=== PATIENT | male | born 1985 | race Caucasian/White ===

== ENCOUNTER 2019-10-09 09:36 | Emergency (ER) | payer OTHER ==
[2019-10-09 10:08] VITALS: TEMP 97.9
[2019-10-09] MEDS ORDERED: KETOROLAC 30 MG/ML 1 ML VIAL IVP STA (10:40)
--- NOTE | 2019-10-09 10:44 | ED ---
General Adult HPI - General Chief complaint: Abdominal Pain Stated complaint: Abd pain Time Seen by Provider: 10/09/19 10:08 Source: patient, RN notes reviewed Mode of arrival: ambulatory Limitations: no limitations - History of Present Illness Initial comments: 34-year-old male with a past medical history migraines, GERD presents to the emergency department for a chief of abdominal pain 2 months. Patient states this is consistent with right flank pain as well as lower abdominal pain. States it has a consistent for 2 months. States he has been at [facility] for this complaint several times. States he needs something for pain. Patient has not followed up with his doctor outpatient. Patient admits to some nausea vomiting associated with this as well as loose stools. Patient has no other complaints at this time including shortness of breath, chest pain, headache, or visual changes. - Related Data Home Medications Medication Instructions Recorded Confirmed No Known Home Medications 10/05/16 10/05/16 Allergies Allergy/AdvReac Type Severity Reaction Status Date / Time No Known Allergies Allergy Verified 10/05/16 08:14 Review of Systems ROS Statement: Those systems with pertinent positive or pertinent negative responses have been documented in the HPI. ROS Other: All systems not noted in ROS Statement are negative. Past Medical History Past Medical History: GERD/Reflux, Hypertension Additional Past Medical History / Comment(s): hx migraines, wound on testicle History of Any Multi-Drug Resistant Organisms: None Reported Additional Past Surgical History / Comment(s): fx Tibia and fibula, I&D testicle Past Anesthesia/Blood Transfusion Reactions: No Reported Reaction Past Psychological History: Depression Smoking Status: Current every day smoker Past Alcohol Use History: Daily, Heavy Past Drug Use History: None Reported - Past Family History Mother Family Medical History: Cancer Additional Family Medical History / Comment(s): cervical cancer Father Family Medical History: Cancer Additional Family Medical History / Comment(s): Father in 1997 from lung and liver cancer General Exam Limitations: no limitations General appearance: alert, in no apparent distress Head exam: Present: atraumatic Eye exam: Present: normal appearance, PERRL, EOMI. Absent: scleral icterus, conjunctival injection, periorbital swelling ENT exam: Present: normal exam, mucous membranes moist Neck exam: Present: normal inspection, full ROM. Absent: tenderness, meningismus, lymphadenopathy Respiratory exam: Present: normal lung sounds bilaterally. Absent: respiratory distress, wheezes, rales, rhonchi, stridor Cardiovascular Exam: Present: regular rate, normal rhythm, normal heart sounds. Absent: systolic murmur, diastolic murmur, rubs, gallop, clicks GI/Abdominal exam: Present: soft, tenderness (Tenderness noted in the left upper quadrant, right lower quadrant, and left lower quadrant. No right upper quadrant tenderness.), normal bowel sounds. Absent: distended, guarding, rebound, rigid Back exam: Absent: CVA tenderness (R), CVA tenderness (L) Neurological exam: Present: alert Course Vital Signs 10/09/19 10:05 Temperature 97.9 F Pulse Rate 94 Respiratory 18 Rate Blood Pressure 161/97 O2 Sat by Pulse 99 Oximetry Medical Decision Making - Medical Decision Making HPI and physical exam as documented. Vitals are stable CBC is unremarkable. CMP shows some mild dehydration, patient was given fluids. Urinalysis unremarkable. Urine drug screen is noted to be positive for opiates, patient does not have a prescription for this and has not been seen in emergency department in [address] abdomen and pelvis shows bilateral striated nephrograms with patchy hypoenhancement of the right greater than the left. Suggestive of bilateral pyelonephritis. However urinalysis does not show any evidence of infection. I did review this with Dr. Groves. We do not see any fat straining. There are also a couple borderline to mildly enlarged retroperitoneal lymph nodes that are likely reactive. I discussed this with patient and discuss he needs to follow-up with Dr. Schofield his primary care to monitor these. I discussed he needs to return if he has any worsening symptoms - Lab Data Result diagrams: 10/09/19 10:45 10/09/19 10:45 Lab Results 10/09/19 10/09/19 10/09/19 Range/Units 10:45 10:45 10:45 WBC 10.6 (3.8-10.6) k/uL RBC 4.57 (4.30-5.90) m/uL Hgb 14.5 (13.0-17.5) gm/dL Hct 42.7 (39.0-53.0) % MCV 93.4 (80.0-100.0) fL MCH 31.8 (25.0-35.0) pg MCHC 34.0 (31.0-37.0) g/dL RDW 13.1 (11.5-15.5) % Plt Count 351 (150-450) k/uL Neutrophils % 73 % Lymphocytes % 12 % Monocytes % 7 % Eosinophils % 4 % Basophils % 2 % Neutrophils # 7.8 H (1.3-7.7) k/uL Lymphocytes # 1.2 (1.0-4.8) k/uL Monocytes # 0.8 (0-1.0) k/uL Eosinophils # 0.4 (0-0.7) k/uL Basophils # 0.3 H (0-0.2) k/uL Sodium 138 (137-145) mmol/L Potassium 3.7 (3.5-5.1) mmol/L Chloride 99 (98-107) mmol/L Carbon Dioxide 32 H (22-30) mmol/L Anion Gap 7 mmol/L BUN 11 (9-20) mg/dL Creatinine 0.72 (0.66-1.25) mg/dL Est GFR (CKD-EPI)AfAm >90 (>60 ml/min/1.73 sqM) Est GFR (CKD-EPI)NonAf >90 (>60 ml/min/1.73 sqM) Glucose 91 (74-99) mg/dL Calcium 8.9 (8.4-10.2) mg/dL Total Bilirubin 0.6 (0.2-1.3) mg/dL AST 77 H (17-59) U/L ALT 107 H (21-72) U/L Alkaline Phosphatase 122 (38-126) U/L Total Protein 7.5 (6.3-8.2) g/dL Albumin 3.5 (3.5-5.0) g/dL Amylase 38 (30-110) U/L Lipase 76 (23-300) U/L Urine Color Yellow Urine Appearance Clear (Clear) Urine pH 6.5 (5.0-8.0) Ur Specific [place] 1.008 (1.001-1.035) Urine Protein Negative (Negative) Urine Glucose (UA) Negative (Negative) Urine Ketones Negative (Negative) Urine Blood Negative (Negative) Urine Nitrite Negative (Negative) Urine Bilirubin Negative (Negative) Urine Urobilinogen 2.0 (<2.0) mg/dL Ur Leukocyte Esterase Negative (Negative) Urine Opiates Screen Detected H (NotDetected) Ur Oxycodone Screen Not Detected (NotDetected) Urine Methadone Screen Not Detected (NotDetected) Ur Propoxyphene Screen Not Detected (NotDetected) Ur Barbiturates Screen Not Detected (NotDetected) U Tricyclic Antidepress Not Detected (NotDetected) Ur Phencyclidine Scrn Not Detected (NotDetected) Ur Amphetamines Screen Not Detected (NotDetected) U Methamphetamines Scrn Not Detected (NotDetected) U Benzodiazepines Scrn Not Detected (NotDetected) Urine Cocaine Screen Not Detected (NotDetected) U Marijuana (THC) Screen Detected H (NotDetected) Disposition Clinical Impression: Abdominal pain, Lymphadenopathy Disposition: HOME SELF-CARE Condition: Good Instructions (If sedation given, give patient instructions): Abdominal Pain (ED) Additional Instructions: Please follow up with Dr. Badillo in one to [address] results. Please return if you have any worsening symptoms. Is patient prescribed a controlled substance at d/c from ED?: No Referrals: Emily Badillo MD [Primary Care Provider] - 1-2 days Time of Disposition: 12:12
[2019-10-09 11:13] LABS: Basophils # (A) 0.3 k/uL (0-0.2); Basophils % (A) 2 %; Eosinophils # (A) 0.4 k/uL (0-0.7); Eosinophils % (A) 4 %; HCT 42.7 % (39.0-53.0); HGB 14.5 gm/dL (13.0-17.5); Lymphocytes # (A) 1.2 k/uL (1.0-4.8); Lymphocytes % (A) 12 %; MCH 31.8 pg (25.0-35.0); MCV 93.4 fL (80.0-100.0); Mean Platelet Volume 6.2; Monocytes # (A) 0.8 k/uL (0-1.0); Monocytes % (A) 7 %; Neutrophils # (A) 7.8 k/uL (1.3-7.7); Neutrophils % (A) 73 %; Platelet Count 351 k/uL (150-450); RBC 4.57 m/uL (4.30-5.90); RDW 13.1 % (11.5-15.5); WBC 10.6 k/uL (3.8-10.6)
[2019-10-09 11:24] LABS: ALT 107 U/L (21-72); AST 77 U/L (17-59); African American GFR (CKD) >90 (>60 ml/min/1.73 sqM); Albumin 3.5 g/dL (3.5-5.0); Alkaline Phosphatase 122 U/L (38-126); Amylase 38 U/L (30-110); Anion Gap 7 mmol/L; Blood Urea Nitrogen 11 mg/dL (9-20); Calcium 8.9 mg/dL (8.4-10.2); Carbon Dioxide 32 mmol/L (22-30); Chloride 99 mmol/L (98-107); Glucose 91 mg/dL (74-99); Non-African American GFR(CKD) >90 (>60 ml/min/1.73 sqM); Potassium 3.7 mmol/L (3.5-5.1); Sodium 138 mmol/L (137-145); Total Bilirubin 0.6 mg/dL (0.2-1.3); Total Protein 7.5 g/dL (6.3-8.2)
[2019-10-09 11:30] LABS: Appearance,Urine Clear (Clear); Bilirubin,Urine Negative (Negative); Blood,Urine Negative (Negative); Color,Urine Yellow; Glucose,Urine (UA) Negative (Negative); Ketones,Urine Negative (Negative); Leukocyte Esterase,Urine Negative (Negative); Nitrite,Urine Negative (Negative); PH, Urine 6.5 (5.0-8.0); Protein,Urine Negative (Negative); Specific Gravity,Urine 1.008 (1.001-1.035)
--- NOTE | 2019-10-09 11:32 | CT ---
EXAMINATION TYPE: CT abdomen pelvis w con DATE OF EXAM: 10/09/2019 COMPARISON: 08/25/2012 HISTORY: 34-year-old male with mid abdominal, pelvic and Right sided flank pain with black stools and bloody emesis TECHNIQUE: Contiguous axial scanning of the abdomen and pelvis following administration of 100 ml Iso angelito 300 IV contrast. Delayed images through the kidneys and coronal/sagittal reconstructions perform ed. CT DLP: 725.8 mGycm Automated exposure control for dose reduction was used. FINDINGS: Heart normal size without pericardial effusion. Lungs clear without pleural effusion. Focal triangular hypodensity anterior falciform ligament within the left liver lobe most likely focal fat or perfusion variation. No biliary ductal dilatation. Portal venous system is patent. Gallbladder, adrenal glands, and pancreas within normal limits. Small nonspecific 6 mm hypodensity posterior spleen is too small for accurate CT characterization, pr obable tiny cyst. Bilateral kidneys show generalized patchy cortical hypoenhancement on the delayed kidney images. A fe w cortical cysts are present on the left, largest measuring 2.0 cm. Otherwise, there is symmetric upt aditi and excretion of contrast from the kidneys. A few borderline to mildly enlarged retroperitoneal lymph nodes measuring 1 cm left para-aortic and 9 mm aortocaval. No dilated small bowel, free fluid, or free air. Moderate stool burden. No pericolonic inflammatory change. Bladder nondistended. No abnormal fluid collection pelvis or pelvic lymphadenopathy. Bones: No osseous destructive process. IMPRESSION: 1. BILATERAL STRIATED NEPHROGRAMS WITH PATCHY HYPOENHANCEMENT OF THE RIGHT GREATER THAN LEFT KIDNEYS. FINDINGS HIGHLY SUGGESTIVE OF BILATERAL PYELONEPHRITIS. CLINICALLY CORRELATE. 2. A COUPLE BORDERLINE TO MILDLY ENLARGED RETROPERITONEAL LYMPH NODES MEASURING UP TO 1 CM ARE LIKELY REACTIVE.
[2019-10-09 11:51] LABS: Amphetamine Screen,Urine Not Detected (NotDetected); Barbiturate Screen,Urine Not Detected (NotDetected); Benzodiazepines Screen,Urine Not Detected (NotDetected); Cocaine Screen,Urine Not Detected (NotDetected); Methadone Screen, Urine Not Detected (NotDetected); Opiate Screen,Urine Detected (NotDetected); Oxycodone Screen, Urine Not Detected (NotDetected); Phencyclidine Screen,Urine Not Detected (NotDetected); Tricyclic Antidepressant,Urine Not Detected (NotDetected); Urn Cannabinoid Scrn Detected (NotDetected)
[2019-10-09 12:31] VITALS: BP 150/88; PULSE 88; RESP 16
== END 2019-10-09 12:16 | disposition home or self-care (01) ==
LOC: EC 09:36
DX: R59.1 Generalized enlarged lymph nodes (principal); R10.30 Lower abdominal pain, unspecified; E86.0 Dehydration; I10 Essential (primary) hypertension; F17.200 Nicotine dependence, unspecified, uncomplicated
CPT/HCPCS: 36415; 80053; 82150; 83690; 85025; 81003; 80306; 74177; 96374; 99284; J1885; Q9967

== ENCOUNTER 2019-10-10 10:44 | Emergency (ER) | payer OTHER ==
[2019-10-10 11:01] VITALS: RESP 18
[2019-10-10] MEDS ORDERED: KETOROLAC 30 MG/ML 1 ML VIAL IVP STA (11:13)
[2019-10-10] MEDS ORDERED: ONDANSETRON 4 MG/2 ML VIAL IVP STA (11:13)
[2019-10-10] MEDS ORDERED: SODIUM CHLORIDE 0.9% 1,000 ML IV STA (11:13)
[2019-10-10] MEDS ORDERED: PANTOPRAZOLE 40 MG/10 ML VIAL IVP STA (11:13)
--- NOTE | 2019-10-10 11:30 | ED ---
Abdominal Pain HPI - General Chief Complaint: Abdominal Pain Stated Complaint: Abd Pain Time Seen by Provider: 10/10/19 10:48 Source: EMS, RN notes reviewed, old records reviewed Mode of arrival: EMS Limitations: no limitations - History of Present Illness Initial Comments: This Patient is a 34-year-old male, who presents emergency Department today for reevaluation after his ER visit yesterday. He complains of left-sided abdominal pain and flank pain and lower abdominal pain for the past day. He reports yesterday was diffuse abdominal pain. He also complains of some bloody stools, and reports that he has been vomiting up some blood. Patient states that he was told to follow up with his primary care doctor but has not been able to, could not deal with the pain today. Patient states that he has had no recent fevers or chills. - Related Data Previous Rx's Medication Instructions Recorded Ketorolac [Toradol] 10 mg PO TID #15 tab 10/10/19 Ondansetron Odt [Zofran Odt] 4 mg PO Q8HR PRN #12 tab 10/10/19 Pantoprazole [Protonix] 40 mg PO DAILY #40 tablet. 10/10/19 Allergies Allergy/AdvReac Type Severity Reaction Status Date / Time No Known Allergies Allergy Verified 10/05/16 08:14 Review of Systems ROS Statement: Those systems with pertinent positive or pertinent negative responses have been documented in the HPI. ROS Other: All systems not noted in ROS Statement are negative. Past Medical History Past Medical History: GERD/Reflux, Hypertension Additional Past Medical History / Comment(s): hx migraines, wound on testicle History of Any Multi-Drug Resistant Organisms: None Reported Additional Past Surgical History / Comment(s): fx Tibia and fibula, I&D testicle Past Anesthesia/Blood Transfusion Reactions: No Reported Reaction Past Psychological History: Depression Smoking Status: Current every day smoker Past Alcohol Use History: Daily, Heavy Past Drug Use History: None Reported - Past Family History Mother Family Medical History: Cancer Additional Family Medical History / Comment(s): cervical cancer Father Family Medical History: Cancer Additional Family Medical History / Comment(s): Father in 1997 from lung and liver cancer General Exam - General Exam Comments Initial Comments: 34-year-old male. Alert and oriented. No sleeping in his chest. Limitations: no limitations General appearance: alert, in no apparent distress Head exam: Present: atraumatic, normocephalic, normal inspection Eye exam: Present: normal appearance, PERRL, EOMI. Absent: scleral icterus, conjunctival injection, periorbital swelling ENT exam: Present: normal exam, mucous membranes moist Neck exam: Present: normal inspection. Absent: tenderness, meningismus, lymphadenopathy Respiratory exam: Present: normal lung sounds bilaterally. Absent: respiratory distress, wheezes, rales, rhonchi, stridor Cardiovascular Exam: Present: regular rate, normal rhythm, normal heart sounds. Absent: systolic murmur, diastolic murmur, rubs, gallop, clicks GI/Abdominal exam: Present: soft, tenderness (Left upper quadrant and left lower quadrant tenderness), normal bowel sounds. Absent: distended, guarding, re bound, rigid Extremities exam: Present: normal inspection, full ROM, normal capillary refill. Absent: tenderness, pedal edema, joint swelling, calf tenderness Back exam: Present: normal inspection Neurological exam: Present: alert, oriented X3, CN II-XII intact Psychiatric exam: Present: normal affect, normal mood Course Vital Signs 10/10/19 10/10/19 10/10/19 10:58 12:30 14:30 Temperature 97.8 F Pulse Rate 88 64 68 Respiratory 18 18 18 Rate Blood Pressure 160/102 158/99 160/92 O2 Sat by Pulse 98 99 99 Oximetry 10/10/19 16:41 Temperature 98.3 F Pulse Rate 72 Respiratory 18 Rate Blood Pressure 159/89 O2 Sat by Pulse 99 Oximetry Medical Decision Making - Medical Decision Making [id number] male presents today for evaluation for left-sided abdominal pain, flank pain. He was here 2 days ago and was having right-sided flank pain at that time. He had this CAT scan which shows normal swelling to the kidney and there is concern for pyelonephritis the Patient had normal urine at that time. Patient's urinalysis and blood work again today is unremarkable. I discussed these with Dr. Roy. And then discussed the case with radiologist who reread the report. Discussed other differential for kidney appearance on previous CAT scan could be related to renal infarct, with Dr. Kapadia. Discussed concern for vasculitis. Inflammatory markers were completed. Dr. Kapadia recommended a CT ZUNIGA of the abdomen and pelvis. This was performed and was negative for any vascular abnormalities at this time and throughout the abdominal and pelvis region. Patient was reevaluated multiple times, continued be comfortable after just receiving Toradol. I discussed that Patient can follow-up with urology in regards to abdominal kidney findings as well as primary care doctor. We'll put the Patient also on nausea medication for times. He did say that he 7 episodes of vomiting and reports that he had some blood noted at that time. He's had no vomiting and emergency department. And has been resting comfortably in bed and sleeping. Strict return parameters and close PCP follow-up. Patient is agreeable to treatment plan. - Lab Data Result diagrams: 10/10/19 11:15 10/10/19 11:15 Lab Results 10/10/19 10/10/19 10/10/19 Range/Units 11:15 11:15 11:15 WBC 11.1 H (3.8-10.6) k/uL RBC 4.59 (4.30-5.90) m/uL Hgb 14.8 (13.0-17.5) gm/dL Hct 42.7 (39.0-53.0) % MCV 93.1 (80.0-100.0) fL MCH 32.2 (25.0-35.0) pg MCHC 34.6 (31.0-37.0) g/dL RDW 13.0 (11.5-15.5) % Plt Count 327 (150-450) k/uL Neutrophils % 79 % Lymphocytes % 11 % Monocytes % 5 % Eosinophils % 2 % Basophils % 1 % Neutrophils # 8.7 H (1.3-7.7) k/uL Lymphocytes # 1.2 (1.0-4.8) k/uL Monocytes # 0.6 (0-1.0) k/uL Eosinophils # 0.3 (0-0.7) k/uL Basophils # 0.1 (0-0.2) k/uL ESR (0-15) mm/hr PT 10.5 (9.0-12.0) sec INR 1.0 (<1.2) APTT 24.5 (22.0-30.0) sec Sodium 137 (137-145) mmol/L Potassium 5.0 (3.5-5.1) mmol/L Chloride 103 (98-107) mmol/L Carbon Dioxide 27 (22-30) mmol/L Anion Gap 7 mmol/L BUN 11 (9-20) mg/dL Creatinine 0.60 L (0.66-1.25) mg/dL Est GFR (CKD-EPI)AfAm >90 (>60 ml/min/1.73 sqM) Est GFR (CKD-EPI)NonAf >90 (>60 ml/min/1.73 sqM) Glucose 91 (74-99) mg/dL Calcium 9.1 (8.4-10.2) mg/dL Total Bilirubin 0.7 (0.2-1.3) mg/dL AST 88 H (17-59) U/L ALT 112 H (21-72) U/L Alkaline Phosphatase 130 H (38-126) U/L C-Reactive Protein (<10.0) mg/L Total Protein 8.1 (6.3-8.2) g/dL Albumin 3.8 (3.5-5.0) g/dL Amylase 40 (30-110) U/L Lipase 98 (23-300) U/L Urine Color Urine Appearance (Clear) Urine pH (5.0-8.0) Ur Specific [place] (1.001-1.035) Urine Protein (Negative) Urine Glucose (UA) (Negative) Urine Ketones (Negative) Urine Blood (Negative) Urine Nitrite (Negative) Urine Bilirubin (Negative) Urine Urobilinogen (<2.0) mg/dL Ur Leukocyte Esterase (Negative) Stool Occult Blood (Negative) Hepatitis A IgM Ab 10/10/19 10/10/19 10/10/19 Range/Units 11:15 12:40 13:10 WBC (3.8-10.6) k/uL RBC (4.30-5.90) m/uL Hgb (13.0-17.5) gm/dL Hct (39.0-53.0) % MCV (80.0-100.0) fL MCH (25.0-35.0) pg MCHC (31.0-37.0) g/dL RDW (11.5-15.5) % Plt Count (150-450) k/uL Neutrophils % % Lymphocytes % % Monocytes % % Eosinophils % % Basophils % % Neutrophils # (1.3-7.7) k/uL Lymphocytes # (1.0-4.8) k/uL Monocytes # (0-1.0) k/uL Eosinophils # (0-0.7) k/uL Basophils # (0-0.2) k/uL ESR (0-15) mm/hr PT (9.0-12.0) sec INR (<1.2) APTT (22.0-30.0) sec Sodium (137-145) mmol/L Potassium (3.5-5.1) mmol/L Chloride (98-107) mmol/L Carbon Dioxide (22-30) mmol/L Anion Gap mmol/L BUN (9-20) mg/dL Creatinine (0.66-1.25) mg/dL Est GFR (CKD-EPI)AfAm (>60 ml/min/1.73 sqM) Est GFR (CKD-EPI)NonAf (>60 ml/min/1.73 sqM) Glucose (74-99) mg/dL Calcium (8.4-10.2) mg/dL Total Bilirubin (0.2-1.3) mg/dL AST (17-59) U/L ALT (21-72) U/L Alkaline Phosphatase (38-126) U/L C-Reactive Protein 39.1 H (<10.0) mg/L Total Protein (6.3-8.2) g/dL Albumin (3.5-5.0) g/dL Amylase (30-110) U/L Lipase (23-300) U/L Urine Color Yellow Urine Appearance Clear (Clear) Urine pH 7.0 (5.0-8.0) Ur Specific [place] 1.008 (1.001-1.035) Urine Protein Negative (Negative) Urine Glucose (UA) Negative (Negative) Urine Ketones Negative (Negative) Urine Blood Negative (Negative) Urine Nitrite Negative (Negative) Urine Bilirubin Negative (Negative) Urine Urobilinogen <2.0 (<2.0) mg/dL Ur Leukocyte Esterase Negative (Negative) Stool Occult Blood Negative (Negative) Hepatitis A IgM Ab 10/10/19 10/10/19 Range/Units 14:50 15:45 WBC (3.8-10.6) k/uL RBC (4.30-5.90) m/uL Hgb (13.0-17.5) gm/dL Hct (39.0-53.0) % MCV (80.0-100.0) fL MCH (25.0-35.0) pg MCHC (31.0-37.0) g/dL RDW (11.5-15.5) % Plt Count (150-450) k/uL Neutrophils % % Lymphocytes % % Monocytes % % Eosinophils % % Basophils % % Neutrophils # (1.3-7.7) k/uL Lymphocytes # (1.0-4.8) k/uL Monocytes # (0-1.0) k/uL Eosinophils # (0-0.7) k/uL Basophils # (0-0.2) k/uL ESR 50 H (0-15) mm/hr PT (9.0-12.0) sec INR (<1.2) APTT (22.0-30.0) sec Sodium (137-145) mmol/L Potassium (3.5-5.1) mmol/L Chloride (98-107) mmol/L Carbon Dioxide (22-30) mmol/L Anion Gap mmol/L BUN (9-20) mg/dL Creatinine (0.66-1.25) mg/dL Est GFR (CKD-EPI)AfAm (>60 ml/min/1.73 sqM) Est GFR (CKD-EPI)NonAf (>60 ml/min/1.73 sqM) Glucose (74-99) mg/dL Calcium (8.4-10.2) mg/dL Total Bilirubin (0.2-1.3) mg/dL AST (17-59) U/L ALT (21-72) U/L Alkaline Phosphatase (38-126) U/L C-Reactive Protein (<10.0) mg/L Total Protein (6.3-8.2) g/dL Albumin (3.5-5.0) g/dL Amylase (30-110) U/L Lipase (23-300) U/L Urine Color Urine Appearance (Clear) Urine pH (5.0-8.0) Ur Specific [place] (1.001-1.035) Urine Protein (Negative) Urine Glucose (UA) (Negative) Urine Ketones (Negative) Urine Blood (Negative) Urine Nitrite (Negative) Urine Bilirubin (Negative) Urine Urobilinogen (<2.0) mg/dL Ur Leukocyte Esterase (Negative) Stool Occult Blood (Negative) Hepatitis A IgM Ab NEGATIVE 10/10/19 11:30 EKG shows sinus rhythm with short SD.. Ventricular rate 69 bpm. SD interval is 108 ms. QRS duration is 82 ms. QT QTc is 394/422 ms. - Radiology Data Radiology results: report reviewed Normal aorta vasculatures noted. The findings the kidney are stable of multiple focal defects again noted in the cortices of the kidney. AB is unremarkable. Disposition Clinical Impression: Structural abnormality of kidney, Abdominal pain, Nausea & vomiting Disposition: HOME SELF-CARE Condition: Good Instructions (If sedation given, give patient instructions): Renal Colic (ED), Abdominal Pain (ED) Additional Instructions: Patient advised to use prescribed medications, follow-up with urology and primary care doctor. Return to the emergency department if any alarming signs or symptoms occur. Prescriptions: Pantoprazole [Protonix] 40 mg PO DAILY #40 tablet. Ketorolac [Toradol] 10 mg PO TID #15 tab Ondansetron Odt [Zofran Odt] 4 mg PO Q8HR PRN #12 tab PRN Reason: Nausea Is patient prescribed a controlled substance at d/c from ED?: No Referrals: Emily Badillo MD [Primary Care Provider] - 1-2 days González Oneill MD [STAFF PHYSICIAN] - 1-2 days Time of Disposition: 16:18
[2019-10-10 11:36] LABS: Basophils # (A) 0.1 k/uL (0-0.2); Basophils % (A) 1 %; Eosinophils # (A) 0.3 k/uL (0-0.7); Eosinophils % (A) 2 %; HCT 42.7 % (39.0-53.0); HGB 14.8 gm/dL (13.0-17.5); Lymphocytes # (A) 1.2 k/uL (1.0-4.8); Lymphocytes % (A) 11 %; MCH 32.2 pg (25.0-35.0); MCHC 34.6 g/dL (31.0-37.0); MCV 93.1 fL (80.0-100.0); Mean Platelet Volume 6.5; Monocytes # (A) 0.6 k/uL (0-1.0); Monocytes % (A) 5 %; Neutrophils # (A) 8.7 k/uL (1.3-7.7); Neutrophils % (A) 79 %; Platelet Count 327 k/uL (150-450); RBC 4.59 m/uL (4.30-5.90); WBC 11.1 k/uL (3.8-10.6)
[2019-10-10 11:42] LABS: ALT 112 U/L (21-72); AST 88 U/L (17-59); African American GFR (CKD) >90 (>60 ml/min/1.73 sqM); Albumin 3.8 g/dL (3.5-5.0); Alkaline Phosphatase 130 U/L (38-126); Amylase 40 U/L (30-110); Anion Gap 7 mmol/L; Blood Urea Nitrogen 11 mg/dL (9-20); Calcium 9.1 mg/dL (8.4-10.2); Carbon Dioxide 27 mmol/L (22-30); Chloride 103 mmol/L (98-107); Glucose 91 mg/dL (74-99); Non-African American GFR(CKD) >90 (>60 ml/min/1.73 sqM); Sodium 137 mmol/L (137-145); Total Bilirubin 0.7 mg/dL (0.2-1.3); Total Protein 8.1 g/dL (6.3-8.2)
[2019-10-10 11:50] LABS: Partial Thromboplastin Time 24.5 sec (22.0-30.0); Prothrombin Time 10.5 sec (9.0-12.0)
--- NOTE | 2019-10-10 12:06 | XR ---
EXAMINATION TYPE: XR KUB DATE OF EXAM: 10/10/2019 COMPARISON: NONE HISTORY: Pain TECHNIQUE: Single supine KUB image of the abdomen is obtained FINDINGS: Small bowel demonstrates no evidence for dilatation or air fluid levels. Gas and fecal material is seen in non-distended colon. No convincing evidence for pneumoperitoneum. No unusual calcifications. The lung bases are clear. The osseous structures are intact. IMPRESSION: 1. Overall nonobstructive bowel gas pattern.
[2019-10-10 12:50] LABS: Appearance,Urine Clear (Clear); Bilirubin,Urine Negative (Negative); Blood,Urine Negative (Negative); Color,Urine Yellow; Glucose,Urine (UA) Negative (Negative); Ketones,Urine Negative (Negative); Leukocyte Esterase,Urine Negative (Negative); Nitrite,Urine Negative (Negative); Protein,Urine Negative (Negative); Specific Gravity,Urine 1.008 (1.001-1.035); Urobilinogen,Urine <2.0 mg/dL (<2.0)
[2019-10-10 15:35] LABS: Hepatitis A Antibody IgM NEGATIVE
--- NOTE | 2019-10-10 15:57 | CT ---
CT angiogram abdomen pelvis HISTORY: Abnormal CT Correlation CT 10/09/2019 Helical acquisition obtained pre and post menstruation 100 cc Isovue-300 intravenous contrast. 3-dime nsional reconstructions performed on an alternate workstation. Automated exposure control for dose re duction technique. DLP 725.8 mGycm There is no evident dissection, embolus, or aneurysm. Distal thoracic aorta, abdominal aorta, celiac axis, superior mesenteric artery, inferior mesenteric artery, renal arteries, common iliac, internal and external iliac, common femoral, proximal deep and superficial arteries are patent. Multiple focal defects again noted within the cortices of the kidneys. Focal density within the right lobe of the liver on axial image #51 may represent flash filling hemangioma but is indeterminate. Th ere is a small umbilical hernia containing fat. IMPRESSION: Normal aorta and vasculature as described. Findings in the kidneys are stable.
[2019-10-10] MEDS ORDERED: MORPHINE SULFATE 4 MG/ML SYRINGE IVP STA (16:25)
[2019-10-10 16:43] VITALS: BP 159/89; PULSE 72; TEMP 98.3
[2019-10-11 00:15] LABS: Hepatitis B Core IgM Reactive (Non-Reactive); Hepatitis C IgG Antibody Reactive (Non-Reactive)
[2019-10-14 13:05] LABS: Hepatitis B Surface Antigen Reactive (Non-Reactive)
== END 2019-10-10 16:41 | disposition home or self-care (01) ==
LOC: EC 10:44
DX: N28.89 Other specified disorders of kidney and ureter (principal); R10.32 Left lower quadrant pain; R11.2 Nausea with vomiting, unspecified; I10 Essential (primary) hypertension; F17.200 Nicotine dependence, unspecified, uncomplicated
CPT/HCPCS: 36415; 93005; 80053; 80074; 85652; 82150; 83690; 85025; 85610; 85730; 86140; 82272; 81003; 87040; 74018; 74174; 99285; 96374; 96375 ×3; 96361; J2270; J2405; J1885; C9113; Q9967; 87340

== ENCOUNTER 2019-11-26 04:30 | Emergency (ER) | payer OTHER ==
--- NOTE | 2019-11-26 05:28 | ED ---
General Adult HPI - General Chief complaint: Upper Respiratory Infection Stated complaint: Chest Pain Time Seen by Provider: 11/26/19 04:52 Source: patient Mode of arrival: ambulatory Limitations: no limitations - History of Present Illness Initial comments: This patient is 34-year-old man who presents to be evaluated for cough and chest pain. The patient states that symptoms started with some congestion and a cough to 3 days ago. I states that over the past day he has been having bilateral upper chest pain mainly when he coughs. Pain is aching, worse with coughing, no pain relating factors. He has not had angina type symptoms. Patient states that the cough does occasionally produce some yellow or brown sputum. No fever or chills noted. Onset/Timin -: days(s) Location: chest Radiation: non-radiation Quality: aching Improves with: none Worsens with: other (Coughing) Associated Symptoms: chest pain Treatments Prior to Arrival: none - Related Data Previous Rx's Medication Instructions Recorded Ketorolac [Toradol] 10 mg PO TID #15 tab 10/10/19 Ondansetron Odt [Zofran Odt] 4 mg PO Q8HR PRN #12 tab 10/10/19 Pantoprazole [Protonix] 40 mg PO DAILY #40 tablet. 10/10/19 Lisinopril [Zestril] 10 mg PO DAILY #15 tab 11/26/19 Allergies Allergy/AdvReac Type Severity Reaction Status Date / Time No Known Allergies Allergy Verified 11/26/19 04:48 Review of Systems ROS Statement: Those systems with pertinent positive or pertinent negative responses have been documented in the HPI. ROS Other: All systems not noted in ROS Statement are negative. Constitutional: Denies: fever, chills ENT: Reports: congestion Respiratory: Reports: as per HPI, cough. Denies: dyspnea, wheezes, hemoptysis Cardiovascular: Reports: as per HPI, chest pain. Denies: palpitations, orthopnea, edema, syncope Gastrointestinal: Denies: abdominal pain, nausea, vomiting Skin: Denies: rash Neurological: Denies: headache, weakness, numbness Past Medical History Past Medical History: GERD/Reflux, Hypertension Additional Past Medical History / Comment(s): hx migraines, wound on testicle, History of Any Multi-Drug Resistant Organisms: None Reported Additional Past Surgical History / Comment(s): fx Tibia and fibula, I&D testicle, Past Anesthesia/Blood Transfusion Reactions: No Reported Reaction Past Psychological History: Depression Smoking Status: Current every day smoker Past Alcohol Use History: Daily, Heavy Past Drug Use History: None Reported - Past Family History Mother Family Medical History: Cancer Additional Family Medical History / Comment(s): cervical cancer Father Family Medical History: Cancer Additional Family Medical History / Comment(s): Father in 1997 from lung and liver cancer General Exam Limitations: no limitations General appearance: alert, in no apparent distress Head exam: Present: atraumatic, normocephalic Eye exam: Present: normal appearance. Absent: scleral icterus, conjunctival injection ENT exam: Present: normal oropharynx Respiratory exam: Present: chest wall tenderness. Absent: respiratory distress, wheezes, rales, rhonchi, stridor, accessory muscle use, decreased breath sounds Cardiovascular Exam: Present: regular rate, normal rhythm, normal heart sounds. Absent: systolic murmur, diastolic murmur, rubs, gallop GI/Abdominal exam: Present: soft. Absent: distended, tenderness, guarding, rebound, rigid Extremities exam: Present: normal inspection, normal capillary refill. Absent: pedal edema, calf tenderness Back exam: Present: normal inspection. Absent: paraspinal tenderness, vertebral tenderness Neurological exam: Present: alert Skin exam: Present: warm, dry, intact, normal color. Absent: rash Course Vital Signs 11/26/19 04:45 Temperature 97.8 F Pulse Rate 102 H Respiratory 19 Rate Blood Pressure 206/134 O2 Sat by Pulse 98 Oximetry EKG Findings - EKG Results: EKG: interpreted by DAY, sinus rhythm (Rate 95 bpm), normal axis, normal QRS - Blocks, [place], Hypertrophy, ST Abn: Repolarization changes or abnormalities: Q-T interval prolongation Medical Decision Making - Medical Decision Making Patient's 34-year-old man presenting to be evaluated for upper chest pain associated with cough. He does have history of physical exam consistent with acute bronchitis. The patient also is hypertensive. He states that he does have history of hypertension and that he previously was on medication. I mentioned a number of medications and he felt that it may have been lisinopril that he was taking earlier, I therefore I did give him a dose of this medication and will prescribe for him as well. The patient to follow-up for possible dose adjustment. We discussed appropriate further care and follow-up as well as return parameters. Disposition Clinical Impression: Bronchitis, Hypertension Disposition: HOME SELF-CARE Condition: Good Instructions (If sedation given, give patient instructions): Acute Bronchitis (ED), Hypertension (ED) Prescriptions: Lisinopril [Zestril] 10 mg PO DAILY #15 tab Is patient prescribed a controlled substance at d/c from ED?: No Referrals: Emily Badillo MD [Primary Care Provider] - 1-2 days
--- NOTE | 2019-11-26 06:33 | XR ---
EXAM: XR Chest, 2 Views CLINICAL HISTORY: cough TECHNIQUE: Frontal and lateral views of the chest. COMPARISON: No relevant prior studies available. FINDINGS: Lungs: Unremarkable. No consolidation. The pulmonary vasculature demonstrates no significant radiographic abnormality. Pleural space: Unremarkable. No pneumothorax. No large pleural effusion. Heart: Unremarkable. No cardiomegaly. Mediastinum: Unremarkable. No significant abnormality identified. The trachea is midline. Bones/joints: Unremarkable. IMPRESSION: Normal chest radiographs.
[2019-11-26] MEDS ORDERED: LISINOPRIL 10 MG TAB PO STA (06:44)
[2019-11-26] MEDS ORDERED: AZITHROMYCIN 500 MG TAB PO STA (06:46)
[2019-11-26 07:02] VITALS: PULSE 95; RESP 18
[2019-11-26 07:49] VITALS: TEMP 98.6
[2019-11-26] MEDS ORDERED: cloNIDine HCL 0.2 MG TAB PO STA (08:28)
[2019-11-26 08:30] VITALS: BP 186/125
== END 2019-11-26 10:00 | disposition home or self-care (01) ==
LOC: EC 04:30
DX: J40 Bronchitis, not specified as acute or chronic (principal); I10 Essential (primary) hypertension; F17.200 Nicotine dependence, unspecified, uncomplicated
CPT/HCPCS: 71046; 93005; 99285

== ENCOUNTER 2020-05-12 18:50 | Emergency (ER) | payer OTHER ==
[2020-05-12 19:05] VITALS: BP 226/152; PULSE 101; RESP 18; TEMP 98.6
--- NOTE | 2020-05-12 19:44 | ED ---
General Adult HPI - General Chief complaint: Overdose Stated complaint: altered mental status Time Seen by Provider: 05/12/20 19:10 Source: patient, police, RN notes reviewed Mode of arrival: ambulatory - History of Present Illness Initial comments: 35-year-old male with polysubstance abuse history presents to the emergency department with police. Police state that bystanders called 911 when patient was swaying and seemed to be falling asleep. Patient reports that he used heroin this morning however police are concerned he used about 2 hours ago. Patient continuously reports he just wants to go home. Patient has no other complaints at this time including shortness of breath, chest pain, abdominal pain, nausea or vomiting, headache, or visual changes. - Related Data Home Medications Medication Instructions Recorded Confirmed Ondansetron Odt [Zofran Odt] 4 mg PO BID PRN 11/26/19 11/26/19 cloNIDine HCL [Catapres] 0.1 mg PO BID 11/26/19 11/26/19 Previous Rx's Medication Instructions Recorded Pantoprazole [Protonix] 40 mg PO DAILY #40 tablet. 10/10/19 Lisinopril [Zestril] 10 mg PO DAILY #15 tab 11/26/19 Allergies Allergy/AdvReac Type Severity Reaction Status Date / Time No Known Allergies Allergy Verified 05/12/20 19:05 Review of Systems ROS Statement: Those systems with pertinent positive or pertinent negative responses have been documented in the HPI. ROS Other: All systems not noted in ROS Statement are negative. Past Medical History Past Medical History: GERD/Reflux, Hypertension Additional Past Medical History / Comment(s): hx migraines, wound on testicle, History of Any Multi-Drug Resistant Organisms: None Reported Additional Past Surgical History / Comment(s): fx Tibia and fibula, I&D testicle, Past Anesthesia/Blood Transfusion Reactions: No Reported Reaction Past Psychological History: Depression Smoking Status: Current every day smoker Past Alcohol Use History: Daily, Heavy Past Drug Use History: Heroin, Marijuana - Past Family History Mother Family Medical History: Cancer Additional Family Medical History / Comment(s): cervical cancer Father Family Medical History: Cancer Additional Family Medical History / Comment(s): Father in 1997 from lung and liver cancer General Exam General appearance: alert, in no apparent distress Head exam: Present: atraumatic, normocephalic, normal inspection Eye exam: Present: normal appearance, PERRL, EOMI. Absent: scleral icterus, conjunctival injection, periorbital swelling ENT exam: Present: normal exam, mucous membranes moist Neck exam: Present: normal inspection. Absent: tenderness, meningismus, lymphadenopathy Respiratory exam: Present: normal lung sounds bilaterally. Absent: respiratory distress, wheezes, rales, rhonchi, stridor Cardiovascular Exam: Present: regular rate, normal rhythm, normal heart sounds. Absent: systolic murmur, diastolic murmur, rubs, gallop, clicks Neurological exam: Present: alert, normal gait Course Vital Signs 05/12/20 19:01 Temperature 98.6 F Pulse Rate 101 H Respiratory 18 Rate Blood Pressure 226/152 O2 Sat by Pulse 100 Oximetry Medical Decision Making - Medical Decision Making Patient presents for possible overdose. He apparently used heroin although the timeframe is unknown. Police report bystanders called when patient was Falling asleep and swaying. Patient states that he just wants to go home. He does not want any evaluation. He is alert and oriented 4. He is not drifting off to sleep. He had a normal gait to the bathroom. He denies suicidal or homicidal thoughts. Patient is becoming increasingly agitated the more I tried to speak with him about staying for further evaluation stating he is fine and didnt want to come in the first place. His blood pressure is very elevated and he is refusing for me to recheck this. He states he has a history of high blood pressure and doesn't care about it. I discussed possible comes of hypertension which he is aware of. Patient requesting to leave AGAINST MEDICAL ADVICE. He did sign out. Disposition Clinical Impression: Polysubstance abuse, Heroin use Disposition: Left Against Medical Advice Condition: Undetermined Instructions (If sedation given, give patient instructions): Adult Overdose (ED) Additional Instructions: Please follow up with primary care in 1-2 days. Return to the emergency room for any worsening symptoms. Is patient prescribed a controlled substance at d/c from ED?: No Referrals: Emily Badillo MD [Primary Care Provider] - 1-2 days Time of Disposition: 19:43
== END 2020-05-12 19:31 | disposition left against medical advice (07) ==
LOC: EC 18:50
DX: F11.90 Opioid use, unspecified, uncomplicated (principal); F19.10 Other psychoactive substance abuse, uncomplicated; I10 Essential (primary) hypertension; F32.9 Major depressive disorder, single episode, unspecified; Z79.899 Other long term (current) drug therapy; F17.200 Nicotine dependence, unspecified, uncomplicated; Z53.20 Procedure and treatment not carried out because of patient's decision for unspecified reasons
CPT/HCPCS: 99284

== ENCOUNTER 2020-05-22 00:26 | Inpatient (IN) | payer OTHER ==
[2020-05-22] MEDS ORDERED: NALOXONE 0.4 MG/ML 1 ML VIAL IV STA (00:35)
[2020-05-22] MEDS ORDERED: NALOXONE 0.4 MG/ML 1 ML VIAL ONE (00:41)
[2020-05-22 00:54] LABS: Basophils # (A) 0.1 k/uL (0-0.2); Basophils % (A) 0 %; Eosinophils # (A) 0.2 k/uL (0-0.7); Eosinophils % (A) 1 %; HCT 43.7 % (39.0-53.0); HGB 15.1 gm/dL (13.0-17.5); Lymphocytes # (A) 2.3 k/uL (1.0-4.8); Lymphocytes % (A) 16 %; MCH 32.7 pg (25.0-35.0); MCHC 34.5 g/dL (31.0-37.0); MCV 94.8 fL (80.0-100.0); Mean Platelet Volume 8.1; Monocytes # (A) 1.2 k/uL (0-1.0); Monocytes % (A) 8 %; Neutrophils # (A) 10.6 k/uL (1.3-7.7); Neutrophils % (A) 72 %; Platelet Count 303 k/uL (150-450); RBC 4.61 m/uL (4.30-5.90); RDW 13.1 % (11.5-15.5); WBC 14.6 k/uL (3.8-10.6)
[2020-05-22] MEDS: SODIUM CHLORIDE 0.9% 1,000 ML IV SCH ×3 (00:55→10:45)
[2020-05-22 01:04] LABS: ALT 99 U/L (4-49); AST 138 U/L (17-59); African American GFR (CKD) >90 (>60 ml/min/1.73 sqM); Albumin 3.7 g/dL (3.5-5.0); Alkaline Phosphatase 131 U/L (38-126); Anion Gap 9 mmol/L; Blood Urea Nitrogen 18 mg/dL (9-20); Calcium 8.9 mg/dL (8.4-10.2); Carbon Dioxide 29 mmol/L (22-30); Chloride 93 mmol/L (98-107); Glucose 124 mg/dL (74-99); Non-African American GFR(CKD) 89 (>60 ml/min/1.73 sqM); Potassium 3.3 mmol/L (3.5-5.1); Sodium 131 mmol/L (137-145); Total Bilirubin 0.4 mg/dL (0.2-1.3); Total Protein 7.5 g/dL (6.3-8.2)
[2020-05-22 01:05] LABS: INR 0.9 (<1.2); Partial Thromboplastin Time 23.2 sec (22.0-30.0); Prothrombin Time 9.4 sec (9.0-12.0)
[2020-05-22] MEDS ORDERED: cloNIDine HCL 0.2 MG TAB PO STA (01:07)
[2020-05-22 01:26] LABS: Appearance,Urine Clear (Clear); Bilirubin,Urine Negative (Negative); Blood,Urine Trace (Negative); Color,Urine Yellow; Glucose,Urine (UA) Negative (Negative); Hyaline Casts,Urine 3 /lpf (0-2); Ketones,Urine Negative (Negative); Leukocyte Esterase,Urine Negative (Negative); Mucus,Urine Rare /hpf; Nitrite,Urine Negative (Negative); PH, Urine 6.5 (5.0-8.0); Protein,Urine 3+ (Negative); RBC,Urine 1 /hpf (0-5); Squamous Epithelial Cell,Urine <1 /hpf (0-4); Urobilinogen,Urine <2.0 mg/dL (<2.0); WBC,Urine 2 /hpf (0-5)
[2020-05-22] MEDS ORDERED: hydrALAZINE HCL 20 MG/ML 1 ML VIAL IVP STA (01:31)
--- NOTE | 2020-05-22 01:33 | ED ---
Overdose HPI - General Chief Complaint: Overdose Stated Complaint: Poss Overdose Time Seen by Provider: 05/22/20 00:33 Source: patient, family Mode of arrival: wheelchair - History of Present Illness Initial Comments: Luis is a 35-year-old male with a known history of IV heroin abuse who is brought to the ER today for evaluation of possible overdose. Per the patient's family member patient was found to have snoring respirations and there is concerning may have overdosed family member brought him in the ER. Patient does admit to using IV heroin earlier tonight denies any attempt to overdose or suicide. She denies any additional complaints including headache vision change chest pain or shortness of breath. He reports a history of high blood pressure for which he doesn't take any of his medications. - Related Data Home Medications Medication Instructions Recorded Confirmed Ondansetron Odt [Zofran Odt] 4 mg PO BID PRN 11/26/19 11/26/19 cloNIDine HCL [Catapres] 0.1 mg PO BID 11/26/19 11/26/19 Previous Rx's Medication Instructions Recorded Pantoprazole [Protonix] 40 mg PO DAILY #40 tablet. 10/10/19 Lisinopril [Zestril] 10 mg PO DAILY #15 tab 11/26/19 Allergies Allergy/AdvReac Type Severity Reaction Status Date / Time No Known Allergies Allergy Verified 05/22/20 00:30 Review of Systems ROS Statement: Those systems with pertinent positive or pertinent negative responses have been documented in the HPI. ROS Other: All systems not noted in ROS Statement are negative. Past Medical History Past Medical History: GERD/Reflux, Hypertension Additional Past Medical History / Comment(s): hx migraines, wound on testicle, History of Any Multi-Drug Resistant Organisms: None Reported Additional Past Surgical History / Comment(s): fx Tibia and fibula, I&D testicl e, Past Anesthesia/Blood Transfusion Reactions: No Reported Reaction Past Psychological History: Depression Smoking Status: Current every day smoker Past Alcohol Use History: Daily, Heavy Past Drug Use History: Heroin, Marijuana - Past Family History Mother Family Medical History: Cancer Additional Family Medical History / Comment(s): cervical cancer Father Family Medical History: Cancer Additional Family Medical History / Comment(s): Father in 1997 from lung and liver cancer General Exam - General Exam Comments Initial Comments: Physical Exam GENERAL: Chronically ill-appearing HENT: Normocephalic, Atraumatic. EYES: Pupils pinpoint PULMONARY: Shallow respirations CARDIOVASCULAR: Tachycardia Bounding radial pulses ABDOMEN: Soft and nontender with normal bowel sounds. SKIN: Lesions left antecubital fossa and left forearm consistent with IV drug abuse : Deferred NEUROLOGIC: Patient is alert and oriented x3. Moving all extremities spontaneously MUSCULOSKELETAL: Normal extremities with adequate strength and full range of motion. No lower extremity swelling or edema. No calf tenderness. PSYCHIATRIC: Normal psychiatric evaluation. Course Vital Signs 05/22/20 05/22/20 05/22/20 00:26 00:41 01:00 Temperature 98.4 F Pulse Rate 113 H 111 H Respiratory 16 13 16 Rate Blood Pressure 238/148 232/149 O2 Sat by Pulse 97 96 Oximetry 05/22/20 05/22/20 05/22/20 01:30 01:42 02:00 Temperature Pulse Rate 92 116 H 81 Respiratory 14 18 18 Rate Blood Pressure 224/148 242/161 201/127 O2 Sat by Pulse 98 98 97 Oximetry 05/22/20 05/22/20 05/22/20 02:45 03:00 03:15 Temperature Pulse Rate 75 73 73 Respiratory 14 16 15 Rate Blood Pressure 185/120 181/113 169/110 O2 Sat by Pulse 98 97 97 Oximetry Medical Decision Making - Medical Decision Making The patient was seen and evaluated history is obtained from family member and patient 35-year-old IV heroin user with apparent it accidental overdose Patient per family hypertensive on arrival EKG was obtained due to profound hypertension and tachycardia, EKG was obtained at 12:35 AM, rate is 109 rhythm is sinus tachycardia with a leftward axis, VA 128, QRS [address] QTC [address] elevations or depressions no evidence of acute ischemia or infarction Labs resulted with multiple abnormalities, hypokalemia, elevated transaminases consistent with history of hepatitis C, mildly elevated troponin likely related to profound hypertension Given patient's history of drug abuse decision was made to avoid beta blockers as there is concern for possible cocaine ingestion, patient was treated with clonidine with minimal improvement in his blood pressure, urine drug screen results with methamphetamine and amphetamines as well as opiates and decision was made to treat hypertension with labetalol, patient had mild improvement decision was made to start a labetalol drip Given the patient has a hypertensive emergency with signs of elevated troponin, patient will be admitted to the ICU for continued labetalol and management Care was discussed with Dr. Wynn who agrees with this plan - Lab Data Result diagrams: 05/22/20 00:44 05/22/20 00:44 Lab Results 05/22/20 05/22/20 05/22/20 Range/Units 00:44 00:44 00:44 WBC 14.6 H (3.8-10.6) k/uL RBC 4.61 (4.30-5.90) m/uL Hgb 15.1 (13.0-17.5) gm/dL Hct 43.7 (39.0-53.0) % MCV 94.8 (80.0-100.0) fL MCH 32.7 (25.0-35.0) pg MCHC 34.5 (31.0-37.0) g/dL RDW 13.1 (11.5-15.5) % Plt Count 303 (150-450) k/uL Neutrophils % 72 % Lymphocytes % 16 % Monocytes % 8 % Eosinophils % 1 % Basophils % 0 % Neutrophils # 10.6 H (1.3-7.7) k/uL Lymphocytes # 2.3 (1.0-4.8) k/uL Monocytes # 1.2 H (0-1.0) k/uL Eosinophils # 0.2 (0-0.7) k/uL Basophils # 0.1 (0-0.2) k/uL PT 9.4 (9.0-12.0) sec INR 0.9 (<1.2) APTT 23.2 (22.0-30.0) sec Sodium 131 L (137-145) mmol/L Potassium 3.3 L (3.5-5.1) mmol/L Chloride 93 L (98-107) mmol/L Carbon Dioxide 29 (22-30) mmol/L Anion Gap 9 mmol/L BUN 18 (9-20) mg/dL Creatinine 1.08 (0.66-1.25) mg/dL Est GFR (CKD-EPI)AfAm >90 (>60 ml/min/1.73 sqM) Est GFR (CKD-EPI)NonAf 89 (>60 ml/min/1.73 sqM) Glucose 124 H (74-99) mg/dL Calcium 8.9 (8.4-10.2) mg/dL Total Bilirubin 0.4 (0.2-1.3) mg/dL AST 138 H (17-59) U/L ALT 99 H (4-49) U/L Alkaline Phosphatase 131 H (38-126) U/L Troponin I (0.000-0.034) ng/mL Total Protein 7.5 (6.3-8.2) g/dL Albumin 3.7 (3.5-5.0) g/dL Urine Color Urine Appearance (Clear) Urine pH (5.0-8.0) Ur Specific [place] (1.001-1.035) Urine Protein (Negative) Urine Glucose (UA) (Negative) Urine Ketones (Negative) Urine Blood (Negative) Urine Nitrite (Negative) Urine Bilirubin (Negative) Urine Urobilinogen (<2.0) mg/dL Ur Leukocyte Esterase (Negative) Urine RBC (0-5) /hpf Urine WBC (0-5) /hpf Ur Squamous Epith Cells (0-4) /hpf Hyaline Casts (0-2) /lpf Urine Mucus (None) /hpf Urine Opiates Screen (NotDetected) Ur Oxycodone Screen (NotDetected) Urine Methadone Screen (NotDetected) Ur Propoxyphene Screen (NotDetected) Ur Barbiturates Screen (NotDetected) U Tricyclic Antidepress (NotDetected) Ur Phencyclidine Scrn (NotDetected) Ur Amphetamines Screen (NotDetected) U Methamphetamines Scrn (NotDetected) U Benzodiazepines Scrn (NotDetected) Urine Cocaine Screen (NotDetected) U Marijuana (THC) Screen (NotDetected) 05/22/20 05/22/20 Range/Units 00:44 01:17 WBC (3.8-10.6) k/uL RBC (4.30-5.90) m/uL Hgb (13.0-17.5) gm/dL Hct (39.0-53.0) % MCV (80.0-100.0) fL MCH (25.0-35.0) pg MCHC (31.0-37.0) g/dL RDW (11.5-15.5) % Plt Count (150-450) k/uL Neutrophils % % Lymphocytes % % Monocytes % % Eosinophils % % Basophils % % Neutrophils # (1.3-7.7) k/uL Lymphocytes # (1.0-4.8) k/uL Monocytes # (0-1.0) k/uL Eosinophils # (0-0.7) k/uL Basophils # (0-0.2) k/uL PT (9.0-12.0) sec INR (<1.2) APTT (22.0-30.0) sec Sodium (137-145) mmol/L Potassium (3.5-5.1) mmol/L Chloride (98-107) mmol/L Carbon Dioxide (22-30) mmol/L Anion Gap mmol/L BUN (9-20) mg/dL Creatinine (0.66-1.25) mg/dL Est GFR (CKD-EPI)AfAm (>60 ml/min/1.73 sqM) Est GFR (CKD-EPI)NonAf (>60 ml/min/1.73 sqM) Glucose (74-99) mg/dL Calcium (8.4-10.2) mg/dL Total Bilirubin (0.2-1.3) mg/dL AST (17-59) U/L ALT (4-49) U/L Alkaline Phosphatase (38-126) U/L Troponin I 0.059 H* (0.000-0.034) ng/mL Total Protein (6.3-8.2) g/dL Albumin (3.5-5.0) g/dL Urine Color Yellow Urine Appearance Clear (Clear) Urine pH 6.5 (5.0-8.0) Ur Specific [place] 1.010 (1.001-1.035) Urine Protein 3+ H (Negative) Urine Glucose (UA) Negative (Negative) Urine Ketones Negative (Negative) Urine Blood Trace H (Negative) Urine Nitrite Negative (Negative) Urine Bilirubin Negative (Negative) Urine Urobilinogen <2.0 (<2.0) mg/dL Ur Leukocyte Esterase Negative (Negative) Urine RBC 1 (0-5) /hpf Urine WBC 2 (0-5) /hpf Ur Squamous Epith Cells <1 (0-4) /hpf Hyaline Casts 3 H (0-2) /lpf Urine Mucus Rare H (None) /hpf Urine Opiates Screen Detected H (NotDetected) Ur Oxycodone Screen Not Detected (NotDetected) Urine Methadone Screen Not Detected (NotDetected) Ur Propoxyphene Screen Not Detected (NotDetected) Ur Barbiturates Screen Not Detected (NotDetected) U Tricyclic Antidepress Not Detected (NotDetected) Ur Phencyclidine Scrn Not Detected (NotDetected) Ur Amphetamines Screen Detected H (NotDetected) U Methamphetamines Scrn Detected H (NotDetected) U Benzodiazepines Scrn Not Detected (NotDetected) Urine Cocaine Screen Not Detected (NotDetected) U Marijuana (THC) Screen Not Detected (NotDetected) Critical Care Time Critical Care Time: Yes Total Critical Care Time: 30 Critical Care Time: Critical Care Time Critical care time was exclusive of separately billable procedures and treating other patients and teaching time. Critical care was necessary to treat or prevent imminent or life-threatening deterioration. Given the critical condition in which the patient arrived, the patient was immediately assessed by myself and the nurse, and cardiac monitoring initiated due to the potential for rapid decompensation of the patient's clinical condition. During the course of the patients stay, I spent a considerable amount of time at the bedside performing serial re-evaluations of the patient's hemodynamic and clinical status because of the recognized potential threat to life or limb in this condition. I then had a chance to review not only all of the available current laboratory and radiographic studies obtained today, but I also reviewed old records available to me at the time. Additionally, any ancillary information available including import dispatcher records were reviewed. Sequential vital signs were obtained. Disposition Clinical Impression: Hypertensive emergency, Opiate overdose, Intoxication by drug Disposition: ADMITTED IP TO THIS [facility] Condition: Serious Is patient prescribed a controlled substance at d/c from ED?: No Referrals: Emily Badillo MD [Primary Care Provider] - 1-2 days
[2020-05-22 01:34] LABS: Cocaine Screen,Urine Not Detected (NotDetected); Phencyclidine Screen,Urine Not Detected (NotDetected); Urn Cannabinoid Scrn Not Detected (NotDetected)
[2020-05-22 01:35] LABS: Amphetamine Screen,Urine Detected (NotDetected); Barbiturate Screen,Urine Not Detected (NotDetected); Benzodiazepines Screen,Urine Not Detected (NotDetected); Methadone Screen, Urine Not Detected (NotDetected); Opiate Screen,Urine Detected (NotDetected); Oxycodone Screen, Urine Not Detected (NotDetected); Tricyclic Antidepressant,Urine Not Detected (NotDetected)
[2020-05-22] MEDS ORDERED: LABETALOL 5 MG/ML VIAL MDV IVP STA (01:43)
[2020-05-22] MEDS ORDERED: NALOXONE 0.4 MG/ML 1 ML VIAL IV PRN (01:49)
[2020-05-22] MEDS ORDERED: MORPHINE SULFATE 4 MG/ML SYRINGE IV PRN (01:49)
[2020-05-22] MEDS ORDERED: IBUPROFEN 400 MG TAB PO PRN (01:49)
[2020-05-22] MEDS ORDERED: 0.9% NACL WITH KCL 20 MEQ/L 1,000 ML IV SCH (02:00)
[2020-05-22] MEDS ORDERED: LABETALOL 200 MG in SODIUM CHLORIDE 0.9% 160 ML IV ONE (02:07)
[2020-05-22] MEDS ORDERED: Potassium Replacement Protocol 1 EACH MISC MISCELLANE PRN (03:50)
[2020-05-22] MEDS: POTASSIUM CHLORIDE ER 20 MEQ TAB.ER PO SCH ×2 (04:23→05:30)
[2020-05-22 04:46] LABS: Glucose,Whole Blood 116 mg/dL (75-99)
[2020-05-22] MEDS ORDERED: LISINOPRIL 2.5 MG TAB PO SCH (09:00)
[2020-05-22] MEDS ORDERED: amLODIPine 5 MG TAB PO SCH (09:00)
[2020-05-22] MEDS ORDERED: hydrOXYzine HCL 25 MG TAB PO PRN (10:03)
[2020-05-22] MEDS ORDERED: ACETAMINOPHEN TAB 325 MG TAB PO PRN (10:03)
[2020-05-22] MEDS ORDERED: ONDANSETRON 4 MG/2 ML VIAL IVP PRN (10:05)
--- NOTE | 2020-05-22 10:14 | P.CRDCN ---
History of Present Illness Consult date: 05/22/20 History of present illness: This is a 35-year-old gentleman who is admitted to the emergency room because of altered mental status and possible drug overdose. Patient also has history of hypertension and was not taking his medications. His blood pressure was very high in the emergency room and required treatment with IV labetalol and also clonidine. His troponin was mildly elevated. Patient is admitted here for further evaluation. His blood pressures improved. He is initiated on amlodipine and lisinopril combination. He denied any chest pain. Patient is still sleepy but arousable. He was taking heroin. Has history of superficial abscess and infections requiring surgery for scrotal abscess in the past. His troponin was mildly elevated but the trend is not consistent with acute myocardial injury pattern. We will get an echocardiogram to assess LV function and rule out any segmental wall motion defects. His blood pressure symptomatically better controlled. If echo is normal and blood pressure is controlled, from Cardec standpoint, no further workup. When his mental status is stable he could be discharged home. Could be considered for a stress test as an outpatient Review of Systems As per the chart Past Medical History Past Medical History: Hypertension Additional Past Medical History / Comment(s): hx migraines, wound on testicle, History of Any Multi-Drug Resistant Organisms: None Reported Additional Past Surgical History / Comment(s): fx Tibia and fibula, I&D testicle, Past Anesthesia/Blood Transfusion Reactions: No Reported Reaction Past Psychological History: Depression Smoking Status: Current every day smoker Past Alcohol Use History: Daily, Heavy Past Drug Use History: Heroin, Marijuana - Past Family History Mother Family Medical History: Cancer Additional Family Medical History / Comment(s): cervical cancer Father Family Medical History: Cancer Additional Family Medical History / Comment(s): Father in 1997 from lung and liver cancer Medications and Allergies Home Medications Medication Instructions Recorded Confirmed Type No Known Home Medications 05/22/20 05/22/20 History Allergies Allergy/AdvReac Type Severity Reaction Status Date / Time No Known Allergies Allergy Verified 05/22/20 08:35 Physical Exam Vitals: Vital Signs Temp Pulse Resp BP Pulse Ox 05/22/20 09:00 97.7 F 60 11 L 140/91 97 05/22/20 08:00 63 11 L 147/98 97 05/22/20 07:00 66 12 142/95 96 05/22/20 06:00 68 12 150/100 97 05/22/20 05:00 97.7 F 69 13 150/99 98 05/22/20 04:15 98.9 F 69 16 152/102 96 05/22/20 03:45 72 16 158/107 96 05/22/20 03:30 77 16 165/110 96 05/22/20 03:15 73 15 169/110 97 05/22/20 03:00 73 16 181/113 97 05/22/20 02:45 75 14 185/120 98 05/22/20 02:00 81 18 201/127 97 05/22/20 01:42 116 H 18 242/161 98 05/22/20 01:30 92 14 224/148 98 05/22/20 01:00 111 H 16 232/149 96 05/22/20 00:41 13 05/22/20 00:26 98.4 F 113 H 16 238/148 97 Intake and Output 05/21/20 05/22/20 05/22/20 22:59 06:59 14:59 Intake Total 100 230 Balance 100 230 Intake: IV 180 0.9% NaCl with KCl 20 Meq 100 /l 1,000 ml @ 50 mls/hr IV .Q20H [facility] Rx#: [id number] Sodium Chloride 0.9% 1, 80 000 ml @ 130 mls/hr IV . Q7H42M [facility] Rx#:[id number] Intake, IV Titration 100 50 Amount 0.9% NaCl with KCl 20 Meq 100 50 /l 1,000 ml @ 50 mls/hr IV .Q20H [facility] Rx#: [id number] Other: Weight 72.575 kg GENERAL EXAM: Patient is lethargic and sleepy acceptance HEENT: Normocephalic. Normal reaction of pupils, equal size, normal range of extraocular motion. No erythema or exudates in the throat. NECK: No masses, no nuchal rigidity. CHEST: No chest wall deformity. LUNGS: Equal air entry with no crackles or wheeze. HEART: S1 and S2 normal with no audible mumurs or gallops. Regular rhythm, femorals equal on both sides.. ABDOMEN: No hepatosplenomegaly, normal bowel sounds, no guarding or rigidity. SKIN: No rashes CENTRAL NERVOUS SYSTEM: No focal deficits. EXTREMITIES: No cyanosis, clubbing or edema. Results 05/22/20 00:44 05/22/20 00:44 Cardiac Enzymes 05/22/20 05/22/20 05/22/20 Range/Units 00:44 00:44 03:50 AST 138 H (17-59) U/L Troponin I 0.059 H* 0.060 H* (0.000-0.034) ng/mL 05/22/20 Range/Units 04:46 AST (17-59) U/L Troponin I 0.059 H* (0.000-0.034) ng/mL Coagulation 05/22/20 Range/Units 00:44 PT 9.4 (9.0-12.0) sec APTT 23.2 (22.0-30.0) sec CBC 05/22/20 Range/Units 00:44 WBC 14.6 H (3.8-10.6) k/uL RBC 4.61 (4.30-5.90) m/uL Hgb 15.1 (13.0-17.5) gm/dL Hct 43.7 (39.0-53.0) % Plt Count 303 (150-450) k/uL Comprehensive Metabolic Panel 05/22/20 Range/Units 00:44 Sodium 131 L (137-145) mmol/L Potassium 3.3 L (3.5-5.1) mmol/L Chloride 93 L (98-107) mmol/L Carbon Dioxide 29 (22-30) mmol/L BUN 18 (9-20) mg/dL Creatinine 1.08 (0.66-1.25) mg/dL Glucose 124 H (74-99) mg/dL Calcium 8.9 (8.4-10.2) mg/dL AST 138 H (17-59) U/L ALT 99 H (4-49) U/L Alkaline Phosphatase 131 H (38-126) U/L Total Protein 7.5 (6.3-8.2) g/dL Albumin 3.7 (3.5-5.0) g/dL Current Medications Generic Name Dose Route Start Last Admin Trade Name Freq PRN Reason Stop Dose Admin Acetaminophen 325 mg 05/22/20 10:03 Tylenol Tab PO Q6HR PRN Fever and/ or Pain Amlodipine Besylate 5 mg 05/22/20 09:00 Norvasc PO DAILY [facility] Famotidine 20 mg 05/22/20 21:00 Pepcid IV Q12HR [facility] Heparin Sodium (Porcine) 5,000 unit 05/22/20 21:00 Heparin SQ Q12HR [facility] Hydroxyzine HCl 25 mg 05/22/20 10:03 Atarax PO QID PRN Itching Sodium Chloride 1,000 mls @ 130 mls/hr 05/22/20 00:45 05/22/20 08:21 Saline 0.9% IV 130 mls/hr .Q7H42M [facility] Administration Potassium Chloride/Sodium Chloride 1,000 mls @ 50 mls/hr 05/22/20 02:00 05/22/20 02:45 Ns-Kcl 20 Meq/L Iv Solution IV 50 mls/hr .Q20H [facility] Administration Ibuprofen 400 mg 05/22/20 01:49 Motrin PO Q6HR PRN Mild Pain or Fever > 100.5 Lisinopril 5 mg 05/22/20 09:00 Zestril PO BID [facility] Miscellaneous Information 1 each 05/22/20 03:50 Potassium Per Protocol MISCELLANE DAILY PRN Per Protocol Protocol Morphine Sulfate 4 mg 05/22/20 01:49 Morphine Sulfate (Inj) IV Q4HR PRN Severe Pain Naloxone HCl 0.2 mg 05/22/20 01:49 Narcan IV Q2M PRN Opioid Reversal Ondansetron HCl 4 mg 05/22/20 10:05 Zofran IVP Q6HR PRN Nausea And Vomiting Trazodone HCl 50 mg 05/22/20 21:00 Desyrel PO HS PRN Insomnia Intake and Output 05/21/20 05/22/20 05/22/20 22:59 06:59 14:59 Intake Total 100 230 Balance 100 230 Intake: IV 180 0.9% NaCl with KCl 20 Meq 100 /l 1,000 ml @ 50 mls/hr IV .Q20H [facility] Rx#: [id number] Sodium Chloride 0.9% 1, 80 000 ml @ 130 mls/hr IV . Q7H42M [facility] Rx#:[id number] Intake, IV Titration 100 50 Amount 0.9% NaCl with KCl 20 Meq 100 50 /l 1,000 ml @ 50 mls/hr IV .Q20H [facility] Rx#: [id number] Other: Weight 72.575 kg 05/22/20 00:44 05/22/20 00:44 EKG Interpretations (text) Sinus rhythm and sinus tachycardia Assessment and Plan (1) Hypertensive emergency Current Visit: Yes Status: Acute Code(s): I16.1 - HYPERTENSIVE EMERGENCY SNOMED Code(s): 536492659859122 (2) Intoxication by drug Current Visit: Yes Status: Acute Code(s): F19.929 - OTH PSYCHOACTIVE SUBSTANCE USE, UNSP WITH INTOXICATION, UNSP SNOMED Code(s): 6332875 (3) Elevated troponin Current Visit: Yes Status: Acute Code(s): R79.89 - OTHER SPECIFIED ABNORMAL FINDINGS OF BLOOD CHEMISTRY SNOMED Code(s): 636023610 Plan: Continue current medical therapy. Echocardiogram. If the blood pressures controlled and if echo is normal, no further cardiac evaluation the time. Outpatient stress test should be considered.
--- NOTE | 2020-05-22 10:30 | P.HPIM ---
History of Present Illness This is a pleasant 35 years old male with past medical history of hypertension, migraines, depression and cigarette smoker, heavy alcohol drinking and marijuana abuse. Patient could not provide information this morning so it was obtained from staff and medical records He was up for about last night because family member found him snoring with his respiration and is concerned they might have overdose with heroine. Patient admits using IV heroin last night and denies attempts to overdose or so site as per documentation On admission his blood pressure was significantly elevated to 38/148 and 232/149. He got 1 dose of naloxone in the emergency room and blood pressure medication and his blood pressure currently 139/95 and his breathing rate at 10- 11/m, heart rate 60, he is afebrile. Saturating 97% on room air. That showing WBC of 14.6 K, sodium 131, potassium 3.3, creatinine is normal. Troponin is elevated 0.05 and 0.06 and 0.05. Urinalysis no suspicious for infection. Urine drug screen is positive for opiates, amphetamines and methamphetamines In the emergency room and received naloxone, clonidine, hydralazine and labetalol. Review of Systems Patient is asleep. Could not provide information Past Medical History Past Medical History: Hypertension Additional Past Medical History / Comment(s): hx migraines, wound on testicle, History of Any Multi-Drug Resistant Organisms: None Reported Additional Past Surgical History / Comment(s): fx Tibia and fibula, I&D tim ticle, Past Anesthesia/Blood Transfusion Reactions: No Reported Reaction Past Psychological History: Depression Smoking Status: Current every day smoker Past Alcohol Use History: Daily, Heavy Past Drug Use History: Heroin, Marijuana - Past Family History Mother Family Medical History: Cancer Additional Family Medical History / Comment(s): cervical cancer Father Family Medical History: Cancer Additional Family Medical History / Comment(s): Father in 1997 from lung and liver cancer Medications and Allergies Home Medications Medication Instructions Recorded Confirmed Type No Known Home Medications 05/22/20 05/22/20 History Allergies Allergy/AdvReac Type Severity Reaction Status Date / Time No Known Allergies Allergy Verified 05/22/20 08:35 Physical Exam Vitals: Vital Signs Temp Pulse Resp BP Pulse Ox 05/22/20 10:00 60 10 L 139/95 97 05/22/20 09:00 97.7 F 60 11 L 140/91 97 05/22/20 08:00 63 11 L 147/98 97 05/22/20 07:00 66 12 142/95 96 05/22/20 06:00 68 12 150/100 97 05/22/20 05:00 97.7 F 69 13 150/99 98 05/22/20 04:15 98.9 F 69 16 152/102 96 05/22/20 03:45 72 16 158/107 96 05/22/20 03:30 77 16 165/110 96 05/22/20 03:15 73 15 169/110 97 05/22/20 03:00 73 16 181/113 97 05/22/20 02:45 75 14 185/120 98 05/22/20 02:00 81 18 201/127 97 05/22/20 01:42 116 H 18 242/161 98 05/22/20 01:30 92 14 224/148 98 05/22/20 01:00 111 H 16 232/149 96 05/22/20 00:41 13 05/22/20 00:26 98.4 F 113 H 16 238/148 97 Intake and Output 05/21/20 05/22/20 05/22/20 22:59 06:59 14:59 Intake Total 100 410 Balance 100 410 Intake: IV 360 0.9% NaCl with KCl 20 Meq 150 /l 1,000 ml @ 50 mls/hr IV .Q20H [facility] Rx#: [id number] Sodium Chloride 0.9% 1, 210 000 ml @ 130 mls/hr IV . Q7H42M [facility] Rx#:[id number] Intake, IV Titration 100 50 Amount 0.9% NaCl with KCl 20 Meq 100 50 /l 1,000 ml @ 50 mls/hr IV .Q20H [facility] Rx#: [id number] Other: Weight 72.575 kg -GENERAL: The patient is sleepy is oriented to place only but because back to sleep right away, not in any acute distress. HEENT: Pupils are round and equally reacting to light. EOMI. No scleral icterus. No conjunctival pallor. Normocephalic, atraumatic. No pharyngeal erythema. No thyromegaly. CARDIOVASCULAR: S1 and S2 present. No murmurs, rubs, or gallops. PULMONARY: Chest is clear to auscultation, no wheezing or crackles. ABDOMEN: Soft, nontender, nondistended, normoactive bowel sounds. No palpable organomegaly. MUSCULOSKELETAL: No joint swelling or deformity. EXTREMITIES: No cyanosis, clubbing, or pedal edema. NEUROLOGICAL: Gross neurological examination did not reveal any focal deficits. SKIN: No rashes. no petechiae. Results CBC & Chem 7: 05/22/20 00:44 05/22/20 00:44 Labs: Abnormal Lab Results - Last 24 Hours (Table) 05/22/20 05/22/20 05/22/20 Range/Units 00:44 00:44 00:44 WBC 14.6 H (3.8-10.6) k/uL Neutrophils # 10.6 H (1.3-7.7) k/uL Monocytes # 1.2 H (0-1.0) k/uL Sodium 131 L (137-145) mmol/L Potassium 3.3 L (3.5-5.1) mmol/L Chloride 93 L (98-107) mmol/L Glucose 124 H (74-99) mg/dL POC Glucose (mg/dL) (75-99) mg/dL AST 138 H (17-59) U/L ALT 99 H (4-49) U/L Alkaline Phosphatase 131 H (38-126) U/L Troponin I 0.059 H* (0.000-0.034) ng/mL Urine Protein (Negative) Urine Blood (Negative) Hyaline Casts (0-2) /lpf Urine Mucus (None) /hpf Urine Opiates Screen (NotDetected) Ur Amphetamines Screen (NotDetected) U Methamphetamines Scrn (NotDetected) 05/22/20 05/22/20 05/22/20 Range/Units 01:17 03:50 04:44 WBC (3.8-10.6) k/uL Neutrophils # (1.3-7.7) k/uL Monocytes # (0-1.0) k/uL Sodium (137-145) mmol/L Potassium (3.5-5.1) mmol/L Chloride (98-107) mmol/L Glucose (74-99) mg/dL POC Glucose (mg/dL) 116 H (75-99) mg/dL AST (17-59) U/L ALT (4-49) U/L Alkaline Phosphatase (38-126) U/L Troponin I 0.060 H* (0.000-0.034) ng/mL Urine Protein 3+ H (Negative) Urine Blood Trace H (Negative) Hyaline Casts 3 H (0-2) /lpf Urine Mucus Rare H (None) /hpf Urine Opiates Screen Detected H (NotDetected) Ur Amphetamines Screen Detected H (NotDetected) U Methamphetamines Scrn Detected H (NotDetected) 05/22/20 Range/Units 04:46 WBC (3.8-10.6) k/uL Neutrophils # (1.3-7.7) k/uL Monocytes # (0-1.0) k/uL Sodium (137-145) mmol/L Potassium (3.5-5.1) mmol/L Chloride (98-107) mmol/L Glucose (74-99) mg/dL POC Glucose (mg/dL) (75-99) mg/dL AST (17-59) U/L ALT (4-49) U/L Alkaline Phosphatase (38-126) U/L Troponin I 0.059 H* (0.000-0.034) ng/mL Urine Protein (Negative) Urine Blood (Negative) Hyaline Casts (0-2) /lpf Urine Mucus (None) /hpf Urine Opiates Screen (NotDetected) Ur Amphetamines Screen (NotDetected) U Methamphetamines Scrn (NotDetected) Thrombosis Risk Factor Assmnt - Choose All That Apply Any of the Below Risk Factors Present?: No Other Risk Factors: No Other congenital or acquired thrombophilia - If yes, enter type in comment: No Thrombosis Risk Factor Assessment Level: Very Low Risk Assessment and Plan Assessment: Hypertensive urgency Substance abuse. Drug overdose with IV heroin, Other substance abuse including amphetamine and methamphetamine Toxic encephalopathy secondary to above, versus others Depression Nicotine dependence Possible alcohol abuse Hypertension History of migraine Plan: This is a pleasant 35 years old male who presents with hypertensive urgency and heroin use. We'll do CT of the brain to rule out intracranial lesion. Also ask for sac consult for depression and substance abuse. Cardiology evaluated the patient and adjusted some of his blood pressure medication. Continue with antihypertensive. Treat her when symptomatically with Imodium, Zofran, Pepcid, Atarax and trazodone as needed. Echocardiogram recommended by washhouse worker and outpatient stress test to be considered. Also pulmonary/critical care consult Also do chest x-ray. Order a CBC and pro calcitonin . Continue with IV fluids Labs and medication were reviewed.. Continue same treatment. Continue with symptomatic treatment. Resume home medication. Monitor lytes and vitals. DVT and GI prophylaxis. Further recommendations of the clinical course of the patient DVT prophylaxis: Hold Subcutaneous heparin GI Prophylaxis: Pepcid Prognosis is guarded
--- NOTE | 2020-05-22 10:52 | XR ---
EXAMINATION TYPE: XR chest 1V DATE OF EXAM: 05/22/2020 COMPARISON: 11/26/2019 INDICATION: Leukocytosis TECHNIQUE: Single frontal view of the chest is obtained. FINDINGS: The heart size is normal. The pulmonary vasculature is normal. The lungs are clear. IMPRESSION: 1. No acute pulmonary process.
--- NOTE | 2020-05-22 11:24 | CT ---
EXAMINATION TYPE: CT brain wo con DATE OF EXAM: 05/22/2020 COMPARISON: 08/25/2012 INDICATION: Mental status changes. DLP: 1188.4 mGycm, Automated exposure control for dose reduction was used. CONTRAST: None CT of the brain is performed utilizing 3 mm thick sections through the posterior fossa and 3 mm thick sections through the remaining calvarium. Study is performed within 24 hours of arrival to the hosp ital. No abnormal hyperdensity is present to suggest an acute intracranial hemorrhage. Brainstem appears hypodense. Quadrigeminal plate and ambient cistern appear diminished. Fourth ventri spencer is normal and midline. Underlying brainstem mass should be considered. Additional workup with MRI with contrast is recommended. Evaluation of this area is somewhat limited due to the skull base at t his level. No acute infarcts are evident. Ventricles and sulci are appropriate for the patient age. No temporal horn dilatation is evident. La teral ventricles and third ventricle appear normal. Paranasal sinuses and mastoid air cells within the [id number] are clear. IMPRESSIONS: 1. There appears to be some fullness of the brainstem which could indicate an underlying mass. Cont rast MRI is recommended for additional evaluation. A Dickenson level critical message alert has been initiated for [facility] via the [employer] System on 05/22/2020 11:20 AM. This message alert has been sent to [facility] via the preferences provided by the clinician for the receipt of Radiology Critical Findings. Message ID [id number].
[2020-05-22 11:32] LABS: Basophils # (A) 0.1 k/uL (0-0.2); Basophils % (A) 1 %; Eosinophils # (A) 0.2 k/uL (0-0.7); Eosinophils % (A) 2 %; HCT 42.6 % (39.0-53.0); Lymphocytes # (A) 1.2 k/uL (1.0-4.8); Lymphocytes % (A) 12 %; MCH 31.1 pg (25.0-35.0); MCHC 32.8 g/dL (31.0-37.0); MCV 94.9 fL (80.0-100.0); Mean Platelet Volume 7.6; Monocytes # (A) 0.4 k/uL (0-1.0); Monocytes % (A) 4 %; Neutrophils # (A) 7.7 k/uL (1.3-7.7); Neutrophils % (A) 80 %; Platelet Count 224 k/uL (150-450); RBC 4.49 m/uL (4.30-5.90); RDW 12.8 % (11.5-15.5); WBC 9.7 k/uL (3.8-10.6)
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
[2020-05-22 13:57] VITALS: BP 156/83; PULSE 68; RESP 18; TEMP 98.4
[2020-05-22] MEDS ORDERED: cloNIDine HCL 0.1 MG TAB PO PRN (13:58)
--- NOTE | 2020-05-22 14:06 | P.CN ---
Psychiatric Consult - . Consult date: 05/22/20 Consult:: 05/22/20 13:59 IDENTIFYING DATA: This patient is a 35-year-old male history of IV heroin use who currently lives with his uncle and house has 6 kids on 3 different mothers and is single and collects Social Security. HISTORY OF PRESENT ILLNESS: The patient presented to the hospital yesterday after a possible overdose on heroin. Patient's family found him overdosed on the floor in the house. Patient adamantly denied any suicidal ideations or suicide attempt. Patient was given naloxone in the ER and was found to have elevated troponins and had hypertension as emergency and was admitted to the ICU. Patient's UDS was positive for methamphetamines and opiates. Psychiatry is consulted for overdose and depression. Patient was seen at the bedside with his uncle and was agreeable to speak to director underwriter sales. Patient was irritable at times and states that he is going through some withdrawals however has been finding it helpful that he is on morphine at this time. He denied any other withdrawal symptoms except for irritability denied any piloerection diaphoresis and diarrhea. He claims that he was used to doing approximately $100-$300 a day of heroin however states that he cut back significantly and then relapsed once again doing a significant amount and claims that he "overdid it" and states that he overdosed. He claims that his sleep is fine and his mood is okay at this time. He admits to some irritability. He claims that he wants to go home and go to rehab as he believes his substance use is a problem.. At this time patient denies any suicidal or homical ideations, intent or plan. Patient denies any auditory, visual hallucinations and denies any paranoia or delusions. Patients admits to using heroin has mentioned above intravenous use. He also admits to using cigarettes daily and marijuana daily. PAST PSYCHIATRIC HISTORY: Patient has a a history of polysubstance abuse and depression. Patient denies being on any psychiatric medications. Patient denies any previous psychiatric hospitalizations. Patient denies any psychiatric outpatient follow-up. Patient denies any history of suicide attempts in the past. PAST MEDICAL HISTORY: GERD, hypertension, hepatitis C. ALLERGIES: as per EMR. CHEMICAL DEPENDENCY HISTORY: as per HPI. FAMILY PSYCHIATRIC/SUBSTANCE USE HISTORY: denies SOCIAL HISTORY: Patient was born and raised in [facility] and claims that he completed up to 11th grade. He states that he was previously in [facility] several times for parole violation. He currently lives with his uncle in a house has 6 kids and by 3 different mothers and is single collects Social Security. MENTAL STATUS EXAM: General Appearance: Patient appears to be stated age is alert, attempts to cooperate however is irritable. Patient appears to have poor hygiene and grooming wearing hospital gown with fair eye contact. Behavior: Patient is calmly lying in bed without any agitated behavior. Restless in bed at times. Speech: Patient's speech is fluent and nonpressured. Mood/Affect: Patient reports their mood is "ok", affect is congruent irritable at times. Suicidality/Homicidality: Patient denies having any suicidal or homicidal ideation intent or plan. Perceptions: Patient denies any visual hallucinations and denies any auditory hallucinations Though content/process: There is no evidence of any delusional thought content and thought process is linear and goal-directed. Focused on discharge and going to rehab. Memory and concentration: AOX3, grossly intact for the purposes of this session. Can spell "WORLD" backwards Judgment and insight: Limited IMPRESSIONS: Opiate use disorder, severe, currently withdrawal Methamphetamine abuse Nicotine dependence Cannabis use disorder PLAN: -At this time patient DOES NOT meet criteria for inpatient psychiatric admission. -Would recommend the following medication changes/additions: Continue with trazodone when necessary for insomnia, added clonidine 0.1 mg every 8 hours when necessary for opiate withdrawal systolic blood pressure less than 110. -lime kiln worker helper to assist patient with possibly getting set up with either [facility] or another outpatient rehab program specifically to set patient up with a provider who can help patient with medication assisted treatment for his opiate use disorder. -Psychiatry will sign off at this point, please contact with any questions.
[2020-05-22] MEDS ORDERED: FAMOTIDINE 20 MG/2 ML VIAL IV SCH (21:00)
[2020-05-22] MEDS ORDERED: traZODone HCL 50 MG TAB PO PRN (21:00)
[2020-05-22] MEDS ORDERED: HEPARIN SODIUM,PORCINE 5,000 UNIT/ML 1 ML VIAL SQ SCH (21:00)
[2020-05-22] MEDS ORDERED: FAMOTIDINE 20 MG TAB PO SCH (21:00)
--- NOTE | 2020-05-26 16:01 | ECHOF ---
Referral Reason:Chest pain and cardiomyopathy MEASUREMENTS -------- HEIGHT: 172.7 cm WEIGHT: 72.6 kg BP: RVIDd: 3.6 cm (< 3.3) IVSd: 2.0 cm (0.6 - 1.1) LVIDd: 4.1 cm (3.9 - 5.3) LVPWd: 1.9 cm (0.6 - 1.1) IVSs: 2.2 cm LVIDs: 3.3 cm LVPWs: 2.1 cm LA Diam: 4.4 cm (2.7 - 3.8) LAESV Index (A-L): 29.60 ml/m Ao Diam: 2.9 cm (2.0 - 3.7) AV Cusp: 1.9 cm (1.5 - 2.6) LA Diam: 3.6 cm (2.7 - 3.8) MV EXCURSION: 20.477 mm (> 18.000) MV EF SLOPE: 55 mm/s (70 - 150) EPSS: 0.5 cm MV E Charly: 0.77 m/s MV DecT: 229 ms MV A Charly: 0.73 m/s MV E/A Ratio: 1.06 RAP: 5.00 mmHg RVSP: 17.86 mmHg FINDINGS -------- Sinus rhythm. This was a technically good study. There is severe concentric left ventricular hypertrophy. Overall left ventricular systolic function is normal with, an EF between 55 - 60 %. The right ventricle is normal in size. The left atrium is mildly dilated. LA is midly dilated 29-33ml/m2. The right atrial size is normal. There is mild aortic valve sclerosis. There is no evidence of aortic regurgitation. Mild mitral annular calcification present. Mild mitral regurgitation is present. Mild tricuspid regurgitation present. Right ventricular systolic pressure is normal at < 35 mmHg. There is no pulmonic regurgitation present. The aortic root size is normal. There is no pericardial effusion. CONCLUSIONS -------- 1. Sinus rhythm. 2. This was a technically good study. 3. There is severe concentric left ventricular hypertrophy. 4. Overall left ventricular systolic function is normal with, an EF between 55 - 60 %. 5. The right ventricle is normal in size. 6. The left atrium is mildly dilated. 7. LA is midly dilated 29-33ml/m2. 8. The right atrial size is normal. 9. There is mild aortic valve sclerosis. 10. Mild mitral annular calcification present. 11. Mild mitral regurgitation is present. 12. Mild tricuspid regurgitation present. 13. Right ventricular systolic pressure is normal at < 35 mmHg. 14. There is no pulmonic regurgitation present. 15. The aortic root size is normal. 16. There is no pericardial effusion. POULTRY PROCESSOR: Areli Cm RDCS
== END 2020-05-22 15:10 | disposition left against medical advice (07) | DRG 917 ==
LOC: EC 00:26 → 2SICU 02:08 → 3SCARD 11:43
PROVIDERS: ADMIT Hospitalist; ATTEND Hospitalist
DX: T40.1X1A Poisoning by heroin, accidental (unintentional), initial encounter (principal); G92 Toxic encephalopathy; I16.1 Hypertensive emergency; F11.23 Opioid dependence with withdrawal; I10 Essential (primary) hypertension; K21.9 Gastro-esophageal reflux disease without esophagitis; G43.909 Migraine, unspecified, not intractable, without status migrainosus; F17.200 Nicotine dependence, unspecified, uncomplicated; R79.89 Other specified abnormal findings of blood chemistry; F32.9 Major depressive disorder, single episode, unspecified; E87.6 Hypokalemia; Z11.59 Encounter for screening for other viral diseases; Z91.14 Patient's other noncompliance with medication regimen; Z80.0 Family history of malignant neoplasm of digestive organs; Z79.899 Other long term (current) drug therapy; Z80.8 Family history of malignant neoplasm of other organs or systems; Z80.1 Family history of malignant neoplasm of trachea, bronchus and lung
CPT/HCPCS: 36415; 70450; 71045; 80053; 80306; 81001; 84132; 84484; 85025; 85610; 85730; 93306; 96361; 96365; 96366; 96375; 99291

== ENCOUNTER 2020-07-20 12:20 | Emergency (ER) | payer OTHER ==
[2020-07-20 12:38] VITALS: TEMP 97.9
[2020-07-20] MEDS ORDERED: cloNIDine 0.3 MG/24HR PATCH TRANSDERM STA (12:47)
[2020-07-20] MEDS ORDERED: SODIUM CHLORIDE 0.9% 1,000 ML IV STA (12:47)
[2020-07-20] MEDS ORDERED: LABETALOL SYRINGE 5 MG/ML IVP STA (12:47)
--- NOTE | 2020-07-20 12:48 | ED ---
Recheck HPI - General Chief Complaint: Recheck/Abnormal Lab/Rx Stated Complaint: High BP Time Seen by Provider: 07/20/20 12:23 Source: patient, EMS, RN notes reviewed, old records reviewed Mode of arrival: EMS Limitations: no limitations - History of Present Illness Initial Comments: This is a 25-year-old male DF for evaluation severely elevated blood pressure [facility] patient has elevated blood pressure does not take any medication for his blood pressure. Patient denies any complaints of chest pain headache or shortness of breath MD Complaint: other (elev BP) Returns Today for: persistent/worsening pain related to initial visit Symptoms Since Prior Visit: no new symptoms Context: planned re-check Associated Symptoms: none Treatments Prior to Arrival: Given Pain Meds on - Related Data Previous Rx's Medication Instructions Recorded Lisinopril-Hctz 20-25 mg 1 tab PO DAILY #60 tab 07/20/20 [Zestoretic 20-25] cloNIDine HCL [Catapres] 0.3 mg PO BID #60 tab 07/20/20 Allergies Allergy/AdvReac Type Severity Reaction Status Date / Time No Known Allergies Allergy Verified 07/20/20 12:39 Review of Systems ROS Statement: Those systems with pertinent positive or pertinent negative responses have been documented in the HPI. ROS Other: All systems not noted in ROS Statement are negative. Past Medical History Past Medical History: Hypertension Additional Past Medical History / Comment(s): hx migraines History of Any Multi-Drug Resistant Organisms: None Reported Additional Past Surgical History / Comment(s): fx Tibia and fibula, I&D testicle, Past Anesthesia/Blood Transfusion Reactions: No Reported Reaction Past Psychological History: Depression Smoking Status: Current every day smoker Past Alcohol Use History: Daily, Heavy Past Drug Use History: Heroin, Marijuana - Past Family History Mother Family Medical History: Cancer Additional Family Medical History / Comment(s): cervical cancer Father Family Medical History: Cancer Additional Family Medical History / Comment(s): Father in 1997 from lung and liver cancer General Exam Limitations: no limitations General appearance: alert, in no apparent distress Head exam: Present: atraumatic, normocephalic, normal inspection Eye exam: Present: normal appearance, PERRL, EOMI. Absent: scleral icterus, conjunctival injection, periorbital swelling ENT exam: Present: normal exam, mucous membranes moist Neck exam: Present: normal inspection. Absent: tenderness, meningismus, lymphadenopathy Respiratory exam: Present: normal lung sounds bilaterally. Absent: respiratory distress, wheezes, rales, rhonchi, stridor Cardiovascular Exam: Present: regular rate, normal rhythm, normal heart sounds. Absent: systolic murmur, diastolic murmur, rubs, gallop, clicks GI/Abdominal exam: Present: soft, normal bowel sounds. Absent: distended, tenderness, guarding, rebound, rigid Extremities exam: Present: normal inspection, full ROM, normal capillary refill. Absent: tenderness, pedal edema, joint swelling, calf tenderness Back exam: Present: normal inspection Neurological exam: Present: alert, oriented X3, CN II-XII intact Psychiatric exam: Present: normal affect, normal mood Skin exam: Present: warm, dry, intact, normal color. Absent: rash Course Vital Signs 07/20/20 07/20/20 07/20/20 12:33 13:18 14:00 Temperature 97.9 F Pulse Rate 94 96 97 Respiratory 12 16 12 Rate Blood Pressure 216/156 220/153 202/140 O2 Sat by Pulse 100 98 98 Oximetry 07/20/20 07/20/20 07/20/20 14:38 15:41 16:02 Temperature Pulse Rate 99 89 93 Respiratory 20 12 12 Rate Blood Pressure 202/149 206/145 190/135 O2 Sat by Pulse 99 100 93 L Oximetry - Reevaluation(s) Reevaluation #1: Medical record is reviewed Symptoms significantly improved here in the ER Patient reassessed, questions answered Patient is okay for discharge home Medical Decision Making - Medical Decision Making 35 male DF for evaluation of severely elevated blood pressure. Blood pressures controlled here in the ER patient prescribed medication and can be discharged home - Lab Data Result diagrams: 07/20/20 13:20 07/20/20 13:20 Lab Results 07/20/20 07/20/20 07/20/20 Range/Units 13:20 13:20 13:20 WBC 12.8 H (3.8-10.6) k/uL RBC 5.29 (4.30-5.90) m/uL Hgb 16.9 (13.0-17.5) gm/dL Hct 50.7 (39.0-53.0) % MCV 95.7 (80.0-100.0) fL MCH 32.0 (25.0-35.0) pg MCHC 33.4 (31.0-37.0) g/dL RDW 13.6 (11.5-15.5) % Plt Count 258 (150-450) k/uL Neutrophils % 81 % Lymphocytes % 11 % Monocytes % 5 % Eosinophils % 1 % Basophils % 1 % Neutrophils # 10.3 H (1.3-7.7) k/uL Lymphocytes # 1.4 (1.0-4.8) k/uL Monocytes # 0.6 (0-1.0) k/uL Eosinophils # 0.1 (0-0.7) k/uL Basophils # 0.1 (0-0.2) k/uL Sodium 130 L (137-145) mmol/L Potassium 4.0 (3.5-5.1) mmol/L Chloride 97 L (98-107) mmol/L Carbon Dioxide 26 (22-30) mmol/L Anion Gap 7 mmol/L BUN 21 H (9-20) mg/dL Creatinine 0.84 (0.66-1.25) mg/dL Est GFR (CKD-EPI)AfAm >90 (>60 ml/min/1.73 sqM) Est GFR (CKD-EPI)NonAf >90 (>60 ml/min/1.73 sqM) Glucose 125 H (74-99) mg/dL Calcium 8.8 (8.4-10.2) mg/dL Phosphorus 4.6 H (2.5-4.5) mg/dL Magnesium 2.0 (1.6-2.3) mg/dL Total Bilirubin 0.8 (0.2-1.3) mg/dL AST 87 H (17-59) U/L ALT 86 H (4-49) U/L Alkaline Phosphatase 98 (38-126) U/L Creatine Kinase 67 (55-170) U/L Troponin I 0.052 H* (0.000-0.034) ng/mL Total Protein 7.3 (6.3-8.2) g/dL Albumin 3.7 (3.5-5.0) g/dL - EKG Data -: EKG Interpreted by Me (EKG is sinus rhythm of 92 ME 114 QRS 98 QTc 507) Disposition Clinical Impression: Hypertension Disposition: HOME SELF-CARE Condition: Good Instructions (If sedation given, give patient instructions): Hypertension (ED) Prescriptions: cloNIDine HCL [Catapres] 0.3 mg PO BID #60 tab Lisinopril-Hctz 20-25 mg [Zestoretic 20-25] 1 tab PO DAILY #60 tab Is patient prescribed a controlled substance at d/c from ED?: No Referrals: Emily Badillo MD [Primary Care Provider] - 1-2 days
[2020-07-20] MEDS ORDERED: LABETALOL 100 MG TAB PO SCH (13:15)
[2020-07-20 13:41] LABS: Basophils # (A) 0.1 k/uL (0-0.2); Basophils % (A) 1 %; Eosinophils # (A) 0.1 k/uL (0-0.7); Eosinophils % (A) 1 %; HCT 50.7 % (39.0-53.0); HGB 16.9 gm/dL (13.0-17.5); Lymphocytes # (A) 1.4 k/uL (1.0-4.8); Lymphocytes % (A) 11 %; MCHC 33.4 g/dL (31.0-37.0); MCV 95.7 fL (80.0-100.0); Mean Platelet Volume 7.3; Monocytes # (A) 0.6 k/uL (0-1.0); Monocytes % (A) 5 %; Neutrophils # (A) 10.3 k/uL (1.3-7.7); Neutrophils % (A) 81 %; Platelet Count 258 k/uL (150-450); RBC 5.29 m/uL (4.30-5.90); RDW 13.6 % (11.5-15.5); WBC 12.8 k/uL (3.8-10.6)
[2020-07-20 13:49] LABS: ALT 86 U/L (4-49); AST 87 U/L (17-59); African American GFR (CKD) >90 (>60 ml/min/1.73 sqM); Albumin 3.7 g/dL (3.5-5.0); Alkaline Phosphatase 98 U/L (38-126); Anion Gap 7 mmol/L; Blood Urea Nitrogen 21 mg/dL (9-20); Calcium 8.8 mg/dL (8.4-10.2); Carbon Dioxide 26 mmol/L (22-30); Chloride 97 mmol/L (98-107); Creatine Kinase 67 U/L (55-170); Glucose 125 mg/dL (74-99); Non-African American GFR(CKD) >90 (>60 ml/min/1.73 sqM); Phosphorus 4.6 mg/dL (2.5-4.5); Sodium 130 mmol/L (137-145); Total Bilirubin 0.8 mg/dL (0.2-1.3); Total Protein 7.3 g/dL (6.3-8.2)
[2020-07-20] MEDS ORDERED: LISINOPRIL-HCTZ 20-25 MG 1 EACH TAB PO STA (14:04)
[2020-07-20] MEDS ORDERED: cloNIDine HCL 0.1 MG TAB PO STA (15:09)
[2020-07-20 16:41] VITALS: BP 172/116; PULSE 92; RESP 18
== END 2020-07-20 16:39 | disposition home or self-care (01) ==
LOC: EC 12:20
DX: I10 Essential (primary) hypertension (principal); Z02.89 Encounter for other administrative examinations; F17.200 Nicotine dependence, unspecified, uncomplicated
CPT/HCPCS: 36415; 80053; 82550; 83735; 84100; 84484; 85025; 93005; 99284

== ENCOUNTER 2020-08-28 22:04 | Emergency (ER) | payer OTHER ==
[2020-08-28 22:19] VITALS: RESP 18
[2020-08-28] MEDS ORDERED: IBUPROFEN 600 MG TAB PO STA (22:58)
--- NOTE | 2020-08-28 23:16 | XR ---
EXAMINATION TYPE: XR finger LT DATE OF EXAM: 08/28/2020 COMPARISON: NONE HISTORY: Second digit wound. TECHNIQUE: 3 views FINDINGS: I see no fracture nor dislocation. There is some mild soft tissue swelling at the end of th e index finger. There is no sign of a foreign body. IMPRESSION: No fracture. Soft tissue swelling.
[2020-08-28] MEDS ORDERED: CEPHALEXIN 500MG STARTER PACK 4 CAP BTL PO STA (23:31)
--- NOTE | 2020-08-28 23:34 | ED ---
General Adult HPI - General Chief complaint: Extremity Problem,Nontraumatic Stated complaint: L Finger Injury Time Seen by Provider: 08/28/20 22:34 Source: patient Mode of arrival: ambulatory Limitations: no limitations - History of Present Illness Initial comments: 35 year-old male patient presents to the emergency department this evening with complaints of pain to the left index finger. Patient states three months ago he did have an injury where a metal nail became imbedded in the tip of the finger. He states that he did remove the nail on his own and followed up for care a couple of days later. Patient states for the last three days the finger has been hurting. States that he still has irregularity to the tip of his finger from the nail injury. He denies any fever or chills. Denies any new injury. Patient denies any headache, neck pain, back pain, chest pain, shortness of breath, dizziness, weakness, abdominal pain, nausea, vomiting, or difficulties with bowel movements or urination. - Related Data Previous Rx's Medication Instructions Recorded Lisinopril-Hctz 20-25 mg 1 tab PO DAILY #60 tab 07/20/20 [Zestoretic 20-25] cloNIDine HCL [Catapres] 0.3 mg PO BID #60 tab 07/20/20 Cephalexin [Keflex] 500 mg PO Q6HR #40 cap 08/28/20 Allergies Allergy/AdvReac Type Severity Reaction Status Date / Time No Known Allergies Allergy Verified 08/28/20 22:21 Review of Systems ROS Statement: Those systems with pertinent positive or pertinent negative responses have been documented in the HPI. ROS Other: All systems not noted in ROS Statement are negative. Past Medical History Past Medical History: Hypertension Additional Past Medical History / Comment(s): hx migraines History of Any Multi-Drug Resistant Organisms: None Reported Additional Past Surgical History / Comment(s): fx Tibia and fibula, I&D testicle, Past Anesthesia/Blood Transfusion Reactions: No Reported Reaction Past Psychological History: Depression Smoking Status: Current every day smoker Past Alcohol Use History: Daily, Heavy Past Drug Use History: Heroin, Marijuana - Past Family History Mother Family Medical History: Cancer Additional Family Medical History / Comment(s): cervical cancer Father Family Medical History: Cancer Additional Family Medical History / Comment(s): Father in 1997 from lung and liver cancer General Exam Limitations: no limitations General appearance: alert, in no apparent distress, other (This is a well- developed, well-nourished adult male patient in no acute distress. Vital signs upon presentation are temperature 98.7F, pulse 76, respirations 18, blood pressure 183/103, pulse ox 97% on room air.) Respiratory exam: Present: normal lung sounds bilaterally. Absent: respiratory distress, wheezes, rales, rhonchi, stridor Cardiovascular Exam: Present: regular rate, normal rhythm, normal heart sounds. Absent: systolic murmur, diastolic murmur, rubs, gallop, clicks Extremities exam: Present: full ROM, normal capillary refill, other (There is callused scar formation over the distal tip of the left index finger. There is soft tissue swelling and surrounding erythema. Full ROM is intact. Skin is otherwise pink, warm, dry. Cap refills less than 3 seconds. Radial pulses 2+ and equal bilaterally.). Absent: normal inspection, tenderness, pedal edema, joint swelling, calf tenderness Neurological exam: Present: alert, oriented X3, CN II-XII intact Psychiatric exam: Present: normal affect, normal mood Skin exam: Present: warm, dry, intact, normal color. Absent: rash Course Vital Signs 08/28/20 08/28/20 22:14 23:51 Temperature 98.7 F 97.2 F L Pulse Rate 76 99 Respiratory 18 18 Rate Blood Pressure 183/103 181/107 O2 Sat by Pulse 97 99 Oximetry Medical Decision Making - Medical Decision Making 35-year-old male patient presents to the emergency department today for evaluation of left index finger pain, swelling, redness. Physical examination did reveal callus formation over the distal tip of the finger, there is mild soft tissue swelling and erythema noted. Patient exhibits full range of motion. No tendon sheath tenderness. X-ray was obtained and was negative. We will treat patient for cellulitis with Keflex. He is instructed to follow-up with primary care physician wound care for further evaluation. Return parameters were discussed in detail. He verbalizes understanding and agrees with this plan. - Radiology Data Radiology results: report reviewed, image reviewed X-ray of the left index finger was obtained. Report was reviewed in its entirety. Impression by Dr. Celeste shows no fracture. Soft tissue swelling. Disposition Clinical Impression: Cellulitis, finger Disposition: HOME SELF-CARE Condition: Good Instructions (If sedation given, give patient instructions): Cellulitis (ED) Additional Instructions: Complete antibiotic prescription in full. Follow-up through primary care physician for recheck in 1-2 days. Follow-up with wound care for further evaluation. Return to the emergency department immediately for any new, worsening, or concerning symptoms. Prescriptions: Cephalexin [Keflex] 500 mg PO Q6HR #40 cap Is patient prescribed a controlled substance at d/c from ED?: No Referrals: Bandar Louis MD [STAFF PHYSICIAN] - 1-2 days Time of Disposition: 23:34
[2020-08-28 23:52] VITALS: BP 181/107; PULSE 99; TEMP 97.2
== END 2020-08-28 23:54 | disposition home or self-care (01) ==
LOC: EC 22:04
DX: L03.012 Cellulitis of left finger (principal); L84 Corns and callosities; F17.200 Nicotine dependence, unspecified, uncomplicated
CPT/HCPCS: 99283

== ENCOUNTER 2020-09-01 15:42 | Emergency (ER) | payer OTHER ==
[2020-09-01 16:36] VITALS: RESP 18
[2020-09-01] MEDS ORDERED: KETOROLAC 15 MG/ML 1 ML VIAL IVP STA (16:41)
[2020-09-01] MEDS ORDERED: SODIUM CHLORIDE 0.9% 1,000 ML IV ONE (16:41)
[2020-09-01] MEDS ORDERED: LIDOCAINE 1% INJ 10MG/ML (20 ML MDV) SQ ONE (16:41)
[2020-09-01] MEDS ORDERED: LISINOPRIL-HCTZ 20-25 MG 1 EACH TAB PO STA (16:42)
[2020-09-01 17:08] LABS: Basophils % (A) 0 %; Eosinophils # (A) 0.2 k/uL (0-0.7); Eosinophils % (A) 1 %; HCT 42.4 % (39.0-53.0); HGB 14.6 gm/dL (13.0-17.5); Lymphocytes # (A) 1.6 k/uL (1.0-4.8); Lymphocytes % (A) 10 %; MCH 33.2 pg (25.0-35.0); MCHC 34.4 g/dL (31.0-37.0); MCV 96.6 fL (80.0-100.0); Mean Platelet Volume 6.9; Monocytes # (A) 0.8 k/uL (0-1.0); Monocytes % (A) 5 %; Neutrophils # (A) 12.7 k/uL (1.3-7.7); Neutrophils % (A) 82 %; Platelet Count 330 k/uL (150-450); RBC 4.39 m/uL (4.30-5.90); RDW 13.1 % (11.5-15.5); WBC 15.6 k/uL (3.8-10.6)
[2020-09-01 17:16] LABS: INR 0.9 (<1.2); Partial Thromboplastin Time 23.2 sec (22.0-30.0); Prothrombin Time 9.8 sec (9.0-12.0)
[2020-09-01 17:20] LABS: African American GFR (CKD) >90 (>60 ml/min/1.73 sqM); Anion Gap 9 mmol/L; Blood Urea Nitrogen 17 mg/dL (9-20); Calcium 9.4 mg/dL (8.4-10.2); Carbon Dioxide 21 mmol/L (22-30); Chloride 106 mmol/L (98-107); Glucose 98 mg/dL (74-99); Magnesium 1.8 mg/dL (1.6-2.3); Non-African American GFR(CKD) >90 (>60 ml/min/1.73 sqM); Potassium 3.9 mmol/L (3.5-5.1); Sodium 136 mmol/L (137-145)
[2020-09-01] MEDS ORDERED: CLINDAMYCIN 600 MG in DEXTROSE 5% IN WATER 50 ML IVPB STA ×2 (17:36)
--- NOTE | 2020-09-01 17:37 | ED ---
General Adult HPI - General Chief complaint: Skin/Abscess/Foreign Body Stated complaint: Male Time Seen by Provider: 09/01/20 16:34 Source: patient, RN notes reviewed, old records reviewed Mode of arrival: ambulatory Limitations: no limitations - History of Present Illness Initial comments: 35-year-old presenting with pain and swelling at the gluteal cleft. He denies fever. He reports that he noticed a lump and and erythema. He denies fever. He has history of hypertension but is not currently taking his medication. He reports a previous history of pilonidal abscess. He is currently on antibiotics which she received from an outside clinic, he believes he is on Keflex and doxycycline. - Related Data Home Medications Medication Instructions Recorded Confirmed Famotidine [Pepcid] 20 mg PO BID 09/01/20 09/01/20 Ibuprofen 600 mg PO Q8H PRN 09/01/20 09/01/20 lisinopriL 40 mg PO DAILY 09/01/20 09/01/20 Previous Rx's Medication Instructions Recorded Cephalexin [Keflex] 500 mg PO Q6HR #40 cap 08/28/20 Allergies Allergy/AdvReac Type Severity Reaction Status Date / Time No Known Allergies Allergy Verified 09/01/20 17:49 Review of Systems ROS Statement: Those systems with pertinent positive or pertinent negative responses have been documented in the HPI. ROS Other: All systems not noted in ROS Statement are negative. Past Medical History Past Medical History: Hypertension Additional Past Medical History / Comment(s): hx migraines History of Any Multi-Drug Resistant Organisms: None Reported Additional Past Surgical History / Comment(s): fx Tibia and fibula, I&D testicle, Past Anesthesia/Blood Transfusion Reactions: No Reported Reaction Past Psychological History: Depression Smoking Status: Current every day smoker Past Alcohol Use History: Daily, Heavy Past Drug Use History: Heroin, Marijuana - Past Family History Mother Family Medical History: Cancer Additional Family Medical History / Comment(s): cervical cancer Father Family Medical History: Cancer Additional Family Medical History / Comment(s): Father in 1997 from lung and liver cancer General Exam Limitations: no limitations General appearance: alert, in no apparent distress Head exam: Present: atraumatic, normocephalic Eye exam: Present: normal appearance, PERRL Respiratory exam: Present: normal lung sounds bilaterally. Absent: respiratory distress, wheezes Cardiovascular Exam: Present: normal rhythm, tachycardia GI/Abdominal exam: Present: soft. Absent: distended, tenderness, guarding, rebound Rectal exam: Present: other (5 cm x 4 cm abscess at the superior gluteal cleft consistent with a pilonidal abscess with adjacent cellulitis. Does not involve the rectum) Course Vital Signs 09/01/20 09/01/20 09/01/20 15:58 16:31 17:20 Temperature 99.7 F H Pulse Rate 136 H 130 H 127 H Respiratory 19 18 18 Rate Blood Pressure 204/132 209/141 202/138 O2 Sat by Pulse 98 98 98 Oximetry 09/01/20 18:10 Temperature 98.2 F Pulse Rate 123 H Respiratory 18 Rate Blood Pressure 190/107 O2 Sat by Pulse 99 Oximetry EKG Findings - EKG Comments: EKG Findings:: EKG: Sinus tachycardia, left atrial enlargement, no ST segment elevation, rate of 126, W[place] interval 1:30, QRS duration 84, QTC 466 Procedures - Incision & Drainage Consent Obtained: verbal consent Indication: Pilonidal abscess Site: buttock Anesthetic Used: lidocaine 1% Amount (mLs): 5 I&D Cleaning Method: Chloroprep Sterile Field Used?: Yes Scalpel Used: #11 Needle Aspiration Performed?: No Irrigation Performed?: Yes I&D Drainage Obtained: Pus, Blood Packing: Iodoform Culture Obtained?: Yes Patient Tolerated Procedure: well Medical Decision Making - Medical Decision Making 35-year-old with a pilonidal abscess and cellulitis. He is tachycardic and hypertensive although he did not take his blood pressure medication. He is given IV fluid, started on IV antibiotics, given his home hypertension medication. He has an elevated white blood cell count. abscess drained in the emergency Department with cultures pending. Significant Drainage was obtained. Case discussed with Dr. Mancera who will admit. - Lab Data Result diagrams: 09/01/20 16:57 09/01/20 16:57 Lab Results 09/01/20 09/01/20 09/01/20 Range/Units 16:57 16:57 16:57 WBC 15.6 H (3.8-10.6) k/uL RBC 4.39 (4.30-5.90) m/uL Hgb 14.6 (13.0-17.5) gm/dL Hct 42.4 (39.0-53.0) % MCV 96.6 (80.0-100.0) fL MCH 33.2 (25.0-35.0) pg MCHC 34.4 (31.0-37.0) g/dL RDW 13.1 (11.5-15.5) % Plt Count 330 (150-450) k/uL Neutrophils % 82 % Lymphocytes % 10 % Monocytes % 5 % Eosinophils % 1 % Basophils % 0 % Neutrophils # 12.7 H (1.3-7.7) k/uL Lymphocytes # 1.6 (1.0-4.8) k/uL Monocytes # 0.8 (0-1.0) k/uL Eosinophils # 0.2 (0-0.7) k/uL Basophils # 0.0 (0-0.2) k/uL PT 9.8 (9.0-12.0) sec INR 0.9 (<1.2) APTT 23.2 (22.0-30.0) sec Sodium 136 L (137-145) mmol/L Potassium 3.9 (3.5-5.1) mmol/L Chloride 106 (98-107) mmol/L Carbon Dioxide 21 L (22-30) mmol/L Anion Gap 9 mmol/L BUN 17 (9-20) mg/dL Creatinine 0.95 (0.66-1.25) mg/dL Est GFR (CKD-EPI)AfAm >90 (>60 ml/min/1.73 sqM) Est GFR (CKD-EPI)NonAf >90 (>60 ml/min/1.73 sqM) Glucose 98 (74-99) mg/dL Plasma Lactic Acid Moody (0.7-2.0) mmol/L Calcium 9.4 (8.4-10.2) mg/dL Magnesium 1.8 (1.6-2.3) mg/dL 09/01/20 Range/Units 16:57 WBC (3.8-10.6) k/uL RBC (4.30-5.90) m/uL Hgb (13.0-17.5) gm/dL Hct (39.0-53.0) % MCV (80.0-100.0) fL MCH (25.0-35.0) pg MCHC (31.0-37.0) g/dL RDW (11.5-15.5) % Plt Count (150-450) k/uL Neutrophils % % Lymphocytes % % Monocytes % % Eosinophils % % Basophils % % Neutrophils # (1.3-7.7) k/uL Lymphocytes # (1.0-4.8) k/uL Monocytes # (0-1.0) k/uL Eosinophils # (0-0.7) k/uL Basophils # (0-0.2) k/uL PT (9.0-12.0) sec INR (<1.2) APTT (22.0-30.0) sec Sodium (137-145) mmol/L Potassium (3.5-5.1) mmol/L Chloride (98-107) mmol/L Carbon Dioxide (22-30) mmol/L Anion Gap mmol/L BUN (9-20) mg/dL Creatinine (0.66-1.25) mg/dL Est GFR (CKD-EPI)AfAm (>60 ml/min/1.73 sqM) Est GFR (CKD-EPI)NonAf (>60 ml/min/1.73 sqM) Glucose (74-99) mg/dL Plasma Lactic Acid Moody 1.1 (0.7-2.0) mmol/L Calcium (8.4-10.2) mg/dL Magnesium (1.6-2.3) mg/dL Disposition Clinical Impression: Pilonidal abscess Disposition: ADMITTED IP TO THIS [facility] Condition: Stable Instructions (If sedation given, give patient instructions): Pilonidal Cyst (ED), Abscess Incision and Drainage (ED), Abscess (ED) Is patient prescribed a controlled substance at d/c from ED?: No Referrals: None,Stated [Primary Care Provider] - 1-2 days Emily Badillo MD [REFERRING] - 1-2 days Decision to Admit Reason: Admit from EC Decision Date: 09/01/20 Decision Time: 17:59
[2020-09-01] MEDS ORDERED: SODIUM CHLORIDE 0.9% 1,000 ML IV SCH (18:00)
[2020-09-01] MEDS ORDERED: NALOXONE 0.4 MG/ML 1 ML VIAL IV PRN (18:00)
[2020-09-01] MEDS ORDERED: IBUPROFEN 600 MG TAB PO PRN (18:01)
[2020-09-01 18:12] VITALS: TEMP 98.2
[2020-09-01 19:18] VITALS: BP 176/117; PULSE 124
[2020-09-02] MEDS ORDERED: CLINDAMYCIN 600 MG in DEXTROSE 5% IN WATER 50 ML IVPB SCH ×2
[2020-09-02] MEDS ORDERED: NON FORMULARY DRUG (Lisinopril [Lisinopril] 40 MG Tablet) PO SCH (09:00)
== END 2020-09-01 19:53 | disposition other institution (70) ==
LOC: EC 15:42 → 1SOBS 18:01 → UNDOADMOB 18:01 → EC 19:53
DX: L05.01 Pilonidal cyst with abscess (principal); L03.317 Cellulitis of buttock; I10 Essential (primary) hypertension; R00.0 Tachycardia, unspecified; Z79.899 Other long term (current) drug therapy; F17.200 Nicotine dependence, unspecified, uncomplicated
CPT/HCPCS: 99285; 96365; 96375; 96361; 10080; 36415; 93005; 80048; 83605; 83735; 85025; 85610; 85730; 87040; 87070; 87205; J2001; J1885

== ENCOUNTER 2020-10-10 03:53 | Emergency (ER) | payer OTHER ==
[2020-10-10 04:13] VITALS: TEMP 97
[2020-10-10] MEDS ORDERED: diazePAM 5 MG TAB PO STA (04:24)
[2020-10-10] MEDS ORDERED: IBUPROFEN 800 MG TAB PO STA (04:24)
--- NOTE | 2020-10-10 04:25 | ED ---
Chest Pain HPI - General Chief Complaint: Chest Pain Stated Complaint: chest pain Time Seen by Provider: 10/10/20 03:56 Source: patient, RN notes reviewed, old records reviewed Mode of arrival: ambulatory Limitations: no limitations - History of Present Illness Initial Comments: This is a 35-year-old male well-known to this ER coming with chest pain or complaining of chest pain today. Patient is homeless on the cold and states upon further questioning any dysuria cold until he could find a place to go. States his uncle should be up this morning. Patient denying current drugs or alcohol abuse. No injury or trauma no fevers cough or congestion. MD Complaint: chest pain -: unknown Onset: during exertion Pain Location: substernal Pain Radiation: none Severity: mild Severity scale (1-10): 2 Quality: tightness Consistency: constant Improves With: nothing Worsens With: nothing Other Symptoms: palpitations Treatments Prior to Arrival: none - Related Data Home Medications Medication Instructions Recorded Confirmed Famotidine [Pepcid] 20 mg PO BID 09/01/20 09/01/20 Ibuprofen 600 mg PO Q8H PRN 09/01/20 09/01/20 lisinopriL 40 mg PO DAILY 09/01/20 09/01/20 Previous Rx's Medication Instructions Recorded Cephalexin [Keflex] 500 mg PO Q6HR #40 cap 08/28/20 Allergies Allergy/AdvReac Type Severity Reaction Status Date / Time No Known Allergies Allergy Verified 10/10/20 04:13 Review of Systems ROS Statement: Those systems with pertinent positive or pertinent negative responses have been documented in the HPI. ROS Other: All systems not noted in ROS Statement are negative. EKG Findings - EKG Comments: EKG Findings:: EKG is sinus at a 94 OK 122 QRS 90 QTC 507 Past Medical History Past Medical History: Hypertension Additional Past Medical History / Comment(s): hx migraines History of Any Multi-Drug Resistant Organisms: None Reported Additional Past Surgical History / Comment(s): fx Tibia and fibula, I&D testicle, Past Anesthesia/Blood Transfusion Reactions: No Reported Reaction Past Psychological History: ADD/ADHD, Depression Smoking Status: Current every day smoker Past Alcohol Use History: Daily, Heavy Past Drug Use History: Heroin, Marijuana - Past Family History Mother Family Medical History: Cancer Additional Family Medical History / Comment(s): cervical cancer Father Family Medical History: Cancer Additional Family Medical History / Comment(s): Father in 1997 from lung and liver cancer General Exam Limitations: no limitations General appearance: alert, in no apparent distress Head exam: Present: atraumatic, normocephalic, normal inspection Eye exam: Present: normal appearance, PERRL, EOMI. Absent: scleral icterus, conjunctival injection, periorbital swelling ENT exam: Present: normal exam, mucous membranes moist Neck exam: Present: normal inspection. Absent: tenderness, meningismus, lymp hadenopathy Respiratory exam: Present: normal lung sounds bilaterally. Absent: respiratory distress, wheezes, rales, rhonchi, stridor Cardiovascular Exam: Present: regular rate, normal rhythm, normal heart sounds. Absent: systolic murmur, diastolic murmur, rubs, gallop, clicks GI/Abdominal exam: Present: soft, normal bowel sounds. Absent: distended, tenderness, guarding, rebound, rigid Extremities exam: Present: normal inspection, full ROM, normal capillary refill. Absent: tenderness, pedal edema, joint swelling, calf tenderness Back exam: Present: normal inspection Neurological exam: Present: alert, oriented X3, CN II-XII intact Psychiatric exam: Present: normal affect, normal mood Skin exam: Present: warm, dry, intact, normal color. Absent: rash Course Vital Signs 10/10/20 10/10/20 10/10/20 03:54 05:00 05:57 Temperature 97 F L Pulse Rate 90 89 87 Respiratory 20 17 18 Rate Blood Pressure 189/102 182/112 167/103 O2 Sat by Pulse 100 97 95 Oximetry - Reevaluation(s) Reevaluation #1: Medical record is reviewed on reevaluation patient is sleeping and cot in the ER Patient informed of results and questions are answered Chest Pain MDM - MDM 35 male DF for chest pain EKG normal x-ray is normal patient needed a place to stay get out of cold. Patient can be discharged home Disposition Clinical Impression: Atypical chest pain Disposition: HOME SELF-CARE Condition: Good Instructions (If sedation given, give patient instructions): Chest Pain (ED) Is patient prescribed a controlled substance at d/c from ED?: No Referrals: None,Stated [Primary Care Provider] - 1-2 days
--- NOTE | 2020-10-10 05:05 | XR ---
EXAM: XR Chest, 1 View CLINICAL HISTORY: ITS.REASON XR Reason: cp TECHNIQUE: Frontal view of the chest. COMPARISON: none available FINDINGS: Lungs: Hazy retrocardiac opacity, new from 05/22/2020. Diffuse perihilar reticular opacities. Pleural space: No pleural effusion. No pneumothorax. Heart: Unremarkable. No cardiomegaly. Mediastinum: Unremarkable. Bones/joints: Unremarkable. IMPRESSION: 1. Hazy retrocardiac opacity which may be due to infection or aspiration. 2. Diffuse perihilar reticular opacities may be due to edema or small airways infection.
[2020-10-10 06:04] VITALS: BP 167/103; PULSE 87; RESP 18
== END 2020-10-10 05:57 | disposition home or self-care (01) ==
LOC: EC 03:53
DX: R07.89 Other chest pain (principal); R00.2 Palpitations; Z59.0 Homelessness; I10 Essential (primary) hypertension; F17.200 Nicotine dependence, unspecified, uncomplicated; Z79.899 Other long term (current) drug therapy
CPT/HCPCS: 71045; 93005; 99285

== ENCOUNTER 2020-10-27 00:58 | Emergency (ER) | payer OTHER ==
--- NOTE | 2020-10-27 01:48 | ED ---
SOB HPI - General Chief Complaint: Shortness of Breath Stated Complaint: RADHA Time Seen by Provider: 10/27/20 01:10 Source: patient Mode of arrival: ambulatory Limitations: no limitations - History of Present Illness Initial Comments: Patient is a 35-year-old male, presenting to the emergency Department with complaints of shortness of breath 2 days. Patient states he is currently homeless and has been trying to find areas to sleep but it is very cold outside. He denies any chest pain, nausea, vomiting, cough, fever or chills. He states he has been trying to look for shelters to sleep in. Patient states she is supposed to be on blood pressure medication but states he ran out about 3 days ago. He denies any alcohol use, no other drug use. He has no further complaints at this time. Upon arrival to the ER, his vitals are stable. - Related Data Home Medications Medication Instructions Recorded Confirmed Famotidine [Pepcid] 20 mg PO BID 09/01/20 09/01/20 Ibuprofen 600 mg PO Q8H PRN 09/01/20 09/01/20 Previous Rx's Medication Instructions Recorded Cephalexin [Keflex] 500 mg PO Q6HR #40 cap 08/28/20 lisinopriL 40 mg PO DAILY #30 tab 10/27/20 Allergies Allergy/AdvReac Type Severity Reaction Status Date / Time No Known Allergies Allergy Verified 10/27/20 01:06 Review of Systems ROS Statement: Those systems with pertinent positive or pertinent negative responses have been documented in the HPI. ROS Other: All systems not noted in ROS Statement are negative. Past Medical History Past Medical History: Hypertension Additional Past Medical History / Comment(s): hx migraines History of Any Multi-Drug Resistant Organisms: None Reported Additional Past Surgical History / Comment(s): fx Tibia and fibula, I&D testicle, Past Anesthesia/Blood Transfusion Reactions: No Reported Reaction Past Psychological History: ADD/ADHD, Depression Smoking Status: Current every day smoker Past Alcohol Use History: Daily, Heavy Past Drug Use History: Heroin, Marijuana - Past Family History Mother Family Medical History: Cancer Additional Family Medical History / Comment(s): cervical cancer Father Family Medical History: Cancer Additional Family Medical History / Comment(s): Father in 1997 from lung and liver cancer General Exam - General Exam Comments Initial Comments: GENERAL: Patient is well-developed and well-nourished. Patient is nontoxic and in no acute distress. HEAD: Atraumatic, normocephalic. EYES: Pupils equal round and reactive to light, extraocular movements intact, sclera anicteric, conjunctiva are normal. Eyelids were unremarkable. ENT: TMs normal, nares patent, oropharynx clear without exudates. Moist mucous membranes. NECK: Normal range of motion, supple without lymphadenopathy or JVD. LUNGS: Unlabored respirations. Breath sounds clear to auscultation bilaterally and equal. No wheezes rales or rhonchi. HEART: Regular rate and rhythm without murmurs, rubs or gallops. ABDOMEN: Soft, nontender, normoactive bowel sounds. No guarding, no rebound. No masses appreciated. : Deferred MUSCULOSKELETAL: Normal extremities with adequate strength and normal range of motion, no pitting or edema. No clubbing or cyanosis. NEUROLOGICAL: Patient is alert and oriented x 3. Motor and sensory are also intact. Cranial nerves II through XII grossly intact. Symmetrical smile. Normal speech, normal gait. PSYCH: Normal mood, normal affect. SKIN: Warm, Dry, normal turgor, no rashes or lesions noted. Limitations: no limitations Course Vital Signs 10/27/20 10/27/20 10/27/20 01:05 02:03 02:57 Temperature 98.9 F 98.4 F Pulse Rate 105 H 98 Respiratory 24 18 16 Rate Blood Pressure 156/78 194/120 187/115 O2 Sat by Pulse 99 97 Oximetry Medical Decision Making - Medical Decision Making Patient is a 35-year-old male presenting with shortness of breath 2 days. Patient denies any chest pain, his vitals were stable upon arrival. Patient does admit that he is currently homeless and was looking for summer to warm up. He states he's been sleeping in the streets. EKG shows no acute process, chest x-ray is normal. Patient's blood pressure is elevated, he states he does take lisinopril 40 mg daily but he ran out a few days ago. I did give him his dose of lisinopril, and clonidine. Patient has chronically high blood pressures. We'll give him a prescription for his lisinopril daily. Patient is stable for discharge. Patient states he has a friend that runs a homeless half-way and he'll contact them the morning. - EKG Data EKG Comments: Sinus tach, no signs of acute ischemia, symmetric. EKG in 10/10/2020. Educated rate 101, [place] interval 120, QT 356. Disposition Clinical Impression: Shortness of breath, Hypertension Disposition: HOME SELF-CARE Condition: Stable Instructions (If sedation given, give patient instructions): Hypertension (ED) Additional Instructions: Please return to the Emergency Department if symptoms worsen or any other concerns. Take your medicine daily as prescribed. Need to follow up with your PCP. Prescriptions: lisinopriL 40 mg PO DAILY #30 tab Is patient prescribed a controlled substance at d/c from ED?: No Referrals: Emily Badillo MD [Primary Care Provider] - 1-2 days
--- NOTE | 2020-10-27 01:57 | XR ---
EXAM: XR Chest, 2 Views CLINICAL HISTORY: ITS.REASON XR Reason: short of breath TECHNIQUE: Frontal and lateral views of the chest. COMPARISON: CXR 10/10/20. FINDINGS: Lungs: Unremarkable. No consolidation. Pleural space: Unremarkable. No pleural effusion or pneumothorax. Heart: Unremarkable. No cardiomegaly or pulmonary vascular congestion. Mediastinum: Unremarkable. Bones/joints: Unremarkable. IMPRESSION: No evidence of acute cardiopulmonary disease.
[2020-10-27] MEDS ORDERED: lisinopriL 20 MG TAB PO STA (02:02)
[2020-10-27] MEDS ORDERED: cloNIDine HCL 0.2 MG TAB PO STA (02:02)
[2020-10-27 02:04] VITALS: PULSE 98; TEMP 98.4
[2020-10-27 02:58] VITALS: BP 187/115; RESP 16
== END 2020-10-27 03:29 | disposition home or self-care (01) ==
LOC: EC 00:58
DX: R06.02 Shortness of breath (principal); I10 Essential (primary) hypertension; F17.200 Nicotine dependence, unspecified, uncomplicated; Z79.899 Other long term (current) drug therapy; Z59.0 Homelessness
CPT/HCPCS: 71046; 93005; 99285

== ENCOUNTER 2020-10-29 15:32 | Emergency (ER) | payer OTHER ==
[2020-10-29 15:53] VITALS: BP 230/146; PULSE 115; RESP 18; TEMP 98.4
[2020-10-29] MEDS ORDERED: cloNIDine HCL 0.2 MG TAB PO STA (16:17)
[2020-10-29] MEDS ORDERED: lisinopriL 20 MG TAB PO STA (16:17)
[2020-10-29] MEDS ORDERED: BACITRACIN OINT 1 EACH PACKET TOPICAL ONE (16:26)
[2020-10-29] MEDS ORDERED: CEPHALEXIN 500MG STARTER PACK 4 CAP BTL PO STA (16:28)
--- NOTE | 2020-10-29 16:45 | ED ---
Extremity Problem HPI - General Chief complaint: Extremity Problem,Nontraumatic Stated complaint: L Lower Extremity Issue Time Seen by Provider: 10/29/20 16:02 Source: patient Mode of arrival: wheelchair Limitations: no limitations - History of Present Illness Initial comments: Patient is a 35-year-old male presenting to emergency Department with complaints of a blister on the left side of his foot. Patient states he noticed it yesterday. Patient states it extremely painful and his foot is slightly red. Patient states he had new boots and was walking in them a lot the last 2 days. Patient states he is homeless, he also has history of high blood pressure. 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 He states that he is going to start staying with his mother so that he now can get his prescription filled. He denies any chest pain, shortness of breath, fever, chills, nausea or vomiting. Patient has no further complaints at this time. He is hypertensive upon arrival, he denies any headache, dizziness, blurry vision. - Related Data Home Medications Medication Instructions Recorded Confirmed Famotidine [Pepcid] 20 mg PO BID 09/01/20 09/01/20 Ibuprofen 600 mg PO Q8H PRN 09/01/20 09/01/20 Previous Rx's Medication Instructions Recorded Cephalexin [Keflex] 500 mg PO Q6HR #40 cap 08/28/20 lisinopriL 40 mg PO DAILY #30 tab 10/27/20 Allergies Allergy/AdvReac Type Severity Reaction Status Date / Time No Known Allergies Allergy Verified 10/29/20 15:53 Review of Systems ROS Statement: Those systems with pertinent positive or pertinent negative responses have been documented in the HPI. ROS Other: All systems not noted in ROS Statement are negative. Past Medical History Past Medical History: Hypertension Additional Past Medical History / Comment(s): hx migraines History of Any Multi-Drug Resistant Organisms: None Reported Past Surgical History: No Surgical Hx Reported Additional Past Surgical History / Comment(s): fx Tibia and fibula, I&D testicle, Past Anesthesia/Blood Transfusion Reactions: No Reported Reaction Past Psychological History: ADD/ADHD, Depression Smoking Status: Current every day smoker Past Alcohol Use History: Daily, Heavy Past Drug Use History: Heroin, Marijuana - Past Family History Mother Family Medical History: Cancer Additional Family Medical History / Comment(s): cervical cancer Father Family Medical History: Cancer Additional Family Medical History / Comment(s): Father in 1997 from lung and liver cancer General Exam - General Exam Comments Initial Comments: GENERAL: Patient is well-developed and well-nourished. Patient is nontoxic and in no acute distress. HEAD: Atraumatic, normocephalic. EYES: Pupils equal round and reactive to light, extraocular movements intact, sclera anicteric, conjunctiva are normal. Eyelids were unremarkable. ENT: TMs normal, nares patent, oropharynx clear without exudates. Moist mucous membranes. NECK: Normal range of motion, supple without lymphadenopathy or JVD. LUNGS: Unlabored respirations. Breath sounds clear to auscultation bilaterally and equal. No wheezes rales or rhonchi. HEART: Regular rate and rhythm without murmurs, rubs or gallops. ABDOMEN: Soft, nontender, normoactive bowel sounds. No guarding, no rebound. No masses appreciated. : Deferred MUSCULOSKELETAL: Normal extremities with adequate strength and normal range of motion, no pitting or edema. No clubbing or cyanosis. NEUROLOGICAL: Patient is alert and oriented x 3. Motor and sensory are also intact. Cranial nerves II through XII grossly intact. Symmetrical smile. Normal speech, normal gait. PSYCH: Normal mood, normal affect. SKIN: Warm, Dry, normal turgor, no rashes. Patient has a large blister on the lateral aspect of his left foot, distal near the fifth phalanx. This appears to be a friction blister, it is painful to the touch, there is some mild surrounding erythema, no erythema traveling up the foot, is no warmth to the area. Limitations: no limitations Course Vital Signs 10/29/20 15:50 Temperature 98.4 F Pulse Rate 115 H Respiratory 18 Rate Blood Pressure 230/146 O2 Sat by Pulse 99 Oximetry Procedures - Davis Protocol (Time Out) Procedure Performed:: blister drain Performing Provider: Dari Astorga Nurse: Radha Borja Timeout Date: 10/29/20 Timeout Time: 16:30 Patient Identification (2 identifiers required): Chart, Verbal, Arm Band Patient/Legal [employer] has Confirmed: Identity, Site, Procedure, Consent Site: left foot Site Marked: Yes Site Verified With Patient/Guardian: Yes Final Confirmation: Procedure, Site, Confirmed w/Provider - Procedures Initial comment: Patient has a 2 cm blister on the lateral aspect left foot distal, near the fifth metatarsal. I cleaned the area, punctured the skin with an 18-gauge needle, clear and bloody fluid was drained from the area, patient tolerated procedure well. I did put topical antibiotic and a bandage over after the area was drained. Medical Decision Making - Medical Decision Making Patient is a 35-year-old male presenting with a 2 cm blister on his left lateral foot. Patient is homeless, recently was walking in new boots. He has no fevers, patient does have history of hypertension, he was seen in the ER a few days ago and was given a prescription for lisinopril, he states he has not filled this yet. He did arrive hypertensive, he denies a headache, blurry vision, his exam is unremarkable except for the blister. Patient was given a dose of lisinopril and clonidine in the ER. I was able to drain the blister without difficulty. Patient has relief of pain and pressure. I did give him a starter pack of Keflex secondary to the mild redness around the blister. I also gave him topical bacitracin and bandages to apply. I recommended patient stay in the ER to have blood pressure rechecked, patient refuses. Patient states he just wants to leave. I discussed with patient the complications of elevated blood pressure, he still wants to leave. Patient will be discharged. Return parameters were discussed with the patient he verbalizes understanding. Disposition Clinical Impression: Blister of left foot, Hypertension Disposition: HOME SELF-CARE Condition: Stable Instructions (If sedation given, give patient instructions): Blister (ED) Additional Instructions: Please return to the Emergency Department if symptoms worsen or any other concerns. Take antibiotics as discussed. Please fill blood pressure medication as discussed as well. Is patient prescribed a controlled substance at d/c from ED?: No Referrals: None,Stated [Primary Care Provider] - 1-2 days
== END 2020-10-29 16:58 | disposition home or self-care (01) ==
LOC: EC 15:32
DX: S90.822A Blister (nonthermal), left foot, initial encounter (principal); I10 Essential (primary) hypertension; F17.200 Nicotine dependence, unspecified, uncomplicated; Z59.0 Homelessness; X58.XXXA Exposure to other specified factors, initial encounter; Y93.01 Activity, walking, marching and hiking
CPT/HCPCS: 10060; 99283

== ENCOUNTER 2020-10-31 20:45 | Observation (INO) | payer BC, OTHER ==
[2020-10-31] MEDS ORDERED: SODIUM CHLORIDE 0.9% 1,000 ML IV ONE (21:15)
[2020-10-31] MEDS ORDERED: hydrALAZINE HCL 20 MG/ML 1 ML VIAL IVP STA (21:15)
[2020-10-31] MEDS ORDERED: SODIUM CHLORIDE 0.9% 500 ML 500 ML IV ONE (21:15)
[2020-10-31] MEDS ORDERED: HYDROmorphone 0.5 MG/0.5 ML SYRINGE IVP STA (21:15)
[2020-10-31] MEDS ORDERED: VANCOMYCIN IV PER PHARMACY 1 EACH MISC MISCELLANE PRN (21:19)
[2020-10-31] MEDS ORDERED: NALOXONE 0.4 MG/ML 1 ML VIAL IV PRN (21:20)
--- NOTE | 2020-10-31 21:21 | ED ---
Wound/Laceration HPI - General Chief Complaint: Wound/Laceration Stated Complaint: Left Foot Wound Time Seen by Provider: 10/31/20 21:04 Source: patient Mode of arrival: ambulatory Limitations: no limitations - History of Present Illness Initial Comments: 35-year-old male presented for worsening left foot infection. Patient states on Sunday he noticed a blister on the left lateral aspect of his foot. Patient states he presented to the ER a few days later was provided antibiotics. He states he is only given a few pills to start. Patient states he took all those he states he did not fill his prescription. Patient states the infection is not spreading up his leg. He states his whole foot is very painful and red. He states that the blister was drained at the last appointment. Patient denies any known fevers he admits to chills general malaise. Patient denies chest pain shortness of breath or upper respiratory symptoms. Patient has no additional complaints or concerns patient is a history of IV drug use he is unsure if he has a history of MRSA infection. - Related Data Home Medications Medication Instructions Recorded Confirmed Ibuprofen [Motrin Ib] 600 mg PO Q8H PRN 10/31/20 10/31/20 Previous Rx's Medication Instructions Recorded lisinopriL 40 mg PO DAILY #30 tab 10/27/20 Allergies Allergy/AdvReac Type Severity Reaction Status Date / Time No Known Allergies Allergy Verified 10/31/20 21:28 Review of Systems ROS Statement: Those systems with pertinent positive or pertinent negative responses have been documented in the HPI. ROS Other: All systems not noted in ROS Statement are negative. Past Medical History Past Medical History: Hypertension Additional Past Medical History / Comment(s): hx migraines History of Any Multi-Drug Resistant Organisms: None Reported Past Surgical History: No Surgical Hx Reported Additional Past Surgical History / Comment(s): fx Tibia and fibula, I&D testicle, Past Anesthesia/Blood Transfusion Reactions: No Reported Reaction Past Psychological History: ADD/ADHD, Depression Smoking Status: Current every day smoker Past Alcohol Use History: Daily, Heavy Past Drug Use History: Heroin, Marijuana - Past Family History Mother Family Medical History: Cancer Additional Family Medical History / Comment(s): cervical cancer Father Family Medical History: Cancer Additional Family Medical History / Comment(s): Father in 1997 from lung and liver cancer General Exam - General Exam Comments Initial Comments: General: The patient is awake and alert Eye: Pupils are equal, round and reactive to light, extra-ocular movements are intact. No nystagmus. There is normal conjunctiva bilaterally. No signs of icterus. Ears, nose, mouth and throat: There are moist mucous membranes and no oral lesions. Neck: The neck is supple, there is no tenderness or JVD. Cardiovascular: There is a regular rate and rhythm. No murmur, rub or gallop is appreciated. Respiratory: Lungs are clear to auscultation, respirations are non-labored, breath sounds are equal. No wheezes, stridor, rales, or rhonchi. Musculoskeletal: Normal ROM, no tenderness. Strength 5/5. Sensation intact. Radial pulses equal bilaterally 2+. Neurological: A&O x 3. CN II-XII intact grossly, There are no obvious motor or sensory deficits. Coordination appears grossly intact. Speech is normal. Skin: Skin is warm and dry and no rashes. left foot redness, 5xm x 2cm excoriated area of the left lateral great toe, distal foot. no drainage. pain to palpation of area no crepitus Psychiatric: Cooperative, appropriate mood & affect, normal judgment. Limitations: no limitations Course Vital Signs 10/31/20 10/31/20 10/31/20 20:56 21:49 22:04 Temperature 99.1 F Pulse Rate 111 H 109 H 111 H Respiratory 20 18 18 Rate Blood Pressure 210/123 174/97 157/89 O2 Sat by Pulse 99 100 100 Oximetry Medical Decision Making - Medical Decision Making Patient has significant cellulitis of the left foot. History IV drug use. Patient was on oral outpatient antibiotics. Failed treatment however there is suspected degree of noncompliance. Patient has leukocytosis. Blood cultures pending. Blood pressure improved with treatment/pain control. pt initiated on zosyn, vancomycin. patient is agreeable to admission. dr. reyes is agreeable to admission and care plan. Dr. gagnon accepted patient. - Lab Data Result diagrams: 10/31/20 21:20 10/31/20 21:20 Lab Results 10/31/20 10/31/20 10/31/20 Range/Units 21:20 21:20 21:20 WBC 16.6 H (3.8-10.6) k/uL RBC 3.87 L (4.30-5.90) m/uL Hgb 13.0 (13.0-17.5) gm/dL Hct 36.3 L (39.0-53.0) % MCV 93.9 (80.0-100.0) fL MCH 33.6 (25.0-35.0) pg MCHC 35.8 (31.0-37.0) g/dL RDW 12.3 (11.5-15.5) % Plt Count 192 (150-450) k/uL MPV 7.5 Neutrophils % 85 % Lymphocytes % 6 % Monocytes % 5 % Eosinophils % 1 % Basophils % 1 % Neutrophils # 14.2 H (1.3-7.7) k/uL Lymphocytes # 0.9 L (1.0-4.8) k/uL Monocytes # 0.8 (0-1.0) k/uL Eosinophils # 0.1 (0-0.7) k/uL Basophils # 0.2 (0-0.2) k/uL Sodium 132 L (137-145) mmol/L Potassium 3.6 (3.5-5.1) mmol/L Chloride 103 (98-107) mmol/L Carbon Dioxide 27 (22-30) mmol/L Anion Gap 2 mmol/L BUN 10 (9-20) mg/dL Creatinine 0.97 (0.66-1.25) mg/dL Est GFR (CKD-EPI)AfAm >90 (>60 ml/min/1.73 sqM) Est GFR (CKD-EPI)NonAf >90 (>60 ml/min/1.73 sqM) Glucose 141 H (74-99) mg/dL Plasma Lactic Acid Moody 1.4 (0.7-2.0) mmol/L Calcium 7.9 L (8.4-10.2) mg/dL Total Bilirubin 0.4 (0.2-1.3) mg/dL AST 65 H (17-59) U/L ALT 74 H (4-49) U/L Alkaline Phosphatase 97 (38-126) U/L Total Protein 5.9 L (6.3-8.2) g/dL Albumin 2.7 L (3.5-5.0) g/dL Disposition Clinical Impression: Failure of outpatient treatment, Cellulitis of left foot, Leukocytosis Disposition: ADMITTED IP TO THIS HOSP Condition: Stable Is patient prescribed a controlled substance at d/c from ED?: No Referrals: None,Stated [Primary Care Provider] - 1-2 days Time of Disposition: 22:14 Decision to Admit Reason: Admit from EC Decision Date: 10/31/20 Decision Time: 22:14
[2020-10-31] MEDS ORDERED: VANCOMYCIN 1,250 MG in SODIUM CHLORIDE 0.9% 250 ML IVPB STA (21:23)
[2020-10-31] MEDS: SODIUM CHLORIDE 0.9% 1,000 ML IV SCH (21:40)
[2020-10-31 21:43] LABS: Basophils # (A) 0.2 k/uL (0-0.2); Basophils % (A) 1 %; Eosinophils # (A) 0.1 k/uL (0-0.7); Eosinophils % (A) 1 %; HCT 36.3 % (39.0-53.0); Lymphocytes # (A) 0.9 k/uL (1.0-4.8); Lymphocytes % (A) 6 %; MCH 33.6 pg (25.0-35.0); MCHC 35.8 g/dL (31.0-37.0); MCV 93.9 fL (80.0-100.0); Mean Platelet Volume 7.5; Monocytes # (A) 0.8 k/uL (0-1.0); Monocytes % (A) 5 %; Neutrophils # (A) 14.2 k/uL (1.3-7.7); Neutrophils % (A) 85 %; Platelet Count 192 k/uL (150-450); RBC 3.87 m/uL (4.30-5.90); RDW 12.3 % (11.5-15.5); WBC 16.6 k/uL (3.8-10.6)
[2020-10-31] MEDS: ACETAMINOPHEN TAB 325 MG TAB PO PRN (21:43)
--- NOTE | 2020-10-31 21:43 | XR ---
RESULT: HISTORY: cellulitis TECHNIQUE: 3 views of the left foot were obtained. COMPARISON: None. FINDINGS: There is no acute fracture or dislocation. The visualized joint spaces are preserved. No radiographic evidence of osteomyelitis or soft tissue gas. There is soft tissue irregularity of the lateral aspec t, overlying the fifth metatarsal. Retained/remnant screw overlying the distal tibia is seen. IMPRESSION: Soft tissue irregularity at the lateral aspect of the forefoot, suggestive of ulcer. No radiographic evidence for osteomyelitis or soft tissue gas
[2020-10-31] MEDS: HYDROmorphone 0.5 MG/0.5 ML SYRINGE IVP PRN ×2 (21:48→23:58)
[2020-10-31] MEDS ORDERED: BACITRACIN OINT 1 EACH PACKET TOPICAL ONE (21:53)
[2020-10-31 22:03] LABS: ALT 74 U/L (4-49); AST 65 U/L (17-59); African American GFR (CKD) >90 (>60 ml/min/1.73 sqM); Albumin 2.7 g/dL (3.5-5.0); Alkaline Phosphatase 97 U/L (38-126); Anion Gap 2 mmol/L; Blood Urea Nitrogen 10 mg/dL (9-20); Calcium 7.9 mg/dL (8.4-10.2); Carbon Dioxide 27 mmol/L (22-30); Chloride 103 mmol/L (98-107); Glucose 141 mg/dL (74-99); Non-African American GFR(CKD) >90 (>60 ml/min/1.73 sqM); Potassium 3.6 mmol/L (3.5-5.1); Sodium 132 mmol/L (137-145); Total Bilirubin 0.4 mg/dL (0.2-1.3); Total Protein 5.9 g/dL (6.3-8.2)
[2020-10-31] MEDS: PIPERACILLIN-TAZOBACTAM 3.375 GM in SODIUM CHLORIDE 0.9% 100 ML IVPB SCH (23:57)
--- NOTE | 2020-11-01 01:23 | P.HPIM ---
History of Present Illness H&P Date: 10/31/20 Chief Complaint: worsening left foot infection 35 year old male with hypertension , homeless, and IVDA patient comes in after worsening swelling and pain in his left foot. he is homeless and has been walking a lot. he denies any fever but admits to chills and generalized fatigue. his symptoms started Sunday with a blister over the lateral aspect of his left foot. he noticed erythema and swelling extending to his lower leg. he came to the ED and had I&D done about Sunday , given some antibiotics pills, and a prescription for bactrim that he did not fill, he however, took the pills that was given to him in the ED. however over past two days since the I&D he noticed increase swelling in his left foot, drainage, but improvement in the erythema. the foot is also very painful to walk on. he admits to skin popping with cocain, last use was yesterday, to help get the edge off the pain, he denies any other drugs of abuse. he noticed swelling and tendernees over the injection site over the left forearm, and showed me another area of swelling over his right forearm that has been there for over a month now secondary to cocaine use . he denies any other syptoms of headache, URI , or GI symptoms patient denies alcohol use or any other drug of abuse at this time , except for cocaine Review of Systems Pertinent positives as noted in HPI. All other systems were reviewed and are negative Past Medical History Past Medical History: Hypertension Additional Past Medical History / Comment(s): hx migraines History of Any Multi-Drug Resistant Organisms: None Reported Past Surgical History: No Surgical Hx Reported Additional Past Surgical History / Comment(s): fx Tibia and fibula, I&D t esticle, Past Anesthesia/Blood Transfusion Reactions: No Reported Reaction Past Psychological History: ADD/ADHD, Anxiety, Depression Smoking Status: Current every day smoker Past Alcohol Use History: None Reported Past Drug Use History: Cocaine, Marijuana - Past Family History Mother Family Medical History: Cancer Additional Family Medical History / Comment(s): cervical cancer Father Family Medical History: Cancer Additional Family Medical History / Comment(s): Father in 1997 from lung and liver cancer Medications and Allergies Home Medications Medication Instructions Recorded Confirmed Type lisinopriL 40 mg PO DAILY #30 tab 10/27/20 10/31/20 Rx Ibuprofen [Motrin Ib] 600 mg PO Q8H PRN 10/31/20 10/31/20 History Allergies Allergy/AdvReac Type Severity Reaction Status Date / Time No Known Allergies Allergy Verified 10/31/20 21:28 Physical Exam Vitals: Vital Signs Temp Pulse Pulse Resp BP BP Pulse Ox 10/31/20 23:40 98 16 10/31/20 22:26 98.4 F 98 16 198/113 100 10/31/20 22:04 111 H 18 157/89 100 10/31/20 21:49 109 H 18 174/97 100 10/31/20 20:56 99.1 F 111 H 20 210/123 99 Intake and Output 10/31/20 10/31/20 11/01/20 14:59 22:59 06:59 Other: Voiding Method Toilet Urinal Weight 74.389 kg Constitutional: No acute distress, conversant, pleasant Eyes: Anicteric sclerae, moist conjunctiva, Pupils equal round reactive to light ENMT: NC/AT Oropharynx clear, no erythema, or exudates Neck: Supple, FROM, no masses, or JVD No carotid bruits No thyromegaly Lungs: Clear to auscultation Clear to percussion Normal respiratory effort, no accessory muscle use Cardiovascular: Heart regular in rate and rhythm, No murmurs, gallops, or rubs No peripheral edema Abdominal: Soft Nontender, no guarding, rebound or rigidity Abdomen moving with respiration Normoactive bowel sounds No hepatomegaly, No splenomegaly No palpable mass No abdominal wall hernia noted Skin: Surgical dressing over left foot, looks dry clean and intact. no erythema over the visible portion of the skin, no swelling over the leg, capillary refill immediate over the left toes. there is nodular lesions over the ventral surface of proximal forearm bilaterally , tender to the touch, with slight erythema no induration over the left nodular lesion otherwise , Normal temperature, tone, texture, turgor Extremities: No digital cyanosis No clubbing Pedal pulses intact and symmetrical Radial pulses intact and symmetrical No calf tenderness Psychiatric: Alert and oriented to person, place and time Appropriate affect fair judgement Neuro Muscles Strength 5/5 in all 4 extremities Sensation to light touch grossly present throughout Cranial nerves II-XII grossly intact No focal sensory deficits Lymphatics: no palpable cervical or supraclavicular , or inguinal lymph nodes Results CBC & Chem 7: 10/31/20 21:20 10/31/20 21:20 Labs: Abnormal Lab Results - Last 24 Hours (Table) 10/31/20 10/31/20 Range/Units 21:20 21:20 WBC 16.6 H (3.8-10.6) k/uL RBC 3.87 L (4.30-5.90) m/uL Hct 36.3 L (39.0-53.0) % Neutrophils # 14.2 H (1.3-7.7) k/uL Lymphocytes # 0.9 L (1.0-4.8) k/uL Sodium 132 L (137-145) mmol/L Glucose 141 H (74-99) mg/dL Calcium 7.9 L (8.4-10.2) mg/dL AST 65 H (17-59) U/L ALT 74 H (4-49) U/L Total Protein 5.9 L (6.3-8.2) g/dL Albumin 2.7 L (3.5-5.0) g/dL Thrombosis Risk Factor Assmnt - Choose All That Apply Any of the Below Risk Factors Present?: No Other Risk Factors: No Other congenital or acquired thrombophilia - If yes, enter type in comment: No Thrombosis Risk Factor Assessment Level: Very Low Risk Assessment and Plan Assessment: sepsis with cellulitis , failed OP therapy , with non compliance follow up cultures pain control IVF hydration empiric antibiotics hypertensive urgency , medical non compliance clonidine PRN resume lisinopril cocaine abuse tobacco smoking patient couseled to abstain from drug abuse nicotine replacement therapy offered CODE STATUS:full code DVT prophylaxis:heparin Discussed with: Patient, ER, rn Anticipated length of stay > than [address]: home A total of 75 minutes was spent on the care of this complex patient more than 50% of the time was spent in counseling and care coordination.
[2020-11-01] MEDS ORDERED: cloNIDine HCL 0.2 MG TAB PO PRN (02:00)
[2020-11-01] MEDS: SODIUM CHLORIDE 0.9% 1,000 ML IV SCH (04:45)
[2020-11-01 05:51] LABS: Basophils % (A) 0 %; Eosinophils # (A) 0.3 k/uL (0-0.7); Eosinophils % (A) 3 %; HCT 39.3 % (39.0-53.0); HGB 12.8 gm/dL (13.0-17.5); Lymphocytes # (A) 1.4 k/uL (1.0-4.8); Lymphocytes % (A) 14 %; MCH 31.3 pg (25.0-35.0); MCHC 32.6 g/dL (31.0-37.0); Mean Platelet Volume 7.4; Monocytes # (A) 0.9 k/uL (0-1.0); Monocytes % (A) 8 %; Neutrophils # (A) 7.4 k/uL (1.3-7.7); Neutrophils % (A) 72 %; Platelet Count 204 k/uL (150-450); RBC 4.09 m/uL (4.30-5.90); RDW 12.9 % (11.5-15.5); WBC 10.4 k/uL (3.8-10.6)
[2020-11-01] MEDS: ACETAMINOPHEN TAB 325 MG TAB PO PRN (07:15)
[2020-11-01] MEDS: PIPERACILLIN-TAZOBACTAM 3.375 GM in SODIUM CHLORIDE 0.9% 100 ML IVPB SCH (07:17)
[2020-11-01] MEDS ORDERED: HEPARIN SODIUM,PORCINE 5,000 UNIT/ML 1 ML VIAL SQ SCH (08:00)
[2020-11-01 08:08] VITALS: BP 150/82; PULSE 86; RESP 18; TEMP 98.4
[2020-11-01] MEDS ORDERED: lisinopriL 20 MG TAB PO SCH (09:00)
[2020-11-01 09:28] LABS: African American GFR (CKD) 128.7 (60.0-200.0); Albumin 2.6 g/dL (3.80-4.90); Albumin/Globulin Ratio 1.18 (1.60-3.17); Anion Gap 5.9 mmol/L (4.00-12.00); BUN/Creat Ratio 12.22 Ratio (12.00-20.00); Calcium 7.7 mg/dL (8.7-10.3); Carbon Dioxide 27.1 mmol/L (21.6-31.8); Globulin 2.2 g/dL (1.6-3.3); Potassium 3.6 mmol/L (3.5-5.5); Total Bilirubin 0.3 mg/dL (0.3-1.2); Total Protein 4.8 g/dL (6.2-8.2)
[2020-11-01] MEDS ORDERED: VANCOMYCIN 1,250 MG in SODIUM CHLORIDE 0.9% 250 ML IVPB SCH (10:00)
[2020-11-01 11:35] VITALS: BMI 26.4
--- NOTE | 2020-11-01 18:05 | P.DS ---
Providers Date of admission: 10/31/20 21:52 Expected date of discharge: 11/01/20 Attending physician: Luis oWoten MD Primary care physician: Stated None Hospital Course: Discharge Diagnosis: LEFT AMA Cellulitis with sepsis, failed outpatient therapy Hypertensive urgency Cocaine abuse Tobacco abuse Hospital Course: Patient is a 35-year-old male with history of hypertension, intravenous drug use, and homelessness who presented to the ER secondary to failed outpatient treatment of cellulitis of his left lower extremity. He was initially admitted and started on IV antibiotics. On the morning after admission 11/01/2020 patient became extremely agitated, aggressive, and verbally abusive to staff. Security was called. Patient had IV removed and he left AGAINST MEDICAL ADVICE. I was notified of his departure after patient left the premises. A total of 10 minutes of time were spent preparing this complex discharge summary . Patient Condition at Discharge: Stable Plan - Discharge Summary Discharge Rx Participant: No New Discharge Prescriptions: No Action lisinopriL 40 mg PO DAILY #30 tab Ibuprofen [Motrin Ib] 600 mg PO Q8H PRN PRN Reason: Headache Discharge Medication List lisinopriL 40 mg PO DAILY #30 tab 10/27/20 [Rx] Ibuprofen [Motrin Ib] 600 mg PO Q8H PRN 10/31/20 [History] Follow up Appointment(s)/Referral(s): None,Stated [Primary Care Provider] - 1-2 days Discharge Disposition: Left Against Medical Advice
[2020-11-02] MEDS ORDERED: VANCOMYCIN TROUGH DUE 1 EACH MISC MISCELLANE ONE (09:00)
== END 2020-11-01 10:30 | disposition left against medical advice (07) ==
LOC: EC 20:45 → 5NMEDONC 21:52
PROVIDERS: ADMIT Internal Medicine; ATTEND Internal Medicine
DX: A41.9 Sepsis, unspecified organism (principal); L03.116 Cellulitis of left lower limb; I16.0 Hypertensive urgency; F14.10 Cocaine abuse, uncomplicated; G43.909 Migraine, unspecified, not intractable, without status migrainosus; I10 Essential (primary) hypertension; Z59.0 Homelessness; F32.9 Major depressive disorder, single episode, unspecified; F41.9 Anxiety disorder, unspecified; F90.9 Attention-deficit hyperactivity disorder, unspecified type; F17.200 Nicotine dependence, unspecified, uncomplicated; Z91.14 Patient's other noncompliance with medication regimen; Z91.19 Patient's noncompliance with other medical treatment and regimen; Z53.29 Procedure and treatment not carried out because of patient's decision for other reasons; R45.1 Restlessness and agitation; R45.4 Irritability and anger; Z79.899 Other long term (current) drug therapy; Z80.1 Family history of malignant neoplasm of trachea, bronchus and lung; Z80.0 Family history of malignant neoplasm of digestive organs
CPT/HCPCS: 96376 ×2; 96366 ×2; 96372; 96368; 96365; 96375; 99284; 36415; 80053 ×2; 83605; 85025 ×2; 87040; 73630; G0378 ×2; J2543 ×2; J3370; J0360; J1644; J1170

== ENCOUNTER 2020-11-03 23:34 | Emergency (ER) | payer OTHER ==
[2020-11-03 23:53] VITALS: RESP 18; TEMP 98
[2020-11-04] MEDS ORDERED: LORazepam 2 MG/ML INJ IV PRN (00:02)
[2020-11-04] MEDS ORDERED: KETOROLAC 15 MG/ML 1 ML VIAL IVP STA (00:02)
[2020-11-04] MEDS ORDERED: SODIUM CHLORIDE 0.9% 1,000 ML IV STA (00:02)
[2020-11-04] MEDS ORDERED: MORPHINE SULFATE 4 MG/ML SYRINGE IVP STA (00:02)
[2020-11-04] MEDS ORDERED: LORazepam 2 MG/ML INJ IV STA (00:02)
[2020-11-04] MEDS ORDERED: MORPHINE SULFATE 4 MG/ML SYRINGE IVP PRN (00:02)
[2020-11-04] MEDS ORDERED: VANCOMYCIN IV PER PHARMACY 1 EACH MISC MISCELLANE PRN (00:02)
--- NOTE | 2020-11-04 00:04 | ED ---
Recheck HPI - General Chief Complaint: Skin/Abscess/Foreign Body Stated Complaint: Infection in foot and hands Time Seen by Provider: 11/03/20 23:56 Source: patient, RN notes reviewed, old records reviewed Mode of arrival: ambulatory Limitations: no limitations - History of Present Illness Initial Comments: This is a 35-year-old male presents today for evaluation. Patient is very ornery combative and histrionic throughout ER stay. Has likely secondary infections IV drug abuse of both foot as well as different areas in his hand. Patient was admitted as an inpatient and signed out AGAINST MEDICAL ADVICE. Agitated here in the ER. MD Complaint: wound re-check, other (Recheck of infections) -: days(s) Returns Today for: persistent/worsening pain related to initial visit Associated Symptoms: none Treatments Prior to Arrival: other medications (Patient was given antibiotics), Given Antibiotics on - Related Data Home Medications Medication Instructions Recorded Confirmed Ibuprofen [Motrin Ib] 600 mg PO Q8H PRN 10/31/20 10/31/20 Previous Rx's Medication Instructions Recorded lisinopriL 40 mg PO DAILY #30 tab 10/27/20 Allergies Allergy/AdvReac Type Severity Reaction Status Date / Time No Known Allergies Allergy Verified 11/03/20 23:53 Review of Systems ROS Statement: Those systems with pertinent positive or pertinent negative responses have been documented in the HPI. ROS Other: All systems not noted in ROS Statement are negative. Past Medical History Past Medical History: Hypertension Additional Past Medical History / Comment(s): hx migraines History of Any Multi-Drug Resistant Organisms: None Reported Past Surgical History: No Surgical Hx Reported Additional Past Surgical History / Comment(s): fx Tibia and fibula, I&D testicle, Past Anesthesia/Blood Transfusion Reactions: No Reported Reaction Past Psychological History: ADD/ADHD, Anxiety, Depression Smoking Status: Current every day smoker Past Alcohol Use History: None Reported Past Drug Use History: Cocaine, Marijuana - Past Family History Mother Family Medical History: Cancer Additional Family Medical History / Comment(s): cervical cancer Father Family Medical History: Cancer Additional Family Medical History / Comment(s): Father in 1997 from lung and liver cancer General Exam - General Exam Comments Initial Comments: Patient does have persistent cellulitis and also on the left foot as well as new cellulitis is on the hand Limitations: no limitations General appearance: alert, in no apparent distress Head exam: Present: atraumatic, normocephalic, normal inspection Eye exam: Present: normal appearance, PERRL, EOMI. Absent: scleral icterus, conjunctival injection, periorbital swelling ENT exam: Present: normal exam, mucous membranes moist Neck exam: Present: normal inspection. Absent: tenderness, meningismus, lymphadenopathy Respiratory exam: Present: normal lung sounds bilaterally. Absent: respiratory distress, wheezes, rales, rhonchi, stridor Cardiovascular Exam: Present: regular rate, normal rhythm, normal heart sounds. Absent: systolic murmur, diastolic murmur, rubs, gallop, clicks GI/Abdominal exam: Present: soft, normal bowel sounds. Absent: distended, tenderness, guarding, rebound, rigid Extremities exam: Present: normal inspection, full ROM, normal capillary refill. Absent: tenderness, pedal edema, joint swelling, calf tenderness Back exam: Present: normal inspection Neurological exam: Present: alert, oriented X3, CN II-XII intact Psychiatric exam: Present: normal affect, normal mood Skin exam: Present: warm, dry, intact, normal color. Absent: rash Course Vital Signs 11/03/20 11/04/20 23:39 01:50 Temperature 98 F Pulse Rate 117 H 97 Respiratory 18 18 Rate Blood Pressure 209/127 140/75 O2 Sat by Pulse 97 99 Oximetry - Reevaluation(s) Reevaluation #1: 11/04/20 02:51 Medical record is reviewed 11/04/20 02:51 ER and inpatient visit have been reviewed Reevaluation #2: 11/04/20 02:51 Patient angry and combative during yesterday difficult to get IV started to pull out 3 IVs here in the ER patient is made aware that we will not be given any more of these Patient also refused to take oral medications through his water pills across the room Medical Decision Making - Medical Decision Making 35 male to the ER for evaluation of persistent cellulitis. IV drug abuse Disposition Clinical Impression: Hypertensive emergency, Cellulitis of left foot, Blister of left foot Disposition: HOME SELF-CARE Condition: Undetermined Instructions (If sedation given, give patient instructions): Cellulitis (ED) Is patient prescribed a controlled substance at d/c from ED?: No Referrals: None,Stated [Primary Care Provider] - 1-2 days
[2020-11-04] MEDS ORDERED: VANCOMYCIN 1,500 MG in SODIUM CHLORIDE 0.9% 250 ML IVPB STA (00:06)
[2020-11-04] MEDS ORDERED: SULFAMETH-TMP DS STARTER PACK 2 TAB BTL PO STA (02:49)
[2020-11-04] MEDS ORDERED: CEPHALEXIN 500MG STARTER PACK 4 CAP BTL PO STA (02:49)
[2020-11-04] MEDS ORDERED: SULFAMETHOX-TMP 800-160MG 1 EACH TAB PO STA (02:49)
[2020-11-04] MEDS ORDERED: IBUPROFEN 800 MG TAB PO STA (02:49)
[2020-11-04] MEDS ORDERED: CEPHALEXIN 500 MG CAP PO STA (02:49)
[2020-11-04 03:03] VITALS: BP 140/75; PULSE 97
== END 2020-11-04 07:19 | disposition home or self-care (01) ==
LOC: EC 23:34
DX: S90.822A Blister (nonthermal), left foot, initial encounter (principal); L03.116 Cellulitis of left lower limb; L03.119 Cellulitis of unspecified part of limb; I16.1 Hypertensive emergency; F17.200 Nicotine dependence, unspecified, uncomplicated; X58.XXXA Exposure to other specified factors, initial encounter
CPT/HCPCS: 99283

== ENCOUNTER 2021-01-21 00:34 | Emergency (ER) | payer BC, OTHER ==
[2021-01-21 00:40] VITALS: BP 205/125; PULSE 100; RESP 20; TEMP 98.5
--- NOTE | 2021-01-21 00:54 | ED ---
Extremity Problem HPI - General Chief complaint: Extremity Problem,Nontraumatic Stated complaint: Left thumb pain Time Seen by Provider: 01/21/21 00:41 Source: patient Mode of arrival: ambulatory Limitations: no limitations - History of Present Illness Initial comments: 35-year-old male presents emergency Department with chief complaint of left finger injury. Patient states he suffered a small laceration to the left index finger. Patient is not aware how exactly happened. States the tetanus is up-to-date. Pain. Denies numbness or tingling. His report for range of motion finger - Related Data Home Medications Medication Instructions Recorded Confirmed Ibuprofen [Motrin Ib] 600 mg PO Q8H PRN 10/31/20 10/31/20 Previous Rx's Medication Instructions Recorded lisinopriL 40 mg PO DAILY #30 tab 10/27/20 Cephalexin [Keflex] 500 mg PO Q6HR #40 cap 11/04/20 Sulfamethox-Tmp 800-160Mg [Bactrim 2 tab PO BID #40 tab 11/04/20 DS 800-160 mg] Allergies Allergy/AdvReac Type Severity Reaction Status Date / Time No Known Allergies Allergy Verified 01/21/21 00:40 Review of Systems ROS Statement: Those systems with pertinent positive or pertinent negative responses have been documented in the HPI. ROS Other: All systems not noted in ROS Statement are negative. Past Medical History Past Medical History: Hypertension Additional Past Medical History / Comment(s): hx migraines History of Any Multi-Drug Resistant Organisms: None Reported Past Surgical History: No Surgical Hx Reported Additional Past Surgical History / Comment(s): fx Tibia and fibula, I&D testicle, Past Anesthesia/Blood Transfusion Reactions: No Reported Reaction Past Psychological History: ADD/ADHD, Anxiety, Depression Smoking Status: Current every day smoker Past Alcohol Use History: None Reported Past Drug Use History: Cocaine, Marijuana - Past Family History Mother Family Medical History: Cancer Additional Family Medical History / Comment(s): cervical cancer Father Family Medical History: Cancer Additional Family Medical History / Comment(s): Father in 1997 from lung and liver cancer General Exam Limitations: no limitations General appearance: alert, in no apparent distress Head exam: Present: atraumatic, normocephalic, normal inspection Eye exam: Present: normal appearance, PERRL, EOMI Pupils: Present: normal accommodation ENT exam: Present: normal exam, normal oropharynx, mucous membranes moist, TM's normal bilaterally, normal external ear exam Neck exam: Present: normal inspection, full ROM. Absent: tenderness Respiratory exam: Present: normal lung sounds bilaterally. Absent: respiratory distress Cardiovascular Exam: Present: regular rate, normal rhythm, normal heart sounds Extremities exam: Present: full ROM, normal capillary refill. Absent: normal inspection (Very small superficial laceration measuring less than 5 mm located on the lateral aspect of his left second digit. He has full range of motion.), tenderness Back exam: Present: normal inspection, full ROM. Absent: tenderness Neurological exam: Present: alert, oriented X3 Psychiatric exam: Present: normal affect, normal mood Skin exam: Present: warm, dry, intact, normal color Course Vital Signs 01/21/21 00:36 Temperature 98.5 F Pulse Rate 100 Respiratory 20 Rate Blood Pressure 205/125 O2 Sat by Pulse 97 Oximetry Medical Decision Making - Medical Decision Making 35-year-old male presents to emergency department with a complaint of laceration to finger. On physical examination, no suturing is necessary. This is superficial and very small. Bacitracin was applied to the small laceration region. adivsed to follow up with PCP. return to ED if symptoms worsen. Disposition Clinical Impression: Laceration Disposition: HOME SELF-CARE Condition: Stable Instructions (If sedation given, give patient instructions): Laceration (DC) Additional Instructions: Apply bacitracin to lacerated site. Return to emergency department if symptoms worsen. Is patient prescribed a controlled substance at d/c from ED?: No Referrals: Emily Badillo MD [Primary Care Provider] - 1-2 days Time of Disposition: 01:23
[2021-01-21] MEDS ORDERED: BACITRACIN OINT 1 EACH PACKET TOPICAL ONE (01:05)
== END 2021-01-21 01:45 | disposition home or self-care (01) ==
LOC: EC 00:34
DX: S61.211A Laceration without foreign body of left index finger without damage to nail, initial encounter (principal); F17.200 Nicotine dependence, unspecified, uncomplicated; I10 Essential (primary) hypertension; F41.9 Anxiety disorder, unspecified; F32.9 Major depressive disorder, single episode, unspecified; F12.90 Cannabis use, unspecified, uncomplicated; F14.90 Cocaine use, unspecified, uncomplicated; Z79.1 Long term (current) use of non-steroidal anti-inflammatories (NSAID); X58.XXXA Exposure to other specified factors, initial encounter
CPT/HCPCS: 99283

== ENCOUNTER 2021-01-26 21:29 | Emergency (ER) | payer OTHER ==
[2021-01-26] MEDS ORDERED: LABETALOL 5 MG/ML VIAL MDV IVP STA (22:02)
[2021-01-26] MEDS ORDERED: SODIUM CHLORIDE 0.9% 1,000 ML IV ONE (22:06)
[2021-01-26] MEDS ORDERED: cloNIDine HCL 0.1 MG TAB PO STA (22:20)
--- NOTE | 2021-01-26 22:26 | ED ---
General Adult HPI - General Chief complaint: Recheck/Abnormal Lab/Rx Stated complaint: L thumb injury, Toe injury Time Seen by Provider: 01/26/21 21:50 Source: patient, RN notes reviewed Mode of arrival: ambulatory Limitations: no limitations - History of Present Illness Initial comments: 35-year-old male presents emergency Department chief complaint of hypertension. Patient states that his medications. Patient states that his uncle is an alcoholic and states that he cannot go back to his house tonight so he decided just to come to the emergency department. Patient is not suicidal or homicidal. Patient states that he has cramps in his feet from moisture. Patient states that he does want some powder but has not use. No other complaints. No chest pain shortness breath headache dizziness nausea vomiting. - Related Data Previous Rx's Medication Instructions Recorded lisinopriL 40 mg PO DIRECTED #14 tab 01/26/21 Allergies Allergy/AdvReac Type Severity Reaction Status Date / Time No Known Allergies Allergy Verified 01/26/21 22:37 Review of Systems ROS Statement: Those systems with pertinent positive or pertinent negative responses have been documented in the HPI. ROS Other: All systems not noted in ROS Statement are negative. Past Medical History Past Medical History: Hypertension Additional Past Medical History / Comment(s): hx migraines History of Any Multi-Drug Resistant Organisms: None Reported Past Surgical History: No Surgical Hx Reported Additional Past Surgical History / Comment(s): fx Tibia and fibula, I&D testicle, Past Anesthesia/Blood Transfusion Reactions: No Reported Reaction Past Psychological History: ADD/ADHD, Anxiety, Depression Smoking Status: Current every day smoker Past Alcohol Use History: None Reported Past Drug Use History: Cocaine, Marijuana - Past Family History Mother Family Medical History: Cancer Additional Family Medical History / Comment(s): cervical cancer Father Family Medical History: Cancer Additional Family Medical History / Comment(s): Father in 1997 from lung and liver cancer General Exam Limitations: no limitations General appearance: alert, in no apparent distress Head exam: Present: atraumatic, normocephalic, normal inspection Eye exam: Present: normal appearance, PERRL, EOMI. Absent: scleral icterus, conjunctival injection, periorbital swelling ENT exam: Present: normal exam, normal oropharynx, mucous membranes moist Neck exam: Present: normal inspection, full ROM. Absent: tenderness, meningismus, lymphadenopathy Respiratory exam: Present: normal lung sounds bilaterally. Absent: respiratory distress, wheezes, rales, rhonchi, stridor Cardiovascular Exam: Present: normal rhythm, tachycardia, normal heart sounds. Absent: systolic murmur, diastolic murmur, rubs, gallop, clicks Extremities exam: Present: other (wet feet are noted, some small blisters, large cracks noted) Neurological exam: Present: alert, oriented X3 Skin exam: Present: warm, dry, intact, normal color. Absent: rash Course Vital Signs 01/26/21 01/26/21 01/26/21 21:32 22:01 23:15 Temperature 97.5 F L Pulse Rate 111 H 111 H Respiratory 20 20 Rate Blood Pressure 207/125 229/133 201/114 O2 Sat by Pulse 99 97 Oximetry Medical Decision Making - Medical Decision Making Patient has a history of hypertension he is asymptomatic. Patient's blood pressure medications were given patient discharged stable condition. Patient was ordered IV medications patient refused became very angry with staff and refused any other work or testing. Disposition Clinical Impression: Hypertension Disposition: HOME SELF-CARE Condition: Stable Instructions (If sedation given, give patient instructions): Hypertension (ED) Additional Instructions: Please return to the Emergency Department if symptoms worsen or any other concerns. Prescriptions: lisinopriL 40 mg PO DIRECTED #14 tab Is patient prescribed a controlled substance at d/c from ED?: No Referrals: None,Stated [Primary Care Provider] - 1-2 days Time of Disposition: 23:37
[2021-01-26] MEDS ORDERED: lisinopriL 20 MG TAB PO STA (23:36)
[2021-01-26 23:59] VITALS: BP 185/105; PULSE 72; RESP 18; TEMP 97.2
== END 2021-01-26 23:52 | disposition home or self-care (01) ==
LOC: EC 21:29
DX: I10 Essential (primary) hypertension (principal); R25.2 Cramp and spasm; G43.909 Migraine, unspecified, not intractable, without status migrainosus; F14.90 Cocaine use, unspecified, uncomplicated; F12.90 Cannabis use, unspecified, uncomplicated; F32.9 Major depressive disorder, single episode, unspecified; F41.9 Anxiety disorder, unspecified; F90.9 Attention-deficit hyperactivity disorder, unspecified type; F17.200 Nicotine dependence, unspecified, uncomplicated
CPT/HCPCS: 99284

== ENCOUNTER 2021-02-13 04:21 | Emergency (ER) | payer OTHER ==
[2021-02-13 04:55] VITALS: TEMP 97.8
[2021-02-13] MEDS ORDERED: LORazepam 2 MG/ML INJ IV STA (05:21)
--- NOTE | 2021-02-13 05:28 | ED ---
Headache HPI - General Mode of arrival: ambulatory Limitations: no limitations - History of Present Illness Complaint: headache Onset/Timin -: hour(s) Onset Description: gradual Location: diffuse Severity: severe Quality: worst headache of life Consistency: constant Improves With: nothing Worsens With: none Context: occurred at rest Associated Symptoms: nausea, vomiting Treatments Prior to Arrival: none <AyalachandraAndrew - Last Filed: 02/13/21 05:26> <Deysi Pearson - Last Filed: 02/13/21 08:55> - General Chief Complaint: Headache Stated Complaint: Headache - Related Data Previous Rx's Medication Instructions Recorded lisinopriL 40 mg PO DIRECTED #14 tab 01/26/21 Allergies Allergy/AdvReac Type Severity Reaction Status Date / Time No Known Allergies Allergy Verified 02/13/21 04:55 Review of Systems ROS Other: All systems not noted in ROS Statement are negative. Constitutional: Denies: fever Eyes: Denies: eye pain, vision change ENT: Denies: ear pain, congestion Respiratory: Denies: cough, dyspnea Cardiovascular: Denies: chest pain, syncope Gastrointestinal: Reports: nausea, vomiting. Denies: abdominal pain, diarrhea Genitourinary: Denies: dysuria Musculoskeletal: Denies: back pain Skin: Denies: rash Neurological: Reports: headache. Denies: weakness, numbness, paresthesias, confusion <JodiAndrew - Last Filed: 02/13/21 05:26> ROS Other: All systems not noted in ROS Statement are negative. <Deysi Pearson - Last Filed: 02/13/21 08:55> ROS Statement: Those systems with pertinent positive or pertinent negative responses have been documented in the HPI. Past Medical History Past Medical History: Hypertension Additional Past Medical History / Comment(s): hx migraines History of Any Multi-Drug Resistant Organisms: None Reported Past Surgical History: No Surgical Hx Reported Additional Past Surgical History / Comment(s): fx Tibia and fibula, I&D testicle, Past Anesthesia/Blood Transfusion Reactions: No Reported Reaction Past Psychological History: ADD/ADHD, Anxiety, Depression Smoking Status: Current every day smoker Past Alcohol Use History: None Reported Past Drug Use History: Cocaine, Marijuana - Past Family History Mother Family Medical History: Cancer Additional Family Medical History / Comment(s): cervical cancer Father Family Medical History: Cancer Additional Family Medical History / Comment(s): Father in 1997 from lung and liver cancer <Andrew Zapata - Last Filed: 02/13/21 05:26> General Exam Limitations: no limitations General appearance: alert, in no apparent distress Head exam: Present: atraumatic, normocephalic Eye exam: Present: normal appearance, PERRL, EOMI. Absent: scleral icterus, conjunctival injection, nystagmus ENT exam: Present: mucous membranes dry Neck exam: Present: normal inspection, full ROM. Absent: tenderness, meningismus Respiratory exam: Present: normal lung sounds bilaterally. Absent: respiratory distress, wheezes, rales, rhonchi, stridor Cardiovascular Exam: Present: regular rate, normal rhythm, normal heart sounds. Absent: systolic murmur, diastolic murmur, rubs, gallop GI/Abdominal exam: Present: soft. Absent: distended, tenderness, guarding, rebound, rigid, mass Extremities exam: Present: normal inspection, normal capillary refill. Absent: pedal edema, calf tenderness Back exam: Present: normal inspection. Absent: CVA tenderness (R), CVA tenderness (L) Neurological exam: Present: alert, oriented X3, CN II-XII intact. Absent: motor sensory deficit Skin exam: Present: warm, dry, intact, normal color. Absent: rash <Andrew Zapata - Last Filed: 02/13/21 05:26> Course Vital Signs 02/13/21 02/13/21 02/13/21 04:51 06:06 06:15 Temperature 97.8 F Pulse Rate 84 85 Respiratory 18 16 12 Rate Blood Pressure 211/132 187/114 O2 Sat by Pulse 98 95 Oximetry 02/13/21 07:00 Temperature Pulse Rate Respiratory Rate Blood Pressure 215/135 O2 Sat by Pulse Oximetry Medical Decision Making - Lab Data Result diagrams: 02/13/21 05:26 02/13/21 05:26 <Deysi Pearson - Last Filed: 02/13/21 08:55> - Medical Decision Making 35-year-old male presents to ER for concern for headache and nausea. Patient was transferred care to ut Dr. Zapata. He was given Ativan the after history of methamphetamine and heroin binge for the past 2 days. Patient's computed tomography scan of the brain showed no evidence of acute intracranial changes. Patient then became difficult to arouse after Ativan and was given 0.2mg Narcan. Patient then did become more arousable. He became hostile and uncooperative with staff. Requiring 2mg IM ativan. He states that he wants to have his mother come pick him up. He has been unsteady and required to be redirected multiple times to go back to bed. Patient ripped out IV, and refusing any further IV or intervention. Patient states he will leave AMA and with his mother. Patient mother contacted and will pick the patient up, patient and mother is aware that he will be leaving AMA with uncontrolled blood pressure. Patient mother reports he has been behaving like this often, and he is currently homeless. Patient mother picked him up and he is ambulatory, alert. (Deysi Pearson) - Lab Data Lab Results 02/13/21 02/13/21 02/13/21 Range/Units 05:26 05:26 05:26 WBC 8.7 (3.8-10.6) k/uL RBC 4.00 L (4.30-5.90) m/uL Hgb 12.6 L (13.0-17.5) gm/dL Hct 36.7 L (39.0-53.0) % MCV 91.9 (80.0-100.0) fL MCH 31.5 (25.0-35.0) pg MCHC 34.3 (31.0-37.0) g/dL RDW 14.2 (11.5-15.5) % Plt Count 279 (150-450) k/uL MPV 7.4 Neutrophils % 75 % Lymphocytes % 13 % Monocytes % 6 % Eosinophils % 3 % Basophils % 0 % Neutrophils # 6.5 (1.3-7.7) k/uL Lymphocytes # 1.1 (1.0-4.8) k/uL Monocytes # 0.6 (0-1.0) k/uL Eosinophils # 0.3 (0-0.7) k/uL Basophils # 0.0 (0-0.2) k/uL Sodium 135 L (137-145) mmol/L Potassium 3.3 L (3.5-5.1) mmol/L Chloride 101 (98-107) mmol/L Carbon Dioxide 26 (22-30) mmol/L Anion Gap 8 mmol/L BUN 25 H (9-20) mg/dL Creatinine 1.29 H (0.66-1.25) mg/dL Est GFR (CKD-EPI)AfAm 83 (>60 ml/min/1.73 sqM) Est GFR (CKD-EPI)NonAf 72 (>60 ml/min/1.73 sqM) Glucose 100 H (74-99) mg/dL Calcium 8.3 L (8.4-10.2) mg/dL Urine Opiates Screen Not Detected (NotDetected) Ur Oxycodone Screen Not Detected (NotDetected) Urine Methadone Screen Not Detected (NotDetected) Ur Propoxyphene Screen Not Detected (NotDetected) Ur Barbiturates Screen Not Detected (NotDetected) U Tricyclic Antidepress Not Detected (NotDetected) Ur Phencyclidine Scrn Not Detected (NotDetected) Ur Amphetamines Screen Not Detected (NotDetected) U Methamphetamines Scrn Detected H (NotDetected) U Benzodiazepines Scrn Not Detected (NotDetected) Urine Cocaine Screen Not Detected (NotDetected) U Marijuana (THC) Screen Not Detected (NotDetected) Serum Alcohol <10 mg/dL Disposition <Andrew Zapata - Last Filed: 02/13/21 05:26> Is patient prescribed a controlled substance at d/c from ED?: No Time of Disposition: 08:01 <Deysi Pearson - Last Filed: 02/13/21 08:55> Clinical Impression: Methamphetamine abuse, Headache Disposition: Left Against Medical Advice Condition: Stable Referrals: None,Stated [Primary Care Provider] - 1-2 days
[2021-02-13 05:43] LABS: Basophils % (A) 0 %; Eosinophils # (A) 0.3 k/uL (0-0.7); Eosinophils % (A) 3 %; HCT 36.7 % (39.0-53.0); HGB 12.6 gm/dL (13.0-17.5); Lymphocytes # (A) 1.1 k/uL (1.0-4.8); Lymphocytes % (A) 13 %; MCH 31.5 pg (25.0-35.0); MCHC 34.3 g/dL (31.0-37.0); MCV 91.9 fL (80.0-100.0); Mean Platelet Volume 7.4; Monocytes # (A) 0.6 k/uL (0-1.0); Monocytes % (A) 6 %; Neutrophils # (A) 6.5 k/uL (1.3-7.7); Neutrophils % (A) 75 %; Platelet Count 279 k/uL (150-450); RDW 14.2 % (11.5-15.5); WBC 8.7 k/uL (3.8-10.6)
[2021-02-13 05:56] LABS: Amphetamine Screen,Urine Not Detected (NotDetected); Barbiturate Screen,Urine Not Detected (NotDetected); Benzodiazepines Screen,Urine Not Detected (NotDetected); Cocaine Screen,Urine Not Detected (NotDetected); Methadone Screen, Urine Not Detected (NotDetected); Opiate Screen,Urine Not Detected (NotDetected); Oxycodone Screen, Urine Not Detected (NotDetected); Phencyclidine Screen,Urine Not Detected (NotDetected); Tricyclic Antidepressant,Urine Not Detected (NotDetected); Urn Cannabinoid Scrn Not Detected (NotDetected)
[2021-02-13 05:58] LABS: African American GFR (CKD) 83 (>60 ml/min/1.73 sqM); Alcohol <10 mg/dL; Anion Gap 8 mmol/L; Blood Urea Nitrogen 25 mg/dL (9-20); Calcium 8.3 mg/dL (8.4-10.2); Carbon Dioxide 26 mmol/L (22-30); Chloride 101 mmol/L (98-107); Glucose 100 mg/dL (74-99); Non-African American GFR(CKD) 72 (>60 ml/min/1.73 sqM); Potassium 3.3 mmol/L (3.5-5.1); Sodium 135 mmol/L (137-145)
--- NOTE | 2021-02-13 06:02 | CT ---
EXAM: CT Head Without Intravenous Contrast CLINICAL HISTORY: ITS.REASON CT Reason: headache TECHNIQUE: Axial computed tomography images of the head/brain without intravenous contrast. CTDI is 49.27 mGy and DLP is 1086.4 mGy-cm. This CT exam was performed using one or more of the following dose reduction techniques: automated exposure control, adjustment of the mA and/or kV according to patient size, and/or use of iterative reconstruction technique. COMPARISON: 05/22/2020 FINDINGS: Brain: No hemorrhage or mass effect. Ventricles: No hydrocephalus. Bones/joints: Unremarkable. Soft tissues: Unremarkable. Sinuses: Minimal left maxillary sinus mucosal thickening. Mastoid air cells: Clear. IMPRESSION: No acute hemorrhage, hydrocephalus, or mass effect.
[2021-02-13 06:07] VITALS: PULSE 85
[2021-02-13] MEDS ORDERED: NALOXONE 0.4 MG/ML 1 ML VIAL IVP STA (06:13)
[2021-02-13] MEDS ORDERED: ENALAPRILAT 1.25 MG/ML 1 ML VIAL IVP STA (06:15)
[2021-02-13 06:24] VITALS: RESP 12
[2021-02-13] MEDS ORDERED: LORazepam 2 MG/ML INJ IM STA (07:00)
[2021-02-13 07:10] VITALS: BP 215/135
[2021-02-13] MEDS ORDERED: cloNIDine HCL 0.1 MG TAB PO STA (08:08)
== END 2021-02-13 08:53 | disposition left against medical advice (07) ==
LOC: EC 04:21
DX: F15.10 Other stimulant abuse, uncomplicated (principal); G43.909 Migraine, unspecified, not intractable, without status migrainosus; I10 Essential (primary) hypertension; F41.9 Anxiety disorder, unspecified; F32.9 Major depressive disorder, single episode, unspecified; F17.200 Nicotine dependence, unspecified, uncomplicated; F14.90 Cocaine use, unspecified, uncomplicated; F12.90 Cannabis use, unspecified, uncomplicated
CPT/HCPCS: 36415; 70450; 80048; 80306; 80320; 85025; 96372; 96374; 96375; 99284

== ENCOUNTER 2021-03-02 00:03 | Emergency (ER) | payer OTHER ==
[2021-03-02 00:18] VITALS: RESP 20
[2021-03-02] MEDS ORDERED: AMOXIC-POT CLAV 875MG STARTER PACK 2 TAB BTL PO STA (00:49)
[2021-03-02] MEDS ORDERED: AMOXIC-POT CLAV 875-125MG 1 EACH TAB PO STA (00:49)
--- NOTE | 2021-03-02 00:51 | ED ---
ENT HPI - General Chief complaint: ENT Stated complaint: Ear Pain Time Seen by Provider: 03/02/21 00:22 Source: patient, old records reviewed Mode of arrival: ambulatory Limitations: no limitations - History of Present Illness Initial comments: This is a 35-year-old male DF for evaluation patient Dese for evaluation regards to ear pain bilateral ear pain worse in his left ear. Patient states he does suffer from left ear pain. Also complaining of left ear tenderness. Fevers, no other complaints. Patient denies taking his blood pressure medications as prescribed MD complaint: ear pain -: hour(s) Location: L ear Severity: moderate Severity scale (1-10): 5 Quality: aching Consistency: constant, intermittent Worsens with: none Context-Epistaxis: history of similar Context- Dental: poor dental care Associated Symptoms: cough - Related Data Previous Rx's Medication Instructions Recorded lisinopriL 40 mg PO DIRECTED #14 tab 01/26/21 Amoxic-Pot Clav 875-125Mg 1 tab PO Q12HR #20 tablet 03/02/21 [Augmentin 875-125] Allergies Allergy/AdvReac Type Severity Reaction Status Date / Time No Known Allergies Allergy Verified 03/02/21 00:18 Review of Systems ROS Statement: Those systems with pertinent positive or pertinent negative responses have been documented in the HPI. ROS Other: All systems not noted in ROS Statement are negative. Past Medical History Past Medical History: Hypertension Additional Past Medical History / Comment(s): hx migraines History of Any Multi-Drug Resistant Organisms: None Reported Past Surgical History: No Surgical Hx Reported Additional Past Surgical History / Comment(s): fx Tibia and fibula, I&D testicle, Past Anesthesia/Blood Transfusion Reactions: No Reported Reaction Past Psychological History: ADD/ADHD, Anxiety, Depression Smoking Status: Current every day smoker Past Alcohol Use History: None Reported Past Drug Use History: Cocaine, Marijuana - Past Family History Mother Family Medical History: Cancer Additional Family Medical History / Comment(s): cervical cancer Father Family Medical History: Cancer Additional Family Medical History / Comment(s): Father in 1997 from lung and liver cancer General Exam Limitations: no limitations General appearance: alert, in no apparent distress Head exam: Present: atraumatic, normocephalic, normal inspection Eye exam: Present: normal appearance, PERRL, EOMI. Absent: scleral icterus, conjunctival injection, periorbital swelling ENT exam: Present: normal exam, mucous membranes moist, TM's normal bilaterally (BL cerumen impaction) Neck exam: Present: normal inspection. Absent: tenderness, meningismus, lymphadenopathy Respiratory exam: Present: normal lung sounds bilaterally. Absent: respiratory distress, wheezes, rales, rhonchi, stridor Cardiovascular Exam: Present: regular rate, normal rhythm, normal heart sounds. Absent: systolic murmur, diastolic murmur, rubs, gallop, clicks GI/Abdominal exam: Present: soft, normal bowel sounds. Absent: distended, tenderness, guarding, rebound, rigid Extremities exam: Present: normal inspection, full ROM, normal capillary refill. Absent: tenderness, pedal edema, joint swelling, calf tenderness Back exam: Present: normal inspection Neurological exam: Present: alert, oriented X3, CN II-XII intact Psychiatric exam: Present: normal affect, normal mood Skin exam: Present: warm, dry, intact, normal color. Absent: rash Course Vital Signs 03/02/21 00:14 Temperature 98.0 F Pulse Rate 108 H Respiratory 20 Rate Blood Pressure 219/133 O2 Sat by Pulse 99 Oximetry - Reevaluation(s) Reevaluation #1: 03/02/21 01:00 Medical records reviewed Reevaluation #2: 03/02/21 01:00 Patient will be treated for bilateral cerumen impaction as well as otitis Medical Decision Making - Medical Decision Making 35 male with left otitis externa versus otitis media. Bilateral cerumen impaction, given ER. Instructions and can be discharged home Disposition Clinical Impression: Otitis externa, Otalgia, left ear, Cerumen impaction Disposition: HOME SELF-CARE Condition: Good Instructions (If sedation given, give patient instructions): Cerumen Impaction (ED), Earache (ED) Prescriptions: Amoxic-Pot Clav 875-125Mg [Augmentin 875-125] 1 tab PO Q12HR #20 tablet Is patient prescribed a controlled substance at d/c from ED?: No Referrals: None,Stated [Primary Care Provider] - 1-2 days
[2021-03-02] MEDS ORDERED: CIPROFLOXACIN-DEXAMETH 0.3-0.1% DROPS 7.5 ML BTL LEFT EAR ONE (01:00)
[2021-03-02] MEDS ORDERED: CARBAMIDE PEROXIDE 6.5% DROPS 15 ML BTL BOTH EARS ONE (01:00)
[2021-03-02] MEDS ORDERED: cloNIDine 0.3 MG/24HR PATCH TRANSDERM SCH (01:00)
[2021-03-02 01:41] VITALS: BP 187/101; PULSE 74; TEMP 98.1
== END 2021-03-02 01:39 | disposition home or self-care (01) ==
LOC: EC 00:03
DX: H60.92 Unspecified otitis externa, left ear (principal); H61.23 Impacted cerumen, bilateral; I10 Essential (primary) hypertension; F17.200 Nicotine dependence, unspecified, uncomplicated
CPT/HCPCS: 99282

== ENCOUNTER 2021-03-19 04:24 | Emergency (ER) | payer OTHER ==
[2021-03-19] MEDS ORDERED: SULFAMETHOX-TMP 800-160MG 1 EACH TAB PO STA (05:09)
[2021-03-19] MEDS ORDERED: CEPHALEXIN 500 MG CAP PO STA (05:10)
--- NOTE | 2021-03-19 05:38 | ED ---
Skin/Abscess/FB HPI - General Chief complaint: Skin/Abscess/Foreign Body Stated complaint: cyst on arm Time Seen by Provider: 03/19/21 04:58 Source: patient Mode of arrival: ambulatory - History of Present Illness Initial comments: Patient is 35-year-old man who presents to have evaluation of suspected abscess to right forearm, where he had injected. No systemic symptoms, no fever or chills. No chest pain, dyspnea MD complaint: abscess/boil -: days(s) Tetanus Up to Date: yes Location: RUE Severity: moderate Quality: aching Consistency: constant Improves with: none Worsens with: palpation Context: none Associated symptoms: denies other symptoms Treatments Prior to Arrival: none - Related Data Previous Rx's Medication Instructions Recorded lisinopriL 40 mg PO DIRECTED #14 tab 01/26/21 Amoxic-Pot Clav 875-125Mg 1 tab PO Q12HR #20 tablet 03/02/21 [Augmentin 875-125] Cephalexin [Keflex] 500 mg PO Q6HR #28 cap 03/19/21 Sulfamethox-Tmp 800-160Mg [Bactrim 1 each PO Q12HR #14 tab 03/19/21 Ds] Allergies Allergy/AdvReac Type Severity Reaction Status Date / Time No Known Allergies Allergy Verified 03/19/21 04:31 Review of Systems ROS Statement: Those systems with pertinent positive or pertinent negative responses have been documented in the HPI. ROS Other: All systems not noted in ROS Statement are negative. Constitutional: Denies: fever, chills Respiratory: Denies: cough, dyspnea Cardiovascular: Denies: chest pain, palpitations Skin: Reports: as per HPI, change in color Neurological: Denies: headache, weakness, numbness Hematological/Lymphatic: Denies: easy bleeding Past Medical History Past Medical History: Hypertension Additional Past Medical History / Comment(s): hx migraines History of Any Multi-Drug Resistant Organisms: None Reported Past Surgical History: No Surgical Hx Reported Additional Past Surgical History / Comment(s): fx Tibia and fibula, I&D testicle, Past Anesthesia/Blood Transfusion Reactions: No Reported Reaction Past Psychological History: ADD/ADHD, Anxiety, Depression Smoking Status: Current every day smoker Past Alcohol Use History: None Reported Past Drug Use History: Cocaine, Marijuana - Past Family History Mother Family Medical History: Cancer Additional Family Medical History / Comment(s): cervical cancer Father Family Medical History: Cancer Additional Family Medical History / Comment(s): Father in 1997 from lung and liver cancer General Exam General appearance: alert, in no apparent distress Head exam: Present: atraumatic, normocephalic Eye exam: Present: normal appearance Respiratory exam: Present: normal lung sounds bilaterally. Absent: respiratory distress, wheezes, rales, rhonchi, stridor Cardiovascular Exam: Present: regular rate, normal rhythm, normal heart sounds. Absent: systolic murmur, diastolic murmur, rubs, gallop Right Upper Arm exam: Present: normal inspection, full ROM. Absent: tenderness Elbow exam: Present: normal inspection, full ROM. Absent: tenderness Forearm Wrist exam: Present: full ROM, tenderness, swelling, erythema. Absent: normal inspection, abrasion, laceration, ecchymosis, deformity, crepitus, dislocation Hand Wrist exam: Present: normal inspection, full ROM. Absent: tenderness, swelling Neurological exam: Present: alert. Absent: motor sensory deficit Skin exam: Present: warm, dry, intact, erythema, other (There is approximately 6 cm diameter area of erythema, warmth, induration right forearm dorsal medial aspect). Absent: rash Course Vital Signs 03/19/21 03/19/21 04:29 07:06 Temperature 97.9 F 98.3 F Pulse Rate 118 H 87 Respiratory 19 17 Rate Blood Pressure 200/135 201/107 O2 Sat by Pulse 98 100 Oximetry Procedures - Incision & Drainage Consent Obtained: verbal consent Site: upper extremity Anesthetic Used: lidocaine 1% I&D Cleaning Method: Betadine Sterile Field Used?: Yes Scalpel Used: #11 Needle Aspiration Performed?: No Irrigation Performed?: Yes I&D Drainage Obtained: Pus, Blood Packing: Iodoform Patient Tolerated Procedure: well, no complications Medical Decision Making - Medical Decision Making After discussion of risks and benefits, patient did request to have the area of induration lanced. I stated that there may not be an organized abscess is is not quite fluctuant. See the procedure note. Did obtain a small amount of pus and small amount of blood. Discussed appropriate further care and follow-up as well as return parameters and management of the gauze. All questions answered. After the procedure was performed, patient stated that he was concerned because his urine smelled strong and had a different appearance. In light of this UA is sent and patient requested empiric antibiotics. - Lab Data Lab Results 03/19/21 Range/Units 06:13 Urine Color Yellow Urine Appearance Clear (Clear) Urine pH 6.0 (5.0-8.0) Ur Specific [place] 1.028 (1.001-1.035) Urine Protein 3+ H (Negative) Urine Glucose (UA) Negative (Negative) Urine Ketones Negative (Negative) Urine Blood Small H (Negative) Urine Nitrite Negative (Negative) Urine Bilirubin Negative (Negative) Urine Urobilinogen 2.0 (<2.0) mg/dL Ur Leukocyte Esterase Negative (Negative) Urine RBC 7 H (0-5) /hpf Urine WBC 3 (0-5) /hpf Urine Bacteria Rare H (None) /hpf Hyaline Casts 14 H (0-2) /lpf Urine Mucus Rare H (None) /hpf Disposition Clinical Impression: Abscess Narrative: Possible urinary tract infection Disposition: HOME SELF-CARE Condition: Good Instructions (If sedation given, give patient instructions): Abscess (ED) Prescriptions: Sulfamethox-Tmp 800-160Mg [Bactrim Ds] 1 each PO Q12HR #14 tab Cephalexin [Keflex] 500 mg PO Q6HR #28 cap Is patient prescribed a controlled substance at d/c from ED?: No Referrals: Emily Badillo MD [Primary Care Provider] - 1-2 days
[2021-03-19 06:38] LABS: Appearance,Urine Clear (Clear); Bacteria,Urine Rare /hpf; Bilirubin,Urine Negative (Negative); Blood,Urine Small (Negative); Color,Urine Yellow; Glucose,Urine (UA) Negative (Negative); Hyaline Casts,Urine 14 /lpf (0-2); Ketones,Urine Negative (Negative); Leukocyte Esterase,Urine Negative (Negative); Mucus,Urine Rare /hpf; Nitrite,Urine Negative (Negative); Protein,Urine 3+ (Negative); RBC,Urine 7 /hpf (0-5); Specific Gravity,Urine 1.028 (1.001-1.035); WBC,Urine 3 /hpf (0-5)
[2021-03-19] MEDS ORDERED: cefTRIAXone 250 MG VIAL IM STA (06:46)
[2021-03-19] MEDS ORDERED: AZITHROMYCIN 250 MG TAB PO STA (06:47)
[2021-03-19 07:07] VITALS: BP 201/107; PULSE 87; RESP 17; TEMP 98.3
== END 2021-03-19 07:07 | disposition home or self-care (01) ==
LOC: EC 04:24
DX: L02.413 Cutaneous abscess of right upper limb (principal); I10 Essential (primary) hypertension; F41.9 Anxiety disorder, unspecified; F32.9 Major depressive disorder, single episode, unspecified; F17.200 Nicotine dependence, unspecified, uncomplicated
CPT/HCPCS: 99282; 10060; 96372; 81001; J0696

== ENCOUNTER 2021-03-27 08:48 | Inpatient (IN) | payer OTHER ==
[2021-03-27] MEDS ORDERED: ONDANSETRON 4 MG/2 ML VIAL IVP STA (09:05)
[2021-03-27] MEDS ORDERED: SODIUM CHLORIDE 0.9% 1,000 ML IV STA (09:05)
[2021-03-27] MEDS ORDERED: SODIUM CHLORIDE 0.9% 500 ML 500 ML IV STA (09:05)
[2021-03-27] MEDS ORDERED: KETOROLAC 15 MG/ML 1 ML VIAL IVP STA (09:05)
[2021-03-27] MEDS ORDERED: hydrALAZINE HCL 20 MG/ML 1 ML VIAL IVP STA ×3 (09:06→11:49)
--- NOTE | 2021-03-27 09:08 | ED ---
Abdominal Pain HPI - General Chief Complaint: Abdominal Pain Stated Complaint: Abd Pain/Back Pain Time Seen by Provider: 03/27/21 08:57 Source: patient, RN notes reviewed Mode of arrival: ambulatory Limitations: no limitations - History of Present Illness Initial Comments: This a 35-year-old male presents emergency Department chief complaint of abdominal back pain. Patient states his been going on for last couple days. Patient does admit to nausea vomiting diarrhea no fevers or chills no chest pain or shortness breath patient cannot localize the pain states is just all over states it is worse with movement of his back denies any bowel bladder in continence or retention or saddle anesthesias no lower extremity paresthesias. Patient was recently placed on antibiotics for an abscess to his right arm patient does have a history of hypertension states she is not taking medications in a while. Patient has a long history of drug abuse. Patient states has not used in 2 weeks. - Related Data Home Medications Medication Instructions Recorded Confirmed No Known Home Medications 03/27/21 03/27/21 Allergies Allergy/AdvReac Type Severity Reaction Status Date / Time No Known Allergies Allergy Verified 03/27/21 10:00 Review of Systems ROS Statement: Those systems with pertinent positive or pertinent negative responses have been documented in the HPI. ROS Other: All systems not noted in ROS Statement are negative. Past Medical History Past Medical History: Hypertension Additional Past Medical History / Comment(s): hx migraines History of Any Multi-Drug Resistant Organisms: None Reported Past Surgical History: No Surgical Hx Reported Additional Past Surgical History / Comment(s): fx Tibia and fibula, I&D testicle, Past Anesthesia/Blood Transfusion Reactions: No Reported Reaction Past Psychological History: ADD/ADHD, Anxiety, Depression Smoking Status: Current every day smoker Past Alcohol Use History: None Reported Past Drug Use History: None Reported, Cocaine, Marijuana - Past Family History Mother Family Medical History: Cancer Additional Family Medical History / Comment(s): cervical cancer Father Family Medical History: Cancer Additional Family Medical History / Comment(s): Father in 1997 from lung and liver cancer General Exam Limitations: no limitations General appearance: alert, in no apparent distress Head exam: Present: atraumatic, normocephalic, normal inspection Eye exam: Present: normal appearance, PERRL, EOMI. Absent: scleral icterus, conjunctival injection, periorbital swelling Respiratory exam: Present: normal lung sounds bilaterally. Absent: respiratory distress, wheezes, rales, rhonchi, stridor Cardiovascular Exam: Present: regular rate, normal rhythm, normal heart sounds. Absent: systolic murmur, diastolic murmur, rubs, gallop, clicks GI/Abdominal exam: Present: soft, tenderness (Moderate right upper quadrant), normal bowel sounds. Absent: distended, guarding, rebound, rigid Extremities exam: Present: normal inspection, full ROM, normal capillary refill. Absent: tenderness, pedal edema, joint swelling, calf tenderness Back exam: Present: full ROM, tenderness (Diffuse nonlocalized), paraspinal tenderness. Absent: CVA tenderness (R), CVA tenderness (L), vertebral tenderness Neurological exam: Present: alert Skin exam: Present: warm, dry, intact, normal color. Absent: rash Course Vital Signs 03/27/21 03/27/21 03/27/21 08:51 09:27 09:55 Temperature 97.5 F L Pulse Rate 96 Respiratory 18 16 16 Rate Blood Pressure 217/122 217/133 186/109 O2 Sat by Pulse 95 96 96 Oximetry 03/27/21 03/27/21 10:00 10:31 Temperature Pulse Rate 100 100 Respiratory 16 16 Rate Blood Pressure 194/115 157/91 O2 Sat by Pulse 97 97 Oximetry Medical Decision Making - Medical Decision Making Case discussed with Dr. Haynes. Patiently admitted for acute cholelithiasis cholecystitis. Patient on antibiotics, fluid bolus, kept nothing by mouth - Lab Data Result diagrams: 03/27/21 09:09 03/27/21 09:09 Lab Results 03/27/21 03/27/21 03/27/21 Range/Units 09:09 09:09 09:09 WBC 12.0 H (3.8-10.6) k/uL RBC 4.13 L (4.30-5.90) m/uL Hgb 12.8 L (13.0-17.5) gm/dL Hct 37.2 L (39.0-53.0) % MCV 90.2 (80.0-100.0) fL MCH 31.1 (25.0-35.0) pg MCHC 34.5 (31.0-37.0) g/dL RDW 13.4 (11.5-15.5) % Plt Count 262 (150-450) k/uL MPV 7.8 Neutrophils % 85 % Lymphocytes % 8 % Monocytes % 4 % Eosinophils % 2 % Basophils % 0 % Neutrophils # 10.2 H (1.3-7.7) k/uL Lymphocytes # 0.9 L (1.0-4.8) k/uL Monocytes # 0.5 (0-1.0) k/uL Eosinophils # 0.2 (0-0.7) k/uL Basophils # 0.0 (0-0.2) k/uL Sodium 135 L (137-145) mmol/L Potassium 3.4 L (3.5-5.1) mmol/L Chloride 98 (98-107) mmol/L Carbon Dioxide 29 (22-30) mmol/L Anion Gap 8 mmol/L BUN 20 (9-20) mg/dL Creatinine 1.24 (0.66-1.25) mg/dL Est GFR (CKD-EPI)AfAm 88 (>60 ml/min/1.73 sqM) Est GFR (CKD-EPI)NonAf 76 (>60 ml/min/1.73 sqM) Glucose 152 H (74-99) mg/dL Plasma Lactic Acid Moody (0.7-2.0) mmol/L Calcium 8.6 (8.4-10.2) mg/dL Total Bilirubin 3.0 H (0.2-1.3) mg/dL AST 143 H (17-59) U/L ALT 118 H (4-49) U/L Alkaline Phosphatase 363 H (38-126) U/L Total Protein 7.6 (6.3-8.2) g/dL Albumin 3.5 (3.5-5.0) g/dL Amylase 78 (30-110) U/L Lipase 186 (23-300) U/L Urine Color Yellow Urine Appearance Clear (Clear) Urine pH 6.0 (5.0-8.0) Ur Specific [place] 1.017 (1.001-1.035) Urine Protein 2+ H (Negative) Urine Glucose (UA) Negative (Negative) Urine Ketones Negative (Negative) Urine Blood Trace H (Negative) Urine Nitrite Negative (Negative) Urine Bilirubin 1+ H (Negative) Urine Urobilinogen 6.0 (<2.0) mg/dL Ur Leukocyte Esterase Negative (Negative) Urine RBC 3 (0-5) /hpf Urine WBC 1 (0-5) /hpf Urine Mucus Rare H (None) /hpf Urine Opiates Screen (NotDetected) Ur Oxycodone Screen (NotDetected) Urine Methadone Screen (NotDetected) Ur Propoxyphene Screen (NotDetected) Ur Barbiturates Screen (NotDetected) U Tricyclic Antidepress (NotDetected) Ur Phencyclidine Scrn (NotDetected) Ur Amphetamines Screen (NotDetected) U Methamphetamines Scrn (NotDetected) U Benzodiazepines Scrn (NotDetected) Urine Cocaine Screen (NotDetected) U Marijuana (THC) Screen (NotDetected) 03/27/21 03/27/21 Range/Units 09:09 09:09 WBC (3.8-10.6) k/uL RBC (4.30-5.90) m/uL Hgb (13.0-17.5) gm/dL Hct (39.0-53.0) % MCV (80.0-100.0) fL MCH (25.0-35.0) pg MCHC (31.0-37.0) g/dL RDW (11.5-15.5) % Plt Count (150-450) k/uL MPV Neutrophils % % Lymphocytes % % Monocytes % % Eosinophils % % Basophils % % Neutrophils # (1.3-7.7) k/uL Lymphocytes # (1.0-4.8) k/uL Monocytes # (0-1.0) k/uL Eosinophils # (0-0.7) k/uL Basophils # (0-0.2) k/uL Sodium (137-145) mmol/L Potassium (3.5-5.1) mmol/L Chloride (98-107) mmol/L Carbon Dioxide (22-30) mmol/L Anion Gap mmol/L BUN (9-20) mg/dL Creatinine (0.66-1.25) mg/dL Est GFR (CKD-EPI)AfAm (>60 ml/min/1.73 sqM) Est GFR (CKD-EPI)NonAf (>60 ml/min/1.73 sqM) Glucose (74-99) mg/dL Plasma Lactic Acid Moody 1.0 (0.7-2.0) mmol/L Calcium (8.4-10.2) mg/dL Total Bilirubin (0.2-1.3) mg/dL AST (17-59) U/L ALT (4-49) U/L Alkaline Phosphatase (38-126) U/L Total Protein (6.3-8.2) g/dL Albumin (3.5-5.0) g/dL Amylase (30-110) U/L Lipase (23-300) U/L Urine Color Urine Appearance (Clear) Urine pH (5.0-8.0) Ur Specific [place] (1.001-1.035) Urine Protein (Negative) Urine Glucose (UA) (Negative) Urine Ketones (Negative) Urine Blood (Negative) Urine Nitrite (Negative) Urine Bilirubin (Negative) Urine Urobilinogen (<2.0) mg/dL Ur Leukocyte Esterase (Negative) Urine RBC (0-5) /hpf Urine WBC (0-5) /hpf Urine Mucus (None) /hpf Urine Opiates Screen Not Detected (NotDetected) Ur Oxycodone Screen Not Detected (NotDetected) Urine Methadone Screen Not Detected (NotDetected) Ur Propoxyphene Screen Not Detected (NotDetected) Ur Barbiturates Screen Not Detected (NotDetected) U Tricyclic Antidepress Not Detected (NotDetected) Ur Phencyclidine Scrn Not Detected (NotDetected) Ur Amphetamines Screen Detected H (NotDetected) U Methamphetamines Scrn Detected H (NotDetected) U Benzodiazepines Scrn Not Detected (NotDetected) Urine Cocaine Screen Detected H (NotDetected) U Marijuana (THC) Screen Not Detected (NotDetected) Disposition Clinical Impression: Cholecystitis, acute with cholelithiasis Disposition: ADMITTED IP TO THIS [facility] Condition: Fair Referrals: None,Stated [Primary Care Provider] - 1-2 days
[2021-03-27 09:27] LABS: Basophils % (A) 0 %; Eosinophils # (A) 0.2 k/uL (0-0.7); Eosinophils % (A) 2 %; HCT 37.2 % (39.0-53.0); HGB 12.8 gm/dL (13.0-17.5); Lymphocytes # (A) 0.9 k/uL (1.0-4.8); Lymphocytes % (A) 8 %; MCH 31.1 pg (25.0-35.0); MCHC 34.5 g/dL (31.0-37.0); MCV 90.2 fL (80.0-100.0); Mean Platelet Volume 7.8; Monocytes # (A) 0.5 k/uL (0-1.0); Monocytes % (A) 4 %; Neutrophils # (A) 10.2 k/uL (1.3-7.7); Neutrophils % (A) 85 %; Platelet Count 262 k/uL (150-450); RBC 4.13 m/uL (4.30-5.90); RDW 13.4 % (11.5-15.5)
[2021-03-27 09:46] LABS: Albumin 3.5 g/dL (3.5-5.0); Calcium 8.6 mg/dL (8.4-10.2); Potassium 3.4 mmol/L (3.5-5.1); Total Protein 7.6 g/dL (6.3-8.2)
[2021-03-27 09:48] LABS: Amphetamine Screen,Urine Detected (NotDetected); Benzodiazepines Screen,Urine Not Detected (NotDetected); Cocaine Screen,Urine Detected (NotDetected); Opiate Screen,Urine Not Detected (NotDetected); Phencyclidine Screen,Urine Not Detected (NotDetected); Tricyclic Antidepressant,Urine Not Detected (NotDetected); Urn Cannabinoid Scrn Not Detected (NotDetected)
[2021-03-27 09:49] LABS: Barbiturate Screen,Urine Not Detected (NotDetected); Methadone Screen, Urine Not Detected (NotDetected); Oxycodone Screen, Urine Not Detected (NotDetected)
[2021-03-27 09:51] LABS: Appearance,Urine Clear (Clear); Bilirubin,Urine 1+ (Negative); Blood,Urine Trace (Negative); Color,Urine Yellow; Glucose,Urine (UA) Negative (Negative); Ketones,Urine Negative (Negative); Leukocyte Esterase,Urine Negative (Negative); Mucus,Urine Rare /hpf; Nitrite,Urine Negative (Negative); Protein,Urine 2+ (Negative); RBC,Urine 3 /hpf (0-5); Specific Gravity,Urine 1.017 (1.001-1.035); WBC,Urine 1 /hpf (0-5)
--- NOTE | 2021-03-27 10:42 | US ---
EXAMINATION TYPE: US abdomen limited DATE OF EXAM: 03/27/2021 COMPARISON: CT's 2019 CLINICAL HISTORY: pain. abdomen and back pain EXAM MEASUREMENTS: Liver Length: 14.0 cm Gallbladder Wall: 0.5 cm CBD: 0.6 cm Right Kidney: 11.5 x 7.2 x 7.0 cm Pancreas: visualized portions wnl Liver: wnl Gallbladder: thickened wall, 2 mobile stones with shadowing Evidence for sonographic Parikh's sign: Yes CBD: measures 0.6 cm Right Kidney: imaged posteriorly, no hydronephrosis or masses seen. IMPRESSION: 1. Thickened gallbladder wall with gallstones. There is a positive Parikh sign. Correlate for acute c holecystitis.
[2021-03-27] MEDS ORDERED: PIPERACILLIN-TAZOBACTAM 3.375 GM in SODIUM CHLORIDE 0.9% 100 ML IVPB STA (10:53)
[2021-03-27] MEDS ORDERED: HYDROmorphone 0.5 MG/0.5 ML SYRINGE IVP STA (10:59)
[2021-03-27] MEDS ORDERED: SODIUM CHLORIDE 0.9% 1,000 ML IV ONE (11:02)
[2021-03-27] MEDS ORDERED: NALOXONE 0.4 MG/ML 1 ML VIAL IV PRN (11:03)
--- NOTE | 2021-03-27 11:16 | P.GSHP ---
History of Present Illness H&P Date: 03/27/21 Chief Complaint: Right upper quadrant pain This is a 35-year-old male who presented to the emergency room with abdominal pain. Patient cholecystitis with possible choledocholithiasis. Patient states she's had pain for 2 days. He is a difficult historian. Past Medical History Past Medical History: Hypertension Additional Past Medical History / Comment(s): hx migraines History of Any Multi-Drug Resistant Organisms: None Reported Past Surgical History: No Surgical Hx Reported Additional Past Surgical History / Comment(s): fx Tibia and fibula, I&D testicle, Past Anesthesia/Blood Transfusion Reactions: No Reported Reaction Past Psychological History: ADD/ADHD, Anxiety, Depression Smoking Status: Current every day smoker Past Alcohol Use History: None Reported Past Drug Use History: None Reported, Cocaine, Marijuana - Past Family History Mother Family Medical History: Cancer Additional Family Medical History / Comment(s): cervical cancer Father Family Medical History: Cancer Additional Family Medical History / Comment(s): Father in 1997 from lung and liver cancer Medications and Allergies Home Medications Medication Instructions Recorded Confirmed Type No Known Home Medications 03/27/21 03/27/21 History Allergies Allergy/AdvReac Type Severity Reaction Status Date / Time No Known Allergies Allergy Verified 03/27/21 10:00 Surgical - Exam Vital Signs Temp Pulse Resp BP Pulse Ox 97.5 F L 96 18 217/122 95 03/27/21 08:51 03/27/21 08:51 03/27/21 08:51 03/27/21 08:51 03/27/21 08:51 - General well developed, well nourished, no distress - Eyes PERRL - ENT normal pinna - Neck no masses - Respiratory normal expansion - Cardiovascular Rhythm: regular - Abdomen Mild right upper quadrant tenderness Abdomen: soft Results - Labs 03/27/21 09:09 03/27/21 09:09 Abnormal Lab Results - Last 24 Hours (Table) 03/27/21 03/27/21 03/27/21 Range/Units 09:09 09:09 09:09 WBC 12.0 H (3.8-10.6) k/uL RBC 4.13 L (4.30-5.90) m/uL Hgb 12.8 L (13.0-17.5) gm/dL Hct 37.2 L (39.0-53.0) % Neutrophils # 10.2 H (1.3-7.7) k/uL Lymphocytes # 0.9 L (1.0-4.8) k/uL Sodium 135 L (137-145) mmol/L Potassium 3.4 L (3.5-5.1) mmol/L Glucose 152 H (74-99) mg/dL Total Bilirubin 3.0 H (0.2-1.3) mg/dL AST 143 H (17-59) U/L ALT 118 H (4-49) U/L Alkaline Phosphatase 363 H (38-126) U/L Urine Protein 2+ H (Negative) Urine Blood Trace H (Negative) Urine Bilirubin 1+ H (Negative) Urine Mucus Rare H (None) /hpf Ur Amphetamines Screen (NotDetected) U Methamphetamines Scrn (NotDetected) Urine Cocaine Screen (NotDetected) 03/27/21 Range/Units 09:09 WBC (3.8-10.6) k/uL RBC (4.30-5.90) m/uL Hgb (13.0-17.5) gm/dL Hct (39.0-53.0) % Neutrophils # (1.3-7.7) k/uL Lymphocytes # (1.0-4.8) k/uL Sodium (137-145) mmol/L Potassium (3.5-5.1) mmol/L Glucose (74-99) mg/dL Total Bilirubin (0.2-1.3) mg/dL AST (17-59) U/L ALT (4-49) U/L Alkaline Phosphatase (38-126) U/L Urine Protein (Negative) Urine Blood (Negative) Urine Bilirubin (Negative) Urine Mucus (None) /hpf Ur Amphetamines Screen Detected H (NotDetected) U Methamphetamines Scrn Detected H (NotDetected) Urine Cocaine Screen Detected H (NotDetected) Diabetes panel 03/27/21 Range/Units 09:09 Sodium 135 L (137-145) mmol/L Potassium 3.4 L (3.5-5.1) mmol/L Chloride 98 (98-107) mmol/L Carbon Dioxide 29 (22-30) mmol/L BUN 20 (9-20) mg/dL Creatinine 1.24 (0.66-1.25) mg/dL Glucose 152 H (74-99) mg/dL Calcium 8.6 (8.4-10.2) mg/dL AST 143 H (17-59) U/L ALT 118 H (4-49) U/L Alkaline Phosphatase 363 H (38-126) U/L Total Protein 7.6 (6.3-8.2) g/dL Albumin 3.5 (3.5-5.0) g/dL Calcium panel 03/27/21 Range/Units 09:09 Calcium 8.6 (8.4-10.2) mg/dL Albumin 3.5 (3.5-5.0) g/dL Pituitary panel 03/27/21 Range/Units 09:09 Sodium 135 L (137-145) mmol/L Potassium 3.4 L (3.5-5.1) mmol/L Chloride 98 (98-107) mmol/L Carbon Dioxide 29 (22-30) mmol/L BUN 20 (9-20) mg/dL Creatinine 1.24 (0.66-1.25) mg/dL Glucose 152 H (74-99) mg/dL Calcium 8.6 (8.4-10.2) mg/dL Adrenal panel 03/27/21 Range/Units 09:09 Sodium 135 L (137-145) mmol/L Potassium 3.4 L (3.5-5.1) mmol/L Chloride 98 (98-107) mmol/L Carbon Dioxide 29 (22-30) mmol/L BUN 20 (9-20) mg/dL Creatinine 1.24 (0.66-1.25) mg/dL Glucose 152 H (74-99) mg/dL Calcium 8.6 (8.4-10.2) mg/dL Total Bilirubin 3.0 H (0.2-1.3) mg/dL AST 143 H (17-59) U/L ALT 118 H (4-49) U/L Alkaline Phosphatase 363 H (38-126) U/L Total Protein 7.6 (6.3-8.2) g/dL Albumin 3.5 (3.5-5.0) g/dL - Imaging US - abdomen: report reviewed (Thickened gallbladder wall, cholelithiasis) Assessment and Plan Assessment: Cholelithiasis. Cholecystitis. Patient will have his liver function tests repeated tomorrow. If they are improving or stable to undergo laparoscopic cholecystectomy.
[2021-03-27] MEDS: SODIUM CHLORIDE 0.9% 1,000 ML IV SCH (11:36)
[2021-03-27] MEDS ORDERED: POTASSIUM BICARBONATE/CIT AC 20 MEQ TABLET.EFF PO ONE (11:52)
--- NOTE | 2021-03-27 15:23 | P.CONS ---
History of Present Illness - Reason for Consult Consult date: 03/27/21 Medical management Requesting physician: Petr Haynes - Chief Complaint Abdominal pain - History of Present Illness This is a 35-year-old male with past medical history significant for IV heroine use who presented to the emergency room with abdominal pain. Pain started 2 days ago and was associated with one episode of nausea and vomiting. Patient denies any fevers or chills. He said the pain is mostly located in the right upper quadrant. Patient was evaluated in the emergency room and was found to have a suspected acute cholecystitis he was admitted under Gen. surgery with the plan for possible cholecystectomy in the morning. I was asked to see him for medical management. Patient is pain-free at the time of my evaluation. He admits to using IV heroin on a daily basis. He denies alcohol use. He is concerned about having with all symptoms. He has a significantly elevated blood pressure in the emergency room that denies any history of underlying hyp ertension. Review of Systems Review of system: 14 points review of systems were obtained and were negative except to what were mentioned in the HPI. Past Medical History Past Medical History: Hypertension Additional Past Medical History / Comment(s): hx migraines History of Any Multi-Drug Resistant Organisms: None Reported Past Surgical History: No Surgical Hx Reported Additional Past Surgical History / Comment(s): fx Tibia and fibula, I&D testicle, Past Anesthesia/Blood Transfusion Reactions: No Reported Reaction Past Psychological History: ADD/ADHD, Anxiety, Depression Smoking Status: Current every day smoker Past Alcohol Use History: None Reported Past Drug Use History: None Reported, Cocaine, Marijuana - Past Family History Mother Family Medical History: Cancer Additional Family Medical History / Comment(s): cervical cancer Father Family Medical History: Cancer Additional Family Medical History / Comment(s): Father in 1997 from lung and liver cancer Medications and Allergies Home Medications Medication Instructions Recorded Confirmed Type No Known Home Medications 03/27/21 03/27/21 History Allergies Allergy/AdvReac Type Severity Reaction Status Date / Time No Known Allergies Allergy Verified 03/27/21 10:00 Physical Exam Vitals: Vital Signs Temp Pulse Pulse Resp BP BP Pulse Ox 03/27/21 14:56 97.8 F 93 18 167/83 96 03/27/21 12:34 101 H 18 163/88 97 03/27/21 10:31 100 16 157/91 97 03/27/21 10:00 100 16 194/115 97 03/27/21 09:55 16 186/109 96 03/27/21 09:27 16 217/133 96 03/27/21 08:51 97.5 F L 96 18 217/122 95 Intake and Output 03/27/21 03/27/21 03/27/21 06:59 14:59 22:59 Other: # Voids 1 Weight 68.039 kg General: The patient is awake and alert, in no distress Eye: there is normal conjunctiva bilaterally. Neck: The neck is supple, there is no JVD. Cardiovascular: Normal S1-S2, no S3-S4, no murmurs. Respiratory: Lungs clear to auscultation bilaterally Gastrointestinal: Abdomen is soft, nontender Musculoskeletal: There is no pedal edema. Neurological:. Speech is normal. Skin: Skin is warm and dry Results CBC & Chem 7: 03/27/21 09:09 03/27/21 09:09 Labs: Abnormal Lab Results - Last 24 Hours (Table) 03/27/21 03/27/21 03/27/21 Range/Units 09:09 09:09 09:09 WBC 12.0 H (3.8-10.6) k/uL RBC 4.13 L (4.30-5.90) m/uL Hgb 12.8 L (13.0-17.5) gm/dL Hct 37.2 L (39.0-53.0) % Neutrophils # 10.2 H (1.3-7.7) k/uL Lymphocytes # 0.9 L (1.0-4.8) k/uL Sodium 135 L (137-145) mmol/L Potassium 3.4 L (3.5-5.1) mmol/L Glucose 152 H (74-99) mg/dL Total Bilirubin 3.0 H (0.2-1.3) mg/dL AST 143 H (17-59) U/L ALT 118 H (4-49) U/L Alkaline Phosphatase 363 H (38-126) U/L Urine Protein 2+ H (Negative) Urine Blood Trace H (Negative) Urine Bilirubin 1+ H (Negative) Urine Mucus Rare H (None) /hpf Ur Amphetamines Screen (NotDetected) U Methamphetamines Scrn (NotDetected) Urine Cocaine Screen (NotDetected) 03/27/21 Range/Units 09:09 WBC (3.8-10.6) k/uL RBC (4.30-5.90) m/uL Hgb (13.0-17.5) gm/dL Hct (39.0-53.0) % Neutrophils # (1.3-7.7) k/uL Lymphocytes # (1.0-4.8) k/uL Sodium (137-145) mmol/L Potassium (3.5-5.1) mmol/L Glucose (74-99) mg/dL Total Bilirubin (0.2-1.3) mg/dL AST (17-59) U/L ALT (4-49) U/L Alkaline Phosphatase (38-126) U/L Urine Protein (Negative) Urine Blood (Negative) Urine Bilirubin (Negative) Urine Mucus (None) /hpf Ur Amphetamines Screen Detected H (NotDetected) U Methamphetamines Scrn Detected H (NotDetected) Urine Cocaine Screen Detected H (NotDetected) Assessment and Plan Assessment: 1. Acute cholecystitis with transaminitis, started on empiric IV antibiotic with Zosyn. Admitted to general surgery with possible laparoscopic cholecystectomy in the morning. 2. Polysubstance abuse including IV heroin and methamphetamine 3. Hypertensive urgency with no known history of essential hypertension. Elevated blood pressure may be secondary to amphetamine intoxication. 4. DVT prophylaxis with subcu Lovenox Today, I reviewed his medication list and lab work results. I would start the patient on clonidine 0.1 mg 3 times a day which will help with opiate withdrawal symptoms as well as elevated blood pressure. We will continue to monitor closely. Start clear liquid diet and nothing by mouth after midnight for possible surgery in the morning. Repeat lab work in the morning. Thank you very much for the consultation. I will continue to follow up on the patient closely with you.
[2021-03-27] MEDS: cloNIDine HCL 0.1 MG TAB PO SCH ×2 (17:09→20:57)
[2021-03-27 17:56] LABS: Hepatitis A Antibody IgM Non-Reactive (Non-Reactive); Hepatitis B Core IgM Non-Reactive (Non-Reactive); Hepatitis B Surface Antigen Reactive (Non-Reactive); Hepatitis C IgG Antibody Reactive (Non-Reactive)
[2021-03-27] MEDS: NICOTINE 14MG/24HR PATCH TRANSDERM SCH (20:57)
[2021-03-27] MEDS: PIPERACILLIN-TAZOBACTAM 3.375 GM in SODIUM CHLORIDE 0.9% 100 ML IVPB SCH (20:57)
[2021-03-27] MEDS: ONDANSETRON 4 MG/2 ML VIAL IVP PRN (21:08)
[2021-03-27] MEDS: HYDROmorphone 0.5 MG/0.5 ML SYRINGE IVP PRN (21:08)
[2021-03-28] MEDS: SODIUM CHLORIDE 0.9% 1,000 ML IV SCH ×2 (02:23→10:22)
[2021-03-28] MEDS: HYDROmorphone 0.5 MG/0.5 ML SYRINGE IVP PRN ×2 (02:57→10:19)
[2021-03-28] MEDS: PIPERACILLIN-TAZOBACTAM 3.375 GM in SODIUM CHLORIDE 0.9% 100 ML IVPB SCH ×3 (02:57→20:25)
[2021-03-28 05:38] LABS: Basophils % (A) 0 %; Eosinophils # (A) 0.3 k/uL (0-0.7); Eosinophils % (A) 3 %; HCT 36.4 % (39.0-53.0); HGB 12.3 gm/dL (13.0-17.5); Lymphocytes # (A) 0.8 k/uL (1.0-4.8); Lymphocytes % (A) 8 %; MCH 30.7 pg (25.0-35.0); MCHC 33.6 g/dL (31.0-37.0); MCV 91.4 fL (80.0-100.0); Mean Platelet Volume 7.1; Monocytes # (A) 0.5 k/uL (0-1.0); Monocytes % (A) 5 %; Neutrophils # (A) 8.5 k/uL (1.3-7.7); Neutrophils % (A) 84 %; Platelet Count 275 k/uL (150-450); RBC 3.99 m/uL (4.30-5.90); RDW 13.6 % (11.5-15.5); WBC 10.1 k/uL (3.8-10.6)
[2021-03-28 05:55] LABS: ALT 87 U/L (4-49); AST 89 U/L (17-59); African American GFR (CKD) >90 (>60 ml/min/1.73 sqM); Albumin 2.7 g/dL (3.5-5.0); Albumin/Globulin Ratio 0.8; Alkaline Phosphatase 271 U/L (38-126); Anion Gap 3 mmol/L; Blood Urea Nitrogen 10 mg/dL (9-20); Calcium 8.1 mg/dL (8.4-10.2); Carbon Dioxide 27 mmol/L (22-30); Chloride 105 mmol/L (98-107); Globulin 3.6 g/dL; Glucose 100 mg/dL (74-99); Non-African American GFR(CKD) >90 (>60 ml/min/1.73 sqM); Potassium 3.7 mmol/L (3.5-5.1); Sodium 135 mmol/L (137-145); Total Bilirubin 1.2 mg/dL (0.2-1.3); Total Protein 6.3 g/dL (6.3-8.2)
[2021-03-28] MEDS ORDERED: IV FLUID CONTINUATION 700 ML IV ONE (07:02)
[2021-03-28] MEDS ORDERED: DEXAMETHASONE SOD PHOSPHATE 4 MG/ML 1 ML VIAL IV ONE (07:27)
[2021-03-28] MEDS: ONDANSETRON 4 MG/2 ML VIAL IVP PRN (07:28)
[2021-03-28] MEDS ORDERED: HYDROmorphone (PF) 1 MG/ML ONE (07:35)
[2021-03-28] MEDS ORDERED: LIDOCAINE 1% INJ 10MG/ML (20 ML MDV) ONE (07:35)
[2021-03-28] MEDS ORDERED: ROCURONIUM 10 MG/ML (5 ML VIAL) IV ONE (07:35)
[2021-03-28] MEDS ORDERED: NEOSTIGMINE 1 MG/ML 10 ML VIAL ONE (07:35)
[2021-03-28] MEDS ORDERED: KETOROLAC 15 MG/ML 1 ML VIAL ONE (07:35)
[2021-03-28] MEDS ORDERED: SUCCINYLCHOLINE CHLORIDE 100 MG/5 ML SYR IV ONE (07:35)
[2021-03-28] MEDS ORDERED: MIDAZOLAM 2 MG/2 ML VIAL ONE (07:35)
[2021-03-28] MEDS ORDERED: GLYCOPYRROLATE 0.2 MG/ML 2 ML VIAL ONE (07:35)
[2021-03-28] MEDS ORDERED: fentaNYL (PF) 50 MCG/ML 2 ML AMP ONE (07:35)
[2021-03-28] MEDS ORDERED: PROPOFOL 10 MG/ML 20 ML VIAL IV ONE (07:35)
[2021-03-28] MEDS ORDERED: HEPARIN SODIUM,PORCINE/PF 5,000 UNIT/0.5 ML SYRINGE SQ ONE (07:55)
[2021-03-28] MEDS ORDERED: HEPARIN SODIUM,PORCINE 5,000 UNIT/ML 1 ML VIAL SQ ONE (07:58)
[2021-03-28] MEDS ORDERED: BUPIVACAINE (PF) 0.25% 30 ML VIAL SQ ONE ×2 (08:00→08:24)
[2021-03-28] MEDS ORDERED: LACTATED RINGERS 1,000 ML IV ONE (08:44)
--- NOTE | 2021-03-28 08:59 | P.OP ---
Date of Procedure: 03/28/21 Preoperative Diagnosis: Acute cholecystitis Postoperative Diagnosis: Acute cholecystitis Procedure(s) Performed: Laparoscopic cholecystectomy Anesthesia: WESLY Surgeon: Petr Haynes Estimated Blood Loss (ml): 5 Pathology: other (Gallbladder) Condition: stable Disposition: PACU Description of Procedure: The patient was placed on the operating table. The patient received a general endotracheal tube anesthesia. The patients abdomen was prepped and draped in the usual sterile fashion. Through an infraumbilical stab incision, the fascia of the anterior abdominal wall was grasped with a pair of Kochers and then the Veress needle was placed in the peritoneal cavity. Position of the Veress needle was confirmed with positive drop test. The abdomen was then insufflated. After adequate insufflation, the 10 mm trocar was placed in the peritoneal cavity. Following this the laparoscope was placed in the peritoneal cavity. The patient was placed in the head-up, right side up position and then a 5 mm trocar was placed in the right lateral and right subcostal position under direct visualization. A 8 mm trocar was placed in the epigastric position. The gallbladder was grasped in the fundus and infundibulum. Traction on the gallbladder was placed in the lateral and the cephalad positions. The triangle of Calot was visualized.. The cystic duct was bluntly dissected until the union of the cystic duct and common bile duct was seen. A critical view of safety was achieved. The cystic duct was then divided and sealed with the Harmonic scissors. A PDS Endoloop was then placed throughout the cystic duct stump. The cystic artery divided and sealed with the Harmonic scissors. The gallbladder was then removed from the liver bed using Harmonic scissors. The gallbladder was then extracted through the epigastric port site. Operative field was checked for any bleeding spots and Harmonic scissors was used to coagulate the liver bed. The abdomen was irrigated. The trocars were removed. The skin was closed using interrupted 3-0 Vicryl suture. Dermabond dressing were applied. The patient tolerated the procedure well.
[2021-03-28] MEDS ORDERED: diphenhydrAMINE 50 MG/ML 1 ML VIAL IVP ONE ×2 (09:00→09:15)
[2021-03-28] MEDS ORDERED: METOPROLOL TARTRATE 5 MG/5 ML VIAL IVP ONE (09:20)
[2021-03-28] MEDS ORDERED: HYDROmorphone 0.5 MG/0.5 ML SYRINGE IVP ONE ×3 (09:25→09:37)
[2021-03-28] MEDS ORDERED: hydrALAZINE HCL 20 MG/ML 1 ML VIAL IVP ONE (09:30)
[2021-03-28] MEDS ORDERED: fentaNYL (PF) 50 MCG/ML 2 ML AMP IVP ONE ×3 (09:57)
[2021-03-28] MEDS: cloNIDine HCL 0.1 MG TAB PO SCH ×3 (10:18→20:26)
[2021-03-28] MEDS: NICOTINE 14MG/24HR PATCH TRANSDERM SCH ×2 (10:18→10:24)
[2021-03-28] MEDS: ENOXAPARIN 40 MG/0.4 ML SYRINGE SQ SCH (10:31)
[2021-03-28] MEDS: HYDROmorphone 1 MG/ML 1 ML SYRINGE IVP PRN ×4 (12:06→22:08)
--- NOTE | 2021-03-28 13:14 | P.PN ---
Subjective Progress Note Date: 03/28/21 Hospital course: Patient is a 35-year-old male with a past medical history of IVDA reportedly using heroin daily accompanied by cocaine and meth. Patient presented to the hospital on 03/27/21 with a chief complaint of abdominal pain accompanied by nausea and vomiting. He was seen and fully evaluated In the emergency department and found to have acute cholecystitis. Patient underwent a cholecystectomy today with Dr. Haynes. Physical exam: Patient seen and fully evaluated shortly after returning from laproscopic c holecystectomy this morning. He was very agitated, yelling and cursing at staff. RN reports patient was throwing things in his room and nursing staff and security was at bedside. Patient limited cooperation with assessment, and was found to have respirations even, regular, and unlabored on room air. Laparoscopic incisions intact with no evidence of bleeding or discharge present. Patient refusing vital signs at this time. He denies having any postoperative nausea and currently remains nothing by mouth. General: non toxic, no distress, appears at stated age Derm: warm, dry Head: atraumatic, normocephalic, symmetric Eyes: EOMI, no lid lag, anicteric sclera Mouth: no lip lesion, mucus membranes moist Cardiovascular: S1S2 reg, no murmur, positive posterior tibial pulse bilateral, Lungs: CTA bilateral, no rhonchi, no rales , no accessory muscle use Abdominal: Status post laparoscopic cholecystectomy, incisions intact no bleeding or drainage noted. Abdomen soft, slightly distended. Ext: no gross muscle atrophy, no edema, no contractures Neuro: CN II-XI grossly intact, no focal neuro deficits Psych: Alert, oriented, appropriate affect Plan of care: Acute cholecystectomy with transaminitis -Continue IV antibiotics with Zosyn -Patient underwent laparoscopic cholecystectomy with Dr. Haynes this morning. -Pain management per general surgery team. Hypertensive urgency -Possibly secondary to polysubstance abuse with cocaine and amphetamines. -UDS positive for cocaine and amphetamines -Patient currently refusing vital signs at this time. We will continue to monitor and further address if needed once patient becomes compliant with care. Polysubstance abuse with heroin, cocaine, and methamphetamines -Continued encouragement and education about cessation and risks of continued use up to and including . Information to be provided regarding outpatient treatment programs. CODE STATUS: Full code DVT prophylaxis: Lovenox Discussed with: Patient and RN Anticipated discharge date: 1-[address]: Home A total of 45 minutes was spent on the care of this complex patient more than 50% of the time was spent in counseling and care coordination. Objective - Vital Signs Vital signs: Vital Signs Temp 97.3 F L 03/28/21 08:56 Pulse 100 03/28/21 09:55 Resp 20 03/28/21 09:55 BP 180/94 03/28/21 09:55 Pulse Ox 98 03/28/21 09:55 Intake & Output 03/27/21 03/28/21 03/28/21 18:59 06:59 18:59 Intake Total 183 149 8825 Output Total 5 Balance 664 815 3291 Weight 68.039 kg Intake: IV 1450 Oral 180 540 Output: Estimated Blood Loss 5 Other: Voiding Method Toilet Urinal # Voids 1 1 - Labs CBC & Chem 7: 03/28/21 05:15 03/28/21 05:15 Labs: Abnormal Lab Results - Last 24 Hours (Table) 03/27/21 03/27/21 03/28/21 Range/Units 09:09 09:09 05:15 RBC (4.30-5.90) m/uL Hgb (13.0-17.5) gm/dL Hct (39.0-53.0) % Neutrophils # (1.3-7.7) k/uL Lymphocytes # (1.0-4.8) k/uL Sodium 135 L (137-145) mmol/L Glucose 100 H (74-99) mg/dL Calcium 8.1 L (8.4-10.2) mg/dL AST 89 H (17-59) U/L ALT 87 H (4-49) U/L Alkaline Phosphatase 271 H (38-126) U/L Albumin 2.7 L (3.5-5.0) g/dL Hep Bs Antigen Reactive A (Non-Reactive) Hep Bs Ag Confirmation Reactive A (Non-Reactive) Hep C IgG Ab Reactive A (Non-Reactive) 03/28/21 Range/Units 05:15 RBC 3.99 L (4.30-5.90) m/uL Hgb 12.3 L (13.0-17.5) gm/dL Hct 36.4 L (39.0-53.0) % Neutrophils # 8.5 H (1.3-7.7) k/uL Lymphocytes # 0.8 L (1.0-4.8) k/uL Sodium (137-145) mmol/L Glucose (74-99) mg/dL Calcium (8.4-10.2) mg/dL AST (17-59) U/L ALT (4-49) U/L Alkaline Phosphatase (38-126) U/L Albumin (3.5-5.0) g/dL Hep Bs Antigen (Non-Reactive) Hep Bs Ag Confirmation (Non-Reactive) Hep C IgG Ab (Non-Reactive)
[2021-03-29] MEDS: HYDROmorphone 1 MG/ML 1 ML SYRINGE IVP PRN ×3 (00:59→07:08)
[2021-03-29] MEDS: ONDANSETRON 4 MG/2 ML VIAL IVP PRN (01:02)
[2021-03-29] MEDS: HYDROcodone/APAP 5-325MG 1 EACH TAB PO PRN ×6 (02:25→20:04)
[2021-03-29] MEDS: SODIUM CHLORIDE 0.9% 1,000 ML IV SCH (03:43)
[2021-03-29] MEDS: PIPERACILLIN-TAZOBACTAM 3.375 GM in SODIUM CHLORIDE 0.9% 100 ML IVPB SCH ×2 (03:44→10:23)
[2021-03-29] MEDS: ENOXAPARIN 40 MG/0.4 ML SYRINGE SQ SCH (07:08)
[2021-03-29] MEDS: NICOTINE 14MG/24HR PATCH TRANSDERM SCH (07:08)
[2021-03-29] MEDS: cloNIDine HCL 0.1 MG TAB PO SCH ×3 (07:09→20:10)
[2021-03-29] MEDS ORDERED: cloNIDine HCL 0.2 MG TAB PO SCH (07:45)
[2021-03-29] MEDS ORDERED: hydrALAZINE HCL 20 MG/ML 1 ML VIAL IVP STA ×2 (11:06→14:29)
[2021-03-29] MEDS ORDERED: hydrALAZINE HCL 25 MG TAB PO STA (11:38)
--- NOTE | 2021-03-29 13:29 | P.PN ---
Subjective Progress Note Date: 03/29/21 CHIEF COMPLAINT: Acute cholecystitis HISTORY OF PRESENT ILLNESS: Patient is postop day #1 laparoscopic ch olecystectomy. He was able to eat a few bites of his regular breakfast. He is complaining of abdominal pain. Denies bowel movement or passing gas. Patient has history of daily Heroin use. Patient has been yelling and threatening to throw the IV route across the room because it is beating. Patient's blood pressures have been elevated. Medicine service is adjusting blood pressure medication. They are recommending that patient stays due to elevated BP. Afebrile. Blood pressure 199/121 PHYSICAL EXAM: VITAL SIGNS: Reviewed. GENERAL: Well-developed in no acute distress. HEENT: No sclera icterus. Extraocular movements grossly intact. Moist buccal mucosa. Head is atraumatic, normocephalic. ABDOMEN: Soft. Nondistended. NEUROLOGIC: Alert and oriented. Cranial nerves II through XII grossly intact. ASSESSMENT: 1. Acute cholecystitis status post laparoscopic cholecystectomy 2. Uncontrolled hypertension PLAN: -Blood pressure treatment per medicine service -Continue regular diet -Continue oral pain medication -Encourage patient to ambulate -Encourage patient to use incentive spirometer -DVT prophylaxis Lovenox Physician Assembler [employer] note has been reviewed by physician. Signing provider agrees with the documented findings, assessment, and plan of care. Objective - Vital Signs Vital signs: Vital Signs Temp 97.7 F 03/29/21 07:00 Pulse 96 03/29/21 07:00 Resp 16 03/29/21 07:00 BP 199/121 03/29/21 11:52 Pulse Ox 99 03/29/21 07:00 Intake & Output 03/28/21 03/29/21 03/29/21 18:59 06:59 18:59 Intake Total 1450 Output Total 305 Balance 1145 Intake: IV 1450 Output: Urine 300 Estimated Blood Loss 5 Other: Voiding Method Toilet Toilet Urinal Urinal # Voids 3 1 - Labs CBC & Chem 7: 03/28/21 05:15 03/28/21 05:15
--- NOTE | 2021-03-29 14:56 | P.PN ---
Subjective Progress Note Date: 03/29/21 Patient was very belligerent to nursing staff this morning calling them names. He said that his abdominal pain is not well controlled. He is exhibiting IV pain medication seeking behavior. Objective - Vital Signs Vital signs: Vital Signs Temp 98.3 F 03/29/21 14:10 Pulse 94 03/29/21 14:10 Resp 20 03/29/21 14:10 BP 200/119 03/29/21 14:10 Pulse Ox 98 03/29/21 14:10 Intake & Output 03/28/21 03/29/21 03/29/21 18:59 06:59 18:59 Intake Total 1450 Output Total 305 Balance 1145 Intake: IV 1450 Output: Urine 300 Estimated Blood Loss 5 Other: Voiding Method Toilet Toilet Toilet Urinal Urinal Urinal # Voids 3 1 2 - Exam General: The patient is awake and alert, in no distress Eye: there is normal conjunctiva bilaterally. Neck: The neck is supple, there is no JVD. Cardiovascular: Normal S1-S2, no S3-S4, no murmurs. Respiratory: Lungs clear to auscultation bilaterally Gastrointestinal: Abdomen is soft, nontender Musculoskeletal: There is no pedal edema. Neurological:. Speech is normal. Skin: Skin is warm and dry - Labs CBC & Chem 7: 03/28/21 05:15 03/28/21 05:15 Assessment and Plan Assessment: 1. Acute cholecystitis status post laparoscopic cholecystectomy. Postoperative care per general surgery. 2. Polysubstance abuse including IV heroin and methamphetamine 3. Hypertensive urgency with no known history of essential hypertension. Patient was started on clonidine and dose is being adjusted. Blood pressure still not well controlled. IV hydralazine will be given. 4. DVT prophylaxis with subcu Lovenox Continue to monitor for some improvement in his blood pressure prior to discharge.
[2021-03-30] MEDS: HYDROcodone/APAP 5-325MG 1 EACH TAB PO PRN ×4 (00:24→11:59)
[2021-03-30 02:28] VITALS: RESP 16
[2021-03-30] MEDS: NICOTINE 14MG/24HR PATCH TRANSDERM SCH (07:48)
[2021-03-30] MEDS: cloNIDine HCL 0.1 MG TAB PO SCH (07:48)
[2021-03-30] MEDS: ENOXAPARIN 40 MG/0.4 ML SYRINGE SQ SCH (07:49)
[2021-03-30 08:14] VITALS: BP 164/83; PULSE 65; TEMP 98.2
--- NOTE | 2021-03-30 11:17 | P.PN ---
Subjective Progress Note Date: 03/30/21 Patient is doing a lot better today. Blood pressure better controlled. He is ready to be discharged home. He told me that his not getting use IV drugs again and possibly enrolled himself in [place]. Objective - Vital Signs Vital signs: Vital Signs Temp 98.2 F 03/30/21 07:00 Pulse 65 03/30/21 07:00 Resp 16 03/30/21 08:00 BP 164/83 03/30/21 07:00 Pulse Ox 99 03/30/21 07:00 Intake & Output 03/29/21 03/30/21 03/30/21 18:59 06:59 18:59 Intake Total 2160 Balance 2160 Intake: Oral 2160 Other: Voiding Method Toilet Toilet Urinal # Voids 2 3 - Exam General: The patient is awake and alert, in no distress Eye: there is normal conjunctiva bilaterally. Neck: The neck is supple, there is no JVD. Cardiovascular: Normal S1-S2, no S3-S4, no murmurs. Respiratory: Lungs clear to auscultation bilaterally Gastrointestinal: Abdomen is soft, nontender Musculoskeletal: There is no pedal edema. Neurological:. Speech is normal. Skin: Skin is warm and dry - Labs CBC & Chem 7: 03/28/21 05:15 03/28/21 05:15 Assessment and Plan Assessment: 1. Acute cholecystitis status post laparoscopic cholecystectomy. Postoperative care per general surgery. 2. Polysubstance abuse including IV heroin and methamphetamine 3. Hypertensive urgency with no known history of essential hypertension. Patient was started on clonidine and dose is being adjusted. Blood pressure well controlled. 4. DVT prophylaxis with subcu Lovenox Patient is medically cleared for discharge per primary team. I sent a prescription for clonidine 0.2 mg 3 times a day. I advised the patient to continue to check his blood pressure periodically as he probably need to be weaned off of clonidine in the next week or 2. Also advised [facility]. Patient is homeless but said that he is an echo to his friend's house. I told her to go to the nearby pharmacy to check his blood pressure.
--- NOTE | 2021-03-30 11:49 | P.DS ---
Providers Date of admission: 03/28/21 13:17 Expected date of discharge: 03/30/21 Attending physician: Petr Haynes Consults: 03/27/21 11:18 Consult Physician Routine Consulting Provider: Donell Funes Consult Reason/Comments: Medical management Do you want consulting provider notified?: Yes Primary care physician: Stated None Hospital Course: Discharge diagnosis 1. Acute cholecystitis status post laparoscopic cholecystectomy 2. Uncontrolled hypertension Hospital course This is a 35-year-old male who presented with abdominal pain and was found to have evidence of an acute cholecystitis. He is status post laparoscopic cholecystectomy. He tolerated surgery well. His pain is controlled. He is tolerating diet. He is having bowel movements. He is ambulating. Patient was followed by medicine service due to his elevated blood pressure. They have adjusted blood pressure medications. And have cleared him for discharge. Patient is stable for discharge. Please refer to chart for any further details. Physician Manager [employer] note has been reviewed by physician. Signing provider agrees with the documented findings, assessment, and plan of care. Patient Condition at Discharge: Stable Plan - Discharge Summary Discharge Rx Participant: Yes New Discharge Prescriptions: New Nicotine 14Mg/24Hr Patch [Habitrol] 1 patch TRANSDERM DAILY #30 patch cloNIDine HCL 0.2 mg PO TID #90 tablet Ibuprofen [Motrin] 600 mg PO Q8HR PRN #30 tab PRN Reason: Pain Acetaminophen Tab [Tylenol Tab] 650 mg PO Q4H PRN #30 tablet PRN Reason: Pain Discharge Medication List Acetaminophen Tab [Tylenol Tab] 650 mg PO Q4H PRN #30 tablet 03/30/21 [Rx] Ibuprofen [Motrin] 600 mg PO Q8HR PRN #30 tab 03/30/21 [Rx] Nicotine 14Mg/24Hr Patch [Habitrol] 1 patch TRANSDERM DAILY #30 patch 03/30/21 [Rx] cloNIDine HCL 0.2 mg PO TID #90 tablet 03/30/21 [Rx] Follow up Appointment(s)/Referral(s): None,Stated [Primary Care Provider] - 1-2 days [facility] [NON[facility]STAFF] - 1 Week Petr Haynes MD [STAFF PHYSICIAN] - 1 Week Patient Instructions/Handouts: *Surgery [facility] - Laparoscopic Cholecystectomy Discharge Instructions Activity/Diet/Wound Care/Special Instructions: Go to the pharmacy to get your BP checked Rotate Tylenol and Motrin for pain management Follow up at the [facility] No lifting over 10 pounds You may shower. No soaking or tub baths for 2 weeks Very light activity until you are reevaluated at your follow up appointment with your surgeon Discharge Disposition: HOME SELF-CARE
== END 2021-03-30 12:48 | disposition home or self-care (01) | DRG 418 ==
LOC: EC 08:48 → 6NMEDSUR 11:08 → OBSVTOIN 03-28 13:17
PROVIDERS: ADMIT Surgery; ATTEND Surgery
PROC: 0FT44ZZ Resection of Gallbladder, Percutaneous Endoscopic Approach (ICD-10-PCS; principal; 2021-03-28 11:15)
DX: K80.00 Calculus of gallbladder with acute cholecystitis without obstruction (principal); F11.13 Opioid abuse with withdrawal; F15.120 Other stimulant abuse with intoxication, uncomplicated; Z20.822 Contact with and (suspected) exposure to COVID-19; I10 Essential (primary) hypertension; G43.909 Migraine, unspecified, not intractable, without status migrainosus; F32.9 Major depressive disorder, single episode, unspecified; F41.9 Anxiety disorder, unspecified; F90.9 Attention-deficit hyperactivity disorder, unspecified type; F17.200 Nicotine dependence, unspecified, uncomplicated; R74.01 Elevation of levels of liver transaminase levels; I16.0 Hypertensive urgency; Z76.5 Malingerer [conscious simulation]; Z59.0 Homelessness; Z86.19 Personal history of other infectious and parasitic diseases; Z80.49 Family history of malignant neoplasm of other genital organs; Z80.0 Family history of malignant neoplasm of digestive organs
CPT/HCPCS: 36415; 76705; 80053; 80074; 80306; 81001; 82150; 83605; 83690; 85025; 87340; 87635; 88304; 96361; 96374; 96375; 96376; 99285

== ENCOUNTER 2021-07-26 18:46 | Inpatient (IN) | payer OTHER ==
[2021-07-26] MEDS ORDERED: VANCOMYCIN IV PER PHARMACY 1 EACH MISC MISCELLANE PRN (19:05)
--- NOTE | 2021-07-26 19:11 | ED ---
General Adult HPI - General Chief complaint: Shortness of Breath Stated complaint: chest pain, SOB Time Seen by Provider: 07/26/21 18:50 Source: patient, family, RN notes reviewed, old records reviewed Mode of arrival: ambulatory Limitations: no limitations - History of Present Illness Initial comments: Is a 36-year-old male presents emergency department stating that he has been coughing and short of breath for a week patient states he was at [facility] on the fifth and left AMA. Patient states the coughing and shortness of breath continue. Patient states he occasionally has some sharp chest pain when he coughs. Patient denies any fever or chills. Patient also complains that he has swelling to his right testicle and there is some draining pus. Patient states is extremely tender to touch. Patient states he has had abscesses before. P atient denies any dysuria hematuria urinary frequency. Patient denies any abdominal pain. Patient denies any back pain. I also admits to doing methamphetamine. Patient also mentions that he has high blood pressure but is not compliant at all of his medications - Related Data Home Medications Medication Instructions Recorded Confirmed Unable To Assess [Unable to Assess] 07/27/21 07/27/21 Allergies Allergy/AdvReac Type Severity Reaction Status Date / Time No Known Allergies Allergy Verified 07/27/21 09:29 Review of Systems ROS Statement: Those systems with pertinent positive or pertinent negative responses have been documented in the HPI. ROS Other: All systems not noted in ROS Statement are negative. Past Medical History Past Medical History: Hypertension Additional Past Medical History / Comment(s): hx migraines History of Any Multi-Drug Resistant Organisms: None Reported Past Surgical History: No Surgical Hx Reported Additional Past Surgical History / Comment(s): fx Tibia and fibula, I&D testicle, Past Anesthesia/Blood Transfusion Reactions: No Reported Reaction Past Psychological History: ADD/ADHD, Anxiety, Depression Smoking Status: Current every day smoker Past Alcohol Use History: None Reported Past Drug Use History: None Reported, Cocaine, Marijuana - Past Family History Mother Family Medical History: Cancer Additional Family Medical History / Comment(s): cervical cancer Father Family Medical History: Cancer Additional Family Medical History / Comment(s): Father in 1997 from lung and liver cancer General Exam - General Exam Comments Initial Comments: GENERAL: Patient is well-developed and well-nourished. Patient is nontoxic and well-hyd rated and is in mild distress. ENT: Neck is soft and supple. No significant lymphadenopathy is noted. Oropharynx is clear. Moist mucous membranes. Neck has full range of motion without eliciting any pain. EYES: The sclera were anicteric and conjunctiva were pink and moist. Extraocular movements were intact and pupils were equal round and reactive to light. Eyelids were unremarkable. PULMONARY: Unlabored respirations. Good breath sounds bilaterally. No audible rales rhonchi or wheezing was noted. CARDIOVASCULAR: There is a regular rate and rhythm without any murmurs gallops or rubs. ABDOMEN: Soft and nontender with normal bowel sounds. SKIN: Skin is clear with no lesions or rashes and otherwise unremarkable. GENITALIA: On examination of his scrotum the right side of his scrotum was very swollen and edematous is very firm area that one palpated is quite tender and is draining pus. NEUROLOGIC: Patient is alert and oriented x3. Cranial nerves II through XII are grossly intact. Motor and sensory are also intact. Normal speech, volume and content. Symmetrical smile. MUSCULOSKELETAL: Normal extremities with adequate strength and full range of motion. LYMPHATICS: No significant lymphadenopathy is noted PSYCHIATRIC: Normal psychiatric evaluation. Limitations: no limitations Course Vital Signs 07/26/21 07/26/21 07/26/21 18:51 19:20 19:59 Temperature 98.1 F Pulse Rate 107 H 104 H 111 H Respiratory 22 18 18 Rate Blood Pressure 198/129 209/142 206/130 O2 Sat by Pulse 98 98 Oximetry 07/26/21 07/26/21 07/26/21 20:23 21:18 21:21 Temperature 100.4 F H Pulse Rate 114 H 122 H Respiratory 25 H 28 H Rate Blood Pressure 206/123 234/146 199/155 O2 Sat by Pulse 95 Oximetry 07/26/21 07/26/21 07/26/21 21:54 22:51 23:07 Temperature Pulse Rate 96 96 Respiratory 25 H 16 Rate Blood Pressure 166/106 158/98 O2 Sat by Pulse 97 95 95 Oximetry 07/26/21 07/27/21 23:09 00:06 Temperature 99.2 F Pulse Rate 89 Respiratory 18 Rate Blood Pressure 153/98 O2 Sat by Pulse 96 Oximetry Medical Decision Making - Medical Decision Making EKG shows sinus tachycardia at 105 bpm ND interval 240 dresses 90 QT interval is 352 QTC is 465. Patient's EKG shows no ST segment elevation however there is T- wave inversions in leads V5 and V6. Dr. Galicia will be taking over the care of this patient at 9 PM - Lab Data Result diagrams: 07/26/21 19:37 07/28/21 11:29 Lab Results 07/26/21 07/26/21 07/26/21 Range/Units 19:37 19:37 19:37 WBC 11.3 H (3.8-10.6) k/uL RBC 4.33 (4.30-5.90) m/uL Hgb 13.7 (13.0-17.5) gm/dL Hct 41.6 (39.0-53.0) % MCV 96.0 (80.0-100.0) fL MCH 31.7 (25.0-35.0) pg MCHC 33.0 (31.0-37.0) g/dL RDW 14.5 (11.5-15.5) % Plt Count 267 (150-450) k/uL MPV 8.0 Neutrophils % 83 % Lymphocytes % 9 % Monocytes % 6 % Eosinophils % 2 % Basophils % 0 % Neutrophils # 9.3 H (1.3-7.7) k/uL Lymphocytes # 1.0 (1.0-4.8) k/uL Monocytes # 0.6 (0-1.0) k/uL Eosinophils # 0.2 (0-0.7) k/uL Basophils # 0.0 (0-0.2) k/uL PT 11.8 (9.0-12.0) sec INR 1.1 (<1.2) APTT 23.2 (22.0-30.0) sec D-Dimer 3.72 H (<0.60) mg/L FEU Sodium 137 (137-145) mmol/L Potassium 3.6 (3.5-5.1) mmol/L Chloride 104 (98-107) mmol/L Carbon Dioxide 22 (22-30) mmol/L Anion Gap 11 mmol/L BUN 14 (9-20) mg/dL Creatinine 1.02 (0.66-1.25) mg/dL Est GFR (CKD-EPI)AfAm >90 (>60 ml/min/1.73 sqM) Est GFR (CKD-EPI)NonAf >90 (>60 ml/min/1.73 sqM) Glucose 104 H (74-99) mg/dL Lactic Ac Sepsis Rflx Plasma Lactic Acid Moody (0.7-2.0) mmol/L Calcium 8.1 L (8.4-10.2) mg/dL Total Bilirubin 1.2 (0.2-1.3) mg/dL AST 427 H (17-59) U/L ALT 331 H (4-49) U/L Alkaline Phosphatase 154 H (38-126) U/L Troponin I (0.000-0.034) ng/mL NT-Pro-B Natriuret Pep pg/mL Total Protein 7.4 (6.3-8.2) g/dL Albumin 3.2 L (3.5-5.0) g/dL Urine Color Urine Appearance (Clear) Urine pH (5.0-8.0) Ur Specific [place] (1.001-1.035) Urine Protein (Negative) Urine Glucose (UA) (Negative) Urine Ketones (Negative) Urine Blood (Negative) Urine Nitrite (Negative) Urine Bilirubin (Negative) Urine Urobilinogen (<2.0) mg/dL Ur Leukocyte Esterase (Negative) Urine RBC (0-5) /hpf Urine WBC (0-5) /hpf Urine Opiates Screen (NotDetected) Ur Oxycodone Screen (NotDetected) Urine Methadone Screen (NotDetected) Ur Propoxyphene Screen (NotDetected) Ur Barbiturates Screen (NotDetected) U Tricyclic Antidepress (NotDetected) Ur Phencyclidine Scrn (NotDetected) Ur Amphetamines Screen (NotDetected) U Methamphetamines Scrn (NotDetected) U Benzodiazepines Scrn (NotDetected) Urine Cocaine Screen (NotDetected) U Marijuana (THC) Screen (NotDetected) Coronavirus (PCR) (Not Detectd) 07/26/21 07/26/21 07/26/21 Range/Units 19:37 19:37 19:37 WBC (3.8-10.6) k/uL RBC (4.30-5.90) m/uL Hgb (13.0-17.5) gm/dL Hct (39.0-53.0) % MCV (80.0-100.0) fL MCH (25.0-35.0) pg MCHC (31.0-37.0) g/dL RDW (11.5-15.5) % Plt Count (150-450) k/uL MPV Neutrophils % % Lymphocytes % % Monocytes % % Eosinophils % % Basophils % % Neutrophils # (1.3-7.7) k/uL Lymphocytes # (1.0-4.8) k/uL Monocytes # (0-1.0) k/uL Eosinophils # (0-0.7) k/uL Basophils # (0-0.2) k/uL PT (9.0-12.0) sec INR (<1.2) APTT (22.0-30.0) sec D-Dimer (<0.60) mg/L FEU Sodium (137-145) mmol/L Potassium (3.5-5.1) mmol/L Chloride (98-107) mmol/L Carbon Dioxide (22-30) mmol/L Anion Gap mmol/L BUN (9-20) mg/dL Creatinine (0.66-1.25) mg/dL Est GFR (CKD-EPI)AfAm (>60 ml/min/1.73 sqM) Est GFR (CKD-EPI)NonAf (>60 ml/min/1.73 sqM) Glucose (74-99) mg/dL Lactic Ac Sepsis Rflx Plasma Lactic Acid Moody 3.0 H* (0.7-2.0) mmol/L Calcium (8.4-10.2) mg/dL Total Bilirubin (0.2-1.3) mg/dL AST (17-59) U/L ALT (4-49) U/L Alkaline Phosphatase (38-126) U/L Troponin I 1.030 H* (0.000-0.034) ng/mL NT-Pro-B Natriuret Pep pg/mL Total Protein (6.3-8.2) g/dL Albumin (3.5-5.0) g/dL Urine Color Urine Appearance (Clear) Urine pH (5.0-8.0) Ur Specific [place] (1.001-1.035) Urine Protein (Negative) Urine Glucose (UA) (Negative) Urine Ketones (Negative) Urine Blood (Negative) Urine Nitrite (Negative) Urine Bilirubin (Negative) Urine Urobilinogen (<2.0) mg/dL Ur Leukocyte Esterase (Negative) Urine RBC (0-5) /hpf Urine WBC (0-5) /hpf Urine Opiates Screen Not Detected (NotDetected) Ur Oxycodone Screen Not Detected (NotDetected) Urine Methadone Screen Not Detected (NotDetected) Ur Propoxyphene Screen Not Detected (NotDetected) Ur Barbiturates Screen Not Detected (NotDetected) U Tricyclic Antidepress Not Detected (NotDetected) Ur Phencyclidine Scrn Not Detected (NotDetected) Ur Amphetamines Screen Detected H (NotDetected) U Methamphetamines Scrn Detected H (NotDetected) U Benzodiazepines Scrn Not Detected (NotDetected) Urine Cocaine Screen Not Detected (NotDetected) U Marijuana (THC) Screen Not Detected (NotDetected) Coronavirus (PCR) (Not Detectd) 07/26/21 07/26/21 07/26/21 Range/Units 19:37 19:37 20:10 WBC (3.8-10.6) k/uL RBC (4.30-5.90) m/uL Hgb (13.0-17.5) gm/dL Hct (39.0-53.0) % MCV (80.0-100.0) fL MCH (25.0-35.0) pg MCHC (31.0-37.0) g/dL RDW (11.5-15.5) % Plt Count (150-450) k/uL MPV Neutrophils % % Lymphocytes % % Monocytes % % Eosinophils % % Basophils % % Neutrophils # (1.3-7.7) k/uL Lymphocytes # (1.0-4.8) k/uL Monocytes # (0-1.0) k/uL Eosinophils # (0-0.7) k/uL Basophils # (0-0.2) k/uL PT (9.0-12.0) sec INR (<1.2) APTT (22.0-30.0) sec D-Dimer (<0.60) mg/L FEU Sodium (137-145) mmol/L Potassium (3.5-5.1) mmol/L Chloride (98-107) mmol/L Carbon Dioxide (22-30) mmol/L Anion Gap mmol/L BUN (9-20) mg/dL Creatinine (0.66-1.25) mg/dL Est GFR (CKD-EPI)AfAm (>60 ml/min/1.73 sqM) Est GFR (CKD-EPI)NonAf (>60 ml/min/1.73 sqM) Glucose (74-99) mg/dL Lactic Ac Sepsis Rflx Y Plasma Lactic Acid Moody (0.7-2.0) mmol/L Calcium (8.4-10.2) mg/dL Total Bilirubin (0.2-1.3) mg/dL AST (17-59) U/L ALT (4-49) U/L Alkaline Phosphatase (38-126) U/L Troponin I (0.000-0.034) ng/mL NT-Pro-B Natriuret Pep 74494 pg/mL Total Protein (6.3-8.2) g/dL Albumin (3.5-5.0) g/dL Urine Color Urine Appearance (Clear) Urine pH (5.0-8.0) Ur Specific [place] (1.001-1.035) Urine Protein (Negative) Urine Glucose (UA) (Negative) Urine Ketones (Negative) Urine Blood (Negative) Urine Nitrite (Negative) Urine Bilirubin (Negative) Urine Urobilinogen (<2.0) mg/dL Ur Leukocyte Esterase (Negative) Urine RBC (0-5) /hpf Urine WBC (0-5) /hpf Urine Opiates Screen (NotDetected) Ur Oxycodone Screen (NotDetected) Urine Methadone Screen (NotDetected) Ur Propoxyphene Screen (NotDetected) Ur Barbiturates Screen (NotDetected) U Tricyclic Antidepress (NotDetected) Ur Phencyclidine Scrn (NotDetected) Ur Amphetamines Screen (NotDetected) U Methamphetamines Scrn (NotDetected) U Benzodiazepines Scrn (NotDetected) Urine Cocaine Screen (NotDetected) U Marijuana (THC) Screen (NotDetected) Coronavirus (PCR) Not Detected (Not Detectd) 07/26/21 Range/Units 20:37 WBC (3.8-10.6) k/uL RBC (4.30-5.90) m/uL Hgb (13.0-17.5) gm/dL Hct (39.0-53.0) % MCV (80.0-100.0) fL MCH (25.0-35.0) pg MCHC (31.0-37.0) g/dL RDW (11.5-15.5) % Plt Count (150-450) k/uL MPV Neutrophils % % Lymphocytes % % Monocytes % % Eosinophils % % Basophils % % Neutrophils # (1.3-7.7) k/uL Lymphocytes # (1.0-4.8) k/uL Monocytes # (0-1.0) k/uL Eosinophils # (0-0.7) k/uL Basophils # (0-0.2) k/uL PT (9.0-12.0) sec INR (<1.2) APTT (22.0-30.0) sec D-Dimer (<0.60) mg/L FEU Sodium (137-145) mmol/L Potassium (3.5-5.1) mmol/L Chloride (98-107) mmol/L Carbon Dioxide (22-30) mmol/L Anion Gap mmol/L BUN (9-20) mg/dL Creatinine (0.66-1.25) mg/dL Est GFR (CKD-EPI)AfAm (>60 ml/min/1.73 sqM) Est GFR (CKD-EPI)NonAf (>60 ml/min/1.73 sqM) Glucose (74-99) mg/dL Lactic Ac Sepsis Rflx Plasma Lactic Acid Moody (0.7-2.0) mmol/L Calcium (8.4-10.2) mg/dL Total Bilirubin (0.2-1.3) mg/dL AST (17-59) U/L ALT (4-49) U/L Alkaline Phosphatase (38-126) U/L Troponin I (0.000-0.034) ng/mL NT-Pro-B Natriuret Pep pg/mL Total Protein (6.3-8.2) g/dL Albumin (3.5-5.0) g/dL Urine Color Light Yellow Urine Appearance Clear (Clear) Urine pH 6.0 (5.0-8.0) Ur Specific [place] 1.006 (1.001-1.035) Urine Protein 1+ H (Negative) Urine Glucose (UA) Negative (Negative) Urine Ketones Negative (Negative) Urine Blood Negative (Negative) Urine Nitrite Negative (Negative) Urine Bilirubin Negative (Negative) Urine Urobilinogen <2.0 (<2.0) mg/dL Ur Leukocyte Esterase Negative (Negative) Urine RBC 1 (0-5) /hpf Urine WBC <1 (0-5) /hpf Urine Opiates Screen (NotDetected) Ur Oxycodone Screen (NotDetected) Urine Methadone Screen (NotDetected) Ur Propoxyphene Screen (NotDetected) Ur Barbiturates Screen (NotDetected) U Tricyclic Antidepress (NotDetected) Ur Phencyclidine Scrn (NotDetected) Ur Amphetamines Screen (NotDetected) U Methamphetamines Scrn (NotDetected) U Benzodiazepines Scrn (NotDetected) Urine Cocaine Screen (NotDetected) U Marijuana (THC) Screen (NotDetected) Coronavirus (PCR) (Not Detectd) Critical Care Time Critical Care Time: Yes Total Critical Care Time: 35 Disposition Clinical Impression: Chest pain, Methamphetamine abuse, Pulmonary edema, Scrotal abscess, Dyspnea, Hypertensive urgency Disposition: ADMITTED IP TO THIS [facility] Condition: Fair
[2021-07-26] MEDS ORDERED: hydrALAZINE HCL 20 MG/ML 1 ML VIAL IVP STA ×2 (19:19→20:15)
[2021-07-26] MEDS ORDERED: LORazepam 2 MG/ML INJ IV STA ×3 (19:19→22:37)
[2021-07-26] MEDS: SODIUM CHLORIDE 0.9% 500 ML 500 ML IV SCH ×2 (19:20→19:46)
[2021-07-26 19:55] LABS: Basophils % (A) 0 %; Eosinophils # (A) 0.2 k/uL (0-0.7); Eosinophils % (A) 2 %; HCT 41.6 % (39.0-53.0); HGB 13.7 gm/dL (13.0-17.5); Lymphocytes % (A) 9 %; MCH 31.7 pg (25.0-35.0); Monocytes # (A) 0.6 k/uL (0-1.0); Monocytes % (A) 6 %; Neutrophils # (A) 9.3 k/uL (1.3-7.7); Neutrophils % (A) 83 %; Platelet Count 267 k/uL (150-450); RBC 4.33 m/uL (4.30-5.90); RDW 14.5 % (11.5-15.5); WBC 11.3 k/uL (3.8-10.6)
[2021-07-26] MEDS ORDERED: VANCOMYCIN 1,500 MG in SODIUM CHLORIDE 0.9% 250 ML IVPB ONE (20:00)
[2021-07-26 20:06] LABS: ALT 331 U/L (4-49); AST 427 U/L (17-59); African American GFR (CKD) >90 (>60 ml/min/1.73 sqM); Albumin 3.2 g/dL (3.5-5.0); Alkaline Phosphatase 154 U/L (38-126); Anion Gap 11 mmol/L; Blood Urea Nitrogen 14 mg/dL (9-20); Calcium 8.1 mg/dL (8.4-10.2); Carbon Dioxide 22 mmol/L (22-30); Chloride 104 mmol/L (98-107); Glucose 104 mg/dL (74-99); Non-African American GFR(CKD) >90 (>60 ml/min/1.73 sqM); Potassium 3.6 mmol/L (3.5-5.1); Sodium 137 mmol/L (137-145); Total Bilirubin 1.2 mg/dL (0.2-1.3); Total Protein 7.4 g/dL (6.3-8.2)
[2021-07-26 20:08] LABS: INR 1.1 (<1.2); Partial Thromboplastin Time 23.2 sec (22.0-30.0); Prothrombin Time 11.8 sec (9.0-12.0)
[2021-07-26 20:42] LABS: Appearance,Urine Clear (Clear); Bilirubin,Urine Negative (Negative); Blood,Urine Negative (Negative); Color,Urine Light Yellow; Glucose,Urine (UA) Negative (Negative); Ketones,Urine Negative (Negative); Leukocyte Esterase,Urine Negative (Negative); Nitrite,Urine Negative (Negative); Protein,Urine 1+ (Negative); RBC,Urine 1 /hpf (0-5); Specific Gravity,Urine 1.006 (1.001-1.035); Urobilinogen,Urine <2.0 mg/dL (<2.0); WBC,Urine <1 /hpf (0-5)
[2021-07-26 20:59] LABS: Amphetamine Screen,Urine Detected (NotDetected); Barbiturate Screen,Urine Not Detected (NotDetected); Benzodiazepines Screen,Urine Not Detected (NotDetected); Cocaine Screen,Urine Not Detected (NotDetected); Methadone Screen, Urine Not Detected (NotDetected); Opiate Screen,Urine Not Detected (NotDetected); Oxycodone Screen, Urine Not Detected (NotDetected); Phencyclidine Screen,Urine Not Detected (NotDetected); Tricyclic Antidepressant,Urine Not Detected (NotDetected); Urn Cannabinoid Scrn Not Detected (NotDetected)
--- NOTE | 2021-07-26 21:09 | XR ---
EXAMINATION TYPE: XR chest 2V DATE OF EXAM: 07/26/2021 COMPARISON: 10/27/2020. HISTORY: Fever. TECHNIQUE: Frontal and lateral views of the chest are obtained. FINDINGS: There is diffuse mild hazy opacity. No pleural effusion, or pneumothorax seen. Moderate to marked cardiomegaly. The osseous structures are intact. IMPRESSION: Diffuse mild opacities suggestive of interstitial edema/atelectasis.
[2021-07-26] MEDS ORDERED: LABETALOL 5 MG/ML VIAL MDV IVP STA (21:12)
[2021-07-26] MEDS ORDERED: ACETAMINOPHEN TAB 500 MG TAB PO STA (21:14)
[2021-07-26] MEDS ORDERED: LEVOFLOXACIN 750MG-D5W PMX 750 MG in DEXTROSE/WATER 1 150ML.BAG IVPB STA (21:15)
[2021-07-26] MEDS ORDERED: LEVOFLOXACIN 750MG-D5W PMX 750 MG in DEXTROSE/WATER 1 150ML.BAG IVPB SCH (21:15)
--- NOTE | 2021-07-26 21:18 | US ---
EXAMINATION TYPE: US scrotum with doppler. Grayscale and color Doppler Duplex imaging performed of t he scrotum. DATE OF EXAM: 07/26/2021 COMPARISON: NONE CLINICAL HISTORY: Abscess. Pain right testicle. Patient is a poor historian. Difficult exam as patien t is shaking during exam EXAM MEASUREMENTS: TESTICLES: Right Testicle: 3.9 x 2.7 x 2.3 cm Left Testicle: 4.1 x 2.3 x 2.5 cm EPIDIDYMIS HEAD: Right Epididymis: 1.7 cm Left Epididymis: 1.2 cm Doppler performed to assess for testicular vascularity; good bilateral color flow and waveforms are s een. There is no evidence of testicular torsion. Presence of hydroceles: Yes, on the right measuring 5.4 cm. Presence of varicoceles: No There is scrotal edema visualized. Right hydrocele. Epididymal cyst on the right measuring 0.4 cm. Ep ididymal cyst on the left measuring 0.5 cm IMPRESSION: Moderate right hydrocele and scrotal edema. No evidence of testicular torsion or significant hyperemia. Incidental benign epididymal cysts.
[2021-07-26] MEDS ORDERED: CEFEPIME 2 GM in SODIUM CHLORIDE 0.9% 100 ML IVPB STA (21:21)
--- NOTE | 2021-07-26 21:30 | CT ---
EXAMINATION TYPE: CT abdomen pelvis w con DATE OF EXAM: 07/26/2021 COMPARISON: None available. HISTORY: Scrotal pain. CT DLP: 1249.6 mGycm Automated exposure control for dose reduction was used. TECHNIQUE: Helical acquisition of images was performed from the lung bases through the pelvis. CONTRAST: Performed without Oral Contrast and with IV Contrast, patient injected with 100ml mL of Isovue 300. FINDINGS: LUNG BASES: Trace right pleural effusion with mild bibasilar opacities compatible with atelectasis. LIVER/GB: Trace perihepatic fluid. Otherwise no acute abnormality is appreciated. PANCREAS: No significant abnormality is seen. SPLEEN: No significant abnormality is seen. ADRENALS: No significant abnormality is seen. KIDNEYS: No acute abnormality is seen. 1.4 cm simple left renal cyst. FREE AIR: No free air is visualized. RETROPERITONEAL ADENOPATHY: None visualized REPRODUCTIVE ORGANS: No significant abnormality is seen URINARY BLADDER: No significant abnormality is seen. PELVIC ADENOPATHY: None visualized. OSSEOUS STRUCTURES: No significant abnormality is seen. BOWEL: No significant abnormality is seen. OTHER: Moderate right hydrocele with trace amount of air within the right scrotal wall. Associated sc rotal wall thickening. Mild kassidy appearance of the mesentery, compatible edema. IMPRESSION: Right hydrocele with trace amount of air within the right scrotal wall. Findings are concerning for i nfection. Margarita gangrene is better excluded clinically. Trace right pleural effusion and perihepatic fluid as well as mild mesenteric edema, may relate to th ird spacing. No bowel obstruction.
--- NOTE | 2021-07-26 21:38 | CT ---
EXAMINATION TYPE: CT chest angio for PE DATE OF EXAM: 07/26/2021 COMPARISON: Same-day radiograph. HISTORY: Elevated d-dimer and shortness of breath. CT DLP: 451.7 mGycm Automated exposure control for dose reduction was used. CONTRAST: CT Chest for pulmonary embolism performed with with IV Contrast, patient injected with 100ml mL of Is ovue 370. FINDINGS: LUNGS: There is mild hazy opacity in the bilateral lower lobes, right middle lobe and lingula. There is trace right pleural effusion. No pneumothorax seen. The tracheobronchial tree is patent. MEDIASTINUM: There is limited evaluation of the pulmonary artery distal segmental and subsegmental br anches. There is no CT evidence for central pulmonary embolism. There are no greater than 1 cm hilar or mediastinal lymph nodes. Cardiomegaly with trace pericardial effusion is seen. OTHER: No additional significant abnormality is seen. IMPRESSION: No acute PE within the limitations of the study. Trace right pleural effusion with mild atelectasis. Cardiomegaly.
[2021-07-26] MEDS ORDERED: HEPARIN SODIUM 1,000 UN/ML (10ML VL) IV ONE (23:07)
[2021-07-26] MEDS ORDERED: NITROGLYCERIN SL TABS 0.4 MG TAB SUBLINGUAL PRN (23:07)
[2021-07-26] MEDS: ASPIRIN 81 MG PO STA (23:54)
[2021-07-27] MEDS: HEPARIN SOD,PORK IN 0.45% NACL 25,000 UNIT in 0.45% NACL 1 250ML.BAG IV SCH ×2 (00:24→23:08)
[2021-07-27] MEDS: SODIUM CHLORIDE 0.9% 1,000 ML IV SCH ×3 (00:25→18:29)
[2021-07-27] MEDS: ASPIRIN 81 MG PO STA (00:35)
[2021-07-27] MEDS ORDERED: cloNIDine HCL 0.2 MG TAB PO PRN (01:57)
--- NOTE | 2021-07-27 02:38 | P.HPIM ---
History of Present Illness H&P Date: 07/27/21 Chief Complaint: scrotal pain 36 year old male with polysubstance abuse , hypertension , medical non compliance patient did not cooperate with the interview , and was unable to provide any meaningful history, which was obtained by talking to ER staff, and reviewing medical records patient comes in today with over 1 week history of scrotal pain , he reports some right sided scrotal pain , swelling and drainage. he indicates that he has history of abscess in the area. he also reports that he left AMA from [facility] where he was admitted for URI symptoms . he also admits to polysubstance abuse , meth and amphitamine. he is not taking his BP meds. in the ED, initial workup showed elevated D dimer, CTA of chest showed no acute PE. elevated troponins, with EKG showing lateral leads T wave inversion over V5 and V6, case discussed with cardiology who recommended , trops trendin g, quality assurance monitor body , and heparin drip. patient denied any active chest pain scrotal area showed erythema and swelling with tenderness to palpation , CT of abd pelvis showed possible evidence of infection along with right hydrocele and air within right scrotum urine drug screen positive for amphetamine and meth patient was started on cefepime and vanco , per urology recommendations patient was complaining of difficulty urinating, with abd pain , elevated blood pressure and tachycardia, jones cath inserted and drained 1 L of urine , after that he had immediate relief and blood pressure normalized. Review of Systems ROS unobtainable: due to mental status Past Medical History Past Medical History: Hypertension Additional Past Medical History / Comment(s): hx migraines History of Any Multi-Drug Resistant Organisms: None Reported Past Surgical History: No Surgical Hx Reported Additional Past Surgical History / Comment(s): fx Tibia and fibula, I&D testicle, Past Anesthesia/Blood Transfusion Reactions: No Reported Reaction Past Psychological History: ADD/ADHD, Anxiety, Depression Smoking Status: Current every day smoker Past Alcohol Use History: None Reported Past Drug Use History: None Reported, Cocaine, Marijuana - Past Family History Mother Family Medical History: Cancer Additional Family Medical History / Comment(s): cervical cancer Father Family Medical History: Cancer Additional Family Medical History / Comment(s): Father in 1997 from lung and liver cancer Medications and Allergies Home Medications Medication Instructions Recorded Confirmed Type Acetaminophen Tab [Tylenol Tab] 650 mg PO Q4H PRN #30 tablet 03/30/21 Rx Ibuprofen [Motrin] 600 mg PO Q8HR PRN #30 tab 03/30/21 Rx Nicotine 14Mg/24Hr Patch [Habitrol] 1 patch TRANSDERM DAILY #30 patch 03/30/21 Rx cloNIDine HCL 0.2 mg PO TID #90 tablet 03/30/21 Rx Allergies Allergy/AdvReac Type Severity Reaction Status Date / Time No Known Allergies Allergy Verified 03/28/21 07:17 Physical Exam Vitals: Vital Signs Temp Pulse Resp BP Pulse Ox 07/26/21 23:09 99.2 F 07/26/21 22:51 96 16 158/98 95 07/26/21 21:54 96 25 H 166/106 97 07/26/21 21:21 199/155 07/26/21 21:18 100.4 F H 122 H 28 H 234/146 07/26/21 20:23 114 H 25 H 206/123 95 07/26/21 19:59 111 H 18 206/130 98 07/26/21 19:20 104 H 18 209/142 07/26/21 18:51 98.1 F 107 H 22 198/129 98 Intake and Output 07/26/21 07/26/21 07/27/21 14:59 22:59 06:59 Output Total 1000 Balance -1000 Output: Urine 1000 Uretheral (Jones) 1000 Other: Weight 79.832 kg limited exam due to patient lack of cooperation Constitutional: moaning in pain , he would not like to be moved, and would rather sleep Eyes: Anicteric sclerae, moist conjunctiva, Pupils equal round reactive to light ENMT: NC/AT Oropharynx clear, no erythema, or exudates Neck: Supple, no masses, or JVD No carotid bruits No thyromegaly Lungs: Clear to auscultation Clear to percussion Normal respiratory effort, no accessory muscle use Cardiovascular: Heart regular in rate and rhythm, No murmurs, gallops, or rubs No peripheral edema Abdominal: Soft Nontender, no guarding, rebound or rigidity Abdomen moving with respiration Normoactive bowel sounds No hepatomegaly, No splenomegaly No palpable mass No abdominal wall hernia noted scrotal edema with tenderness to palpation and erythema over the right and posterior portion of the scrotum , inguinal region with no swelling , no crepitus , but very poor hygiene with foul smell , no active drainage noted , no tenderness over inguinal region , no erythema no tenderness over lower abd region . cremasteric reflex present bilaterally Skin: as described above, otherwise unremarkable Extremities: No digital cyanosis No clubbing Pedal pulses intact and symmetrical Radial pulses intact and symmetrical No calf tenderness Psychiatric: sleepy , refuses to cooperate Neuro unable to perform Lymphatics: no palpable cervical or supraclavicular , or inguinal lymph nodes Results CBC & Chem 7: 07/26/21 19:37 07/26/21 19:37 Labs: Abnormal Lab Results - Last 24 Hours (Table) 07/26/21 07/26/21 07/26/21 Range/Units 19:37 19:37 19:37 WBC 11.3 H (3.8-10.6) k/uL Neutrophils # 9.3 H (1.3-7.7) k/uL D-Dimer 3.72 H (<0.60) mg/L FEU Glucose 104 H (74-99) mg/dL Plasma Lactic Acid Moody (0.7-2.0) mmol/L Calcium 8.1 L (8.4-10.2) mg/dL AST 427 H (17-59) U/L ALT 331 H (4-49) U/L Alkaline Phosphatase 154 H (38-126) U/L Troponin I (0.000-0.034) ng/mL Albumin 3.2 L (3.5-5.0) g/dL Urine Protein (Negative) Ur Amphetamines Screen (NotDetected) U Methamphetamines Scrn (NotDetected) 07/26/21 07/26/21 07/26/21 Range/Units 19:37 19:37 19:37 WBC (3.8-10.6) k/uL Neutrophils # (1.3-7.7) k/uL D-Dimer (<0.60) mg/L FEU Glucose (74-99) mg/dL Plasma Lactic Acid Moody 3.0 H* (0.7-2.0) mmol/L Calcium (8.4-10.2) mg/dL AST (17-59) U/L ALT (4-49) U/L Alkaline Phosphatase (38-126) U/L Troponin I 1.030 H* (0.000-0.034) ng/mL Albumin (3.5-5.0) g/dL Urine Protein (Negative) Ur Amphetamines Screen Detected H (NotDetected) U Methamphetamines Scrn Detected H (NotDetected) 07/26/21 Range/Units 20:37 WBC (3.8-10.6) k/uL Neutrophils # (1.3-7.7) k/uL D-Dimer (<0.60) mg/L FEU Glucose (74-99) mg/dL Plasma Lactic Acid Moody (0.7-2.0) mmol/L Calcium (8.4-10.2) mg/dL AST (17-59) U/L ALT (4-49) U/L Alkaline Phosphatase (38-126) U/L Troponin I (0.000-0.034) ng/mL Albumin (3.5-5.0) g/dL Urine Protein 1+ H (Negative) Ur Amphetamines Screen (NotDetected) U Methamphetamines Scrn (NotDetected) Assessment and Plan Assessment: sepsis scrotal pain and swelling differential epididymo-orchitis , imaging showed a hydrocele , check N gonorrhea and Chlamydia UA unremarkable urology eval scrotal abscess cellulitis , rule out early fornier gangrene , patient started on vanco and zosyn , will add clindamycin ID consultation CT imaging ,did not show extension of the infectious process beyond the scrotal area. transaminitis check ESR, CRP , CK follow up cultures aggressive IVF hydration with normal saline urinary retention , s/p jones cath monitor urine output monitor renal function hypertension , poorly controlled , medical non compliance clonidine PRN for systolic > 180 patient received hydralazin in the ED supportive care aggressive IVF hydration pain control with morphine tylenol for fever NSTEMI cardology consult asa heparin drip per cardio recs EKG showed T wave inversion lateral leads elevated d dimer with recent history of respiratory symptoms at another facility CTA no acute PE supportive care COVID negative full code anticipated length of stay > 2 midnights anticipated discharge pending clincial course
[2021-07-27] MEDS: PIPERACILLIN-TAZOBACTAM 3.375 GM in SODIUM CHLORIDE 0.9% 100 ML IVPB SCH ×2 (02:51→09:58)
[2021-07-27] MEDS: CLINDAMYCIN 600 MG in DEXTROSE 5% IN WATER 50 ML IVPB SCH ×6 (02:53→12:07)
[2021-07-27 03:18] LABS: C Reactive Protein 3.8 mg/dL (<1.0)
[2021-07-27] MEDS ORDERED: VANCOMYCIN 1,500 MG in SODIUM CHLORIDE 0.9% 250 ML IVPB SCH (04:00)
[2021-07-27] MEDS ORDERED: CEFEPIME 2 GM in SODIUM CHLORIDE 0.9% 100 ML IVPB SCH (06:00)
[2021-07-27] MEDS: cloNIDine HCL 0.1 MG TAB PO SCH ×2 (08:31→15:31)
[2021-07-27] MEDS ORDERED: ASPIRIN 325 MG TAB PO SCH (09:00)
--- NOTE | 2021-07-27 10:56 | P.CRDCN ---
History of Present Illness History of present illness: HISTORY OF PRESENTING ILLNESS This is a pleasant 36-year-old male past medical history significant for hypertension, chronic nicotine dependence, polysubstance abuse, acute cholecystitis s/p Lap terese in 03/[address] Haynes. He does not follow with a skin diver. We have been asked to see in consultation for chest pain . Patient is seen and examined at bedside. Patient is alert with verbal stimuli, he is drowsy, drifts back to sleep quickly during exam. He appears comfortable, not in distress, breathing is regular, non-labored. He does states he has had chest pain for 1 week. He also states he has been having abdominal pain for the past couple months. He denies shortness of breath, nausea or diaphoresis. He points to his midsternal area and states "I have pain all over". States it is exertional but it is non-radiating. He cannot tell me how long it lasts or if still has chest pain now. He cannot tell me any alleviating factors. He states he has been told he has a had a "mild heart attack" before. He denies history of stroke, diabetes. He states he does smoke and has used heroin and cocaine before. He states he has hypertension but does not take any medication to treat this. Unable to tell me family history of cardiac disease. DIAGNOSTICS EKG reveals sinus tachycardia, T wave inversions in leads I, aVL, V4-V6. V4-V6 is new from prior EKG EKG this morning sinus rhythm HR 92, Twave inversions in leads V2-V6, I, aVL, prolonged QT 460 Telemetry tracings indicate sinus mechanism HR 80s, 4 beat run of NSVT Chest Xray- cardiomegaly. Chest CT- negative for PE, trace right pleural effusion with mild atelectasis. Cardiomegaly CT abdomen and pelvis revealed right hydrocele with trace amount of air within the right sclera wall. Findings are concerning for infection. Margarita gangrene is better excluded clinically Trace right pleural effusion and perihepatic f luid as well as mild mesenteric edema, may relate to third space. Laboratory reviewed, troponin 1.0, 0.8, 0.99, WBC 11.3, hemoglobin 13.7, platelets 267, d-dimer 0.72, sodium 137, potassium 3.6, BUN 14, serum creatinine 1.0, AST 427, ALT 23 1, alkaline phosphatase 154, creatine kinase 1186, proBNP 1 3,600, urine tox positive for amphetamines and methamphetamines, COVID-19 PCR negative REVIEW OF SYSTEMS At the time of my exam: CONSTITUTIONAL: Denies fever or chills. CARDIOVASCULAR: + chest pain, Denies shortness of breath, Denies orthopnea, PND or palpitations. RESPIRATORY: Denies cough. GASTROINTESTINAL: + abdominal pain, Denies diarrhea, constipation, nausea or vomiting. MUSCULOSKELETAL: Denies myalgias. NEUROLOGIC: Denies numbness, tingling, headacbe or weakness. ENDOCRINE: Denies fatigue, weight change, polydipsia or polyurina. GENITOURINARY: Denies burning, hematuria or urgency with micturation. HEMATOLOGIC: Denies history of anemia or bleeding. PHYSICAL EXAMINATION Blood pressure 168/106 heart rate 80 afebrile and maintaining oxygen saturation 99% on room air CONSTITUTIONAL: No apparent distress. HEENT: Head is normocephalic. Pupils are equal, round. Sclerae anicteric. Mucous membranes of the mouth are moist. No JVD. No carotid bruit. CHEST EXAMINATION: Lungs are clear to auscultation. No chest wall tenderness is noted on palpation or with deep breathing. HEART EXAMINATION: Regular rate and rhythm. S1, S2 heard. Systolic murmur noted. ABDOMEN: Soft, nontender. Positive bowel sounds. EXTREMITIES: 2+ peripheral pulses, no lower extremity edema and no calf tender ness. SKIN: warm, dry NEUROLOGIC EXAMINATION: Patient is awake, alert and oriented x3. ASSESSMENT Chest pain, atypical, non-specific EKG changes Elevated troponin, not indicative of acute coronary syndrome at this time, patient with elevated troponin in 2019. Hypertension Abdominal pain Chronic nicotine dependence Polysubstance abuse Transaminitis Scrotal abscess Right Hydrocele seen on CT History of cholecystitis s/p lap cholecystectomy in 03/2021 PLAN Obtain 2D echocardiogram and doppler study to assess cardiac structure and function. We will treat medically at this time with aspirin, statin Continue IV heparin for 24 hours Start lisinopril 5mg BID Smoking and substance abuse cessation discussed and highly recommended. Further recommendations based on clinical course. Thank you kindly for this consultation. Nurse Practitioner note has been reviewed, I agree with a documented findings and plan of care. Patient was seen and examined. Past Medical History Past Medical History: Hypertension Additional Past Medical History / Comment(s): hx migraines History of Any Multi-Drug Resistant Organisms: None Reported Past Surgical History: No Surgical Hx Reported Additional Past Surgical History / Comment(s): fx Tibia and fibula, I&D testicle, Past Anesthesia/Blood Transfusion Reactions: No Reported Reaction Past Psychological History: ADD/ADHD, Anxiety, Depression Smoking Status: Current every day smoker Past Alcohol Use History: None Reported Past Drug Use History: None Reported, Cocaine, Marijuana - Past Family History Mother Family Medical History: Cancer Additional Family Medical History / Comment(s): cervical cancer Father Family Medical History: Cancer Additional Family Medical History / Comment(s): Father in 1997 from lung and liver cancer Medications and Allergies Home Medications Medication Instructions Recorded Confirmed Type Unable To Assess [Unable to Assess] 07/27/21 07/27/21 History Allergies Allergy/AdvReac Type Severity Reaction Status Date / Time No Known Allergies Allergy Verified 07/27/21 09:29 Physical Exam Vitals: Vital Signs Temp Pulse Pulse Resp BP BP Pulse Ox 07/27/21 04:00 99.3 F 92 26 H 155/91 93 L 07/27/21 00:06 89 18 153/98 96 07/26/21 23:09 99.2 F 07/26/21 23:07 95 07/26/21 22:51 96 16 158/98 95 07/26/21 21:54 96 25 H 166/106 97 07/26/21 21:21 199/155 07/26/21 21:18 100.4 F H 122 H 28 H 234/146 07/26/21 20:23 114 H 25 H 206/123 95 07/26/21 19:59 111 H 18 206/130 98 07/26/21 19:20 104 H 18 209/142 07/26/21 18:51 98.1 F 107 H 22 198/129 98 Intake and Output 07/26/21 07/27/21 07/27/21 22:59 06:59 14:59 Output Total 1000 2500 Balance -1000 -2500 Output: Urine 1000 2500 Uretheral (Rose) 1000 Other: Voiding Method Indwelling Catheter Weight 79.832 kg 59.5 kg Results 07/26/21 19:37 07/26/21 19:37 Cardiac Enzymes 07/26/21 07/26/21 07/26/21 Range/Units 19:37 19:37 23:30 AST 427 H (17-59) U/L Troponin I 1.030 H* 0.849 H* (0.000-0.034) ng/mL 07/27/21 Range/Units 01:17 AST (17-59) U/L Troponin I 0.994 H* (0.000-0.034) ng/mL Coagulation 07/26/21 Range/Units 19:37 PT 11.8 (9.0-12.0) sec APTT 23.2 (22.0-30.0) sec CBC 07/26/21 Range/Units 19:37 WBC 11.3 H (3.8-10.6) k/uL RBC 4.33 (4.30-5.90) m/uL Hgb 13.7 (13.0-17.5) gm/dL Hct 41.6 (39.0-53.0) % Plt Count 267 (150-450) k/uL Comprehensive Metabolic Panel 07/26/21 Range/Units 19:37 Sodium 137 (137-145) mmol/L Potassium 3.6 (3.5-5.1) mmol/L Chloride 104 (98-107) mmol/L Carbon Dioxide 22 (22-30) mmol/L BUN 14 (9-20) mg/dL Creatinine 1.02 (0.66-1.25) mg/dL Glucose 104 H (74-99) mg/dL Calcium 8.1 L (8.4-10.2) mg/dL AST 427 H (17-59) U/L ALT 331 H (4-49) U/L Alkaline Phosphatase 154 H (38-126) U/L Total Protein 7.4 (6.3-8.2) g/dL Albumin 3.2 L (3.5-5.0) g/dL Current Medications Generic Name Dose Route Start Last Admin Trade Name Freq PRN Reason Stop Dose Admin Aspirin 325 mg 07/27/21 09:00 Aspirin 325 Mg Tab PO DAILY GIDEON Clonidine 0.2 mg 07/27/21 01:57 Clonidine Hcl 0.2 Mg Tab PO TID PRN Blood Pressure - High Vancomycin HCl 1,500 mg/ 250 mls @ 125 mls/hr 07/27/21 04:00 07/27/21 07:35 Sodium Chloride IVPB 125 mls/hr Q8H GIDEON Administration Sodium Chloride 1,000 mls @ 130 mls/hr 07/26/21 23:15 07/27/21 00:25 Saline 0.9% IV 100 mls/hr .Q7H42M GIDEON Administration Heparin Sodium/Sodium Chloride 250 mls @ 9.58 mls/hr 07/26/21 23:15 07/27/21 00:24 25,000 unit/ Sodium Chloride IV 12 units/kg/hr .Q24H GIDEON 9.58 mls/hr Administration Protocol 12 UNITS/KG/HR Piperacillin Sod/Tazobactam 100 mls @ 25 mls/hr 07/27/21 02:00 07/27/21 02:51 Sod 3.375 gm/ Sodium Chloride IVPB 25 mls/hr Q8H GIDEON Administration Clindamycin Phosphate 600 mg/ 54 mls @ 50 mls/hr 07/27/21 03:00 07/27/21 03:42 Dextrose/Water IVPB 50 mls/hr Q8H GIDEON Administration Miscellaneous Information 1 each 07/26/21 19:05 Vancomycin Iv Per Pharmacy 1 Each Misc MISCELLANE DIRECTED PRN Per Protocol Nitroglycerin 0.4 mg 07/26/21 23:07 Nitroglycerin Sl Tabs 0.4 Mg Tab SUBLINGUAL Q5M PRN Chest Pain Intake and Output 07/26/21 07/27/21 07/27/21 22:59 06:59 14:59 Output Total 1000 2500 Balance -1000 -2500 Output: Urine 1000 2500 Uretheral (Rose) 1000 Other: Voiding Method Indwelling Catheter Weight 79.832 kg 59.5 kg 07/26/21 19:37 07/26/21 19:37
--- NOTE | 2021-07-27 11:32 | ECHOF ---
Referral Reason:elevated troponin/BMP MEASUREMENTS -------- HEIGHT: 165.1 cm WEIGHT: 59.4 kg BP: IVSd: 1.4 cm (0.6 - 1.1) LVIDd: 5.2 cm (3.9 - 5.3) LVPWd: 2.6 cm (0.6 - 1.1) IVSs: 1.6 cm LVIDs: 4.9 cm LVPWs: 1.7 cm LA Diam: 4.7 cm (2.7 - 3.8) LAESV Index (A-L): 53.15 ml/m Ao Diam: 3.3 cm (2.0 - 3.7) AV Cusp: 2.1 cm (1.5 - 2.6) LA Diam: 5.1 cm (2.7 - 3.8) MV EXCURSION: 15.618 mm (> 18.000) MV EF SLOPE: 100 mm/s (70 - 150) EPSS: 0.8 cm MV E Charly: 1.02 m/s MV DecT: 129 ms MV A Charly: 0.69 m/s MV E/A Ratio: 1.49 RAP: 5.00 mmHg RVSP: 34.73 mmHg FINDINGS -------- Sinus rhythm. This was a technically good study. Pt. not compliant. There is moderate concentric left ventricular hypertrophy. Overall left ventricular systolic functi on is moderate-severely impaired with, an EF between 30 - 35 %. Anterseptal Hypokinesis Septal Hy pokinesis The right ventricle is normal in size. LA is severely dilated >40 ml/m2 The right atrial size is normal. The aortic valve is trileaflet, and appears structurally normal. No aortic stenosis or regurgitation. Mild mitral regurgitation is present. Mild tricuspid regurgitation present. Right ventricular systolic pressure is normal at < 35 mmHg. There is no pulmonic regurgitation present. There is a small, generalized pericardial effusion present. Small Pleural Effusion. CONCLUSIONS -------- 1. Pt. not compliant. 2. There is moderate concentric left ventricular hypertrophy. 3. Overall left ventricular systolic function is moderate-severely impaired with, an EF between 30 - 35 %. 4. Anterseptal Hypokinesis 5. Septal Hypokinesis 6. The right ventricle is normal in size. 7. LA is severely dilated >40 ml/m2 8. The right atrial size is normal. 9. The aortic valve is trileaflet, and appears structurally normal. No aortic stenosis or regurgitati on. 10. Mild mitral regurgitation is present. 11. Mild tricuspid regurgitation present. 12. There is a small, generalized pericardial effusion present. 13. Small Pleural Effusion. CAN TOP SETTER: Areli Cm RDCS
[2021-07-27 11:35] LABS: Chol/HDL Ratio 2.35; Cholesterol 87 mg/dL (0-200); Triglycerides <50.0 mg/dL (0.0-149.0)
[2021-07-27] MEDS: carvediloL 6.25 MG TAB PO SCH ×2 (12:06→18:01)
[2021-07-27] MEDS: ATORVASTATIN 40 MG TAB PO SCH (12:06)
[2021-07-27] MEDS: SPIRONOLACTONE 25 MG TAB PO SCH (12:06)
[2021-07-27] MEDS: lisinopriL 5 MG TAB PO SCH ×2 (12:06→20:55)
[2021-07-27] MEDS: VANCOMYCIN 1,500 MG in SODIUM CHLORIDE 0.9% 250 ML IVPB SCH ×2 (13:29→20:55)
--- NOTE | 2021-07-27 15:00 | P.PN ---
Subjective Progress Note Date: 07/27/21 Patient is lethargic but easily arousable today. He was not very cooperative and sitting questions. Objective - Vital Signs Vital signs: Vital Signs Temp 99.0 F 07/27/21 08:31 Pulse 89 07/27/21 12:08 Resp 16 07/27/21 14:04 BP 164/94 07/27/21 12:08 Pulse Ox 98 07/27/21 12:08 Intake & Output 07/26/21 07/27/21 07/27/21 18:59 06:59 18:59 Intake Total 0 Output Total 3500 700 Balance -3500 -700 Weight 79.832 kg 59.5 kg Intake: Oral 0 Output: Urine 3500 700 Uretheral (Jones) 1000 Other: Voiding Method Indwelling Catheter Indwelling Catheter - Exam General: The patient is awake and alert, in no distress Eye: there is normal conjunctiva bilaterally. Neck: The neck is supple, there is no JVD. Cardiovascular: Normal S1-S2, no S3-S4, no murmurs. Respiratory: Lungs clear to auscultation bilaterally Gastrointestinal: Abdomen is soft, nontender Musculoskeletal: There is no pedal edema. Neurological:. Speech is normal. Skin: Skin is warm and dry - Labs CBC & Chem 7: 07/26/21 19:37 07/26/21 19:37 Labs: Abnormal Lab Results - Last 24 Hours (Table) 07/26/21 07/26/21 07/26/21 Range/Units 19:37 19:37 19:37 WBC 11.3 H (3.8-10.6) k/uL Neutrophils # 9.3 H (1.3-7.7) k/uL ESR (0-15) mm/hr D-Dimer 3.72 H (<0.60) mg/L FEU Glucose 104 H (74-99) mg/dL Plasma Lactic Acid Moody (0.7-2.0) mmol/L Calcium 8.1 L (8.4-10.2) mg/dL AST 427 H (17-59) U/L ALT 331 H (4-49) U/L Alkaline Phosphatase 154 H (38-126) U/L Creatine Kinase (55-170) U/L Troponin I (0.000-0.034) ng/mL C-Reactive Protein (<1.0) mg/dL Albumin 3.2 L (3.5-5.0) g/dL HDL Cholesterol (40.0-60.0) mg/dL Urine Protein (Negative) Ur Amphetamines Screen (NotDetected) U Methamphetamines Scrn (NotDetected) 07/26/21 07/26/21 07/26/21 Range/Units 19:37 19:37 19:37 WBC (3.8-10.6) k/uL Neutrophils # (1.3-7.7) k/uL ESR (0-15) mm/hr D-Dimer (<0.60) mg/L FEU Glucose (74-99) mg/dL Plasma Lactic Acid Moody 3.0 H* (0.7-2.0) mmol/L Calcium (8.4-10.2) mg/dL AST (17-59) U/L ALT (4-49) U/L Alkaline Phosphatase (38-126) U/L Creatine Kinase (55-170) U/L Troponin I 1.030 H* (0.000-0.034) ng/mL C-Reactive Protein (<1.0) mg/dL Albumin (3.5-5.0) g/dL HDL Cholesterol (40.0-60.0) mg/dL Urine Protein (Negative) Ur Amphetamines Screen Detected H (NotDetected) U Methamphetamines Scrn Detected H (NotDetected) 07/26/21 07/26/21 07/27/21 Range/Units 20:37 23:30 01:17 WBC (3.8-10.6) k/uL Neutrophils # (1.3-7.7) k/uL ESR (0-15) mm/hr D-Dimer (<0.60) mg/L FEU Glucose (74-99) mg/dL Plasma Lactic Acid Moody (0.7-2.0) mmol/L Calcium (8.4-10.2) mg/dL AST (17-59) U/L ALT (4-49) U/L Alkaline Phosphatase (38-126) U/L Creatine Kinase (55-170) U/L Troponin I 0.849 H* 0.994 H* (0.000-0.034) ng/mL C-Reactive Protein (<1.0) mg/dL Albumin (3.5-5.0) g/dL HDL Cholesterol (40.0-60.0) mg/dL Urine Protein 1+ H (Negative) Ur Amphetamines Screen (NotDetected) U Methamphetamines Scrn (NotDetected) 07/27/21 07/27/21 07/27/21 Range/Units 02:44 02:44 02:44 WBC (3.8-10.6) k/uL Neutrophils # (1.3-7.7) k/uL ESR 26 H (0-15) mm/hr D-Dimer (<0.60) mg/L FEU Glucose (74-99) mg/dL Plasma Lactic Acid Moody (0.7-2.0) mmol/L Calcium (8.4-10.2) mg/dL AST (17-59) U/L ALT (4-49) U/L Alkaline Phosphatase (38-126) U/L Creatine Kinase 1186 H* (55-170) U/L Troponin I (0.000-0.034) ng/mL C-Reactive Protein 3.8 H (<1.0) mg/dL Albumin (3.5-5.0) g/dL HDL Cholesterol 37.0 L (40.0-60.0) mg/dL Urine Protein (Negative) Ur Amphetamines Screen (NotDetected) U Methamphetamines Scrn (NotDetected) Microbiology - Last 24 Hours (Table) 07/26/21 19:37 Gram Stain - Preliminary Other - Other Wound Culture - Preliminary Assessment and Plan Assessment: This is a 36-year-old male with past medical history significant for polysubstance abuse who presented to the emergency room with scrotal swelling and pain. Patient was evaluated in the ER and admitted to the hospital for further management of his medical problems noted below. sepsis scrotal pain and swelling scrotal abscess cellulitis , rule out early fornier gangrene , differential epididymo-orchitis , imaging showed a hydrocele , check N gonorrhea and Chlamydia ending UA unremarkable urology eval pending Continue broad spectrum antibiotic patient started on vanco and zosyn , will add clindamycin ID consultation CT imaging ,did not show extension of the infectious process beyond the scrotal area. follow up cultures aggressive IVF hydration with normal saline urinary retention , s/p jones cath monitor urine output monitor renal function hypertension , poorly controlled , medical non compliance clonidine PRN for systolic > 180 patient received hydralazin in the ED supportive care aggressive IVF hydration pain control with morphine tylenol for fever Troponin elevation and chest pain NSTEMI ruled out by cardiology Echocardiogram pending IV heparin for 24 hours cardiology recommendation asa EKG showed T wave inversion lateral leads elevated d dimer CTA no acute PE COVID negative full code anticipated discharge pending clincial course
[2021-07-27] MEDS: HEPARIN SODIUM 1,000 UN/ML (10ML VL) IV PRN (15:30)
[2021-07-27] MEDS: AMPICILLIN-SULBACTAM 3 GM in SODIUM CHLORIDE 0.9% 100 ML IVPB SCH (18:00)
[2021-07-27] MEDS ORDERED: hydrALAZINE HCL 20 MG/ML 1 ML VIAL IVP STA (18:17)
[2021-07-27] MEDS: cloNIDine HCL 0.2 MG TAB PO SCH (20:55)
--- NOTE | 2021-07-27 21:32 | P.GSCN ---
History of Present Illness Consult date: 07/27/21 Reason for Consult: Scrotal abscess History of present illness: This is a 36-year-old male that presents to the hospital with cough and shortne ss of breath. Initial evaluation in the ED also showed evidence of tropes elevation and EKG changes. Urology is consulted for scrotal abscess, patient was not cooperative during evaluation, but based on chart review it appears that he has been having symptoms for about a week, has noticed some drainage in the scrotum. He does have history of previous scrotal abscess. He underwent a CT that showed trace of air within the scrotum, on exam no signs of fourniers gangrene. On presentation his temp was 100.4, but he has remained afebrile since hospital admission. He underwent a scrotal U/S which was only significant for hydrocele and scrotal edema Review of Systems - Constitutional Reports fatigue, Denies chills, Denies fever - EENT Ears, nose, mouth and throat: Denies dysphagia - Cardiovascular Reports chest pain - Respiratory Reports cough, Reports dyspnea - Gastrointestinal Reports abdominal pain - Genitourinary Reports testicular pain, Denies dysuria, Denies flank pain - Neurological Denies headaches, Denies syncope Past Medical History Past Medical History: Hypertension Additional Past Medical History / Comment(s): hx migraines History of Any Multi-Drug Resistant Organisms: None Reported Past Surgical History: No Surgical Hx Reported Additional Past Surgical History / Comment(s): fx Tibia and fibula, I&D testicle , Past Anesthesia/Blood Transfusion Reactions: No Reported Reaction Past Psychological History: ADD/ADHD, Anxiety, Depression Smoking Status: Current every day smoker Past Alcohol Use History: None Reported Past Drug Use History: None Reported, Cocaine, Marijuana - Past Family History Mother Family Medical History: Cancer Additional Family Medical History / Comment(s): cervical cancer Father Family Medical History: Cancer Additional Family Medical History / Comment(s): Father in 1997 from lung and liver cancer Medications and Allergies Home Medications Medication Instructions Recorded Confirmed Type Unable To Assess [Unable to Assess] 07/27/21 07/27/21 History Allergies Allergy/AdvReac Type Severity Reaction Status Date / Time No Known Allergies Allergy Verified 07/27/21 09:29 Surgical - Exam Vital Signs Temp Pulse Resp BP Pulse Ox 98.1 F 107 H 22 198/129 98 07/26/21 18:51 07/26/21 18:51 07/26/21 18:51 07/26/21 18:51 07/26/21 18:51 - General no distress, moderate pain - Eyes PERRL, normal ocular movement - ENT normal nares, normal mucosa - Respiratory normal expansion, normal respiratory effort - Abdomen Abdomen: soft, non tender - Genitourinary bilateral normal testes an area of fluctance along the right scrotum, area of fluctance drains into a sinus in the inferior portion of scrotum. - Psychiatric oriented to time, oriented to person, oriented to place Results - Labs 07/26/21 19:37 07/26/21 19:37 Abnormal Lab Results - Last 24 Hours (Table) 07/26/21 07/26/21 07/26/21 Range/Units 19:37 19:37 19:37 WBC 11.3 H (3.8-10.6) k/uL Neutrophils # 9.3 H (1.3-7.7) k/uL ESR (0-15) mm/hr D-Dimer 3.72 H (<0.60) mg/L FEU Glucose 104 H (74-99) mg/dL Plasma Lactic Acid Moody (0.7-2.0) mmol/L Calcium 8.1 L (8.4-10.2) mg/dL AST 427 H (17-59) U/L ALT 331 H (4-49) U/L Alkaline Phosphatase 154 H (38-126) U/L Creatine Kinase (55-170) U/L Troponin I (0.000-0.034) ng/mL C-Reactive Protein (<1.0) mg/dL Albumin 3.2 L (3.5-5.0) g/dL HDL Cholesterol (40.0-60.0) mg/dL Urine Protein (Negative) Ur Amphetamines Screen (NotDetected) U Methamphetamines Scrn (NotDetected) 07/26/21 07/26/21 07/26/21 Range/Units 19:37 19:37 19:37 WBC (3.8-10.6) k/uL Neutrophils # (1.3-7.7) k/uL ESR (0-15) mm/hr D-Dimer (<0.60) mg/L FEU Glucose (74-99) mg/dL Plasma Lactic Acid Moody 3.0 H* (0.7-2.0) mmol/L Calcium (8.4-10.2) mg/dL AST (17-59) U/L ALT (4-49) U/L Alkaline Phosphatase (38-126) U/L Creatine Kinase (55-170) U/L Troponin I 1.030 H* (0.000-0.034) ng/mL C-Reactive Protein (<1.0) mg/dL Albumin (3.5-5.0) g/dL HDL Cholesterol (40.0-60.0) mg/dL Urine Protein (Negative) Ur Amphetamines Screen Detected H (NotDetected) U Methamphetamines Scrn Detected H (NotDetected) 07/26/21 07/26/21 07/27/21 Range/Units 20:37 23:30 01:17 WBC (3.8-10.6) k/uL Neutrophils # (1.3-7.7) k/uL ESR (0-15) mm/hr D-Dimer (<0.60) mg/L FEU Glucose (74-99) mg/dL Plasma Lactic Acid Moody (0.7-2.0) mmol/L Calcium (8.4-10.2) mg/dL AST (17-59) U/L ALT (4-49) U/L Alkaline Phosphatase (38-126) U/L Creatine Kinase (55-170) U/L Troponin I 0.849 H* 0.994 H* (0.000-0.034) ng/mL C-Reactive Protein (<1.0) mg/dL Albumin (3.5-5.0) g/dL HDL Cholesterol (40.0-60.0) mg/dL Urine Protein 1+ H (Negative) Ur Amphetamines Screen (NotDetected) U Methamphetamines Scrn (NotDetected) 07/27/21 07/27/21 07/27/21 Range/Units 02:44 02:44 02:44 WBC (3.8-10.6) k/uL Neutrophils # (1.3-7.7) k/uL ESR 26 H (0-15) mm/hr D-Dimer (<0.60) mg/L FEU Glucose (74-99) mg/dL Plasma Lactic Acid Moody (0.7-2.0) mmol/L Calcium (8.4-10.2) mg/dL AST (17-59) U/L ALT (4-49) U/L Alkaline Phosphatase (38-126) U/L Creatine Kinase 1186 H* (55-170) U/L Troponin I (0.000-0.034) ng/mL C-Reactive Protein 3.8 H (<1.0) mg/dL Albumin (3.5-5.0) g/dL HDL Cholesterol 37.0 L (40.0-60.0) mg/dL Urine Protein (Negative) Ur Amphetamines Screen (NotDetected) U Methamphetamines Scrn (NotDetected) Microbiology - Last 24 Hours (Table) 07/26/21 19:37 Gram Stain - Preliminary Other - Other Wound Culture - Preliminary Diabetes panel 07/26/21 07/27/21 Range/Units 19:37 02:44 Sodium 137 (137-145) mmol/L Potassium 3.6 (3.5-5.1) mmol/L Chloride 104 (98-107) mmol/L Carbon Dioxide 22 (22-30) mmol/L BUN 14 (9-20) mg/dL Creatinine 1.02 (0.66-1.25) mg/dL Glucose 104 H (74-99) mg/dL Calcium 8.1 L (8.4-10.2) mg/dL AST 427 H (17-59) U/L ALT 331 H (4-49) U/L Alkaline Phosphatase 154 H (38-126) U/L Total Protein 7.4 (6.3-8.2) g/dL Albumin 3.2 L (3.5-5.0) g/dL Triglycerides <50.0 (0.0-149.0) mg/dL HDL Cholesterol 37.0 L (40.0-60.0) mg/dL Calcium panel 07/26/21 Range/Units 19:37 Calcium 8.1 L (8.4-10.2) mg/dL Albumin 3.2 L (3.5-5.0) g/dL Pituitary panel 07/26/21 Range/Units 19:37 Sodium 137 (137-145) mmol/L Potassium 3.6 (3.5-5.1) mmol/L Chloride 104 (98-107) mmol/L Carbon Dioxide 22 (22-30) mmol/L BUN 14 (9-20) mg/dL Creatinine 1.02 (0.66-1.25) mg/dL Glucose 104 H (74-99) mg/dL Calcium 8.1 L (8.4-10.2) mg/dL Adrenal panel 07/26/21 Range/Units 19:37 Sodium 137 (137-145) mmol/L Potassium 3.6 (3.5-5.1) mmol/L Chloride 104 (98-107) mmol/L Carbon Dioxide 22 (22-30) mmol/L BUN 14 (9-20) mg/dL Creatinine 1.02 (0.66-1.25) mg/dL Glucose 104 H (74-99) mg/dL Calcium 8.1 L (8.4-10.2) mg/dL Total Bilirubin 1.2 (0.2-1.3) mg/dL AST 427 H (17-59) U/L ALT 331 H (4-49) U/L Alkaline Phosphatase 154 H (38-126) U/L Total Protein 7.4 (6.3-8.2) g/dL Albumin 3.2 L (3.5-5.0) g/dL Assessment and Plan Assessment: 36 yo male with right sided scrotal abscess, CT showed trace of air. On evaluation no signs of erythema or fourniers gangrene. The abscess is partially draining through sinus tract in inferior portion of scrotum. I attempted to open abscess to allow for improved drainage but patient did not tolerate at bedside. Discussed option of doing it in the operating room, patient refused discussed with him potential of progression and worsening of infection, discussed potential of becoming septic secondary to inadequate drainage of abscess. He continued to refuse any intervention and understood the risk of progression. -Keep NPO past MN, will rediscuss I&D with him tomorrow -continue IV abx
--- NOTE | 2021-07-27 22:56 | P.CONS ---
History of Present Illness - Reason for Consult Consult date: 07/27/21 scrotal cellulitis Requesting physician: Nawaf Tomas - Chief Complaint scrotal pain and swelling x few days - History of Present Illness History of present illness : Patient is 36-year-old male presenting to the ER yesterday coughing for shortness of breath and also been complaining of swelling to the right testicle area and some drainage of pus the patient symptom has been going on for few days before presentation to hospital describing the pain to be more of a sharp in nature 6-7 out of 10 had no radiation patient did have some chills but denies high-grade fever with the symptom the patient has been evaluated by the ER physician on arrival to the ER the patient did have a fever of 100.4 degree form height patient is currently 97% on room air he did have elevated troponin urine has been negative white count was 11.3 D-dimer 3.72 creatinine was normal liver enzymes are elevated urine drug screen was positive for methamphetamines and amphetamines: The patient has been negative patient did have blood cultures drawn as well as culture from the scrotal area scrotal ultrasound moderate right hydrocele and scrotal edema patient did have a CT of abdominal pelvis right hydrocele with trace amount of air within the right scrotal wall concerning for infection CT angiogram of the chest no PE trace effusion and mild atelectasis patient was started on clindamycin Zosyn and vancomycin infectious disease was consulted for further management of antibiotic therapy Review of system: CONSTITUTIONAL: Positive for weakness along with the fever. EYES: No complaint. ENT: No complaint. RESPIRATORY: No complaint. CARDIOVASCULAR: No complaint. GENITOURINARY: As per history of present illness. GASTROINTESTINAL: No complaint. MUSCULOSKELETAL: No complaint. INTEGUMENTARY: No complaint. PSYCHOLOGIC: No complaint. ENDOCRINE: No complaint. NEUROLOGIC: No complaint. Past medical history : Reviewed, documented below Past surgical history : Reviewed, documented below Social history: Reviewed, documented below Medications: Reviewed, as documented below EXAMINATION: Vital sigans= Reviewed and documented below GENERAL DESCRIPTION: Middle-aged male lying in bed, no distress. No tachypnea or accessory muscle of respiration use. HEENT: Shows Pallor , no scleral icterus. Oral mucous membrane is dry. NECK: Trachea central, no thyromegaly. LUNGS: Unlabored breathing. Clear to auscultation anteriorly. No wheeze or crackle. HEART: S1, S2, regular rate and rhythm. ABDOMEN: Soft, no tenderness , guarding or rigidity : Patient did have mild scrotal swelling a superficial wound no significant drainage was noticed tender to touch EXTREMITIES: No edema of feet. SKIN: No rash, no masses palpable. NEUROLOGICAL: The patient is awake, alert, oriented x3, mood and affect normal. LABS AND RADIOLOGY: Reviewed results see below Assessment : Patient presented to hospital with scrotal pain in this patient who did have a scrotal edema possible cellulitis with no evidence of any drainable abscess and will need to cover for both gram-positive skin kriss as well as gram-negative pathogen with no evidence clinically of Margarita's gangrene Plan: 1-vancomycin pharmacy to dose with a target trough of 15 while watching her kidney function and Vanco trough closely. 2-discontinue Zosyn and clindamycin 3-Unasyn 3 g every 6 hours We will follow on clinical condition and cultures to further adjust medication if needed Thank you for this consultation we will follow the patient along with you Past Medical History Past Medical History: Hypertension Additional Past Medical History / Comment(s): hx migraines History of Any Multi-Drug Resistant Organisms: None Reported Past Surgical History: No Surgical Hx Reported Additional Past Surgical History / Comment(s): fx Tibia and fibula, I&D testicle, Past Anesthesia/Blood Transfusion Reactions: No Reported Reaction Past Psychological History: ADD/ADHD, Anxiety, Depression Smoking Status: Current every day smoker Past Alcohol Use History: None Reported Past Drug Use History: None Reported, Cocaine, Marijuana - Past Family History Mother Family Medical History: Cancer Additional Family Medical History / Comment(s): cervical cancer Father Family Medical History: Cancer Additional Family Medical History / Comment(s): Father in 1997 from lung and liver cancer Medications and Allergies Home Medications Medication Instructions Recorded Confirmed Type Unable To Assess [Unable to Assess] 07/27/21 07/27/21 History Allergies Allergy/AdvReac Type Severity Reaction Status Date / Time No Known Allergies Allergy Verified 07/27/21 09:29 Physical Exam Vitals: Vital Signs Temp Pulse Pulse Resp BP BP Pulse Ox 07/27/21 14:04 16 07/27/21 12:08 89 16 164/94 98 07/27/21 08:31 99.0 F 80 16 168/106 99 07/27/21 04:00 99.3 F 92 26 H 155/91 93 L 07/27/21 00:06 89 18 153/98 96 07/26/21 23:09 99.2 F 07/26/21 23:07 95 07/26/21 22:51 96 16 158/98 95 07/26/21 21:54 96 25 H 166/106 97 07/26/21 21:21 199/155 07/26/21 21:18 100.4 F H 122 H 28 H 234/146 07/26/21 20:23 114 H 25 H 206/123 95 07/26/21 19:59 111 H 18 206/130 98 07/26/21 19:20 104 H 18 209/142 07/26/21 18:51 98.1 F 107 H 22 198/129 98 Intake and Output 07/27/21 07/27/21 07/27/21 06:59 14:59 22:59 Intake Total 180 144.658 Output Total 2500 700 300 Balance -2500 -520 -155.342 Intake: Intake, IV Titration 144.658 Amount Heparin Sod,Pork in 0.45% 144.658 NaCl 25,000 unit In 0.45 % NaCl 1 250ml.bag @ 12 UNITS/KG/HR 9.58 mls/hr IV .Q24H [facility] Rx#: [id number] Oral 180 Output: Urine 2500 700 300 Other: Voiding Method Indwelling Catheter Indwelling Catheter Weight 59.5 kg Results CBC & Chem 7: 07/26/21 19:37 07/26/21 19:37 Labs: Abnormal Lab Results - Last 24 Hours (Table) 07/26/21 07/26/21 07/26/21 Range/Units 19:37 19:37 19:37 WBC 11.3 H (3.8-10.6) k/uL Neutrophils # 9.3 H (1.3-7.7) k/uL ESR (0-15) mm/hr D-Dimer 3.72 H (<0.60) mg/L FEU Glucose 104 H (74-99) mg/dL Plasma Lactic Acid Moody (0.7-2.0) mmol/L Calcium 8.1 L (8.4-10.2) mg/dL AST 427 H (17-59) U/L ALT 331 H (4-49) U/L Alkaline Phosphatase 154 H (38-126) U/L Creatine Kinase (55-170) U/L Troponin I (0.000-0.034) ng/mL C-Reactive Protein (<1.0) mg/dL Albumin 3.2 L (3.5-5.0) g/dL HDL Cholesterol (40.0-60.0) mg/dL Urine Protein (Negative) Ur Amphetamines Screen (NotDetected) U Methamphetamines Scrn (NotDetected) 07/26/21 07/26/21 07/26/21 Range/Units 19:37 19:37 19:37 WBC (3.8-10.6) k/uL Neutrophils # (1.3-7.7) k/uL ESR (0-15) mm/hr D-Dimer (<0.60) mg/L FEU Glucose (74-99) mg/dL Plasma Lactic Acid Moody 3.0 H* (0.7-2.0) mmol/L Calcium (8.4-10.2) mg/dL AST (17-59) U/L ALT (4-49) U/L Alkaline Phosphatase (38-126) U/L Creatine Kinase (55-170) U/L Troponin I 1.030 H* (0.000-0.034) ng/mL C-Reactive Protein (<1.0) mg/dL Albumin (3.5-5.0) g/dL HDL Cholesterol (40.0-60.0) mg/dL Urine Protein (Negative) Ur Amphetamines Screen Detected H (NotDetected) U Methamphetamines Scrn Detected H (NotDetected) 07/26/21 07/26/21 07/27/21 Range/Units 20:37 23:30 01:17 WBC (3.8-10.6) k/uL Neutrophils # (1.3-7.7) k/uL ESR (0-15) mm/hr D-Dimer (<0.60) mg/L FEU Glucose (74-99) mg/dL Plasma Lactic Acid Moody (0.7-2.0) mmol/L Calcium (8.4-10.2) mg/dL AST (17-59) U/L ALT (4-49) U/L Alkaline Phosphatase (38-126) U/L Creatine Kinase (55-170) U/L Troponin I 0.849 H* 0.994 H* (0.000-0.034) ng/mL C-Reactive Protein (<1.0) mg/dL Albumin (3.5-5.0) g/dL HDL Cholesterol (40.0-60.0) mg/dL Urine Protein 1+ H (Negative) Ur Amphetamines Screen (NotDetected) U Methamphetamines Scrn (NotDetected) 07/27/21 07/27/21 07/27/21 Range/Units 02:44 02:44 02:44 WBC (3.8-10.6) k/uL Neutrophils # (1.3-7.7) k/uL ESR 26 H (0-15) mm/hr D-Dimer (<0.60) mg/L FEU Glucose (74-99) mg/dL Plasma Lactic Acid Moody (0.7-2.0) mmol/L Calcium (8.4-10.2) mg/dL AST (17-59) U/L ALT (4-49) U/L Alkaline Phosphatase (38-126) U/L Creatine Kinase 1186 H* (55-170) U/L Troponin I (0.000-0.034) ng/mL C-Reactive Protein 3.8 H (<1.0) mg/dL Albumin (3.5-5.0) g/dL HDL Cholesterol 37.0 L (40.0-60.0) mg/dL Urine Protein (Negative) Ur Amphetamines Screen (NotDetected) U Methamphetamines Scrn (NotDetected) Microbiology - Last 24 Hours (Table) 07/26/21 19:37 Gram Stain - Preliminary Other - Other Wound Culture - Preliminary
[2021-07-28] MEDS: AMPICILLIN-SULBACTAM 3 GM in SODIUM CHLORIDE 0.9% 100 ML IVPB SCH ×3 (01:18→11:52)
[2021-07-28] MEDS: HEPARIN SODIUM 1,000 UN/ML (10ML VL) IV PRN (01:18)
[2021-07-28] MEDS: SODIUM CHLORIDE 0.9% 1,000 ML IV SCH (04:36)
[2021-07-28] MEDS ORDERED: VANCOMYCIN TROUGH DUE 1 EACH MISC MISCELLANE ONE (05:00)
--- NOTE | 2021-07-28 07:46 | P.PN ---
Subjective Progress Note Date: 07/28/21 We are seeing the patient for a possible scrotal abscess. He was seen by dr martinez yesterday. THe patient unfortuantely refused recommendations. Today he is seen He is not febrile. On exam there is no scrotal edema. He is slightly tender. There is slight induration. At present there really is not any significant abscess noted. He is not interested in any urological evaluation. He should continue with antibiotics and we will continue to monitor the scrotum Objective - Vital Signs Vital signs: Vital Signs Temp 97.8 F 07/28/21 04:35 Pulse 85 07/28/21 04:35 Resp 18 07/28/21 04:35 BP 135/86 07/28/21 04:35 Pulse Ox 99 07/28/21 04:35 Intake & Output 07/27/21 07/28/21 07/28/21 18:59 06:59 18:59 Intake Total 324.658 118.512 Output Total 1000 525 Balance -675.342 -406.488 Weight 76.8 kg Intake: Intake, IV Titration 144.658 118.512 Amount Heparin Sod,Pork in 0.45% 144.658 118.512 NaCl 25,000 unit In 0.45 % NaCl 1 250ml.bag @ 12 UNITS/KG/HR 9.58 mls/hr IV .Q24H [facility] Rx#: [id number] Oral 180 Output: Urine 1000 525 Other: Voiding Method Indwelling Catheter Indwelling Catheter # Voids 1 - Labs CBC & Chem 7: 07/26/21 19:37 07/26/21 19:37 Labs: Abnormal Lab Results - Last 24 Hours (Table) 07/27/21 07/27/21 Range/Units 01:17 02:44 Troponin I 0.994 H* (0.000-0.034) ng/mL HDL Cholesterol 37.0 L (40.0-60.0) mg/dL Microbiology - Last 24 Hours (Table) 07/26/21 19:37 Gram Stain - Preliminary Other - Other Wound Culture - Preliminary Gram Neg Bacilli Gram Neg Bacilli#2 07/26/21 19:37 Blood Culture - Preliminary Blood No Growth after 24 hours 07/26/21 19:37 Blood Culture - Preliminary Blood No Growth after 24 hours
[2021-07-28] MEDS: SPIRONOLACTONE 25 MG TAB PO SCH (09:30)
[2021-07-28] MEDS: ATORVASTATIN 40 MG TAB PO SCH (09:30)
[2021-07-28] MEDS: carvediloL 6.25 MG TAB PO SCH (09:30)
[2021-07-28] MEDS: ASPIRIN 81 MG PO SCH (09:30)
[2021-07-28] MEDS: lisinopriL 5 MG TAB PO SCH ×2 (09:30→20:38)
--- NOTE | 2021-07-28 09:50 | P.PN ---
Subjective This is a pleasant 36-year-old male past medical history significant for hypertension, chronic nicotine dependence, polysubstance abuse, acute cholec ystitis s/p Lap terese in 03/[address] Haynes. He does not follow with a [employer] lo[employer] carpet we[employer]. We have been asked to see in consultation for chest pain. Patient was found to have elevated troponin 1.0, 0.8, 0.99, with non-specific EKG changes. Patient was also found to have scrotal abscess. Urology evaluated the patient, attempted I&D at bedside but patient did not tolerate at bedside. Patient is seen and examined at bedside this morning, no acute distress. Patient denies any chest pain, shortness of breath, lightheadedness, dizziness, palpitations. Telemetry reviewed patient in sinus mechanism heart rate 80s-90s. Echocardiogram revealed EF 3035 percent, moderate concentric left ventricular hypertrophy, anterior septal hypokinesis, septal hypokinesis, LA severely dilated, mild mitral regurgitation, mild thickness regurgitation, small pleural effusion, small generalized pericardial effusion. Patient was given IV hydralazine 5mg once last night for BP 180s/100s. Patient currently maintained on aspirin 81mg daily, atorvastatin 40 mg daily, carvedilol 6.5 mg twice a day, lisinopril 5 mg twice a day, spironolactone 25 mg daily PHYSICAL EXAMINATION Blood pressure 135/86, heart rate 85, afebrile, maintaining oxygen saturations 99% on room air. CONSTITUTIONAL: No apparent distress. HEENT: Neck Supple No JVD. CHEST EXAMINATION: Lungs are clear to auscultation. No chest wall tenderness is noted on palpation or with deep breathing. HEART EXAMINATION: Regular rate and rhythm. S1, S2 heard. Systolic murmur noted. ABDOMEN: Soft, nontender. Positive bowel sounds. EXTREMITIES: 2+ peripheral pulses, no lower extremity edema and no calf tenderness. NEUROLOGIC EXAMINATION: Patient is awake, alert and oriented x3. ASSESSMENT Chest pain, atypical, non-specific EKG changes Elevated troponin, not indicative of acute coronary syndrome at this time, patient with elevated troponin in 2019. Cardiomyopathy, unclear if ischemic vs nonischemic at this time Hypertension Abdominal pain Chronic nicotine dependence Polysubstance abuse Transaminitis Scrotal abscess Right Hydrocele seen on CT History of cholecystitis s/p lap cholecystectomy in 03/2021 PLAN We will continue to treat the patient medically at htis time Continue aspirin, statin Increase carvedilol 12.5mg BID Decrease clonidine to 0.1mg TID Continue Lisinopril 5mg BID and spironolactone 25mg daily Will monitor patient's blood pressure and make adjustments accordingly Discontinue heparin drip Smoking and substance abuse cessation discussed and highly recommended. Recommend follow up in the outpatient office for further evaluation of next steps in regards to patient's care. Nurse Practitioner note has been reviewed, I agree with a documented findings and plan of care. Patient was seen and examined. Objective - Vital Signs Vital signs: Vital Signs Temp 97.8 F 07/28/21 04:35 Pulse 85 07/28/21 04:35 Resp 18 07/28/21 04:35 BP 135/86 07/28/21 04:35 Pulse Ox 99 07/28/21 04:35 Intake & Output 07/27/21 07/28/21 07/28/21 18:59 06:59 18:59 Intake Total 324.658 118.512 236 Output Total 1000 525 Balance -675.342 -406.488 236 Weight 76.8 kg Intake: Intake, IV Titration 144.658 118.512 Amount Heparin Sod,Pork in 0.45% 144.658 118.512 NaCl 25,000 unit In 0.45 % NaCl 1 250ml.bag @ 12 UNITS/KG/HR 9.58 mls/hr IV .Q24H [facility] Rx#: [id number] Oral 180 236 Output: Urine 1000 525 Other: Voiding Method Indwelling Catheter Indwelling Catheter # Voids 1 - Labs CBC & Chem 7: 07/26/21 19:37 07/26/21 19:37 Labs: Abnormal Lab Results - Last 24 Hours (Table) 07/27/21 Range/Units 02:44 HDL Cholesterol 37.0 L (40.0-60.0) mg/dL Microbiology - Last 24 Hours (Table) 07/26/21 19:37 Gram Stain - Preliminary Other - Other Wound Culture - Preliminary Gram Neg Bacilli Gram Neg Bacilli#2 07/26/21 19:37 Blood Culture - Preliminary Blood No Growth after 24 hours 07/26/21 19:37 Blood Culture - Preliminary Blood No Growth after 24 hours
[2021-07-28] MEDS: cloNIDine HCL 0.2 MG TAB PO SCH (09:51)
[2021-07-28] MEDS ORDERED: VANCOMYCIN 1,500 MG in SODIUM CHLORIDE 0.9% 250 ML IVPB SCH (12:00)
--- NOTE | 2021-07-28 12:13 | P.PN ---
Subjective Progress Note Date: 07/28/21 Patient is doing well today. He denies any complaints. Objective - Vital Signs Vital signs: Vital Signs Temp 98.2 F 07/28/21 08:00 Pulse 82 07/28/21 08:00 Resp 18 07/28/21 08:00 BP 182/121 07/28/21 08:00 Pulse Ox 98 07/28/21 08:00 Intake & Output 07/27/21 07/28/21 07/28/21 18:59 06:59 18:59 Intake Total 324.658 118.512 236 Output Total 1000 525 Balance -675.342 -406.488 236 Weight 76.8 kg Intake: Intake, IV Titration 144.658 118.512 Amount Heparin Sod,Pork in 0.45% 144.658 118.512 NaCl 25,000 unit In 0.45 % NaCl 1 250ml.bag @ 12 UNITS/KG/HR 9.58 mls/hr IV .Q24H GIDEON Rx#: [id number] Oral 180 236 Output: Urine 1000 525 Other: Voiding Method Indwelling Catheter Indwelling Catheter # Voids 1 - Exam General: The patient is awake and alert, in no distress Eye: there is normal conjunctiva bilaterally. Neck: The neck is supple, there is no JVD. Cardiovascular: Normal S1-S2, no S3-S4, no murmurs. Respiratory: Lungs clear to auscultation bilaterally Gastrointestinal: Abdomen is soft, nontender Musculoskeletal: There is no pedal edema. Neurological:. Speech is normal. Skin: Skin is warm and dry - Labs CBC & Chem 7: 07/26/21 19:37 07/26/21 19:37 Labs: Microbiology - Last 24 Hours (Table) 07/26/21 19:37 Gram Stain - Preliminary Other - Other Wound Culture - Preliminary Gram Neg Bacilli Gram Neg Bacilli#2 07/26/21 19:37 Blood Culture - Preliminary Blood No Growth after 24 hours 07/26/21 19:37 Blood Culture - Preliminary Blood No Growth after 24 hours Assessment and Plan Assessment: This is a 36-year-old male with past medical history significant for polysubstance abuse who presented to the emergency room with scrotal swelling and pain. Patient was evaluated in the ER and admitted to the hospital for further management of his medical problems noted below. sepsis scrotal pain and swelling scrotal abscess, cellulitis, fornier gangrene ruled out Seen and evaluated by urology, patient declined any surgical intervention or drainage. He is aware of the risks. UA unremarkable Continue broad spectrum antibiotic management by infectious disease CT imaging did not show extension of the infectious process beyond the scrotal area. Blood cultures negative to date Patient received aggressive IVF hydration with normal saline Cardiomyopathy with systolic dysfunction and estimated EF of 35% Chest discomfort with elevated troponin on presentation NSTEMI ruled out by cardiology Patient treated with IV heparin and aspirin Probably drug-induced and hypertensive cardiomyopathy, need to rule out ischemic cardiomyopathy Seen and evaluated by cardiology, medical regimen optimized urinary retention , s/p jones cath monitor urine output monitor renal function hypertension , poorly controlled , medical non compliance Blood pressure better controlled with current regimen elevated d dimer CTA no acute PE COVID negative MethAmphetamine abuse Counseled extensively to quit full code anticipated discharge pending clincial course
[2021-07-28 12:28] LABS: African American GFR (CKD) >90 (>60 ml/min/1.73 sqM); Anion Gap 7 mmol/L; Blood Urea Nitrogen 12 mg/dL (9-20); Calcium 7.6 mg/dL (8.4-10.2); Carbon Dioxide 17 mmol/L (22-30); Chloride 109 mmol/L (98-107); Glucose 135 mg/dL (74-99); Non-African American GFR(CKD) >90 (>60 ml/min/1.73 sqM); Sodium 133 mmol/L (137-145)
[2021-07-28 12:30] LABS: Magnesium 1.6 mg/dL (1.6-2.3); Potassium 4.6 mmol/L (3.5-5.1)
--- NOTE | 2021-07-28 14:10 | PN ---
PROGRESS NOTE DATE OF SERVICE: 07/28/2021 REASON FOR FOLLOW UP: Scrotal abscess cellulitis. INTERVAL HISTORY: Patient is currently afebrile. The patient is breathing comfortably slightly lethargic today and did not provide any history. No vomiting, diarrhea or any other changes reported by nursing staff. PHYSICAL EXAMINATION: Blood pressure 149/97, pulse of 90, temperature 98.2. He is 99% on room air. General description is a middle-aged male lying in bed in no distress. Respiratory system: Unlabored breathing, clear to auscultation anteriorly. Heart S1, S2 regular rate and rhythm. Abdomen soft. Scrotal with some swelling. Redness has decreased. No drainage was noticed. LABS: Creatinine 0.91. Local culture now showing gram negative bacilli. DIAGNOSTIC IMPRESSION AND PLAN: Patient with scrotal abscess, cellulitis. Local culture now showing gram-negative. Antibiotic will be adjusted to Zosyn. Discontinue the Unasyn and the vancomycin adjusting it further based on the culture report. Continue supportive care. MMODL / IJN: [id number] /
[2021-07-28] MEDS: PIPERACILLIN-TAZOBACTAM 3.375 GM in SODIUM CHLORIDE 0.9% 100 ML IVPB SCH ×2 (16:30→23:19)
[2021-07-28] MEDS: cloNIDine HCL 0.1 MG TAB PO SCH ×2 (16:30→20:38)
[2021-07-28] MEDS: carvediloL 12.5 MG TAB PO SCH (16:30)
[2021-07-28] MEDS: NICOTINE 21MG/24HR PATCH TRANSDERM SCH (16:31)
[2021-07-29] MEDS ORDERED: VANCOMYCIN 1,500 MG in SODIUM CHLORIDE 0.9% 250 ML IVPB SCH ×2
[2021-07-29 06:20] LABS: Hepatitis A Antibody IgM Non-Reactive (Non-Reactive); Hepatitis B Core IgM Non-Reactive (Non-Reactive); Hepatitis C IgG Antibody Reactive (Non-Reactive)
[2021-07-29] MEDS: carvediloL 12.5 MG TAB PO SCH ×2 (06:45→17:42)
--- NOTE | 2021-07-29 08:26 | P.PN ---
Subjective Progress Note Date: 07/29/21 The patient continues to progress from a scrotal infection. There is no obvious abscess formation. There is still some induration in the scrotum as expected. He is slightly tender. He is refusing any more aggressive evaluation and/or treatment. His vital signs are afebrile. I'll continue with antibiotics. This could be followed as an outpatient. Objective - Vital Signs Vital signs: Vital Signs Temp 97.7 F 07/29/21 04:00 Pulse 85 07/29/21 04:00 Resp 18 07/29/21 04:00 BP 156/94 07/29/21 04:00 Pulse Ox 97 07/29/21 04:00 Intake & Output 07/28/21 07/29/21 07/29/21 18:59 06:59 18:59 Intake Total 708 Output Total 800 1340 Balance -92 -1340 Weight 80.5 kg Intake: Oral 708 Output: Urine 800 1340 Other: Voiding Method Urinal # Voids 1 1 - Labs CBC & Chem 7: 07/26/21 19:37 07/28/21 11:29 Labs: Abnormal Lab Results - Last 24 Hours (Table) 07/27/21 07/28/21 Range/Units 10:35 11:29 Sodium 133 L (137-145) mmol/L Chloride 109 H (98-107) mmol/L Carbon Dioxide 17 L (22-30) mmol/L Glucose 135 H (74-99) mg/dL Calcium 7.6 L (8.4-10.2) mg/dL Hep C IgG Ab Reactive A (Non-Reactive) Microbiology - Last 24 Hours (Table) 07/26/21 19:37 Blood Culture - Preliminary Blood No Growth after 48 hours 07/26/21 19:37 Blood Culture - Preliminary Blood No Growth after 48 hours 07/26/21 19:37 Gram Stain - Preliminary Other - Other Wound Culture - Preliminary Escherichia coli Klebsiella oxytoca
[2021-07-29] MEDS: cloNIDine HCL 0.1 MG TAB PO SCH (08:35)
[2021-07-29] MEDS: NICOTINE 21MG/24HR PATCH TRANSDERM SCH (08:35)
[2021-07-29] MEDS: SPIRONOLACTONE 25 MG TAB PO SCH (08:35)
[2021-07-29] MEDS: ATORVASTATIN 40 MG TAB PO SCH (08:35)
[2021-07-29] MEDS: ASPIRIN 81 MG PO SCH (08:35)
[2021-07-29] MEDS: lisinopriL 5 MG TAB PO SCH ×2 (08:35→20:24)
[2021-07-29] MEDS: PIPERACILLIN-TAZOBACTAM 3.375 GM in SODIUM CHLORIDE 0.9% 100 ML IVPB SCH ×2 (08:35→17:43)
[2021-07-29] MEDS ORDERED: VANCOMYCIN TROUGH DUE 1 EACH MISC MISCELLANE ONE (11:00)
[2021-07-29 12:25] LABS: Basophils % (A) 0 %; Eosinophils # (A) 0.3 k/uL (0-0.7); Eosinophils % (A) 4 %; HGB 12.6 gm/dL (13.0-17.5); Hypochromasia Slight; Lymphocytes # (A) 0.8 k/uL (1.0-4.8); Lymphocytes % (A) 9 %; MCHC 33.1 g/dL (31.0-37.0); MCV 96.8 fL (80.0-100.0); Mean Platelet Volume 7.6; Monocytes # (A) 0.4 k/uL (0-1.0); Monocytes % (A) 5 %; Neutrophils # (A) 6.9 k/uL (1.3-7.7); Neutrophils % (A) 81 %; Platelet Count 218 k/uL (150-450); RBC 3.93 m/uL (4.30-5.90); RDW 14.4 % (11.5-15.5); WBC 8.5 k/uL (3.8-10.6)
[2021-07-29 12:49] LABS: African American GFR (CKD) >90 (>60 ml/min/1.73 sqM); Anion Gap 7 mmol/L; Blood Urea Nitrogen 17 mg/dL (9-20); Calcium 8.2 mg/dL (8.4-10.2); Carbon Dioxide 21 mmol/L (22-30); Chloride 107 mmol/L (98-107); Glucose 114 mg/dL (74-99); Magnesium 1.8 mg/dL (1.6-2.3); Non-African American GFR(CKD) >90 (>60 ml/min/1.73 sqM); Potassium 4.6 mmol/L (3.5-5.1); Sodium 135 mmol/L (137-145)
--- NOTE | 2021-07-29 13:56 | P.PN ---
Subjective Progress Note Date: 07/29/21 No acute events overnight. Blood pressure not well controlled. Patient is complaining that he is not sleeping well in the hospital. Objective - Vital Signs Vital signs: Vital Signs Temp 98.2 F 07/29/21 08:00 Pulse 91 07/29/21 12:00 Resp 18 07/29/21 12:00 BP 146/90 07/29/21 12:00 Pulse Ox 99 07/29/21 12:00 Intake & Output 07/28/21 07/29/21 07/29/21 18:59 06:59 18:59 Intake Total 708 125 Output Total 800 1340 350 Balance -92 -1340 -225 Weight 80.5 kg Intake: Oral 708 125 Output: Urine 800 1340 350 Other: Voiding Method Urinal Urinal # Voids 1 1 - Exam General: The patient is awake and alert, in no distress Eye: there is normal conjunctiva bilaterally. Neck: The neck is supple, there is no JVD. Cardiovascular: Normal S1-S2, no S3-S4, no murmurs. Respiratory: Lungs clear to auscultation bilaterally Gastrointestinal: Abdomen is soft, nontender Musculoskeletal: There is no pedal edema. Neurological:. Speech is normal. Skin: Skin is warm and dry - Labs CBC & Chem 7: 07/29/21 12:09 07/29/21 12:09 Labs: Abnormal Lab Results - Last 24 Hours (Table) 07/27/21 07/29/21 07/29/21 Range/Units 10:35 12:09 12:09 RBC 3.93 L (4.30-5.90) m/uL Hgb 12.6 L (13.0-17.5) gm/dL Hct 38.0 L (39.0-53.0) % Lymphocytes # 0.8 L (1.0-4.8) k/uL Sodium 135 L (137-145) mmol/L Carbon Dioxide 21 L (22-30) mmol/L Glucose 114 H (74-99) mg/dL Calcium 8.2 L (8.4-10.2) mg/dL Hep C IgG Ab Reactive A (Non-Reactive) Microbiology - Last 24 Hours (Table) 07/26/21 19:37 Blood Culture - Preliminary Blood No Growth after 48 hours 07/26/21 19:37 Blood Culture - Preliminary Blood No Growth after 48 hours 07/26/21 19:37 Gram Stain - Preliminary Other - Other Wound Culture - Preliminary Escherichia coli Klebsiella oxytoca Assessment and Plan Assessment: This is a 36-year-old male with past medical history significant for polysubstance abuse who presented to the emergency room with scrotal swelling and pain. Patient was evaluated in the ER and admitted to the hospital for further management of his medical problems noted below. sepsis scrotal pain and swelling scrotal abscess, cellulitis, fornier gangrene ruled out Seen and evaluated by urology, patient declined any surgical intervention or drainage. He is aware of the risks. UA unremarkable Continue broad spectrum antibiotic management by infectious disease CT imaging did not show extension of the infectious process beyond the scrotal area. Blood cultures negative to date Patient received aggressive IVF hydration with normal saline Cardiomyopathy with systolic dysfunction and estimated EF of 35% Chest discomfort with elevated troponin on presentation NSTEMI ruled out by cardiology Patient treated with IV heparin and aspirin Probably drug-induced and hypertensive cardiomyopathy, need to rule out ischemic cardiomyopathy Seen and evaluated by cardiology, medical regimen optimized urinary retention , s/p jones cath monitor urine output monitor renal function hypertension , poorly controlled , medical non compliance Blood pressure better controlled with current regimen elevated d dimer CTA no acute PE COVID negative MethAmphetamine abuse Counseled extensively to quit full code anticipated discharge pending clincial course
--- NOTE | 2021-07-29 14:03 | P.PN ---
Subjective This is a pleasant 36-year-old male past medical history significant for hypertension, chronic nicotine dependence, polysubstance abuse, acute cholec ystitis s/p Lap terese in 03/[address] Haynes. He does not follow with a proposal consultant. We have been asked to see in consultation for chest pain. Patient was found to have elevated troponin 1.0, 0.8, 0.99, with non-specific EKG changes. Patient was also found to have scrotal abscess. Urology evaluated the patient, attempted I&D at bedside but patient did not tolerate at bedside. Patient is seen and examined at bedside this morning, no acute distress. He seems frustrated with his current situation being homeless and states he will not be able to follow up with doctors after his hospital stay. Patient denies any chest pain, shortness of breath, lightheadedness, dizziness, palpitations. Telemetry reviewed patient in sinus mechanism heart rate 80s. Echocardiogram revealed EF 3035 percent, moderate concentric left ventricular hypertrophy, anterior septal hypokinesis, septal hypokinesis, LA severely dilated, mild mitral regurgitation, mild thickness regurgitation, small pleural effusion, small generalized pericardial effusion. Patient currently maintained on aspirin 81mg daily, atorvastatin 40 mg daily, carvedilol 12.5mg twice a day, lisinopril 5 mg twice a day, spironolactone 25 mg daily, clonidine 0.1mg TID PHYSICAL EXAMINATION Blood pressure 165/96 heart rate 80, afebrile, maintaining oxygen saturations 97% on room air. CONSTITUTIONAL: No apparent distress. HEENT: Neck Supple No JVD. CHEST EXAMINATION: Lungs are clear to auscultation. No chest wall tenderness is noted on palpation or with deep breathing. HEART EXAMINATION: Regular rate and rhythm. S1, S2 heard. Systolic murmur noted. ABDOMEN: Soft, nontender. Positive bowel sounds. EXTREMITIES: 2+ peripheral pulses, no lower extremity edema and no calf tenderness. NEUROLOGIC EXAMINATION: Patient is awake, alert and oriented x3. ASSESSMENT Chest pain, atypical, non-specific EKG changes Elevated troponin, not indicative of acute coronary syndrome at this time, patient with elevated troponin in 2019. Cardiomyopathy, unclear if ischemic vs nonischemic at this time Hypertension Abdominal pain Chronic nicotine dependence Polysubstance abuse Transaminitis Scrotal abscess Right Hydrocele seen on CT History of cholecystitis s/p lap cholecystectomy in 03/2021 PLAN We will continue to treat the patient medically at this time Continue aspirin, statin Increase carvedilol 25mg BID Decrease clonidine to 0.1mg daily Continue Lisinopril 5mg BID and spironolactone 25mg daily Will monitor patient's blood pressure and make adjustments accordingly Smoking and substance abuse cessation discussed and highly recommended. Recommend follow up in the outpatient office for further evaluation of next st eps in regards to patient's care. Nurse Practitioner note has been reviewed, I agree with a documented findings and plan of care. Patient was seen and examined. Objective - Vital Signs Vital signs: Vital Signs Temp 98.2 F 07/29/21 08:00 Pulse 80 07/29/21 08:00 Resp 18 07/29/21 08:00 BP 165/96 07/29/21 08:00 Pulse Ox 99 07/29/21 08:00 Intake & Output 07/28/21 07/29/21 07/29/21 18:59 06:59 18:59 Intake Total 708 125 Output Total 800 1340 350 Balance -92 -1340 -225 Weight 80.5 kg Intake: Oral 708 125 Output: Urine 800 1340 350 Other: Voiding Method Urinal Urinal # Voids 1 1 - Labs CBC & Chem 7: 07/29/21 12:09 07/29/21 12:09 Labs: Abnormal Lab Results - Last 24 Hours (Table) 07/27/21 07/28/21 Range/Units 10:35 11:29 Sodium 133 L (137-145) mmol/L Chloride 109 H (98-107) mmol/L Carbon Dioxide 17 L (22-30) mmol/L Glucose 135 H (74-99) mg/dL Calcium 7.6 L (8.4-10.2) mg/dL Hep C IgG Ab Reactive A (Non-Reactive) Microbiology - Last 24 Hours (Table) 07/26/21 19:37 Blood Culture - Preliminary Blood No Growth after 48 hours 07/26/21 19:37 Blood Culture - Preliminary Blood No Growth after 48 hours 07/26/21 19:37 Gram Stain - Preliminary Other - Other Wound Culture - Preliminary Escherichia coli Klebsiella oxytoca
--- NOTE | 2021-07-29 15:36 | PN ---
PROGRESS NOTE DATE OF SERVICE: 07/29/2021 REASON FOR FOLLOWUP: Scrotal abscess and cellulitis. INTERVAL HISTORY: The patient is afebrile. He is breathing comfortably. Overall pain and discomfort to the scrotal area has decreased. No chest pain, shortness of breath or cough. No abdominal pain or diarrhea. PHYSICAL EXAMINATION: Blood pressure 146/90 with a pulse of 91, temperature 98.2. He is 99% on 2 L nasal cannula. GENERAL DESCRIPTION: General description is a middle-aged male lying in bed in no distress. RESPIRATORY SYSTEM: Unlabored breathing. Clear to auscultation anteriorly. HEART: S1, S2. Regular rate and rhythm. ABDOMEN: Soft. No tenderness. Scrotal area swelling and redness has decreased. No drainage. LABS: Hemoglobin is 12.3, white count 8.5, BUN of 17, creatinine 1.05. Culture with E coli and Klebsiella. DIAGNOSTIC IMPRESSION AND PLAN: Patient with scrotal abscess with spontaneous drainage and cellulitis. Culture with Klebsiella and E coli. Patient is covered with Zosyn. That can be transitioned to oral Cipro on discharge and close outpatient followup. MMODL / IJN: [id number] /
[2021-07-29 19:32] VITALS: RESP 18
[2021-07-29] MEDS ORDERED: cloNIDine HCL 0.1 MG TAB PO SCH (21:00)
[2021-07-30] MEDS ORDERED: VANCOMYCIN IV PER PHARMACY 1 EACH MISC MISCELLANE PRN (00:08)
[2021-07-30] MEDS ORDERED: VANCOMYCIN 1,500 MG in SODIUM CHLORIDE 0.9% 250 ML IVPB ONE (00:15)
[2021-07-30] MEDS: PIPERACILLIN-TAZOBACTAM 3.375 GM in SODIUM CHLORIDE 0.9% 100 ML IVPB SCH (00:42)
[2021-07-30 04:41] VITALS: BP 167/119; PULSE 86; TEMP 98.1
[2021-07-30] MEDS: carvediloL 12.5 MG TAB PO SCH (06:55)
--- NOTE | 2021-07-30 10:46 | P.DS ---
Providers Date of admission: 07/26/21 23:07 Expected date of discharge: 07/30/21 Attending physician: Laurie Barahona MD Consults: 07/26/21 23:07 Consult Physician Urgent Consulting Provider: Jose Grant Consult Reason/Comments: Elevated troponin. Do you want consulting provider notified?: Already Contacted 07/27/21 08:18 Consult Physician Routine Consulting Provider: Tyrone Gilmore Consult Reason/Comments: scrotal abscess Do you want consulting provider notified?: Yes Consult Physician Routine Consulting Provider: Bandar Louis Consult Reason/Comments: scrotal abscess Do you want consulting provider notified?: Yes Primary care physician: Stated None Hospital Course: Patient left the hospital AGAINST MEDICAL ADVICE prior to my evaluation this morning. For details about this hospital stay please refer to my progress note dated 07/29/2021 Patient Condition at Discharge: Poor Plan - Discharge Summary Discharge Rx Participant: No New Discharge Prescriptions: No Action Unable To Assess [Unable to Assess] Discharge Medication List Unable To Assess [Unable to Assess] 07/27/21 [History] Follow up Appointment(s)/Referral(s): None,Stated [Primary Care Provider] - 1-2 days Discharge Disposition: Left Against Medical Advice
[2021-07-30] MEDS ORDERED: VANCOMYCIN 1,500 MG in SODIUM CHLORIDE 0.9% 250 ML IVPB SCH (13:00)
[2021-07-31] MEDS ORDERED: VANCOMYCIN TROUGH DUE 1 EACH MISC MISCELLANE ONE (12:00)
== END 2021-07-30 09:05 | disposition left against medical advice (07) | DRG 872 ==
LOC: EC 18:46 → 3SCARD 23:07
PROVIDERS: ADMIT Internal Medicine; ATTEND Internal Medicine
DX: A41.9 Sepsis, unspecified organism (principal); I43 Cardiomyopathy in diseases classified elsewhere; I31.3 Pericardial effusion (noninflammatory); J81.1 Chronic pulmonary edema; B96.1 Klebsiella pneumoniae [K. pneumoniae] as the cause of diseases classified elsewhere; N49.2 Inflammatory disorders of scrotum; B96.20 Unspecified Escherichia coli [E. coli] as the cause of diseases classified elsewhere; F15.10 Other stimulant abuse, uncomplicated; Z71.6 Tobacco abuse counseling; F17.210 Nicotine dependence, cigarettes, uncomplicated; F32.9 Major depressive disorder, single episode, unspecified; F41.9 Anxiety disorder, unspecified; F90.9 Attention-deficit hyperactivity disorder, unspecified type; I11.9 Hypertensive heart disease without heart failure; I16.0 Hypertensive urgency; R07.89 Other chest pain; N43.3 Hydrocele, unspecified; F19.10 Other psychoactive substance abuse, uncomplicated; R79.1 Abnormal coagulation profile; R33.9 Retention of urine, unspecified; Z20.822 Contact with and (suspected) exposure to COVID-19; Z59.0 Homelessness; Z79.82 Long term (current) use of aspirin; Z79.899 Other long term (current) drug therapy; Z80.0 Family history of malignant neoplasm of digestive organs; Z90.49 Acquired absence of other specified parts of digestive tract; Z91.19 Patient's noncompliance with other medical treatment and regimen; Z80.1 Family history of malignant neoplasm of trachea, bronchus and lung; Z80.49 Family history of malignant neoplasm of other genital organs
CPT/HCPCS: 36415; 71046; 71275; 74177; 76870; 80048; 80053; 80061; 80074; 80202; 80306; 81001; 82550; 83605; 83735; 83880; 84484; 85025; 85379; 85610; 85652; 85730; 86140; 87040; 87070; 87077; 87186; 87205; 87635; 93005; 93306; 93975; 96365; 96367; 96368; 96375; 99291

== ENCOUNTER 2021-10-17 04:51 | Observation (INO) | payer OTHER ==
[2021-10-17 05:04] VITALS: TEMP 97.6
[2021-10-17] MEDS ORDERED: SODIUM CHLORIDE 0.9% 1,000 ML IV STA (06:13)
[2021-10-17] MEDS ORDERED: LABETALOL 5 MG/ML VIAL MDV IVP STA (06:14)
[2021-10-17 07:05] VITALS: PULSE 95; RESP 16
[2021-10-17 07:14] LABS: Anisocytosis Slight; Basophils % (A) 0 %; Eosinophils # (A) 0.2 k/uL (0-0.7); Eosinophils % (A) 3 %; HGB 12.7 gm/dL (13.0-17.5); Lymphocytes # (A) 1.1 k/uL (1.0-4.8); Lymphocytes % (A) 12 %; MCH 30.1 pg (25.0-35.0); MCHC 34.2 g/dL (31.0-37.0); MCV 87.9 fL (80.0-100.0); Mean Platelet Volume 7.6; Monocytes # (A) 0.7 k/uL (0-1.0); Monocytes % (A) 7 %; Neutrophils # (A) 7.1 k/uL (1.3-7.7); Neutrophils % (A) 76 %; Platelet Count 245 k/uL (150-450); RBC 4.21 m/uL (4.30-5.90); RDW 16.7 % (11.5-15.5); WBC 9.3 k/uL (3.8-10.6)
--- NOTE | 2021-10-17 07:31 | XR ---
EXAMINATION TYPE: XR chest 2V DATE OF EXAM: 10/17/2021 COMPARISON: 07/26/2021 HISTORY: Chest pain TECHNIQUE: Frontal and lateral views of the chest are obtained. FINDINGS: There is no focal air space opacity. No evidence for pneumothorax. No pleural effusion. The cardiac silhouette size is within normal limits. The osseous structures are grossly intact. IMPRESSION: 1. No acute cardiopulmonary process.
[2021-10-17 08:00] LABS: Albumin 3.5 g/dL (3.5-5.0); Calcium 8.5 mg/dL (8.4-10.2); Magnesium 1.8 mg/dL (1.6-2.3); Potassium 3.6 mmol/L (3.5-5.1); Total Bilirubin 0.9 mg/dL (0.2-1.3); Total Protein 7.6 g/dL (6.3-8.2)
--- NOTE | 2021-10-17 08:03 | ED ---
General Adult HPI - General Chief complaint: Neck Pain/Injury Stated complaint: LUMP ON NECK Time Seen by Provider: 10/17/21 06:13 Source: patient, RN notes reviewed Mode of arrival: ambulatory Limitations: no limitations - History of Present Illness Initial comments: This a 36-year-old male presents emergency Department with multiple complaints. Patient states been sick for over a week or 2. Patient states that cough congestion. Patient is a daily smoker. Patient states that he has some left- sided neck discomfort feels like there is a bump on the muscle. Patient complains of left-sided ear pain, intermittent headaches. Patient does complain of rib, chest discomfort, hurts worse with cough. No palpitations no nausea vomiting diarrhea constipation patient states he's had no COVID-19 exposures. Patient's will feel blood pressure medication but states has not taken them. - Related Data Home Medications Medication Instructions Recorded Confirmed Unable To Assess [Unable to Assess] 07/27/21 10/17/21 Allergies Allergy/AdvReac Type Severity Reaction Status Date / Time No Known Allergies Allergy Verified 10/17/21 08:29 Review of Systems ROS Statement: Those systems with pertinent positive or pertinent negative responses have been documented in the HPI. ROS Other: All systems not noted in ROS Statement are negative. Past Medical History Past Medical History: Hypertension Additional Past Medical History / Comment(s): hx migraines History of Any Multi-Drug Resistant Organisms: MRSA Date of last positivie culture/infection: 07/26/21 MDRO Source:: Right Testicle Past Surgical History: No Surgical Hx Reported Additional Past Surgical History / Comment(s): fx Tibia and fibula, I&D testicle, Past Anesthesia/Blood Transfusion Reactions: No Reported Reaction Past Psychological History: ADD/ADHD, Anxiety, Depression Smoking Status: Current every day smoker Past Alcohol Use History: None Reported Past Drug Use History: None Reported, Cocaine, Marijuana - Past Family History Mother Family Medical History: Cancer Additional Family Medical History / Comment(s): cervical cancer Father Family Medical History: Cancer Additional Family Medical History / Comment(s): Father in 1997 from lung and liver cancer General Exam Limitations: no limitations General appearance: alert, in no apparent distress Head exam: Present: atraumatic, normocephalic, normal inspection Eye exam: Present: normal appearance, PERRL, EOMI. Absent: scleral icterus, conjunctival injection, periorbital swelling ENT exam: Present: normal exam, normal oropharynx, mucous membranes moist Neck exam: Present: normal inspection, full ROM. Absent: tenderness, meningismus, lymphadenopathy Respiratory exam: Present: wheezes. Absent: normal lung sounds bilaterally, respiratory distress, rales, rhonchi, stridor Cardiovascular Exam: Present: normal rhythm, tachycardia, normal heart sounds. Absent: systolic murmur, diastolic murmur, rubs, gallop, clicks GI/Abdominal exam: Present: soft, normal bowel sounds. Absent: distended, tenderness, guarding, rebound, rigid Course Vital Signs 10/17/21 10/17/21 10/17/21 04:55 07:04 08:44 Temperature 97.6 F Pulse Rate 102 H 95 Respiratory 18 16 Rate Blood Pressure 197/149 188/114 143/85 O2 Sat by Pulse 99 97 Oximetry Medical Decision Making - Medical Decision Making 36-year-old presented for multiple complaints. Patient found to have hypertens ion, URI symptoms. COVID-19 is negative patient's troponin is elevated at this time. Patient's blood pressure is improved after medications given. Patient be admitted for observation for repeat troponin as it is elevated. - Lab Data Result diagrams: 10/17/21 06:58 10/17/21 06:58 Lab Results 10/17/21 10/17/21 10/17/21 Range/Units 06:18 06:58 06:58 WBC 9.3 (3.8-10.6) k/uL RBC 4.21 L (4.30-5.90) m/uL Hgb 12.7 L (13.0-17.5) gm/dL Hct 37.0 L (39.0-53.0) % MCV 87.9 (80.0-100.0) fL MCH 30.1 (25.0-35.0) pg MCHC 34.2 (31.0-37.0) g/dL RDW 16.7 H (11.5-15.5) % Plt Count 245 (150-450) k/uL MPV 7.6 Neutrophils % 76 % Lymphocytes % 12 % Monocytes % 7 % Eosinophils % 3 % Basophils % 0 % Neutrophils # 7.1 (1.3-7.7) k/uL Lymphocytes # 1.1 (1.0-4.8) k/uL Monocytes # 0.7 (0-1.0) k/uL Eosinophils # 0.2 (0-0.7) k/uL Basophils # 0.0 (0-0.2) k/uL Anisocytosis Slight Sodium 138 (137-145) mmol/L Potassium 3.6 (3.5-5.1) mmol/L Chloride 106 (98-107) mmol/L Carbon Dioxide 22 (22-30) mmol/L Anion Gap 10 mmol/L BUN 15 (9-20) mg/dL Creatinine 1.21 (0.66-1.25) mg/dL Est GFR (CKD-EPI)AfAm 89 (>60 ml/min/1.73 sqM) Est GFR (CKD-EPI)NonAf 77 (>60 ml/min/1.73 sqM) Glucose 92 (74-99) mg/dL Calcium 8.5 (8.4-10.2) mg/dL Magnesium 1.8 (1.6-2.3) mg/dL Total Bilirubin 0.9 (0.2-1.3) mg/dL AST 99 H (17-59) U/L ALT 63 H (4-49) U/L Alkaline Phosphatase 105 (38-126) U/L Troponin I (0.000-0.034) ng/mL Total Protein 7.6 (6.3-8.2) g/dL Albumin 3.5 (3.5-5.0) g/dL Coronavirus (PCR) Not Detected (Not Detectd) 10/17/21 Range/Units 06:58 WBC (3.8-10.6) k/uL RBC (4.30-5.90) m/uL Hgb (13.0-17.5) gm/dL Hct (39.0-53.0) % MCV (80.0-100.0) fL MCH (25.0-35.0) pg MCHC (31.0-37.0) g/dL RDW (11.5-15.5) % Plt Count (150-450) k/uL MPV Neutrophils % % Lymphocytes % % Monocytes % % Eosinophils % % Basophils % % Neutrophils # (1.3-7.7) k/uL Lymphocytes # (1.0-4.8) k/uL Monocytes # (0-1.0) k/uL Eosinophils # (0-0.7) k/uL Basophils # (0-0.2) k/uL Anisocytosis Sodium (137-145) mmol/L Potassium (3.5-5.1) mmol/L Chloride (98-107) mmol/L Carbon Dioxide (22-30) mmol/L Anion Gap mmol/L BUN (9-20) mg/dL Creatinine (0.66-1.25) mg/dL Est GFR (CKD-EPI)AfAm (>60 ml/min/1.73 sqM) Est GFR (CKD-EPI)NonAf (>60 ml/min/1.73 sqM) Glucose (74-99) mg/dL Calcium (8.4-10.2) mg/dL Magnesium (1.6-2.3) mg/dL Total Bilirubin (0.2-1.3) mg/dL AST (17-59) U/L ALT (4-49) U/L Alkaline Phosphatase (38-126) U/L Troponin I 0.045 H* (0.000-0.034) ng/mL Total Protein (6.3-8.2) g/dL Albumin (3.5-5.0) g/dL Coronavirus (PCR) (Not Detectd) Disposition Clinical Impression: Hypertension, Upper respiratory infection, Elevated troponin Disposition: ADMITTED IP TO THIS HOSP Condition: Fair Referrals: None,Stated [Primary Care Provider] - 1-2 days
[2021-10-17 08:44] VITALS: BP 143/85
[2021-10-17] MEDS ORDERED: ASPIRIN 81 MG PO STA (08:56)
[2021-10-17] MEDS ORDERED: NITROGLYCERIN SL TABS 0.4 MG TAB SUBLINGUAL PRN (08:56)
[2021-10-18] MEDS ORDERED: ASPIRIN 325 MG TAB PO SCH (09:00)
== END 2021-10-17 10:08 | disposition left against medical advice (07) ==
LOC: EC 04:51 → 3SCARD 09:30
PROVIDERS: ADMIT Internal Medicine; ATTEND Internal Medicine
DX: I10 Essential (primary) hypertension (principal); J06.9 Acute upper respiratory infection, unspecified; Z53.29 Procedure and treatment not carried out because of patient's decision for other reasons; R79.89 Other specified abnormal findings of blood chemistry; H92.02 Otalgia, left ear; G43.909 Migraine, unspecified, not intractable, without status migrainosus; F32.A Depression, unspecified; F41.9 Anxiety disorder, unspecified; F90.9 Attention-deficit hyperactivity disorder, unspecified type; F17.200 Nicotine dependence, unspecified, uncomplicated; Z20.822 Contact with and (suspected) exposure to COVID-19; Z86.14 Personal history of Methicillin resistant Staphylococcus aureus infection; Z98.890 Other specified postprocedural states; Z80.49 Family history of malignant neoplasm of other genital organs; Z80.1 Family history of malignant neoplasm of trachea, bronchus and lung; Z80.0 Family history of malignant neoplasm of digestive organs
CPT/HCPCS: 96374; 99284; 36415; 93005; 80053; 83735; 84484; 85025; 87635; 71046; G0378

== ENCOUNTER 2021-11-02 18:39 | Emergency (ER) | payer OTHER ==
[2021-11-02] MEDS ORDERED: hydrALAZINE HCL 20 MG/ML 1 ML VIAL IVP STA (19:32)
[2021-11-02] MEDS ORDERED: SODIUM CHLORIDE 0.9% 1,000 ML IV ONE (19:34)
--- NOTE | 2021-11-02 20:04 | ED ---
General Adult HPI - General Chief complaint: Shortness of Breath Stated complaint: RADHA Time Seen by Provider: 11/02/21 18:45 Source: patient, RN notes reviewed, old records reviewed Mode of arrival: ambulatory Limitations: no limitations - History of Present Illness Initial comments: This is a 36-year-old male who presents emergency Department stating he's had a cough and some shortness of breath for over 3 weeks. Patient states she was seen in the emergency department before. Patient states she also has high blood pressure but doesn't take any medicines for because he never got his medications refilled. Patient denies any fevers recently. Patient denies chest pain or palpitations. Patient denies abdominal pain patient denies nausea vomiting or diarrhea. Patient states she just feels fatigued all over. Patient states he does smoke. Patient denies having the COVID vaccine. Patient denies any abdominal pain patient has nausea vomiting diarrhea. - Related Data Previous Rx's Medication Instructions Recorded Lisinopril [Zestril] 20 mg PO DAILY #30 tab 11/02/21 Allergies Allergy/AdvReac Type Severity Reaction Status Date / Time No Known Allergies Allergy Verified 11/02/21 18:42 Review of Systems ROS Statement: Those systems with pertinent positive or pertinent negative responses have been documented in the HPI. ROS Other: All systems not noted in ROS Statement are negative. Past Medical History Past Medical History: Hypertension Additional Past Medical History / Comment(s): hx migraines History of Any Multi-Drug Resistant Organisms: MRSA Date of last positivie culture/infection: 07/26/21 MDRO Source:: Right Testicle Past Surgical History: No Surgical Hx Reported Additional Past Surgical History / Comment(s): fx Tibia and fibula, I&D testicle, Past Anesthesia/Blood Transfusion Reactions: No Reported Reaction Past Psychological History: ADD/ADHD, Anxiety, Depression Smoking Status: Current every day smoker Past Alcohol Use History: None Reported Past Drug Use History: None Reported, Cocaine, Marijuana - Past Family History Mother Family Medical History: Cancer Additional Family Medical History / Comment(s): cervical cancer Father Family Medical History: Cancer Additional Family Medical History / Comment(s): Father in 1997 from lung and liver cancer General Exam - General Exam Comments Initial Comments: GENERAL: Patient is well-developed and well-nourished. Patient is nontoxic and well- hydrated and is in mild distress. ENT: Neck is soft and supple. No significant lymphadenopathy is noted. Oropharynx is clear. Moist mucous membranes. Neck has full range of motion without eliciting any pain. EYES: The sclera were anicteric and conjunctiva were pink and moist. Extraocular movements were intact and pupils were equal round and reactive to light. Eyelids were unremarkable. PULMONARY: Unlabored respirations. Good breath sounds bilaterally. No audible rales rhonchi or wheezing was noted. CARDIOVASCULAR: There is a regular rate and rhythm without any murmurs gallops or rubs. ABDOMEN: Soft and nontender with normal bowel sounds. SKIN: Skin is clear with no lesions or rashes and otherwise unremarkable. NEUROLOGIC: Patient is alert and oriented x3. Cranial nerves II through XII are grossly intact. Motor and sensory are also intact. Normal speech, volume and content. Symmetrical smile. MUSCULOSKELETAL: Normal extremities with adequate strength and full range of motion. LYMPHATICS: No significant lymphadenopathy is noted PSYCHIATRIC: Normal psychiatric evaluation. Limitations: no limitations Course Vital Signs 11/02/21 11/02/21 11/02/21 18:42 19:20 20:18 Temperature 97.6 F 97.4 F L Pulse Rate 110 H 95 Respiratory 20 18 16 Rate Blood Pressure 194/122 172/94 O2 Sat by Pulse 100 96 Oximetry 11/02/21 20:37 Temperature Pulse Rate Respiratory Rate Blood Pressure 163/94 O2 Sat by Pulse Oximetry Medical Decision Making - Medical Decision Making Patient has high blood pressure and gave him 20 of hydralazine initially. Patient has not picked up his blood pressure medication since March. Patient also received Vasotec 1.25. Pressure came down nicely. Patient was feeling better after some fluid. Patient was unable to get monoclonal antibodies. These symptoms started at least 3-4 weeks ago. - Lab Data Result diagrams: 11/02/21 20:03 11/02/21 20:03 Lab Results 11/02/21 11/02/21 11/02/21 Range/Units 18:46 20:03 20:03 WBC 4.0 (3.8-10.6) k/uL RBC 4.13 L (4.30-5.90) m/uL Hgb 12.9 L (13.0-17.5) gm/dL Hct 38.2 L (39.0-53.0) % MCV 92.3 (80.0-100.0) fL MCH 31.1 (25.0-35.0) pg MCHC 33.7 (31.0-37.0) g/dL RDW 16.6 H (11.5-15.5) % Plt Count 201 (150-450) k/uL MPV 7.6 Neutrophils % 68 % Lymphocytes % 21 % Monocytes % 7 % Eosinophils % 1 % Basophils % 0 % Neutrophils # 2.7 (1.3-7.7) k/uL Lymphocytes # 0.8 L (1.0-4.8) k/uL Monocytes # 0.3 (0-1.0) k/uL Eosinophils # 0.0 (0-0.7) k/uL Basophils # 0.0 (0-0.2) k/uL Anisocytosis Slight Sodium 136 L (137-145) mmol/L Potassium 3.7 (3.5-5.1) mmol/L Chloride 105 (98-107) mmol/L Carbon Dioxide 22 (22-30) mmol/L Anion Gap 9 mmol/L BUN 13 (9-20) mg/dL Creatinine 1.12 (0.66-1.25) mg/dL Est GFR (CKD-EPI)AfAm >90 (>60 ml/min/1.73 sqM) Est GFR (CKD-EPI)NonAf 85 (>60 ml/min/1.73 sqM) Glucose 114 H (74-99) mg/dL Calcium 7.5 L (8.4-10.2) mg/dL Total Bilirubin 0.5 (0.2-1.3) mg/dL AST 291 H (17-59) U/L ALT 170 H (4-49) U/L Alkaline Phosphatase 105 (38-126) U/L Total Protein 7.1 (6.3-8.2) g/dL Albumin 3.1 L (3.5-5.0) g/dL Coronavirus (PCR) Detected A (Not Detectd) Disposition Clinical Impression: Hypertensive urgency, COVID-19 Disposition: HOME SELF-CARE Instructions (If sedation given, give patient instructions): Coronavirus Disease 2019 (COVID-19), Hypertension (ED) Prescriptions: Lisinopril [Zestril] 20 mg PO DAILY #30 tab Is patient prescribed a controlled substance at d/c from ED?: No Referrals: None,Stated [Primary Care Provider] - 1-2 days Time of Disposition: 20:53
--- NOTE | 2021-11-02 20:05 | XR ---
EXAMINATION TYPE: XR chest 1V portable DATE OF EXAM: 11/02/2021 COMPARISON: 10/17/2021 HISTORY: Shortness of breath. TECHNIQUE: Single frontal view of the chest is obtained. FINDINGS: There is no focal air space opacity, pleural effusion, or pneumothorax seen. The cardiac silhouette size is within normal limits. The osseous structures are intact. IMPRESSION: No acute process.
[2021-11-02 20:11] LABS: Anisocytosis Slight; Basophils % (A) 0 %; Eosinophils % (A) 1 %; HCT 38.2 % (39.0-53.0); HGB 12.9 gm/dL (13.0-17.5); Lymphocytes # (A) 0.8 k/uL (1.0-4.8); Lymphocytes % (A) 21 %; MCH 31.1 pg (25.0-35.0); MCHC 33.7 g/dL (31.0-37.0); MCV 92.3 fL (80.0-100.0); Mean Platelet Volume 7.6; Monocytes # (A) 0.3 k/uL (0-1.0); Monocytes % (A) 7 %; Neutrophils # (A) 2.7 k/uL (1.3-7.7); Neutrophils % (A) 68 %; Platelet Count 201 k/uL (150-450); RBC 4.13 m/uL (4.30-5.90); RDW 16.6 % (11.5-15.5)
[2021-11-02 20:20] VITALS: TEMP 97.4
[2021-11-02 20:21] LABS: ALT 170 U/L (4-49); AST 291 U/L (17-59); African American GFR (CKD) >90 (>60 ml/min/1.73 sqM); Albumin 3.1 g/dL (3.5-5.0); Alkaline Phosphatase 105 U/L (38-126); Anion Gap 9 mmol/L; Blood Urea Nitrogen 13 mg/dL (9-20); Calcium 7.5 mg/dL (8.4-10.2); Carbon Dioxide 22 mmol/L (22-30); Chloride 105 mmol/L (98-107); Glucose 114 mg/dL (74-99); Non-African American GFR(CKD) 85 (>60 ml/min/1.73 sqM); Potassium 3.7 mmol/L (3.5-5.1); Sodium 136 mmol/L (137-145); Total Bilirubin 0.5 mg/dL (0.2-1.3); Total Protein 7.1 g/dL (6.3-8.2)
[2021-11-02] MEDS ORDERED: ENALAPRILAT 1.25 MG/ML 1 ML VIAL IVP STA (20:22)
[2021-11-02 21:10] VITALS: BP 153/91; PULSE 74; RESP 18
== END 2021-11-02 21:31 | disposition home or self-care (01) ==
LOC: EC 18:39
DX: U07.1 COVID-19 (principal); I16.0 Hypertensive urgency; I10 Essential (primary) hypertension; F17.200 Nicotine dependence, unspecified, uncomplicated; Z79.899 Other long term (current) drug therapy
CPT/HCPCS: 36415; 80053; 85025; 87635; 71045; 99285; 96374; 96375; 96361; J0360

== ENCOUNTER 2021-11-02 22:22 | Emergency (ER) | payer OTHER ==
[2021-11-02 22:31] VITALS: BP 112/84
[2021-11-02 23:20] VITALS: PULSE 85; RESP 16; TEMP 98.2
--- NOTE | 2021-11-02 23:30 | ED ---
General Adult HPI - General Chief complaint: Recheck/Abnormal Lab/Rx Stated complaint: Upset stomach, Covid+ Source: patient Mode of arrival: ambulatory Limitations: no limitations - History of Present Illness Initial comments: Luis is a 36-year-old male [facility] stating that he just doesn't feel good and needs somewhere to lay down. He states he is COVID- 19 he's not getting any better sleeping on the streets, he states he can't get any rest due to myalgias fevers and chills. He states that he just needs somewhere to sleep comfortably. He cannot get in [facility] because he was released from the hospital to late in the day today. - Related Data Previous Rx's Medication Instructions Recorded Lisinopril [Zestril] 20 mg PO DAILY #30 tab 11/02/21 Allergies Allergy/AdvReac Type Severity Reaction Status Date / Time No Known Allergies Allergy Verified 11/02/21 22:27 Review of Systems ROS Statement: Those systems with pertinent positive or pertinent negative responses have been documented in the HPI. ROS Other: All systems not noted in ROS Statement are negative. Past Medical History Past Medical History: Hypertension Additional Past Medical History / Comment(s): hx migraines History of Any Multi-Drug Resistant Organisms: MRSA Date of last positivie culture/infection: 07/26/21 MDRO Source:: Right Testicle Past Surgical History: No Surgical Hx Reported Additional Past Surgical History / Comment(s): fx Tibia and fibula, I&D testicle, Past Anesthesia/Blood Transfusion Reactions: No Reported Reaction Past Psychological History: ADD/ADHD, Anxiety, Depression Smoking Status: Current every day smoker Past Alcohol Use History: None Reported Past Drug Use History: None Reported, Cocaine, Marijuana - Past Family History Mother Family Medical History: Cancer Additional Family Medical History / Comment(s): cervical cancer Father Family Medical History: Cancer Additional Family Medical History / Comment(s): Father in 1997 from lung and liver cancer General Exam - General Exam Comments Initial Comments: Physical Exam GENERAL: Patient is well-developed and well-nourished. Patient is nontoxic and well- hydrated and is in no distress. HENT: Normocephalic, Atraumatic. EYES: PERRL, EOMI PULMONARY: Unlabored respirations. No audible rales rhonchi or wheezing was noted. CARDIOVASCULAR: There is a regular rate and rhythm without any murmurs gallops or rubs. ABDOMEN: Soft and nontender with normal bowel sounds. SKIN: Skin is clear with no lesions or rashes and otherwise unremarkable. : Deferred NEUROLOGIC: Patient is alert and oriented x3. Moving all extremities spontaneously MUSCULOSKELETAL: Normal extremities with adequate strength and full range of motion. No lower extremity swelling or edema. No calf tenderness. PSYCHIATRIC: Normal psychiatric evaluation. Limitations: no limitations Course Vital Signs 11/02/21 11/02/21 22:27 23:18 Temperature 97.7 F 98.2 F Pulse Rate 84 85 Respiratory 20 16 Rate Blood Pressure 112/84 O2 Sat by Pulse 97 98 Oximetry Medical Decision Making - Medical Decision Making She was seen and evaluated history was obtained patient medical record, this is stable 36-year-old gentleman who suffering from COVID-19. He is afebrile not tachycardic nor hypoxic not tachypneic he is in no distress. He states he just can't get comfortable due to myalgias fevers and chills. States he just needs a place to sleep. There is no indication for hospitalization the patient will be discharged from the emergency department. Disposition Clinical Impression: COVID-19 Disposition: HOME SELF-CARE Condition: Stable Instructions (If sedation given, give patient instructions): Coronavirus Disease 2019 (COVID-19) Is patient prescribed a controlled substance at d/c from ED?: No Referrals: None,Stated [Primary Care Provider] - 1-2 days
== END 2021-11-03 00:40 | disposition home or self-care (01) ==
LOC: EC 22:22
DX: U07.1 COVID-19 (principal); I10 Essential (primary) hypertension; F41.9 Anxiety disorder, unspecified; F32.A Depression, unspecified; F90.9 Attention-deficit hyperactivity disorder, unspecified type; F17.200 Nicotine dependence, unspecified, uncomplicated; F12.90 Cannabis use, unspecified, uncomplicated
CPT/HCPCS: 99283

== ENCOUNTER 2021-11-04 11:28 | Emergency (ER) | payer OTHER ==
[2021-11-04] MEDS ORDERED: ACETAMINOPHEN TAB 500 MG TAB PO STA (11:54)
[2021-11-04] MEDS ORDERED: IBUPROFEN 600 MG TAB PO STA (11:54)
[2021-11-04] MEDS ORDERED: SODIUM CHLORIDE 0.9% 1,000 ML IV ONE (11:58)
[2021-11-04 12:19] LABS: Basophils % (A) 0 %; Eosinophils # (A) 0.1 k/uL (0-0.7); Eosinophils % (A) 1 %; HCT 42.2 % (39.0-53.0); HGB 13.8 gm/dL (13.0-17.5); Lymphocytes # (A) 0.8 k/uL (1.0-4.8); Lymphocytes % (A) 10 %; MCH 29.5 pg (25.0-35.0); MCHC 32.6 g/dL (31.0-37.0); MCV 90.3 fL (80.0-100.0); Mean Platelet Volume 8.4; Monocytes # (A) 0.5 k/uL (0-1.0); Monocytes % (A) 7 %; Neutrophils # (A) 6.6 k/uL (1.3-7.7); Neutrophils % (A) 81 %; Platelet Count 174 k/uL (150-450); RBC 4.67 m/uL (4.30-5.90); RDW 15.9 % (11.5-15.5); WBC 8.1 k/uL (3.8-10.6)
[2021-11-04 12:29] LABS: ALT 146 U/L (4-49); AST 185 U/L (17-59); African American GFR (CKD) >90 (>60 ml/min/1.73 sqM); Albumin 3.2 g/dL (3.5-5.0); Alkaline Phosphatase 120 U/L (38-126); Blood Urea Nitrogen 13 mg/dL (9-20); Calcium 8.1 mg/dL (8.4-10.2); Carbon Dioxide 21 mmol/L (22-30); Glucose 103 mg/dL (74-99); Non-African American GFR(CKD) >90 (>60 ml/min/1.73 sqM); Potassium 3.8 mmol/L (3.5-5.1); Sodium 132 mmol/L (137-145); Total Bilirubin 0.6 mg/dL (0.2-1.3); Total Protein 7.6 g/dL (6.3-8.2)
[2021-11-04 12:36] LABS: Anion Gap 10 mmol/L; Chloride 101 mmol/L (98-107)
[2021-11-04] MEDS ORDERED: lisinopriL 20 MG TAB PO STA (12:59)
--- NOTE | 2021-11-04 13:39 | ED ---
General Adult HPI - General Chief complaint: ENT Stated complaint: COVID+ Body Aches, Revisit Time Seen by Provider: 11/04/21 11:42 Source: patient, RN notes reviewed, old records reviewed Mode of arrival: EMS - History of Present Illness Initial comments: 36 -year-old male presenting for evaluation of sore throat, cough, body aches. Patient was diagnosed with coronavirus 2 days ago. He states he's had symptoms for several weeks. It was determined on previous visit that he did not qualify for monoclonal antibodies due to the duration of symptoms. Patient is somewhat reluctant to give a detailed history. He states he is homeless. No dyspnea. He's also states that he has not been taking his blood pressure medication with a known history of hypertension. - Related Data Previous Rx's Medication Instructions Recorded Lisinopril [Zestril] 20 mg PO DAILY #30 tab 11/02/21 Allergies Allergy/AdvReac Type Severity Reaction Status Date / Time No Known Allergies Allergy Verified 11/04/21 12:00 Review of Systems ROS Statement: Those systems with pertinent positive or pertinent negative responses have been documented in the HPI. ROS Other: All systems not noted in ROS Statement are negative. Past Medical History Past Medical History: Hypertension Additional Past Medical History / Comment(s): hx migraines History of Any Multi-Drug Resistant Organisms: MRSA Date of last positivie culture/infection: 07/26/21 MDRO Source:: Right Testicle Past Surgical History: No Surgical Hx Reported Additional Past Surgical History / Comment(s): fx Tibia and fibula, I&D testicle, Past Anesthesia/Blood Transfusion Reactions: No Reported Reaction Past Psychological History: ADD/ADHD, Anxiety, Depression Smoking Status: Current every day smoker Past Alcohol Use History: None Reported Past Drug Use History: None Reported, Cocaine, Marijuana - Past Family History Mother Family Medical History: Cancer Additional Family Medical History / Comment(s): cervical cancer Father Family Medical History: Cancer Additional Family Medical History / Comment(s): Father in 1997 from lung and liver cancer General Exam General appearance: alert, in no apparent distress Head exam: Present: atraumatic, normocephalic Eye exam: Present: normal appearance, PERRL ENT exam: Present: mucous membranes dry. Absent: normal oropharynx (Erythematous) Neck exam: Present: normal inspection. Absent: tenderness, meningismus Respiratory exam: Present: normal lung sounds bilaterally. Absent: respiratory distress, wheezes Cardiovascular Exam: Present: normal rhythm, tachycardia GI/Abdominal exam: Present: soft. Absent: distended, tenderness, guarding Extremities exam: Present: normal inspection, normal capillary refill. Absent: pedal edema Neurological exam: Present: alert, oriented X3, CN II-XII intact. Absent: motor sensory deficit Skin exam: Present: warm, dry, intact. Absent: cyanosis, diaphoretic Course Vital Signs 11/04/21 11/04/21 11:48 12:47 Temperature 102.3 F H 97.6 F Pulse Rate 107 H Respiratory 16 Rate Blood Pressure 209/165 O2 Sat by Pulse 99 Oximetry Medical Decision Making - Medical Decision Making 36-year-old male with Covid. The patient has states he's been sick for several weeks. He is not hypoxic. He is hypertensive and has been off of his blood pressure medication. He is given a dose in the emergency department. Patient is also given IV fluids and Tylenol and Motrin. He is resting comfortably on reevaluation no respiratory distress. Patient was allowed to obtain some rest in the emergency department for approximately 4 hours. - Lab Data Result diagrams: 11/04/21 12:09 11/04/21 12:09 Lab Results 11/04/21 11/04/21 Range/Units 12:09 12:09 WBC 8.1 (3.8-10.6) k/uL RBC 4.67 (4.30-5.90) m/uL Hgb 13.8 (13.0-17.5) gm/dL Hct 42.2 (39.0-53.0) % MCV 90.3 (80.0-100.0) fL MCH 29.5 (25.0-35.0) pg MCHC 32.6 (31.0-37.0) g/dL RDW 15.9 H (11.5-15.5) % Plt Count 174 (150-450) k/uL MPV 8.4 Neutrophils % 81 % Lymphocytes % 10 % Monocytes % 7 % Eosinophils % 1 % Basophils % 0 % Neutrophils # 6.6 (1.3-7.7) k/uL Lymphocytes # 0.8 L (1.0-4.8) k/uL Monocytes # 0.5 (0-1.0) k/uL Eosinophils # 0.1 (0-0.7) k/uL Basophils # 0.0 (0-0.2) k/uL Sodium 132 L (137-145) mmol/L Potassium 3.8 (3.5-5.1) mmol/L Chloride 101 (98-107) mmol/L Carbon Dioxide 21 L (22-30) mmol/L Anion Gap 10 mmol/L BUN 13 (9-20) mg/dL Creatinine 1.01 (0.66-1.25) mg/dL Est GFR (CKD-EPI)AfAm >90 (>60 ml/min/1.73 sqM) Est GFR (CKD-EPI)NonAf >90 (>60 ml/min/1.73 sqM) Glucose 103 H (74-99) mg/dL Calcium 8.1 L (8.4-10.2) mg/dL Total Bilirubin 0.6 (0.2-1.3) mg/dL AST 185 H (17-59) U/L ALT 146 H (4-49) U/L Alkaline Phosphatase 120 (38-126) U/L Total Protein 7.6 (6.3-8.2) g/dL Albumin 3.2 L (3.5-5.0) g/dL Disposition Clinical Impression: COVID-19, Hypertension Disposition: HOME SELF-CARE Condition: Fair Instructions (If sedation given, give patient instructions): Coronavirus Disease 2019 (COVID-19) Is patient prescribed a controlled substance at d/c from ED?: No Referrals: None,Stated [Primary Care Provider] - 1-2 days Emily Badillo MD [REFERRING] - 1-2 days Time of Disposition: 14:08
[2021-11-04 15:36] VITALS: BP 156/78; PULSE 90; RESP 16; TEMP 98
== END 2021-11-04 15:25 | disposition home or self-care (01) ==
LOC: EC 11:28
DX: U07.1 COVID-19 (principal); I10 Essential (primary) hypertension; F41.9 Anxiety disorder, unspecified; F32.A Depression, unspecified; F90.9 Attention-deficit hyperactivity disorder, unspecified type; F17.200 Nicotine dependence, unspecified, uncomplicated; F12.90 Cannabis use, unspecified, uncomplicated
CPT/HCPCS: 36415; 80053; 85025; 96360; 99283

== ENCOUNTER 2022-05-31 01:10 | Observation (INO) | payer OTHER ==
[2022-05-31 01:28] VITALS: TEMP 98.5
[2022-05-31 02:04] LABS: Prothrombin Time 10.4 sec (9.0-12.0)
[2022-05-31 02:12] LABS: Basophils # (A) 0.3 k/uL (0-0.2); Basophils % (A) 3 %; Eosinophils # (A) 0.2 k/uL (0-0.7); Eosinophils % (A) 2 %; HGB 15.4 gm/dL (13.0-17.5); Lymphocytes # (A) 1.1 k/uL (1.0-4.8); Lymphocytes % (A) 11 %; MCH 30.5 pg (25.0-35.0); MCHC 33.4 g/dL (31.0-37.0); MCV 91.1 fL (80.0-100.0); Mean Platelet Volume 7.7; Monocytes # (A) 0.9 k/uL (0-1.0); Monocytes % (A) 9 %; Neutrophils # (A) 7.4 k/uL (1.3-7.7); Neutrophils % (A) 74 %; Platelet Count 203 k/uL (150-450); RBC 5.05 m/uL (4.30-5.90); RDW 13.3 % (11.5-15.5); WBC 9.9 k/uL (3.8-10.6)
[2022-05-31] MEDS ORDERED: NITROGLYCERIN SL TABS 0.4 MG TAB SUBLINGUAL STA (02:23)
[2022-05-31] MEDS ORDERED: ASPIRIN 81 MG PO STA (02:23)
[2022-05-31] MEDS ORDERED: METOPROLOL TARTRATE 25 MG TAB PO STA (02:23)
[2022-05-31] MEDS ORDERED: LORazepam 2 MG/ML INJ IV STA (02:33)
[2022-05-31 02:37] LABS: ALT 76 U/L (4-49); AST 77 U/L (17-59); African American GFR (CKD) >90 (>60 ml/min/1.73 sqM); Albumin 3.6 g/dL (3.5-5.0); Alkaline Phosphatase 143 U/L (38-126); Anion Gap 9 mmol/L; Blood Urea Nitrogen 21 mg/dL (9-20); Calcium 8.1 mg/dL (8.4-10.2); Carbon Dioxide 23 mmol/L (22-30); Chloride 105 mmol/L (98-107); Glucose 129 mg/dL (74-99); Non-African American GFR(CKD) >90 (>60 ml/min/1.73 sqM); Potassium 3.6 mmol/L (3.5-5.1); Sodium 137 mmol/L (137-145); Total Bilirubin 0.3 mg/dL (0.2-1.3); Total Protein 6.9 g/dL (6.3-8.2)
[2022-05-31] MEDS ORDERED: METOPROLOL TARTRATE 5 MG/5 ML VIAL IVP STA (04:04)
[2022-05-31] MEDS ORDERED: HEPARIN SODIUM 1,000 UN/ML (10ML VL) IV ONE (04:32)
[2022-05-31] MEDS ORDERED: NITROGLYCERIN SL TABS 0.4 MG TAB SUBLINGUAL PRN (04:32)
[2022-05-31] MEDS ORDERED: HEPARIN SOD,PORK IN 0.45% NACL 25,000 UNIT in 0.45% NACL 1 250ML.BAG IV SCH (04:45)
--- NOTE | 2022-05-31 05:02 | XR ---
EXAM: XR Chest, 2 Views CLINICAL HISTORY: ITS.REASON XR Reason: chest pain TECHNIQUE: Frontal and lateral views of the chest. COMPARISON: No relevant prior studies available. FINDINGS: Lungs: No focal consolidation. The pulmonary vasculature demonstrates no significant radiographic abnormality. Pleural space: Unremarkable. No pneumothorax. No large pleural effusion. Heart: Unremarkable. No cardiomegaly. Mediastinum: Unremarkable. No significant abnormality identified. The trachea is midline. Bones/joints: Unremarkable. IMPRESSION: No focal consolidation or acute cardiopulmonary process identified.
--- NOTE | 2022-05-31 05:48 | CT ---
EXAMINATION TYPE: CT angio thor/abd pel aorta DATE OF EXAM: 05/31/2022 COMPARISON: Most recent CT July 26, 2021 HISTORY: hypertension CT DLP: 1222.2 mGycm. Automated Exposure Control for Dose Reduction was Utilized. CONTRAST: CTA scan of the thorax, abdomen and pelvis is performed without and with IV Contrast, patient injecte d with 100 mL of Isovue 370. 3-D reconstructed images are created on an independent workstation and r eviewed. FINDINGS: Vascular: Noncontrast images show no suspicious hyperdense material to suggest intramural hematoma. T here is no linear hypodensity in the aorta to its suggest dissection on postcontrast images. There is three-vessel origin from the aortic arch. There is a patent celiac artery and SMA along with bilater al renal arteries and ALMA. Patent iliac vessels and femoral vessels are identified. No significant pl aque or stenosis. No aneurysm. LUNGS: Significant respiratory motion artifact compromise. No focal consolidations. No pleural effusi on or pneumothorax seen. MEDIASTINUM: There are no greater than 1 cm hilar or mediastinal lymph nodes. No cardiomegaly or pe ricardial effusion is seen. LIVER/GB: No significant abnormality is appreciated. PANCREAS: No significant abnormality is seen. SPLEEN: No significant abnormality is seen. ADRENALS: No significant abnormality is seen. KIDNEYS: No significant abnormality is seen. BOWEL: Suboptimal evaluation without enteric contrast. No suspicious small or large bowel dilatation. GENITAL ORGANS: No gross abnormality seen. LYMPH NODES: No greater than 1cm abdominal or pelvic lymph nodes are appreciated. OSSEOUS STRUCTURES: No significant abnormality is seen. OTHER: No significant additional abnormality is seen. IMPRESSION: No thoracic aortic aneurysm or dissection. No acute findings are evident.
[2022-05-31] MEDS ORDERED: LABETALOL 5 MG/ML VIAL MDV IVP STA (05:55)
[2022-05-31] MEDS ORDERED: MORPHINE SULFATE 4 MG/ML SYRINGE IV STA (05:55)
--- NOTE | 2022-05-31 06:29 | ED ---
Chest Pain HPI - General Chief Complaint: Dizziness Stated Complaint: dizziness, vomiting Time Seen by Provider: 05/31/22 02:19 Source: patient Mode of arrival: ambulatory - History of Present Illness Initial Comments: This patient is a 37-year-old man with history of long-standing hypertension who presents mainly with complaint that he has been dizzy going back for up to 2 wee ks. Further questioning reveals he has also been having chest pains for a couple of days and those were worse after about 7 PM tonight when he had eaten. He indicates substernal area. The pain is tightness moderate intensity. Patient has not had dyspnea, diaphoresis, nausea or vomiting. Patient notes that he has been out of his antihypertensives going back a number of months now. MD Complaint: chest pain -: days(s) Onset: during rest Pain Location: substernal Pain Radiation: none Severity: moderate Quality: tightness Consistency: constant Improves With: nothing Worsens With: nothing Treatments Prior to Arrival: none - Related Data Home Medications Medication Instructions Recorded Confirmed No Known Home Medications 05/31/22 05/31/22 Allergies Allergy/AdvReac Type Severity Reaction Status Date / Time No Known Allergies Allergy Verified 05/31/22 06:16 Review of Systems ROS Statement: Those systems with pertinent positive or pertinent negative responses have been documented in the HPI. ROS Other: All systems not noted in ROS Statement are negative. Constitutional: Denies: fever, chills Respiratory: Denies: cough, dyspnea Cardiovascular: Reports: chest pain. Denies: palpitations, orthopnea, edema, syncope Gastrointestinal: Reports: nausea. Denies: abdominal pain, vomiting, diarrhea Genitourinary: Denies: dysuria, hematuria Musculoskeletal: Denies: back pain Skin: Denies: rash Neurological: Reports: vertigo. Denies: headache, weakness, numbness EKG Findings - EKG Results: EKG: interpreted by ERMD, sinus rhythm (Rate 97 bpm) - Blocks, [place], Hypertrophy, ST Abn: AV and intraventricular conduction: right bundle branch block (fixed/intermittent, complete/incomplete) (Incomplete) Chamber hypertrophy or enlargement: left ventricular hypertrophy or enlargement (LVE) Past Medical History Past Medical History: Hypertension Additional Past Medical History / Comment(s): hx migraines History of Any Multi-Drug Resistant Organisms: MRSA Date of last positivie culture/infection: 07/26/21 MDRO Source:: Right Testicle Past Surgical History: No Surgical Hx Reported Additional Past Surgical History / Comment(s): fx Tibia and fibula, I&D testicle, Past Anesthesia/Blood Transfusion Reactions: No Reported Reaction Past Psychological History: ADD/ADHD, Anxiety, Depression Smoking Status: Current every day smoker Past Alcohol Use History: None Reported Past Drug Use History: None Reported, Cocaine, Marijuana - Past Family History Mother Family Medical History: Cancer Additional Family Medical History / Comment(s): cervical cancer Father Family Medical History: Cancer Additional Family Medical History / Comment(s): Father in 1997 from lung and liver cancer General Exam General appearance: alert, in no apparent distress Head exam: Present: atraumatic, normocephalic Eye exam: Present: normal appearance. Absent: scleral icterus, conjunctival injection Neck exam: Present: normal inspection Respiratory exam: Present: normal lung sounds bilaterally. Absent: respiratory distress, wheezes, rales, rhonchi, stridor, accessory muscle use Cardiovascular Exam: Present: regular rate, normal rhythm, normal heart sounds. Absent: systolic murmur, diastolic murmur, rubs, gallop GI/Abdominal exam: Present: soft. Absent: distended, tenderness, guarding, rebound, rigid, mass Extremities exam: Present: normal inspection, normal capillary refill. Absent: pedal edema, calf tenderness Back exam: Present: normal inspection. Absent: CVA tenderness (R), CVA tenderness (L) Neurological exam: Present: alert Skin exam: Present: warm, dry, intact, normal color. Absent: rash Course Vital Signs 05/31/22 05/31/22 05/31/22 01:24 03:44 05:56 Temperature 98.5 F Pulse Rate 98 90 89 Respiratory 19 18 18 Rate Blood Pressure 200/130 188/104 185/111 O2 Sat by Pulse 99 95 97 Oximetry
[2022-05-31] MEDS ORDERED: hydrALAZINE HCL 20 MG/ML 1 ML VIAL IVP STA ×2 (06:46→07:48)
[2022-05-31] MEDS ORDERED: INSULIN ASPART (NovoLOG) 100 UNIT/ML VIAL SQ SCH (07:30)
[2022-05-31] MEDS ORDERED: HYDROmorphone 1 MG/ML 1 ML SYRINGE IVP STA (07:47)
[2022-05-31 07:52] LABS: Glucose,Whole Blood 85 mg/dL (70-110)
[2022-05-31 08:34] VITALS: PULSE 71; RESP 18
[2022-05-31 08:57] VITALS: BP 134/93
[2022-05-31] MEDS ORDERED: METOPROLOL TARTRATE 25 MG TAB PO SCH (09:30)
--- NOTE | 2022-05-31 10:41 | P.HPIM ---
History of Present Illness 37-year-old male came in with comments of dizziness and was admitted for chest pain. Patient denied any chest pain which patient is comparing of neck pain. Patient is not cooperative doesn't answer questions very well and belligerent. Patient had troponins that were negative. Patient denies any alcohol abuse but does smell like alcohol during evaluation. Patient had an EKG which showed a left atrial enlargement and left ventricular hypertrophy old septal microinfarction. Patient had EF of around the 35% in the past. Presently not in heart failure exacerbation. Patient doesn't appear to be compliant with any of the recommendations from the previous physicians in the past. Patient denied any fever chills. Chest x-ray did not show any significant abnormality. Patient blood pressure is bit high was started on losartan 50, metoprolol 25 twice a day as recommended by cardiology and aspirin daily and patient got tired 2 sets of troponins which were around 0.06 stable at that level will opt another set of troponin after that patient probably can be discharged as recommended by cardiology. REVIEW OF SYSTEMS: CONSTITUTIONAL: No fever, no malaise, no fatigue. HEENT: No recent visual problems or hearing problems. Denied any sore throat. CARDIOVASCULAR: No chest pain, orthopnea, PND, no palpitations, no syncope. PULMONARY: No shortness of breath, no cough, no hemoptysis. GASTROINTESTINAL: No diarrhea, no nausea, no vomiting, no abdominal pain. NEUROLOGICAL: No headaches, no weakness, no numbness. HEMATOLOGICAL: Denies any bleeding or petechiae. GENITOURINARY: Denies any burning micturition, frequency, or urgency. MUSCULOSKELETAL/RHEUMATOLOGICAL: Denies any joint pain, swelling, or any muscle pain. ENDOCRINE: Denies any polyuria or polydipsia. The rest of the 14-point review of systems is negative. PHYSICAL EXAMINATION: GENERAL: The patient is alert and oriented x3, not in any acute distress. Well developed, well nourished. HEENT: Pupils are round and equally reacting to light. EOMI. No scleral icterus. No conjunctival pallor. Normocephalic, atraumatic. No pharyngeal erythema. No thyromegaly. CARDIOVASCULAR: S1 and S2 present. No murmurs, rubs, or gallops. PULMONARY: Chest is clear to auscultation, no wheezing or crackles. ABDOMEN: Soft, nontender, nondistended, normoactive bowel sounds. No palpable organomegaly. MUSCULOSKELETAL: No joint swelling or deformity. EXTREMITIES: No cyanosis, clubbing, or pedal edema. NEUROLOGICAL: Gross neurological examination did not reveal any focal deficits. SKIN: No rashes. Assessment and plan -Hypertensive urgency with elevated blood pressures patient was started on losartan and metoprolol and considering his heart failure history nil be discharged on losartan and beta jaime. Patient will be discharged on aspirin as well. 2 sets of troponins were obtained which are mildly elevated but stable at 0.06 not indicative of 4 type I microinfarction was evaluated by cardiology. -Neck pain further management as an outpatient patient probably has degenerative neck disease -Hypertensive heart disease patient had history of cocaine use and methamphetamine use and polysubstance use in the past -Mild transaminitis probably secondary to hypertension Patient will be discharged today patient is noncooperative and wanted to leave AGAINST MEDICAL ADVICE Past Medical History Past Medical History: Hypertension Additional Past Medical History / Comment(s): Migraines, L lower extremity cellulitis/sepsis, pilonidal cysts/abscesses History of Any Multi-Drug Resistant Organisms: MRSA Date of last positivie culture/infection: 07/26/21 MDRO Source:: Right Testicle Past Surgical History: No Surgical Hx Reported, Cholecystectomy, Orthopedic Surgery Additional Past Surgical History / Comment(s): I&D testicle, R tib/fib fracture repair with hardware. Past Anesthesia/Blood Transfusion Reactions: No Reported Reaction Smoking Status: Current every day smoker - Past Family History Mother Family Medical History: Cancer Additional Family Medical History / Comment(s): cervical cancer Father Family Medical History: Cancer Additional Family Medical History / Comment(s): Father in 1997 from lung and liver cancer Medications and Allergies Home Medications Medication Instructions Recorded Confirmed Type Aspirin 81 mg PO DAILY #30 tab 05/31/22 Rx Losartan [Cozaar] 50 mg PO DAILY #30 tab 05/31/22 Rx Metoprolol Tartrate [Lopressor] 25 mg PO BID #60 tab 05/31/22 Rx Allergies Allergy/AdvReac Type Severity Reaction Status Date / Time No Known Allergies Allergy Verified 05/31/22 06:16 Physical Exam Vitals: Vital Signs Temp Pulse Resp BP Pulse Ox 05/31/22 08:56 71 18 134/93 97 05/31/22 08:31 71 18 168/114 97 05/31/22 08:00 85 20 179/141 95 05/31/22 07:45 95 05/31/22 06:43 81 18 186/100 95 05/31/22 05:56 89 18 185/111 97 05/31/22 03:44 90 18 188/104 95 05/31/22 01:24 98.5 F 98 19 200/130 99 Intake and Output 05/30/22 05/31/22 05/31/22 22:59 06:59 14:59 Other: Weight 84.822 kg 84.822 kg Results CBC & Chem 7: 05/31/22 01:29 05/31/22 01:29 Labs: Abnormal Lab Results - Last 24 Hours (Table) 05/31/22 05/31/22 05/31/22 Range/Units 01:29 01:29 01:29 Basophils # 0.3 H (0-0.2) k/uL BUN 21 H (9-20) mg/dL Glucose 129 H (74-99) mg/dL Calcium 8.1 L (8.4-10.2) mg/dL AST 77 H (17-59) U/L ALT 76 H (4-49) U/L Alkaline Phosphatase 143 H (38-126) U/L Troponin I 0.066 H* (0.000-0.034) ng/mL 05/31/22 Range/Units 09:06 Basophils # (0-0.2) k/uL BUN (9-20) mg/dL Glucose (74-99) mg/dL Calcium (8.4-10.2) mg/dL AST (17-59) U/L ALT (4-49) U/L Alkaline Phosphatase (38-126) U/L Troponin I 0.062 H* (0.000-0.034) ng/mL Thrombosis Risk Factor Assmnt - Choose All That Apply Any of the Below Risk Factors Present?: Yes Each Factor Represents 1 point: Obesity (BMI >25) Other Risk Factors: No Other congenital or acquired thrombophilia - If yes, enter type in comment: No Thrombosis Risk Factor Assessment Total Risk Factor Score: 1 Thrombosis Risk Factor Assessment Level: Low Risk
--- NOTE | 2022-05-31 10:41 | P.DS ---
Providers Date of admission: 05/31/22 04:32 Attending physician: Sai Mancera Consults: 05/31/22 04:32 Consult Physician Urgent Consulting Provider: Iglesia Logan Consult Reason/Comments: acute coronary syndrome Do you want consulting provider notified?: Yes Primary care physician: Stated None Hospital Course: Please refer to my HPI. Further details Plan - Discharge Summary Discharge Rx Participant: No New Discharge Prescriptions: New Losartan [Cozaar] 50 mg PO DAILY #30 tab Aspirin 81 mg PO DAILY #30 tab Metoprolol Tartrate [Lopressor] 25 mg PO BID #60 tab Discharge Medication List Aspirin 81 mg PO DAILY #30 tab 05/31/22 [Rx] Losartan [Cozaar] 50 mg PO DAILY #30 tab 05/31/22 [Rx] Metoprolol Tartrate [Lopressor] 25 mg PO BID #60 tab 05/31/22 [Rx] Follow up Appointment(s)/Referral(s): [facility] [NON-STAFF] - 1 Week Discharge Disposition: HOME SELF-CARE
--- NOTE | 2022-05-31 19:51 | CONS ---
CONSULTATION This is a 37-year-old gentleman with a history of alcoholism and previous hospitalization with hypertension. He comes into the hospital mainly with complaints of having some discomfort in the neck area and his blood pressure was elevated. He has not been taking his medications and he also complained of some sharp pains in the chest on and off. He has had his initial troponin drawn which was 0.06, but subsequently refused the blood draw. At the time of my evaluation he absolutely denies any chest pain. He has neck discomfort which is chronic and he has not been taking any medications and stopped seeing his primary care physician. His blood pressure is better since he arrived. He is resting comfortably. I have requested that he should allow us to draw at least one more blood drop. We will check another repeat troponin. This patient has history of hypertension, abnormal EKG, migraine headaches and also previous history with acute alcoholism. At the time of my evaluation he complains of neck discomfort with some arthritic pain but CT scan of the chest was performed and there is no evidence to suggest any aortic pathology. EKG revealed a sinus mechanism with nonspecific ST and T-wave changes which are not new. Troponin is in the equivocal range, but clinical picture does not suggest any myocardial injury. On examination, blood pressure is 130/90, pulse rate is 70 per minute. HEENT unremarkable. Fundus was not examined by me. Neck is supple. No JVD. I do not hear a carotid bruit. Heart exam reveals S1, S2 heard normally in all areas without a rub murmur or gallop. Lungs are clear. Abdomen is soft, nontender. Lower extremities reveal diminished pulses. Central nervous system grossly within normal limits. IMPRESSION: 1. Accelerated hypertension. 2. Atypical chest and neck pain. 3. Equivocal troponins not suggestive of myocardial injury. 4. History of chronic alcoholism. RECOMMENDATIONS: I recommend that we resume his medications in the form of metoprolol tartrate 25 mg b.i.d. and also amlodipine 5 mg daily and obtain additional troponin and if this is in the same equivocal range are normal, he can be discharged. I discussed my thoughts in detail with the patient. Thank you very much for the consult. MMODL / IJN: [id number] /
[2022-05-31] MEDS ORDERED: amLODIPine 5 MG TAB PO SCH (21:00)
[2022-06-01] MEDS ORDERED: ASPIRIN 325 MG TAB PO SCH (09:00)
== END 2022-05-31 10:51 | disposition home or self-care (01) ==
LOC: EC 01:10 → 3SCARD 04:32
PROVIDERS: ADMIT Hospitalist; ATTEND Hospitalist
DX: I16.0 Hypertensive urgency (principal); I11.0 Hypertensive heart disease with heart failure; R94.31 Abnormal electrocardiogram [ECG] [EKG]; R07.89 Other chest pain; M47.812 Spondylosis without myelopathy or radiculopathy, cervical region; R79.89 Other specified abnormal findings of blood chemistry; G43.909 Migraine, unspecified, not intractable, without status migrainosus; F32.A Depression, unspecified; F41.9 Anxiety disorder, unspecified; F90.9 Attention-deficit hyperactivity disorder, unspecified type; F10.21 Alcohol dependence, in remission; R74.01 Elevation of levels of liver transaminase levels; E66.9 Obesity, unspecified; Z68.30 Body mass index [BMI] 30.0-30.9, adult; F17.200 Nicotine dependence, unspecified, uncomplicated; Z91.14 Patient's other noncompliance with medication regimen; Z86.19 Personal history of other infectious and parasitic diseases; Z86.14 Personal history of Methicillin resistant Staphylococcus aureus infection; Z87.898 Personal history of other specified conditions; Z80.49 Family history of malignant neoplasm of other genital organs; Z80.1 Family history of malignant neoplasm of trachea, bronchus and lung; Z80.0 Family history of malignant neoplasm of digestive organs
CPT/HCPCS: 96376; 96365; 96366; 96375; 99285; 36415; 94760; 93005; 80053; 84484; 85025; 85610; 83036; 71046; 71275; 74174; G0378; J2060; J2270; J0360; J1644 ×2; J1170; Q9967

== ENCOUNTER 2022-06-01 20:43 | Emergency (ER) | payer OTHER ==
[2022-06-01] MEDS ORDERED: ONDANSETRON 4 MG/2 ML VIAL IVP STA (20:53)
[2022-06-01] MEDS ORDERED: SODIUM CHLORIDE 0.9% 1,000 ML IV STA (20:55)
[2022-06-01] MEDS ORDERED: METOPROLOL TARTRATE 5 MG/5 ML VIAL IVP STA (20:56)
[2022-06-01 20:59] VITALS: RESP 16; TEMP 97
--- NOTE | 2022-06-01 21:43 | ED ---
Alcohol HPI - General Chief Complaint: Recheck/Abnormal Lab/Rx Stated Complaint: Hypertension Time Seen by Provider: 06/01/22 20:52 Source: patient, EMS, RN notes reviewed Mode of arrival: EMS Limitations: no limitations - History of Present Illness Initial Comments: Patient is a 37-year-old male who is brought in to the emergency room via EMS after he and another homeless man had been her walking around town called 911 with complaints of significant intoxication along with a headache. He was recently discharged from the hospital for uncontrolled hypertension. He admits to drinking a pint of liquor earlier today. He did not pecan picker his prescriptions that were prescribed on discharge yesterday. He is very nauseated and vomiting and reports continuing to drink alcohol just prior to EMSs arrival. He denies any illicit drug use since leaving the hospital yesterday including her when or cocaine. He denies any chest pain or shortness of breath. In addition to his hypertension polysubstance and EtOH abuse she has a history of recurrent cellulitis and migraines. He denies any other complaints or concerns at this time. - Related Data Previous Rx's Medication Instructions Recorded Aspirin 81 mg PO DAILY #30 tab 05/31/22 Losartan [Cozaar] 50 mg PO DAILY #30 tab 05/31/22 Metoprolol Tartrate [Lopressor] 25 mg PO BID #60 tab 05/31/22 Allergies Allergy/AdvReac Type Severity Reaction Status Date / Time No Known Allergies Allergy Verified 06/01/22 22:37 Review of Systems ROS Statement: Those systems with pertinent positive or pertinent negative responses have been documented in the HPI. ROS Other: All systems not noted in ROS Statement are negative. Past Medical History Past Medical History: Hypertension Additional Past Medical History / Comment(s): Migraines, L lower extremity cellulitis/sepsis, pilonidal cysts/abscesses History of Any Multi-Drug Resistant Organisms: MRSA Date of last positivie culture/infection: 07/26/21 MDRO Source:: Right Testicle Past Surgical History: No Surgical Hx Reported, Cholecystectomy, Orthopedic Surgery Additional Past Surgical History / Comment(s): I&D testicle, R tib/fib fracture repair with hardware. Past Anesthesia/Blood Transfusion Reactions: No Reported Reaction Past Psychological History: ADD/ADHD, Anxiety, Depression Smoking Status: Current every day smoker - Past Family History Mother Family Medical History: Cancer Additional Family Medical History / Comment(s): cervical cancer Father Family Medical History: Cancer Additional Family Medical History / Comment(s): Father in 1997 from lung and liver cancer General Exam Limitations: no limitations General appearance: alert, appears intoxicated Head exam: Present: atraumatic, normocephalic Eye exam: Present: PERRL ENT exam: Present: normal exam Neck exam: Present: normal inspection Respiratory exam: Present: normal lung sounds bilaterally. Absent: respiratory distress, wheezes, rales, rhonchi, stridor Cardiovascular Exam: Present: regular rate, normal rhythm, normal heart sounds. Absent: systolic murmur, diastolic murmur, rubs, gallop, clicks GI/Abdominal exam: Present: soft. Absent: distended, tenderness Extremities exam: Present: normal inspection. Absent: pedal edema, joint swelling Neurological exam: Present: alert Psychiatric exam: Present: other (intoxicated) Skin exam: Present: warm, dry, intact, normal color. Absent: rash Course Vital Signs 06/01/22 06/01/22 20:50 22:31 Temperature 97 F L Pulse Rate 100 Respiratory 16 Rate Blood Pressure 191/108 172/90 Medical Decision Making - Medical Decision Making Patient actively vomiting secondary to alcohol intoxication; will give IV Zofran along with gentle hydration. Will avoid fast fluid bolus as he is currently hypertensive. Will give Lopressor IV as he was prescribed Lopressor and losartan on discharge yesterday. No indication for repeat EKG diagnostic imaging or labs with the exception of obtaining an alcohol and drug screen. Position vomiting improved with IV fluids and Zofran. Blood pressure improved with Lopressor IV. Will give home medication of losartan by mouth. Will give bland diet at this time and monitor for further nausea. Unable to obtain serum alcohol level. Breath alcohol concentration 0.082. Will repeat blood alcohol concentration if level less than 0.08 and blood pressure continues to be well controlled will plan for discharge. Repeat breath alcohol level 0.071. Tolerating oral intake well. Blood pressure elevated but stable. Will discharge home with follow-up with primary care provider and pecan picker of newly prescribed blood pressure medications. Case discussed with Dr. Zapata - Lab Data Lab Results 06/01/22 Range/Units 22:20 Urine Opiates Screen Not Detected (NotDetected) Ur Oxycodone Screen Not Detected (NotDetected) Urine Methadone Screen Not Detected (NotDetected) Ur Propoxyphene Screen Not Detected (NotDetected) Ur Barbiturates Screen Not Detected (NotDetected) U Tricyclic Antidepress Not Detected (NotDetected) Ur Phencyclidine Scrn Not Detected (NotDetected) Ur Amphetamines Screen Not Detected (NotDetected) U Methamphetamines Scrn Not Detected (NotDetected) U Benzodiazepines Scrn Not Detected (NotDetected) Urine Cocaine Screen Not Detected (NotDetected) U Marijuana (THC) Screen Not Detected (NotDetected) Disposition Clinical Impression: Hypertension, Alcohol consumption binge drinking Disposition: HOME SELF-CARE Condition: Stable Instructions (If sedation given, give patient instructions): Hypertension (ED), Abuse of Alcohol (ED) Additional Instructions: Please obtained her blood pressure medications in the morning and take as prescribed. Please abstain from alcohol and drug use. Please follow-up with your primary care provider. Continue to drink fluids including water and electrolyte replacing drinks such as Gatorade. Please return to the Emergency Department if symptoms worsen or any other concerns. Is patient prescribed a controlled substance at d/c from ED?: No Referrals: None,Stated [Primary Care Provider] - 1-2 days Time of Disposition: 23:26
[2022-06-01] MEDS ORDERED: LOSARTAN 50 MG TAB PO STA (22:22)
[2022-06-01 22:56] LABS: Amphetamine Screen,Urine Not Detected (NotDetected); Barbiturate Screen,Urine Not Detected (NotDetected); Benzodiazepines Screen,Urine Not Detected (NotDetected); Cocaine Screen,Urine Not Detected (NotDetected); Methadone Screen, Urine Not Detected (NotDetected); Opiate Screen,Urine Not Detected (NotDetected); Oxycodone Screen, Urine Not Detected (NotDetected); Phencyclidine Screen,Urine Not Detected (NotDetected); Tricyclic Antidepressant,Urine Not Detected (NotDetected); Urn Cannabinoid Scrn Not Detected (NotDetected)
[2022-06-02 00:04] VITALS: BP 101/66; PULSE 90
== END 2022-06-02 00:04 | disposition home or self-care (01) ==
LOC: EC 20:43
DX: I10 Essential (primary) hypertension (principal); F10.10 Alcohol abuse, uncomplicated; F17.200 Nicotine dependence, unspecified, uncomplicated; Z59.00 Homelessness unspecified
CPT/HCPCS: 80306; 99283; 96374; 96375; 96361; J2405

== ENCOUNTER 2022-09-15 01:51 | Inpatient (IN) | payer MEDICAID, OTHER ==
--- NOTE | 2022-09-15 02:04 | ED ---
Psych HPI - General Chief Complaint: Psychiatric Symptoms Stated Complaint: Mental health Time Seen by Provider: 09/15/22 02:03 Source: patient, RN notes reviewed, old records reviewed Mode of arrival: ambulatory Limitations: no limitations - History of Present Illness Initial Comments: This is a 37-year-old male who was recently depressed. Patient comes in today for evaluation of sadness, depression, recent weight homeless, patient sleeping outside not sleeping. Patient is well-known to our emergency department. History of polysubstance abuse MD Complaint: suicidal ideation, feels depressed -: days(s) Associated Psychiatric Symptoms: depression, suicidal ideation, racing thoughts Quality: constant Improves With: none, medication Context: significant life stressor Associated Symptoms: denies other symptoms Treatments Prior to Arrival: placed on mental health hold If Self Harm: admits thoughts of self harm - Related Data Previous Rx's Medication Instructions Recorded Aspirin 81 mg PO DAILY #30 tab 05/31/22 Losartan [Cozaar] 50 mg PO DAILY #30 tab 05/31/22 Metoprolol Tartrate [Lopressor] 25 mg PO BID #60 tab 05/31/22 Allergies Allergy/AdvReac Type Severity Reaction Status Date / Time No Known Allergies Allergy Verified 09/15/22 02:01 Review of Systems ROS Statement: Those systems with pertinent positive or pertinent negative responses have been documented in the HPI. ROS Other: All systems not noted in ROS Statement are negative. Past Medical History Past Medical History: Hypertension Additional Past Medical History / Comment(s): Migraines, L lower extremity cellulitis/sepsis, pilonidal cysts/abscesses History of Any Multi-Drug Resistant Organisms: MRSA Date of last positivie culture/infection: 07/26/21 MDRO Source:: Right Testicle Past Surgical History: No Surgical Hx Reported, Cholecystectomy, Orthopedic Surgery Additional Past Surgical History / Comment(s): I&D testicle, R tib/fib fracture repair with hardware. Past Anesthesia/Blood Transfusion Reactions: No Reported Reaction Past Psychological History: ADD/ADHD, Anxiety, Depression Smoking Status: Current every day smoker Past Alcohol Use History: None Reported Past Drug Use History: Cocaine, Marijuana, Methamphetamine, Opiates - Past Family History Mother Family Medical History: Cancer Additional Family Medical History / Comment(s): cervical cancer Father Family Medical History: Cancer Additional Family Medical History / Comment(s): Father in 1997 from lung and liver cancer General Exam Limitations: no limitations General appearance: alert, in no apparent distress Head exam: Present: atraumatic, normocephalic, normal inspection Eye exam: Present: normal appearance, PERRL, EOMI. Absent: scleral icterus, conjunctival injection, periorbital swelling ENT exam: Present: normal exam, mucous membranes moist Neck exam: Present: normal inspection. Absent: tenderness, meningismus, lymphadenopathy Respiratory exam: Present: normal lung sounds bilaterally. Absent: respiratory distress, wheezes, rales, rhonchi, stridor Cardiovascular Exam: Present: regular rate, normal rhythm, normal heart sounds. Absent: systolic murmur, diastolic murmur, rubs, gallop, clicks GI/Abdominal exam: Present: soft, normal bowel sounds. Absent: distended, tenderness, guarding, rebound, rigid Extremities exam: Present: normal inspection, full ROM, normal capillary refill. Absent: tenderness, pedal edema, joint swelling, calf tenderness Back exam: Present: normal inspection Neurological exam: Present: alert, oriented X3, CN II-XII intact Psychiatric exam: Present: normal affect, normal mood Skin exam: Present: warm, dry, intact, normal color. Absent: rash Course Vital Signs 09/15/22 01:59 Temperature 98.5 F Pulse Rate 97 Respiratory 18 Rate Blood Pressure 228/137 O2 Sat by Pulse 100 Oximetry - Reevaluation(s) Reevaluation #1: 09/15/22 04:43 Medical record is reviewed 09/15/22 04:43 Medical clear for psychiatric evaluation Medical Decision Making - Medical Decision Making 37 male to the emergency department for evaluation patient be admitted for psychiatric evaluation and treatment Disposition Clinical Impression: Depression, Suicidal ideation, Psychosis Disposition: TRANSFER TO PSYCH HOSP/UNIT Condition: Fair Is patient prescribed a controlled substance at d/c from ED?: No Referrals: None,Stated [Primary Care Provider] - 1-2 days Time of Disposition: 04:45
[2022-09-15 05:01] LABS: Basophils # (A) 0.1 k/uL (0-0.2); Basophils % (A) 1 %; Eosinophils # (A) 0.2 k/uL (0-0.7); Eosinophils % (A) 3 %; HCT 41.9 % (39.0-53.0); HGB 14.5 gm/dL (13.0-17.5); Lymphocytes # (A) 1.6 k/uL (1.0-4.8); Lymphocytes % (A) 21 %; MCH 31.8 pg (25.0-35.0); MCHC 34.6 g/dL (31.0-37.0); MCV 91.9 fL (80.0-100.0); Mean Platelet Volume 8.2; Monocytes # (A) 0.5 k/uL (0-1.0); Monocytes % (A) 7 %; Neutrophils % (A) 66 %; Platelet Count 198 k/uL (150-450); RBC 4.55 m/uL (4.30-5.90); RDW 13.4 % (11.5-15.5); WBC 7.5 k/uL (3.8-10.6)
[2022-09-15 05:09] LABS: ALT 95 U/L (4-49); AST 68 U/L (17-59); African American GFR (CKD) >90 (>60 ml/min/1.73 sqM); Albumin 3.4 g/dL (3.5-5.0); Alkaline Phosphatase 127 U/L (38-126); Anion Gap 9 mmol/L; Blood Urea Nitrogen 14 mg/dL (9-20); Calcium 8.4 mg/dL (8.4-10.2); Carbon Dioxide 24 mmol/L (22-30); Chloride 105 mmol/L (98-107); Glucose 104 mg/dL (74-99); Non-African American GFR(CKD) >90 (>60 ml/min/1.73 sqM); Sodium 138 mmol/L (137-145); Total Bilirubin 0.4 mg/dL (0.2-1.3); Total Protein 6.6 g/dL (6.3-8.2)
[2022-09-15] MEDS ORDERED: cloNIDine HCL 0.2 MG TAB PO STA (06:37)
[2022-09-15] MEDS ORDERED: METOPROLOL TARTRATE 50 MG TAB PO STA ×2 (06:37→13:03)
[2022-09-15] MEDS ORDERED: LOSARTAN 50 MG TAB PO STA (06:37)
[2022-09-15] MEDS ORDERED: LORazepam 2 MG/ML INJ IM STA (11:20)
[2022-09-15] MEDS ORDERED: HALOPERIDOL LACTATE 5 MG/ML 1 ML VIAL IM PRN (17:51)
[2022-09-15] MEDS ORDERED: MAG HYDROX/AL HYDROX/SIMETH 30 ML CUP PO PRN (17:51)
[2022-09-15] MEDS ORDERED: MAGNESIUM HYDROXIDE 2,400 MG/10 ML CUP PO PRN (17:51)
[2022-09-15] MEDS ORDERED: LORazepam 1 MG/0.5 ML VIAL IM PRN (17:55)
[2022-09-15] MEDS ORDERED: haloperidoL 5 MG TAB PO PRN (17:55)
[2022-09-16] MEDS: ACETAMINOPHEN TAB 325 MG TAB PO PRN ×3 (08:52→20:11)
[2022-09-16] MEDS: NICOTINE 14MG/24HR PATCH TRANSDERM SCH (08:52)
--- NOTE | 2022-09-16 10:45 | P.HP ---
Psychiatric H&P - . H&P Date: 09/16/22 History & Physical: Allergies Allergy/AdvReac Type Severity Reaction Status Date / Time No Known Allergies Allergy Verified 09/15/22 15:11 Vital Signs Temp 97.9 F 09/16/22 06:23 Pulse 78 09/16/22 06:23 Resp 16 09/16/22 06:23 BP 163/93 09/16/22 06:23 Pulse Ox 95 09/16/22 06:23 FiO2 Intake & Output 09/15/22 09/16/22 09/16/22 18:59 06:59 18:59 Weight 74.191 kg 74.191 kg Laboratory Last Values WBC 7.5 k/uL (3.8-10.6) 09/15/22 04:53 RBC 4.55 m/uL (4.30-5.90) 09/15/22 04:53 Hgb 14.5 gm/dL (13.0-17.5) 09/15/22 04:53 Hct 41.9 % (39.0-53.0) 09/15/22 04:53 MCV 91.9 fL (80.0-100.0) 09/15/22 04:53 MCH 31.8 pg (25.0-35.0) 09/15/22 04:53 MCHC 34.6 g/dL (31.0-37.0) 09/15/22 04:53 RDW 13.4 % (11.5-15.5) 09/15/22 04:53 Plt Count 198 k/uL (150-450) 09/15/22 04:53 MPV 8.2 09/15/22 04:53 Neutrophils % 66 % 09/15/22 04:53 Lymphocytes % 21 % 09/15/22 04:53 Monocytes % 7 % 09/15/22 04:53 Eosinophils % 3 % 09/15/22 04:53 Basophils % 1 % 09/15/22 04:53 Neutrophils # 5.0 k/uL (1.3-7.7) 09/15/22 04:53 Lymphocytes # 1.6 k/uL (1.0-4.8) 09/15/22 04:53 Monocytes # 0.5 k/uL (0-1.0) 09/15/22 04:53 Eosinophils # 0.2 k/uL (0-0.7) 09/15/22 04:53 Basophils # 0.1 k/uL (0-0.2) 09/15/22 04:53 Sodium 138 mmol/L (137-145) 09/15/22 04:53 Potassium 4.0 mmol/L (3.5-5.1) 09/15/22 04:53 Chloride 105 mmol/L (98-107) 09/15/22 04:53 Carbon Dioxide 24 mmol/L (22-30) 09/15/22 04:53 Anion 9 mmol/L 09/15/22 04:53 BUN 14 mg/dL (9-20) 09/15/22 04:53 Creatinine 0.86 mg/dL (0.66-1.25) 09/15/22 04:53 Est GFR (CKD-EPI)AfAm >90 (>60 ml/min/1.73 sqM) 09/15/22 04:53 Est GFR (CKD-EPI)NonAf >90 (>60 ml/min/1.73 sqM) 09/15/22 04:53 Glucose 104 mg/dL (74-99) H 09/15/22 04:53 Calcium 8.4 mg/dL (8.4-10.2) 09/15/22 04:53 Total Bilirubin 0.4 mg/dL (0.2-1.3) 09/15/22 04:53 AST 68 U/L (17-59) H 09/15/22 04:53 ALT 95 U/L (4-49) H 09/15/22 04:53 Alkaline Phosphatase 127 U/L (38-126) H 09/15/22 04:53 Total Protein 6.6 g/dL (6.3-8.2) 09/15/22 04:53 Albumin 3.4 g/dL (3.5-5.0) L 09/15/22 04:53 Coronavirus (PCR) Not Detected (Not Detectd) 09/15/22 04:48 09/16/22 10:33 This is a 37-year-old male who was recently depressed. Patient comes in today for evaluation of sadness, depression, recent weight loss, being homeless, patient is sleeping outside and is not sleeping. Racing thoughts Patient is well-known to our emergency department. History of polysubstance abuse. Chief Complaint: suicidal ideation, feels depressed also filled with paranoid and psychotic symptoms History: The patient has been in and out of the hospital with psychosis and polysubstance abuse. He has been living with his mother in a trailer with his uncle a dog in a few cats. He is struggling with D personalization. He believes that someone has possessed his mother and that that is her body but it is not his mother and someone is possessed his uncle and that's is on close body but is not his uncle. He is terrified and desperate to find out how to get his mother back and save her from this position. He constantly hears voices are outside in the room and they're putting him down and calling him names they do not tell him what to do they do not threaten him. He believes that they are people who are desperate to be seen and he is able to see them he says, "it is a gift." Sometimes she smells people in his room. He tells them to leave him alone he says the main thing they wanted know is where they are at and he has no idea where they are at. Sometimes it drives him to the end of himself and he begins agitated yelling and throwing and breaking things. He also turns to drugs to make the voices shut up. Former medicine is a little hard to elucidate as he has a very bad memory he says that he is on disability because he can't read and spell and his memory is poor. What he recalls is that at one point he took Remeron when he was in prison and it did help him sleep but he only took it one. He also has tried trazodone for sleep which gave him severe restless leg. He really liked Wellbutrin when he took that. He said he was given some medicine it was Y8 he does not remember the name and it made him aggressive and homicidal. Current symptoms: He does have some depression and anxiety and in our unit he feels that he experienced this place and these people and their names before even came in and wanted know what the name of that was agreed that dj vu fit what he is experiencing. Social history: The patient is only child born to his parents and his dad took off before he was born and was in and out of this life he does not know if that has any mental illness or is even alive or not. His mother is struggling with, "chemo brain". As she is being treated for cancer she had an unstable life there was one man that was in the patient's life from earth to 39 who he considers his father decent man but mom would leave that man and have children with other men never had any kids with that man. When she had 2 children with another man 2 boys with another man who are both currently in prison for "doing something stupid". (It sounds that mother was quite unstable) The patient says he was a preemie and was sickly as a child. 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 Substance use: he says he has been sober from alcohol for years but then he used heroin for a long time even using it is a shot, he started it all with Musella, moved on to heroin he eventually graduated to methamphetamine has uses that for about 3 years and stopped it 2 weeks ago when his mom begged him to. Diagnosis: Paranoid schizophrenia Polysubstance abuse most recently methamphetamine. Of course this can cause psychosis but he has been offered 2 weeks and still having paranoid psychotic symptoms. Plan trial of Zyprexa at night for sleep anxiety racing thoughts and paranoia. I'll start with 10 mg tonight and talk to him tomorrow
[2022-09-16] MEDS: LORazepam 1 MG TAB PO PRN ×2 (10:57→18:25)
[2022-09-16 12:49] LABS: ALT 123 U/L (4-49); AST 112 U/L (17-59); African American GFR (CKD) >90 (>60 ml/min/1.73 sqM); Albumin 4.2 g/dL (3.5-5.0); Alkaline Phosphatase 114 U/L (38-126); Anion Gap 12 mmol/L; Blood Urea Nitrogen 22 mg/dL (9-20); Calcium 8.9 mg/dL (8.4-10.2); Carbon Dioxide 25 mmol/L (22-30); Chloride 102 mmol/L (98-107); Glucose 113 mg/dL (74-99); Non-African American GFR(CKD) 80 (>60 ml/min/1.73 sqM); Sodium 139 mmol/L (137-145); Total Bilirubin 0.9 mg/dL (0.2-1.3); Total Protein 7.7 g/dL (6.3-8.2)
[2022-09-16 13:10] LABS: Basophils # (A) 0.1 k/uL (0-0.2); Basophils % (A) 1 %; Eosinophils # (A) 0.1 k/uL (0-0.7); Eosinophils % (A) 2 %; HCT 46.7 % (39.0-53.0); Lymphocytes # (A) 1.4 k/uL (1.0-4.8); Lymphocytes % (A) 18 %; MCH 32.6 pg (25.0-35.0); MCHC 34.2 g/dL (31.0-37.0); MCV 95.5 fL (80.0-100.0); Monocytes # (A) 0.5 k/uL (0-1.0); Monocytes % (A) 7 %; Neutrophils # (A) 5.6 k/uL (1.3-7.7); Neutrophils % (A) 71 %; Platelet Count 171 k/uL (150-450); RBC 4.89 m/uL (4.30-5.90); RDW 13.3 % (11.5-15.5); WBC 7.9 k/uL (3.8-10.6)
[2022-09-16] MEDS ORDERED: carvediloL 12.5 MG TAB ONE (13:18)
[2022-09-16] MEDS: lisinopriL 10 MG TAB PO SCH (13:38)
[2022-09-16] MEDS: carvediloL 12.5 MG TAB PO SCH ×2 (13:39→16:41)
--- NOTE | 2022-09-16 16:25 | P.HPMEDMHU ---
History of Present Illness H&P Date: 09/16/22 Patient is a 37-year-old male with a history of hypertension on lisinopril at home, recent methamphetamine use, and tobacco abuse who presented to the mental health unit. Patient seen and examined at bedside. Today he reports that he had an episode where he got diaphoretic, lightheaded, and dizzy. Nursing checks his capillary blood glucose was down to 63. He drinks she is thinking of 83. He reports no prior history of any hypoglycemic episodes. He is not a diabetic. He reports that he was using methamphetamines heavily up until about 3 weeks ago when he stopped. He denies any alcohol abuse. He also reports some chronic neck pain and headache. He reports a family history of cancer and he is concerned it might be best. This has been going on for approximately 2-3 years. We discussed that he should follow-up with her primary care physician for further evaluation. He also reports that he has had high blood pressure for quite some time. He typically takes lisinopril at home but states his blood pressure still running high. Pertinent positives and negatives as discussed in HPI, a complete review of systems was performed and all other systems are negative. Vital signs reviewed General: nontoxic, no distress, appears at stated age Derm: warm, dry Head: atraumatic, normocephalic, symmetric Eyes: EOMI, no lid lag, anicteric sclera, pupils equal round reactive to light ENT: Nose and ears atraumatic, no thrush, no pharyngeal erythema Neck: No thyromegaly, no cervical lymphadenopathy, trachea midline, supple Mouth: no lip lesion, mucus membranes moist Cardiovascular: S1S2 reg, no murmur, positive posterior tibial pulse bilateral, no edema, capillary refill less than 2 seconds Lungs: clear to auscultation bilateral, no rhonchi, no rales, no wheeze, no accessory muscle use Abdominal: soft, nontender to palpation, no guarding, no appreciable organo megaly, normal bowel sounds Ext: no gross muscle atrophy, muscle strength 5 out of 5 in all 4 extremities, no contractures Neuro: CN II-XII grossly intact, light touch intact all 4 extremities, finger to nose within normal limits, Psych: Alert, oriented, appropriate affect Assessment/Plan: Hypertension, accelerated -Resume patient's home lisinopril. Coreg was added -Follow blood pressures -Check urinalysis Hypoglycemia -Continue to monitor -Await A1c Tobacco abuse -Cessation -Nicotine replacement Chronic neck pain - establish PCP, Dr. Zee name left on chart, outpatient follow-up Transaminitis - Undetermined etiology. -We'll recheck on 09/16. If remains elevated would benefit from outpatient evaluation with primary care physician for possible hepatitis. Thank you for allowing us to participate in the care of this pleasant patient. Do not hesitate to contact us with questions. Someone can be reached from the [facility] hospitalist group all hours of the day at [phone] or via [place]. Past Medical History Past Medical History: Hypertension Additional Past Medical History / Comment(s): Migraines, L lower extremity cellulitis/sepsis, pilonidal cysts/abscesses. History of Any Multi-Drug Resistant Organisms: None Reported, MRSA Date of last positivie culture/infection: 07/26/21 MDRO Source:: Right Testicle Past Surgical History: No Surgical Hx Reported, Cholecystectomy, Orthopedic Surgery Additional Past Surgical History / Comment(s): I&D testicle, R tib/fib fracture repair with hardware. Past Anesthesia/Blood Transfusion Reactions: No Reported Reaction Past Psychological History: ADD/ADHD, Anxiety, Depression Additional Psychological History / Comment(s): Pt refuses to answer. Smoking Status: Current every day smoker Past Alcohol Use History: None Reported Additional Past Alcohol Use History / Comment(s): Pt started smoking in 1996 and is a ppd smoker, Pt vapes all day and smokes a 1/2 pack a day. Past Drug Use History: Cocaine, Marijuana, Methamphetamine, Opiates Additional Drug Use History / Comment(s): Pt states he no longer uses any drugs. - Past Family History Mother Family Medical History: Cancer Additional Family Medical History / Comment(s): cervical cancer Father Family Medical History: Cancer Additional Family Medical History / Comment(s): Father in 1997 from lung and liver cancer Medications and Allergies Home Medications Medication Instructions Recorded Confirmed Type No Known Home Medications 09/15/22 09/15/22 History Allergies Allergy/AdvReac Type Severity Reaction Status Date / Time No Known Allergies Allergy Verified 09/15/22 15:11 Physical Exam Osteopathic Statement: *. No significant issues noted on an osteopathic structural exam other than those noted in the History and Physical/Consult. Vitals: Vital Signs Temp Pulse Pulse Resp BP BP Pulse Ox 09/16/22 15:47 72 20 171/101 09/16/22 11:30 65 H 163/101 09/16/22 11:05 98 20 206/98 09/16/22 06:23 97.9 F 78 16 163/93 95 09/15/22 18:50 97.1 F L 65 16 150/93 09/15/22 17:59 61 18 142/80 98 Intake and Output 09/16/22 09/16/22 09/16/22 06:59 14:59 22:59 Other: Weight 74.191 kg Cranial Nerve Examination - Cranial Nerves Cranial Nerve II- Optic: Intact Cranial Nerve III- Oculomotor: Intact Cranial Nerve IV- Trochlear: Intact Cranial Nerve V- Trigeminal: Intact Cranial Nerve - Abducens: Intact Cranial Nerve VII- Facial: Intact Cranial Nerve VIII- Auditory: Intact Cranial Nerve IX- Glossopharyngeal: Intact Cranial Nerve X- Vagus: Intact Cranial Nerve XI- Accessory: Intact Cranial Nerve XII- Hypoglossal: Intact Results CBC & Chem 7: 09/16/22 11:27 09/16/22 11:27 Labs: Abnormal Lab Results - Last 24 Hours (Table) 09/16/22 Range/Units 11:27 BUN 22 H (9-20) mg/dL Glucose 113 H (74-99) mg/dL AST 112 H (17-59) U/L ALT 123 H (4-49) U/L Thrombosis Risk Factor Assmnt - Choose All That Apply Any of the Below Risk Factors Present?: No Other Risk Factors: No Other congenital or acquired thrombophilia - If yes, enter type in comment: No Thrombosis Risk Factor Assessment Level: Very Low Risk
[2022-09-16] MEDS ORDERED: OLANZapine 10 MG TAB PO SCH (21:00)
[2022-09-17 00:06] LABS: Chol/HDL Ratio 1.82 Ratio; LDL Cholesterol,Calculated 50.7 mg/dL (0.0-131.0); VLDL Calculation 17.28 mg/dL (5.00-40.00)
--- NOTE | 2022-09-17 08:24 | P.PN ---
Subjective Progress Note Date: 09/17/22 Principal diagnosis: Paranoid schizophrenia Polysubstance disorder Subjective: The patient said that the Zyprexa made him feel sleepy but he gave him severe restless leg he had to get up and go take a shower and walk around to try to calm it down. He says he has tried some Seroquel in the past did not give him restless leg but made him sleepy have the next day. Abilify also caused akathisia. He has never tried Geodon which is low on restless leg and usually does not cause lethargy during the day. He says he is willing to give that a try. Objective: he came readily, reasonable self-care, good eye contact, clear description of his experience, oriented to person place time and circumstances, gait and station are normal, no aggression, no evidence of responding to voices, Assessment did not tolerate the Zyprexa need something for psychosis that he can tolerate. Plan trial of Geodon 60 mg at supper tonight and 60 mg at supper and bedtime tomorrow he understands that he needs to take that with food. Objective - Vital Signs Vital signs: Vital Signs Temp 97.7 F 09/17/22 07:05 Pulse 55 L 09/17/22 07:05 Resp 20 09/17/22 07:05 BP 131/68 09/17/22 07:05 Pulse Ox 95 09/16/22 06:23 FiO2 Intake & Output 09/16/22 09/17/22 09/17/22 18:59 06:59 18:59 Weight 74.191 kg - Labs CBC & Chem 7: 09/16/22 11:27 09/16/22 11:27 Labs: Abnormal Lab Results - Last 24 Hours (Table) 09/16/22 Range/Units 11:27 BUN 22 H (9-20) mg/dL Glucose 113 H (74-99) mg/dL AST 112 H (17-59) U/L ALT 123 H (4-49) U/L HDL Cholesterol 83.00 H (40.00-60.00) mg/dL
[2022-09-17] MEDS: carvediloL 12.5 MG TAB PO SCH ×2 (08:27→18:05)
[2022-09-17] MEDS: NICOTINE 14MG/24HR PATCH TRANSDERM SCH (08:27)
[2022-09-17] MEDS: lisinopriL 10 MG TAB PO SCH (08:27)
[2022-09-17] MEDS: LORazepam 1 MG TAB PO PRN (13:19)
[2022-09-17] MEDS: IBUPROFEN 800 MG TAB PO PRN (17:38)
[2022-09-17] MEDS ORDERED: ZIPRASIDONE 60 MG CAP PO SCH (18:00)
[2022-09-18 06:47] VITALS: PULSE 65
[2022-09-18 07:17] LABS: Albumin 3.5 g/dL (3.5-5.0); Calcium 8.7 mg/dL (8.4-10.2); Total Bilirubin 0.5 mg/dL (0.2-1.3); Total Protein 6.6 g/dL (6.3-8.2)
[2022-09-18] MEDS: lisinopriL 10 MG TAB PO SCH (08:31)
[2022-09-18] MEDS: ACETAMINOPHEN TAB 325 MG TAB PO PRN ×3 (08:31→20:54)
[2022-09-18] MEDS: carvediloL 12.5 MG TAB PO SCH ×2 (08:32→17:14)
[2022-09-18] MEDS: NICOTINE 14MG/24HR PATCH TRANSDERM SCH ×2 (08:32→11:19)
[2022-09-18 08:58] LABS: Glucose,Whole Blood 63 mg/dL (70-110)
[2022-09-18 08:58] LABS: Glucose,Whole Blood 138 mg/dL (70-110)
[2022-09-18] MEDS: IBUPROFEN 800 MG TAB PO PRN ×2 (09:10→17:14)
--- NOTE | 2022-09-18 11:18 | P.PN ---
Progress Note - Text Progress Note Date: 09/18/22 Interval History: Patient was seen in group and was directable and agreeable to speak with group underwriter in the office., The patient is not reporting any suicidal or homicidal ideation, intention, and/or plan. He is not reporting any auditory or visual hallucinations. Denies any paranoia or other delusions at this time. The patient reports that he came to the hospital because he had an argument with his mother and was sleeping in the garage. He states that he felt very cold and then became suicidal and decided to come to the hospital. He does remain future and goal oriented stating that he will be receiving income early next month so that hewould be able to afford a motel in the meantime. He has been adherent to his medications but reports mild sedation as a side effect. Mental Status Exam: General Appearance: Patient appears to be stated age is alert, directable, and cooperative. Behavior: Patient is calmly seated without any agitated behavior. Speech: Patient's speech is fluent and nonpressured. Mood/Affect: Mood is improving mildly, affect is congruent and constricted. Suicidality/Homicidality: Patient denies having any suicidal or homicidal ideation intent or plan. Perceptions: Patient denies any visual hallucinations and denies any auditory hallucinations Though content/process: There is no evidence of any delusional thought content and thought process is linear and goal-directed. Memory and concentration: AOX3, grossly intact for the purposes of this session Judgment and insight: Improving mildly Vital Signs Temp 97.6 F 09/18/22 06:31 Pulse 65 09/18/22 06:31 Resp 16 09/18/22 06:31 BP 110/63 09/18/22 06:31 Pulse Ox 97 09/18/22 06:31 FiO2 Intake & Output 09/17/22 09/18/22 09/18/22 18:59 06:59 18:59 Weight 74.6 kg Laboratory Results - Last 24 Hours 09/16/22 09/16/22 09/18/22 10:57 11:21 06:42 Sodium 137 Potassium 5.0 Chloride 104 Carbon Dioxide 26 Anion Gap 7 BUN 23 H Creatinine 1.26 H Est GFR (CKD-EPI)AfAm 84 Est GFR (CKD-EPI)NonAf 73 Glucose 90 POC Glucose (mg/dL) 63 L 138 H POC Glu Oncology Nurse ID Marcia Raines Ellie Calcium 8.7 Total Bilirubin 0.5 AST 99 H ALT 120 H Alkaline Phosphatase 101 Total Protein 6.6 Albumin 3.5 Assessment Acute psychosis, likely secondary to methamphetamine use Methamphetamine use disorder Plan: -Patient continues to meet criteria for inpatient psychiatric admission for symptom stabilization and safety. Patient has signed adult voluntary form and medication consent and was placed in patient's chart. -Medications: Decrease Geodon to 40 mg by mouth twice a day with meals for acute psychosis When ncessary Ativan and Geodon for agitation/aggression. -NRT - nicotine patch -SW on board for discharge planning. Encouraged the patient to participate in milieu.
[2022-09-18] MEDS: ZIPRASIDONE 40 MG CAP PO SCH (17:16)
[2022-09-18] MEDS ORDERED: ZIPRASIDONE 60 MG CAP PO SCH (21:00)
[2022-09-18] MEDS: NICOTINE GUM (POLACRILEX) 2 MG GUM BUCCAL PRN (21:14)
[2022-09-19 05:57] VITALS: BP 141/79; RESP 17; TEMP 97.8
[2022-09-19] MEDS: ACETAMINOPHEN TAB 325 MG TAB PO PRN (06:52)
[2022-09-19] MEDS: carvediloL 12.5 MG TAB PO SCH (08:03)
[2022-09-19] MEDS: NICOTINE GUM (POLACRILEX) 2 MG GUM BUCCAL PRN (08:03)
[2022-09-19] MEDS: NICOTINE 14MG/24HR PATCH TRANSDERM SCH (08:03)
[2022-09-19] MEDS: lisinopriL 10 MG TAB PO SCH (08:03)
[2022-09-19] MEDS: ZIPRASIDONE 40 MG CAP PO SCH (08:04)
--- NOTE | 2022-09-19 11:24 | P.DS ---
Providers Date of admission: 09/15/22 17:13 Expected date of discharge: 09/19/22 Attending physician: Darian Farah MD Consults: 09/15/22 17:51 Consult Physician Routine Consulting Provider: Gayle Physician Consult Reason/Comments: medical management Do you want consulting provider notified?: Yes Primary care physician: Stated None - Discharge Diagnosis(es) (1) Acute psychosis Current Visit: Yes Status: Acute Priority: High (2) Methamphetamine use disorder, severe Current Visit: Yes Status: Chronic Priority: Medium Hospital Course: Admission HPI: Initial psychiatric evaluation was complete by Dr. Marcelo on 09/16/2022 who wrote: "This is a 37-year-old male who was recently depressed. Patient comes in today for evaluation of sadness, depression, recent weight loss, being homeless, patient is sleeping outside and is not sleeping. Racing thoughts Patient is well-known to our emergency department. History of polysubstance abuse. Chief Complaint: suicidal ideation, feels depressed also filled with paranoid and psychotic symptoms History: The patient has been in and out of the hospital with psychosis and poly substance abuse. He has been living with his mother in a trailer with his uncle a dog in a few cats. He is struggling with D personalization. He believes that someone has possessed his mother and that that is her body but it is not his mother and someone is possessed his uncle and that's is on close body but is not his uncle. He is terrified and desperate to find out how to get his mother back and save her from this position. He constantly hears voices are outside in the room and they're putting him down and calling him names they do not tell him what to do they do not threaten him. He believes that they are people who are desperate to be seen and he is able to see them he says, "it is a gift." Sometimes she smells people in his room. He tells them to leave him alone he says the main thing they wanted know is where they are at and he has no idea where they are at. Sometimes it drives him to the end of himself and he begins agitated yelling and throwing and breaking things. He also turns to drugs to make the voices shut up. Former medicine is a little hard to elucidate as he has a very bad memory he says that he is on disability because he can't read and spell and his memory is poor. What he recalls is that at one point he took Remeron when he was in detention and it did help him sleep but he only took it one. He also has tried trazodone for sleep which gave him severe restless leg. He really liked Wellbutrin when he took that. He said he was given some medicine it was Y8 he does not remember the name and it made him aggressive and homicidal. Current symptoms: He does have some depression and anxiety and in our unit he feels that he experienced this place and these people and their names before even came in and wanted know what the name of that was agreed that tangela petersen fit what he is experiencing." Hospital course: Upon admission to the unit patient was initially presenting with depression and anxiety. Patient was however directable and agreeable to commence treatment. Patient got along well with other patients on the unit and followed unit protocol. Patient was compliant with the medications and denied any side effects throughout hospital course. Patient was started on Geodon for mood stabilization and psychosis. Patient spoke of his stressors and engaged in therapy both group and individual. Patient was also seen by medical team for history and physical exam. Over the course the hospitalization, the patient displayed significant improvement regresses target symptoms of mood lability and psychosis. The patient admitted that it was secondary to methamphetamine abuse. He also reported that he was feeling hopeless and depressed in the context of homelessness. On the day of discharge, the patient is not reporting any suicidal or homicidal ideation, intention, and/or plan. He is not reporting any auditory or visual denying any paranoia or other delusions. He has been adherent with his medication is not reporting any significant side effects at this time. He remains future and goal oriented. He denies any access to firearms or other weapons. He reports that he is receiving Social Security income this month and that he will put this towards housing if necessary. The patient was counseled at length on abstaining from all substances including alcohol, marijuana, and especially methamphetamines. He was counseled on his medications and the need for regular compliance and appropriate outpatient follow-up. Prior to discharge, family meeting was arranged by social media manager to answer any questions and ensure safety. Mental status exam: General Appearance: Patient appears to be stated age is alert, pleasant, and cooperative. Patient is in no acute distress and has fair hygiene and grooming Behavior: Patient is calmly seated without any agitated behavior. Speech: Patient's speech is fluent and nonpressured. Mood/Affect: Patient reports their mood is "much better", affect is congruent and euthymic to bright. Suicidality/Homicidality: Patient denies having any suicidal or homicidal ideation intent or plan. Perceptions: Patient denies any auditory or visual hallucinations. Though content/process: There is no evidence of any delusional thought content and thought process is linear and goal-directed. Patient is future and goal oriented to Memory and concentration: AOX3, grossly intact for the purposes of this session. Can spell "WORLD" backwards correctly. Judgment and insight: Improved with guarded prognosis Impression: Acute psychotic episode Methamphetamine use disorder Plan: -Continue with discharge today as patient has improved and stabilized psychiatrically and is not currently an imminent threat to himself and/or others. Patient will remain at chronically elevated risk due to methamphetamine use. -Continue medications: Geodon 40 mg by mouth twice a day with meals for mood stabilization/psychosis Zestril and Coreg as per medical team. -Patient was counseled on the need for medication compliance and appropriate follow-up at mental health and also primary care for medical issues. Patient verbalized understanding and agreed. -Social work to arrange for and conduct family meeting to ensure safety upon discharge and answer any questions/concerns. Social work also to arrange for patients follow up appointments for psychiatric care along with follow up with primary care provider. -Patient counseled on abstaining from recreational drugs and marijuana and alcohol. Was informed/educated on the adverse effects on their physical and mental health. Patient verbally agreed and understood. Patient was offered substance abuse treatment however declined at this time. -Patient was instructed to return to the hospital or seek immediate medical care if their psychiatric or medical symptoms do worsen or reoccur. -Psychoeducation and supportive therapy provided to patient. Risks and benefits of pharmacological treatment versus the risks and benefits of nontreatment weight and discussed. Informed consent discussion held. Common side effects of psychotropics discussed such as, but not limited to headache, GI disturbance, sexual dysfunction, movement disorders, sedation, and orthostatic hypotension. Life threatening and blackbox warnings of prescribed medications also discussed. Potential risks of operating a vehicle or heavy machinery discussed with patient at length. Advised on importance of compliance and a reliable and responsible manner. Patient advised to review FDA consumer labeling of all medications prior to taking. Patient verbalized understanding of potential risks, and agrees with current treatment plan. Patient advised to medically contact physician/emergency personnel if any acute changes in condition occur. Vital Signs Temp 97.8 F 09/19/22 05:20 Pulse 65 09/19/22 05:20 Resp 17 09/19/22 05:20 BP 141/79 09/19/22 05:20 Pulse Ox 98 09/19/22 05:20 FiO2 Laboratory Results WBC 7.9 k/uL (3.8-10.6) 09/16/22 11: RBC 4.89 m/uL (4.30-5.90) 09/16/22 11: Hgb 16.0 gm/dL (13.0-17.5) 09/16/22 11: Hct 46.7 % (39.0-53.0) 09/16/22 11: MCV 95.5 fL (80.0-100.0) 09/16/22 11: MCH 32.6 pg (25.0-35.0) 09/16/22 11: MCHC 34.2 g/dL (31.0-37.0) 09/16/22 11: RDW 13.3 % (11.5-15.5) 09/16/22 11: Plt Count 171 k/uL (150-450) 09/16/22 11: MPV 9.0 09/16/22 11: Neutrophils % 71 % 09/16/22 11: Lymphocytes % 18 % 09/16/22 11: Monocytes % 7 % 09/16/22 11:27 Eosinophils % 2 % 09/16/22 11: Basophils % 1 % 09/16/22 11: Neutrophils # 5.6 k/uL (1.3-7.7) 09/16/22 11: Lymphocytes # 1.4 k/uL (1.0-4.8) 09/16/22 11: Monocytes # 0.5 k/uL (0-1.0) 09/16/22 11: Eosinophils # 0.1 k/uL (0-0.7) 09/16/22 11: Basophils # 0.1 k/uL (0-0.2) 09/16/22 11:27 Sodium 137 mmol/L (137-145) 09/18/22 06:42 Potassium 5.0 mmol/L (3.5-5.1) 09/18/22 06:42 Chloride 104 mmol/L (98-107) 09/18/22 06:42 Carbon Dioxide 26 mmol/L (22-30) 09/18/22 06:42 Anion Gap 7 mmol/L 09/18/22 06:42 BUN 23 mg/dL (9-20) H 09/18/22 06:42 Creatinine 1.26 mg/dL (0.66-1.25) H 09/18/22 06:42 Est GFR (CKD-EPI)AfAm 84 (>60 ml/min/1.73 sqM) 09/18/22 06:42 Est GFR (CKD-EPI)NonAf 73 (>60 ml/min/1.73 sqM) 09/18/22 06:42 Glucose 90 mg/dL (74-99) 09/18/22 06:42 POC Glucose (mg/dL) 138 mg/dL (70-110) H 09/16/22 11:21 POC Glu Casey Saw Operator ANDREZ Marcia Raines 09/16/22 11:[address] Glu mg/dL 107 09/16/22 11:27 Hemoglobin A1c 5.4 % (0.0-6.0) 09/16/22 11:27 Calcium 8.7 mg/dL (8.4-10.2) 09/18/22 06:42 Total Bilirubin 0.5 mg/dL (0.2-1.3) 09/18/22 06:42 AST 99 U/L (17-59) H 09/18/22 06:42 ALT 120 U/L (4-49) H 09/18/22 06:42 Alkaline Phosphatase 101 U/L (38-126) 09/18/22 06:42 Total Protein 6.6 g/dL (6.3-8.2) 09/18/22 06:42 Albumin 3.5 g/dL (3.5-5.0) 09/18/22 06:42 Triglycerides 86.40 mg/dL (0.00-149.00) 09/16/22 11:27 Cholesterol 151.00 mg/dL (0.00-200.00) 09/16/22 11:27 LDL Cholesterol, Calc 50.7 mg/dL (0.0-131.0) 09/16/22 11:27 VLDL Cholesterol, Calc 17.28 mg/dL (5.00-40.00) 09/16/22 11:27 HDL Cholesterol 83.00 mg/dL (40.00-60.00) H 09/16/22 11:27 Cholesterol/HDL Ratio 1.82 Ratio 09/16/22 11:27 TSH 1.160 mIU/L (0.465-4.680) 09/16/22 11:27 Coronavirus (PCR) Not Detected (Not Detectd) 09/15/22 04:48 Allergies Allergy/AdvReac Type Severity Reaction Status Date / Time No Known Allergies Allergy Verified 09/15/22 15:11 Patient Condition at Discharge: Stable Plan - Discharge Summary Discharge Rx Participant: Yes New Discharge Prescriptions: New carvediloL [Coreg*] 12.5 mg PO BID-W/MEALS 30 Days tab Ziprasidone [Geodon] 40 mg PO AC-BID 30 Days cap lisinopriL [Zestril] 10 mg PO DAILY 30 Days tab Discharge Medication List Ziprasidone [Geodon] 40 mg PO AC-BID 30 Days cap 09/19/22 [Rx] carvediloL [Coreg*] 12.5 mg PO BID-W/MEALS 30 Days tab 09/19/22 [Rx] lisinopriL [Zestril] 10 mg PO DAILY 30 Days tab 09/19/22 [Rx] Follow up Appointment(s)/Referral(s): Darrell Dozier MD [STAFF PHYSICIAN] - 1 Week Patient Instructions/Handouts: How to Stop Smoking (DC), Depression (DC) Activity/Diet/Wound Care/Special Instructions: Avoid the use of street drugs and alcohol. Take all prescriptions as prescribed. When you are in need of refills on your medications, please contact your medical provider and/or outpatient psychiatrist to have this done. Please go to scheduled outpatient appointment for aftercare treatment. If symptoms return or become worse, call the crisis line at and/or go to the nearest emergency room for evaluation. Discharge Disposition: HOME SELF-CARE
== END 2022-09-19 13:35 | disposition home or self-care (01) | DRG 885 ==
LOC: EC 01:51 → 3MHU 17:13
PROVIDERS: ADMIT Psychiatry & Neurology Psychiatry; ATTEND Psychiatry & Neurology Psychiatry
DX: F20.0 Paranoid schizophrenia (principal); R45.851 Suicidal ideations; F15.90 Other stimulant use, unspecified, uncomplicated; F17.200 Nicotine dependence, unspecified, uncomplicated; F32.A Depression, unspecified; G25.81 Restless legs syndrome; I10 Essential (primary) hypertension; Z59.00 Homelessness unspecified; Z79.82 Long term (current) use of aspirin; Z20.822 Contact with and (suspected) exposure to COVID-19
CPT/HCPCS: 36415; 80053; 80061; 82075; 83036; 84443; 85025; 87635; 96372; 99284

== ENCOUNTER 2022-09-21 06:57 | Emergency (ER) | payer OTHER ==
[2022-09-21 07:09] VITALS: BP 147/98; PULSE 125; RESP 16; TEMP 98.7
[2022-09-21] MEDS ORDERED: KETOROLAC 15 MG/ML 1 ML VIAL IM STA (07:52)
[2022-09-21] MEDS ORDERED: SULFAMETHOX-TMP 800-160MG 1 EACH TAB PO STA (07:52)
[2022-09-21] MEDS ORDERED: DEXAMETHASONE SOD PHOSPHATE 10 MG/ML 1 ML VIAL IM STA (07:52)
[2022-09-21] MEDS ORDERED: LIDOCAINE 4% CREAM 5 GM TUBE TOPICAL ONE (08:05)
[2022-09-21] MEDS ORDERED: IBUPROFEN 600 MG STARTER PACK 4 TAB BTL PO STA (08:15)
[2022-09-21] MEDS ORDERED: SULFAMETH-TMP DS STARTER PACK 2 TAB BTL PO STA (08:15)
--- NOTE | 2022-09-21 08:15 | ED ---
Skin/Abscess/FB HPI - General Chief complaint: Skin/Abscess/Foreign Body Stated complaint: Abscess Time Seen by Provider: 09/21/22 07:12 Source: patient, RN notes reviewed Mode of arrival: ambulatory Limitations: no limitations - History of Present Illness Initial comments: This is a 37-year-old male who presents to the emergency department for an abscess to the right buttocks. States that this is been present for the last 3- 4 days and seems to be worsening. The area feels firm and he has not noticed any drainage. Denies any fevers or chills. He is having difficulty sitting due to the pain. Denies any history of cysts or abscesses in the past. Denies any fevers, chills, sore throat, cough, dyspnea, chest pain, palpitations, abdominal pain, nausea, vomiting, diarrhea, back pain, or headaches. MD complaint: abscess/boil Onset/Timin -: days(s) - Related Data Previous Rx's Medication Instructions Recorded Ziprasidone [Geodon] 40 mg PO AC-BID 30 Days cap 09/19/22 carvediloL [Coreg*] 12.5 mg PO BID-W/MEALS 30 Days tab 09/19/22 lisinopriL [Zestril] 10 mg PO DAILY 30 Days tab 09/19/22 Lidocaine [Lidocaine Rectal Cream 1 applic TOPICAL TID PRN #30 gram 09/21/22 5%] Sulfamethox-Tmp 800-160Mg [Bactrim 1 tab PO Q12HR 10 Days #20 tab 09/21/22 DS 800-160 mg] predniSONE 50 mg PO DAILY 5 Days #5 tablet 09/21/22 Allergies Allergy/AdvReac Type Severity Reaction Status Date / Time No Known Allergies Allergy Verified 09/21/22 07:06 Review of Systems ROS Statement: Those systems with pertinent positive or pertinent negative responses have been documented in the HPI. ROS Other: All systems not noted in ROS Statement are negative. Past Medical History Past Medical History: Hypertension Additional Past Medical History / Comment(s): Migraines, L lower extremity cellulitis/sepsis, pilonidal cysts/abscesses. History of Any Multi-Drug Resistant Organisms: None Reported, MRSA Date of last positivie culture/infection: 07/26/21 MDRO Source:: Right Testicle Past Surgical History: No Surgical Hx Reported, Cholecystectomy, Orthopedic Surgery Additional Past Surgical History / Comment(s): I&D testicle, R tib/fib fracture repair with hardware. Past Anesthesia/Blood Transfusion Reactions: No Reported Reaction Past Psychological History: ADD/ADHD, Anxiety, Depression Smoking Status: Current every day smoker Past Alcohol Use History: None Reported Past Drug Use History: Cocaine, Marijuana, Methamphetamine, Opiates - Past Family History Mother Family Medical History: Cancer Additional Family Medical History / Comment(s): cervical cancer Father Family Medical History: Cancer Additional Family Medical History / Comment(s): Father in 1997 from lung and liver cancer General Exam Limitations: no limitations General appearance: alert, in no apparent distress Head exam: Present: atraumatic, normocephalic, normal inspection Respiratory exam: Present: normal lung sounds bilaterally. Absent: respiratory distress, wheezes, rales, rhonchi, stridor Cardiovascular Exam: Present: regular rate, normal rhythm, normal heart sounds. Absent: systolic murmur, diastolic murmur, rubs, gallop, clicks Neurological exam: Present: alert, oriented X3, CN II-XII intact Psychiatric exam: Present: normal affect, normal mood Skin exam: Present: other (2 cm area of tenderness and induration on the medial aspect of the center of the gluteus halina. There are no punctate lesions or areas of drainage.) Course Vital Signs 09/21/22 07:06 Temperature 98.7 F Pulse Rate 125 H Respiratory 16 Rate Blood Pressure 147/98 O2 Sat by Pulse 98 Oximetry Medical Decision Making - Medical Decision Making This is a 37-year-old male who presents to the emergency department for an abscess. Discussed with the patient that we can try draining this in the emergency department, however it may not produce any significant amount of material at this time, as it has not fully confined into an abscess. Patient declines to have this drained here and would like to start with antibiotics. Ten-day course of Bactrim provided. He was given a prescription for a 5 day course of prednisone to help with pain and swelling and rectal lidocaine cream to help with any additional irritation. I did attempt to give the patient these medications in the emergency department per his request, however he ended up l eaving before they could be administered here. I did however complete my examination and discussion with the patient before he left. Advised warm compresses and warm baths. Also suggested a donut pillow to take pressure off of this area when he is sitting down. If he develops fevers, chills, or increasing pain, he will need to return to the emergency department for possible drainage. He will follow up with his primary care provider to reevaluate the status of the abscess and determine if additional treatment is required. Return precautions reviewed in depth, the patient is instructed to return to the emergency department with any new, worsening, or concerning symptoms. Patient verbalized understanding. This case was discussed in detail with the attending ED physician. Presentation, findings, and treatment plan discussed in detail as well. Disposition Clinical Impression: Abscess of buttock Disposition: HOME SELF-CARE Instructions (If sedation given, give patient instructions): Abscess (ED) Additional Instructions: Return to the emergency department with any new, worsening, or concerning symptoms. Take the Bactrim twice daily for 10 days. You can use the hydrocortisone and lidocaine rectal creams as needed for additional relief. Take the prednisone daily for 5 days. Take warm baths and apply warm compresses. Use a doughnut pillow when seated to take excess pressure off of the area. Follow up with your primary care provider in 1-2 days. Prescriptions: Sulfamethox-Tmp 800-160Mg [Bactrim DS 800-160 mg] 1 tab PO Q12HR 10 Days #20 tab Lidocaine [Lidocaine Rectal Cream 5%] 1 applic TOPICAL TID PRN #30 gram PRN Reason: Pain predniSONE 50 mg PO DAILY 5 Days #5 tablet Is patient prescribed a controlled substance at d/c from ED?: No Referrals: None,Stated [Primary Care Provider] - 1-2 days
[2022-09-21] MEDS ORDERED: HYDROCORTISONE 2.5% RECTAL CREAM 30 GM TUBE RECTAL SCH (09:00)
== END 2022-09-21 08:46 | disposition home or self-care (01) ==
LOC: EC 06:57
DX: L02.31 Cutaneous abscess of buttock (principal); I10 Essential (primary) hypertension; F41.9 Anxiety disorder, unspecified; F32.A Depression, unspecified; F17.200 Nicotine dependence, unspecified, uncomplicated; F12.90 Cannabis use, unspecified, uncomplicated; Z79.899 Other long term (current) drug therapy
CPT/HCPCS: 99283

== ENCOUNTER 2022-09-30 02:09 | Emergency (ER) | payer OTHER ==
[2022-09-30 02:30] VITALS: RESP 16
[2022-09-30] MEDS ORDERED: SULFAMETHOX-TMP 800-160MG 1 EACH TAB PO STA (06:07)
[2022-09-30] MEDS ORDERED: cloNIDine HCL 0.2 MG TAB PO STA (06:09)
[2022-09-30] MEDS ORDERED: LORazepam 1 MG TAB PO STA (06:09)
--- NOTE | 2022-09-30 06:17 | ED ---
Psych HPI - General Source: patient, police Mode of arrival: ambulatory - History of Present Illness MD Complaint: other -: days(s) Associated Psychiatric Symptoms: depression, suicidal ideation, racing thoughts, auditory hallucinations Quality: getting worse Improves With: none Worsens With: none <Andrew Zapata - Last Filed: 09/30/22 06:11> <Dieudonne Shay - Last Filed: 09/30/22 13:13> - General Chief Complaint: Psychiatric Symptoms Stated Complaint: Mental Health Time Seen by Provider: 09/30/22 02:46 - History of Present Illness Initial Comments: This patient is a 37-year-old man with history of previous psychiatric disease who presents with complaint that he is feeling worse than usual. Patient complains of command hallucinations, racing thoughts, some suicidal ideation. Patient states he had been at [facility] for days for appearing abscess. He states that it drain and he was taking antibiotics, so they discharged him. Patient states he was having mild symptoms then but since release he is feeling worse. Patient states he had been given Bactrim at the other facility has not taken it today (Andrew Zapata) - Related Data Previous Rx's Medication Instructions Recorded Ziprasidone [Geodon] 40 mg PO AC-BID 30 Days cap 09/19/22 carvediloL [Coreg*] 12.5 mg PO BID-W/MEALS 30 Days tab 09/19/22 lisinopriL [Zestril] 10 mg PO DAILY 30 Days tab 09/19/22 Lidocaine [Lidocaine Rectal Cream 1 applic TOPICAL TID PRN #30 gram 09/21/22 5%] Sulfamethox-Tmp 800-160Mg [Bactrim 1 tab PO Q12HR 10 Days #20 tab 09/21/22 DS 800-160 mg] predniSONE 50 mg PO DAILY 5 Days #5 tablet 09/21/22 Allergies Allergy/AdvReac Type Severity Reaction Status Date / Time No Known Allergies Allergy Verified 09/30/22 02:27 Review of Systems ROS Other: All systems not noted in ROS Statement are negative. Constitutional: Denies: fever, chills, weakness Eyes: Denies: vision change Respiratory: Denies: cough, dyspnea Cardiovascular: Denies: chest pain, palpitations, edema Gastrointestinal: Denies: abdominal pain, vomiting, diarrhea Genitourinary: Denies: dysuria, hematuria Musculoskeletal: Denies: back pain Skin: Reports: as per HPI, other (Cellulitis) Neurological: Denies: headache, weakness Psychiatric: Reports: auditory hallucinations, suicidal thoughts. Denies: homicidal thoughts <Andrew Zapata - Last Filed: 09/30/22 06:11> ROS Other: All systems not noted in ROS Statement are negative. <Dieudonne Shay - Last Filed: 09/30/22 13:13> ROS Statement: Those systems with pertinent positive or pertinent negative responses have been documented in the HPI. Past Medical History Past Medical History: Hypertension Additional Past Medical History / Comment(s): Migraines, L lower extremity cellulitis/sepsis, pilonidal cysts/abscesses. History of Any Multi-Drug Resistant Organisms: None Reported, MRSA Date of last positivie culture/infection: 07/26/21 MDRO Source:: Right Testicle Past Surgical History: No Surgical Hx Reported, Cholecystectomy, Orthopedic Surgery Additional Past Surgical History / Comment(s): I&D testicle, R tib/fib fracture repair with hardware. Past Anesthesia/Blood Transfusion Reactions: No Reported Reaction Past Psychological History: ADD/ADHD, Anxiety, Depression Smoking Status: Current every day smoker Past Alcohol Use History: None Reported Past Drug Use History: Cocaine, Marijuana, Methamphetamine, Opiates - Past Family History Mother Family Medical History: Cancer Additional Family Medical History / Comment(s): cervical cancer Father Family Medical History: Cancer Additional Family Medical History / Comment(s): Father in 1997 from lung and liver cancer <Andrew Zapata - Last Filed: 09/30/22 06:11> General Exam Limitations: no limitations General appearance: alert Head exam: Present: atraumatic, normocephalic Eye exam: Present: normal appearance. Absent: scleral icterus, conjunctival injection Neck exam: Present: normal inspection Respiratory exam: Present: normal lung sounds bilaterally. Absent: respiratory distress, wheezes, rales, rhonchi, stridor Cardiovascular Exam: Present: normal rhythm, tachycardia (Rate 104 on exam), normal heart sounds. Absent: systolic murmur, diastolic murmur, rubs, gallop GI/Abdominal exam: Present: soft. Absent: distended, tenderness, guarding, rebound, mass Extremities exam: Present: normal inspection, normal capillary refill. Absent: pedal edema, calf tenderness Back exam: Present: normal inspection Neurological exam: Present: alert, oriented X3 Psychiatric exam: Present: anxious, manic, suicidal ideation. Absent: agitated, flat affect, homicidal ideation Skin exam: Present: warm, dry, erythema, other (The patient does have some erythema and induration with excoriations in the romario-anal area. No definite fluid collection.) <Andrew Zapata - Last Filed: 09/30/22 06:11> Course Vital Signs 09/30/22 09/30/22 09/30/22 02:27 07:44 11:37 Temperature 98.6 F 97.8 F Pulse Rate 106 H 78 68 Respiratory 16 16 16 Rate Blood Pressure 162/110 137/63 158/89 O2 Sat by Pulse 98 96 99 Oximetry Medical Decision Making - Lab Data Result diagrams: 09/30/22 07:53 09/30/22 07:53 <Dieudonne Shay - Last Filed: 09/30/22 13:13> - Medical Decision Making Patient seen by mental health services with plans for discharge. They did speak with psychiatrist. Patient reevaluated and denies suicidal ideation. Patient does contract for safety. Patient has plan to follow up with [facility] tomorrow and to continue working. (Dieudonne Shay) - Lab Data Lab Results 09/30/22 09/30/22 09/30/22 Range/Units 06:26 07:53 07:53 WBC 9.1 (3.8-10.6) k/uL RBC 4.73 (4.30-5.90) m/uL Hgb 15.1 (13.0-17.5) gm/dL Hct 43.6 (39.0-53.0) % MCV 92.3 (80.0-100.0) fL MCH 31.9 (25.0-35.0) pg MCHC 34.6 (31.0-37.0) g/dL RDW 13.4 (11.5-15.5) % Plt Count 262 (150-450) k/uL MPV 7.9 Neutrophils % 72 % Lymphocytes % 13 % Monocytes % 10 % Eosinophils % 2 % Basophils % 1 % Neutrophils # 6.6 (1.3-7.7) k/uL Lymphocytes # 1.2 (1.0-4.8) k/uL Monocytes # 0.9 (0-1.0) k/uL Eosinophils # 0.2 (0-0.7) k/uL Basophils # 0.0 (0-0.2) k/uL Sodium 140 (137-145) mmol/L Potassium 4.2 (3.5-5.1) mmol/L Chloride 110 H (98-107) mmol/L Carbon Dioxide 26 (22-30) mmol/L Anion Gap 4 mmol/L BUN 23 H (9-20) mg/dL Creatinine 1.22 (0.66-1.25) mg/dL Est GFR (CKD-EPI)AfAm 88 (>60 ml/min/1.73 sqM) Est GFR (CKD-EPI)NonAf 76 (>60 ml/min/1.73 sqM) Glucose 96 (74-99) mg/dL Calcium 8.3 L (8.4-10.2) mg/dL C-Reactive Protein 0.8 (<1.0) mg/dL Coronavirus (PCR) Not Detected (Not Detectd) Disposition <Andrew Zapata - Last Filed: 09/30/22 06:11> Is patient prescribed a controlled substance at d/c from ED?: No Time of Disposition: 13:13 <Dieudonne Shay - Last Filed: 09/30/22 13:13> Clinical Impression: Depression Disposition: HOME SELF-CARE Condition: Stable Instructions (If sedation given, give patient instructions): Depression (ED) Additional Instructions: Please do follow-up with [facility] tomorrow as planned. Return for thoughts of self-harm, worsening symptoms or any other concerns. Referrals: Darrell Dinh MD [STAFF PHYSICIAN] - 1-2 days
[2022-09-30 07:45] VITALS: TEMP 97.8
[2022-09-30 08:02] LABS: Basophils % (A) 1 %; Eosinophils # (A) 0.2 k/uL (0-0.7); Eosinophils % (A) 2 %; HCT 43.6 % (39.0-53.0); HGB 15.1 gm/dL (13.0-17.5); Lymphocytes # (A) 1.2 k/uL (1.0-4.8); Lymphocytes % (A) 13 %; MCH 31.9 pg (25.0-35.0); MCHC 34.6 g/dL (31.0-37.0); MCV 92.3 fL (80.0-100.0); Mean Platelet Volume 7.9; Monocytes # (A) 0.9 k/uL (0-1.0); Monocytes % (A) 10 %; Neutrophils # (A) 6.6 k/uL (1.3-7.7); Neutrophils % (A) 72 %; Platelet Count 262 k/uL (150-450); RBC 4.73 m/uL (4.30-5.90); RDW 13.4 % (11.5-15.5); WBC 9.1 k/uL (3.8-10.6)
[2022-09-30 08:20] LABS: Calcium 8.3 mg/dL (8.4-10.2); Potassium 4.2 mmol/L (3.5-5.1)
[2022-09-30 08:40] LABS: C Reactive Protein 0.8 mg/dL (<1.0)
[2022-09-30 14:05] VITALS: BP 148/86; PULSE 80
== END 2022-09-30 14:25 | disposition home or self-care (01) ==
LOC: EC 02:09
DX: F32.A Depression, unspecified (principal); I10 Essential (primary) hypertension; F90.9 Attention-deficit hyperactivity disorder, unspecified type; F41.9 Anxiety disorder, unspecified; F17.200 Nicotine dependence, unspecified, uncomplicated; F14.90 Cocaine use, unspecified, uncomplicated; F12.90 Cannabis use, unspecified, uncomplicated; F15.10 Other stimulant abuse, uncomplicated; Z79.899 Other long term (current) drug therapy; Z88.5 Allergy status to narcotic agent; Z03.818 Encounter for observation for suspected exposure to other biological agents ruled out
CPT/HCPCS: 36415; 80048; 82075; 85025; 86140; 87635; 99285

== ENCOUNTER 2022-12-14 12:51 | Inpatient (IN) | payer MEDICAID, OTHER ==
[2022-12-14] MEDS ORDERED: MAGNESIUM HYDROXIDE 2,400 MG/10 ML CUP PO PRN (13:18)
[2022-12-14] MEDS ORDERED: MAG HYDROX/AL HYDROX/SIMETH 30 ML CUP PO PRN (13:18)
[2022-12-14] MEDS ORDERED: HALOPERIDOL LACTATE 5 MG/ML 1 ML VIAL IM PRN (13:18)
[2022-12-14] MEDS ORDERED: LORazepam 2 MG/ML INJ IM PRN (13:24)
[2022-12-14] MEDS ORDERED: haloperidoL 5 MG TAB PO PRN (13:24)
[2022-12-14] MEDS: NICOTINE 14MG/24HR PATCH TRANSDERM SCH (16:43)
[2022-12-14] MEDS: NICOTINE GUM (POLACRILEX) 2 MG GUM BUCCAL PRN ×2 (16:58→20:31)
[2022-12-14] MEDS ORDERED: carvediloL 12.5 MG TAB PO SCH (17:45)
--- NOTE | 2022-12-14 17:46 | P.HPIM ---
History of Present Illness H&P Date: 12/14/22 This is a 37-year-old male who presents to [facility] psychiatric unit with history of auditory hallucinations, depression, and suicidal thoughts. Patient also has a known history of hypertension. Blood pressure has been running high. Patient does complain of headache. Patient d enies this is the worst headache of his life. Patient further denies chest pain, shortness breath, nausea, vomiting, fever, or chills. Patient admits to insomnia. Patient has no other medical concerns at this time. Review of Systems 14 point review of systems was assessed patient was only positive for those discussed in HPI Past Medical History Past Medical History: Hypertension Additional Past Medical History / Comment(s): Migraines, L lower extremity cellulitis/sepsis, pilonidal cysts/abscesses. History of Any Multi-Drug Resistant Organisms: None Reported, MRSA Date of last positivie culture/infection: 07/26/21 MDRO Source:: Right Testicle Past Surgical History: No Surgical Hx Reported, Cholecystectomy, Orthopedic Surgery Additional Past Surgical History / Comment(s): I&D testicle, R tib/fib fracture repair with hardware. Past Anesthesia/Blood Transfusion Reactions: No Reported Reaction Past Psychological History: ADD/ADHD, Anxiety, Depression Smoking Status: Current every day smoker Past Alcohol Use History: None Reported Past Drug Use History: Cocaine, Heroin, IV Drug Use, Marijuana, Methamphetamine, Opiates - Past Family History Mother Family Medical History: Cancer Additional Family Medical History / Comment(s): cervical cancer Father Family Medical History: Cancer Additional Family Medical History / Comment(s): Father in 1997 from lung and liver cancer Medications and Allergies Home Medications Medication Instructions Recorded Confirmed Type Ziprasidone [Geodon] 40 mg PO AC-BID 30 Days cap 09/19/22 Rx carvediloL [Coreg*] 12.5 mg PO BID-W/MEALS 30 Days tab 09/19/22 Rx lisinopriL [Zestril] 10 mg PO DAILY 30 Days tab 09/19/22 Rx Lidocaine [Lidocaine Rectal Cream 1 applic TOPICAL TID PRN #30 gram 09/21/22 Rx 5%] Sulfamethox-Tmp 800-160Mg [Bactrim 1 tab PO Q12HR 10 Days #20 tab 09/21/22 Rx DS 800-160 mg] predniSONE 50 mg PO DAILY 5 Days #5 tablet 09/21/22 Rx Allergies Allergy/AdvReac Type Severity Reaction Status Date / Time No Known Allergies Allergy Verified 09/30/22 02:27 Physical Exam Osteopathic Statement: *. No significant issues noted on an osteopathic structural exam other than those noted in the History and Physical/Consult. Vitals: Vital Signs Temp Pulse Resp BP Pulse Ox 12/14/22 16:47 97.8 F 86 16 164/83 98 Intake and Output 12/14/22 12/14/22 12/14/22 06:59 14:59 22:59 Other: Weight 77.1 kg 74.843 kg General: [non toxic], [no distress], [appears older than stated age] disheveled Derm: [warm], [dry] Head: [atraumatic], [normocephalic], [symmetric] Eyes: [EOMI], [no lid lag], [anicteric sclera] Mouth: [no lip lesion], [mucus membranes moist] Cardiovascular: [S1S2 reg], [no murmur], [positive posterior tibial pulse bilateral], Lungs: [CTA bilateral], [no rhonchi, no rales] , [no accessory muscle use] Abdominal: [soft], [ nontender to palpation], [no guarding], [no appreciable or ganomegaly] Ext: [no gross muscle atrophy], [no edema], [no contractures] Neuro: [ CN II-XI grossly intact], [no focal neuro deficits] Psych: [Alert], [oriented], [anxious] Thrombosis Risk Factor Assmnt - DVT/VTE Prophylaxis DVT/VTE Prophylaxis: Low risk, early ambulation encouraged Assessment and Plan Assessment: 1. Hypertension uncontrolled Restart Coreg Continue lisinopril Monitor vitals Labs ordered 2. Psychiatric disorder Psychiatry recommendations as follows 3. Insomnia Patient advised to discuss this with Dr. Marie 5. A.m. labs Thank you for allowing us to participate in patient's care. He had any questions or concerns please do not hesitate to contact the [facility] hospitalist team. Time with Patient: Greater than 30
[2022-12-14] MEDS: carvediloL 6.25 MG TAB PO SCH (17:59)
[2022-12-14] MEDS: ACETAMINOPHEN TAB 325 MG TAB PO PRN (19:44)
[2022-12-15] MEDS: ACETAMINOPHEN TAB 325 MG TAB PO PRN ×2 (00:15→07:45)
[2022-12-15] MEDS: NICOTINE GUM (POLACRILEX) 2 MG GUM BUCCAL PRN ×2 (07:45→17:06)
[2022-12-15] MEDS: carvediloL 6.25 MG TAB PO SCH ×2 (07:45→17:05)
[2022-12-15] MEDS: lisinopriL 10 MG TAB PO SCH (07:45)
[2022-12-15 08:21] LABS: ALT 114 U/L (4-49); AST 85 U/L (17-59); African American GFR (CKD) >90 (>60 ml/min/1.73 sqM); Albumin 3.5 g/dL (3.5-5.0); Alkaline Phosphatase 93 U/L (38-126); Anion Gap 4 mmol/L; Blood Urea Nitrogen 19 mg/dL (9-20); Calcium 8.2 mg/dL (8.4-10.2); Carbon Dioxide 25 mmol/L (22-30); Chloride 107 mmol/L (98-107); Glucose 84 mg/dL (74-99); Non-African American GFR(CKD) 84 (>60 ml/min/1.73 sqM); Sodium 136 mmol/L (137-145); Total Bilirubin 0.7 mg/dL (0.2-1.3); Total Protein 6.7 g/dL (6.3-8.2)
[2022-12-15] MEDS: NICOTINE 14MG/24HR PATCH TRANSDERM SCH (08:45)
[2022-12-15 08:47] LABS: Basophils % (A) 1 %; Eosinophils # (A) 0.1 k/uL (0-0.7); Eosinophils % (A) 2 %; HCT 46.6 % (39.0-53.0); HGB 15.9 gm/dL (13.0-17.5); Lymphocytes # (A) 1.4 k/uL (1.0-4.8); Lymphocytes % (A) 21 %; MCHC 34.1 g/dL (31.0-37.0); MCV 90.9 fL (80.0-100.0); Monocytes # (A) 0.5 k/uL (0-1.0); Monocytes % (A) 8 %; Neutrophils # (A) 4.3 k/uL (1.3-7.7); Neutrophils % (A) 66 %; Platelet Count 212 k/uL (150-450); RBC 5.12 m/uL (4.30-5.90); RDW 13.5 % (11.5-15.5); WBC 6.5 k/uL (3.8-10.6)
[2022-12-15] MEDS ORDERED: risperiDONE 1 MG TAB PO STA (10:19)
[2022-12-15] MEDS: LORazepam 1 MG TAB PO PRN ×2 (10:59→20:47)
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
[2022-12-15] MEDS: risperiDONE 1 MG TAB PO SCH (20:14)
[2022-12-15] MEDS: DULoxetine HCL 20 MG CAPSULE.DR PO SCH (20:14)
[2022-12-16] MEDS: NICOTINE 14MG/24HR PATCH TRANSDERM SCH (08:19)
[2022-12-16] MEDS: carvediloL 6.25 MG TAB PO SCH ×2 (08:19→17:56)
[2022-12-16] MEDS: lisinopriL 10 MG TAB PO SCH (08:19)
[2022-12-16] MEDS: risperiDONE 1 MG TAB PO SCH ×2 (08:19→20:03)
[2022-12-16] MEDS: DULoxetine HCL 20 MG CAPSULE.DR PO SCH ×2 (08:19→20:03)
[2022-12-16] MEDS: ACETAMINOPHEN TAB 325 MG TAB PO PRN (08:23)
[2022-12-16] MEDS: NICOTINE GUM (POLACRILEX) 2 MG GUM BUCCAL PRN ×2 (08:23→16:23)
[2022-12-16] MEDS: LORazepam 1 MG TAB PO PRN ×2 (17:57→20:04)
--- NOTE | 2022-12-16 20:37 | P.PN ---
Progress Note - Text Progress Note Date: 12/16/22 Interval History: Patient was seen bedside. He was somnolent on approach and reported that he had been doing well with the medications. Patient appears to be withdrawing from methamphetamine. He states that his mood has been "good ". He reports eating and sleeping well. He has not been participating in groups this morning. At this time patient denies any suicidal or homicidal ideations, intent or plan. Patient denies any auditory, visual hallucinations and denies any paranoia or delusions. Patient denies any side effects from the medications and has been compliant with meds. Mental Status Exam: General Appearance: Patient appears to be stated age is alert, directable, and attempts to cooperate. Patient appears to have disheveled hygiene and grooming. Patient has multiple tattoos. Unkempt oh and hair. Behavior: Patient displays elevated psychomotor activity. Eye contact is intense. Speech: Patient's speech is fluent and nonpressured. Mood/Affect: Patient reports their mood is depressed, affect is incongruent and bright Suicidality/Homicidality: Patient reports suicidal ideation however denies any homicidal ideation. Perceptions: Patient denies any visual hallucinations and denies any auditory hallucinations Though content/process: Recently endorse a Capgras delusion involving his mother. Thoughts are more linear today Memory and concentration: AOX3, grossly intact for the purposes of this session. Concentration appears to be grossly poor. 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 Patient signed adult voluntary form and medication consent and is placed in patient's chart. -Medications : Risperdal 1 mg by mouth twice a day for mood stabilization/psychosis Cymbalta 20 mg by mouth twice a day for depression -Ativan and Haldol PRN for agitation/aggression -Patient was counselled on substance abuse and desired to cut back on use -Patient was informed of the risks, benefits and side effects of the medication and patient verbally consented to taking the medications. Patient signed med con sent form and was placed in chart. -Internal Medicine consult to perform medical evaluation and physical. -NRT - nicotine patch -SW on board for discharge planning. Encourage patient to participate in groups to work on coping skills.
[2022-12-17] MEDS: DULoxetine HCL 20 MG CAPSULE.DR PO SCH ×2 (08:11→20:35)
[2022-12-17] MEDS: NICOTINE 14MG/24HR PATCH TRANSDERM SCH (08:12)
[2022-12-17] MEDS: carvediloL 6.25 MG TAB PO SCH ×2 (08:13→17:49)
[2022-12-17] MEDS: lisinopriL 10 MG TAB PO SCH (08:13)
[2022-12-17] MEDS: risperiDONE 1 MG TAB PO SCH (08:13)
[2022-12-17] MEDS: NICOTINE GUM (POLACRILEX) 2 MG GUM BUCCAL PRN ×2 (13:04→17:31)
[2022-12-17] MEDS: LORazepam 1 MG TAB PO PRN ×2 (13:05→19:21)
--- NOTE | 2022-12-17 18:11 | P.PN ---
Progress Note - Text Progress Note Date: 12/17/22 Interval History: Patient was seen bedside. He was somnolent on approach and reported that he had been doing well with the medications. He appeared more elevated while interacting on the unit and had tangential speech when he was wandering the halls. He states that his mood has been "good " but that he has been having a headache for which he took Tylenol. He reports eating well but had some trouble sleeping (likely because he sleeps during daytime). Sleep hygiene encouraged. He has not been participating in groups and was encouraged to do so. At this time patient denies any suicidal or homicidal ideations, intent or plan. Patient denies any auditory, visual hallucinations and denies any paranoia or delusions. Patient denies any side effects from the medications and has been compliant with meds. He was agreeable with Risperdal being increased. Mental Status Exam: General Appearance: Patient appears to be stated age is alert, directable, and attempts to cooperate. Patient appears to have disheveled hygiene and grooming. Patient has multiple tattoos. Unkempt oh and hair. Behavior: Patient was sedated. Eye contact is fair. Speech: Patient's speech is fluent and nonpressured. Mood/Affect: Patient reports their mood is depressed, affect is incongruent Suicidality/Homicidality: Patient denies suicidal ideation however denies any homicidal ideation. Perceptions: Patient denies any visual hallucinations and denies any auditory hallucinations Though content/process: Recently endorse a Capgras delusion involving his mother. Thoughts are more linear today Memory and concentration: AOX3, grossly intact for the purposes of this session. Concentration appears to be grossly poor. 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 Patient signed adult voluntary form and medication consent and is placed in patient's chart. -Medications : Increase Risperdal to 1 mg by mouth daily and 2 mg qHS for mood stabilization/psychosis Cymbalta 20 mg by mouth twice a day for depression -Ativan and Haldol PRN for agitation/aggression -Patient was counselled on substance abuse and desired to cut back on use -Patient was informed of the risks, benefits and side effects of the medication and patient verbally consented to taking the medications. Patient signed med consent form and was placed in chart. -Internal Medicine consult to perform medical evaluation and physical. -NRT - nicotine patch -SW on board for discharge planning. Encourage patient to participate in groups to work on coping skills.
[2022-12-17] MEDS: risperiDONE 2 MG TAB PO SCH (20:36)
[2022-12-18] MEDS: ACETAMINOPHEN TAB 325 MG TAB PO PRN (02:31)
[2022-12-18 07:55] LABS: Glucose,Whole Blood 97 mg/dL (70-110)
[2022-12-18] MEDS: risperiDONE 1 MG TAB PO SCH (08:22)
[2022-12-18] MEDS: NICOTINE 14MG/24HR PATCH TRANSDERM SCH (08:22)
[2022-12-18] MEDS: lisinopriL 10 MG TAB PO SCH (08:22)
[2022-12-18] MEDS: DULoxetine HCL 20 MG CAPSULE.DR PO SCH ×2 (08:22→20:55)
[2022-12-18] MEDS: carvediloL 6.25 MG TAB PO SCH ×2 (08:22→16:40)
[2022-12-18] MEDS: LORazepam 1 MG TAB PO PRN ×3 (08:24→22:10)
[2022-12-18] MEDS: NICOTINE GUM (POLACRILEX) 2 MG GUM BUCCAL PRN ×2 (08:24→16:40)
--- NOTE | 2022-12-18 13:12 | P.PN ---
Progress Note - Text Progress Note Date: 12/18/22 Interval History: Patient was seen resting in bed and was directable and agreeable to speak with gag writer in his room. Currently, the patient is not reporting any suicidal or homicidal ideas and/or plan. He is not reporting any auditory or visual hallucinations. He denies any paranoia or other delusions. He expresses a desire to go to rehab at [place] as he is homeless and is seeking senior living. He reports he is adherent with his medications and reports no significant side effects. He reports no issues regarding sleep or appetite. Despite his desire to go to [facility] he has not called. He was informed of pending discharge tomorrow. Mental Status Exam: General Appearance: Patient appears to be stated age is alert, directable, and cooperative. Behavior: Patient is calmly lying down in bed without any agitated behavior. Speech: Patient's speech is fluent and nonpressured. Mood/Affect: Mood is improving mildly, affect is congruent and constricted. Suicidality/Homicidality: Patient denies having any suicidal or homicidal ideation intent or plan. Perceptions: Patient denies any visual hallucinations and denies any auditory hallucinations Though content/process: There is no evidence of any delusional thought content and thought process is linear and goal-directed. 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 Patient has signed adult voluntary form and medication consent and was placed in patient's chart. -Medications: Continue riserpdal 1 mg in the morning and 2 mg at bedtime for mood stabilization/psychosis Continue Cymbalta 20 mg twice daily for depression -When necessary Ativan and Haldol for agitation/aggression. -NRT - nicotine patch -SW on board for discharge planning. Encouraged the patient to participate in milieu.
[2022-12-18 17:27] VITALS: RESP 16
[2022-12-18 18:44] VITALS: PULSE 69; TEMP 97.2
[2022-12-18] MEDS: risperiDONE 2 MG TAB PO SCH (20:55)
[2022-12-19] MEDS: carvediloL 6.25 MG TAB PO SCH (09:22)
[2022-12-19] MEDS: NICOTINE 14MG/24HR PATCH TRANSDERM SCH (09:22)
[2022-12-19] MEDS: risperiDONE 1 MG TAB PO SCH (09:23)
[2022-12-19] MEDS: lisinopriL 10 MG TAB PO SCH (09:23)
[2022-12-19] MEDS: DULoxetine HCL 20 MG CAPSULE.DR PO SCH (09:23)
[2022-12-19 09:25] VITALS: BP 147/68
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
== END 2022-12-19 11:55 | disposition home or self-care (01) | DRG 885 ==
LOC: 3MHU 15:58
PROVIDERS: ADMIT Psychiatry & Neurology Psychiatry; ATTEND Psychiatry & Neurology Psychiatry
DX: F23 Brief psychotic disorder (principal); R45.851 Suicidal ideations; F11.21 Opioid dependence, in remission; F12.90 Cannabis use, unspecified, uncomplicated; F15.90 Other stimulant use, unspecified, uncomplicated; F17.210 Nicotine dependence, cigarettes, uncomplicated; F32.A Depression, unspecified; F41.9 Anxiety disorder, unspecified; F90.9 Attention-deficit hyperactivity disorder, unspecified type; G47.00 Insomnia, unspecified; I10 Essential (primary) hypertension; Z56.0 Unemployment, unspecified; Z59.00 Homelessness unspecified; Z79.899 Other long term (current) drug therapy
CPT/HCPCS: 80053; 83036; 84443; 85025

== ENCOUNTER 2023-06-19 21:09 | Inpatient (IN) | payer MEDICAID, OTHER ==
[2023-06-19] MEDS ORDERED: QUEtiapine 25 MG TAB PO STA (21:36)
[2023-06-19] MEDS ORDERED: LISINOPRIL-HCTZ 20-25 MG 1 EACH TAB PO ONE (21:45)
--- NOTE | 2023-06-20 02:06 | ED ---
Psych HPI - General Chief Complaint: Psychiatric Symptoms Stated Complaint: Suicidal Time Seen by Provider: 06/19/23 21:15 Source: patient, EMS Mode of arrival: EMS - History of Present Illness Initial Comments: 38-year-old male with past medical history of polysubstance abuse, daily alcohol use, bipolar disorder who presents to the emergency department reporting suicidal ideations. States that his mother has cancer and is currently undergoing chemo. He is assisting in caring for her. States that this has him significantly depressed to the point where he feels suicidal without a plan. He has not been taking any of his medications. He is currently not following up with a therapist in the outpatient setting. Admits he has been drinking daily and drank several pints today of whiskey. Denies harming himself. Has been previously hospitalized for his mental health. No other alleviating, precipitating or modifying factors - Related Data Previous Rx's Medication Instructions Recorded Folic Acid 1 mg PO DAILY 30 Days #30 tab 05/29/23 Ibuprofen [Motrin] 600 mg PO Q6HR PRN tab 05/29/23 Lisinopril-Hctz 20-25 mg 1 each PO DAILY 30 Days #30 tab 05/29/23 [Zestoretic 20-25] Nicotine 14Mg/24Hr Patch [Habitrol] 1 patch TRANSDERM DAILY 14 Days 05/29/23 #14 patch QUEtiapine [SEROquel] 50 mg PO HS 30 Days #30 tab 05/29/23 Sertraline [Zoloft] 50 mg PO DAILY 30 Days #30 tab 05/29/23 Thiamine [Vitamin B-1] 100 mg PO DAILY 30 Days #30 tab 05/29/23 amLODIPine [Norvasc] 5 mg PO DAILY 30 Days #30 tab 05/29/23 Allergies Allergy/AdvReac Type Severity Reaction Status Date / Time No Known Allergies Allergy Verified 06/19/23 21:27 Review of Systems ROS Statement: Those systems with pertinent positive or pertinent negative responses have been documented in the HPI. ROS Other: All systems not noted in ROS Statement are negative. Past Medical History Past Medical History: Hypertension Additional Past Medical History / Comment(s): Migraines, L lower extremity cellulitis/sepsis, pilonidal cysts/abscesses. History of Any Multi-Drug Resistant Organisms: MRSA Date of last positivie culture/infection: 9/7/21 MDRO Source:: Right Testicle Past Surgical History: No Surgical Hx Reported, Cholecystectomy, Orthopedic Surgery Additional Past Surgical History / Comment(s): I&D testicle, R tib/fib fracture repair with hardware. Past Anesthesia/Blood Transfusion Reactions: No Reported Reaction Past Psychological History: ADD/ADHD, Anxiety, Depression Smoking Status: Current every day smoker Past Alcohol Use History: Abuse, Daily Past Drug Use History: None Reported, Cocaine, Heroin, IV Drug Use, Marijuana, Methamphetamine, Opiates - Past Family History Mother Family Medical History: Cancer Additional Family Medical History / Comment(s): cervical cancer Father Family Medical History: Cancer Additional Family Medical History / Comment(s): Father in 1997 from lung and liver cancer General Exam General appearance: alert, appears intoxicated Head exam: Present: atraumatic, normocephalic, normal inspection Eye exam: Present: normal appearance, PERRL, EOMI. Absent: scleral icterus, conjunctival injection, periorbital swelling ENT exam: Present: normal exam, mucous membranes moist Neck exam: Present: normal inspection. Absent: tenderness, meningismus, lymphadenopathy Respiratory exam: Present: normal lung sounds bilaterally. Absent: respiratory distress, wheezes, rales, rhonchi, stridor Cardiovascular Exam: Present: regular rate, normal rhythm, normal heart sounds. Absent: systolic murmur, diastolic murmur, rubs, gallop, clicks GI/Abdominal exam: Present: soft, normal bowel sounds. Absent: distended, tenderness, guarding, rebound, rigid Extremities exam: Present: normal inspection, full ROM, normal capillary refill. Absent: tenderness, pedal edema, joint swelling, calf tenderness Back exam: Present: normal inspection Neurological exam: Present: alert, oriented X3, CN II-XII intact Psychiatric exam: Present: depressed, suicidal ideation Skin exam: Present: warm, dry, intact, normal color. Absent: rash Course Vital Signs 06/19/23 06/20/23 21:10 02:54 Temperature 98.7 F Pulse Rate 116 H 94 Respiratory 19 18 Rate Blood Pressure 160/101 155/61 O2 Sat by Pulse 97 96 Oximetry Medical Decision Making - Medical Decision Making Was pt. sent in by a medical professional or institution (, PA, VALIDATION INTERN, urgent care, hospital, or [facility]...) When possible be specific @ -No Did you speak to anyone other than the patient for history (EMS, parent, family, police, friend...)? What history was obtained from this source @ -EMS Did you review nursing and triage notes (agree or disagree)? Why? @ -I reviewed and agree with nursing and triage notes Were old charts reviewed (outside hosp., previous admission, EMS record, old EKG, old radiological studies, urgent care reports/EKG's, [facility] records)? Report findings @ -I reviewed patient's previous hospitalization on with discharge [facility] on May 29 Differential Diagnosis (chest pain, altered mental status, abdominal pain women, abdominal pain men, vaginal bleeding, weakness, fever, dyspnea, syncope, headache, dizziness, GI bleed, back pain, seizure, CVA, palpatations, mental health, musculoskeletal)? @ -Differential Mental Health Depression, anxiety, bipolar, psychosis, schizophrenia, borderline personality, situational depression, adjustment disorder, behavioral disorder, brain tumor, malingering, substance abuse, encephalopathy, medication reaction, dementia, hypothyroidism, degenerative neurologic disorder, lupus.... This is not meant to be all-inclusive list EKG interpreted by me (3pts min.). @ -Not completed X-rays interpreted by me (1pt min.). @ -None done CT interpreted by me (1pt min.). @ -None done U/S interpreted by me (1pt. min.). @ -None done What testing was considered but not performed or refused? (CT, X-rays, U/S, labs)? Why? @ -None What meds were considered but not given or refused? Why? @ -None Did you discuss the management of the patient with other professionals (professionals i.e. , PA, VALIDATION INTERN, lab, RT, psych nurse, social media marketing specialist, attorney lawyer, teacher, medical information officer, dependency case manager)? Give summary @ -I spoke with the EPS nurse in regards to the patient's presenting complaint Was smoking cessation discussed for >3mins.? @ -No Was critical care preformed (if so, how long)? @ -No Were there social determinants of health that impacted care today? How? (Homelessness, low income, unemployed, alcoholism, drug addiction, transportation, low edu. Level, literacy, decrease access to med. care, nursing home, rehab)? @ -Polysubstance abuse, alcoholism Was there de-escalation of care discussed even if they declined (Discuss DNR or withdrawal of care, Hospice)? DNR status @ -No What co-morbidities impacted this encounter? (DM, HTN, Smoking, COPD, CAD, Cancer, CVA, ARF, Chemo, Hep., AIDS, mental health diagnosis, sleep apnea, morb id obesity)? @ -Bipolar disorder Was patient admitted / discharged? Hospital course, mention meds given and route, prescriptions, significant lab abnormalities, going to OR and other pertinent info. @ -Upon arrival patient was placed in room 14. A thorough history and physical exam was performed. Patient is intoxicated. Reports suicidal ideations. Patient is sober around 12:30 AM. Continues to report to depression with suicidal ideations. He is evaluated by EPS and requires admission. Covid is added. Patient will be transferred to the floor in stable condition Undiagnosed new problem with uncertain prognosis? @ -No Drug Therapy requiring intensive monitoring for toxicity (Heparin, Nitro, Insulin, Cardizem)? @ -No Were any procedures done? @ -No Diagnosis/symptom? @ -Acute depression, acute suicidal ideations, bipolar disorder - chronic Acute, or Chronic, or Acute on Chronic? @ -See above Uncomplicated (without systemic symptoms) or Complicated (systemic symptoms)? @ -Complicated Side effects of treatment? @ -No Exacerbation, Progression, or Severe Exacerbation? @ -No Poses a threat to life or bodily function? How? (Chest pain, USA, NE, pneumonia, PE, COPD, DKA, ARF, appy, cholecystitis, CVA, Diverticulitis, Homicidal, Suicidal, threat to staff... and all critical care pts) @ -Yes patient is actively suicidal Disposition Clinical Impression: Depression, Alcohol intoxication Disposition: TRANSFER TO PSYCH HOSP/UNIT Condition: Stable Is patient prescribed a controlled substance at d/c from ED?: No Referrals: None,Stated [Primary Care Provider] - 1-2 days Time of Disposition: 04:09 Decision to Admit Reason: Admit from EC Decision Date: 06/20/23 Decision Time: 04:09
[2023-06-20] MEDS ORDERED: MAG HYDROX/AL HYDROX/SIMETH 30 ML CUP PO PRN (04:37)
[2023-06-20] MEDS ORDERED: HALOPERIDOL LACTATE 5 MG/ML 1 ML VIAL IM PRN (04:37)
[2023-06-20] MEDS ORDERED: LORazepam 1 MG TAB PO PRN (04:37)
[2023-06-20] MEDS ORDERED: MAGNESIUM HYDROXIDE 2,400 MG/30 ML CUP PO PRN (04:37)
[2023-06-20] MEDS ORDERED: ACETAMINOPHEN TAB 325 MG TAB PO PRN (04:37)
[2023-06-20] MEDS ORDERED: haloperidoL 5 MG TAB PO PRN (04:37)
[2023-06-20] MEDS ORDERED: LORazepam 2 MG/ML INJ IM PRN (04:44)
[2023-06-20] MEDS: chlordiazePOXIDE 25 MG CAP PO SCH ×3 (08:11→20:32)
[2023-06-20] MEDS ORDERED: NICOTINE 21MG/24HR PATCH TRANSDERM SCH (09:00)
[2023-06-20 09:35] LABS: Appearance,Urine Clear (Clear); Bilirubin,Urine Negative (Negative); Blood,Urine Trace (Negative); Color,Urine Yellow; Glucose,Urine (UA) Negative (Negative); Ketones,Urine Negative (Negative); Leukocyte Esterase,Urine Negative (Negative); Nitrite,Urine Negative (Negative); PH, Urine 5.5 (5.0-8.0); Protein,Urine Negative (Negative); Urobilinogen,Urine <2.0 mg/dL (<2.0)
[2023-06-20] MEDS ORDERED: hydrOXYzine HCL 50 MG/ML 1 ML VIAL IM PRN (10:24)
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
[2023-06-20 14:01] LABS: Urine Alcohol Negative (Negative); Urine Barbiturate Negative (Negative); Urine Cocaine Negative (Negative); Urine Methadone Negative (Negative); Urine Opiates Negative (Negative); Urine Phencyclidine Negative (Negative)
[2023-06-20] MEDS: NICOTINE GUM (POLACRILEX) 2 MG GUM BUCCAL PRN ×2 (17:15→20:32)
[2023-06-21] MEDS: chlordiazePOXIDE 25 MG CAP PO SCH ×2 (08:01→13:41)
[2023-06-21] MEDS: NICOTINE GUM (POLACRILEX) 2 MG GUM BUCCAL PRN ×3 (08:37→17:44)
[2023-06-21 09:04] LABS: Basophils % (A) 1 %; Eosinophils # (A) 0.3 k/uL (0-0.7); Eosinophils % (A) 4 %; HCT 45.6 % (39.0-53.0); HGB 15.5 gm/dL (13.0-17.5); Lymphocytes # (A) 1.5 k/uL (1.0-4.8); Lymphocytes % (A) 25 %; MCH 32.1 pg (25.0-35.0); MCV 94.5 fL (80.0-100.0); Mean Platelet Volume 8.7; Monocytes # (A) 0.5 k/uL (0-1.0); Monocytes % (A) 8 %; Neutrophils # (A) 3.7 k/uL (1.3-7.7); Neutrophils % (A) 60 %; Platelet Count 180 k/uL (150-450); RBC 4.82 m/uL (4.30-5.90); RDW 14.3 % (11.5-15.5); WBC 6.1 k/uL (3.8-10.6)
[2023-06-21 09:20] LABS: ALT 112 U/L (4-49); AST 90 U/L (17-59); African American GFR (CKD) >90 (>60 ml/min/1.73 sqM); Albumin 3.4 g/dL (3.5-5.0); Alkaline Phosphatase 108 U/L (38-126); Anion Gap 5 mmol/L; Bilirubin, Delta 0.1 mg/dL (0.0-0.2); Bilirubin,Unconjugated 0.8 mg/dL (0.0-1.1); Blood Urea Nitrogen 18 mg/dL (9-20); Calcium 8.2 mg/dL (8.4-10.2); Carbon Dioxide 26 mmol/L (22-30); Chloride 104 mmol/L (98-107); Glucose 107 mg/dL (74-99); Non-African American GFR(CKD) 81 (>60 ml/min/1.73 sqM); Sodium 135 mmol/L (137-145); Total Bilirubin 0.9 mg/dL (0.2-1.3); Total Protein 6.7 g/dL (6.3-8.2)
--- NOTE | 2023-06-21 11:06 | P.PN ---
Progress Note - Text Progress Note Date: 06/21/23 Interval History: Patient was seen resting in bed and was directable and agreeable to speak with lead technical writer in his room. Currently, the patient reports suicidal ideation and hopelessness. He reports that he has no idea what to do with his life. He states that he is homeless and has no income. The patient also reports that he is experiencing auditory hallucinations. He does not go into specifics. He denies any paranoia or other delusions. Patient was informed that his substance abuse tends to get in the way of his goals. He reports that he would consider rehab if he had transportation. He has been adherent with his medications however is requesting Seroquel for insomnia. He reports that he has poor sleep. He remains primarily isolative to himself in his room. Mental Status Exam: General Appearance: Patient appears to be stated age is alert, directable, and cooperative. Behavior: Patient is calmly lying down in bed without any agitated behavior. Speech: Patient's speech is fluent and nonpressured. Mood/Affect: Mood is "not good." Affect is constricted. Suicidality/Homicidality: Patient reports suicidal ideation however denies any homicidal ideation. Perceptions: Patient denies any visual hallucinations he does endorse auditory hallucinations. Though content/process: There is no evidence of any delusional thought content and thought process is linear and goal-directed. Memory and concentration: AOX3, grossly intact for the purposes of this session Judgment and insight: Improving mildly Vital Signs Temp 97.4 F L 06/20/23 08:00 Pulse 72 06/21/23 00:19 Resp 18 06/21/23 00:19 BP 145/92 06/21/23 00:19 Pulse Ox 99 06/21/23 00:19 FiO2 Laboratory Results - Last 24 Hours 06/20/23 06/21/23 06/21/23 08:00 08:27 08:27 WBC 6.1 RBC 4.82 Hgb 15.5 Hct 45.6 MCV 94.5 MCH 32.1 MCHC 34.0 RDW 14.3 Plt Count 180 MPV 8.7 Neutrophils % 60 Lymphocytes % 25 Monocytes % 8 Eosinophils % 4 Basophils % 1 Neutrophils # 3.7 Lymphocytes # 1.5 Monocytes # 0.5 Eosinophils # 0.3 Basophils # 0.0 Sodium 135 L Potassium 4.0 Chloride 104 Carbon Dioxide 26 Anion Gap 5 BUN 18 Creatinine 1.16 Est GFR (CKD-EPI)AfAm >90 Est GFR (CKD-EPI)NonAf 81 Glucose 107 H Calcium 8.2 L Total Bilirubin 0.9 Conjugated Bilirubin 0.0 Unconjugated Bilirubin 0.8 Delta Bilirubin 0.1 AST 90 H ALT 112 H Alkaline Phosphatase 108 Total Protein 6.7 Albumin 3.4 L TSH 1.020 Urine Opiates Screen Negative Urine Methadone Screen Negative Ur Propoxyphene Screen Negative Urine Barbiturates Negative Ur Phencyclidine Scrn Negative Ur Amphetamine Screen Positive A U Benzodiazepines Scrn Negative Urine Cocaine Screen Negative U Cannabinoids Screen Positive A Urine Alcohol Negative Assessment Bipolar disorder, depressed episode Methamphetamine use disorder in early remission Heroin Use Disorder, in remission Tobacco Use Disorder cannabis use disorder Plan: -Patient continues to meet criteria for inpatient psychiatric admission for s ymptom stabilization and safety. Patient has signed adult voluntary form and medication consent and was placed in patient's chart. -Medications: Increase Thorazine to 25 mg by mouth twice a day and 50 mg at bedtime for mood stabilization -When necessary Vistaril and Haldol for agitation/aggression. -NRT - nicotine patch -SW on board for discharge planning. Encouraged the patient to participate in milieu.
[2023-06-21] MEDS: IBUPROFEN 600 MG TAB PO PRN (16:58)
[2023-06-21 17:10] LABS: Chol/HDL Ratio 1.65 Ratio; LDL Cholesterol,Calculated 31.7 mg/dL (0.0-131.0); VLDL Calculation 18.62 mg/dL (5.00-40.00)
[2023-06-21] MEDS ORDERED: chlordiazePOXIDE 25 MG CAP PO SCH (21:00)
[2023-06-21] MEDS: hydrOXYzine pamoate 25 MG CAP PO PRN (21:11)
[2023-06-22] MEDS: IBUPROFEN 600 MG TAB PO PRN (05:52)
[2023-06-22] MEDS: hydrOXYzine pamoate 25 MG CAP PO PRN (05:52)
[2023-06-22] MEDS: chlordiazePOXIDE 25 MG CAP PO SCH (08:16)
[2023-06-22] MEDS: NICOTINE GUM (POLACRILEX) 2 MG GUM BUCCAL PRN ×5 (08:18→20:07)
[2023-06-22] MEDS ORDERED: SERTRALINE 50 MG TAB PO STA (11:03)
--- NOTE | 2023-06-22 12:55 | P.PN ---
Progress Note - Text Progress Note Date: 06/22/23 Interval History: Patient was seen resting in bed and was directable and agreeable to speak with contract technical writer in his room. The patient is currently reporting that he is feeling better. He is denying any suicidal or homicidal ideation, intention, or plan today. He is not reporting any auditory or visual hallucinations. He is denying any paranoia or delusions. He has been adherent with his medication is not reporting any significant side effects. He does express that he is uncertain as to where he would be going after this admission. He reports no issues regarding sleep was appetite. Mental Status Exam: General Appearance: Patient appears to be stated age is alert, directable, and cooperative. Behavior: Patient is calmly seated upright in his chair without any agitated behavior. Speech: Patient's speech is fluent and nonpressured. Mood/Affect: Mood is "feeling much better." Affect is bright Suicidality/Homicidality: Patient denies any current suicidal or homicidal ideation. Perceptions: Patient denies any visual hallucinations he does endorse auditory hallucinations. Though content/process: There is no evidence of any delusional thought content and thought process is linear and goal-directed. Memory and concentration: AOX3, grossly intact for the purposes of this session Judgment and insight: Improving mildly Vital Signs Temp 98.1 F 06/22/23 00:00 Pulse 65 06/22/23 00:00 Resp 18 06/22/23 00:00 BP 136/91 06/22/23 00:00 Pulse Ox 98 06/22/23 00:00 FiO2 Laboratory Results - Last 24 Hours 06/21/23 06/21/23 08:27 08:[address] Glu mg/dL 105 Hemoglobin A1c 5.3 Triglycerides 93.10 Cholesterol 128.00 LDL Cholesterol, Calc 31.7 VLDL Cholesterol, Calc 18.62 HDL Cholesterol 77.70 H Cholesterol/HDL Ratio 1.65 Assessment Bipolar disorder, depressed episode Methamphetamine use disorder in early remission Heroin Use Disorder, in remission Tobacco Use Disorder cannabis use disorder Plan: -Patient continues to meet criteria for inpatient psychiatric admission for symptom stabilization and safety. Patient has signed adult voluntary form and medication consent and was placed in patient's chart. -Medications: Increase Thorazine to 25 mg by mouth twice a day and 50 mg at bedtime for mood stabilization Taper Librium to 10 mg by mouth twice a day -When necessary Vistaril and Haldol for agitation/aggression. -NRT - nicotine patch -SW on board for discharge planning. Encouraged the patient to participate in milieu.
[2023-06-22] MEDS: chlorproMAZINE 25 MG TAB PO SCH (14:29)
[2023-06-22] MEDS ORDERED: chlorproMAZINE 25 MG TAB PO SCH (21:00)
[2023-06-23] MEDS: SERTRALINE 50 MG TAB PO SCH (08:04)
[2023-06-23] MEDS: chlorproMAZINE 25 MG TAB PO SCH ×2 (08:04→14:36)
[2023-06-23] MEDS: NICOTINE GUM (POLACRILEX) 2 MG GUM BUCCAL PRN ×5 (08:05→19:37)
--- NOTE | 2023-06-23 14:07 | P.PN ---
Subjective Progress Note Date: 06/23/23 Principal diagnosis: Assessment Bipolar disorder, depressed episode Methamphetamine use disorder in early remission Heroin Use Disorder, in remission Tobacco Use Disorder cannabis use disorder Patient came readily to talk to me in the office The patient is currently reporting that he is feeling better. He is denying any suicidal or homicidal ideation, intention, or plan today. He is not reporting any auditory or visual hallucinations. He is denying any paranoia or delusions. He has been adherent with his medication is not reporting any significant side effects. He does express that he is uncertain as to where he would be going after this admission. He reports no issues regarding sleep was appetite. His main complaint is that he slept all night and couldn't wake up till almost no. He takes Thorazine during the day twice and then at night and son medicine is on that would make him that sleepy he reports that in the past he took 50 of Seroquel and he slept really well but that B much to [place] to stabilize his moods. Mental Status Exam: Reasonable self-care General Appearance: Patient appears to be stated age is alert, directable, and cooperative. Behavior: Patient is calmly seated upright in his chair without any agitated behavior. Speech: Slightly pressured Mood/Affect: Mood is "feeling much better." Affect is bright Suicidality/Homicidality: Patient denies any current suicidal or homicidal ideation. Perceptions: Patient denies any visual hallucinations he does endorse auditory hallucinations. Though content/process: There is no evidence of any delusional thought content and thought process is linear and goal-directed. Memory and concentration: AOX3, grossly intact for the purposes of this session Judgment and insight: Improving mildly Assessment: I think he is getting some benefit from the 100 mg a day of the Thorazine but carries a high incidence of tardive dyskinesia and is quite sedating Plan: -Patient continues to meet criteria for inpatient psychiatric admission for symptom stabilization and safety. Patient has signed adult voluntary form and medication consent and was placed in patient's chart. -Medications: Discontinue Thorazine and replaced with Abilify 5 which is not sedating and the Seroquel 50 which she reports has worked well without subsequent sedation however that would be too low to control the movements Taper Librium to 10 mg by mouth twice a day -When necessary Vistaril and Haldol for agitation/aggression. -NRT - nicotine patch -SW on board for discharge planning. Encouraged the patient to participate in milieu. Objective - Vital Signs Vital signs: Vital Signs Temp 98.1 F 06/22/23 00:00 Pulse 65 06/22/23 00:00 Resp 18 06/22/23 00:00 BP 136/91 06/22/23 00:00 Pulse Ox 98 06/22/23 00:00 FiO2 - Labs CBC & Chem 7: 06/21/23 08:27 06/21/23 08:27
--- NOTE | 2023-06-23 14:25 | P.PN ---
Subjective Progress Note Date: 06/23/23 Principal diagnosis: Assessment Bipolar disorder, depressed episode Methamphetamine use disorder in early remission Heroin Use Disorder, in remission Tobacco Use Disorder cannabis use disorder . The patient's blood pressure has been climbing slowly is still not dangerous that he assures me was taking lisinopril at home and we looked on the chart we saw that was the case (restart Objective - Vital Signs Vital signs: Vital Signs Temp 98.1 F 06/22/23 00:00 Pulse 65 06/22/23 00:00 Resp 18 06/22/23 00:00 BP 136/91 06/22/23 00:00 Pulse Ox 98 06/22/23 00:00 FiO2 - Labs CBC & Chem 7: 06/21/23 08:27 06/21/23 08:27
[2023-06-23] MEDS: LISINOPRIL-HCTZ 20-25 MG 1 EACH TAB PO SCH (15:01)
[2023-06-23 18:38] VITALS: TEMP 98.2
[2023-06-23] MEDS: QUEtiapine 50 MG TAB PO SCH (20:49)
--- NOTE | 2023-06-24 08:17 | P.PN ---
Subjective Progress Note Date: 06/24/23 Principal diagnosis: Assessment Bipolar disorder, depressed episode Methamphetamine use disorder in early remission Heroin Use Disorder, in remission Tobacco Use Disorder cannabis use disorder Patient came readily to talk to me in the office The patient is currently reporting that he is feeling better. He is denying any suicidal or homicidal ideation, intention, for the past 3 days. He is not reporting any auditory or visual hallucinations. He is denying any paranoia or delusions. He has been adherent with his medication is not reporting any significant side effects. He does express that he is uncertain as to where he would be going after this admission. He reports a good appetite. He said that he has not is sleepy this morning and see was on the previous medication we have not yet given up many of the Abilify so we will see how he tolerates that. He says he does well on the Seroquel 50 at night he gets him to sleep without making him groggy all day Mental Status Exam: Reasonable self-care General Appearance: Patient appears to be stated age is alert, directable, and cooperative. Behavior: Patient is calmly seated upright in his chair without any agitated behavior. Speech: Normal in intensity speed and volume Mood/Affect: Mood is "feeling much better." Affect is bright Suicidality/Homicidality: Patient denies any current suicidal or homicidal ideation. Perceptions: Patient denies any visual hallucinations he does endorse auditory hallucinations. Though content/process: There is no evidence of any delusional thought content and thought process is linear and goal-directed. Memory and concentration: AOX3, the patient good attention Judgment and insight: Improving Assessment: At least the sleep issue is better will see how he does on the Abilify Plan: -Patient continues to meet criteria for inpatient psychiatric admission for symptom stabilization and safety. Patient has signed adult voluntary form and medication consent and was placed in patient's chart. -Medications: We discontinued Thorazine and replaced with Abilify 5 which is not sedating and the Seroquel 50 which she reports has worked well without subsequent sedation however that would be too low to control the movements Taper Librium to 10 mg by mouth twice a day -When necessary Vistaril and Haldol for agitation/aggression. -NRT - nicotine patch -SW on board for discharge planning. Encouraged the patient to participate in milieu. Objective - Vital Signs Vital signs: Vital Signs Temp 98.2 F 06/23/23 14:00 Pulse 85 06/23/23 14:00 Resp 18 06/22/23 00:00 BP 211/113 06/23/23 14:00 Pulse Ox 96 06/23/23 14:00 FiO2 - Labs CBC & Chem 7: 06/21/23 08:27 06/21/23 08:27
[2023-06-24] MEDS: LISINOPRIL-HCTZ 20-25 MG 1 EACH TAB PO SCH (08:49)
[2023-06-24] MEDS: ARIPiprazole 5 MG TAB PO SCH (08:49)
[2023-06-24] MEDS: SERTRALINE 50 MG TAB PO SCH (08:49)
[2023-06-24] MEDS: NICOTINE GUM (POLACRILEX) 2 MG GUM BUCCAL PRN ×6 (10:59→20:30)
[2023-06-24] MEDS: QUEtiapine 50 MG TAB PO SCH (20:30)
[2023-06-25 06:51] VITALS: BP 140/71; PULSE 59; RESP 16
[2023-06-25] MEDS: LISINOPRIL-HCTZ 20-25 MG 1 EACH TAB PO SCH (08:12)
[2023-06-25] MEDS: ARIPiprazole 5 MG TAB PO SCH (08:12)
[2023-06-25] MEDS: SERTRALINE 50 MG TAB PO SCH (08:12)
[2023-06-25] MEDS: NICOTINE GUM (POLACRILEX) 2 MG GUM BUCCAL PRN ×2 (08:18→11:46)
--- NOTE | 2023-06-25 10:59 | P.DS ---
Providers Date of admission: 06/20/23 04:17 Expected date of discharge: 06/25/23 Attending physician: Darian Farah MD Primary care physician: Stated None - Discharge Diagnosis(es) (1) Bipolar disorder current episode depressed Current Visit: Yes Status: Acute Priority: High (2) Cannabis use disorder Current Visit: Yes Status: Chronic Priority: Medium (3) Methamphetamine use disorder, mild, in early remission Current Visit: Yes Status: Chronic Priority: Medium (4) Tobacco use disorder Current Visit: Yes Status: Chronic Priority: Low (5) Heroin use disorder, moderate, in early remission Current Visit: Yes Status: Resolved Priority: Low Hospital Course: Admission HPI: Patient is a 38-year-old single, unemployed, homeless, male with a significant history of methamphetamine use disorder who presents to the hospital on 06/20/2023 for suicidal ideation without a plan. Patient presented to the hospital in 06/20/2023 for suicidal ideation without a plan. The patient was recently hospitalized on our psychiatric unit from 05/24/2023 - 05/29/2023. As per CPS report, the patient was reporting suicidal ideation and experiencing mood congruent auditory hallucinations that were telling him that he was "worthless and did not belong." He has also been nonadherent with any outpatient follow-up appointments. The patient also reportedly admitted to using methamphetamines and drinking heavily prior to this admission. The patient signed himself voluntarily on to the psychiatric unit. This provider attempted to interview the patient however he did not wish to speak to the provider today stating that he is "too tired." He refuses the psychiatric interview. Patient states that he has been previously diagnosed diagnosed with bipolar disorder, polysubstance abuse, and psychosis. The patient has had previous trials of Geodon, trazodone, Risperdal, Cymbalta, Wellbutrin, and Zyprexa. He was last discharged from our psychiatric unit this past month on a regimen of Seroquel and Zoloft. He has had multiple inpatient psychiatric hospitalizations. He is nonadherent with any outpatient psychiatric follow-up. He was supposed to follow with [facility]. Patient has attempted suicide once prior attempting to hang himself. Hospital course: Upon admission to the unit patient was initially presenting as somnolent, depressed, and suicidal. Patient was however directable and agreeable to commence treatment. Patient got along well with other patients on the unit and followed unit protocol. Patient was compliant with the medications and denied any side effects throughout hospital course. Patient was started on librium for alcohol withdrawal. He was transitioned to thorazine for management of mood/ag. He expressed oversedation on this medication and was transitioned to seroquel and zoloft. Patient spoke of his stressors and engaged in therapy both group and individual. Patient was also seen by medical team for history and physical exam. The patient displayed improvement in mood and began participating in group and milieu activities more. He also reported improved sleep, mood, appetite, and future orientation. He expresses that a huge problem of his is is his lack of transportation and therefore he has been unable to follow-up appropriately. He also acknowledges his substance use contributes to his poor mental health. On the day of discharge patient reports no suicidal or homicidal ideation, intention, and/or plan. He reports no auditory or visual hallucinations. Patient endorsed wanting to live for his health and family. The patient denied any access to guns or weapons. Patient denied any paranoia and did not endorse any delusions. Patient does have a significant history of substance abuse however was counseled on abstaining from all substances including tobacco, alcohol, marijuana, and all illicit drugs. Patient was offered however declined inpatient substance-abuse rehab. Patient was also counseled on the medications and need for regular compliance and was encouraged to follow-up with their outpatient appointment for mental health and also for primary care. As the patient no longer met criteria for continued inpatient psychiatric hospitalization, he was subsequently discharged after appropriate safety planning. Mental status exam: General Appearance: Patient appears to be stated age is alert, pleasant, and cooperative. Patient is in no acute distress and has fair hygiene and grooming Behavior: Patient is calmly seated without any agitated behavior. Speech: Patient's speech is fluent and nonpressured. Mood/Affect: Patient reports their mood is "feeling really good", affect is congruent and euthymic to bright. Suicidality/Homicidality: Patient denies having any suicidal or homicidal ideation intent or plan. Perceptions: Patient denies any auditory or visual hallucinations. Though content/process: There is no evidence of any delusional thought content and thought process is linear and goal-directed. Patient is future oriented. Memory and concentration: AOX3, grossly intact for the purposes of this session. Can spell "WORLD" backwards correctly. Judgment and insight: Improved with guarded prognosis Impression: Bipolar disorder, depressed episode Methamphetamine use disorder in early remission Heroin Use Disorder, in remission Tobacco Use Disorder cannabis use disorder Plan: -Continue with discharge today as patient has improved and stabilized psychiatrically and is not currently an imminent threat to himself and/or others. Patient will remain at chronically elevated risk for harm to self and/or others due to his polysubstance abuse, nonadherent to treatment, and homelessness. -Continue medications: Seroquel 100 mg by mouth at bedtime for insomnia/mood/mood stabilization Zoloft 50 mg daily for depression/anxiety -Patient was counseled on the need for medication compliance and appropriate follow-up at mental health and also primary care for medical issues. Patient verbalized understanding and agreed. -Social work to arrange for and conduct family meeting to ensure safety upon discharge and answer any questions/concerns. Social work also to arrange for patients follow up appointments with [facility] for psychiatric care along with follow up with primary care provider. -Patient counseled on abstaining from recreational drugs and marijuana and alcohol. Was informed/educated on the adverse effects on their physical and mental health. Patient verbally agreed and understood. Patient was offered substance abuse treatment however declined at this time. -Patient was instructed to return to the hospital or seek immediate medical care if their psychiatric or medical symptoms do worsen or reoccur. -Psychoeducation and supportive therapy provided to patient. Risks and benefits of pharmacological treatment versus the risks and benefits of nontreatment weighed and discussed. Informed consent discussion held. Common side effects of psychotropics discussed such as, but not limited to headache, GI disturbance, sexual dysfunction, movement disorders, sedation, and orthostatic hypotension. Life threatening and blackbox warnings of prescribed medications also discussed. Potential risks of operating a vehicle or heavy machinery discussed with patient at length. Advised on importance of compliance and a reliable and responsible manner. Patient advised to review FDA consumer labeling of all medications prior to taking. Patient verbalized understanding of potential risks, and agrees with current treatment plan. Patient advised to medically contact physician/emergency personnel if any acute changes in condition occur. Vital Signs Temp 98.2 F 06/23/23 14:00 Pulse 59 L 06/25/23 06:50 Resp 16 06/25/23 06:50 BP 140/71 06/25/23 06:50 Pulse Ox 98 06/25/23 06:50 FiO2 Intake & Output 06/24/23 06/25/23 06/25/23 18:59 06:59 18:59 Weight 76.3 kg Laboratory Results WBC 6.1 k/uL (3.8-10.6) 06/21/23 08:27 RBC 4.82 m/uL (4.30-5.90) 06/21/23 08:27 Hgb 15.5 gm/dL (13.0-17.5) 06/21/23 08:27 Hct 45.6 % (39.0-53.0) 06/21/23 08:27 MCV 94.5 fL (80.0-100.0) 06/21/23 08:27 MCH 32.1 pg (25.0-35.0) 06/21/23 08:27 MCHC 34.0 g/dL (31.0-37.0) 06/21/23 08:27 RDW 14.3 % (11.5-15.5) 06/21/23 08:27 Plt Count 180 k/uL (150-450) 06/21/23 08:27 MPV 8.7 06/21/23 08:27 Neutrophils % 60 % 06/21/23 08:27 Lymphocytes % 25 % 06/21/23 08:27 Monocytes % 8 % 06/21/23 08:27 Eosinophils % 4 % 06/21/23 08:27 Basophils % 1 % 06/21/23 08:27 Neutrophils # 3.7 k/uL (1.3-7.7) 06/21/23 08:27 Lymphocytes # 1.5 k/uL (1.0-4.8) 06/21/23 08:27 Monocytes # 0.5 k/uL (0-1.0) 06/21/23 08:27 Eosinophils # 0.3 k/uL (0-0.7) 06/21/23 08:27 Basophils # 0.0 k/uL (0-0.2) 06/21/23 08:27 Sodium 135 mmol/L (137-145) L 06/21/23 08:27 Potassium 4.0 mmol/L (3.5-5.1) 06/21/23 08:27 Chloride 104 mmol/L (98-107) 06/21/23 08:27 Carbon Dioxide 26 mmol/L (22-30) 06/21/23 08:27 Anion Gap 5 mmol/L 06/21/23 08:27 BUN 18 mg/dL (9-20) 06/21/23 08:27 Creatinine 1.16 mg/dL (0.66-1.25) 06/21/23 08:27 Est GFR (CKD-EPI)AfAm >90 (>60 ml/min/1.73 sqM) 06/21/23 08:27 Est GFR (CKD-EPI)NonAf 81 (>60 ml/min/1.73 sqM) 06/21/23 08:27 Glucose 107 mg/dL (74-99) H 06/21/23 08:[address] Glu mg/dL 105 mg/dL 06/21/23 08:27 Hemoglobin A1c 5.3 % (<=6.0) 06/21/23 08:27 Calcium 8.2 mg/dL (8.4-10.2) L 06/21/23 08:27 Total Bilirubin 0.9 mg/dL (0.2-1.3) 06/21/23 08:27 Conjugated Bilirubin 0.0 mg/dL (0.0-0.3) 06/21/23 08:27 Unconjugated Bilirubin 0.8 mg/dL (0.0-1.1) 06/21/23 08:27 Delta Bilirubin 0.1 mg/dL (0.0-0.2) 06/21/23 08:27 AST 90 U/L (17-59) H 06/21/23 08:27 ALT 112 U/L (4-49) H 06/21/23 08:27 Alkaline Phosphatase 108 U/L (38-126) 06/21/23 08:27 Total Protein 6.7 g/dL (6.3-8.2) 06/21/23 08:27 Albumin 3.4 g/dL (3.5-5.0) L 06/21/23 08:27 Triglycerides 93.10 mg/dL (0.00-149.00) 06/21/23 08:27 Cholesterol 128.00 mg/dL (0.00-200.00) 06/21/23 08:27 LDL Cholesterol, Calc 31.7 mg/dL (0.0-131.0) 06/21/23 08:27 VLDL Cholesterol, Calc 18.62 mg/dL (5.00-40.00) 06/21/23 08: HDL Cholesterol 77.70 mg/dL (40.00-60.00) H 06/21/23 08:27 Cholesterol/HDL Ratio 1.65 Ratio 06/21/23 08: TSH 1.020 mIU/L (0.465-4.680) 06/21/23 08:27 Urine Color Yellow 06/20/23 08:00 Urine Appearance Clear (Clear) 06/20/23 08:00 Urine pH 5.5 (5.0-8.0) 06/20/23 08:00 Ur Specific [place] 1.020 (1.001-1.035) 06/20/23 08:00 Urine Protein Negative (Negative) 06/20/23 08:00 Urine Glucose (UA) Negative (Negative) 06/20/23 08:00 Urine Ketones Negative (Negative) 06/20/23 08:00 Urine Blood Trace (Negative) H 06/20/23 08:00 Urine Nitrite Negative (Negative) 06/20/23 08:00 Urine Bilirubin Negative (Negative) 06/20/23 08:00 Urine Urobilinogen <2.0 mg/dL (<2.0) 06/20/23 08:00 Ur Leukocyte Esterase Negative (Negative) 06/20/23 08:00 Urine Opiates Screen Negative (Negative) 06/20/23 08:00 Urine Methadone Screen Negative (Negative) 06/20/23 08:00 Ur Propoxyphene Screen Negative (Negative) 06/20/23 08:00 Urine Barbiturates Negative (Negative) 06/20/23 08:00 Ur Phencyclidine Scrn Negative (Negative) 06/20/23 08:00 Ur Amphetamine Screen Positive (Negative) A 06/20/23 08:00 U Benzodiazepines Scrn Negative (Negative) 06/20/23 08:00 Urine Cocaine Screen Negative (Negative) 06/20/23 08:00 U Cannabinoids Screen Positive (Negative) A 06/20/23 08:00 Urine Alcohol Negative (Negative) 06/20/23 08:00 Coronavirus (PCR) Not Detected (Not Detectd) 06/20/23 03:00 Allergies Allergy/AdvReac Type Severity Reaction Status Date / Time No Known Allergies Allergy Verified 06/19/23 21:27 Patient Condition at Discharge: Stable Plan - Discharge Summary Discharge Rx Participant: No New Discharge Prescriptions: New QUEtiapine [SEROquel] 100 mg PO HS 30 Days #60 tab Lisinopril-Hctz 20-25 mg [Zestoretic 20-25] 1 each PO DAILY 30 Days #30 tab Sertraline [Zoloft] 50 mg PO DAILY 30 Days #30 tab Continue Ibuprofen [Motrin] 600 mg PO Q6HR PRN tab PRN Reason: Moderate Pain (Scale 4 To 6) Folic Acid 1 mg PO DAILY 30 Days #30 tab amLODIPine [Norvasc] 5 mg PO DAILY 30 Days #30 tab Thiamine [Vitamin B-1] 100 mg PO DAILY 30 Days #30 tab Discontinued QUEtiapine [SEROquel] 50 mg PO HS 30 Days #30 tab Sertraline [Zoloft] 50 mg PO DAILY 30 Days #30 tab Nicotine 14Mg/24Hr Patch [Habitrol] 1 patch TRANSDERM DAILY 14 Days #14 patch Lisinopril-Hctz 20-25 mg [Zestoretic 20-25] 1 each PO DAILY 30 Days #30 tab Discharge Medication List Folic Acid 1 mg PO DAILY 30 Days #30 tab 05/29/23 [Rx] Ibuprofen [Motrin] 600 mg PO Q6HR PRN tab 05/29/23 [Rx] Thiamine [Vitamin B-1] 100 mg PO DAILY 30 Days #30 tab 05/29/23 [Rx] amLODIPine [Norvasc] 5 mg PO DAILY 30 Days #30 tab 05/29/23 [Rx] Lisinopril-Hctz 20-25 mg [Zestoretic 20-25] 1 each PO DAILY 30 Days #30 tab 06/25/23 [Rx] QUEtiapine [SEROquel] 100 mg PO HS 30 Days #60 tab 06/25/23 [Rx] Sertraline [Zoloft] 50 mg PO DAILY 30 Days #30 tab 06/25/23 [Rx] Follow up Appointment(s)/Referral(s): [facility] [NON-STAFF] - 1 Week Patient Instructions/Handouts: How to Stop Smoking (DC), Depression (DC), Alcohol Intoxication (DC) Activity/Diet/Wound Care/Special Instructions: Avoid the use of street drugs and alcohol. Take all medications as prescribed. When you are in need of refills on your medications, please contact your medical provider and/or outpatient psychiatrist/provider to have this done. Please go to your scheduled outpatient appointment for aftercare treatment. If symptoms return or become worse, call the crisis line at and/or go to the nearest emergency room for evaluation. National Suicide Hotline 988. Discharge Disposition: HOME SELF-CARE
== END 2023-06-25 12:05 | disposition home or self-care (01) | DRG 753 ==
LOC: EC 21:09 → 3MHU 06-20 04:17
PROVIDERS: ADMIT Psychiatry & Neurology Psychiatry; ATTEND Psychiatry & Neurology Psychiatry
DX: F31.30 Bipolar disorder, current episode depressed, mild or moderate severity, unspecified (principal); F90.9 Attention-deficit hyperactivity disorder, unspecified type; G47.00 Insomnia, unspecified; I10 Essential (primary) hypertension; F15.11 Other stimulant abuse, in remission; F17.200 Nicotine dependence, unspecified, uncomplicated; R45.851 Suicidal ideations; F12.10 Cannabis abuse, uncomplicated; F11.21 Opioid dependence, in remission; F10.239 Alcohol dependence with withdrawal, unspecified; F10.229 Alcohol dependence with intoxication, unspecified; Z20.822 Contact with and (suspected) exposure to COVID-19; Z56.0 Unemployment, unspecified; Z59.00 Homelessness unspecified; Z59.82 Transportation insecurity; Z79.899 Other long term (current) drug therapy; Z80.0 Family history of malignant neoplasm of digestive organs; Z91.51 Personal history of suicidal behavior
CPT/HCPCS: 80053; 80061; 80306; 81001; 82075; 82248; 83036; 84443; 85025; 87635; 99285

== ENCOUNTER 2023-06-26 00:20 | Emergency (ER) | payer OTHER ==
[2023-06-26] MEDS ORDERED: SODIUM CHLORIDE 0.9% 1,000 ML IV ONE (00:30)
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
[2023-06-26 00:51] LABS: Glucose,Whole Blood 120 mg/dL (70-110)
[2023-06-26 01:34] LABS: Basophils % (A) 0 %; Eosinophils # (A) 0.1 k/uL (0-0.7); Eosinophils % (A) 2 %; HCT 43.7 % (39.0-53.0); HGB 15.2 gm/dL (13.0-17.5); Lymphocytes # (A) 1.6 k/uL (1.0-4.8); Lymphocytes % (A) 20 %; MCH 32.6 pg (25.0-35.0); MCHC 34.7 g/dL (31.0-37.0); MCV 93.9 fL (80.0-100.0); Mean Platelet Volume 8.4; Monocytes # (A) 0.6 k/uL (0-1.0); Monocytes % (A) 8 %; Neutrophils # (A) 5.7 k/uL (1.3-7.7); Neutrophils % (A) 68 %; Platelet Count 206 k/uL (150-450); RBC 4.65 m/uL (4.30-5.90); RDW 14.1 % (11.5-15.5); WBC 8.4 k/uL (3.8-10.6)
[2023-06-26 02:01] LABS: ALT 190 U/L (4-49); AST 143 U/L (17-59); African American GFR (CKD) 67 (>60 ml/min/1.73 sqM); Albumin 3.9 g/dL (3.5-5.0); Alkaline Phosphatase 118 U/L (38-126); Anion Gap 13 mmol/L; Blood Urea Nitrogen 27 mg/dL (9-20); Calcium 8.7 mg/dL (8.4-10.2); Carbon Dioxide 21 mmol/L (22-30); Chloride 105 mmol/L (98-107); Glucose 91 mg/dL (74-99); INR 0.9 (<1.2); Non-African American GFR(CKD) 58 (>60 ml/min/1.73 sqM); Potassium 4.3 mmol/L (3.5-5.1); Sodium 139 mmol/L (137-145); Total Bilirubin 0.5 mg/dL (0.2-1.3); Total Protein 7.4 g/dL (6.3-8.2)
[2023-06-26 02:04] LABS: Partial Thromboplastin Time 20.8 sec (22.0-30.0)
[2023-06-26 02:26] LABS: Alcohol 132 mg/dL
--- NOTE | 2023-06-26 02:46 | CT ---
EXAM: CT Head Without Intravenous Contrast CLINICAL HISTORY: ITS.REASON CT Reason: Altered mental status TECHNIQUE: Axial computed tomography images of the head/brain without intravenous contrast. CTDI is 49.1 mGy and DLP is 1173.4 mGy-cm. This CT exam was performed using one or more of the following dose reduction techniques: automated exposure control, adjustment of the mA and/or kV according to patient size, and/or use of iterative reconstruction technique. COMPARISON: 05/24/2023 FINDINGS: Brain: No hemorrhage, extra-axial fluid collection, mass effect, or edema. Ventricles: Unremarkable. Bones/joints: Unremarkable. No fracture. Soft tissues: Unremarkable. Sinuses: No acute sinusitis. Mastoid air cells: Unremarkable as visualized. IMPRESSION: 1. No acute intracranial abnormality.
[2023-06-26 05:38] VITALS: BP 105/51; PULSE 65; RESP 16; TEMP 98.6
== END 2023-06-26 05:43 | disposition home or self-care (01) ==
LOC: EC 00:20
DX: F32.A Depression, unspecified (principal); R45.851 Suicidal ideations; F10.129 Alcohol abuse with intoxication, unspecified; I10 Essential (primary) hypertension; F17.200 Nicotine dependence, unspecified, uncomplicated; Y90.6 Blood alcohol level of 120-199 mg/100 ml
CPT/HCPCS: 36415; 93005; 80053; 85025; 85610; 85730; 70450; 99285; 96360; G0480; 80320

== ENCOUNTER 2023-07-12 08:30 | Inpatient (IN) | payer MEDICAID, OTHER ==
--- NOTE | 2023-07-12 09:19 | ED ---
General Adult HPI - General Chief complaint: Psychiatric Symptoms Stated complaint: Suicidal Time Seen by Provider: 07/12/23 08:32 Source: patient, EMS, RN notes reviewed Mode of arrival: EMS Limitations: no limitations - History of Present Illness Initial comments: Patient is a pleasant 38-year-old male presenting to the emergency department with concerns with depression and suicidal thoughts. Patient has chronic depression however now is having thoughts of hurting himself. Patient has plan to stab himself. No homicidal thoughts. Patient did drink alcohol yesterday. 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 No physical complaints. Patient does have auditory hallucinations. - Related Data Previous Rx's Medication Instructions Recorded Lisinopril-Hctz 20-25 mg 1 each PO DAILY 30 Days #30 tab 06/25/23 [Zestoretic 20-25] QUEtiapine [SEROquel] 100 mg PO HS 30 Days #60 tab 06/25/23 Sertraline [Zoloft] 50 mg PO DAILY 30 Days #30 tab 06/25/23 Allergies Allergy/AdvReac Type Severity Reaction Status Date / Time No Known Allergies Allergy Verified 07/12/23 12:49 Review of Systems ROS Statement: Those systems with pertinent positive or pertinent negative responses have been documented in the HPI. ROS Other: All systems not noted in ROS Statement are negative. Constitutional: Denies: fever Eyes: Denies: eye pain ENT: Denies: ear pain Respiratory: Denies: cough Cardiovascular: Denies: chest pain Endocrine: Denies: fatigue Gastrointestinal: Denies: abdominal pain Psychiatric: Reports: auditory hallucinations Past Medical History Past Medical History: Hypertension Additional Past Medical History / Comment(s): Migraines, L lower extremity cellulitis/sepsis, pilonidal cysts/abscesses. History of Any Multi-Drug Resistant Organisms: MRSA Date of last positivie culture/infection: 07/26/21 MDRO Source:: Right Testicle Past Surgical History: Cholecystectomy, Orthopedic Surgery Additional Past Surgical History / Comment(s): I&D testicle, R tib/fib fracture repair with hardware. Past Anesthesia/Blood Transfusion Reactions: No Reported Reaction Past Psychological History: ADD/ADHD, Anxiety, Depression Smoking Status: Current every day smoker Past Alcohol Use History: Occasional Past Drug Use History: Marijuana - Past Family History Mother Family Medical History: Cancer Additional Family Medical History / Comment(s): cervical cancer Father Family Medical History: Cancer Additional Family Medical History / Comment(s): Father in 1997 from lung and liver cancer General Exam Limitations: no limitations General appearance: alert, in no apparent distress Head exam: Present: atraumatic Eye exam: Present: normal appearance Neck exam: Present: normal inspection Respiratory exam: Present: normal lung sounds bilaterally Cardiovascular Exam: Present: regular rate, normal rhythm GI/Abdominal exam: Present: soft. Absent: tenderness Extremities exam: Present: normal inspection Neurological exam: Present: alert Psychiatric exam: Present: depressed Skin exam: Present: normal color Course Vital Signs 07/12/23 08:33 Temperature 98.6 F Pulse Rate 69 Respiratory 16 Rate Blood Pressure 198/122 O2 Sat by Pulse 99 Oximetry Medical Decision Making - Medical Decision Making Was pt. sent in by a medical professional or institution ( PA, ORGANIC GARDENING TEACHER, urgent care, hospital, or detention...) When possible be specific @ -No Did you speak to anyone other than the patient for history (EMS, parent, family, police, friend...)? What history was obtained from this source @ -No Did you review nursing and triage notes (agree or disagree)? Why? @ -I reviewed and agree with nursing and triage notes Were old charts reviewed (outside hosp., previous admission, EMS record, old EKG, old radiological studies, urgent care reports/EKG's, detention records)? Report findings @ -No old charts were reviewed Differential Diagnosis (chest pain, altered mental status, abdominal pain women, abdominal pain men, vaginal bleeding, weakness, fever, dyspnea, syncope, headache, dizziness, GI bleed, back pain, seizure, CVA, palpatations, mental health, musculoskeletal)? @ -Differential Mental Health Depression, anxiety, bipolar, psychosis, schizophrenia, borderline personality, situational depression, adjustment disorder, behavioral disorder, brain tumor, malingering, substance abuse, encephalopathy, medication reaction, dementia, hypothyroidism, degenerative neurologic disorder, lupus.... This is not meant to be all-inclusive list EKG interpreted by me (3pts min.). @ -As above X-rays interpreted by me (1pt min.). @ -None done CT interpreted by me (1pt min.). @ -None done U/S interpreted by me (1pt. min.). @ -None done What testing was considered but not performed or refused? (CT, X-rays, U/S, labs)? Why? @ -None What meds were considered but not given or refused? Why? @ -None Did you discuss the management of the patient with other professionals (professionals i.e. , PA, ORGANIC GARDENING TEACHER, lab, RT, psych nurse, director social, oceanography teacher, teacher, freedom of information officer, case management director)? Give summary @ -Patient seen by mental health nurse who discussed with psychiatrist with plans of admission Was smoking cessation discussed for >3mins.? @ -No Was critical care preformed (if so, how long)? @ -No Were there social determinants of health that impacted care today? How? (Homelessness, low income, unemployed, alcoholism, drug addiction, transportation, low edu. Level, literacy, decrease access to med. care, fdc, rehab)? @ -No Was there de-escalation of care discussed even if they declined (Discuss DNR or withdrawal of care, Hospice)? DNR status @ -No What co-morbidities impacted this encounter? (DM, HTN, Smoking, COPD, CAD, Cancer, CVA, ARF, Chemo, Hep., AIDS, mental health diagnosis, sleep apnea, morbid obesity)? @ -None Was patient admitted / discharged? Hospital course, mention meds given and route, prescriptions, significant lab abnormalities, going to OR and other pertinent info. @ -Patient will be admitted to mental health floor Undiagnosed new problem with uncertain prognosis? @ -No Drug Therapy requiring intensive monitoring for toxicity (Heparin, Nitro, Insulin, Cardizem)? @ -No Were any procedures done? @ -No Diagnosis/symptom? @ -Depression, suicidal ideation Acute, or Chronic, or Acute on Chronic? @ -Acute on chronic, acute Uncomplicated (without systemic symptoms) or Complicated (systemic symptoms)? @ -default Side effects of treatment? @ -No Exacerbation, Progression, or Severe Exacerbation? @ -No Poses a threat to life or bodily function? How? (Chest pain, [place], [place], pneumonia, PE, COPD, DKA, ARF, appy, cholecystitis, CVA, Diverticulitis, Homicidal, Suicidal, threat to staff... and all critical care pts) @ -No - Lab Data Lab Results 07/12/23 Range/Units 09:22 Urine Opiates Screen Not Detected (NotDetected) Ur Oxycodone Screen Not Detected (NotDetected) Urine Methadone Screen Not Detected (NotDetected) Ur Propoxyphene Screen Not Detected (NotDetected) Ur Barbiturates Screen Not Detected (NotDetected) U Tricyclic Antidepress Not Detected (NotDetected) Ur Phencyclidine Scrn Not Detected (NotDetected) Ur Amphetamines Screen Detected H (NotDetected) U Methamphetamines Scrn Not Detected (NotDetected) U Benzodiazepines Scrn Detected H (NotDetected) Urine Cocaine Screen Not Detected (NotDetected) U Marijuana (THC) Screen Not Detected (NotDetected) Disposition Clinical Impression: Depression, Suicidal ideation Disposition: TRANSFER TO PSYCH HOSP/UNIT Is patient prescribed a controlled substance at d/c from ED?: No Referrals: None,Stated [Primary Care Provider] - 1-2 days Time of Disposition: 13:22
[2023-07-12 09:50] LABS: Amphetamine Screen,Urine Detected (NotDetected); Barbiturate Screen,Urine Not Detected (NotDetected); Benzodiazepines Screen,Urine Detected (NotDetected); Cocaine Screen,Urine Not Detected (NotDetected); Methadone Screen, Urine Not Detected (NotDetected); Opiate Screen,Urine Not Detected (NotDetected); Oxycodone Screen, Urine Not Detected (NotDetected); Phencyclidine Screen,Urine Not Detected (NotDetected); Tricyclic Antidepressant,Urine Not Detected (NotDetected); Urn Cannabinoid Scrn Not Detected (NotDetected)
[2023-07-12] MEDS ORDERED: MAGNESIUM HYDROXIDE 2,400 MG/30 ML CUP PO PRN (16:00)
[2023-07-12] MEDS ORDERED: MAG HYDROX/AL HYDROX/SIMETH 30 ML CUP PO PRN (16:00)
[2023-07-12] MEDS ORDERED: OLANZapine 5 MG TAB PO PRN (16:00)
[2023-07-12] MEDS ORDERED: OLANZapine 10 MG VIAL IM PRN (16:00)
[2023-07-12] MEDS ORDERED: hydrOXYzine HCL 50 MG/ML 1 ML VIAL IM PRN (16:04)
[2023-07-12] MEDS ORDERED: hydrOXYzine pamoate 25 MG CAP PO PRN (16:04)
[2023-07-12] MEDS: LISINOPRIL-HCTZ 20-25 MG 1 EACH TAB PO SCH (17:20)
[2023-07-12] MEDS: NICOTINE 21MG/24HR PATCH TRANSDERM SCH (17:20)
[2023-07-12] MEDS: QUEtiapine 50 MG TAB PO SCH (20:32)
[2023-07-13 08:28] LABS: Basophils % (A) 0 %; Eosinophils # (A) 0.2 k/uL (0-0.7); Eosinophils % (A) 3 %; HCT 45.2 % (39.0-53.0); HGB 15.4 gm/dL (13.0-17.5); Lymphocytes # (A) 1.3 k/uL (1.0-4.8); Lymphocytes % (A) 24 %; MCH 32.5 pg (25.0-35.0); MCV 95.9 fL (80.0-100.0); Mean Platelet Volume 8.1; Monocytes # (A) 0.5 k/uL (0-1.0); Monocytes % (A) 9 %; Neutrophils # (A) 3.3 k/uL (1.3-7.7); Neutrophils % (A) 61 %; Platelet Count 195 k/uL (150-450); RBC 4.72 m/uL (4.30-5.90); RDW 14.1 % (11.5-15.5); WBC 5.4 k/uL (3.8-10.6)
[2023-07-13] MEDS: SERTRALINE 50 MG TAB PO SCH (08:35)
[2023-07-13] MEDS: LISINOPRIL-HCTZ 20-25 MG 1 EACH TAB PO SCH (08:35)
[2023-07-13] MEDS: NICOTINE 21MG/24HR PATCH TRANSDERM SCH (08:35)
[2023-07-13 09:56] LABS: Chloride 102 mmol/L (98-107)
[2023-07-13 09:58] LABS: ALT 135 U/L (4-49); AST 145 U/L (17-59); African American GFR (CKD) >90 (>60 ml/min/1.73 sqM); Albumin 3.2 g/dL (3.5-5.0); Alkaline Phosphatase 102 U/L (38-126); Anion Gap 4 mmol/L; Blood Urea Nitrogen 13 mg/dL (9-20); Calcium 8.5 mg/dL (8.4-10.2); Carbon Dioxide 30 mmol/L (22-30); Glucose 95 mg/dL (74-99); Non-African American GFR(CKD) >90 (>60 ml/min/1.73 sqM); Potassium 3.7 mmol/L (3.5-5.1); Sodium 136 mmol/L (137-145); Total Bilirubin 0.4 mg/dL (0.2-1.3); Total Protein 6.5 g/dL (6.3-8.2)
[2023-07-13] MEDS ORDERED: LORazepam 1 MG TAB PO PRN (11:28)
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
[2023-07-13] MEDS: NICOTINE GUM (POLACRILEX) 2 MG GUM BUCCAL PRN ×3 (11:49→19:14)
[2023-07-13 15:55] LABS: Chol/HDL Ratio 1.69 Ratio; LDL Cholesterol,Calculated 37.5 mg/dL (0.0-131.0); VLDL Calculation 14.88 mg/dL (5.00-40.00)
--- NOTE | 2023-07-13 18:08 | P.MDCNMH ---
History of Present Illness H&P Date: 07/13/23 Chief Complaint: medical management 38 year old man with history of hypertension presented for mental health evaluation. Patient's only complaint is right pinky toe pain with some redness. Otherwise denies hyperlipidemia, diabetes, kidney disease, heart disease, liver disease. Gen: awake, alert HEENT: normocephalic, atraumatic, good hearing acuity, moist mucous membranes Resp: good air exchange, breathing comfortably with no accessory muscle use CVS: good distal perfusion x 4, GI: soft, NTTP, ND : no SPT, no CVAT, jones catheter not present MSK: no pitting edema, no clubbing Neuro: non-focal, moving all extremities Psych: cooperative, euthymic mood Assessment: Right toe abrasion with erythema Hypertension Plan: Patient is afebrile, 144/82, heart rate 68, 98% on room air. CBC is a marble. Basic metabolic panel shows sodium of 136. Liver function test shows elevation of AST to 145, elevation of ALT 135. Lipid panel shows elevated HDL to 75. Urine tox was positive for amphetamines, benzodiazepines. Covid was negative. Place Band-Aid on toe, apply triple antibiotic cream, change daily. This was discussed with nursing. Resume patient's lisinopril, hydrochlorothiazide Past Medical History Past Medical History: Hypertension Additional Past Medical History / Comment(s): Migraines, L lower extremity cellulitis/sepsis, pilonidal cysts/abscesses. History of Any Multi-Drug Resistant Organisms: MRSA Date of last positivie culture/infection: 07/26/21 MDRO Source:: Right Testicle Past Surgical History: Cholecystectomy, Orthopedic Surgery Additional Past Surgical History / Comment(s): I&D testicle, R tib/fib fracture repair with hardware. Past Anesthesia/Blood Transfusion Reactions: No Reported Reaction Past Psychological History: ADD/ADHD, Anxiety, Depression Additional Psychological History / Comment(s): Pt refuses to answer. Smoking Status: Current every day smoker Past Alcohol Use History: Occasional Additional Past Alcohol Use History / Comment(s): Pt started smoking in 1996 and is a ppd smoker, Pt smokes 1-2 ppd Past Drug Use History: Marijuana Additional Drug Use History / Comment(s): Pt states he no longer uses any drugs. Hasn't used meth in one month. Has drank prior to two days ago for almost a year. - Past Family History Mother Family Medical History: Cancer Additional Family Medical History / Comment(s): cervical cancer Father Family Medical History: Cancer Additional Family Medical History / Comment(s): Father in 1997 from lung and liver cancer Medications and Allergies Home Medications Medication Instructions Recorded Confirmed Type Lisinopril-Hctz 20-25 mg 1 each PO DAILY 30 Days #30 tab 06/25/23 07/12/23 Rx [Zestoretic 20-25] QUEtiapine [SEROquel] 100 mg PO HS 30 Days #60 tab 06/25/23 07/12/23 Rx Sertraline [Zoloft] 50 mg PO DAILY 30 Days #30 tab 06/25/23 07/12/23 Rx Allergies Allergy/AdvReac Type Severity Reaction Status Date / Time No Known Allergies Allergy Verified 07/12/23 12:49 Physical Exam Osteopathic Statement: *. No significant issues noted on an osteopathic structural exam other than those noted in the History and Physical/Consult. Vitals: Vital Signs Temp Pulse Resp BP Pulse Ox 07/13/23 08:37 68 144/82 07/13/23 06:52 97.8 F 60 18 150/86 07/12/23 19:13 77 20 176/97 98 Cranial Nerve Examination - Cranial Nerves Cranial Nerve II- Optic: Intact Cranial Nerve III- Oculomotor: Intact Cranial Nerve IV- Trochlear: Intact Cranial Nerve V- Trigeminal: Intact Cranial Nerve - Abducens: Intact Cranial Nerve VII- Facial: Intact Cranial Nerve VIII- Auditory: Intact Cranial Nerve IX- Glossopharyngeal: Intact Cranial Nerve X- Vagus: Intact Cranial Nerve XI- Accessory: Intact Cranial Nerve XII- Hypoglossal: Intact Results CBC & Chem 7: 07/13/23 07:58 07/13/23 07:58 Labs: Abnormal Lab Results - Last 24 Hours (Table) 07/13/23 Range/Units 07:58 Sodium 136 L (137-145) mmol/L AST 145 H (17-59) U/L ALT 135 H (4-49) U/L Albumin 3.2 L (3.5-5.0) g/dL HDL Cholesterol 75.60 H (40.00-60.00) mg/dL
[2023-07-13] MEDS: QUEtiapine 50 MG TAB PO SCH (19:53)
[2023-07-14] MEDS: BACITRACIN OINT 1 EACH PACKET TOPICAL SCH (10:31)
[2023-07-14] MEDS: NICOTINE 21MG/24HR PATCH TRANSDERM SCH ×2 (10:31→12:16)
[2023-07-14] MEDS: LISINOPRIL-HCTZ 20-25 MG 1 EACH TAB PO SCH ×2 (10:31→12:15)
[2023-07-14] MEDS: SERTRALINE 50 MG TAB PO SCH ×2 (10:31→12:16)
[2023-07-14] MEDS: NICOTINE GUM (POLACRILEX) 2 MG GUM BUCCAL PRN ×2 (12:16→15:58)
--- NOTE | 2023-07-14 13:33 | P.PN ---
Subjective Progress Note Date: 07/14/23 Principal diagnosis: IMPRESSIONS: Bipolar disorder, depressed episode Methamphetamine use disorder in early remission Opioid Use Disorder, in remission Nicotine dependence Benzodiazepine abuse alcohol abuse An attempt was made to evaluate the patient this morning Patient was laying in bed with a sheet Hernandez up to his chin Patient did not acknowledge when this interviewer tried to engage the patient in any conversation He was very angry abrupt and yelling Patient stated that he wanted to be left alone and is not interested in any conversation this time Following information is apparent from the chart which is added here for completeness: Patient presented to the hospital yesterday to the ER via EMS. Patient was complaining of depression and suicidal thoughts without plan to stab himself in the ER. Patient had apparently admitted to drinking alcohol however denied using any other drugs. Patient's urine drug seems positive for amphetamines and benzodiazepine. He claims after he started feeling depressed and angry and was drinking and then claims that she called the police who brought him into the hospital. CHEMICAL DEPENDENCY HISTORY: The patient reports smoking one and half packs of tobacco per day. He reports daily marijuana use. He reported binge drinking prior to this admission. Patient claims that he has been occasionally abusing Xanax on street. " The patient does have significant history of heroin abuse and methamphetamine abuse. Following his the mental status from the previous day MENTAL STATUS EXAM: General Appearance: Patient appears to be short in stature, unshaven, stated age is alert, directable, and attempts to cooperate. Patient appears to have disheveled hygiene and grooming. Behavior: Patient is sitting in the chair, without any acute distress fair eye contact. Speech: Patient's speech is fluent. Mood/Affect: Patient reports their mood is "depressed and anxious" affect is congruent Suicidality/Homicidality: Denies Perceptions: Denies Though content/process: Patient is logical, minimizing his alcohol use. Vague and evasive. Memory and concentration: Alert and oriented 3, fair attention span. Judgment and insight: poor and impulsive STRENGTHS/WEAKNESSES: Patient has good access to care, he currently is not homeless and lives with his mother. Weakness is that the patient engages in polysubstance abuse and is nonadherent with treatment. INTELLECT: average IMPRESSIONS: Bipolar disorder, depressed episode Methamphetamine use disorder in early remission Opioid Use Disorder, in remission Nicotine dependence Benzodiazepine abuse alcohol abuse We'll continue with the plan as recommended previously PLAN: -Patient is admitted under voluntary status to MHU for stabilization of psychiatric symptoms and safety. Patient signed adult voluntary form and medication consent and is placed in patient's chart. -Medications : Zoloft 50 mg daily for mood/anxiety, we'll continue to increase as tolerated. Seroquel 100 mg daily at bedtime for mood stabilization/insomnia. Vistaril when necessary for anxiety. Zyprexa PRN for agitation/aggression -CIWA protocol with Ativan PRN for ETOH withdrawal -Patient was informed of the risks, benefits and side effects of the medication, vision signed the medication consent form. -Internal Medicine consult to perform medical evaluation and physical. -NRT - nicotine patch -SW on board for discharge planning. Encourage patient to participate in groups to work on coping skills. Likely discharge next week once patient stabilizes and improves. 07/14/23 Bunny Coronel M.D. 07/14/2023 Objective - Vital Signs Vital signs: Vital Signs Temp 98.1 F 07/14/23 07:07 Pulse 64 07/14/23 12:00 Resp 18 07/14/23 07:07 BP 156/101 07/14/23 12:00 Pulse Ox 96 07/14/23 07:07 FiO2 - Labs CBC & Chem 7: 07/13/23 07:58 07/13/23 07:58 Labs: Abnormal Lab Results - Last 24 Hours (Table) 07/13/23 Range/Units 07:58 HDL Cholesterol 75.60 H (40.00-60.00) mg/dL
[2023-07-14] MEDS: QUEtiapine 50 MG TAB PO SCH (20:43)
[2023-07-15] MEDS: LISINOPRIL-HCTZ 20-25 MG 1 EACH TAB PO SCH (08:00)
[2023-07-15] MEDS: NICOTINE 21MG/24HR PATCH TRANSDERM SCH (08:00)
[2023-07-15] MEDS: SERTRALINE 50 MG TAB PO SCH (08:00)
[2023-07-15] MEDS: BACITRACIN OINT 1 EACH PACKET TOPICAL SCH (08:02)
[2023-07-15] MEDS: NICOTINE GUM (POLACRILEX) 2 MG GUM BUCCAL PRN ×3 (08:23→17:45)
--- NOTE | 2023-07-15 10:05 | P.PN ---
Subjective Progress Note Date: 07/15/23 Principal diagnosis: IMPRESSIONS: Bipolar disorder, depressed episode Methamphetamine use disorder in early remission Opioid Use Disorder, in remission Nicotine dependence Benzodiazepine abuse alcohol abuse SOAP note 07/15/23 The patient was somewhat more cooperative today He admits that he slept better and is feeling better He did not want to get into any discussion but was not as abrupt and temperamental He states that he is feeling better and that is not having any racing thoughts He denies any suicidal or homicidal ideations or thoughts MENTAL STATUS EXAM: General Appearance: Patient appears to be short in stature, unshaven, stated age is alert, directable, and attempts to cooperate. Patient appears to have disheveled hygiene and grooming. Behavior: Patient is sitting in the chair, without any acute distress fair eye contact. Speech: Patient's speech is fluent. Mood/Affect: Patient reports their mood is "depressed and anxious" affect is congruent Suicidality/Homicidality: Denies Perceptions: Denies Though content/process: Patient is logical, minimizing his alcohol use. Vague and evasive. Memory and concentration: Alert and oriented 3, fair attention span. Judgment and insight: poor and impulsive STRENGTHS/WEAKNESSES: Patient has good access to care, he currently is not homeless and lives with his mother. Weakness is that the patient engages in polysubstance abuse and is nonadherent with treatment. INTELLECT: average IMPRESSIONS: Bipolar disorder, depressed episode Methamphetamine use disorder in early remission Opioid Use Disorder, in remission Nicotine dependence Benzodiazepine abuse alcohol abuse We'll continue with the plan as recommended previously PLAN: -Patient is admitted under voluntary status to MHU for stabilization of psychiatric symptoms and safety. Patient signed adult voluntary form and medication consent and is placed in patient's chart. -Medications : Zoloft 50 mg daily for mood/anxiety, we'll continue to increase as tolerated. Seroquel 100 mg daily at bedtime for mood stabilization/insomnia. Vistaril when necessary for anxiety. Zyprexa PRN for agitation/aggression -CIWA protocol with Ativan PRN for ETOH withdrawal -Patient was informed of the risks, benefits and side effects of the medication, vision signed the medication consent form. -Internal Medicine consult to perform medical evaluation and physical. -NRT - nicotine patch -SW on board for discharge planning. Encourage patient to participate in groups to work on coping skills. Likely discharge next week once patient stabilizes and improves. Bunny Coronel M.D. 07/15/2023 Objective - Vital Signs Vital signs: Vital Signs Temp 97.7 F 07/15/23 06:40 Pulse 62 07/15/23 06:40 Resp 14 07/15/23 06:40 BP 150/82 07/15/23 06:40 Pulse Ox 96 07/14/23 07:07 FiO2 - Labs CBC & Chem 7: 07/13/23 07:58 07/13/23 07:58
[2023-07-15] MEDS: IBUPROFEN 600 MG TAB PO PRN (13:56)
[2023-07-15] MEDS: QUEtiapine 50 MG TAB PO SCH (20:35)
[2023-07-16] MEDS: BACITRACIN OINT 1 EACH PACKET TOPICAL SCH (08:15)
[2023-07-16] MEDS: SERTRALINE 50 MG TAB PO SCH (08:15)
[2023-07-16] MEDS: LISINOPRIL-HCTZ 20-25 MG 1 EACH TAB PO SCH (08:16)
[2023-07-16] MEDS: NICOTINE 21MG/24HR PATCH TRANSDERM SCH (08:16)
[2023-07-16] MEDS: NICOTINE GUM (POLACRILEX) 2 MG GUM BUCCAL PRN ×3 (09:39→18:23)
--- NOTE | 2023-07-16 10:39 | P.PN ---
Progress Note - Text Progress Note Date: 07/16/23 Interval history: Patient was seen today wondering home and agreeable speech clinician. Patient st ates that he is doing a bit better with regard to his mood and anxiety. States that she had no issues over the weekend. States that he spoke with his mother and apologizes and states that he is likely able to go back home with her. Claims that he is sleeping fairly in a time, has been going to groups. Attempted to participate on the milieu. He seems fairly pleasant and cooperative today. He is denying any changes in his appetite. At this time he is denying any auditory or visual hallucinations. Denying any suicidal or homicidal ideations intent or plan. Denying any side effects to medications. Mental status examination: General Appearance: Patient appears to be short in stature, unshaven, stated age is alert, directable, and attempts to cooperate. Patient appears to have mildly improving hygiene and grooming. Behavior: Patient is sitting in the chair, without any acute distress fair eye contact. Speech: Patient's speech is fluent. Mood/Affect: Patient reports their mood is "better" affect is congruent and improving Suicidality/Homicidality: Denies Perceptions: Denies Though content/process: Patient is logical, more goal oriented today. Memory and concentration: Alert and oriented 3, fair attention span. Judgment and insight: Chronically poor, improving mildly IMPRESSIONS: Bipolar disorder, depressed episode Methamphetamine use disorder in early remission Opioid Use Disorder, in remission Nicotine dependence Benzodiazepine abuse alcohol abuse PLAN: -Patient is admitted under voluntary status to MHU for stabilization of psychiatric symptoms and safety. Patient signed adult voluntary form and medication consent and is placed in patient's chart. -Medications : Zoloft 50 mg daily for mood/anxiety. Seroquel 100 mg daily at bedtime for mood stabilization/insomnia. Vistaril when necessary for anxiety. Zyprexa PRN for agitation/aggression -NRT - nicotine patch -SW on board for discharge planning. Encourage patient to participate in groups to work on coping skills. Likely discharge tomorrow back to [facility].
[2023-07-16] MEDS: IBUPROFEN 600 MG TAB PO PRN (10:53)
[2023-07-16] MEDS: QUEtiapine 50 MG TAB PO SCH (20:03)
[2023-07-17 06:50] VITALS: RESP 16; TEMP 98.1
[2023-07-17] MEDS: BACITRACIN OINT 1 EACH PACKET TOPICAL SCH (08:06)
[2023-07-17] MEDS: LISINOPRIL-HCTZ 20-25 MG 1 EACH TAB PO SCH (08:06)
[2023-07-17] MEDS: SERTRALINE 50 MG TAB PO SCH (08:06)
[2023-07-17] MEDS: NICOTINE 21MG/24HR PATCH TRANSDERM SCH ×2 (08:06→08:58)
[2023-07-17 08:07] VITALS: BP 121/65; PULSE 75
[2023-07-17] MEDS: NICOTINE GUM (POLACRILEX) 2 MG GUM BUCCAL PRN ×2 (08:57→13:18)
--- NOTE | 2023-07-17 10:15 | P.DS ---
Providers Date of admission: 07/12/23 15:49 Expected date of discharge: 07/17/23 Attending physician: James Myers MD Consults: 07/12/23 16:00 Consult Physician Routine Consulting Provider: Laurie Barahona Consult Reason/Comments: H and P Do you want consulting provider notified?: Yes Primary care physician: Stated None - Discharge Diagnosis(es) (1) Bipolar disorder current episode depressed Current Visit: Yes Status: Acute Priority: High (2) Methamphetamine use disorder, moderate, in early remission Current Visit: Yes Status: Acute Priority: Medium (3) Opioid use disorder in remission Current Visit: Yes Status: Acute Priority: Medium (4) Nicotine dependence Current Visit: Yes Status: Acute Priority: Low (5) Benzodiazepine abuse Current Visit: Yes Status: Acute Priority: Medium (6) Alcohol abuse Current Visit: Yes Status: Acute Priority: High Hospital Course: Admission HPI: Admission note was completed by teletypewriter installer "Patient is a 38-year-old single, unemployed, lives with mother, male with a significant history of methamphetamine use disorder, 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 Patient presented to the hospital yesterday to the ER via EMS. Patient was complaining of depression and suicidal thoughts without plan to stab himself in the ER. Patient had apparently admitted to drinking alcohol however denied using any other drugs. Patient's urine drug seems positive for amphetamines and benzodiazepine. Patient was seen wandering the unit today, appeared to be mildly disheveled, however was cooperative with teletypewriter installer. He states that he was feeling very frustrated and angry with his mother. He claims that they got into an argument and she "messed me up". He states that she was trying to kick him out of the house after he paid her rent. He states that she made a comment to him stating that "I'm ashamed that you came out of me". He claims after he started feeling depressed and angry and was drinking and then claims that she called the police who brought him into the hospital. He was minimizing his alcohol use and states that he drinks about a pint a fire ball today, denying any withdrawal symptoms or history of withdrawals. He claims that his sleep is on and off, appetite is fair. He states that he is taking the Seroquel and Zoloft since his previous admission. At this time patient is denying any suicidal or homicidal ideations intent or plan. Denying any auditory or visual hallucinations." Hospital course: Upon admission to the unit patient was directable and agreeable to commence treatment and signed adult voluntary form . Patient got along well with other patients on the unit and followed unit protocol. Patient was compliant with the medications and denied any side effects throughout hospital course. Patient was started on Zoloft 50 mg daily for mood/anxiety, Seroquel 100 mg daily at bedtime for mood stabilization/insomnia, Vistaril when necessary for anxiety. patient was also started on ciwa protocl with prn ativan for etoh w/d. Patient spoke of his stressors and engaged in therapy both group and individual. Patient was also seen by medical team for history and physical exam. Throughout the course of the hospitalization patient gradually improved with regards to mood, anxiety, sleep and returned back to their baseline level of functioning. On the day of discharge patient denied any suicidal or homicidal ideations intent or plan denied any auditory or visual hallucinations. Patient endorsed wanting to live for his health and family. The patient denied any access to guns or weapons. Patient denied any paranoia and did not endorse any delusions. Patient does have a significant history of substance abuse and was counseled on abstaining from all substances including alcohol and marijuana. Patient elected to do outpatient substance use treatment program through [facility]. Patient was also counseled on the medications and need for regular compliance and was encouraged to follow-up with their outpatient appointment for mental health and also for primary care. Prior to discharge a family meeting will be arranged by social media marketer to answer any questions and ensure safety upon discharge. Patient will be returning back to his mother's house today on discharge. Mental status exam: General Appearance: Patient appears to be short in stature, unshaven, stated age is alert, pleasant, and cooperative. Patient is in no acute distress and has improved hygiene and grooming Behavior: Patient is calmly seated without any agitated behavior. Speech: Patient's speech is fluent and nonpressured. Mood/Affect: Patient reports their mood is "good", affect is congruent and euthymic. Suicidality/Homicidality: Patient denies having any suicidal or homicidal ideation intent or plan. Perceptions: Patient denies any auditory or visual hallucinations. Though content/process: There is no evidence of any delusional thought content and thought process is linear and goal-directed. more future oriented Memory and concentration: AOX3, grossly intact for the purposes of this session. Can spell "WORLD" backwards correctly. Judgment and insight: chronically poor, however has improved with guarded prognosis Impression: Bipolar disorder current episode depressed Methamphetamine use disorder moderate in early remission Opiate use disorder in remission Benzodiazepine abuse Alcohol abuse Nicotine dependence Plan: -Continue with discharge today as patient has improved and stabilized psychiatrically and is not currently an imminent threat to himself and/or others. Patient will remain at chronically elevated risk for harm to self and/or others due to his impulsivity and polysubstance abuse. -Continue medications: Zoloft 50 mg daily for mood/anxiety, cervical 100 mg daily at bedtime for mood stabilization/insomnia, Vistaril daily when necessary for anxiety. -Patient was counseled on the need for medication compliance and appropriate follow-up at mental health and also primary care for medical issues. Patient verbalized understanding and agreed. -Social work to arrange for and conduct family meeting to ensure safety upon discharge and answer any questions/concerns. Social work also to arrange for patients follow up appointments with [facility] for psychiatric care along with follow up with primary care provider. -Patient counseled on abstaining from recreational drugs and marijuana and alcohol. Was informed/educated on the adverse effects on their physical and mental health. Patient verbally agreed and understood. Patient was offered substance abuse treatment however declined at this time. -Patient was instructed to return to the hospital or seek immediate medical care if their psychiatric or medical symptoms do worsen or reoccur. Allergies Allergy/AdvReac Type Severity Reaction Status Date / Time No Known Allergies Allergy Verified 07/12/23 12:49 Laboratory Results WBC 5.4 k/uL (3.8-10.6) 07/13/23 07:58 RBC 4.72 m/uL (4.30-5.90) 07/13/23 07:58 Hgb 15.4 gm/dL (13.0-17.5) 07/13/23 07:58 Hct 45.2 % (39.0-53.0) 07/13/23 07:58 MCV 95.9 fL (80.0-100.0) 07/13/23 07:58 MCH 32.5 pg (25.0-35.0) 07/13/23 07:58 MCHC 34.0 g/dL (31.0-37.0) 07/13/23 07:58 RDW 14.1 % (11.5-15.5) 07/13/23 07:58 Plt Count 195 k/uL (150-450) 07/13/23 07:58 MPV 8.1 07/13/23 07:58 Neutrophils % 61 % 07/13/23 07:58 Lymphocytes % 24 % 07/13/23 07:58 Monocytes % 9 % 07/13/23 07:58 Eosinophils % 3 % 07/13/23 07:58 Basophils % 0 % 07/13/23 07:58 Neutrophils # 3.3 k/uL (1.3-7.7) 07/13/23 07:58 Lymphocytes # 1.3 k/uL (1.0-4.8) 07/13/23 07:58 Monocytes # 0.5 k/uL (0-1.0) 07/13/23 07:58 Eosinophils # 0.2 k/uL (0-0.7) 07/13/23 07:58 Basophils # 0.0 k/uL (0-0.2) 07/13/23 07:58 Sodium 136 mmol/L (137-145) L 07/13/23 07:58 Potassium 3.7 mmol/L (3.5-5.1) 07/13/23 07:58 Chloride 102 mmol/L (98-107) 07/13/23 07:58 Carbon Dioxide 30 mmol/L (22-30) 07/13/23 07:58 Anion Gap 4 mmol/L 07/13/23 07:58 BUN 13 mg/dL (9-20) 07/13/23 07:58 Creatinine 1.03 mg/dL (0.66-1.25) 07/13/23 07:58 Est GFR (CKD-EPI)AfAm >90 (>60 ml/min/1.73 sqM) 07/13/23 07:58 Est GFR (CKD-EPI)NonAf >90 (>60 ml/min/1.73 sqM) 07/13/23 07:58 Glucose 95 mg/dL (74-99) 07/13/23 07:[address] Glu mg/dL 117 mg/dL 07/13/23 07:58 Hemoglobin A1c 5.7 % (<=6.0) 07/13/23 07:58 Calcium 8.5 mg/dL (8.4-10.2) 07/13/23 07:58 Total Bilirubin 0.4 mg/dL (0.2-1.3) 07/13/23 07:58 AST 145 U/L (17-59) H 07/13/23 07:58 ALT 135 U/L (4-49) H 07/13/23 07:58 Alkaline Phosphatase 102 U/L (38-126) 07/13/23 07:58 Total Protein 6.5 g/dL (6.3-8.2) 07/13/23 07:58 Albumin 3.2 g/dL (3.5-5.0) L 07/13/23 07:58 Triglycerides 74.40 mg/dL (0.00-149.00) 07/13/23 07:58 Cholesterol 128.00 mg/dL (0.00-200.00) 07/13/23 07:58 LDL Cholesterol, Calc 37.5 mg/dL (0.0-131.0) 07/13/23 07:58 VLDL Cholesterol, Calc 14.88 mg/dL (5.00-40.00) 07/13/23 07:58 HDL Cholesterol 75.60 mg/dL (40.00-60.00) H 07/13/23 07:58 Cholesterol/HDL Ratio 1.69 Ratio 07/13/23 07:58 TSH 0.818 mIU/L (0.465-4.680) 07/13/23 07:58 Urine Opiates Screen Not Detected (NotDetected) 07/12/23 09:22 Ur Oxycodone Screen Not Detected (NotDetected) 07/12/23 09:22 Urine Methadone Screen Not Detected (NotDetected) 07/12/23 09:22 Ur Propoxyphene Screen Not Detected (NotDetected) 07/12/23 09:22 Ur Barbiturates Screen Not Detected (NotDetected) 07/12/23 09:22 U Tricyclic Antidepress Not Detected (NotDetected) 07/12/23 09:22 Ur Phencyclidine Scrn Not Detected (NotDetected) 07/12/23 09:22 Ur Amphetamines Screen Detected (NotDetected) H 07/12/23 09:22 U Methamphetamines Scrn Not Detected (NotDetected) 07/12/23 09:22 U Benzodiazepines Scrn Detected (NotDetected) H 07/12/23 09:22 Urine Cocaine Screen Not Detected (NotDetected) 07/12/23 09:22 U Marijuana (THC) Screen Not Detected (NotDetected) 07/12/23 09:22 Coronavirus (PCR) Not Detected (Not Detectd) 07/12/23 13:17 Vital Signs Temp 98.1 F 07/17/23 06:50 Pulse 75 07/17/23 08:07 Resp 16 07/17/23 06:50 BP 121/65 07/17/23 08:07 Pulse Ox 97 07/17/23 06:50 FiO2 Patient Condition at Discharge: Stable Plan - Discharge Summary Discharge Rx Participant: No New Discharge Prescriptions: New Nicotine 21Mg/24Hr Patch [Habitrol] 1 patch TRANSDERM DAILY 14 Days #14 patch Ibuprofen [Motrin] 600 mg PO Q6HR PRN tab PRN Reason: Moderate Pain (Scale 4 To 6) QUEtiapine [SEROquel] 100 mg PO DAILY 30 Days #30 tablet Bacitracin Zinc/Polymyxin B [Bacitracin-Polymyxin Ointment] 1 applic TOPICAL BID 30 Days #1 gm Nicotine Gum (Polacrilex) [Nicorette] 2 mg BUCCAL Q4HR PRN 30 Days #180 pieceofgum PRN Reason: Nicotine Cravings Continue Sertraline [Zoloft] 50 mg PO DAILY 30 Days #30 tab Lisinopril-Hctz 20-25 mg [Zestoretic 20-25] 1 each PO DAILY 30 Days #30 tab Discontinued QUEtiapine [SEROquel] 100 mg PO HS 30 Days #60 tab Discharge Medication List Bacitracin Zinc/Polymyxin B [Bacitracin-Polymyxin Ointment] 1 applic TOPICAL BID 30 Days #1 gm 07/17/23 [Rx] Ibuprofen [Motrin] 600 mg PO Q6HR PRN tab 07/17/23 [Rx] Lisinopril-Hctz 20-25 mg [Zestoretic 20-25] 1 each PO DAILY 30 Days #30 tab 07/17/23 [Rx] Nicotine 21Mg/24Hr Patch [Habitrol] 1 patch TRANSDERM DAILY 14 Days #14 patch 07/17/23 [Rx] Nicotine Gum (Polacrilex) [Nicorette] 2 mg BUCCAL Q4HR PRN 30 Days #180 pieceofgum 07/17/23 [Rx] QUEtiapine [SEROquel] 100 mg PO DAILY 30 Days #30 tablet 07/17/23 [Rx] Sertraline [Zoloft] 50 mg PO DAILY 30 Days #30 tab 07/17/23 [Rx] Follow up Appointment(s)/Referral(s): [facility] [Outside] - 07/17/23 1:30 pm (Jenny) [facility] [NON-STAFF] - 1-2 Days Patient Instructions/Handouts: How to Stop Smoking (DC), Depression (DC), Abuse of Alcohol (DC), Polysubstance Abuse (ED), Borderline Personality Disorder (DC), Suicide Prevention (DC) Activity/Diet/Wound Care/Special Instructions: Avoid the use of street drugs and alcohol. Take all medications as prescribed. When you are in need of refills on your medications, please contact your medical provider and/or outpatient psychiatrist/provider to have this done. Please go to your scheduled outpatient appointment for aftercare treatment. If symptoms return or become worse, call the crisis line at and/or go to the nearest emergency room for evaluation. National Suicide Hotline 934. Discharge Disposition: HOME SELF-CARE
== END 2023-07-17 14:55 | disposition home or self-care (01) | DRG 753 ==
LOC: EC 08:30 → 3MHU 15:49
PROVIDERS: ADMIT Psychiatry & Neurology Psychiatry; ATTEND Psychiatry & Neurology Psychiatry
DX: F31.30 Bipolar disorder, current episode depressed, mild or moderate severity, unspecified (principal); R45.851 Suicidal ideations; F90.9 Attention-deficit hyperactivity disorder, unspecified type; G47.00 Insomnia, unspecified; I10 Essential (primary) hypertension; F17.210 Nicotine dependence, cigarettes, uncomplicated; F15.11 Other stimulant abuse, in remission; F13.10 Sedative, hypnotic or anxiolytic abuse, uncomplicated; F10.10 Alcohol abuse, uncomplicated; Z20.822 Contact with and (suspected) exposure to COVID-19; Z28.310 Unvaccinated for COVID-19; Z28.21 Immunization not carried out because of patient refusal; S90.414A Abrasion, right lesser toe(s), initial encounter; Z79.899 Other long term (current) drug therapy; Z91.51 Personal history of suicidal behavior
CPT/HCPCS: 80053; 80061; 80306; 82075; 83036; 84443; 85025; 87635; 99285

== ENCOUNTER 2023-08-23 09:21 | Emergency (ER) | payer OTHER ==
[2023-08-23 09:31] VITALS: BP 184/122; PULSE 82; RESP 22; TEMP 97
--- NOTE | 2023-08-23 10:01 | ED ---
General Adult HPI - General Chief complaint: Recheck/Abnormal Lab/Rx Stated complaint: petition Time Seen by Provider: 08/23/23 09:22 Source: patient, RN notes reviewed Mode of arrival: ambulatory Limitations: no limitations - History of Present Illness Initial comments: 38-year-old male presents emergency Department with chief complaint of bleeding psychiatric evaluation. Patient has a history of methamphetamine use. Denies any alcohol use. Patient's was found at house that he did not belong at. Patient states he did have some bizarre behavior is a long psychiatric history. Patient was brought here for evaluation denies being suicidal or homicidal. - Related Data Previous Rx's Medication Instructions Recorded Bacitracin Zinc/Polymyxin B 1 applic TOPICAL BID 30 Days #1 gm 07/17/23 [Bacitracin-Polymyxin Ointment] Ibuprofen [Motrin] 600 mg PO Q6HR PRN tab 07/17/23 Lisinopril-Hctz 20-25 mg 1 each PO DAILY 30 Days #30 tab 07/17/23 [Zestoretic 20-25] Nicotine 21Mg/24Hr Patch [Habitrol] 1 patch TRANSDERM DAILY 14 Days 07/17/23 #14 patch Nicotine Gum (Polacrilex) 2 mg BUCCAL Q4HR PRN 30 Days #180 07/17/23 [Nicorette] pieceofgum QUEtiapine [SEROquel] 100 mg PO DAILY 30 Days #30 tablet 07/17/23 Sertraline [Zoloft] 50 mg PO DAILY 30 Days #30 tab 07/17/23 Allergies Allergy/AdvReac Type Severity Reaction Status Date / Time No Known Allergies Allergy Verified 08/23/23 09:25 Review of Systems ROS Statement: Those systems with pertinent positive or pertinent negative responses have been documented in the HPI. ROS Other: All systems not noted in ROS Statement are negative. Past Medical History Past Medical History: Hypertension Additional Past Medical History / Comment(s): Migraines, L lower extremity cellulitis/sepsis, pilonidal cysts/abscesses. History of Any Multi-Drug Resistant Organisms: MRSA Date of last positivie culture/infection: 07/26/21 MDRO Source:: Right Testicle Past Surgical History: Cholecystectomy, Orthopedic Surgery Additional Past Surgical History / Comment(s): I&D testicle, R tib/fib fracture repair with hardware. Past Anesthesia/Blood Transfusion Reactions: No Reported Reaction Past Psychological History: ADD/ADHD, Anxiety, Depression Smoking Status: Current every day smoker Past Alcohol Use History: Rare Past Drug Use History: Marijuana, Methamphetamine - Past Family History Mother Family Medical History: Cancer Additional Family Medical History / Comment(s): cervical cancer Father Family Medical History: Cancer Additional Family Medical History / Comment(s): Father in 1997 from lung and liver cancer General Exam Limitations: no limitations General appearance: alert, in no apparent distress, anxious Head exam: Present: atraumatic, normocephalic, normal inspection Eye exam: Present: normal appearance, PERRL, EOMI. Absent: scleral icterus, conjunctival injection, periorbital swelling ENT exam: Present: normal exam, normal oropharynx, mucous membranes moist Neck exam: Present: normal inspection, full ROM. Absent: tenderness, meningismus, lymphadenopathy Respiratory exam: Present: normal lung sounds bilaterally. Absent: respiratory distress, wheezes, rales, rhonchi, stridor Cardiovascular Exam: Present: regular rate, normal rhythm, normal heart sounds. Absent: systolic murmur, diastolic murmur, rubs, gallop, clicks GI/Abdominal exam: Present: soft, normal bowel sounds. Absent: distended, tenderness, guarding, rebound, rigid Neurological exam: Present: alert, oriented X3 Psychiatric exam: Present: anxious Course Vital Signs 08/23/23 09:25 Temperature 97.0 F L Pulse Rate 82 Respiratory 22 Rate Blood Pressure 184/122 O2 Sat by Pulse 96 Oximetry Medical Decision Making - Medical Decision Making Was pt. sent in by a medical professional or institution (, PA, BEER RUNNER, urgent care, hospital, or alf...) When possible be specific @ -No Did you speak to anyone other than the patient for history (EMS, parent, family, police, friend...)? What history was obtained from this source @ -Police who brought patient, petition patient Did you review nursing and triage notes (agree or disagree)? Why? @ -I reviewed and agree with nursing and triage notes Were old charts reviewed (outside hosp., previous admission, EMS record, old EKG, old radiological studies, urgent care reports/EKG's, alf records)? Report findings @ -No old charts were reviewed Differential Diagnosis (chest pain, altered mental status, abdominal pain women, abdominal pain men, vaginal bleeding, weakness, fever, dyspnea, syncope, headache, dizziness, GI bleed, back pain, seizure, CVA, palpatations, mental health, musculoskeletal)? @ -Differential Mental Health Depression, anxiety, bipolar, psychosis, schizophrenia, borderline personality, situational depression, adjustment disorder, behavioral disorder, brain tumor, malingering, substance abuse, encephalopathy, medication reaction, dementia, hypothyroidism, degenerative neurologic disorder, lupus.... This is not meant to be all-inclusive liste EKG interpreted by me (3pts min.). @ -None X-rays interpreted by me (1pt min.). @ -None done CT interpreted by me (1pt min.). @ -None done U/S interpreted by me (1pt. min.). @ -None done What testing was considered but not performed or refused? (CT, X-rays, U/S, labs)? Why? @ -None What meds were considered but not given or refused? Why? @ -None Did you discuss the management of the patient with other professionals (professionals i.e. , PA, BEER RUNNER, lab, RT, psych nurse, manager social work, bus person, teacher, sustainability officer, manager [employer])? Give summary @ -EVS evaluated the patient recommended patient be discharged Was smoking cessation discussed for >3mins.? @ -No Was critical care preformed (if so, how long)? @ -No Were there social determinants of health that impacted care today? How? (Homelessness, low income, unemployed, alcoholism, drug addiction, transportation, low edu. Level, literacy, decrease access to med. care, fpc, rehab)? @ -No Was there de-escalation of care discussed even if they declined (Discuss DNR or withdrawal of care, Hospice)? DNR status @ -No What co-morbidities impacted this encounter? (DM, HTN, Smoking, COPD, CAD, Cancer, CVA, ARF, Chemo, Hep., AIDS, mental health diagnosis, sleep apnea, morbid obesity)? @ -Drug abuse Was patient admitted / discharged? Hospital course, mention meds given and route, prescriptions, significant lab abnormalities, going to OR and other pertinent info. @ -Discharged patient was evaluated by EPS case discussed with psychiatrist recommends patient be discharged. Undiagnosed new problem with uncertain prognosis? @ -No Drug Therapy requiring intensive monitoring for toxicity (Heparin, Nitro, Insulin, Cardizem)? @ -No Were any procedures done? @ -No Diagnosis/symptom? @ -Drug abuse, Acute, or Chronic, or Acute on Chronic? @ -Acute Uncomplicated (without systemic symptoms) or Complicated (systemic symptoms)? @ -Uncomplicated Side effects of treatment? @ -No Exacerbation, Progression, or Severe Exacerbation? @ -No Poses a threat to life or bodily function? How? (Chest pain, USA, NC, pneumonia, PE, COPD, DKA, ARF, appy, cholecystitis, CVA, Diverticulitis, Homicidal, Suic idal, threat to staff... and all critical care pts) @ -No Disposition Clinical Impression: Acute psychosis, Drug abuse Disposition: HOME SELF-CARE Condition: Stable Additional Instructions: Please return to the Emergency Department if symptoms worsen or any other concerns. Is patient prescribed a controlled substance at d/c from ED?: No Referrals: None,Stated [Primary Care Provider] - 1-2 days Time of Disposition: 12:17
== END 2023-08-23 12:30 | disposition home or self-care (01) ==
LOC: EC 09:21
DX: F23 Brief psychotic disorder (principal); F19.10 Other psychoactive substance abuse, uncomplicated; I10 Essential (primary) hypertension; F17.200 Nicotine dependence, unspecified, uncomplicated; F12.90 Cannabis use, unspecified, uncomplicated; F15.90 Other stimulant use, unspecified, uncomplicated; Z86.59 Personal history of other mental and behavioral disorders; Z90.49 Acquired absence of other specified parts of digestive tract
CPT/HCPCS: 82075; 99283

== ENCOUNTER 2023-11-05 00:46 | Inpatient (IN) | payer OTHER ==
--- NOTE | 2023-11-05 00:49 | ED ---
General Adult HPI - General Source: patient, EMS, RN notes reviewed, old records reviewed Mode of arrival: EMS Limitations: no limitations <Gustabo Badillo - Last Filed: 11/05/23 03:08> <Akira Stahl - Last Filed: 11/05/23 14:25> - General Stated complaint: Mental Health Time Seen by Provider: 11/05/23 00:47 - History of Present Illness Initial comments: 38-year-old male presents emergency Department chief complaint of hearing voices, depression, suicidal ideation. Patient states that he he used to use heroin and methamphetamine states he has not used methamphetamines in 4 weeks. Patient has an adult call use today. Patient states that the voices are getting worse and states that he feels unstable at home. Patient states he feels that he needs to be admitted to 3 . (Gustabo Badillo) - Related Data Home Medications Medication Instructions Recorded Confirmed No Known Home Medications 11/05/23 11/05/23 Allergies Allergy/AdvReac Type Severity Reaction Status Date / Time No Known Allergies Allergy Verified 11/05/23 12:11 Review of Systems ROS Other: All systems not noted in ROS Statement are negative. <Gustabo Badillo - Last Filed: 11/05/23 03:08> ROS Other: All systems not noted in ROS Statement are negative. <Akira Stahl - Last Filed: 11/05/23 14:25> ROS Statement: Those systems with pertinent positive or pertinent negative responses have been documented in the HPI. Past Medical History Past Medical History: Hypertension Additional Past Medical History / Comment(s): Migraines, L lower extremity cellulitis/sepsis, pilonidal cysts/abscesses. History of Any Multi-Drug Resistant Organisms: MRSA Date of last positivie culture/infection: 07/26/21 MDRO Source:: Right Testicle Past Surgical History: Cholecystectomy, Orthopedic Surgery Additional Past Surgical History / Comment(s): I&D testicle, R tib/fib fracture repair with hardware. Past Anesthesia/Blood Transfusion Reactions: No Reported Reaction Past Psychological History: ADD/ADHD, Anxiety, Depression Smoking Status: Current every day smoker Past Alcohol Use History: Rare Past Drug Use History: Marijuana, Methamphetamine - Past Family History Mother Family Medical History: Cancer Additional Family Medical History / Comment(s): cervical cancer Father Family Medical History: Cancer Additional Family Medical History / Comment(s): Father in 1997 from lung and liver cancer <Gustabo Badillo - Last Filed: 11/05/23 03:08> General Exam Limitations: no limitations General appearance: alert, in no apparent distress Head exam: Present: atraumatic, normocephalic, normal inspection Eye exam: Present: normal appearance, PERRL, EOMI. Absent: scleral icterus, conjunctival injection, periorbital swelling ENT exam: Present: normal exam, normal oropharynx, mucous membranes moist Neck exam: Present: normal inspection, full ROM. Absent: tenderness, meningismus, lymphadenopathy Respiratory exam: Present: normal lung sounds bilaterally. Absent: respiratory distress, wheezes, rales, rhonchi, stridor Cardiovascular Exam: Present: regular rate, normal rhythm, normal heart sounds. Absent: systolic murmur, diastolic murmur, rubs, gallop, clicks Neurological exam: Present: alert, oriented X3, CN II-XII intact, reflexes normal. Absent: motor sensory deficit Psychiatric exam: Present: depressed, anxious Skin exam: Present: warm, dry, intact, normal color. Absent: rash <Gustabo Badillo - Last Filed: 11/05/23 03:08> Course Vital Signs 11/05/23 11/05/23 11/05/23 00:47 01:55 03:06 Temperature 98.7 F Pulse Rate 104 H 93 88 Respiratory 22 16 16 Rate Blood Pressure 222/135 210/131 169/103 O2 Sat by Pulse 98 98 99 Oximetry 11/05/23 08:09 Temperature Pulse Rate 89 Respiratory 18 Rate Blood Pressure 183/79 O2 Sat by Pulse 98 Oximetry Medical Decision Making - Lab Data Result diagrams: 11/05/23 01:54 11/05/23 01:54 <Gustabo Badillo - Last Filed: 11/05/23 03:08> - Lab Data Result diagrams: 11/05/23 01:54 11/05/23 01:54 <Akira Stahl - Last Filed: 11/05/23 14:25> - Medical Decision Making Was pt. sent in by a medical professional or institution (, PA, INFECTION PREVENTION SPECIALIST, urgent care, hospital, or correction...) When possible be specific @ -No Did you speak to anyone other than the patient for history (EMS, parent, family, police, friend...)? What history was obtained from this source @ -No Did you review nursing and triage notes (agree or disagree)? Why? @ -I reviewed and agree with nursing and triage notes Were old charts reviewed (outside hosp., previous admission, EMS record, old EKG, old radiological studies, urgent care reports/EKG's, correction records)? Report findings @ -Believe prior charts the laboratory studies, psychiatric evaluations Differential Diagnosis (chest pain, altered mental status, abdominal pain women, abdominal pain men, vaginal bleeding, weakness, fever, dyspnea, syncope, headache, dizziness, GI bleed, back pain, seizure, CVA, palpatations, mental he alth, musculoskeletal)? @ -Differential Mental Health Depression, anxiety, bipolar, psychosis, schizophrenia, borderline personality, situational depression, adjustment disorder, behavioral disorder, brain tumor, malingering, substance abuse, encephalopathy, medication reaction, dementia, hypothyroidism, degenerative neurologic disorder, lupus.... This is not meant to be all-inclusive listable EKG interpreted by me (3pts min.). @ -None X-rays interpreted by me (1pt min.). @ -None done CT interpreted by me (1pt min.). @ -None done U/S interpreted by me (1pt. min.). @ -None done What testing was considered but not performed or refused? (CT, X-rays, U/S, labs)? Why? @ -None What meds were considered but not given or refused? Why? @ -None Did you discuss the management of the patient with other professionals (professionals i.e. , PA, INFECTION PREVENTION SPECIALIST, lab, RT, psych nurse, high school social science teacher, patroller, teacher, logistics officer, rifle case repairer)? Give summary @ -EPS pending evaluation Was smoking cessation discussed for >3mins.? @ -No Was critical care preformed (if so, how long)? @ -No Were there social determinants of health that impacted care today? How? (Homelessness, low income, unemployed, alcoholism, drug addiction, tra nsportation, low edu. Level, literacy, decrease access to med. care, [facility], rehab)? @ -No Was there de-escalation of care discussed even if they declined (Discuss DNR or withdrawal of care, Hospice)? DNR status @ -No What co-morbidities impacted this encounter? (DM, HTN, Smoking, COPD, CAD, Cancer, CVA, ARF, Chemo, Hep., AIDS, mental health diagnosis, sleep apnea, morbid obesity)? @ -Hypertension, drug abuse Was patient admitted / discharged? Hospital course, mention meds given and route, prescriptions, significant lab abnormalities, going to OR and other pertinent info. @ -Patient's case signed out to Dr. Stahl pending psychiatric evaluation. Patient did have significant hypertension was given hydralazine patient's blood pressure monitor. (Gustabo Badillo) Was patient admitted / discharged? Hospital course, mention meds given and route, prescriptions, significant lab abnormalities, going to OR and other perti nent info. @ -EPS evaluated the patient and determined the patient needed to be admitted to the facility however the patient's COVID just came back positive and needed to be admitted as an inpatient with a psych consult. I spoke with Dr. Rausch she agreed to admit the patient Undiagnosed new problem with uncertain prognosis? @ -No Drug Therapy requiring intensive monitoring for toxicity (Heparin, Nitro, Insulin, Cardizem)? @ -No Were any procedures done? @ -No Diagnosis/symptom? @ -COVID Acute, or Chronic, or Acute on Chronic? @ -Acute Uncomplicated (without systemic symptoms) or Complicated (systemic symptoms)? @ -Uncomplicated Side effects of treatment? @ -No Exacerbation, Progression, or Severe Exacerbation? @ -No Poses a threat to life or bodily function? How? (Chest pain, USA, PR, pneumonia, PE, COPD, DKA, ARF, appy, cholecystitis, CVA, Diverticulitis, Homicidal, Suicidal, threat to staff... and all critical care pts) @ -No Diagnosis/symptom? @ -Depression, suicidal ideations Acute, or Chronic, or Acute on Chronic? @ -Acute Uncomplicated (without systemic symptoms) or Complicated (systemic symptoms)? @ -Complicated Side effects of treatment? @ -none Exacerbation, Progression, or Severe Exacerbation] @ -no Poses a threat to life or bodily function? @ -Yes this can lead to suicide (Akira Stahl) - Lab Data Lab Results 11/05/23 11/05/23 11/05/23 Range/Units 00:56 01:54 01:54 WBC 8.5 (3.8-10.6) k/uL RBC 4.88 (4.30-5.90) m/uL Hgb 15.7 (13.0-17.5) gm/dL Hct 46.2 (39.0-53.0) % MCV 94.6 (80.0-100.0) fL MCH 32.2 (25.0-35.0) pg MCHC 34.0 (31.0-37.0) g/dL RDW 13.5 (11.5-15.5) % Plt Count 174 (150-450) k/uL MPV 8.2 Neutrophils % 70 % Lymphocytes % 18 % Monocytes % 8 % Eosinophils % 3 % Basophils % 0 % Neutrophils # 5.9 (1.3-7.7) k/uL Lymphocytes # 1.5 (1.0-4.8) k/uL Monocytes # 0.7 (0-1.0) k/uL Eosinophils # 0.3 (0-0.7) k/uL Basophils # 0.0 (0-0.2) k/uL Sodium 137 (137-145) mmol/L Potassium 4.3 (3.5-5.1) mmol/L Chloride 104 (98-107) mmol/L Carbon Dioxide 21 L (22-30) mmol/L Anion Gap 12 mmol/L BUN 21 H (9-20) mg/dL Creatinine 0.85 (0.66-1.25) mg/dL Est GFR (CKD-EPI)AfAm >90 (>60 ml/min/1.73 sqM) Est GFR (CKD-EPI)NonAf >90 (>60 ml/min/1.73 sqM) Glucose 90 (74-99) mg/dL Calcium 8.9 (8.4-10.2) mg/dL Total Bilirubin 0.5 (0.2-1.3) mg/dL AST 98 H (17-59) U/L ALT 126 H (4-49) U/L Alkaline Phosphatase 107 (38-126) U/L Total Protein 7.6 (6.3-8.2) g/dL Albumin 3.9 (3.5-5.0) g/dL Urine Opiates Screen Not Detected (NotDetected) Ur Oxycodone Screen Not Detected (NotDetected) Urine Methadone Screen Not Detected (NotDetected) Ur Propoxyphene Screen Not Detected (NotDetected) Ur Barbiturates Screen Not Detected (NotDetected) U Tricyclic Antidepress Not Detected (NotDetected) Ur Phencyclidine Scrn Not Detected (NotDetected) Ur Amphetamines Screen Not Detected (NotDetected) U Methamphetamines Scrn Not Detected (NotDetected) U Benzodiazepines Scrn Not Detected (NotDetected) Urine Cocaine Screen Not Detected (NotDetected) U Marijuana (THC) Screen Not Detected (NotDetected) SARS-CoV-2 (PCR) (Not Detectd) 11/05/23 Range/Units 13:02 WBC (3.8-10.6) k/uL RBC (4.30-5.90) m/uL Hgb (13.0-17.5) gm/dL Hct (39.0-53.0) % MCV (80.0-100.0) fL MCH (25.0-35.0) pg MCHC (31.0-37.0) g/dL RDW (11.5-15.5) % Plt Count (150-450) k/uL MPV Neutrophils % % Lymphocytes % % Monocytes % % Eosinophils % % Basophils % % Neutrophils # (1.3-7.7) k/uL Lymphocytes # (1.0-4.8) k/uL Monocytes # (0-1.0) k/uL Eosinophils # (0-0.7) k/uL Basophils # (0-0.2) k/uL Sodium (137-145) mmol/L Potassium (3.5-5.1) mmol/L Chloride (98-107) mmol/L Carbon Dioxide (22-30) mmol/L Anion Gap mmol/L BUN (9-20) mg/dL Creatinine (0.66-1.25) mg/dL Est GFR (CKD-EPI)AfAm (>60 ml/min/1.73 sqM) Est GFR (CKD-EPI)NonAf (>60 ml/min/1.73 sqM) Glucose (74-99) mg/dL Calcium (8.4-10.2) mg/dL Total Bilirubin (0.2-1.3) mg/dL AST (17-59) U/L ALT (4-49) U/L Alkaline Phosphatase (38-126) U/L Total Protein (6.3-8.2) g/dL Albumin (3.5-5.0) g/dL Urine Opiates Screen (NotDetected) Ur Oxycodone Screen (NotDetected) Urine Methadone Screen (NotDetected) Ur Propoxyphene Screen (NotDetected) Ur Barbiturates Screen (NotDetected) U Tricyclic Antidepress (NotDetected) Ur Phencyclidine Scrn (NotDetected) Ur Amphetamines Screen (NotDetected) U Methamphetamines Scrn (NotDetected) U Benzodiazepines Scrn (NotDetected) Urine Cocaine Screen (NotDetected) U Marijuana (THC) Screen (NotDetected) SARS-CoV-2 (PCR) Detected A (Not Detectd) Disposition <Gustabo Badillo - Last Filed: 11/05/23 03:08> Time of Disposition: 12:51 <Akira Stahl - Last Filed: 11/05/23 14:25> Clinical Impression: Hypertension, Suicidal ideation, Depression, COVID Disposition: ADMITTED IP TO THIS HOSP Referrals: None,Stated [Primary Care Provider] - 1-2 days
[2023-11-05 01:30] LABS: Amphetamine Screen,Urine Not Detected (NotDetected); Barbiturate Screen,Urine Not Detected (NotDetected); Benzodiazepines Screen,Urine Not Detected (NotDetected); Cocaine Screen,Urine Not Detected (NotDetected); Methadone Screen, Urine Not Detected (NotDetected); Opiate Screen,Urine Not Detected (NotDetected); Oxycodone Screen, Urine Not Detected (NotDetected); Phencyclidine Screen,Urine Not Detected (NotDetected); Tricyclic Antidepressant,Urine Not Detected (NotDetected); Urn Cannabinoid Scrn Not Detected (NotDetected)
[2023-11-05] MEDS ORDERED: hydrALAZINE HCL 20 MG/ML 1 ML VIAL IVP STA (01:35)
[2023-11-05 02:08] LABS: Basophils % (A) 0 %; Eosinophils # (A) 0.3 k/uL (0-0.7); Eosinophils % (A) 3 %; HCT 46.2 % (39.0-53.0); HGB 15.7 gm/dL (13.0-17.5); Lymphocytes # (A) 1.5 k/uL (1.0-4.8); Lymphocytes % (A) 18 %; MCH 32.2 pg (25.0-35.0); MCV 94.6 fL (80.0-100.0); Mean Platelet Volume 8.2; Monocytes # (A) 0.7 k/uL (0-1.0); Monocytes % (A) 8 %; Neutrophils # (A) 5.9 k/uL (1.3-7.7); Neutrophils % (A) 70 %; Platelet Count 174 k/uL (150-450); RBC 4.88 m/uL (4.30-5.90); RDW 13.5 % (11.5-15.5); WBC 8.5 k/uL (3.8-10.6)
[2023-11-05 02:41] LABS: ALT 126 U/L (4-49); AST 98 U/L (17-59); African American GFR (CKD) >90 (>60 ml/min/1.73 sqM); Albumin 3.9 g/dL (3.5-5.0); Alkaline Phosphatase 107 U/L (38-126); Anion Gap 12 mmol/L; Blood Urea Nitrogen 21 mg/dL (9-20); Calcium 8.9 mg/dL (8.4-10.2); Carbon Dioxide 21 mmol/L (22-30); Chloride 104 mmol/L (98-107); Glucose 90 mg/dL (74-99); Non-African American GFR(CKD) >90 (>60 ml/min/1.73 sqM); Sodium 137 mmol/L (137-145); Total Bilirubin 0.5 mg/dL (0.2-1.3); Total Protein 7.6 g/dL (6.3-8.2)
[2023-11-05 02:59] LABS: Potassium 4.3 mmol/L (3.5-5.1)
[2023-11-05] MEDS ORDERED: KETOROLAC 15 MG/ML 1 ML VIAL IVP STA (05:09)
[2023-11-05] MEDS: QUEtiapine 100 MG TAB PO SCH (08:28)
[2023-11-05] MEDS: SERTRALINE 50 MG TAB PO SCH (08:28)
[2023-11-05] MEDS: LISINOPRIL-HCTZ 20-25 MG 1 EACH TAB PO SCH (08:28)
[2023-11-05] MEDS ORDERED: ACETAMINOPHEN TAB 500 MG TAB PO STA (08:31)
[2023-11-05] MEDS: amLODIPine 10 MG TAB PO SCH (16:25)
--- NOTE | 2023-11-05 18:11 | P.HPIM ---
History of Present Illness H&P Date: 11/05/23 History of Presenting Illness: Patient is a 38-year-old male with a past medical history of hypertension ADHD, anxiety, depression, nicotine dependence, migraines, and polysubstance abuse with marijuana and methamphetamines. He presented to the emergency department on 11/05/23 with reports of hearing voices, depression, and having suicidal ideations. He underwent full evaluation in the emergency department. Upon arrival patient was found to have hypertensive urgency with blood pressure 222/135 and heart rate of 104. Patient does have history of methamphetamine abuse but states he has not used in a while. Patient was previously on amlodipine and lisinopril/hydrochlorothiazide for management of his blood pressure but states he stopped taking this medication a while ago because he ran out. Labs were completed and reviewed. CBC unremarkable. BMP revealing mild hypocarbia with bicarb of 21 and mild prerenal azotemia with BUN of 21 otherwise normal findings. Liver profile showing elevated AST of 98 and alkaline phosphatase of 126. Urine drug screen was negative. Coag PCR was positive. Patient petitioned in the emergency department and was initially supposed to be admitted to inpatient psychiatric unit, however secondary to patient having positive Covid test patient to be admitted under our services for medical management as psychiatric unit cannot accept patient until 10 days status post his positive Covid test. Patient was seen and fully evaluated at bedside. He was given a dose of hydralazine 20 mg IVP in the emergency department resulting in improvement of his blood pressure and it is currently 183/79. Patient denies having any headache, lightheadedness, dizziness, chest pain, palpitations, shortness of breath, cough or congestion, abdominal pain, nausea, vomiting, or experiencing any numbness/tingling/weakness/swelling in his extremities. Patient does report her to hearing voices and having suicidal ideations. Patient denies active plan at this time. Patient denies having any visual or tactile hallucinations. Patient currently calm and cooperative and denies any needs at this time. Review of systems: Pertinent positives and negatives as discussed in HPI, a complete review of systems was performed and all other systems are negative. Physical exam: Vital signs reviewed and stable. General: Nontoxic, no distress and appears stated age. Derm: Skin warm and dry, normal coloration for ethnicity. Head: Atraumatic, normocephalic and symmetric. Eyes: EOMs intact, no lid lag, and anicteric sclera Mouth: no lip lesions, mucus membranes moist Cardiovascular: regular rate and rhythm with normal S1S2, no murmur, positive posterior tibial pulses bilaterally, and cap refill < 2 seconds. Lungs: Respirations even, regular, and unlabored on room air. Lungs CTA bilaterally, no rhonchi, no rales, no wheezing, and no accessory muscle usage. Abdominal: soft, nontender to palpation, no guarding, no appreciable organomeg karon Ext: ROM intact. No gross muscle atrophy, no edema, no contractures Neuro: Speech clear, face symmetrical and CN II-XII grossly intact with no noted focal neuro deficits Psych: Alert and oriented to person, place, time, and situation. Appropriate and pleasant affect. Assessment and Plan of Care: Hypertensive urgency -Possibly rebound hypertension from stopping taking previously prescribed a ntihypertensive medications versus methamphetamine use/abuse however urine drug screen was negative. -Patient placed back on home medication regimen with amlodipine 10 mg daily and lisinopril/hydrochlorothiazide 20/25 mg daily. -Order placed for EKG. -Order placed for telemetry monitoring. Covid 19 infection -Patient asymptomatic -Provide patient with symptomatic care as needed. Nicotine dependence Order placed for nicotine patch 21 mg daily, recommend smoking cessation. Polysubstance abuse with methamphetamines and marijuana Recommend cessation of use Depression and anxiety Auditory hallucinations Suicidal ideations Suicide precautions in place Psychiatry following Elopement precautions in place Order placed for sitter to remain at bedside continuously. Data reviewed: -Vital signs reviewed. Upon arrival patient was found to have hypertensive urgency with blood pressure 222/135 and heart rate of 104. -Labs were completed and reviewed. CBC unremarkable. BMP revealing mild hypocarbia with bicarb of 21 and mild prerenal azotemia with BUN of 21 otherwise normal findings. Liver profile showing elevated AST of 98 and alkaline tommy sphatase of 126. -Urine drug screen was negative. -Covid PCR was positive. Patient petitioned in the emergency department and was initially supposed to be admitted to inpatient psychiatric unit, however secondary to patient having positive Covid test patient to be admitted under our services for medical management as psychiatric unit cannot accept patient until 10 days status post his positive Covid test. Donell Funes NP rendered care for this patient independently, reviewed the findings and plan as documented in the note above. I did not physically speak with or examine the patient on this date. CODE STATUS: Full code DVT prophylaxis: Lovenox Anticipated discharge date: Clinical course to determine Anticipated discharge place: Clinical course to determine Patient was seen independently by Nurse Practitioner. This document was prepared using [employer] dictation software. Please allow for errors in serger while rare they do occur. Past Medical History Past Medical History: Hypertension Additional Past Medical History / Comment(s): Migraines, L lower extremity cellulitis/sepsis, pilonidal cysts/abscesses. History of Any Multi-Drug Resistant Organisms: MRSA Date of last positivie culture/infection: 07/26/21 MDRO Source:: Right Testicle Past Surgical History: Cholecystectomy, Orthopedic Surgery Additional Past Surgical History / Comment(s): I&D testicle, R tib/fib fracture repair with hardware. Past Anesthesia/Blood Transfusion Reactions: No Reported Reaction Past Psychological History: ADD/ADHD, Anxiety, Depression Smoking Status: Current every day smoker Past Alcohol Use History: Rare Past Drug Use History: Marijuana, Methamphetamine - Past Family History Mother Family Medical History: Cancer Additional Family Medical History / Comment(s): cervical cancer Father Family Medical History: Cancer Additional Family Medical History / Comment(s): Father in 1997 from lung and liver cancer Medications and Allergies Home Medications Medication Instructions Recorded Confirmed Type No Known Home Medications 11/05/23 11/05/23 History Allergies Allergy/AdvReac Type Severity Reaction Status Date / Time No Known Allergies Allergy Verified 11/05/23 12:11 Physical Exam Osteopathic Statement: *. No significant issues noted on an osteopathic structural exam other than those noted in the History and Physical/Consult. Vitals: Vital Signs Temp Pulse Resp BP Pulse Ox 11/05/23 08:09 89 18 183/79 98 11/05/23 03:06 88 16 169/103 99 11/05/23 01:55 93 16 210/131 98 11/05/23 00:47 98.7 F 104 H 22 222/135 98 Intake and Output 11/05/23 11/05/23 11/05/23 06:59 14:59 22:59 Other: Weight 83.915 kg Results CBC & Chem 7: 11/05/23 01:54 11/05/23 01:54 Labs: Abnormal Lab Results - Last 24 Hours (Table) 12/18/23 12/18/23 Range/Units 01:54 13:02 Carbon Dioxide 21 L (22-30) mmol/L BUN 21 H (9-20) mg/dL AST 98 H (17-59) U/L ALT 126 H (4-49) U/L SARS-CoV-2 (PCR) Detected A (Not Detectd)
[2023-11-05] MEDS: NICOTINE 21MG/24HR PATCH TRANSDERM SCH (18:28)
[2023-11-06] MEDS: ACETAMINOPHEN TAB 325 MG TAB PO PRN ×2 (03:19→17:48)
[2023-11-06] MEDS: QUEtiapine 100 MG TAB PO SCH (08:02)
[2023-11-06] MEDS: amLODIPine 10 MG TAB PO SCH (08:03)
[2023-11-06] MEDS: LISINOPRIL-HCTZ 20-25 MG 1 EACH TAB PO SCH (08:03)
[2023-11-06] MEDS: SERTRALINE 50 MG TAB PO SCH (08:03)
[2023-11-06] MEDS: ENOXAPARIN 40 MG/0.4 ML SYRINGE SQ SCH (08:03)
[2023-11-06] MEDS: NICOTINE 21MG/24HR PATCH TRANSDERM SCH (08:03)
[2023-11-06] MEDS: carvediloL 6.25 MG TAB PO SCH ×2 (10:02→17:46)
--- NOTE | 2023-11-06 11:19 | P.CRDCN ---
History of Present Illness History of present illness: HISTORY OF PRESENT ILLNESS: This is a 38-year-old male with a past medical history significant for hypertension, polysubstance abuse with marijuana and methamphetamines, anxiety, depression, and nicotine dependence. Patient does not follow with a residential installer. We have been asked to see the patient in consultation for abnormal EKG and hypertension. Patient examined at the bedside. Patient presented to the hospital with a chief complaint of suicidal ideations. Plan was for inpatient psychiatric unit however the patient was found to be positive for Covid and was admitted to the medical floor. He currently denies any chest pain or pressure. He denies any shortness of breath. He states he feels dizzy right now after receiving Seroquel. 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 He is a current cigarette smoker. He reports a significant amount of caffeine use. He does report occasional alcohol use. He also has a history of drug use including marijuana and methamphetamines. * EKG reveals sinus mechanism, early repolarization, and T-wave inversions inferiorly and in V6. Similar to previous EKG * Laboratory data: Troponin negative 1. AST 98. ALT 126. * Current home cardiac medications include none * Most recent echocardiogram obtained in July 2021 revealing ejection fraction 30-35%, anterior septal hypokinesia, septal hypokinesis, mild MR, mild TR, small generalized pericardial effusion. REVIEW OF SYSTEMS: At the time of my exam: CONSTITUTIONAL: Denies fever or chills. HEENT: Denies blurred vision, vision changes, or eye pain. Denies hemoptysis CARDIOVASCULAR: Denies chest pain. Denies orthopnea. Denies PND. Denies palpitations RESPIRATORY: Denies shortness of breath. GASTROINTESTINAL: Denies abdominal pain. Denies nausea or vomiting. HEMATOLOGIC: Denies bleeding disorders. GENITOURINARY: Denies any blood in urine. SKIN: Denies pruitis. Denies rash. PHYSICAL EXAM: VITAL SIGNS: Reviewed. GENERAL: Well-developed in no acute distress. HEENT: Head is normocephalic. Pupils are equal, round. Sclerae anicteric. Mucous membranes of the mouth are moist. Neck supple. No JVD or thyromegaly LUNGS: Respirations even and unlabored. Lungs essentially clear to auscultation bilaterally. HEART: Regular rate and rhythm. S1 and S2 heard. ABDOMEN: Soft. Nondistended. Nontender. EXTREMITIES: Normal range of motion. No clubbing or cyanosis. Peripheral pulses intact. No lower extremity edema NEUROLOGIC: Awake and alert. Oriented x 3. ASSESSMENT: Covid 19 Suicidal ideation Hypertension Noncompliance with medications History of cardiomyopathy, 30-35%, suspect nonischemic History of polysubstance abuse including marijuana and methamphetamines Anxiety Depression Nicotine dependence PLAN: Obtain 2-D echo to assess cardiac structure and function Discontinue amlodipine secondary to history of cardiomyopathy Continue lisinopril-hydrochlorothiazide Add carvedilol 6.25 mg twice a day Continue to monitor blood pressure Recommend abstinence from drug use and smoking cessation Encouraged medication compliance Further recommendations pending patient's course Nurse practitioner note has been reviewed by physician. Signing provider agrees with the documented findings, assessment, and plan of care. Past Medical History Past Medical History: Hypertension Additional Past Medical History / Comment(s): Migraines, L lower extremity cellulitis/sepsis, pilonidal cysts/abscesses. History of Any Multi-Drug Resistant Organisms: MRSA Date of last positivie culture/infection: 07/26/21 MDRO Source:: Right Testicle Past Surgical History: Cholecystectomy, Orthopedic Surgery Additional Past Surgical History / Comment(s): I&D testicle, R tib/fib fracture repair with hardware. Past Anesthesia/Blood Transfusion Reactions: No Reported Reaction Past Psychological History: ADD/ADHD, Anxiety, Depression Smoking Status: Current every day smoker Past Alcohol Use History: Rare Past Drug Use History: Marijuana, Methamphetamine - Past Family History Mother Family Medical History: Cancer Additional Family Medical History / Comment(s): cervical cancer Father Family Medical History: Cancer Additional Family Medical History / Comment(s): Father in 1997 from lung and liver cancer Medications and Allergies Home Medications Medication Instructions Recorded Confirmed Type No Known Home Medications 11/05/23 11/05/23 History Allergies Allergy/AdvReac Type Severity Reaction Status Date / Time No Known Allergies Allergy Verified 11/05/23 12:11 Physical Exam Vitals: Vital Signs Temp Pulse Pulse Resp BP BP Pulse Ox 11/06/23 08:15 191/119 11/06/23 07:28 98.2 F 78 18 96 11/06/23 01:20 98.5 F 98 18 138/88 96 11/05/23 20:10 79 17 11/05/23 20:09 97.6 F 79 17 133/79 98 11/05/23 18:54 89 18 146/75 97 11/05/23 18:42 18 Intake and Output 11/05/23 11/06/23 11/06/23 22:59 06:59 14:59 Other: Voiding Method Toilet # Voids 1 Weight 83.915 kg Results 11/05/23 01:54 11/05/23 01:54 Cardiac Enzymes 11/05/23 Range/Units 19:12 Troponin I 0.032 (0.000-0.034) ng/mL Current Medications Generic Name Dose Route Start Last Admin Trade Name Freq PRN Reason Stop Dose Admin Acetaminophen 650 mg 11/05/23 09:49 11/06/23 03:19 Acetaminophen Tab 325 Mg Tab PO 650 mg Q6HR PRN Administration Mild Pain (Scale 1 to 3) Amlodipine Besylate 10 mg 11/05/23 15:15 11/06/23 08:03 Amlodipine 10 Mg Tab PO 10 mg DAILY GIDEON Administration Enoxaparin Sodium 40 mg 11/06/23 09:00 11/06/23 08:03 Enoxaparin 40 Mg/0.4 Ml Syringe SQ 40 mg DAILY GIDEON Administration Lisinopril/HCTZ 1 each 11/05/23 09:00 11/06/23 08:03 Lisinopril-Hctz 20-25 Mg 1 Each Tab PO 1 each DAILY GIDEON Administration Nicotine 1 patch 11/05/23 18:15 11/06/23 08:03 Nicotine 21mg/24hr Patch TRANSDERM 1 patch DAILY GIDEON Administration Quetiapine Fumarate 100 mg 11/05/23 09:00 11/06/23 08:02 Quetiapine 100 Mg Tab PO 100 mg DAILY GIDEON Administration Sertraline HCl 50 mg 11/05/23 09:00 11/06/23 08:03 Sertraline 50 Mg Tab PO 50 mg DAILY GIDEON Administration Intake and Output 11/05/23 11/06/23 11/06/23 22:59 06:59 14:59 Other: Voiding Method Toilet # Voids 1 Weight 83.915 kg 11/05/23 01:54 11/05/23 01:54
--- NOTE | 2023-11-06 12:28 | CA ---
Transthoracic Echo Report Name: Luis Crowell Age: 38 Gender: M : 1985 Exam Date: 11/06/2023 11:28 Exam Location: [facility] Ht (in): 66 Wt (lb): 185 Ordering Physician: Leeann Franklin Attending/Referring Phys: [id number], Noemi Manager Battery Susie Ashby RDCS Procedure CPT: Indications: LV function, HTN Cardiac Hx: Technical Quality: Fair Contrast 1: Total Dose (mL): Contrast 2: Total Dose (mL): MEASUREMENTS (Male / Female) Normal Values 2D ECHO LV Diastolic Diameter PLAX 3.6 cm 4.2 - 5.9 / 3.9 - 5.3 cm LV Systolic Diameter PLAX 2.6 cm IVS Diastolic Thickness 1.9 cm 0.6 - 1.0 / 0.6 - 0.9 cm LVPW Diastolic Thickness 2.2 cm 0.6 - 1.0 / 0.6 - 0.9 cm LV Relative Wall Thickness 1.1 LA Volume 45.9 cm??? 18 - 58 / 22 - 52 cm??? LA Volume Index 22.9 cm???/m??? 16 - 28 cm???/m??? DOPPLER AV Peak Velocity 127.1 cm/s AV Peak Gradient 6.5 mmHg AV Mean Velocity 73.7 cm/s AV Mean Gradient 2.8 mmHg AV Velocity Time Integral 17.7 cm LVOT Peak Velocity 123.5 cm/s LVOT Peak Gradient 6.1 mmHg MV Area PHT 2.2 cm??? Mitral E Point Velocity 57.2 cm/s Mitral A Point Velocity 67.0 cm/s Mitral E to A Ratio 0.9 MV Deceleration Time 340.8 ms MV E' Velocity 3.8 cm/s Mitral E to MV E' Ratio 15.0 FINDINGS Left Ventricle Severely increased left ventricular wall thickness. Left ventricular cavity size normal. Normal left ventricular systolic function with no obvious regional wall motion abnormalities. Left ventricular ejection fraction is estimated at 55-60 %. Right Ventricle Normal right ventricular size and function. Right ventricular systolic pressure within normal limits. Right Atrium Normal right atrial size. Left Atrium Normal left atrial size. Mitral Valve Structurally normal mitral valve. No mitral stenosis, regurgitation or prolapse. Aortic Valve Trileaflet aortic valve. No aortic valve stenosis or regurgitation. Tricuspid Valve Structurally normal tricuspid valve. Mild tricuspid regurgitation. Pulmonic Valve Structurally normal pulmonic valve. Pericardium No pericardial effusion. Aorta Normal size aortic root and proximal ascending aorta. CONCLUSIONS 1. Normal left ventricular systolic function with severe left ventricular hypertrophy 2. Mild tricuspid regurgitation Previewed by: Dr. Miguel Ángel Layne MD (Electronically Signed) Final Date: 06 November 2023 12:27
[2023-11-06] MEDS ORDERED: diphenhydrAMINE 50 MG CAP PO PRN (14:34)
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
--- NOTE | 2023-11-06 17:13 | P.PN ---
Subjective Progress Note Date: 11/06/23 Hospital course: Patient is a 38-year-old male with a past medical history of hypertension ADHD, anxiety, depression, nicotine dependence, migraines, and polysubstance abuse with marijuana and methamphetamines. He presented to the emergency department on 11/05/23 with reports of hearing voices, depression, and having suicidal ideations. He underwent full evaluation in the emergency department. Upon arrival patient was found to have hypertensive urgency with blood pressure 222/1 35 and heart rate of 104. Patient does have history of methamphetamine abuse but states he has not used in a while. Patient was previously on amlodipine and lisinopril/hydrochlorothiazide for management of his blood pressure but states he stopped taking this medication a while ago because he ran out. Labs were completed and reviewed. CBC unremarkable. BMP revealing mild hypocarbia with bicarb of 21 and mild prerenal azotemia with BUN of 21 otherwise normal findings. Liver profile showing elevated AST of 98 and alkaline phosphatase of 126. Urine drug screen was negative. Coag PCR was positive. Patient petitioned in the emergency department and was initially supposed to be admitted to inpatient psychiatric unit, however secondary to patient having positive Covid test patient to be admitted under our services for medical management as psychiatric unit cannot accept patient until 10 days status post his positive Covid test. Physical exam: Patient seen and fully evaluated at bedside this morning. Patient reports just feeling tired from Seroquel this morning. Seroquel changed to nighttime dose. Vital signs reviewed and stable. General: Nontoxic, no distress and appears stated age. Derm: Skin warm and dry, normal coloration for ethnicity. Head: Atraumatic, normocephalic and symmetric. Eyes: EOMs intact, no lid lag, and anicteric sclera Mouth: no lip lesions, mucus membranes moist Cardiovascular: regular rate and rhythm with normal S1S2, no murmur, positive posterior tibial pulses bilaterally, and cap refill < 2 seconds. Lungs: Respirations even, regular, and unlabored on room air. Lungs CTA bilaterally, no rhonchi, no rales, no wheezing, and no accessory muscle usage. Abdominal: soft, nontender to palpation, no guarding, no appreciable organomegaly Ext: ROM intact. No gross muscle atrophy, no edema, no contractures Neuro: Speech clear, face symmetrical and CN II-XII grossly intact with no noted focal neuro deficits Psych: Alert and oriented to person, place, time, and situation. Appropriate and pleasant affect. Assessment and Plan of Care: Hypertensive urgency Abnormal EKG, unchanged from previous -Possibly rebound hypertension from stopping taking previously prescribed antihypertensive medications vs methamphetamine use/abuse or withdrawal. -Continue lisinopril/hydrochlorothiazide 20/25 mg daily and cardiology starting patient on carvedilol 6.25 mg twice daily. Cardiology discontinued amlodipine secondary to patient's history of cardiomyopathy. -EKG was completed showing normal sinus rhythm at 69 bpm with T-wave inversion and ST depression in inferior leads 2, 3, and aVF as well as lateral lead V6. (Upon review of previous EKGs this is a previous known finding and unchanged when compared to EKG completed on 05/31/22). -Troponin was 0.032. -Cardiology was consulted for evaluation, reviewed documentation in chart. -Patient to remain on telemetry monitoring. -Echocardiogram to be completed. Covid 19 infection -Patient asymptomatic -Provide patient with symptomatic care as needed. Nicotine dependence Continue nicotine patch 21 mg daily, recommend smoking cessation. Polysubstance abuse with methamphetamines and marijuana Recommend cessation of use Depression and anxiety Auditory hallucinations Suicidal ideations Suicide precautions in place Psychiatry following Elopement precautions in place Order placed for sitter to remain at bedside continuously. Data reviewed: -Vital signs reviewed. Blood pressure 150/78, heart rate 78, respiratory rate 18, temp 98.2F, SpO2 of 96% on room air. Patient petitioned in the emergency department on 11/05/23 and was initially admitted to inpatient psychiatric unit, however secondary to patient incidentally testing positive for Covid, He was transferred to medical unit under our services for medical management as psychiatric unit cannot accept patient until 10 days status post his positive Covid test. Psychiatry following. CODE STATUS: Full code DVT prophylaxis: Lovenox Anticipated discharge date: Clinical course to determine Anticipated discharge place: Clinical course to determine Patient was seen independently by Nurse Practitioner. This document was prepared using [employer] dictation software. Please allow for errors in paddock judge while rare they do occur. Donell Funes NP rendered care for this patient independently, reviewed the findings and plan as documented in the note above. I did not physically speak with or examine the patient on this date. Objective - Vital Signs Vital signs: Vital Signs Temp 98.2 F 11/06/23 07:28 Pulse 78 11/06/23 07:28 Resp 18 11/06/23 07:28 BP 191/119 11/06/23 08:15 Pulse Ox 96 11/06/23 07:28 FiO2 Intake & Output 11/05/23 11/06/23 11/06/23 18:59 06:59 18:59 Weight 83.915 kg Other: Voiding Method Toilet # Voids 1 - Labs CBC & Chem 7: 11/05/23 01:54 11/05/23 01:54 Labs: Abnormal Lab Results - Last 24 Hours (Table) 11/05/23 Range/Units 13:02 SARS-CoV-2 (PCR) Detected A (Not Detectd)
[2023-11-06] MEDS: PALIPERIDONE 3 MG TAB.ER.24 PO SCH (20:02)
[2023-11-06] MEDS ORDERED: QUEtiapine 100 MG TAB PO SCH (21:00)
[2023-11-07] MEDS: LISINOPRIL-HCTZ 20-25 MG 1 EACH TAB PO SCH (08:28)
[2023-11-07] MEDS: ENOXAPARIN 40 MG/0.4 ML SYRINGE SQ SCH (08:28)
[2023-11-07] MEDS: SERTRALINE 50 MG TAB PO SCH (08:28)
[2023-11-07] MEDS: NICOTINE 21MG/24HR PATCH TRANSDERM SCH (08:29)
[2023-11-07] MEDS: carvediloL 6.25 MG TAB PO SCH ×2 (08:29→18:49)
--- NOTE | 2023-11-07 09:49 | P.PN ---
Subjective HISTORY OF PRESENT ILLNESS: This is a 38-year-old male with a past medical history significant for hypertension, polysubstance abuse with marijuana and methamphetamines, anxiety, depression, and nicotine dependence. Patient does not follow with a benefits clerk. We have been asked to see the patient in consultation for abnormal EKG and hypertension. Patient examined at the bedside. Patient presented to the hospital with a chief complaint of suicidal ideations. Plan was for inpatient psychiatric unit however the patient was found to be positive for Covid and was admitted to the medical floor. He currently denies any chest pain or pressure. He denies any shortness of breath. He states he feels dizzy right now after receiving Seroquel. 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 He is a current cigarette smoker. He reports a significant amount of caffeine use. He does report occasional alcohol use. He also has a history of drug use including marijuana and methamphetamines. * EKG reveals sinus mechanism, early repolarization, and T-wave inversions inferiorly and in V6. Similar to previous EKG * Laboratory data: Troponin negative 1. AST 98. ALT 126. * Current home cardiac medications include none * Most recent echocardiogram obtained in July 2021 revealing ejection fraction 30-35%, anterior septal hypokinesia, septal hypokinesis, mild MR, mild TR, small generalized pericardial effusion. 11/07/2023 Patient examined this morning at the bedside. Patient currently denies any chest pain or pressure. He denies any shortness of breath. Blood pressure has improved with readings yesterday of 119/69 and 132/78.. Blood pressure overnight 153/79. Echocardiogram completed revealing ejection fraction 55-60% with severe LVH and mild TR PHYSICAL EXAM: VITAL SIGNS: Reviewed. GENERAL: Well-developed in no acute distress. HEENT: Head is normocephalic. Pupils are equal, round. Sclerae anicteric. Mucous membranes of the mouth are moist. Neck supple. No JVD or thyromegaly LUNGS: Respirations even and unlabored. Lungs essentially clear to auscultation bilaterally. HEART: Regular rate and rhythm. S1 and S2 heard. ABDOMEN: Soft. Nondistended. Nontender. EXTREMITIES: Normal range of motion. No clubbing or cyanosis. Peripheral pulses intact. No lower extremity edema NEUROLOGIC: Awake and alert. Oriented x 3. ASSESSMENT: Covid 19 Suicidal ideation Hypertension Noncompliance with medications History of cardiomyopathy, 30-35%, suspect nonischemic, now with improved EF 55- 60% Severe LVH History of polysubstance abuse including marijuana and methamphetamines Anxiety Depression Nicotine dependence PLAN: Continue current cardiac medications Continue to monitor blood pressure Recommend abstinence from drug use and smoking cessation Encouraged medication compliance Recommend outpatient workup to rule out infiltrative disease secondary to severe LVH Patient to follow-up in the office with Dr. Layne in 4 weeks We will sign off. Please reconsult if needed. Nurse practitioner note has been reviewed by physician. Signing provider agrees with the documented findings, assessment, and plan of care. Objective - Vital Signs Vital signs: Vital Signs Temp 98.2 F 11/07/23 06:50 Pulse 69 11/07/23 06:50 Resp 17 11/07/23 06:50 BP 173/98 11/07/23 06:50 Pulse Ox 97 11/07/23 06:50 FiO2 Intake & Output 11/06/23 11/07/23 11/07/23 18:59 06:59 18:59 Other: Voiding Method Toilet # Voids 3 7 - Labs CBC & Chem 7: 11/05/23 01:54 11/05/23 01:54
--- NOTE | 2023-11-07 11:18 | P.PN ---
Subjective Progress Note Date: 11/07/23 No new complaints today. Gen: awake, alert HEENT: normocephalic, atraumatic, good hearing acuity, moist mucous membranes Resp: good air exchange, breathing comfortably with no accessory muscle use CVS: good distal perfusion x 4, GI: soft, NTTP, ND : no SPT, no CVAT, jones catheter not present MSK: no pitting edema, no clubbing Neuro: non-focal, moving all extremities Psych: cooperative, euthymic mood Hospital course: Patient is a 38-year-old male with a past medical history of hypertension ADHD, anxiety, depression, nicotine dependence, migraines, and polysubstance abuse with marijuana and methamphetamines. He presented to the emergency department on 11/05/23 with reports of hearing voices, depression, and having suicidal ideations. He underwent full evaluation in the emergency department. Upon arrival patient was found to have hypertensive urgency with blood pressure 222/135 and heart rate of 104. Patient does have history of methamphetamine abuse but states he has not used in a while. Patient was previously on amlodipine and lisinopril/hydrochlorothiazide for management of his blood pressure but states he stopped taking this medication a while ago because he ran out. Labs were completed and reviewed. CBC unremarkable. BMP revealing mild hypocarbia with bicarb of 21 and mild prerenal azotemia with BUN of 21 otherwise normal findings. Liver profile showing elevated AST of 98 and alkaline phosphatase of 126. Urine drug screen was negative. Coag PCR was positive. Patient petitioned in the emergency department and was initially supposed to be admitted to inpatient psychiatric unit, however secondary to patient having positive Covid test patient to be admitted under our services for medical management as psychiatric unit cannot accept patient until 10 days status post his positive Covid test. Assessment and Plan of Care: Hypertensive urgency Abnormal EKG, unchanged from previous -Possibly rebound hypertension from stopping taking previously prescribed ant ihypertensive medications vs methamphetamine use/abuse or withdrawal. -Continue lisinopril/hydrochlorothiazide 20/25 mg daily and cardiology starting patient on carvedilol 6.25 mg twice daily. Cardiology discontinued amlodipine secondary to patient's history of cardiomyopathy. -EKG was completed showing normal sinus rhythm at 69 bpm with T-wave inversion and ST depression in inferior leads 2, 3, and aVF as well as lateral lead V6. (Upon review of previous EKGs this is a previous known finding and unchanged when compared to EKG completed on 05/31/22). -Troponin was 0.032. -Cardiology was consulted for evaluation, reviewed documentation in chart. -Patient to remain on telemetry monitoring. -Echocardiogram shows severely increased left ventricular wall thickness, but recovery of left ventricular ejection fraction of 55-60%, no wall motion abnormalities Covid 19 infection -Patient asymptomatic -Provide patient with symptomatic care as needed. Nicotine dependence Continue nicotine patch 21 mg daily, recommend smoking cessation. Polysubstance abuse with methamphetamines and marijuana Recommend cessation of use Depression and anxiety Auditory hallucinations Suicidal ideations Suicide precautions in place Psychiatry following Elopement precautions in place Order placed for sitter to remain at bedside continuously. Data reviewed: -Vital signs reviewed. Blood pressure 150/78, heart rate 78, respiratory rate 18, temp 98.2F, SpO2 of 96% on room air. Patient petitioned in the emergency department on 11/05/23 and was initially admitted to inpatient psychiatric unit, however secondary to patient incidentally testing positive for Covid, He was transferred to medical unit under our services for medical management as psychiatric unit cannot accept patient until 10 days status post his positive Covid test. Psychiatry following. CODE STATUS: Full code DVT prophylaxis: Lovenox Anticipated discharge date: Clinical course to determine Anticipated discharge place: Clinical course to determine Objective - Vital Signs Vital signs: Vital Signs Temp 98.2 F 11/07/23 06:50 Pulse 69 11/07/23 06:50 Resp 17 11/07/23 06:50 BP 173/98 11/07/23 06:50 Pulse Ox 97 11/07/23 06:50 FiO2 Intake & Output 11/06/23 11/07/23 11/07/23 18:59 06:59 18:59 Other: Voiding Method Toilet # Voids 3 7 - Labs CBC & Chem 7: 11/05/23 01:54 11/05/23 01:54
--- NOTE | 2023-11-07 14:01 | P.PN ---
Progress Note - Text Progress Note Date: 11/07/23 Interval history: Patient was seen today for psychiatric follow-up on the medical floors for dima izoaffective disorder. Patient continues to appear to have a disheveled appearance. He was calmer today and more cooperative with conventional mortgage underwriter. States that his mood has been improving mildly since yesterday, continues to endorse anxiety during the day. He did state that he got "bad restless legs" at nighttime yesterday. States that he tends to get it after taking several different medications. We spoke about adding Requip which is okay with trying. States that he is trying to remain optimistic and wants to go to rehab upon discharge. Claims that he is able to sleep well for 5 hours last night. States that he is not having any suicidal thoughts today, denies any homicidal ideations. Continues to endorse some hallucinations auditory however these are improving. Denies any visual hallucinations. MENTAL STATUS EXAM: General Appearance: Patient appears to be short in stature, unshaven, stated age is alert, directable, and attempts to cooperate. Patient appears to have disheveled hygiene and grooming. Behavior: Patient is sitting on his bed, without any acute distress fair eye contact. Speech: Patient's speech is fluent. [place], soft tone, improving mildly Mood/Affect: Patient reports their mood is "depressed and anxious" . Mildly affect is congruent and constricted Suicidality/Homicidality: admitts to suicidal thoughts, no intent or plan, denies any homicidal ideations. Perceptions: Claims that he is hearing voices, denies any visual hallucinations Though content/process: Patient is logical, minimizing his mental health, Vague, improving. Goal oriented Memory and concentration: Alert and oriented 3, fair attention span. Judgment and insight: poor, improving. IMPRESSIONS: Schizoaffective disorder Methamphetamine use disorder in early remission Opioid Use Disorder, in remission cannabis use disorder Nicotine dependence PLAN: -At this time patient DOES meet criteria for inpatient psychiatric admission however due to being positive for covid, he will need to remain on the medical floors and will be followed by psychiatry. -Would recommend the following medication changes/additions: Continue paliperidone by mouth 3 mg daily at bedtime for psychosis/mood stabilization, with the plan to transition onto long-acting injection to help ensure compliance given patient's history. Benadryl 50 mg daily at bedtime for insomnia. increased Zoloft 100 mg daily at bedtime for mood/anxiety. added requip .25 dima qhs + 0.25 prn for RLS. -Continue 1:1 sitter for safety -Cannot leave AMA at this time. Patient will need a petition and certification if attempting to leave AMA. -farmworker brooder farm to provide patient with outpatient mental health/psychiatry resources for appropriate follow up upon discharge -Airplane Refueler spoke with patient about substance abuse and the harmful effects on medical and mental health, patient verbally understood and agreed. -farmworker brooder farm to provide patient substance use treatment resources including AA/NA meetings in the community. -farmworker brooder farm to provide patient with access line number to call for inpatient substance rehab -Communicated plan to patient's nurse -Will continue to follow along -Please contact with any questions.
[2023-11-07] MEDS: diphenhydrAMINE 25 MG CAP PO SCH (21:00)
[2023-11-07] MEDS: SERTRALINE 100 MG TAB PO SCH (21:01)
[2023-11-07] MEDS: PALIPERIDONE 3 MG TAB.ER.24 PO SCH (21:01)
[2023-11-08] MEDS: carvediloL 6.25 MG TAB PO SCH ×2 (06:08→17:53)
[2023-11-08 08:14] LABS: African American GFR (CKD) 89 (>60 ml/min/1.73 sqM); Anion Gap 10 mmol/L; Blood Urea Nitrogen 31 mg/dL (9-20); Calcium 8.5 mg/dL (8.4-10.2); Carbon Dioxide 24 mmol/L (22-30); Chloride 101 mmol/L (98-107); Glucose 105 mg/dL (74-99); Magnesium 2.2 mg/dL (1.6-2.3); Non-African American GFR(CKD) 77 (>60 ml/min/1.73 sqM); Potassium 4.3 mmol/L (3.5-5.1); Sodium 135 mmol/L (137-145)
[2023-11-08] MEDS: NICOTINE 21MG/24HR PATCH TRANSDERM SCH (08:53)
[2023-11-08] MEDS: ENOXAPARIN 40 MG/0.4 ML SYRINGE SQ SCH (08:53)
[2023-11-08] MEDS: LISINOPRIL-HCTZ 20-25 MG 1 EACH TAB PO SCH (08:53)
--- NOTE | 2023-11-08 13:38 | P.PN ---
Progress Note - Text Progress Note Date: 11/08/23 Interval history: Patient was seen today for psychiatric follow-up on the medical floors for dima izoaffective disorder. Patient appears to have improving appearance today, improving hygiene and grooming. She appears to be more calmer and appropriate in his affect. He claims that his mood and anxiety but improving. Claims of the voices have also been improving. He continues to state that his restless leg was "bad last night" and states that the Requip did help a bit. We spoke about increasing the dose but she is okay to try today. Fahad wants to remain on the current medications and was offered to read transition back to Seroquel however he declined. He continues to be motivated to receive the long-acting injectable prior to discharge. Continues to state that he wants to go to rehab. States that he is not having any suicidal thoughts today, denies any homicidal ideations. Denies any hallucinations auditory, Denies any visual hallucinations. MENTAL STATUS EXAM: General Appearance: Patient appears to be short in stature, unshaven, stated age is alert, directable, and attempts to cooperate. Patient appears to have disheveled hygiene and grooming. Behavior: Patient is sitting on his bed, without any acute distress fair eye contact. Speech: Patient's speech is fluent. [place], soft tone, improving mildly Mood/Affect: Patient reports their mood is "a bit better" . Mildly affect is congruent and constricted, improving Suicidality/Homicidality: admitts to suicidal thoughts, no intent or plan, denies any homicidal ideations. Perceptions: Claims that he is hearing voices, denies any visual hallucinations Though content/process: Patient is logical, minimizing his mental health, Vague, improving. Goal oriented Memory and concentration: Alert and oriented 3, fair attention span. Judgment and insight: poor, improving. IMPRESSIONS: Schizoaffective disorder Methamphetamine use disorder in early remission Opioid Use Disorder, in remission cannabis use disorder Nicotine dependence PLAN: -At this time patient DOES meet criteria for inpatient psychiatric admission however due to being positive for covid, he will need to remain on the medical floors and will be followed by psychiatry. -Would recommend the following medication changes/additions: Continue pali peridone by mouth 3 mg daily at bedtime for psychosis/mood stabilization, with the plan to transition onto long-acting injection to help ensure compliance given patient's history. Benadryl 50 mg daily at bedtime for insomnia. Zoloft 100 mg daily at bedtime for mood/anxiety. Increased requip 0.75 scheduled qhs + 0.25 prn for RLS. -Continue 1:1 sitter for safety -Cannot leave AMA at this time. Patient will need a petition and certification if attempting to leave AMA. -garment worker to provide patient with outpatient mental health/psychiatry resources for appropriate follow up upon discharge -Art Psychotherapist spoke with patient about substance abuse and the harmful effects on medical and mental health, patient verbally understood and agreed. -garment worker to provide patient substance use treatment resources including AA/NA meetings in the community. -garment worker to provide patient with access line number to call for inpatient substance rehab -Communicated plan to patient's nurse -Will continue to follow along -Please contact with any questions.
--- NOTE | 2023-11-08 15:35 | P.PN ---
Subjective Progress Note Date: 11/08/23 No new complaints today. Gen: awake, alert HEENT: normocephalic, atraumatic, good hearing acuity, moist mucous membranes Resp: good air exchange, breathing comfortably with no accessory muscle use CVS: good distal perfusion x 4, GI: soft, NTTP, ND : no SPT, no CVAT, jones catheter not present MSK: no pitting edema, no clubbing Neuro: non-focal, moving all extremities Psych: cooperative, euthymic mood Hospital course: Patient is a 38-year-old male with a past medical history of hypertension ADHD, anxiety, depression, nicotine dependence, migraines, and polysubstance abuse with marijuana and methamphetamines. He presented to the emergency department on 11/05/23 with reports of hearing voices, depression, and having suicidal ideations. He underwent full evaluation in the emergency department. Upon arrival patient was found to have hypertensive urgency with blood pressure 222/135 and heart rate of 104. Patient does have history of methamphetamine abuse but states he has not used in a while. Patient was previously on amlodipine and lisinopril/hydrochlorothiazide for management of his blood pressure but states he stopped taking this medication a while ago because he ran out. Labs were completed and reviewed. CBC unremarkable. BMP revealing mild hypocarbia with bicarb of 21 and mild prerenal azotemia with BUN of 21 otherwise normal findings. Liver profile showing elevated AST of 98 and alkaline phosphatase of 126. Urine drug screen was negative. Coag PCR was positive. Grayson wilkins petitioned in the emergency department and was initially supposed to be admitted to inpatient psychiatric unit, however secondary to patient having positive Covid test patient to be admitted under our services for medical management as psychiatric unit cannot accept patient until 10 days status post his positive Covid test. Assessment and Plan of Care: Hypertensive urgency Abnormal EKG, unchanged from previous -Possibly rebound hypertension from stopping taking previously prescribed an tihypertensive medications vs methamphetamine use/abuse or withdrawal. -Continue lisinopril/hydrochlorothiazide 20/25 mg daily and cardiology starting patient on carvedilol 6.25 mg twice daily. Cardiology discontinued amlodipine secondary to patient's history of cardiomyopathy. -EKG was completed showing normal sinus rhythm at 69 bpm with T-wave inversion and ST depression in inferior leads 2, 3, and aVF as well as lateral lead V6. (Upon review of previous EKGs this is a previous known finding and unchanged when compared to EKG completed on 05/31/22). -Troponin was 0.032. -Cardiology was consulted for evaluation, reviewed documentation in chart. -Patient to remain on telemetry monitoring. -Echocardiogram shows severely increased left ventricular wall thickness, but recovery of left ventricular ejection fraction of 55-60%, no wall motion abnormalities Covid 19 infection -Patient asymptomatic -Provide patient with symptomatic care as needed. Nicotine dependence Continue nicotine patch 21 mg daily, recommend smoking cessation. Polysubstance abuse with methamphetamines and marijuana Recommend cessation of use Depression and anxiety Auditory hallucinations Suicidal ideations Suicide precautions in place Psychiatry following Elopement precautions in place Order placed for sitter to remain at bedside continuously. Data reviewed: -Vital signs reviewed. Blood pressure 150/78, heart rate 78, respiratory rate 18, temp 98.2F, SpO2 of 96% on room air. Patient petitioned in the emergency department on 11/05/23 and was initially admitted to inpatient psychiatric unit, however secondary to patient incidentally testing positive for Covid, He was transferred to medical unit under our services for medical management as psychiatric unit cannot accept patient until 10 days status post his positive Covid test. Psychiatry following. CODE STATUS: Full code DVT prophylaxis: Lovenox Anticipated discharge date: Clinical course to determine Anticipated discharge place: Clinical course to determine Objective - Vital Signs Vital signs: Vital Signs Temp 98.4 F 11/08/23 14:02 Pulse 74 11/08/23 14:02 Resp 18 11/08/23 14:02 BP 137/88 11/08/23 14:02 Pulse Ox 97 11/08/23 14:02 FiO2 Intake & Output 11/07/23 11/08/23 11/08/23 18:59 06:59 18:59 Other: Voiding Method Toilet Toilet # Voids 3 2 - Labs CBC & Chem 7: 11/05/23 01:54 11/08/23 06:55 Labs: Abnormal Lab Results - Last 24 Hours (Table) 11/08/23 Range/Units 06:55 Sodium 135 L (137-145) mmol/L BUN 31 H (9-20) mg/dL Glucose 105 H (74-99) mg/dL
[2023-11-08] MEDS: diphenhydrAMINE 25 MG CAP PO SCH (20:01)
[2023-11-08] MEDS: SERTRALINE 100 MG TAB PO SCH (20:01)
[2023-11-08] MEDS: PALIPERIDONE 3 MG TAB.ER.24 PO SCH (21:02)
[2023-11-09] MEDS: carvediloL 6.25 MG TAB PO SCH ×2 (06:16→16:51)
[2023-11-09] MEDS: LISINOPRIL-HCTZ 20-25 MG 1 EACH TAB PO SCH (07:32)
[2023-11-09] MEDS: ENOXAPARIN 40 MG/0.4 ML SYRINGE SQ SCH (07:32)
[2023-11-09] MEDS: NICOTINE 21MG/24HR PATCH TRANSDERM SCH (07:32)
--- NOTE | 2023-11-09 14:45 | P.PN ---
Subjective Progress Note Date: 11/09/23 No new complaints today. Gen: awake, alert HEENT: normocephalic, atraumatic, good hearing acuity, moist mucous membranes Resp: good air exchange, breathing comfortably with no accessory muscle use CVS: good distal perfusion x 4, GI: soft, NTTP, ND : no SPT, no CVAT, jones catheter not present MSK: no pitting edema, no clubbing Neuro: non-focal, moving all extremities Psych: cooperative, euthymic mood Hospital course: Patient is a 38-year-old male with a past medical history of hypertension ADHD, anxiety, depression, nicotine dependence, migraines, and polysubstance abuse with marijuana and methamphetamines. He presented to the emergency department on 11/05/23 with reports of hearing voices, depression, and having suicidal ideations. He underwent full evaluation in the emergency department. Upon arrival patient was found to have hypertensive urgency with blood pressure 222/135 and heart rate of 104. Patient does have history of methamphetamine abuse but states he has not used in a while. Patient was previously on amlodipine and lisinopril/hydrochlorothiazide for management of his blood pressure but states he stopped taking this medication a while ago because he ran out. Labs were completed and reviewed. CBC unremarkable. BMP revealing mild hypocarbia with bicarb of 21 and mild prerenal azotemia with BUN of 21 otherwise normal findings. Liver profile showing elevated AST of 98 and alkaline phosphatase of 126. Urine drug screen was negative. Coag PCR was positive. Grayson iwlkins petitioned in the emergency department and was initially supposed to be admitted to inpatient psychiatric unit, however secondary to patient having positive Covid test patient to be admitted under our services for medical management as psychiatric unit cannot accept patient until 10 days status post his positive Covid test. Assessment and Plan of Care: Hypertensive urgency Abnormal EKG, unchanged from previous -Possibly rebound hypertension from stopping taking previously prescribed an tihypertensive medications vs methamphetamine use/abuse or withdrawal. -Continue lisinopril/hydrochlorothiazide 20/25 mg daily and cardiology starting patient on carvedilol 6.25 mg twice daily. Cardiology discontinued amlodipine secondary to patient's history of cardiomyopathy. -EKG was completed showing normal sinus rhythm at 69 bpm with T-wave inversion and ST depression in inferior leads 2, 3, and aVF as well as lateral lead V6. (Upon review of previous EKGs this is a previous known finding and unchanged when compared to EKG completed on 05/31/22). -Troponin was 0.032. -Cardiology was consulted for evaluation, reviewed documentation in chart. -Patient to remain on telemetry monitoring. -Echocardiogram shows severely increased left ventricular wall thickness, but recovery of left ventricular ejection fraction of 55-60%, no wall motion abnormalities Covid 19 infection -Patient asymptomatic -Provide patient with symptomatic care as needed. Nicotine dependence Continue nicotine patch 21 mg daily, recommend smoking cessation. Polysubstance abuse with methamphetamines and marijuana Recommend cessation of use Depression and anxiety Auditory hallucinations Suicidal ideations Suicide precautions in place Psychiatry following Elopement precautions in place Order placed for sitter to remain at bedside continuously. Data reviewed: -Vital signs reviewed. Blood pressure 150/78, heart rate 78, respiratory rate 18, temp 98.2F, SpO2 of 96% on room air. Patient petitioned in the emergency department on 11/05/23 and was initially admitted to inpatient psychiatric unit, however secondary to patient incidentally testing positive for Covid, He was transferred to medical unit under our services for medical management as psychiatric unit cannot accept patient until 10 days status post his positive Covid test. Psychiatry following. CODE STATUS: Full code DVT prophylaxis: Lovenox Anticipated discharge date: Clinical course to determine Anticipated discharge place: Clinical course to determine Objective - Vital Signs Vital signs: Vital Signs Temp 98.4 F 11/09/23 07:27 Pulse 64 11/09/23 13:36 Resp 16 11/09/23 13:36 BP 122/73 11/09/23 13:36 Pulse Ox 100 11/09/23 13:36 FiO2 Intake & Output 11/08/23 11/09/23 11/09/23 18:59 06:59 18:59 Other: # Voids 5 5 # Bowel Movements 1 - Labs CBC & Chem 7: 11/05/23 01:54 11/08/23 06:55
[2023-11-09] MEDS ORDERED: diphenhydrAMINE 50 MG CAP PO PRN (15:01)
--- NOTE | 2023-11-09 15:08 | P.PN ---
Progress Note - Text Progress Note Date: 11/09/23 Interval history: Patient was seen today for psychiatric follow-up on the medical floors for dima izoaffective disorder. Patient claims that he is feeling fairly tired today. He states that he had a difficult time again sleeping last night due to restless leg symptoms. He states that he wants to give up on the paliperidone and wants to resume back on the Seroquel. He states that Requip did help a bit. States that his appetite is fair, he did appear to be fairly tired today, does have a disheveled appearance. Continues to state that he wants to go to rehab, however has not made the call yet to [facility] for the access line to get an intake. States that he is not having any suicidal thoughts today, denies any homicidal ideations. Denies any hallucinations auditory, Denies any visual hallucinations. MENTAL STATUS EXAM: General Appearance: Patient appears to be short in stature, unshaven, stated age is alert, directable, and attempts to cooperate. Patient appears to have disheveled hygiene and grooming. Behavior: Patient is sitting on his bed, without any acute distress fair eye contact. Speech: Patient's speech is fluent. [place], soft tone, improving mildly Mood/Affect: Patient reports their mood is "same" . Mildly affect is congruent and constricted, improving Suicidality/Homicidality: admitts to suicidal thoughts, no intent or plan, denies any homicidal ideations. Perceptions: Claims that he is hearing voices, denies any visual hallucinations Though content/process: Patient is logical, minimizing his mental health, Vague, improving. Goal oriented Memory and concentration: Alert and oriented 3, fair attention span. Judgment and insight: poor, improving. IMPRESSIONS: Schizoaffective disorder Methamphetamine use disorder in early remission Opioid Use Disorder, in remission cannabis use disorder Nicotine dependence PLAN: -At this time patient DOES meet criteria for inpatient psychiatric admission however due to being positive for covid, he will need to remain on the medical floors and will be followed by psychiatry. -Would recommend the following medication changes/additions: Discontinue paliperidone and replace with Seroquel as it has helped him previously and patient requested to be back on it, 50 mg daily at bedtime for mood stabilizatio n/sleep. changed Benadryl 50 mg daily prn at bedtime for insomnia. Zoloft 100 mg daily at bedtime for mood/anxiety. decreased requip 0.5 scheduled qhs + 0.25 prn for RLS. -Continue 1:1 sitter for safety -Cannot leave AMA at this time. Patient will need a petition and certification if attempting to leave AMA. -street worker to provide patient with outpatient mental health/psychiatry re sources for appropriate follow up upon discharge -Log Chain Worker spoke with patient about substance abuse and the harmful effects on medical and mental health, patient verbally understood and agreed. -street worker to provide patient substance use treatment resources including AA/NA meetings in the community. -street worker to provide patient with access line number to call for inpatient substance rehab -Communicated plan to patient's nurse -Will continue to follow along tomorrow and possibly sign off in 1-2 days once patient gets an intake date for rehab and improves psychiatrically. -Please contact with any questions.
[2023-11-09] MEDS: SERTRALINE 100 MG TAB PO SCH (20:12)
[2023-11-09] MEDS ORDERED: QUEtiapine 50 MG TAB PO SCH (21:00)
[2023-11-10] MEDS: carvediloL 6.25 MG TAB PO SCH ×2 (06:30→16:48)
[2023-11-10] MEDS: LISINOPRIL-HCTZ 20-25 MG 1 EACH TAB PO SCH (08:25)
[2023-11-10] MEDS: ENOXAPARIN 40 MG/0.4 ML SYRINGE SQ SCH (08:25)
[2023-11-10] MEDS: NICOTINE 21MG/24HR PATCH TRANSDERM SCH (08:25)
--- NOTE | 2023-11-10 11:52 | P.PN ---
Subjective Progress Note Date: 11/10/23 No new complaints today. Gen: awake, alert HEENT: normocephalic, atraumatic, good hearing acuity, moist mucous membranes Resp: good air exchange, breathing comfortably with no accessory muscle use CVS: good distal perfusion x 4, GI: soft, NTTP, ND : no SPT, no CVAT, jones catheter not present MSK: no pitting edema, no clubbing Neuro: non-focal, moving all extremities Psych: cooperative, euthymic mood Hospital course: Patient is a 38-year-old male with a past medical history of hypertension ADHD, anxiety, depression, nicotine dependence, migraines, and polysubstance abuse with marijuana and methamphetamines. He presented to the emergency department on 11/05/23 with reports of hearing voices, depression, and having suicidal ideations. He underwent full evaluation in the emergency department. Upon arrival patient was found to have hypertensive urgency with blood pressure 222/135 and heart rate of 104. Patient does have history of methamphetamine abuse but states he has not used in a while. Patient was previously on amlodipine and lisinopril/hydrochlorothiazide for management of his blood pressure but states he stopped taking this medication a while ago because he ran out. Labs were completed and reviewed. CBC unremarkable. BMP revealing mild hypocarbia with bicarb of 21 and mild prerenal azotemia with BUN of 21 otherwise normal findings. Liver profile showing elevated AST of 98 and alkaline phosphatase of 126. Urine drug screen was negative. Coag PCR was positive. [facility] wilkins petitioned in the emergency department and was initially supposed to be admitted to inpatient psychiatric unit, however secondary to patient having positive Covid test patient to be admitted under our services for medical management as psychiatric unit cannot accept patient until 10 days status post his positive Covid test. Assessment and Plan of Care: Hypertensive urgency Abnormal EKG, unchanged from previous -Possibly rebound hypertension from stopping taking previously prescribed an tihypertensive medications vs methamphetamine use/abuse or withdrawal. -Continue lisinopril/hydrochlorothiazide 20/25 mg daily and cardiology starting patient on carvedilol 6.25 mg twice daily. Cardiology discontinued amlodipine secondary to patient's history of cardiomyopathy. -EKG was completed showing normal sinus rhythm at 69 bpm with T-wave inversion and ST depression in inferior leads 2, 3, and aVF as well as lateral lead V6. (Upon review of previous EKGs this is a previous known finding and unchanged when compared to EKG completed on 05/31/22). -Troponin was 0.032. -Cardiology was consulted for evaluation, reviewed documentation in chart. -Patient to remain on telemetry monitoring. -Echocardiogram shows severely increased left ventricular wall thickness, but recovery of left ventricular ejection fraction of 55-60%, no wall motion abnormalities Covid 19 infection -Patient asymptomatic -Provide patient with symptomatic care as needed. Nicotine dependence Continue nicotine patch 21 mg daily, recommend smoking cessation. Polysubstance abuse with methamphetamines and marijuana Recommend cessation of use Depression and anxiety Auditory hallucinations Suicidal ideations Suicide precautions in place Psychiatry following Elopement precautions in place Order placed for sitter to remain at bedside continuously. Data reviewed: -Vital signs reviewed. Blood pressure 150/78, heart rate 78, respiratory rate 18, temp 98.2F, SpO2 of 96% on room air. Patient petitioned in the emergency department on 11/05/23 and was initially admitted to inpatient psychiatric unit, however secondary to patient incidentally testing positive for Covid, He was transferred to medical unit under our services for medical management as psychiatric unit cannot accept patient until 10 days status post his positive Covid test. Psychiatry following. CODE STATUS: Full code DVT prophylaxis: Lovenox Anticipated discharge date: Clinical course to determine Anticipated discharge place: Clinical course to determine Objective - Vital Signs Vital signs: Vital Signs Temp 98.1 F 11/10/23 08:10 Pulse 78 11/10/23 08:10 Resp 18 11/10/23 08:10 BP 151/98 11/10/23 08:10 Pulse Ox 97 11/10/23 08:10 FiO2 Intake & Output 11/09/23 11/10/23 11/10/23 18:59 06:59 18:59 Intake Total 240 Balance 240 Intake: Oral 240 Other: # Voids 5 # Bowel Movements 1 - Labs CBC & Chem 7: 11/05/23 01:54 11/08/23 06:55
--- NOTE | 2023-11-10 13:09 | P.PN ---
Subjective Progress Note Date: 11/10/23 Principal diagnosis: Schizoaffective disorder Methamphetamine use disorder in early remission Opioid Use Disorder, in remission cannabis use disorder Nicotine dependence Interval history: Patient was seen today for psychiatric follow-up on the medical floors for schizoaffective disorder. Patient claims that he is feeling less tired today. He says that Seroquel helped but they gave it to him about 8 o'clock and it seemed to wear off about 11, then he had trouble getting back to sleep He states that he had a difficult time again sleeping last night due to restless leg symptoms. He states that Requip did help a bit. States that his appetite is fair, he did appear to be fairly tired today, does have a disheveled appearance. Continues to state that he wants to go to rehab, however has not made the call yet to [facility] for the access line to get an intake. States that he is not having any suicidal thoughts today, denies any homicidal ideations. Denies any hallucinations auditory, Denies any visual hallucinations. He is very positive about the Zoloft and thinks is already helping him be more even keel MENTAL STATUS EXAM: General Appearance: Patient appears to be short in stature, unshaven, stated age is alert, directable, and attempts to cooperate. Patient appears to have disheveled hygiene and grooming. Behavior: Patient is sitting on his bed, without any acute distress fair eye contact. Speech: Patient's speech is fluent. [place], soft tone, improving mildly Mood/Affect: Patient reports their mood is "same" . Mildly affect is congruent and constricted, improving Suicidality/Homicidality: admitts to suicidal thoughts, no intent or plan, de nies any homicidal ideations. Perceptions: Claims that he is hearing voices, denies any visual hallucinations Though content/process: Patient is logical, minimizing his mental health, Vague, improving. Goal oriented Memory and concentration: Alert and oriented 3, fair attention span. Judgment and insight: poor, improving. IMPRESSIONS: Schizoaffective disorder Methamphetamine use disorder in early remission Opioid Use Disorder, in remission cannabis use disorder Nicotine dependence PLAN: -At this time patient DOES meet criteria for inpatient psychiatric admission however due to being positive for covid, he will need to remain on the medical floors and will be followed by psychiatry. -Would recommend the following medication changes/additions: Discontinue paliperidone and replace with Seroquel as it has helped him previously and patient requested to be back on it, increase to 100 mg daily at bedtime for mood stabilization/sleep. changed Benadryl 50 mg daily prn at bedtime for insomnia. Zoloft 100 mg daily at bedtime for mood/anxiety. decreased requip 0.5 scheduled qhs + 0.25 prn for RLS. -Continue 1:1 sitter for safety -Cannot leave AMA at this time. Patient will need a petition and certification if attempting to leave AMA. -drafting layout worker to provide patient with outpatient mental health/psychiatry resources for appropriate follow up upon discharge -Clinical Trial Specialist spoke with patient about substance abuse and the harmful effects on medical and mental health, patient verbally understood and agreed. -drafting layout worker to provide patient substance use treatment resources including AA/NA meetings in the community. -drafting layout worker to provide patient with access line number to call for inpatient substance rehab -Communicated plan to patient's nurse -Will continue to follow along tomorrow and possibly sign off in 1-2 days once patient gets an intake date for rehab and improves psychiatrically. -Please contact with any questions. Objective - Vital Signs Vital signs: Vital Signs Temp 98.1 F 11/10/23 08:10 Pulse 78 11/10/23 08:10 Resp 18 11/10/23 08:10 BP 151/98 11/10/23 08:10 Pulse Ox 97 11/10/23 08:10 FiO2 Intake & Output 11/09/23 11/10/23 11/10/23 18:59 06:59 18:59 Intake Total 240 Balance 240 Intake: Oral 240 Other: # Voids 5 # Bowel Movements 1 - Labs CBC & Chem 7: 11/05/23 01:54 11/08/23 06:55
[2023-11-10] MEDS: SERTRALINE 100 MG TAB PO SCH (20:17)
[2023-11-10] MEDS: QUEtiapine 100 MG TAB PO SCH (21:49)
[2023-11-11] MEDS: LISINOPRIL-HCTZ 20-25 MG 1 EACH TAB PO SCH (09:22)
[2023-11-11] MEDS: carvediloL 6.25 MG TAB PO SCH ×2 (09:22→17:14)
[2023-11-11] MEDS: NICOTINE 21MG/24HR PATCH TRANSDERM SCH ×2 (09:23→09:25)
[2023-11-11] MEDS: ENOXAPARIN 40 MG/0.4 ML SYRINGE SQ SCH (09:23)
--- NOTE | 2023-11-11 10:42 | P.PN ---
Subjective Progress Note Date: 11/11/23 No new complaints today. Gen: awake, alert HEENT: normocephalic, atraumatic, good hearing acuity, moist mucous membranes Resp: good air exchange, breathing comfortably with no accessory muscle use CVS: good distal perfusion x 4, GI: soft, NTTP, ND : no SPT, no CVAT, jones catheter not present MSK: no pitting edema, no clubbing Neuro: non-focal, moving all extremities Psych: cooperative, euthymic mood Hospital course: Patient is a 38-year-old male with a past medical history of hypertension ADHD, anxiety, depression, nicotine dependence, migraines, and polysubstance abuse with marijuana and methamphetamines. He presented to the emergency department on 11/05/23 with reports of hearing voices, depression, and having suicidal ideations. He underwent full evaluation in the emergency department. Upon arrival patient was found to have hypertensive urgency with blood pressure 222/135 and heart rate of 104. Patient does have history of methamphetamine abuse but states he has not used in a while. Patient was previously on amlodipine and lisinopril/hydrochlorothiazide for management of his blood pressure but states he stopped taking this medication a while ago because he ran out. Labs were completed and reviewed. CBC unremarkable. BMP revealing mild hypocarbia with bicarb of 21 and mild prerenal azotemia with BUN of 21 otherwise normal findings. Liver profile showing elevated AST of 98 and alkaline phosphatase of 126. Urine drug screen was negative. Coag PCR was positive. Grayson wilkins petitioned in the emergency department and was initially supposed to be admitted to inpatient psychiatric unit, however secondary to patient having positive Covid test patient to be admitted under our services for medical management as psychiatric unit cannot accept patient until 10 days status post his positive Covid test. Assessment and Plan of Care: Hypertensive urgency Abnormal EKG, unchanged from previous -Possibly rebound hypertension from stopping taking previously prescribed an tihypertensive medications vs methamphetamine use/abuse or withdrawal. -Continue lisinopril/hydrochlorothiazide 20/25 mg daily and cardiology starting patient on carvedilol 6.25 mg twice daily. Cardiology discontinued amlodipine secondary to patient's history of cardiomyopathy. -EKG was completed showing normal sinus rhythm at 69 bpm with T-wave inversion and ST depression in inferior leads 2, 3, and aVF as well as lateral lead V6. (Upon review of previous EKGs this is a previous known finding and unchanged when compared to EKG completed on 05/31/22). -Troponin was 0.032. -Cardiology was consulted for evaluation, reviewed documentation in chart. -Patient to remain on telemetry monitoring. -Echocardiogram shows severely increased left ventricular wall thickness, but recovery of left ventricular ejection fraction of 55-60%, no wall motion abnormalities Covid 19 infection -Patient asymptomatic -Provide patient with symptomatic care as needed. Nicotine dependence Continue nicotine patch 21 mg daily, recommend smoking cessation. Polysubstance abuse with methamphetamines and marijuana Recommend cessation of use Depression and anxiety Auditory hallucinations Suicidal ideations Suicide precautions in place Psychiatry following Elopement precautions in place Order placed for sitter to remain at bedside continuously. Data reviewed: -Vital signs reviewed. Blood pressure 150/78, heart rate 78, respiratory rate 18, temp 98.2F, SpO2 of 96% on room air. Patient petitioned in the emergency department on 11/05/23 and was initially admitted to inpatient psychiatric unit, however secondary to patient incidentally testing positive for Covid, He was transferred to medical unit under our services for medical management as psychiatric unit cannot accept patient until 10 days status post his positive Covid test. Psychiatry following. CODE STATUS: Full code DVT prophylaxis: Lovenox Anticipated discharge date: Clinical course to determine Anticipated discharge place: Clinical course to determine Objective - Vital Signs Vital signs: Vital Signs Temp 97.8 F 11/11/23 07:06 Pulse 83 11/11/23 07:06 Resp 18 11/11/23 07:06 BP 163/109 11/11/23 07:06 Pulse Ox 96 11/11/23 07:06 FiO2 Intake & Output 11/10/23 11/11/23 11/11/23 18:59 06:59 18:59 Intake Total 118 Balance 118 Intake: Oral 118 Other: # Voids 4 4 - Labs CBC & Chem 7: 11/05/23 01:54 11/08/23 06:55
[2023-11-11] MEDS: SERTRALINE 100 MG TAB PO SCH (22:09)
[2023-11-11] MEDS: QUEtiapine 100 MG TAB PO SCH (22:09)
[2023-11-12] MEDS: ENOXAPARIN 40 MG/0.4 ML SYRINGE SQ SCH (07:46)
[2023-11-12] MEDS: LISINOPRIL-HCTZ 20-25 MG 1 EACH TAB PO SCH (07:46)
[2023-11-12] MEDS: carvediloL 6.25 MG TAB PO SCH ×2 (07:46→16:43)
[2023-11-12] MEDS: NICOTINE 21MG/24HR PATCH TRANSDERM SCH (07:46)
--- NOTE | 2023-11-12 10:39 | P.PN ---
Subjective Progress Note Date: 11/12/23 No new complaints today. Gen: awake, alert HEENT: normocephalic, atraumatic, good hearing acuity, moist mucous membranes Resp: good air exchange, breathing comfortably with no accessory muscle use CVS: good distal perfusion x 4, GI: soft, NTTP, ND : no SPT, no CVAT, jones catheter not present MSK: no pitting edema, no clubbing Neuro: non-focal, moving all extremities Psych: cooperative, euthymic mood Hospital course: Patient is a 38-year-old male with a past medical history of hypertension ADHD, anxiety, depression, nicotine dependence, migraines, and polysubstance abuse with marijuana and methamphetamines. He presented to the emergency department on 11/05/23 with reports of hearing voices, depression, and having suicidal ideations. He underwent full evaluation in the emergency department. Upon arrival patient was found to have hypertensive urgency with blood pressure 222/135 and heart rate of 104. Patient does have history of methamphetamine abuse but states he has not used in a while. Patient was previously on amlodipine and lisinopril/hydrochlorothiazide for management of his blood pressure but states he stopped taking this medication a while ago because he ran out. Labs were completed and reviewed. CBC unremarkable. BMP revealing mild hypocarbia with bicarb of 21 and mild prerenal azotemia with BUN of 21 otherwise normal findings. Liver profile showing elevated AST of 98 and alkaline phosphatase of 126. Urine drug screen was negative. Coag PCR was positive. Grayson wilkins petitioned in the emergency department and was initially supposed to be admitted to inpatient psychiatric unit, however secondary to patient having positive Covid test patient to be admitted under our services for medical management as psychiatric unit cannot accept patient until 10 days status post his positive Covid test. Assessment and Plan of Care: Hypertensive urgency Abnormal EKG, unchanged from previous -Possibly rebound hypertension from stopping taking previously prescribed an tihypertensive medications vs methamphetamine use/abuse or withdrawal. -Continue lisinopril/hydrochlorothiazide 20/25 mg daily and cardiology starting patient on carvedilol 6.25 mg twice daily. Cardiology discontinued amlodipine secondary to patient's history of cardiomyopathy. -EKG was completed showing normal sinus rhythm at 69 bpm with T-wave inversion and ST depression in inferior leads 2, 3, and aVF as well as lateral lead V6. (Upon review of previous EKGs this is a previous known finding and unchanged when compared to EKG completed on 05/31/22). -Troponin was 0.032. -Cardiology was consulted for evaluation, reviewed documentation in chart. -Patient to remain on telemetry monitoring. -Echocardiogram shows severely increased left ventricular wall thickness, but recovery of left ventricular ejection fraction of 55-60%, no wall motion abnormalities Covid 19 infection -Patient asymptomatic -Provide patient with symptomatic care as needed. Nicotine dependence Continue nicotine patch 21 mg daily, recommend smoking cessation. Polysubstance abuse with methamphetamines and marijuana Recommend cessation of use Depression and anxiety Auditory hallucinations Suicidal ideations Suicide precautions in place Psychiatry following Elopement precautions in place Order placed for sitter to remain at bedside continuously. Data reviewed: -Vital signs reviewed. Blood pressure 150/78, heart rate 78, respiratory rate 18, temp 98.2F, SpO2 of 96% on room air. Patient petitioned in the emergency department on 11/05/23 and was initially admitted to inpatient psychiatric unit, however secondary to patient incidentally testing positive for Covid, He was transferred to medical unit under our services for medical management as psychiatric unit cannot accept patient until 10 days status post his positive Covid test. Psychiatry following. CODE STATUS: Full code DVT prophylaxis: Lovenox Anticipated discharge date: Clinical course to determine Anticipated discharge place: Clinical course to determine Objective - Vital Signs Vital signs: Vital Signs Temp 99.2 F 11/12/23 07:45 Pulse 72 11/12/23 07:45 Resp 18 11/12/23 07:45 BP 159/98 11/12/23 07:45 Pulse Ox 95 11/12/23 07:45 FiO2 Intake & Output 11/11/23 11/12/23 11/12/23 18:59 06:59 18:59 Other: # Voids 6 2 # Bowel Movements 2 - Labs CBC & Chem 7: 11/05/23 01:54 11/08/23 06:55
[2023-11-12] MEDS: SERTRALINE 100 MG TAB PO SCH (22:04)
[2023-11-12] MEDS: QUEtiapine 100 MG TAB PO SCH (22:04)
[2023-11-13] MEDS: carvediloL 6.25 MG TAB PO SCH ×2 (06:41→18:19)
[2023-11-13 07:52] VITALS: BMI 29.8
[2023-11-13] MEDS: ENOXAPARIN 40 MG/0.4 ML SYRINGE SQ SCH (08:57)
[2023-11-13] MEDS: NICOTINE 21MG/24HR PATCH TRANSDERM SCH (08:57)
[2023-11-13] MEDS: LISINOPRIL-HCTZ 20-25 MG 1 EACH TAB PO SCH (08:57)
--- NOTE | 2023-11-13 18:03 | P.PN ---
Subjective Progress Note Date: 11/13/23 Hospital course: Patient is a very pleasant 38-year-old male with a past medical history of hypertension ADHD, anxiety, depression, nicotine dependence, migraines, and polysubstance abuse with marijuana and methamphetamines. He presented to the emergency department on 11/05/23 with reports of hearing voices, depression, and having suicidal ideations. He underwent full evaluation in the emergency department. Upon arrival patient was found to have hypertensive urgency with blood pressure 222/135 and heart rate of 104. Patient does have history of methamphetamine abuse but states he has not used in a while. Patient was previously on amlodipine and lisinopril/hydrochlorothiazide for management of his blood pressure but states he stopped taking this medication a while ago b ecause he ran out. Labs were completed and reviewed. CBC unremarkable. BMP revealing mild hypocarbia with bicarb of 21 and mild prerenal azotemia with BUN of 21 otherwise normal findings. Liver profile showing elevated AST of 98 and alkaline phosphatase of 126. Urine drug screen was negative. Coag PCR was positive. Patient petitioned in the emergency department and was initially supposed to be admitted to inpatient psychiatric unit, however secondary to patient having positive Covid test patient to be admitted under our services for medical management as psychiatric unit cannot accept patient until 10 days status post his positive Covid test. Physical exam: Vital signs reviewed and stable. General: Nontoxic, no distress and appears stated age. Derm: Skin warm and dry, normal coloration for ethnicity. Head: Atraumatic, normocephalic and symmetric. Eyes: EOMs intact, no lid lag, and anicteric sclera Mouth: no lip lesions, mucus membranes moist Cardiovascular: regular rate and rhythm with normal S1S2, no murmur, positive posterior tibial pulses bilaterally, and cap refill < 2 seconds. Lungs: Respirations even, regular, and unlabored on room air. Lungs CTA bilaterally, no rhonchi, no rales, no wheezing, and no accessory muscle usage. Abdominal: soft, nontender to palpation, no guarding, no appreciable organomegaly Ext: ROM intact. No gross muscle atrophy, no edema, no contractures Neuro: Speech clear, face symmetrical and CN II-XII grossly intact with no noted focal neuro deficits Psych: Alert and oriented to person, place, time, and situation. Appropriate and pleasant affect. Assessment and Plan of Care: Hypertensive urgency Abnormal EKG, unchanged from previous -Hypertensive urgency is believed to have resulted from multi-factorial secondary to rebound hypertension from stopping taking previously prescribed antihypertensive medications accompanied by methamphetamine use/abuse and withdrawal. -Continue lisinopril/hydrochlorothiazide 20/25 mg daily and carvedilol 6.25 mg twice daily. -EKG was completed showing normal sinus rhythm at 69 bpm with T-wave inversion and ST depression in inferior leads 2, 3, and aVF as well as lateral lead V6. (Upon review of previous EKGs this is a previous known finding and unchanged when compared to EKG completed on 05/31/22). -Troponin was 0.032. -Cardiology evaluated clearing patient from cardiac perspective for outpatient follow-up in their office in 2 weeks. -Patient to remain on telemetry monitoring. -Echocardiogram shows severely increased left ventricular wall thickness, but recovery of left ventricular ejection fraction of 55-60%, no wall motion abnormalities Covid 19 infection -Patient remains asymptomatic -Provide patient with symptomatic care as needed. Nicotine dependence -Continue nicotine patch 21 mg daily, recommend smoking cessation. Polysubstance abuse with methamphetamines and marijuana -Recommend cessation of use Depression and anxiety Auditory hallucinations Suicidal ideations -Suicide precautions in place -Psychiatry following -Elopement precautions in place -Order placed for sitter to remain at bedside continuously. Data reviewed: -Vital signs reviewed. Blood pressure 159/94, heart rate 73, respiratory rate 20, temp 98.8F, SpO2 of 98% on room air. CODE STATUS: Full code DVT prophylaxis: Lovenox Anticipated discharge date: Patient will be eligible for discharge to inpatient mental health unit on 11/15/23, 10 days status post positive Covid testing Anticipated discharge place: Inpatient psychiatric unit Patient was seen independently by Nurse Pracitioner. This document was prepared using [employer] dictation software. Please allow for errors in director of curriculum and instruction, while rare they do occur. Donell Funes NP rendered care for this patient independently, reviewed the findings and plan as documented in the note above. I did not physically speak with or examine the patient on this date. Objective - Vital Signs Vital signs: Vital Signs Temp 98.8 F 11/13/23 07:12 Pulse 73 11/13/23 07:12 Resp 20 11/13/23 07:12 BP 159/94 11/13/23 07:12 Pulse Ox 98 11/13/23 07:12 FiO2 Intake & Output 12/25/23 12/26/23 12/26/23 18:59 06:59 18:59 Weight 83.915 kg Other: # Voids 4 3 - Labs CBC & Chem 7: 11/14/23 05:43 11/14/23 05:43
[2023-11-13] MEDS: SERTRALINE 100 MG TAB PO SCH (20:12)
[2023-11-13] MEDS: QUEtiapine 100 MG TAB PO SCH (22:03)
[2023-11-14] MEDS: carvediloL 6.25 MG TAB PO SCH ×2 (05:54→17:06)
[2023-11-14] MEDS: NICOTINE 21MG/24HR PATCH TRANSDERM SCH (08:20)
[2023-11-14] MEDS: ENOXAPARIN 40 MG/0.4 ML SYRINGE SQ SCH (08:20)
[2023-11-14] MEDS: LISINOPRIL-HCTZ 20-25 MG 1 EACH TAB PO SCH (08:20)
[2023-11-14 08:35] LABS: HCT 46.9 % (39.6-50.0); HGB 16.2 g/dL (13.0-17.0); MCH 31.8 pg (27.0-32.0); MCHC 34.5 g/dL (32.0-37.0); Mean Platelet Volume 11.5 FL (9.5-12.2); NRBC Per 100 WBC 0 X 10*3/uL (0.00-0.01); Platelet Count 217 X 10*3/uL (140-440); RDW 13.2 % (11.5-14.5); WBC 7.35 X 10*3/uL (4.50-10.00)
[2023-11-14 08:46] LABS: ALT 164 U/L (10-49); AST 96 U/L (14-35); Albumin 4.3 g/dL (3.8-4.9); Albumin/Globulin Ratio 1.34 Ratio (1.60-3.17); Alkaline Phosphatase 120 U/L (41-126); BUN/Creat Ratio 24.92 Ratio (12.00-20.00); Blood Urea Nitrogen 32.4 mg/dL (9.0-27.0); Calcium 9.5 mg/dL (8.7-10.3); Carbon Dioxide 25.9 mmol/L (21.6-31.8); Chloride 102 mmol/L (96-109); Globulin 3.2 g/dL (1.6-3.3); Glucose 90 mg/dL (70-110); Magnesium 2.1 mg/dL (1.5-2.4); Potassium 4.5 mmol/L (3.5-5.5); Sodium 140 mmol/L (135-145); Total Bilirubin 0.3 mg/dL (0.3-1.2); Total Protein 7.5 g/dL (6.2-8.2)
--- NOTE | 2023-11-14 15:53 | P.PN ---
Subjective Progress Note Date: 11/14/23 Hospital course: Patient is a very pleasant 38-year-old male with a past medical history of hypertension ADHD, anxiety, depression, nicotine dependence, migraines, and polysubstance abuse with marijuana and methamphetamines. He presented to the emergency department on 11/05/23 with reports of hearing voices, depression, and having suicidal ideations. He underwent full evaluation in the emergency department. Upon arrival patient was found to have hypertensive urgency with blood pressure 222/135 and heart rate of 104. Patient does have history of methamphetamine abuse but states he has not used in a while. Patient was previously on amlodipine and lisinopril/hydrochlorothiazide for management of his blood pressure but states he stopped taking this medication a while ago b ecause he ran out. Labs were completed and reviewed. CBC unremarkable. BMP revealing mild hypocarbia with bicarb of 21 and mild prerenal azotemia with BUN of 21 otherwise normal findings. Liver profile showing elevated AST of 98 and alkaline phosphatase of 126. Urine drug screen was negative. Coag PCR was positive. Patient petitioned in the emergency department and was initially supposed to be admitted to inpatient psychiatric unit, however secondary to patient having positive Covid test patient to be admitted under our services for medical management as psychiatric unit cannot accept patient until 10 days status post his positive Covid test. Patient is eligible for discharge to [facility] mental health unit on 11/15/23. Physical exam: Patient seen and fully evaluated at bedside. Sitter also remains at bedside maintaining safety. Patient remains free from any complaints or concerns at this time. Patient expresses frustration as he has not been seen by psychiatrist. RN paging psychiatry at this time. Patient opted at that tomorrow is day 10 and that he will be eligible for discharge to inpatient mental health unit tomorrow morning. Vital signs reviewed and stable. General: Nontoxic, no distress and appears stated age. Derm: Skin warm and dry, normal coloration for ethnicity. Head: Atraumatic, normocephalic and symmetric. Eyes: EOMs intact, no lid lag, and anicteric sclera Mouth: no lip lesions, mucus membranes moist Cardiovascular: regular rate and rhythm with normal S1S2, no murmur, positive posterior tibial pulses bilaterally, and cap refill < 2 seconds. Lungs: Respirations even, regular, and unlabored on room air. Lungs CTA bilaterally, no rhonchi, no rales, no wheezing, and no accessory muscle usage. Abdominal: soft, nontender to palpation, no guarding, no appreciable organomegaly Ext: ROM intact. No gross muscle atrophy, no edema, no contractures Neuro: Speech clear, face symmetrical and CN II-XII grossly intact with no noted focal neuro deficits Psych: Alert and oriented to person, place, time, and situation. Appropriate and pleasant affect. Assessment and Plan of Care: Hypertensive urgency Abnormal EKG, unchanged from previous -Hypertensive urgency is believed to have resulted from multi-factorial secondary to rebound hypertension from stopping taking previously prescribed antihypertensive medications accompanied by methamphetamine use/abuse and withdrawal. -Continue lisinopril/hydrochlorothiazide 20/25 mg daily and carvedilol 6.25 mg twice daily. -EKG was completed showing normal sinus rhythm at 69 bpm with T-wave inversion and ST depression in inferior leads 2, 3, and aVF as well as lateral lead V6. (Upon review of previous EKGs this is a previous known finding and unchanged when compared to EKG completed on 05/31/22). -Troponin was 0.032. -Cardiology evaluated clearing patient from cardiac perspective for outpatient follow-up in their office in 2 weeks. -Patient to remain on telemetry monitoring. -Echocardiogram shows severely increased left ventricular wall thickness, but recovery of left ventricular ejection fraction of 55-60%, no wall motion abnormalities Covid 19 infection -Patient remains asymptomatic -Provide patient with symptomatic care as needed. Nicotine dependence -Continue nicotine patch 21 mg daily, recommend smoking cessation. Polysubstance abuse with methamphetamines and marijuana Transaminitis, likely secondary to long-standing history of alcohol and polysubstance abuse. -Recommend cessation of use Depression and anxiety Auditory hallucinations Suicidal ideations -Suicide precautions in place -Psychiatry following -Elopement precautions in place -Order placed for sitter to remain at bedside continuously. Data reviewed: -Vital signs reviewed. Blood pressure 135/78, heart rate 77, respiratory rate 20, temp 98.6F, and a CO2 of 93% on room air. -Labs completed and reviewed. CBC and BMP were unremarkable. Liver enzymes remained elevated but stable with AST of 96 and ALT of 164. CODE STATUS: Full code DVT prophylaxis: Lovenox Anticipated discharge date: Patient will be eligible for discharge to inpatient mental health unit on 11/15/23, 10 days status post positive Covid testing Anticipated discharge place: Inpatient psychiatric unit Patient was seen independently by Nurse Pracitioner. This document was prepared using [employer] dictation software. Please allow for errors in men's and boys' clothing salesperson, while rare they do occur. Objective - Vital Signs Vital signs: Vital Signs Temp 98.6 F 11/14/23 07:30 Pulse 77 11/14/23 07:30 Resp 20 11/14/23 07:30 BP 135/78 11/14/23 07:30 Pulse Ox 93 L 11/14/23 07:30 FiO2 Intake & Output 11/13/23 11/14/23 11/14/23 18:59 06:59 18:59 Output Total 3 Balance -3 Weight 83.915 kg Output: Urine 3 Other: Voiding Method Toilet Toilet # Voids 2 - Labs CBC & Chem 7: 11/14/23 05:43 11/14/23 05:43
[2023-11-14] MEDS: SERTRALINE 100 MG TAB PO SCH (19:53)
[2023-11-14] MEDS: QUEtiapine 100 MG TAB PO SCH (22:05)
[2023-11-15 07:17] VITALS: BP 156/99; PULSE 69; RESP 18; TEMP 98.5
[2023-11-15] MEDS: LISINOPRIL-HCTZ 20-25 MG 1 EACH TAB PO SCH (08:38)
[2023-11-15] MEDS: carvediloL 6.25 MG TAB PO SCH (08:38)
[2023-11-15] MEDS: NICOTINE 21MG/24HR PATCH TRANSDERM SCH (08:38)
[2023-11-15] MEDS: ENOXAPARIN 40 MG/0.4 ML SYRINGE SQ SCH (08:38)
--- NOTE | 2023-11-15 11:31 | P.DS ---
Providers Date of admission: 11/05/23 14:41 Expected date of discharge: 11/15/23 Attending physician: Stephanie Rausch DO Consults: 11/05/23 14:41 Consult Physician Urgent Consulting Provider: James Myers Consult Reason/Comments: Depression, suicidal ideations Do you want consulting provider notified?: Yes Primary care physician: Stated None Hospital Course: Discharge Diagnosis: Hypertensive urgency,Continue lisinopril/hydrochlorothiazide 20/25 mg daily and carvedilol 6.25 mg twice daily. Abnormal EKG, unchanged from previous Covid 19 infection. Patient remains asymptomatic and is day 10 from diagnosis. Nicotine dependence. Continue nicotine patch 21 mg daily, recommend smoking cessation. Polysubstance abuse with methamphetamines and marijuana. Recommend cessation of use Transaminitis, likely secondary to long-standing history of alcohol and polysubstance abuse. Recommend cessation of use Depression and anxiety Auditory hallucinations Suicidal ideations. Pt medically cleared for discharge to psych Hospital Course: Patient is a very pleasant 38-year-old male with a past medical history of hypertension ADHD, anxiety, depression, nicotine dependence, migraines, and polysubstance abuse with marijuana and methamphetamines. He presented to the emergency department on 11/05/23 with reports of hearing voices, depression, and having suicidal ideations. He underwent full evaluation in the emergency department. Upon arrival patient was found to have hypertensive urgency with blood pressure 222/135 and heart rate of 104. Patient does have history of methamphetamine abuse but states he has not used in a while. Patient was previously on amlodipine and lisinopril/hydrochlorothiazide for management of his blood pressure but states he stopped taking this medication a while ago because he ran out. Labs were completed and reviewed. CBC unremarkable. BMP revealing mild hypocarbia with bicarb of 21 and mild prerenal azotemia with BUN of 21 otherwise normal findings. Liver profile showing elevated AST of 98 and alkaline phosphatase of 126. Urine drug screen was negative. Coag PCR was positive. Patient petitioned in the emergency department and was initially supposed to be admitted to inpatient psychiatric unit, however secondary to patient having positive Covid test patient to be admitted under our services for medical management as psychiatric unit cannot accept patient until 10 days status post his positive Covid test. Patient is medicallyy clear for discharge to inpatient mental health unit. Physical exam: Vital signs reviewed and stable. General: Nontoxic, no distress and appears stated age. Derm: Skin warm and dry, normal coloration for ethnicity. Head: Atraumatic, normocephalic and symmetric. Eyes: EOMs intact, no lid lag, and anicteric sclera Mouth: no lip lesions, mucus membranes moist Cardiovascular: regular rate and rhythm with normal S1S2, no murmur, positive posterior tibial pulses bilaterally, and cap refill < 2 seconds. Lungs: Respirations even, regular, and unlabored on room air. Lungs CTA bilaterally, no rhonchi, no rales, no wheezing, and no accessory muscle usage. Abdominal: soft, nontender to palpation, no guarding, no appreciable organomegaly Ext: ROM intact. No gross muscle atrophy, no edema, no contractures Neuro: Speech clear, face symmetrical and CN II-XII grossly intact with no noted focal neuro deficits Psych: Alert and oriented to person, place, time, and situation. Appropriate and pleasant affect. A total of 33 minutes of time were spent preparing this complex discharge summary. Pt was discharged on 11/15/23 at 9:52 AM Patient was seen independently by Nurse Practitioner. This document was prepared using [employer] dictation software. Please allow for errors in eclectic doctor while rare they do occur. Patient Condition at Discharge: Stable Plan - Discharge Summary Discharge Rx Participant: Yes New Discharge Prescriptions: New carvediloL [Coreg] 6.25 mg PO BID-W/MEALS tab Nicotine 21Mg/24Hr Patch [Habitrol] 1 patch TRANSDERM DAILY patch Acetaminophen Tab [Tylenol] 650 mg PO Q6HR PRN tab PRN Reason: Mild Pain (Scale 1 To 3) QUEtiapine [SEROquel] 100 mg PO HS 30 Days #30 tablet Sertraline [Zoloft] 100 mg PO HS 30 Days #30 tab Lisinopril-Hctz 20-25 mg [Zestoretic 20-25] 1 each PO DAILY tab carvediloL [Coreg] 6.25 mg PO BID 30 Days #60 tablet rOPINIRole HCL [Requip] 0.5 mg PO HS 30 Days #60 tablet Lisinopril-Hctz 20-25 mg [Zestoretic 20-25] 1 tab PO DAILY 30 Days #30 tab Discharge Medication List Acetaminophen Tab [Tylenol] 650 mg PO Q6HR PRN tab 11/15/23 [Rx] Lisinopril-Hctz 20-25 mg [Zestoretic 20-25] 1 each PO DAILY tab 11/15/23 [Rx] Lisinopril-Hctz 20-25 mg [Zestoretic 20-25] 1 tab PO DAILY 30 Days #30 tab 11/15/23 [Rx] Nicotine 21Mg/24Hr Patch [Habitrol] 1 patch TRANSDERM DAILY patch 11/15/23 [Rx] QUEtiapine [SEROquel] 100 mg PO HS 30 Days #30 tablet 11/15/23 [Rx] Sertraline [Zoloft] 100 mg PO HS 30 Days #30 tab 11/15/23 [Rx] carvediloL [Coreg] 6.25 mg PO BID 30 Days #60 tablet 11/15/23 [Rx] carvediloL [Coreg] 6.25 mg PO BID-W/MEALS tab 11/15/23 [Rx] rOPINIRole HCL [Requip] 0.5 mg PO HS 30 Days #60 tablet 11/15/23 [Rx] Follow up Appointment(s)/Referral(s): Miguel Ángel Layne MD [STAFF PHYSICIAN] - 4 Weeks Patient Instructions/Handouts: Medical Clearance for Psychiatric Care (GEN) Discharge/Stand Alone Forms: AA Meetings [place], [facility], [facility], Outpatient Counseling, Inp Substance Abuse Facilities, Area PCPs Discharge Disposition: TRANSFER TO PSYCH HOSP/UNIT
--- NOTE | 2023-11-15 13:00 | P.PN ---
Progress Note - Text Progress Note Date: 11/15/23 Patient Name: Luis Crowell Date of : 87 Patient Status: Inpatient Attending Provider: Stephanie Rausch Date: 11/15/23 The patient was seen chart was reviewed and case discussed with the nursing staff The patient was previously seen by Dr. Dominguez on 11/08/23 on the medical floor Patient was considered to be a possible candidate for psychiatric hospitalization and was admitted to the medical floor due to his code positive status Please refer to Dr. Mathews note for further details Patient carries a diagnoses of schizoaffective disorder Methamphetamine use disorder Opiate use disorder Cannabis use disorder Nicotine dependency When seen today patient reports that he is feeling better He states that he is not having any symptoms of akathisia He reports that they're acute 0.5 mg at nighttime has been helpful He says that his last methamphetamine use was about a month ago He also admits that he has been drinking on a regular basis and had few drinks before he came to the hospital He admits that he plans to stop his drug use and get into her upper follow-up treatments He also reports that the hopi 100 mg at bedtime as also been helpful He denies any suicidal or homicidal and overall feels positive He feels that he could go home and continue further treatment as an outpatient He denies any intention of harming himself or others MENTAL STATUS EXAM: General Appearance: Patient appears to be short in stature, unshaven, stated age is alert, directable, and attempts to cooperate. Patient's hygiene appears to be fair as an hospital gown Behavior: Patient is sitting on his bed, without any acute distress fair eye contact. Laundry movements noted Speech: Patient's speech is fluent. [place], soft tone, Mood/Affect: Patient reports his mood is fine. affect is congruent and constricted, Suicidality/Homicidality: Denies to suicidal thoughts, no intent or plan, denies any homicidal ideations. Perceptions: Denies he is hearing voices, denies any visual hallucinations Though content/process: Patient is logical, Goal oriented logical Memory and concentration: Alert and oriented 3, fair attention span. Judgment and insight: Fair and fair IMPRESSIONS: Schizoaffective disorder Methamphetamine use disorder in early remission Opioid Use Disorder, in remission cannabis use disorder Nicotine dependence Plan: The patient had been complaining of having akathisia-like symptoms which may be related to his concomitant use of methamphetamine with its dopaminergic effect and causing involuntary movement disorders This appears to have resolved at this time and patient is highly recommended to continue with his substance use program and treatment and to avoid any street drugs including cannabis Patient at this time appears to be stable for further treatment could be continued as outpatient Would recommend continuation of cervical 100 mg at bedtime and requip 0.5 mg at bedtime as suggested and prescribed Thank you very much for your kind referral please contact me for any further questions Bunny Coronel M.D.
== END 2023-11-15 13:00 | disposition home or self-care (01) | DRG 137 ==
LOC: EC 00:46 → 4SSUR 14:41
PROVIDERS: ADMIT Internal Medicine; ATTEND Internal Medicine
DX: U07.1 COVID-19 (principal); R45.851 Suicidal ideations; I42.8 Other cardiomyopathies; F25.9 Schizoaffective disorder, unspecified; G25.71 Drug induced akathisia; F15.11 Other stimulant abuse, in remission; I10 Essential (primary) hypertension; F11.11 Opioid abuse, in remission; T43.651A Poisoning by methamphetamines accidental (unintentional), initial encounter; F31.9 Bipolar disorder, unspecified; I16.0 Hypertensive urgency; T46.5X6A Underdosing of other antihypertensive drugs, initial encounter; F90.9 Attention-deficit hyperactivity disorder, unspecified type; F41.9 Anxiety disorder, unspecified; F17.210 Nicotine dependence, cigarettes, uncomplicated; R79.89 Other specified abnormal findings of blood chemistry; R94.31 Abnormal electrocardiogram [ECG] [EKG]; R74.01 Elevation of levels of liver transaminase levels; Z91.148 Patient's other noncompliance with medication regimen for other reason; Z91.51 Personal history of suicidal behavior; Z81.8 Family history of other mental and behavioral disorders; Z63.79 Other stressful life events affecting family and household; Z86.14 Personal history of Methicillin resistant Staphylococcus aureus infection
CPT/HCPCS: 36415; 80048; 80053; 80306; 82075; 83735; 84484; 85025; 85027; 87635; 93005; 93306; 96374; 96375; 99285

== ENCOUNTER 2023-12-18 22:06 | Emergency (ER) | payer OTHER ==
--- NOTE | 2023-12-18 22:30 | ED ---
General Adult HPI - General Source: patient Mode of arrival: ambulatory <Venessa Cervantes - Last Filed: 12/18/23 22:28> - General Source: patient, RN notes reviewed Mode of arrival: ambulatory <Arnaud Madera - Last Filed: 12/18/23 23:35> <Kandis Groves Julian - Last Filed: 12/19/23 12:50> - General Stated complaint: Mental health Time Seen by Provider: 12/18/23 22:28 - History of Present Illness Initial comments: 8-year-old male presenting with alcohol intoxication. When asked if he is suicidal the patient says "I guess". (Venessa Cervantes) This is a pleasant 38-year-old male who presents to the emergency department stating that he has "fucked up."Patient states his mother was concerned about him. Patient denying any suicidal ideation or homicidal ideation. Patient states he normally does not drink alcohol on a daily basis. Admits to 4 beers tonight. Patient also took a 2 mg alprazolam tablet. He also states he took something for depression, restless legs, and "something else."Patient does have an abrasion to the volar aspect of his left wrist, he states he does not know how he got the abrasion. Patient states he got a ride here from [place]. Denies any chest pain or shortness of breath. No current nausea. Denies any current vision disturbance. No abdominal pain. No fever or chills. (Arnaud Madera) - Related Data Previous Rx's Medication Instructions Recorded Acetaminophen Tab [Tylenol] 650 mg PO Q6HR PRN tab 11/15/23 Lisinopril-Hctz 20-25 mg 1 tab PO DAILY 30 Days #30 tab 11/15/23 [Zestoretic 20-25] Nicotine 21Mg/24Hr Patch [Habitrol] 1 patch TRANSDERM DAILY patch 11/15/23 QUEtiapine [SEROquel] 100 mg PO HS 30 Days #30 tablet 11/15/23 Sertraline [Zoloft] 100 mg PO HS 30 Days #30 tab 11/15/23 carvediloL [Coreg] 6.25 mg PO BID 30 Days #60 tablet 11/15/23 rOPINIRole HCL [Requip] 0.5 mg PO HS 30 Days #60 tablet 11/15/23 Allergies Allergy/AdvReac Type Severity Reaction Status Date / Time No Known Allergies Allergy Verified 12/18/23 23:08 Review of Systems ROS Other: All systems not noted in ROS Statement are negative. <CervantesBlairjamar - Last Filed: 12/18/23 22:28> ROS Other: All systems not noted in ROS Statement are negative. <Arnaud Madera - Last Filed: 12/18/23 23:35> ROS Other: All systems not noted in ROS Statement are negative. <Kandis Groves - Last Filed: 12/19/23 12:50> ROS Statement: Those systems with pertinent positive or pertinent negative responses have been documented in the HPI. Past Medical History Past Medical History: Hypertension Additional Past Medical History / Comment(s): Migraines, L lower extremity cellulitis/sepsis, pilonidal cysts/abscesses. History of Any Multi-Drug Resistant Organisms: MRSA Date of last positivie culture/infection: 07/26/21 MDRO Source:: Right Testicle Past Surgical History: Cholecystectomy, Orthopedic Surgery Additional Past Surgical History / Comment(s): I&D testicle, R tib/fib fracture repair with hardware. Past Anesthesia/Blood Transfusion Reactions: No Reported Reaction Past Psychological History: ADD/ADHD, Anxiety, Depression Smoking Status: Current every day smoker Past Alcohol Use History: Rare Past Drug Use History: Marijuana, Methamphetamine - Past Family History Mother Family Medical History: Cancer Additional Family Medical History / Comment(s): cervical cancer Father Family Medical History: Cancer Additional Family Medical History / Comment(s): Father in 1997 from lung and liver cancer <Venessa Cervantes - Last Filed: 12/18/23 22:28> General Exam <Venessa Cervantes - Last Filed: 12/18/23 22:28> General appearance: alert, appears intoxicated Head exam: Present: atraumatic, normocephalic, normal inspection Eye exam: Present: normal appearance, PERRL, EOMI. Absent: scleral icterus, conjunctival injection, periorbital swelling ENT exam: Present: normal exam, normal oropharynx, mucous membranes moist, normal external ear exam Neck exam: Present: normal inspection, full ROM. Absent: tenderness, meningism us, lymphadenopathy Respiratory exam: Present: normal lung sounds bilaterally. Absent: respiratory distress, wheezes, rales, rhonchi, stridor, chest wall tenderness, accessory muscle use, decreased breath sounds, prolonged expiratory Cardiovascular Exam: Present: regular rate, normal rhythm, normal heart sounds. Absent: systolic murmur, diastolic murmur, rubs, gallop, clicks GI/Abdominal exam: Present: soft, normal bowel sounds. Absent: distended, tenderness, guarding, rebound, rigid Extremities exam: Present: full ROM, normal capillary refill. Absent: normal inspection (Superficial abrasion noted to the left volar forearm. No evidence of infectious process. Neurovascular status intact), tenderness, pedal edema, joint swelling, calf tenderness Back exam: Present: normal inspection Neurological exam: Present: alert, oriented X3, CN II-XII intact Expanded Patient oriented to: Present: person, place, time Cranial nerves: EOM's Intact: Normal, Gag Reflex: Normal, Tongue Deviation: Normal, Nystagmus: Normal, Facial Sensation: Normal, Facial Palsy with Forehead Movement: Normal, Facial Palsy without Forehead Movement: Normal Cerebellar function: Finger to Nose: Normal Upper motor neuron: Pronator Drift: Normal Eye Response: (4) open spontaneously Motor Response: (6) obeys commands Verbal Response: (5) oriented Psychiatric exam: Present: normal affect, normal mood Skin exam: Present: warm, dry, intact, normal color. Absent: rash <Arnaud Madera - Last Filed: 12/18/23 23:35> - General Exam Comments Initial Comments: Visual Physical Exam Vital signs reviewed General:. intoxicated, no acute distress. Head: Normocephalic, atraumatic Eyes: PERRLA, EOMI ENT: Airway patent Chest: Nonlabored breathing Skin: No visual rash, normal skin tone Neuro: Alert, currently intoxicated Musculoskeletal: No gross abnormalities (Venessa Cervantes) Patient noted to be hypertensive. Also bradycardic. Does not appear to be ill or toxic. Cranial nerves II through XII grossly intact. Patient alert and oriented x 3. Appears to be intoxicated. (Arnaud Madera) Course Vital Signs 12/18/23 12/19/23 22:28 00:04 Temperature 97.5 F L Pulse Rate 57 L 69 Respiratory 20 16 Rate Blood Pressure 182/119 164/89 O2 Sat by Pulse 97 95 Oximetry Medical Decision Making <Venessa Cervantes - Last Filed: 12/18/23 22:28> - Lab Data Result diagrams: 12/18/23 23:05 <Arnaud Madera - Last Filed: 12/18/23 23:35> - Lab Data Result diagrams: 12/18/23 23:05 12/18/23 23:05 <Kandis Groves - Last Filed: 12/19/23 12:50> - Medical Decision Making I Performed the quick note portion of this visit electronically signed Venessa Cervantes PA-C (Venessa Cervantes) Was pt. sent in by a medical professional or institution? @ -No Did you speak to anyone other than the patient for history? @ -[EMS, parent, family, police, friend?] Did you review nursing and triage notes? @ -Agree Were old charts reviewed? @ -[outside hosp., previous admissions, EMS record, old EKG, old radiological studies, urgent care reports/EKGs, group home records?] Differential Diagnosis? @ -[chest pain, altered mental status abdominal pain women, abdominal pain men, vaginal bleeding, weakness, fever, dyspnea, syncope, headache, dizziness, GI bleed, back pain, seizure] EKG interpreted by me (3pts min.)? @ -[none] X-rays interpreted by me (1pt min.)? @ -[none] CT interpreted by me (1pt min.)? @ -[none] U/S interpreted by me (1pt. min.)? @ -[none] What testing was considered but not performed? (CT, X-rays, U/S, labs)? Why? @ [CT, X-rays, U/S, labs? Why?] What meds were considered but not given? Why? @ -[none] Did you discuss the management of the patient with other professionals? @ -[professionals i.e. Dr, PA, REGIONAL BUSINESS DEVELOPMENT MANAGER, Lab, RT, Psych Nurse, Press Clipper, Engineering Faculty, Teacher, Reproduction Artist, child welfare caseworker? Give summary] Did you reconcile home meds? @ -[none] Was smoking cessation discussed for >3mins.? @ -[none] Was critical care preformed (if so, how long)? @ -[none] Were there social determinants of health that impacted care today? How? (Homelessness, low income, unemployed, alcoholism, drug addiction, transporta tion, low edu. Level, literacy, decrease access to med. care, fdc, rehab)? @ -Depression, alcohol abuse, polysubstance abuse concerns Was there de-escalation of care discussed even if they declined? (Discuss DNR or withdrawal of care, Hospice)? @ -[Discuss DNR or withdrawal of care, Hospice?] What co-morbidities impacted this encounter? (DM, HTN, Smoking, COPD, CAD, Cancer, CVA, Hep., AIDS, mental health diagnosis, sleep apnea, morbid obesity)? @ -Depression, alcohol use, polysubstance use Was patient admitted / discharged? @ -[hospital course] Undiagnosed new problem with uncertain prognosis? @ -[none] Drug Therapy requiring intensive monitoring for toxicity (Heparin, Nitro, Insulin, Cardizem)? @ -[none] Were any procedures done? @ -[none] Diagnosis/symptom? @ -[default] Acute, or Chronic, or Acute on Chronic? @ -Acute Uncomplicated (without systemic symptoms) or Complicated (systemic symptoms)? @ -[default] Side effects of treatment? @ -[none] Exacerbation, Progression, or Severe Exacerbation] @ -[no] Poses a threat to life or bodily function? @ -[no] The case was discussed in detail with ED attending physician. Presentation, findings, treatment plan discussed in detail. Dr. Lyles Patient will be endorsed to the ED attending physician, Dr. Lyles upon my l eaving for further evaluation, treatment, and disposition, case discussed in detail (Arnaud Madera) - Lab Data Lab Results 12/18/23 12/18/23 12/18/23 Range/Units 23:05 23:05 23:06 WBC 8.1 (3.8-10.6) k/uL RBC 5.17 (4.30-5.90) m/uL Hgb 16.8 (13.0-17.5) gm/dL Hct 48.0 (39.0-53.0) % MCV 92.8 (80.0-100.0) fL MCH 32.4 (25.0-35.0) pg MCHC 35.0 (31.0-37.0) g/dL RDW 13.4 (11.5-15.5) % Plt Count 198 (150-450) k/uL MPV 7.9 Neutrophils % 62 % Lymphocytes % 26 % Monocytes % 6 % Eosinophils % 4 % Basophils % 0 % Neutrophils # 5.0 (1.3-7.7) k/uL Lymphocytes # 2.1 (1.0-4.8) k/uL Monocytes # 0.5 (0-1.0) k/uL Eosinophils # 0.3 (0-0.7) k/uL Basophils # 0.0 (0-0.2) k/uL Sodium 138 (137-145) mmol/L Potassium 4.1 (3.5-5.1) mmol/L Chloride 106 (98-107) mmol/L Carbon Dioxide 23 (22-30) mmol/L Anion Gap 9 mmol/L BUN 17 (9-20) mg/dL Creatinine 1.00 (0.66-1.25) mg/dL Est GFR (CKD-EPI)AfAm >90 (>60 ml/min/1.73 sqM) Est GFR (CKD-EPI)NonAf >90 (>60 ml/min/1.73 sqM) Glucose 96 (74-99) mg/dL Calcium 8.7 (8.4-10.2) mg/dL Total Bilirubin 0.6 (0.2-1.3) mg/dL AST 103 H (17-59) U/L ALT 159 H (4-49) U/L Alkaline Phosphatase 91 (38-126) U/L Total Protein 7.7 (6.3-8.2) g/dL Albumin 4.3 (3.5-5.0) g/dL Salicylates <1.0 mg/dL Urine Opiates Screen Not Detected (NotDetected) Ur Oxycodone Screen Not Detected (NotDetected) Urine Methadone Screen Not Detected (NotDetected) Acetaminophen <10.0 ug/mL Ur Barbiturates Screen Not Detected (NotDetected) U Tricyclic Antidepress Not Detected (NotDetected) Ur Phencyclidine Scrn Not Detected (NotDetected) Ur Amphetamines Screen Not Detected (NotDetected) U Methamphetamines Scrn Not Detected (NotDetected) U Benzodiazepines Scrn Detected H (NotDetected) Urine Cocaine Screen Not Detected (NotDetected) U Marijuana (THC) Screen Not Detected (NotDetected) Serum Alcohol 138 mg/dL Disposition <Venessa Cervantes - Last Filed: 12/18/23 22:28> <Arnaud Madera - Last Filed: 12/18/23 23:35> Is patient prescribed a controlled substance at d/c from ED?: No Time of Disposition: 12:50 <Kandis Groves - Last Filed: 12/19/23 12:50> Clinical Impression: Alcohol abuse, Depression Disposition: HOME SELF-CARE Condition: Stable Instructions (If sedation given, give patient instructions): Abuse of Alcohol (ED) Referrals: None,Stated [Primary Care Provider] - 1-2 days
[2023-12-18 22:51] VITALS: TEMP 97.5
[2023-12-18] MEDS: SODIUM CHLORIDE 0.9% 1,000 ML IV ONE (23:08)
[2023-12-18] MEDS: ONDANSETRON 4 MG/2 ML VIAL IVP STA (23:09)
[2023-12-18] MEDS: cloNIDine HCL 0.1 MG TAB PO STA (23:09)
[2023-12-18 23:17] LABS: Basophils % (A) 0 %; Eosinophils # (A) 0.3 k/uL (0-0.7); Eosinophils % (A) 4 %; HGB 16.8 gm/dL (13.0-17.5); Lymphocytes # (A) 2.1 k/uL (1.0-4.8); Lymphocytes % (A) 26 %; MCH 32.4 pg (25.0-35.0); MCV 92.8 fL (80.0-100.0); Mean Platelet Volume 7.9; Monocytes # (A) 0.5 k/uL (0-1.0); Monocytes % (A) 6 %; Neutrophils % (A) 62 %; Platelet Count 198 k/uL (150-450); RBC 5.17 m/uL (4.30-5.90); RDW 13.4 % (11.5-15.5); WBC 8.1 k/uL (3.8-10.6)
[2023-12-18 23:37] LABS: ALT 159 U/L (4-49); AST 103 U/L (17-59); Acetaminophen <10.0 ug/mL; African American GFR (CKD) >90 (>60 ml/min/1.73 sqM); Albumin 4.3 g/dL (3.5-5.0); Alkaline Phosphatase 91 U/L (38-126); Anion Gap 9 mmol/L; Blood Urea Nitrogen 17 mg/dL (9-20); Calcium 8.7 mg/dL (8.4-10.2); Carbon Dioxide 23 mmol/L (22-30); Chloride 106 mmol/L (98-107); Glucose 96 mg/dL (74-99); Non-African American GFR(CKD) >90 (>60 ml/min/1.73 sqM); Potassium 4.1 mmol/L (3.5-5.1); Salicylate <1.0 mg/dL; Sodium 138 mmol/L (137-145); Total Bilirubin 0.6 mg/dL (0.2-1.3); Total Protein 7.7 g/dL (6.3-8.2)
[2023-12-18] MEDS: THIAMINE 100 MG/ML 2 ML VIAL IVP STA (23:37)
[2023-12-18 23:42] LABS: Alcohol 138 mg/dL
--- NOTE | 2023-12-18 23:49 | CT ---
EXAMINATION TYPE: CT brain wo con DATE OF EXAM: 12/18/2023 COMPARISON: CT brain June 26, 2023 HISTORY: Pt presents with PD for intoxication, and suicidal ideations, pt is covered in vomit, gait u nsteady, speech is slurred. PT states he just feels off. Altered mental status. CT DLP: 1153.5 mGycm. Automated Exposure Control for Dose Reduction was Utilized. TECHNIQUE: CT scan of the head is performed without contrast. FINDINGS: There is no acute intracranial hemorrhage, mass effect, or midline shift identified. The ventricles and sulci are stable and within normal limits in size. Polo-white matter differentiation is maintained. The globes are intact and the visualized sinuses are clear. Prominent soft tissue dens ity consistent with cerumen in the bilateral external auditory canals is redemonstrated. IMPRESSION: No acute intracranial hemorrhage or midline shift is seen.
[2023-12-19 00:11] VITALS: BP 164/89; PULSE 69; RESP 16
[2023-12-19 01:13] LABS: Amphetamine Screen,Urine Not Detected (NotDetected); Benzodiazepines Screen,Urine Detected (NotDetected); Cocaine Screen,Urine Not Detected (NotDetected); Opiate Screen,Urine Not Detected (NotDetected); Phencyclidine Screen,Urine Not Detected (NotDetected); Urn Cannabinoid Scrn Not Detected (NotDetected)
[2023-12-19 01:14] LABS: Barbiturate Screen,Urine Not Detected (NotDetected); Methadone Screen, Urine Not Detected (NotDetected); Oxycodone Screen, Urine Not Detected (NotDetected); Tricyclic Antidepressant,Urine Not Detected (NotDetected)
== END 2023-12-19 13:10 | disposition home or self-care (01) ==
LOC: EC 22:06
DX: F10.129 Alcohol abuse with intoxication, unspecified (principal); F32.A Depression, unspecified; I10 Essential (primary) hypertension; F12.90 Cannabis use, unspecified, uncomplicated; F17.200 Nicotine dependence, unspecified, uncomplicated; Z90.49 Acquired absence of other specified parts of digestive tract; Y90.6 Blood alcohol level of 120-199 mg/100 ml
CPT/HCPCS: 99285 ×2; 96374 ×2; 96375 ×2; 96361 ×2; 82075; 36415; 80053; 85025; 80306; 80143; 80179; 70450; G0480; J3411; J2405; 80320

== ENCOUNTER 2024-02-21 17:38 | Emergency (ER) | payer OTHER ==
[2024-02-21 18:08] VITALS: TEMP 97.8
[2024-02-21] MEDS: KETOROLAC 15 MG/ML 1 ML VIAL IVP STA (18:50)
[2024-02-21] MEDS: cloNIDine HCL 0.1 MG TAB PO STA (18:51)
[2024-02-21 18:54] LABS: Basophils % (A) 0 %; Eosinophils # (A) 0.2 k/uL (0-0.7); Eosinophils % (A) 3 %; HCT 47.2 % (39.0-53.0); HGB 15.8 gm/dL (13.0-17.5); Lymphocytes # (A) 1.3 k/uL (1.0-4.8); Lymphocytes % (A) 14 %; MCH 32.2 pg (25.0-35.0); MCHC 33.4 g/dL (31.0-37.0); MCV 96.5 fL (80.0-100.0); Mean Platelet Volume 8.2; Monocytes # (A) 0.6 k/uL (0-1.0); Monocytes % (A) 6 %; Neutrophils % (A) 75 %; Platelet Count 237 k/uL (150-450); RBC 4.89 m/uL (4.30-5.90); RDW 13.9 % (11.5-15.5); WBC 9.3 k/uL (3.8-10.6)
--- NOTE | 2024-02-21 18:57 | XR ---
EXAMINATION: XR chest 2V: 02/21/2024 6:23 PM CLINICAL INDICATION: Chest Pain TECHNIQUE: Departmental protocol COMPARISON: 05/31/2022 FINDINGS: The lungs are clear. The pleural spaces are negative. The cardiac silhouette is not enlarged. The skeletal structures and soft tissues are negative for acute findings. IMPRESSION: No acute radiographic process.
--- NOTE | 2024-02-21 19:00 | ED ---
Chest Pain HPI - General Chief Complaint: Chest Pain Stated Complaint: Chest pain Time Seen by Provider: 02/21/24 18:00 Source: patient, RN notes reviewed, old records reviewed Mode of arrival: ambulatory Limitations: no limitations - History of Present Illness Initial Comments: 38-year-old male presents with complaints of chest pain sharp in nature left of sternum increased with movement. He states he does a lot of lifting. He was seen at [facility] recently for the same. He states is about 6/10 in severity. No cough fevers chills sweats nausea vomiting no overt radiation. He is a smoker. He does state he was on a monitor when he was a baby. He does state he had a history of a stroke. MD Complaint: chest pain - Related Data Previous Rx's Medication Instructions Recorded Acetaminophen Tab [Tylenol] 650 mg PO Q6HR PRN tab 11/15/23 Lisinopril-Hctz 20-25 mg 1 tab PO DAILY 30 Days #30 tab 11/15/23 [Zestoretic 20-25] Nicotine 21Mg/24Hr Patch [Habitrol] 1 patch TRANSDERM DAILY patch 11/15/23 QUEtiapine [SEROquel] 100 mg PO HS 30 Days #30 tablet 11/15/23 Sertraline [Zoloft] 100 mg PO HS 30 Days #30 tab 11/15/23 carvediloL [Coreg] 6.25 mg PO BID 30 Days #60 tablet 11/15/23 rOPINIRole HCL [Requip] 0.5 mg PO HS 30 Days #60 tablet 11/15/23 Allergies Allergy/AdvReac Type Severity Reaction Status Date / Time No Known Allergies Allergy Verified 02/21/24 17:41 Review of Systems ROS Statement: Those systems with pertinent positive or pertinent negative responses have been documented in the HPI. ROS Other: All systems not noted in ROS Statement are negative. Past Medical History Past Medical History: Hypertension Additional Past Medical History / Comment(s): Migraines, L lower extremity cellulitis/sepsis, pilonidal cysts/abscesses. History of Any Multi-Drug Resistant Organisms: MRSA Date of last positivie culture/infection: 07/26/21 MDRO Source:: Right Testicle Past Surgical History: Cholecystectomy, Orthopedic Surgery Additional Past Surgical History / Comment(s): I&D testicle, R tib/fib fracture repair with hardware. Past Anesthesia/Blood Transfusion Reactions: No Reported Reaction Past Psychological History: ADD/ADHD, Anxiety, Depression Smoking Status: Current every day smoker Past Alcohol Use History: Rare Past Drug Use History: Marijuana, Methamphetamine - Past Family History Mother Family Medical History: Cancer Additional Family Medical History / Comment(s): cervical cancer Father Family Medical History: Cancer Additional Family Medical History / Comment(s): Father in 1997 from lung and liver cancer General Exam - General Exam Comments Initial Comments: Is a well-developed well-nourished awake alert oriented x 4 male Limitations: no limitations General appearance: alert, in no apparent distress Head exam: Present: atraumatic, normocephalic, normal inspection Eye exam: Present: normal appearance, PERRL, EOMI. Absent: scleral icterus, conjunctival injection, periorbital swelling ENT exam: Present: normal exam, mucous membranes moist Neck exam: Present: normal inspection, full ROM, other (No stridor JVD or bruits ). Absent: tenderness, meningismus, lymphadenopathy Respiratory exam: Present: normal lung sounds bilaterally, chest wall tenderness (Reproducible tenderness palpation of left costosternal margin no step-off or crepitation). Absent: respiratory distress, wheezes, rales, rhonchi, stridor Cardiovascular Exam: Present: regular rate, normal rhythm, normal heart sounds. Absent: systolic murmur, diastolic murmur, rubs, gallop, clicks GI/Abdominal exam: Present: soft, normal bowel sounds. Absent: distended, tenderness, guarding, rebound, rigid Extremities exam: Present: normal inspection, full ROM, normal capillary refill. Absent: tenderness, pedal edema, joint swelling, calf tenderness Back exam: Present: normal inspection Neurological exam: Present: alert, oriented X3, CN II-XII intact Psychiatric exam: Present: normal affect, normal mood Skin exam: Present: warm, dry, intact, normal color. Absent: rash Course Vital Signs 02/21/24 02/21/24 02/21/24 17:39 18:00 19:55 Temperature 97.8 F Pulse Rate 85 78 77 Respiratory 20 17 18 Rate Blood Pressure 229/118 203/150 197/120 O2 Sat by Pulse 100 95 97 Oximetry - Reevaluation(s) Reevaluation #1: 02/21/24 20:49 Evaluation findings the patient has improved pain scale of 0 however his blood pressure still remains high he was supposed be on blood pressure medication but could not afford them. He was given IV fluids as he clinically appeared dehydrated he did get Catapres p.o. Chest Pain MDM - [facility] The patient did choose to leave AGAINST MEDICAL ADVICE as he did improve. His mother is coming to pick him up. He does not want to stay any longer he does demonstrate decision-making capacity. Was pt. sent in by a medical professional or institution (DAMARI Newsome, WATERMELON HARVESTING SUPERVISOR, urgent care, hospital, or prison...) When possible be specific @ -No Did you speak to anyone other than the patient for history (EMS, parent, family, police, friend...)? What history was obtained from this source @ -No Did you review nursing and triage notes (agree or disagree)? Why? @ -I reviewed and agree with nursing and triage notes Were old charts reviewed (outside hosp., previous admission, EMS record, old EKG, old radiological studies, urgent care reports/EKG's, prison records)? Report findings @ -Old charts were reviewed Differential Diagnosis (chest pain, altered mental status, abdominal pain women, abdominal pain men, vaginal bleeding, weakness, fever, dyspnea, syncope, headache, dizziness, GI bleed, back pain, seizure, CVA, palpatations, mental health, musculoskeletal)? @ -Chest pain] EKG interpreted by me (3pts min.). @ -As above EKG interpreted by me sinus rhythm at 73 parable 130 QRS duration 98 QT/QTc 406/432 possible RVH moderate T wave configuration which does not appear to be acute. X-rays interpreted by me (1pt min.). @ -Chest x-ray interpreted by me no acute CT interpreted by me (1pt min.). @ -None done U/S interpreted by me (1pt. min.). @ -None done What testing was considered but not performed or refused? (CT, X-rays, U/S, labs)? Why? @ -Further evaluation and treatment What meds were considered but not given or refused? Why? @ -None Did you discuss the management of the patient with other professionals (professionals i.e. DAMARI Newsome, WATERMELON HARVESTING SUPERVISOR, lab, RT, psych nurse, forensic social worker, plush cutter, teacher, aoc airspace control officer, case advocate)? Give summary @ -No Was smoking cessation discussed for >3mins.? @ -No Was critical care preformed (if so, how long)? @ -No Were there social determinants of health that impacted care today? How? (Homelessness, low income, unemployed, alcoholism, drug addiction, transportation, low edu. Level, literacy, decrease access to med. care, senior living, rehab)? @ -No Was there de-escalation of care discussed even if they declined (Discuss DNR or withdrawal of care, Hospice)? DNR status @ -No What co-morbidities impacted this encounter? (DM, HTN, Smoking, COPD, CAD, Cancer, CVA, ARF, Chemo, Hep., AIDS, mental health diagnosis, sleep apnea, morbid obesity)? @ -Hypertension, CVA, ADD, anxiety, depression] Was patient admitted / discharged? Hospital course, mention meds given and route, prescriptions, significant lab abnormalities, going to OR and other pertinent info. @ -Hospital course patient left the emergency department AGAINST MEDICAL ADVICE he did demonstrate decision-making capacity Undiagnosed new problem with uncertain prognosis? @ -No Drug Therapy requiring intensive monitoring for toxicity (Heparin, Nitro, Insulin, Cardizem)? @ -No Were any procedures done? @ -No Diagnosis/symptom? @ -Chest pain, hypertension Acute, or Chronic, or Acute on Chronic? @ -Acute Uncomplicated (without systemic symptoms) or Complicated (systemic symptoms)? @ -Default Side effects of treatment? @ -No Exacerbation, Progression, or Severe Exacerbation? @ -No Poses a threat to life or bodily function? How? (Chest pain, [place], [place], pneumonia, PE, COPD, DKA, ARF, appy, cholecystitis, CVA, Diverticulitis, Homicidal, Suicidal, threat to staff... and all critical care pts) @ -Potential Disposition Clinical Impression: Chest pain, Hypertension Disposition: LEFT AGAINST MEDICAL ADVICE Condition: Stable Referrals: None,Stated [Primary Care Provider] - 1-2 days Time of Disposition: 20:54 Decision Date: 02/21/24 Decision Time: 20:54
[2024-02-21 19:06] LABS: INR 0.9 (<1.2); Prothrombin Time 10.4 sec (10.0-12.5)
[2024-02-21 19:08] LABS: ALT 85 U/L (4-49); AST 82 U/L (17-59); African American GFR (CKD) >90 (>60 ml/min/1.73 sqM); Albumin 3.5 g/dL (3.5-5.0); Alkaline Phosphatase 99 U/L (38-126); Anion Gap 4 mmol/L; Blood Urea Nitrogen 26 mg/dL (9-20); Calcium 8.7 mg/dL (8.4-10.2); Carbon Dioxide 25 mmol/L (22-30); Chloride 107 mmol/L (98-107); Glucose 109 mg/dL (74-99); Lipase 225 U/L (23-300); Magnesium 1.9 mg/dL (1.6-2.3); Non-African American GFR(CKD) >90 (>60 ml/min/1.73 sqM); Potassium 4.2 mmol/L (3.5-5.1); Sodium 136 mmol/L (137-145); Total Bilirubin 0.5 mg/dL (0.2-1.3); Total Protein 6.9 g/dL (6.3-8.2)
[2024-02-21 19:16] LABS: NT-Pro-B-Type Natriuretic Pept 1460 pg/mL
[2024-02-21] MEDS: SODIUM CHLORIDE 0.9% 1,000 ML IV STA (20:24)
[2024-02-21 20:29] VITALS: BP 197/120; PULSE 77; RESP 18
== END 2024-02-21 21:05 | disposition left against medical advice (07) ==
LOC: EC 17:38
DX: I10 Essential (primary) hypertension (principal); Z53.21 Procedure and treatment not carried out due to patient leaving prior to being seen by health care provider; F41.9 Anxiety disorder, unspecified; F32.A Depression, unspecified; F98.8 Other specified behavioral and emotional disorders with onset usually occurring in childhood and adolescence; F17.200 Nicotine dependence, unspecified, uncomplicated; Z86.73 Personal history of transient ischemic attack (TIA), and cerebral infarction without residual deficits
CPT/HCPCS: 36415; 93005; 85379; 83880; 80053; 83690; 83735; 84484; 85025; 85610; 85730; 71046; 99285; 96374; 96361; J1885

== ENCOUNTER 2024-05-14 22:10 | Emergency (ER) | payer OTHER ==
[2024-05-14] MEDS: GLUCAGON 1 MG/ML VIAL IM STA (23:30)
--- NOTE | 2024-05-15 00:42 | ED ---
ENT HPI - General Chief complaint: ENT Stated complaint: Throat Pain Time Seen by Provider: 05/14/24 22:30 Source: patient, police Mode of arrival: ambulatory Limitations: no limitations - History of Present Illness Initial comments: 39-year-old male presenting with chief complaint of "an apple was stuck in my throat". [facility] by [facility]. Patient states that he took a bite of an apple, however he has no teeth so he was not able to chew the apple well. He states that he feels a piece stuck in his throat. Patient is having no difficulty breathing. He is still able to swallow. - Related Data Previous Rx's Medication Instructions Recorded Acetaminophen Tab [Tylenol] 650 mg PO Q6HR PRN tab 11/15/23 Lisinopril-Hctz 20-25 mg 1 tab PO DAILY 30 Days #30 tab 11/15/23 [Zestoretic 20-25] Nicotine 21Mg/24Hr Patch [Habitrol] 1 patch TRANSDERM DAILY patch 11/15/23 QUEtiapine [SEROquel] 100 mg PO HS 30 Days #30 tablet 11/15/23 Sertraline [Zoloft] 100 mg PO HS 30 Days #30 tab 11/15/23 carvediloL [Coreg] 6.25 mg PO BID 30 Days #60 tablet 11/15/23 rOPINIRole HCL [Requip] 0.5 mg PO HS 30 Days #60 tablet 11/15/23 Allergies Allergy/AdvReac Type Severity Reaction Status Date / Time No Known Allergies Allergy Verified 02/21/24 17:41 Review of Systems ROS Statement: Those systems with pertinent positive or pertinent negative responses have been documented in the HPI. ROS Other: All systems not noted in ROS Statement are negative. Past Medical History Past Medical History: Hypertension Additional Past Medical History / Comment(s): Migraines, L lower extremity cellulitis/sepsis, pilonidal cysts/abscesses. History of Any Multi-Drug Resistant Organisms: MRSA Date of last positivie culture/infection: 07/26/21 MDRO Source:: Right Testicle Past Surgical History: Cholecystectomy, Orthopedic Surgery Additional Past Surgical History / Comment(s): I&D testicle, R tib/fib fracture repair with hardware. Past Anesthesia/Blood Transfusion Reactions: No Reported Reaction Past Psychological History: ADD/ADHD, Anxiety, Depression Smoking Status: Current every day smoker Past Alcohol Use History: Rare Past Drug Use History: Marijuana, Methamphetamine - Past Family History Mother Family Medical History: Cancer Additional Family Medical History / Comment(s): cervical cancer Father Family Medical History: Cancer Additional Family Medical History / Comment(s): Father in 1997 from lung and liver cancer General Exam Limitations: no limitations General appearance: alert, in no apparent distress Head exam: Present: atraumatic, normocephalic Eye exam: Present: normal appearance, EOMI ENT exam: Present: normal oropharynx, mucous membranes moist Neck exam: Present: normal inspection. Absent: meningismus Respiratory exam: Absent: respiratory distress Cardiovascular Exam: Present: regular rate Neurological exam: Present: alert, oriented X3 Psychiatric exam: Present: normal affect, normal mood Skin exam: Present: normal color Course Vital Signs 05/14/24 05/15/24 05/15/24 22:13 00:50 01:59 Temperature 97.9 F 98 F Pulse Rate 69 58 L 55 L Respiratory 16 18 18 Rate Blood Pressure 188/98 188/123 147/92 O2 Sat by Pulse 97 96 97 Oximetry Medical Decision Making - Medical Decision Making Was pt. sent in by a medical professional or institution (, PA, TIRE MAN, urgent care, hospital, or half-way...) When possible be specific @ -No Did you speak to anyone other than the patient for history (EMS, parent, family, police, friend...)? What history was obtained from this source @ -No Did you review nursing and triage notes (agree or disagree)? Why? @ -I reviewed and agree with nursing and triage notes Were old charts reviewed (outside hosp., previous admission, EMS record, old EKG, old radiological studies, urgent care reports/EKG's, half-way records)? Report findings @ -No old charts were reviewed Differential Diagnosis (chest pain, altered mental status, abdominal pain women, abdominal pain men, vaginal bleeding, weakness, fever, dyspnea, syncope, headache, dizziness, GI bleed, back pain, seizure, CVA, palpatations, mental health, musculoskeletal)? @ -Differential includes foreign body, foreign body sensation, mass, this is not an all-inclusive list EKG interpreted by me (3pts min.). @ -As above X-rays interpreted by me (1pt min.). @ -None done CT interpreted by me (1pt min.). @ -None done U/S interpreted by me (1pt. min.). @ -None done What testing was considered but not performed or refused? (CT, X-rays, U/S, labs)? Why? @ -None What meds were considered but not given or refused? Why? @ -None Did you discuss the management of the patient with other professionals (professionals i.e. DrCésar, PA, TIRE MAN, lab, RT, psych nurse, family welfare social work professor, occupational medicine physician, teacher, property and supply officer, family caseworker)? Give summary @ -No Was smoking cessation discussed for >3mins.? @ -No Was critical care preformed (if so, how long)? @ -No Were there social determinants of health that impacted care today? How? (Homelessness, low income, unemployed, alcoholism, drug addiction, transportation, low edu. Level, literacy, decrease access to med. care, [facility], rehab)? @ -No Was there de-escalation of care discussed even if they declined (Discuss DNR or withdrawal of care, Hospice)? DNR status @ -No What co-morbidities impacted this encounter? (DM, HTN, Smoking, COPD, CAD, Cancer, CVA, ARF, Chemo, Hep., AIDS, mental health diagnosis, sleep apnea, morbid obesity)? @ -None Was patient admitted / discharged? Hospital course, mention meds given and route, prescriptions, significant lab abnormalities, going to OR and other pertinent info. @ -39-year-old male brought [facility] with complaints of a piece of an apple stuck in his throat. He is having no difficulty breathing and is still able to drink fluids. Patient is given 1 mg of glucagon and 5 mg Valium. He is also given soda and is instructed to jump up and down. Eventually the patient does feel the piece of the apple slide down his throat. The patient was hypertensive, he was given Catapres 0.1 mg and observed. Repeat blood pressure was 147/92. Patient is discharged back to [facility] in custody of PD. Report back to ER with any new or worsening symptoms. I answered all questions and the patient conveyed verbal understanding and agreement with the plan. I discussed this case with my attending Dr. Lopez. Undiagnosed new problem with uncertain prognosis? @ -No Drug Therapy requiring intensive monitoring for toxicity (Heparin, Nitro, Insulin, Cardizem)? @ -No Were any procedures done? @ -No Diagnosis/symptom? @ -Esophageal foreign body Acute, or Chronic, or Acute on Chronic? @ -Acute Uncomplicated (without systemic symptoms) or Complicated (systemic symptoms)? @ -Uncomplicated Side effects of treatment? @ -No Exacerbation, Progression, or Severe Exacerbation? @ -No Poses a threat to life or bodily function? How? (Chest pain, [place], [place], pneumonia, PE, COPD, DKA, ARF, appy, cholecystitis, CVA, Diverticulitis, Homicidal, Suicidal, threat to staff... and all critical care pts) @ -No Disposition Clinical Impression: Esophageal foreign body Disposition: HOME SELF-CARE Condition: Good Additional Instructions: Report back to ER with any new or worsening symptoms. Is patient prescribed a controlled substance at d/c from ED?: No Referrals: None,Stated [Primary Care Provider] - 1-2 days Time of Disposition: 00:42
[2024-05-15 00:56] VITALS: RESP 18
[2024-05-15] MEDS: cloNIDine HCL 0.1 MG TAB PO STA (01:01)
[2024-05-15 02:01] VITALS: BP 147/92; PULSE 55; TEMP 98
== END 2024-05-15 02:01 | disposition home or self-care (01) ==
LOC: EC 22:10
DX: T18.128A Food in esophagus causing other injury, initial encounter (principal); F17.200 Nicotine dependence, unspecified, uncomplicated; F12.90 Cannabis use, unspecified, uncomplicated; F15.90 Other stimulant use, unspecified, uncomplicated
CPT/HCPCS: 99282; 96372 ×2; J1610; J3360

== ENCOUNTER 2025-04-28 21:48 | Inpatient (IN) | payer OTHER ==
[2025-04-28] MEDS: lisinopriL 20 MG TAB PO STA (23:18)
[2025-04-28] MEDS: diazePAM 2 MG TAB PO STA (23:18)
[2025-04-29] MEDS: cloNIDine HCL 0.1 MG TAB PO STA (00:10)
[2025-04-29 02:26] LABS: Appearance,Urine Clear (Clear); Bilirubin,Urine Negative (Negative); Blood,Urine Negative (Negative); Color,Urine Colorless; Glucose,Urine (UA) Negative (Negative); Ketones,Urine Negative (Negative); Leukocyte Esterase,Urine Negative (Negative); Nitrite,Urine Negative (Negative); PH, Urine 5.5 (5.0-8.0); Protein,Urine Trace (Negative); Specific Gravity,Urine 1.013 (1.001-1.035); Urobilinogen,Urine <2.0 mg/dL (<2.0)
[2025-04-29 02:51] LABS: Amphetamine Screen,Urine Not Detected (NotDetected); Barbiturate Screen,Urine Not Detected (NotDetected); Benzodiazepines Screen,Urine Not Detected (NotDetected); Cocaine Screen,Urine Not Detected (NotDetected); Methadone Screen, Urine Not Detected (NotDetected); Opiate Screen,Urine Not Detected (NotDetected); Oxycodone Screen, Urine Not Detected (NotDetected); Phencyclidine Screen,Urine Not Detected (NotDetected); Tricyclic Antidepressant,Urine Not Detected (NotDetected); Urn Cannabinoid Scrn Not Detected (NotDetected)
[2025-04-29 02:54] LABS: Influenza A Not Detected (Not Detectd); Influenza B Not Detected (Not Detectd); RSV Not Detected (Not Detectd)
[2025-04-29] MEDS ORDERED: MAG HYDROX/AL HYDROX/SIMETH 355 ML BOTTLE PO PRN (03:31)
[2025-04-29] MEDS ORDERED: MAGNESIUM HYDROXIDE 2,400 MG/30 ML CUP PO PRN (03:31)
[2025-04-29] MEDS ORDERED: traZODone HCL 50 MG TAB PO PRN (03:31)
[2025-04-29] MEDS ORDERED: LORazepam 1 MG/0.5 ML VIAL IM PRN (03:31)
[2025-04-29] MEDS ORDERED: IBUPROFEN 600 MG TAB PO PRN (03:31)
[2025-04-29] MEDS ORDERED: haloperidoL 5 MG TAB PO PRN (03:31)
[2025-04-29] MEDS ORDERED: HALOPERIDOL LACTATE 5 MG/ML 1 ML VIAL IM PRN (03:31)
[2025-04-29] MEDS ORDERED: ACETAMINOPHEN TAB 325 MG TAB PO PRN (03:31)
[2025-04-29] MEDS: cloNIDine HCL 0.2 MG TAB PO STA (04:46)
--- NOTE | 2025-04-29 09:09 | ED ---
General Adult HPI - General Chief complaint: Psychiatric Symptoms Stated complaint: Suicidal,ETOH Time Seen by Provider: 04/28/25 22:13 Source: patient, EMS Mode of arrival: EMS Limitations: no limitations - History of Present Illness Initial comments: Patient is a 40-year-old gentleman presenting today for suicidal thoughts. States he is under increased amount of stress at home due to having to take care of his sick mother. States he has been drinking intermittently though not daily. Patient states his stress got to the point today where he admitted to his friend that he wanted to kill himself. Patient states that he would drive off of a bridge or overdose on his medications. He has had prior suicide attempts. He does have guns at home however they are locked away, and patient's mother has the keys to the safe. Patient denies visual hallucinations and does endorse auditory hallucinations. States that the voices he hears are not telli ng him to harm himself however he does tell him things like he is "useless". Patient did drink alcohol today. Denies illicit drug use. Also states that he has had difficulty controlling his blood pressure, takes 20 mg lisinopril daily. States that he was at the pharmacy today and checked his blood pressure and was noted to be high so he took an additional 20 mg lisinopril currently denies ches t pain, shortness of breath, strokelike symptoms or lower extremity swelling. - Related Data Previous Rx's Medication Instructions Recorded Acetaminophen Tab [Tylenol] 650 mg PO Q6HR PRN tab 11/15/23 Lisinopril-Hctz 20-25 mg 1 tab PO DAILY 30 Days #30 tab 11/15/23 [Zestoretic 20-25] Nicotine 21Mg/24Hr Patch [Habitrol] 1 patch TRANSDERM DAILY patch 11/15/23 QUEtiapine [SEROquel] 100 mg PO HS 30 Days #30 tablet 11/15/23 Sertraline [Zoloft] 100 mg PO HS 30 Days #30 tab 11/15/23 carvediloL [Coreg] 6.25 mg PO BID 30 Days #60 tablet 11/15/23 rOPINIRole HCL [Requip] 0.5 mg PO HS 30 Days #60 tablet 11/15/23 Allergies Allergy/AdvReac Type Severity Reaction Status Date / Time No Known Allergies Allergy Verified 04/29/25 11:42 Review of Systems ROS Statement: Those systems with pertinent positive or pertinent negative responses have been documented in the HPI. ROS Other: All systems not noted in ROS Statement are negative. Past Medical History Past Medical History: Hypertension Additional Past Medical History / Comment(s): Migraines, L lower extremity cellulitis/sepsis, pilonidal cysts/abscesses. History of Any Multi-Drug Resistant Organisms: MRSA Date of last positivie culture/infection: 07/26/21 MDRO Source:: Right Testicle Past Surgical History: Cholecystectomy, Orthopedic Surgery Additional Past Surgical History / Comment(s): I&D testicle, R tib/fib fracture repair with hardware. Past Anesthesia/Blood Transfusion Reactions: No Reported Reaction Past Psychological History: ADD/ADHD, Anxiety, Depression Smoking Status: Current every day smoker Past Alcohol Use History: Abuse, Daily, Heavy Past Drug Use History: Marijuana, Methamphetamine - Past Family History Mother Family Medical History: Cancer Additional Family Medical History / Comment(s): cervical cancer Father Family Medical History: Cancer Additional Family Medical History / Comment(s): Father in 1997 from lung and liver cancer General Exam - General Exam Comments Initial Comments: PE: CONSTITUTIONAL: No apparent distress, well appearing SKIN: Warm, dry, no jaundice, hives or petechiae EYES: Pupils are equally round, extraocular movements intact without nystagmus, clear conjunctiva, non-icteric sclera HENT: Normocephalic, atraumatic, moist mucus membranes, oropharynx clear without exudates NECK: , Full range of motion, normal appearance PULMONARY: Clear to auscultation without wheezes, rhonchi, or rales, normal excursion, no accessory muscle use and no stridor CARDIOVASCULAR: Regular rate, rhythm, normal S1 and S2. No appreciated murmurs, rubs or gallops. Strong radial pulses with intact distal perfusion. No lower extremity edema GASTROINTESTINAL: Soft, active bowel sounds throughout, non-tender, non-d istended, no palpable masses, no rebound or guarding. No hepatosplenomegaly GENITOURINARY: MUSCULOSKELETAL: Extremities have no gross deformity, no edema, redness, or swelling. No calf swelling NEUROLOGIC:_a/o x 3, GCS 15, normal mentation and clear speech. Moves all extremities x 4 without motor or sensory deficit PSYCHIATRIC: Anxious mood and affect, rapid and pressured speech, pacing room, suicidal, denies HI, does not appear to be showing internal stimuli is cooperative, pleasant and redirectable Limitations: no limitations Course Vital Signs 04/28/25 04/28/25 04/29/25 22:09 23:20 00:49 Temperature 97.5 F L Pulse Rate 90 Respiratory 18 Rate Blood Pressure 190/140 196/130 169/91 O2 Sat by Pulse 100 Oximetry 04/29/25 04/29/25 04/29/25 05:18 06:03 07:54 Temperature 97.7 F Pulse Rate 90 Respiratory 17 Rate Blood Pressure 189/127 164/91 164/112 O2 Sat by Pulse 99 Oximetry 04/29/25 04/29/25 09:13 09:57 Temperature Pulse Rate 89 Respiratory 19 Rate Blood Pressure 166/105 149/88 O2 Sat by Pulse 97 Oximetry Medical Decision Making - Medical Decision Making Was pt. sent in by a medical professional or institution (, PA, VICE PRESIDENT LENDING, urgent care, hospital, or intermediate...) When possible be specific @ -No Did you speak to anyone other than the patient for history (EMS, parent, family, police, friend...)? What history was obtained from this source @ -No Did you review nursing and triage notes (agree or disagree)? Why? @ -I reviewed and agree with nursing and triage notes Were old charts reviewed (outside hosp., previous admission, EMS record, old EKG, old radiological studies, urgent care reports/EKG's, intermediate records)? Report findings @ -Medical records reviewed-Reviewed psychiatric consultation note done on 11/05/2023, per this note patient had initially presented for auditory hallucinations, depression and suicidal ideation. Per this note patient has had multiple prior inpatient psychiatric hospital admissions. Differential Diagnosis (chest pain, altered mental status, abdominal pain women, abdominal pain men, vaginal bleeding, weakness, fever, dyspnea, syncope, headache, dizziness, GI bleed, back pain, seizure, CVA, palpatations, mental health, musculoskeletal)? Differential Mental Health Depression, anxiety, bipolar, psychosis, schizophrenia, borderline personality, situational depression, adjustment disorder, behavioral disorder, brain tumor, malingering, substance abuse, encephalopathy, medication reaction, dementia, hypothyroidism, degenerative neurologic disorder, lupus.... This is not meant to be all-inclusive list EKG interpreted by me (3pts min.). @ -As above X-rays interpreted by me (1pt min.). @ -None done CT interpreted by me (1pt min.). @ -None done U/S interpreted by me (1pt. min.). @ -None done What testing was considered but not performed or refused? (CT, X-rays, U/S, labs)? Why? @ -Basic labs and chest x-ray were considered due to hypertension however patient was asymptomatic for signs of hypertensive emergency so these are not indicated at this point What meds were considered but not given or refused? Why? @ -None Did you discuss the management of the patient with other professionals (professionals i.e. DrCésar, PA, VICE PRESIDENT LENDING, lab, RT, psych nurse, social media specialist, meat stuffer, teacher, financial aids officer, outpatient case manager)? Give summary @ -No Was smoking cessation discussed for >3mins.? @ -No Was critical care preformed (if so, how long)? @ -No Were there social determinants of health that impacted care today? How? (H omelessness, low income, unemployed, alcoholism, drug addiction, transportation, low edu. Level, literacy, decrease access to med. care, [facility], rehab)? @ -No Was there de-escalation of care discussed even if they declined (Discuss DNR or withdrawal of care, Hospice)? @ -No What co-morbidities impacted this encounter? (DM, HTN, Smoking, COPD, CAD, Cancer, CVA, ARF, Chemo, Hep., AIDS, mental health diagnosis, sleep apnea, morbid obesity)? @ -Hypertension, depression Was patient admitted / discharged? Hospital course, mention meds given and route, prescriptions, significant lab abnormalities, going to OR and other pertinent info. @Transferred inpatient psychiatric unit- patient is a 40-year-old man presenting today for suicidal thoughts. On my assessment he is awake alert, pacing around his room. He does have rapid and pressured speech, he is anxious. He is redirectable. Does not appear to respond to internal stimuli. Endorses a plan of driving off of a bridge or overdosing on his medications. Denies HI. Endorses auditory hallucinations. Discussed with patient plan of care for EPS evaluation. Patient was notably hypertensive With blood pressure 190/140 on arrival however he is otherwise asymptomatic for signs of hypertensive emergency including stroke like symptoms, acute vision changes, new numbness or focal weakness, dizziness, chest pain, shortness of breath or LE swelling. Will give sadditional dose of home lisinopril, Catapres as well as Valium as needed suspect some of patient's hypertension is driven by agitation. Discussed with patient plan for EPS evaluation to which he is agreeable. Pt seen by EPS RN, Ebony, will admit pt to psych floor. Blood pressure did somewhat improve with Catapres, lisinopril, patient was accepted for admission to psychiatric floor however prior to transfer upstairs blood pressure did rise again. He will receive another dose 0.2 mg catapres prior to transfer to psych floor. Undiagnosed new problem with uncertain prognosis? @ -No Drug Therapy requiring intensive monitoring for toxicity (Heparin, Nitro, Insulin, Cardizem)? @ -No Were any procedures done? @ -No Diagnosis/symptom? @SI, hypertension Acute, or Chronic, or Acute on Chronic? @ acute Uncomplicated (without systemic symptoms) or Complicated (systemic symptoms)? @ -complicated Side effects of treatment? @ -No Exacerbation, Progression, or Severe Exacerbation? @ -No Poses a threat to life or bodily function? How? (Chest pain, [place], [place], pneumonia, PE, COPD, DKA, ARF, appy, cholecystitis, CVA, Diverticulitis, Homicidal, Suicidal, threat to staff... and all critical care pts) yes - Lab Data Result diagrams: 04/29/25 09:15 04/29/25 09:15 Lab Results 04/29/25 04/29/25 04/29/25 Range/Units 01:47 01:51 01:51 WBC (4.50-10.00) 10*3/uL RBC (4.40-5.60) 10*6/uL Hgb (13.0-17.0) g/dL Hct (39.6-50.0) % MCV (80.0-97.0) fL MCH (27.0-32.0) pg MCHC (32.0-37.0) g/dL Plt Count (140-440) 10*3/uL MPV (9.5-12.2) fL Immature Gran % (Auto) % Neutrophils % % Lymphocytes % % Monocytes % % Eosinophils % % Basophils % % Immature Gran # (0.00-0.04) 10*3/uL Neutrophils # (1.80-7.70) 10*3/uL Lymphocytes # (0.90-5.00) 10*3/uL Monocytes # (0.20-1.00) 10*3/uL Eosinophils # (0.04-0.35) 10*3/uL Basophils # (0.00-0.10) 10*3/uL Sodium (137-145) mmol/L Potassium (3.5-5.1) mmol/L Chloride (98-107) mmol/L Carbon Dioxide (22-30) mmol/L Anion Gap mmol/L BUN (9-20) mg/dL Creatinine (0.66-1.25) mg/dL Est GFR (CKD-EPI)AfAm (>60 ml/min/1.73 sqM) Est GFR (CKD-EPI)NonAf (>60 ml/min/1.73 sqM) Glucose (74-99) mg/dL Estimated Ave Glu mg/dL mg/dL Hemoglobin A1c (<=6.0) % Calcium (8.4-10.2) mg/dL Total Bilirubin (0.2-1.3) mg/dL Conjugated Bilirubin (0.0-0.3) mg/dL Unconjugated Bilirubin (0.0-1.1) mg/dL Delta Bilirubin (0.0-0.2) mg/dL AST (17-59) U/L ALT (4-49) U/L Alkaline Phosphatase (38-126) U/L Total Protein (6.3-8.2) g/dL Albumin (3.5-5.0) g/dL Triglycerides (0.00-149.00) mg/dL Cholesterol (0.00-200.00) mg/dL LDL Cholesterol, Calc (0.0-131.0) mg/dL VLDL Cholesterol, Calc (5.00-40.00) mg/dL HDL Cholesterol (40.00-60.00) mg/dL Cholesterol/HDL Ratio Ratio TSH (0.465-4.680) mIU/L Urine Color Colorless Urine Appearance Clear (Clear) Urine pH 5.5 (5.0-8.0) Ur Specific [place] 1.013 (1.001-1.035) Urine Protein Trace H (Negative) Urine Glucose (UA) Negative (Negative) Urine Ketones Negative (Negative) Urine Blood Negative (Negative) Urine Nitrite Negative (Negative) Urine Bilirubin Negative (Negative) Urine Urobilinogen <2.0 (<2.0) mg/dL Ur Leukocyte Esterase Negative (Negative) Urine Opiates Screen Not Detected (NotDetected) Ur Oxycodone Screen Not Detected (NotDetected) Urine Methadone Screen Not Detected (NotDetected) Ur Barbiturates Screen Not Detected (NotDetected) U Tricyclic Antidepress Not Detected (NotDetected) Ur Phencyclidine Scrn Not Detected (NotDetected) Ur Amphetamines Screen Not Detected (NotDetected) U Methamphetamines Scrn Not Detected (NotDetected) U Benzodiazepines Scrn Not Detected (NotDetected) Urine Cocaine Screen Not Detected (NotDetected) U Marijuana (THC) Screen Not Detected (NotDetected) Influenza Type A (PCR) Not Detected (Not Detectd) Influenza Type B (PCR) Not Detected (Not Detectd) RSV (PCR) Not Detected (Not Detectd) SARS-CoV-2 (PCR) Not Detected (Not Detectd) 04/29/25 04/29/25 04/29/25 Range/Units 09:15 09:15 09:15 WBC 5.63 (4.50-10.00) 10*3/uL RBC 4.38 L (4.40-5.60) 10*6/uL Hgb 14.5 (13.0-17.0) g/dL Hct 40.6 (39.6-50.0) % MCV 92.7 (80.0-97.0) fL MCH 33.1 H (27.0-32.0) pg MCHC 35.7 (32.0-37.0) g/dL Plt Count 160 (140-440) 10*3/uL MPV 10.6 (9.5-12.2) fL Immature Gran % (Auto) 0.2 % Neutrophils % 58.8 % Lymphocytes % 25.4 % Monocytes % 12.8 % Eosinophils % 2.3 % Basophils % 0.5 % Immature Gran # 0.01 (0.00-0.04) 10*3/uL Neutrophils # 3.31 (1.80-7.70) 10*3/uL Lymphocytes # 1.43 (0.90-5.00) 10*3/uL Monocytes # 0.72 (0.20-1.00) 10*3/uL Eosinophils # 0.13 (0.04-0.35) 10*3/uL Basophils # 0.03 (0.00-0.10) 10*3/uL Sodium 134 L (137-145) mmol/L Potassium 4.1 (3.5-5.1) mmol/L Chloride 102 (98-107) mmol/L Carbon Dioxide 26 (22-30) mmol/L Anion Gap 6 mmol/L BUN 14 (9-20) mg/dL Creatinine 0.84 (0.66-1.25) mg/dL Est GFR (CKD-EPI)AfAm >90 (>60 ml/min/1.73 sqM) Est GFR (CKD-EPI)NonAf >90 (>60 ml/min/1.73 sqM) Glucose 82 (74-99) mg/dL Estimated Ave Glu mg/dL 103 mg/dL Hemoglobin A1c 5.2 (<=6.0) % Calcium 8.9 (8.4-10.2) mg/dL Total Bilirubin 0.4 (0.2-1.3) mg/dL Conjugated Bilirubin 0.0 (0.0-0.3) mg/dL Unconjugated Bilirubin 0.2 (0.0-1.1) mg/dL Delta Bilirubin 0.2 (0.0-0.2) mg/dL AST 137 H (17-59) U/L ALT 132 H (4-49) U/L Alkaline Phosphatase 162 H (38-126) U/L Total Protein 6.2 L (6.3-8.2) g/dL Albumin 3.2 L (3.5-5.0) g/dL Triglycerides 52.50 (0.00-149.00) mg/dL Cholesterol 114.00 (0.00-200.00) mg/dL LDL Cholesterol, Calc 32.8 (0.0-131.0) mg/dL VLDL Cholesterol, Calc 10.50 (5.00-40.00) mg/dL HDL Cholesterol 70.70 H (40.00-60.00) mg/dL Cholesterol/HDL Ratio 1.61 Ratio TSH 2.090 (0.465-4.680) mIU/L Urine Color Urine Appearance (Clear) Urine pH (5.0-8.0) Ur Specific [place] (1.001-1.035) Urine Protein (Negative) Urine Glucose (UA) (Negative) Urine Ketones (Negative) Urine Blood (Negative) Urine Nitrite (Negative) Urine Bilirubin (Negative) Urine Urobilinogen (<2.0) mg/dL Ur Leukocyte Esterase (Negative) Urine Opiates Screen (NotDetected) Ur Oxycodone Screen (NotDetected) Urine Methadone Screen (NotDetected) Ur Barbiturates Screen (NotDetected) U Tricyclic Antidepress (NotDetected) Ur Phencyclidine Scrn (NotDetected) Ur Amphetamines Screen (NotDetected) U Methamphetamines Scrn (NotDetected) U Benzodiazepines Scrn (NotDetected) Urine Cocaine Screen (NotDetected) U Marijuana (THC) Screen (NotDetected) Influenza Type A (PCR) (Not Detectd) Influenza Type B (PCR) (Not Detectd) RSV (PCR) (Not Detectd) SARS-CoV-2 (PCR) (Not Detectd) Disposition Clinical Impression: Suicidal thoughts, Acute anxiety, Alcohol intoxication Disposition: TRANSFER TO PSYCH HOSP/UNIT Condition: Stable
[2025-04-29] MEDS: NICOTINE 14MG/24HR PATCH TRANSDERM SCH (09:12)
[2025-04-29] MEDS: LISINOPRIL-HCTZ 20-25 MG 1 EACH TAB PO SCH (09:31)
[2025-04-29 09:45] LABS: Basophils # (A) 0.03 10*3/uL (0.00-0.10); Basophils % (A) 0.5 %; Eosinophils # (A) 0.13 10*3/uL (0.04-0.35); Eosinophils % (A) 2.3 %; HCT 40.6 % (39.6-50.0); HGB 14.5 g/dL (13.0-17.0); Lymphocytes # (A) 1.43 10*3/uL (0.90-5.00); Lymphocytes % (A) 25.4 %; MCH 33.1 pg (27.0-32.0); MCHC 35.7 g/dL (32.0-37.0); MCV 92.7 fL (80.0-97.0); Mean Platelet Volume 10.6 fL (9.5-12.2); Monocytes # (A) 0.72 10*3/uL (0.20-1.00); Monocytes % (A) 12.8 %; Neutrophils # (A) 3.31 10*3/uL (1.80-7.70); Neutrophils % (A) 58.8 %; Platelet Count 160 10*3/uL (140-440); RBC 4.38 10*6/uL (4.40-5.60); WBC 5.63 10*3/uL (4.50-10.00)
[2025-04-29 10:09] LABS: ALT 132 U/L (4-49); AST 137 U/L (17-59); African American GFR (CKD) >90 (>60 ml/min/1.73 sqM); Albumin 3.2 g/dL (3.5-5.0); Alkaline Phosphatase 162 U/L (38-126); Anion Gap 6 mmol/L; Bilirubin, Delta 0.2 mg/dL (0.0-0.2); Bilirubin,Unconjugated 0.2 mg/dL (0.0-1.1); Blood Urea Nitrogen 14 mg/dL (9-20); Calcium 8.9 mg/dL (8.4-10.2); Carbon Dioxide 26 mmol/L (22-30); Chloride 102 mmol/L (98-107); Glucose 82 mg/dL (74-99); Non-African American GFR(CKD) >90 (>60 ml/min/1.73 sqM); Potassium 4.1 mmol/L (3.5-5.1); Sodium 134 mmol/L (137-145); Total Bilirubin 0.4 mg/dL (0.2-1.3); Total Protein 6.2 g/dL (6.3-8.2)
[2025-04-29] MEDS ORDERED: LORazepam 1 MG TAB PO PRN ×2 (11:18)
[2025-04-29] MEDS: LORazepam 1 MG TAB PO STA (11:29)
[2025-04-29 11:39] VITALS: TEMP 98.2
[2025-04-29 12:27] VITALS: BP 176/111; PULSE 71; RESP 18
[2025-04-29] MEDS: NICOTINE GUM (POLACRILEX) 2 MG GUM BUCCAL PRN (12:27)
[2025-04-29] MEDS: buPROPion XL 150 MG TAB.ER.24H PO SCH (12:28)
--- NOTE | 2025-04-29 12:36 | P.HP ---
Psychiatric H&P - . H&P Date: 04/29/25 History & Physical: Allergies Allergy/AdvReac Type Severity Reaction Status Date / Time No Known Allergies Allergy Verified 04/29/25 11:42 Vital Signs Temp 98.2 F 04/29/25 11:33 Pulse 71 04/29/25 12:27 Resp 18 04/29/25 12:27 BP 176/111 04/29/25 12:27 Pulse Ox 98 04/29/25 12:27 FiO2 Intake & Output 04/28/25 04/29/25 04/29/25 18:59 06:59 18:59 Weight 83.007 kg 81.647 kg Laboratory Last Values WBC 5.63 10*3/uL (4.50-10.00) 04/29/25 09:15 RBC 4.38 10*6/uL (4.40-5.60) L 04/29/25 09:15 Hgb 14.5 g/dL (13.0-17.0) 04/29/25 09:15 Hct 40.6 % (39.6-50.0) 04/29/25 09:15 MCV 92.7 fL (80.0-97.0) 04/29/25 09:15 MCH 33.1 pg (27.0-32.0) H 04/29/25 09:15 MCHC 35.7 g/dL (32.0-37.0) 04/29/25 09:15 Plt Count 160 10*3/uL (140-440) 04/29/25 09:15 MPV 10.6 fL (9.5-12.2) 04/29/25 09:15 Immature Gran % (Auto) 0.2 % 04/29/25 09:15 Neutrophils % 58.8 % 04/29/25 09:15 Lymphocytes % 25.4 % 04/29/25 09:15 Monocytes % 12.8 % 04/29/25 09:15 Eosinophils % 2.3 % 04/29/25 09:15 Basophils % 0.5 % 04/29/25 09:15 Immature Gran # 0.01 10*3/uL (0.00-0.04) 04/29/25 09:15 Neutrophils # 3.31 10*3/uL (1.80-7.70) 04/29/25 09:15 Lymphocytes # 1.43 10*3/uL (0.90-5.00) 04/29/25 09:15 Monocytes # 0.72 10*3/uL (0.20-1.00) 04/29/25 09:15 Eosinophils # 0.13 10*3/uL (0.04-0.35) 04/29/25 09:15 Basophils # 0.03 10*3/uL (0.00-0.10) 04/29/25 09:15 Sodium 134 mmol/L (137-145) L 04/29/25 09:15 Potassium 4.1 mmol/L (3.5-5.1) 04/29/25 09:15 Chloride 102 mmol/L (98-107) 04/29/25 09:15 Carbon Dioxide 26 mmol/L (22-30) 04/29/25 09:15 Anion Gap 6 mmol/L 04/29/25 09:15 BUN 14 mg/dL (9-20) 04/29/25 09:15 Creatinine 0.84 mg/dL (0.66-1.25) 04/29/25 09:15 Est GFR (CKD-EPI)AfAm >90 (>60 ml/min/1.73 sqM) 04/29/25 09:15 Est GFR (CKD-EPI)NonAf >90 (>60 ml/min/1.73 sqM) 04/29/25 09:15 Glucose 82 mg/dL (74-99) 04/29/25 09:15 Calcium 8.9 mg/dL (8.4-10.2) 04/29/25 09:15 Total Bilirubin 0.4 mg/dL (0.2-1.3) 04/29/25 09:15 Conjugated Bilirubin 0.0 mg/dL (0.0-0.3) 04/29/25 09:15 Unconjugated Bilirubin 0.2 mg/dL (0.0-1.1) 04/29/25 09:15 Delta Bilirubin 0.2 mg/dL (0.0-0.2) 04/29/25 09:15 AST 137 U/L (17-59) H 04/29/25 09:15 ALT 132 U/L (4-49) H 04/29/25 09:15 Alkaline Phosphatase 162 U/L (38-126) H 04/29/25 09:15 Total Protein 6.2 g/dL (6.3-8.2) L 04/29/25 09:15 Albumin 3.2 g/dL (3.5-5.0) L 04/29/25 09:15 TSH 2.090 mIU/L (0.465-4.680) 04/29/25 09:15 Urine Color Colorless 04/29/25 01:51 Urine Appearance Clear (Clear) 04/29/25 01:51 Urine pH 5.5 (5.0-8.0) 04/29/25 01:51 Ur Specific [place] 1.013 (1.001-1.035) 04/29/25 01:51 Urine Protein Trace (Negative) H 04/29/25 01:51 Urine Glucose (UA) Negative (Negative) 04/29/25 01:51 Urine Ketones Negative (Negative) 04/29/25 01:51 Urine Blood Negative (Negative) 04/29/25 01:51 Urine Nitrite Negative (Negative) 04/29/25 01:51 Urine Bilirubin Negative (Negative) 04/29/25 01:51 Urine Urobilinogen <2.0 mg/dL (<2.0) 04/29/25 01:51 Ur Leukocyte Esterase Negative (Negative) 04/29/25 01:51 Urine Opiates Screen Not Detected (NotDetected) 04/29/25 01:51 Ur Oxycodone Screen Not Detected (NotDetected) 04/29/25 01:51 Urine Methadone Screen Not Detected (NotDetected) 04/29/25 01:51 Ur Barbiturates Screen Not Detected (NotDetected) 04/29/25 01:51 U Tricyclic Antidepress Not Detected (NotDetected) 04/29/25 01:51 Ur Phencyclidine Scrn Not Detected (NotDetected) 04/29/25 01:51 Ur Amphetamines Screen Not Detected (NotDetected) 04/29/25 01:51 U Methamphetamines Scrn Not Detected (NotDetected) 04/29/25 01:51 U Benzodiazepines Scrn Not Detected (NotDetected) 04/29/25 01:51 Urine Cocaine Screen Not Detected (NotDetected) 04/29/25 01:51 U Marijuana (THC) Screen Not Detected (NotDetected) 04/29/25 01:51 Influenza Type A (PCR) Not Detected (Not Detectd) 04/29/25 01:47 Influenza Type B (PCR) Not Detected (Not Detectd) 04/29/25 01:47 RSV (PCR) Not Detected (Not Detectd) 04/29/25 01:47 SARS-CoV-2 (PCR) Not Detected (Not Detectd) 04/29/25 01:47 04/29/25 12:28 IDENTIFYING DATA: Patient is a 40-year-old male, on SSD, living with mom CHIEF COMPLAINT: SI with a plan HPI: Patient presented to the hospital with suicidal ideations. EPS, "Pt presents voluntary to EC /c suicidal ideation /c a plan to "take sleeping meds and not wake up." Pt denies HI, and no delusional thoughts verbalized. Pt states he has audio hallucinations "all the time. I hear voices all the time. They cut me down and tell me I'm a worthless piece of shit, I'm a fuck up. I'm a fucking fuck up loser that ain't no good. How would you like to be told that all day every day? I don't care about living. I'm a miserable old piece of shit. I just want to . I want to kill myself." A&Ox3, poor eye contact (pt kept pulling blanket over his head), clear speech, irritable depressed mood, cooperative /c EPS." Patient seen and evaluated on the unit and was agreeable with speaking to telegraphic typewriter repairer in office. He identifies several psychosocial stressors that are contributing to his current mood symptoms. He states his mother has vulvar cancer that recently spread to her anus and that she is dying. 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 He states his younger brothers are also in half-way for things that he did not commit. He reports himself being on probation for destruction of property at his mother's house and must see his public information officer on 05/06 to avoid shelter. He states he drinks to numb his problems. He states on average drinking 1 pint of hard liquor twice a week however for the past 6 days he has drank up to 3 pints of hard liquor daily. He reports nausea right now, denying any sweats or tremors. Patient's vitals have been elevated and difficult to control which could be related to withdrawal from alcohol versus primary hypertension. Patient does admit to recent blood pressure of over 200/100 with physical symptoms including excess sweating, dizziness and headache. He claims to have been taking his blood pressure medication until his insurance became inactive and he was unable to fill this medication. He claims to have been taking Seroquel up until 3-4 days ago when he ran out. Patient reports sleep difficulties, denying appetite changes, changes in concentration, denying low energy or anhedonia. He claims he was intoxicated when he was making suicidal statements, no longer feeling this way and he was goal oriented today, expressed a desire to return home with his mother to take care of her and make his public information officer meeting next week. He reports anxiety however this is directly related to his mother being ill. Patient denies any suicidal or homicidal ideations intent or plan. At this time patient denies any auditory or visual hallucinations. Patient denies any flight of ideas racing thoughts and increased in goal directed behavior. Patient admits to using alcohol daily for the past 6 days, nicotine daily, sober from opiates for 10 years. PAST PSYCHIATRIC HISTORY: Patient has a history of bipolar disorder, methamphetamine use disorder, opioid use disorder, benzodiazepine abuse, alcohol abuse. Patient denies being on any psychiatric medications. He ran out of Seroquel 100 mg at bedtime 3-4 days ago. Patient reports several inpatient hospitalizations, most recent being at this facility in 2022. Patient denies any psychiatric outpatient follow-up. Patient reports 1 remote suicide attempt back in 1996. PMH: as per ER note ALLERGIES: as per EMR SUBSTANCE USE HISTORY: As per HPI FAMILY PSYCHIATRIC/SUBSTANCE USE HISTORY: Patient states his mother has bipolar disorder and is currently on Prozac. SOCIAL HISTORY: Patient is single, living with his mother and has 3 kids. He is currently on SSI, completed schooling up to the 11th grade of high school and is currently on probation for destruction of property. MENTAL STATUS EXAM: General Appearance: Patient appears to be slightly older than stated age is alert, directable, and attempts to cooperate. Patient appears to have poor hygiene and grooming. Behavior: Patient is seated without any agitated behavior. Speech: Patient's speech is fluent and nonpressured. Mood/Affect: Patient reports their mood is depressed, affect is congruent and constricted. Suicidality/Homicidality: Patient denies having any homicidal ideation intent or plan. Denies any suicidal ideations intent or plan Perceptions: Patient denies any visual hallucinations and denies any auditory hallucinations Though content/process: There is no evidence of any delusional thought content and thought process is linear and goal-directed. Memory and concentration: AOX3, grossly intact for the purposes of this session. Can spell "WORLD" backwards Judgment and insight: Poor STRENGTHS/WEAKNESSES: strength is that patient is resilient. Weakness is that patient has poor judgment, abuses alcohol and is impulsive INTELLECT: Average IMPRESSIONS: Adjustment disorder with depressed and anxious mood Alcohol use disorder, severe in withdrawal Opioid use disorder, in remission Methamphetamine use disorder, in remission Nicotine dependence PLAN: -Patient is admitted under voluntary status to MHU for stabilization of psychiatric symptoms and safety. Patient has signed adult voluntary form and and is placed in patient's chart. -Medications : Start Wellbutrin XL 150 mg daily for depression, Seroquel 100 mg at bedtime for insomnia - Ativan and Haldol PRN for agitation/aggression -Started thiamine, MVM for etoh use -CIWA protocol with Ativan PRN for ETOH withdrawal. -Patient was counselled on substance abuse and desired to cut back on use-Will offer patient subtance use rehab -Patient was informed of the risks, benefits and side effects of the medication and patient verbally consented to taking the medications. Patient signed med consent form and was placed in chart. Patient offered and declined patient education sheet for psychotropic medications. -Internal Medicine consult to perform medical evaluation and physical. -NRT -nicotine patch -SW on board for discharge planning. Encourage patient to participate in groups to work on coping skills. Patient's vitals have been elevated, difficult to c ontrol and will be transferred to the medical floor for further management. Science Intern to follow-up with patient along during the transfer.
--- NOTE | 2025-04-29 12:41 | P.DS ---
Providers Date of admission: 04/29/25 10:50 Expected date of discharge: 04/29/25 Attending physician: Tiffanie Shay MD Consults: 04/29/25 03:31 Consult Physician Routine Consulting Provider: Gayle Huertas Consult Reason/Comments: For H & P for Medical Follow Up Do you want consulting provider notified?: Yes Primary care physician: Stated None - Discharge Diagnosis(es) (1) Adjustment disorder with mixed anxiety and depressed mood Current Visit: Yes Status: Acute Priority: High (2) Methamphetamine use disorder, mild, in sustained remission Current Visit: Yes Status: Chronic Priority: Low (3) Alcohol use disorder Current Visit: Yes Status: Acute Priority: High (4) Nicotine dependence Current Visit: Yes Status: Acute Priority: Low (5) Opioid use disorder in remission Current Visit: Yes Status: Chronic Priority: Low Hospital Course: Admission HPI: Admission note was completed by writer editor" Patient presented to the hospital with suicidal ideations. EPS, "Pt presents voluntary to EC /c suicidal ideation /c a plan to "take sleeping meds and not wake up." Pt denies HI, and no delusional thoughts verbalized. Pt states he has audio hallucinations "all the time. I hear voices all the time. They cut me down and tell me I'm a worthless piece of shit, I'm a fuck up. I'm a fucking fuck up loser that ain't no good. How would you like to be told that all day every day? I don't care about living. I'm a miserable old piece of shit. I just want to . I want to kill myself." A&Ox3, poor eye contact (pt kept pulling blanket over his head), clear speech, irritable depressed mood, cooperative /c EPS." Patient seen and evaluated on the unit and was agreeable with speaking to writer editor in office. He identifies several psychosocial stressors that are contributing to his current mood symptoms. He states his mother has vulvar cancer that recently spread to her anus and that she is dying. 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 He states his younger brothers are also in halfway for things that he did not commit. He reports himself being on probation for destruction of property at his mother's house and must see his sustainability officer on 05/06 to avoid senior living. He states he drinks to numb his problems. He states on average drinking 1 pint of hard liquor twice a week however for the past 6 days he has drank up to 3 pints of hard liquor daily. He reports nausea right now, denying any sweats or tremors. Patient's vitals have been elevated and difficult to control which could be related to withdrawal from alcohol versus primary hypertension. Patient does admit to recent blood pressure of over 200/100 with physical symptoms including excess sweating, dizziness and headache. He claims to have been taking his blood pressure medication until his insurance became inactive and he was unable to fill this medication. He claims to have been taking Seroquel up until 3-4 days ago when he ran out. Patient reports sleep difficulties, denying appetite changes, changes in concentration, denying low energy or anhedonia. He claims he was intoxicated when he was making suicidal statements, no longer feeling this way and he was goal oriented today, expressed a desire to return home with his mother to take care of her and make his sustainability officer meeting next week. He reports anxiety however this is directly related to his mother being ill. Patient denies any suicidal or homicidal ideations intent or plan. At this time patient denies any auditory or visual hallucinations. Patient denies any flight of ideas racing thoughts and increased in goal directed behavior. Patient admits to using alcohol daily for the past 6 days, nicotine daily, sober from opiates for 10 years." Hospital course: Upon admission to the unit patient was directable and agreeable to commence treatment and signed adult voluntary form.. Patient got along well with other patients on the unit and followed unit protocol. Patient was compliant with the medications and denied any side effects throughout hospital course. Patient was started on Wellbutrin XL 150 mg daily for depression, Seroquel 100 mg at bedtime for insomnia. Patient spoke of his stressors and engaged in therapy both group and individual. Patient was also seen by medical team for history and physical exam. Patient displayed hypertension with vitals up to 183/116 when transferred over from the emergency department. He was given several medications to treat this however it was still elevated. Unclear if this is a sequela of alcohol withdrawal versus primary hypertension, patient to be transferred to the medical floor and psychiatry will follow while there. Mental status exam: Please refer to MSE from H&P on 04/29/2025 Impression: Adjustment disorder with depressed and anxious mood alcohol use disorder, severe in withdrawal Opioid use disorder, in remission Methamphetamine use disorder, in remission Nicotine dependence Plan: -Continue with discharge today as patient has improved and stabilized psychiatrically and is not currently an imminent threat to themself and/or others. Patient will remain at chronically elevated risk for harm to self and/or others due to their impulsivity and substance abuse. -Continue medications: Wellbutrin XL 150 mg daily, Seroquel 100 mg at bedtime -Patient to be transferred to the medical floor given unstable vitals with psychiatric consult placed for further psychiatric management Abnormal Labs 04/29/25 04/29/25 04/29/25 01:51 09:15 09:15 RBC 4.38 L MCH 33.1 H Sodium 134 L AST 137 H ALT 132 H Alkaline Phosphatase 162 H Total Protein 6.2 L Albumin 3.2 L Urine Protein Trace H Allergies Allergy/AdvReac Type Severity Reaction Status Date / Time No Known Allergies Allergy Verified 04/29/25 11:42 Vital Signs Temp 98.2 F 04/29/25 11:33 Pulse 71 04/29/25 12:27 Resp 18 04/29/25 12:27 BP 176/111 04/29/25 12:27 Pulse Ox 98 04/29/25 12:27 FiO2 Intake & Output 04/28/25 04/29/25 04/29/25 18:59 06:59 18:59 Weight 83.007 kg 81.647 kg Patient Condition at Discharge: Stable Plan - Discharge Summary Discharge Rx Participant: No New Discharge Prescriptions: No Action Nicotine 21Mg/24Hr Patch [Habitrol] 1 patch TRANSDERM DAILY patch Acetaminophen Tab [Tylenol] 650 mg PO Q6HR PRN tab PRN Reason: Mild Pain (Scale 1 To 3) QUEtiapine [SEROquel] 100 mg PO HS 30 Days #30 tablet Sertraline [Zoloft] 100 mg PO HS 30 Days #30 tab carvediloL [Coreg] 6.25 mg PO BID 30 Days #60 tablet rOPINIRole HCL [Requip] 0.5 mg PO HS 30 Days #60 tablet Lisinopril-Hctz 20-25 mg [Zestoretic 20-25] 1 tab PO DAILY 30 Days #30 tab Discharge Medication List Acetaminophen Tab [Tylenol] 650 mg PO Q6HR PRN tab 11/15/23 [Rx] Lisinopril-Hctz 20-25 mg [Zestoretic 20-25] 1 tab PO DAILY 30 Days #30 tab 11/15/23 [Rx] Nicotine 21Mg/24Hr Patch [Habitrol] 1 patch TRANSDERM DAILY patch 11/15/23 [Rx] QUEtiapine [SEROquel] 100 mg PO HS 30 Days #30 tablet 11/15/23 [Rx] Sertraline [Zoloft] 100 mg PO HS 30 Days #30 tab 11/15/23 [Rx] carvediloL [Coreg] 6.25 mg PO BID 30 Days #60 tablet 11/15/23 [Rx] rOPINIRole HCL [Requip] 0.5 mg PO HS 30 Days #60 tablet 11/15/23 [Rx] Follow up Appointment(s)/Referral(s): None,Stated [Primary Care Provider] - 1 Week Discharge/Stand Alone Forms: AMY Blancas
[2025-04-29] MEDS: LORazepam 1 MG TAB PO PRN (16:21)
[2025-04-29 16:27] LABS: Chol/HDL Ratio 1.61 Ratio; LDL Cholesterol,Calculated 32.8 mg/dL (0.0-131.0)
[2025-04-29] MEDS ORDERED: QUEtiapine 100 MG TAB PO SCH (21:00)
== END 2025-04-29 17:03 | disposition short-term general hospital (02) | DRG 882 ==
LOC: EC 21:48 → UNDOADMIN 04-29 03:28 → 3MHU 04-29 03:28
PROVIDERS: ADMIT Psychiatry & Neurology Psychiatry; ATTEND Psychiatry & Neurology Psychiatry
DX: F43.23 Adjustment disorder with mixed anxiety and depressed mood (principal); R45.851 Suicidal ideations; Z91.141 Patient's other noncompliance with medication regimen due to financial hardship; F10.239 Alcohol dependence with withdrawal, unspecified; F15.11 Other stimulant abuse, in remission; F31.9 Bipolar disorder, unspecified; I10 Essential (primary) hypertension; F11.11 Opioid abuse, in remission; F10.229 Alcohol dependence with intoxication, unspecified; G47.00 Insomnia, unspecified; F17.200 Nicotine dependence, unspecified, uncomplicated; G43.909 Migraine, unspecified, not intractable, without status migrainosus; Z86.14 Personal history of Methicillin resistant Staphylococcus aureus infection; F41.9 Anxiety disorder, unspecified; T50.996A Underdosing of other drugs, medicaments and biological substances, initial encounter; Z11.52 Encounter for screening for COVID-19; Z65.3 Problems related to other legal circumstances; Z79.899 Other long term (current) drug therapy; Z81.8 Family history of other mental and behavioral disorders; Z91.51 Personal history of suicidal behavior
CPT/HCPCS: 80053; 80061; 80306; 81003; 82075; 82248; 83036; 84443; 85025; 87636; 99285

== ENCOUNTER 2025-04-29 12:47 | Inpatient (IN) | payer OTHER ==
[2025-04-29] MEDS ORDERED: NALOXONE 0.4 MG/ML 1 ML VIAL IV PRN (15:20)
[2025-04-29] MEDS ORDERED: ACETAMINOPHEN TAB 325 MG TAB PO PRN (15:21)
[2025-04-29] MEDS ORDERED: LORazepam 1 MG TAB PO PRN ×2 (15:22)
[2025-04-29] MEDS ORDERED: lisinopriL 20 MG TAB PO STA (15:25)
--- NOTE | 2025-04-29 15:27 | P.HPIM ---
History of Present Illness H&P Date: 04/29/25 Patient is a 40-year-old male with history of hypertension, alcohol dependence, nicotine dependence, depression presenting with elevated blood pressure. He claims that he was picking up medication for his mother at pharmacy, decided to take his blood pressure there. His systolic was over 200, he was advised by the pharmacist to get medical help. He then decided to return all EMS that he wants to hurt himself in order to calm to this particular facility. He denies any chest pain, shortness of breath, abdominal pain, nausea, vomiting, urinary or bowel complaints. He denies any headaches or vision changes. He smokes 2 packs/day, has been drinking 3 pints of alcohol every day. Denies any alcohol or illicit drug use. On presentation, patient's temperature was 97.5, pulse 90, respiratory rate 18, blood pressure 190/140, saturating 100% on room air. WBC was 5.63, hemoglobin 14.5, platelet 160, sodium 134, creatinine 0.84, AST 137, ALT 132, ALP 162, TSH 2.09, urinalysis negative, urine toxicology negative, Cepheid 4 negative. Patient was given a dose of clonidine, lisinopril in the ED. He was subsequently transferred to mental health unit. Due to persistent hypotension, and possible alcohol withdrawal, patient being transferred to medical service. Sound physician accepted the patient. Pertinent positives and negatives as discussed in HPI, a complete review of systems was performed and all other systems are negative. Patient seen and examined at bedside. Vital signs reviewed General: nontoxic, no distress, appears at stated age Derm: warm, dry Head: atraumatic, normocephalic, symmetric Eyes: EOMI, no lid lag, anicteric sclera, pupils equal round reactive to light ENT: Nose and ears atraumatic Neck: No thyromegaly, supple Mouth: no lip lesion, mucus membranes moist Cardiovascular: S1S2 reg, no murmur, no edema Lungs: clear to auscultation bilateral, no rhonchi, no rales, no wheeze, no accessory muscle use Abdominal: soft, nontender to palpation, no guarding, no appreciable organomegaly Ext: no gross muscle atrophy, muscle strength muscle strength 5 out of 5 in all 4 extremities, no contractures Neuro: CN II-XII grossly intact Psych: Alert, oriented, appropriate affect Assessment/Plan: Active: Hypertensive urgency - Give additional 20 mg lisinopril, continue hydrochlorothiazide 25 mg daily, continue lisinopril 40 daily starting tomorrow - Continue to monitor - Possibly hypertension in the setting of alcohol withdrawal Alcohol dependence Alcohol withdrawal - Continue oral Ativan as needed per CIWA scores - Thiamine 100 mg daily - Folic acid 1 mg daily Nicotine dependence - Nicotine patch 14 mg daily Suicidal ideations Depression - Management per psychiatry - On Seroquel 100 nightly, Wellbutrin XL 150 daily - Suicide precaution The patient is admitted with an anticipated greater than 2 midnight stay as inpatient status for evaluation of alcohol withdrawal and hypertensive urgency. Surrogate decision-maker: Mother CODE STATUS: Full code DVT prophylaxis: Heparin Anticipated discharge date: Pending clinical course Anticipated discharge place: Pending clinical course A total of 55 minutes was spent on the care of this complex patient more than 50% of the time was spent in counseling and care coordination. Past Medical History Past Medical History: Hypertension Additional Past Medical History / Comment(s): Migraines, L lower extremity cellu litis/sepsis, pilonidal cysts/abscesses. History of Any Multi-Drug Resistant Organisms: MRSA Date of last positivie culture/infection: 07/26/21 MDRO Source:: Right Testicle Past Surgical History: Cholecystectomy, Orthopedic Surgery Additional Past Surgical History / Comment(s): I&D testicle, R tib/fib fracture repair with hardware. Past Anesthesia/Blood Transfusion Reactions: No Reported Reaction Past Psychological History: ADD/ADHD, Anxiety, Depression Smoking Status: Current every day smoker Past Alcohol Use History: Abuse, Daily, Heavy Additional Past Alcohol Use History / Comment(s): Pt started smoking in 1996 and is a ppd smoker, Pt smokes 1-2 ppd. Drinks 3 pints 6/7 days. Denies seizure history Past Drug Use History: Marijuana, Methamphetamine Additional Drug Use History / Comment(s): Pt states he no longer uses any drugs. Hasn't used meth in one month. Has drank prior to two days ago for almost a year. - Past Family History Mother Family Medical History: Cancer Additional Family Medical History / Comment(s): cervical cancer Father Family Medical History: Cancer Additional Family Medical History / Comment(s): Father in 1997 from lung and liver cancer Medications and Allergies Home Medications Medication Instructions Recorded Confirmed Type Acetaminophen Tab [Tylenol] 650 mg PO Q6HR PRN tab 11/15/23 12/18/23 Rx Lisinopril-Hctz 20-25 mg 1 tab PO DAILY 30 Days #30 tab 11/15/23 12/18/23 Rx [Zestoretic 20-25] Nicotine 21Mg/24Hr Patch [Habitrol] 1 patch TRANSDERM DAILY patch 11/15/23 12/18/23 Rx QUEtiapine [SEROquel] 100 mg PO HS 30 Days #30 tablet 11/15/23 12/18/23 Rx Sertraline [Zoloft] 100 mg PO HS 30 Days #30 tab 11/15/23 12/18/23 Rx carvediloL [Coreg] 6.25 mg PO BID 30 Days #60 tablet 11/15/23 12/18/23 Rx rOPINIRole HCL [Requip] 0.5 mg PO HS 30 Days #60 tablet 11/15/23 12/18/23 Rx Allergies Allergy/AdvReac Type Severity Reaction Status Date / Time No Known Allergies Allergy Verified 04/29/25 11:42
--- NOTE | 2025-04-29 17:50 | P.DS ---
Providers Date of admission: 04/29/25 17:20 Expected date of discharge: 04/29/25 Attending physician: Doc Cerda Consults: 04/29/25 15:21 Consult Physician Routine Consulting Provider: Tiffanie Shay Consult Reason/Comments: suicidal Do you want consulting provider notified?: Yes Primary care physician: Stated None Hospital Course: Patient left AMA. Earlier today, he had expressed on suicidal thoughts. He claimed that he said he wanted to hurt himself to EMS so he could get to the hospital on ambulance. He was also evaluated by Psych, with recommendations that he does not pose any immediate threat to himself or others. Plan - Discharge Summary New Discharge Prescriptions: No Action Nicotine 21Mg/24Hr Patch [Habitrol] 1 patch TRANSDERM DAILY patch Acetaminophen Tab [Tylenol] 650 mg PO Q6HR PRN tab PRN Reason: Mild Pain (Scale 1 To 3) QUEtiapine [SEROquel] 100 mg PO HS 30 Days #30 tablet Sertraline [Zoloft] 100 mg PO HS 30 Days #30 tab carvediloL [Coreg] 6.25 mg PO BID 30 Days #60 tablet rOPINIRole HCL [Requip] 0.5 mg PO HS 30 Days #60 tablet Lisinopril-Hctz 20-25 mg [Zestoretic 20-25] 1 tab PO DAILY 30 Days #30 tab Discharge Medication List Acetaminophen Tab [Tylenol] 650 mg PO Q6HR PRN tab 11/15/23 [Rx] Lisinopril-Hctz 20-25 mg [Zestoretic 20-25] 1 tab PO DAILY 30 Days #30 tab 11/15/23 [Rx] Nicotine 21Mg/24Hr Patch [Habitrol] 1 patch TRANSDERM DAILY patch 11/15/23 [Rx] QUEtiapine [SEROquel] 100 mg PO HS 30 Days #30 tablet 11/15/23 [Rx] Sertraline [Zoloft] 100 mg PO HS 30 Days #30 tab 11/15/23 [Rx] carvediloL [Coreg] 6.25 mg PO BID 30 Days #60 tablet 11/15/23 [Rx] rOPINIRole HCL [Requip] 0.5 mg PO HS 30 Days #60 tablet 11/15/23 [Rx] Discharge Disposition: LEFT AGAINST MEDICAL ADVICE
[2025-04-29 19:25] VITALS: BP 198/132; PULSE 88; RESP 16; TEMP 98.1
[2025-04-29] MEDS ORDERED: QUEtiapine 100 MG TAB PO SCH (21:00)
[2025-04-30] MEDS ORDERED: buPROPion XL 150 MG TAB.ER.24H PO SCH (09:00)
[2025-04-30] MEDS ORDERED: FOLIC ACID 1 MG TAB PO SCH (09:00)
[2025-04-30] MEDS ORDERED: THIAMINE 100 MG TAB PO SCH (09:00)
[2025-04-30] MEDS ORDERED: NICOTINE 14MG/24HR PATCH TRANSDERM SCH (09:00)
[2025-04-30] MEDS ORDERED: lisinopriL 20 MG TAB PO SCH (09:00)
[2025-04-30] MEDS ORDERED: hydroCHLOROthiazide 25 MG TAB PO SCH (09:00)
== END 2025-04-29 17:25 | disposition left against medical advice (07) | DRG 894 ==
LOC: 3SCARD 17:20
PROVIDERS: ADMIT Student in an Organized Health Care Education/Training Program; ATTEND Student in an Organized Health Care Education/Training Program
DX: F10.239 Alcohol dependence with withdrawal, unspecified (principal); I16.0 Hypertensive urgency; F32.A Depression, unspecified; Z53.29 Procedure and treatment not carried out because of patient's decision for other reasons; R45.851 Suicidal ideations; I10 Essential (primary) hypertension; F17.210 Nicotine dependence, cigarettes, uncomplicated; F41.9 Anxiety disorder, unspecified; F90.9 Attention-deficit hyperactivity disorder, unspecified type; Z79.899 Other long term (current) drug therapy; I95.9 Hypotension, unspecified; Z71.42 Counseling for family member of alcoholic

== ENCOUNTER 2025-05-04 00:10 | Inpatient (IN) | payer OTHER ==
[2025-05-04] MEDS ORDERED: LORazepam 1 MG/0.5 ML VIAL IV PRN ×2 (01:23)
[2025-05-04] MEDS: ASPIRIN 81 MG PO STA (02:05)
[2025-05-04] MEDS: SODIUM CHLORIDE 0.9% 500 ML 500 ML IV STA (02:07)
[2025-05-04] MEDS: LABETALOL 5 MG/ML VIAL MDV IVP STA (02:07)
[2025-05-04] MEDS: LORazepam 1 MG/0.5 ML VIAL IV PRN (02:18)
[2025-05-04 02:36] LABS: Basophils # (A) 0.03 10*3/uL (0.00-0.10); Basophils % (A) 0.4 %; Eosinophils # (A) 0.09 10*3/uL (0.04-0.35); Eosinophils % (A) 1.3 %; HCT 42.6 % (39.6-50.0); HGB 15.4 g/dL (13.0-17.0); Lymphocytes # (A) 1.74 10*3/uL (0.90-5.00); Lymphocytes % (A) 24.6 %; MCH 33.2 pg (27.0-32.0); MCHC 36.2 g/dL (32.0-37.0); MCV 91.8 fL (80.0-97.0); Mean Platelet Volume 10.8 fL (9.5-12.2); Monocytes # (A) 0.65 10*3/uL (0.20-1.00); Monocytes % (A) 9.2 %; Neutrophils # (A) 4.55 10*3/uL (1.80-7.70); Neutrophils % (A) 64.4 %; Platelet Count 183 10*3/uL (140-440); RBC 4.64 10*6/uL (4.40-5.60); RDW 13.5 % (11.5-14.5); WBC 7.07 10*3/uL (4.50-10.00)
[2025-05-04 02:54] LABS: ALT 215 U/L (4-49); AST 283 U/L (17-59); African American GFR (CKD) >90 (>60 ml/min/1.73 sqM); Albumin 4.1 g/dL (3.5-5.0); Alkaline Phosphatase 123 U/L (38-126); Anion Gap 14 mmol/L; Blood Urea Nitrogen 14 mg/dL (9-20); Carbon Dioxide 18 mmol/L (22-30); Chloride 109 mmol/L (98-107); Glucose 98 mg/dL (74-99); Magnesium 1.7 mg/dL (1.6-2.3); Non-African American GFR(CKD) >90 (>60 ml/min/1.73 sqM); Potassium 3.9 mmol/L (3.5-5.1); Sodium 141 mmol/L (137-145); Total Bilirubin 0.5 mg/dL (0.2-1.3); Total Protein 7.3 g/dL (6.3-8.2)
[2025-05-04 02:58] LABS: Partial Thromboplastin Time 23.2 sec (22.0-30.0); Prothrombin Time 10.9 sec (10.0-12.5)
[2025-05-04 02:59] LABS: Alcohol 136 mg/dL
[2025-05-04] MEDS: NITROGLYCERIN SL TABS 0.4 MG TAB SUBLINGUAL PRN (03:13)
[2025-05-04] MEDS ORDERED: HEPARIN SODIUM 1,000 UN/ML (10ML VL) IV PRN (03:18)
[2025-05-04] MEDS ORDERED: NALOXONE 0.4 MG/ML 1 ML VIAL IV PRN (03:21)
--- NOTE | 2025-05-04 03:24 | ED ---
Alcohol HPI - General Chief Complaint: Alcohol Stated Complaint: Chest pain Time Seen by Provider: 05/04/25 00:36 Source: patient, EMS Mode of arrival: EMS - History of Present Illness Initial Comments: 40-year-old male presenting with concerns for chest pain and alcohol withdrawal. Patient reports that he is a daily drinker and normally drinks 3 pints per day. His last drink was around 3:00 this afternoon. States that he woke up today and was starting to have shakes. He states that he wants to stop drinking in order to take care of his mom with cancer. Patient does admit to chest pain with some radiation to the arm. He denies shortness of breath. Admits to nausea with no vomiting. Admits to headache. Denies abdominal pain. He does admit to some tremoring and anxiety as well. Patient is supposed to be taking antihypertensives but does not take them as prescribed. He was admitted recently and left AMA, he cites that he had to take care of his mother. - Related Data Home Medications Medication Instructions Recorded Confirmed No Known Home Medications 05/04/25 05/04/25 Allergies Allergy/AdvReac Type Severity Reaction Status Date / Time No Known Allergies Allergy Verified 05/04/25 07:47 Review of Systems ROS Statement: Those systems with pertinent positive or pertinent negative responses have been documented in the HPI. ROS Other: All systems not noted in ROS Statement are negative. Past Medical History Past Medical History: Hypertension Additional Past Medical History / Comment(s): Migraines, L lower extremity cellulitis/sepsis, pilonidal cysts/abscesses. History of Any Multi-Drug Resistant Organisms: MRSA Date of last positivie culture/infection: 07/26/21 MDRO Source:: Right Testicle Past Surgical History: Cholecystectomy, Orthopedic Surgery Additional Past Surgical History / Comment(s): I&D testicle, R tib/fib fracture repair with hardware. Past Anesthesia/Blood Transfusion Reactions: No Reported Reaction Past Psychological History: ADD/ADHD, Anxiety, Depression Smoking Status: Current every day smoker Past Alcohol Use History: Abuse, Daily, Heavy Past Drug Use History: Marijuana, Methamphetamine - Past Family History Mother Family Medical History: Cancer Additional Family Medical History / Comment(s): cervical cancer Father Family Medical History: Cancer Additional Family Medical History / Comment(s): Father in 1997 from lung and liver cancer General Exam General appearance: alert, in no apparent distress Head exam: Present: atraumatic, normocephalic, normal inspection Eye exam: Present: normal appearance, EOMI Neck exam: Present: normal inspection. Absent: meningismus Respiratory exam: Present: normal lung sounds bilaterally. Absent: respiratory distress, wheezes, rales, rhonchi, stridor Cardiovascular Exam: Present: regular rate, normal rhythm, normal heart sounds. Absent: systolic murmur, diastolic murmur, rubs, gallop, clicks Neurological exam: Present: alert, oriented X3 Psychiatric exam: Present: normal affect, normal mood Skin exam: Present: warm, dry, normal color Course Vital Signs 05/04/25 05/04/25 05/04/25 00:11 02:22 03:02 Temperature 98.9 F Pulse Rate 100 86 93 Pulse Rate [ Resourcing Advisor ] Respiratory 20 18 17 Rate Blood Pressure 219/138 188/112 188/112 Blood Pressure [Right Arm] O2 Sat by Pulse 96 97 97 Oximetry 05/04/25 05/04/25 05/04/25 03:13 03:43 04:19 Temperature Pulse Rate 90 90 82 Pulse Rate [ Resourcing Advisor ] Respiratory 19 19 16 Rate Blood Pressure 179/104 160/82 146/82 Blood Pressure [Right Arm] O2 Sat by Pulse 98 99 97 Oximetry 05/04/25 05/04/25 05/04/25 06:09 07:13 08:00 Temperature 97.8 F Pulse Rate 82 82 Pulse Rate [ 70 Resourcing Advisor ] Respiratory 16 18 18 Rate Blood Pressure 139/77 139/77 Blood Pressure 156/85 [Right Arm] O2 Sat by Pulse 98 97 99 Oximetry 05/04/25 12:00 Temperature 97.6 F Pulse Rate Pulse Rate [ 73 Resourcing Advisor ] Respiratory 16 Rate Blood Pressure Blood Pressure 148/83 [Right Arm] O2 Sat by Pulse 99 Oximetry Medical Decision Making - Medical Decision Making Was pt. sent in by a medical professional or institution (, PA, HOSPITAL CARRIER, urgent care, hospital, or senior living...) When possible be specific @ -No Did you speak to anyone other than the patient for history (EMS, parent, family, police, friend...)? What history was obtained from this source @ -No Did you review nursing and triage notes (agree or disagree)? Why? @ -I reviewed and agree with nursing and triage notes Were old charts reviewed (outside hosp., previous admission, EMS record, old EKG, old radiological studies, urgent care reports/EKG's, senior living records)? Report findings @ -No old charts were reviewed Differential Diagnosis (chest pain, altered mental status, abdominal pain women, abdominal pain men, vaginal bleeding, weakness, fever, dyspnea, syncope, headache, dizziness, GI bleed, back pain, seizure, CVA, palpatations, mental health, musculoskeletal)? @ -MDM Differential Chest Pain: Stable Angina, Unstable Angina, STEMI, NSTEMI Aortic Dissection, Pneumothorax, Musculoskeletal, Esophageal Spasm GERD, Cholecystitis, Pancreatitis, Zosterâ€¦ This is not meant to be an all-inclusive list. EKG interpreted by me (3pts min.). @ -EKG shows sinus tachycardia ventricular rate 105. GA interval 145. QRS 96. QT 341. QTc 402 X-rays interpreted by me (1pt min.). @ -Chest x-ray shows no acute process CT interpreted by me (1pt min.). @ -None done U/S interpreted by me (1pt. min.). @ -None done What testing was considered but not performed or refused? (CT, X-rays, U/S, labs)? Why? @ -None What meds were considered but not given or refused? Why? @ -None Did you discuss the management of the patient with other professionals (professionals i.e. , PA, HOSPITAL CARRIER, lab, RT, psych nurse, addiction social worker, rejected items clerk, teacher, combat information center officer, senior case manager)? Give summary @ -My attending spoke with the [facility] provider on-call who accepted admission Was smoking cessation discussed for >3mins.? @ -No Was critical care preformed (if so, how long)? @ -No Were there social determinants of health that impacted care today? How? (Homelessness, low income, unemployed, alcoholism, drug addiction, transportation, low edu. Level, literacy, decrease access to med. care, custodial, rehab)? @ -No Was there de-escalation of care discussed even if they declined (Discuss DNR or withdrawal of care, Hospice)? DNR status @ -No What co-morbidities impacted this encounter? (DM, HTN, Smoking, COPD, CAD, Cancer, CVA, ARF, Chemo, Hep., AIDS, mental health diagnosis, sleep apnea, morbid obesity)? @ -Hypertension, smoking, alcoholism Was patient admitted / discharged? Hospital course, mention meds given and route, prescriptions, significant lab abnormalities, going to OR and other pertinent info. @ -40-year-old male presenting with chief complaint of chest pain and alcohol withdrawal. He is a daily drinker normally drinks 3 pints per day last drink was at 3:00 this afternoon. History and physical examination are conducted. In itial blood pressures 219/138. Patient is given labetalol 20 mg, he is given Ativan for alcohol withdrawal, and he is given a dose of nitro. Troponin is 0.056. Patient was given aspirin earlier in his visit and he was later started on heparin. Transaminitis is noted secondary to his alcoholism. Serum alcohol 136. He is maintained on CIWA protocol. His blood pressure has come down to 160/82. He is currently resting showing no acute signs of distress. He will be admitted for NSTEMI and alcohol withdrawal. Patient is agreeable with this plan. I discussed this case with my attending Dr. Zapata Undiagnosed new problem with uncertain prognosis? @ -No Drug Therapy requiring intensive monitoring for toxicity (Heparin, Nitro, Insulin, Cardizem)? @ -Heparin Were any procedures done? @ -No Diagnosis/symptom? @ -NSTEMI, alcohol withdrawal Acute, or Chronic, or Acute on Chronic? @ -Acute Uncomplicated (without systemic symptoms) or Complicated (systemic symptoms)? @ -Complicated Side effects of treatment? @ -No Exacerbation, Progression, or Severe Exacerbation? @ -No Poses a threat to life or bodily function? How? (Chest pain, USA, CO, pneumonia, PE, COPD, DKA, ARF, appy, cholecystitis, CVA, Diverticulitis, Homicidal, Suicidal, threat to staff... and all critical care pts) @ -Yes - Lab Data Result diagrams: 05/04/25 02:01 05/04/25 02:01 Lab Results 05/04/25 05/04/25 05/04/25 Range/Units 02:01 02:01 02:01 WBC 7.07 (4.50-10.00) 10*3/uL RBC 4.64 (4.40-5.60) 10*6/uL Hgb 15.4 (13.0-17.0) g/dL Hct 42.6 (39.6-50.0) % MCV 91.8 (80.0-97.0) fL MCH 33.2 H (27.0-32.0) pg MCHC 36.2 (32.0-37.0) g/dL Plt Count 183 (140-440) 10*3/uL MPV 10.8 (9.5-12.2) fL Immature Gran % (Auto) 0.1 % Neutrophils % 64.4 % Lymphocytes % 24.6 % Monocytes % 9.2 % Eosinophils % 1.3 % Basophils % 0.4 % Immature Gran # 0.01 (0.00-0.04) 10*3/uL Neutrophils # 4.55 (1.80-7.70) 10*3/uL Lymphocytes # 1.74 (0.90-5.00) 10*3/uL Monocytes # 0.65 (0.20-1.00) 10*3/uL Eosinophils # 0.09 (0.04-0.35) 10*3/uL Basophils # 0.03 (0.00-0.10) 10*3/uL PT 10.9 (10.0-12.5) sec INR 1.0 (<1.2) APTT 23.2 (22.0-30.0) sec Sodium 141 (137-145) mmol/L Potassium 3.9 (3.5-5.1) mmol/L Chloride 109 H (98-107) mmol/L Carbon Dioxide 18 L (22-30) mmol/L Anion Gap 14 mmol/L BUN 14 (9-20) mg/dL Creatinine 0.87 (0.66-1.25) mg/dL Est GFR (CKD-EPI)AfAm >90 (>60 ml/min/1.73 sqM) Est GFR (CKD-EPI)NonAf >90 (>60 ml/min/1.73 sqM) Glucose 98 (74-99) mg/dL Calcium 9.0 (8.4-10.2) mg/dL Magnesium 1.7 (1.6-2.3) mg/dL Total Bilirubin 0.5 (0.2-1.3) mg/dL AST 283 H (17-59) U/L ALT 215 H (4-49) U/L Alkaline Phosphatase 123 (38-126) U/L Troponin I (0.000-0.034) ng/mL Total Protein 7.3 (6.3-8.2) g/dL Albumin 4.1 (3.5-5.0) g/dL Serum Alcohol 136 mg/dL 05/04/25 Range/Units 02:01 WBC (4.50-10.00) 10*3/uL RBC (4.40-5.60) 10*6/uL Hgb (13.0-17.0) g/dL Hct (39.6-50.0) % MCV (80.0-97.0) fL MCH (27.0-32.0) pg MCHC (32.0-37.0) g/dL Plt Count (140-440) 10*3/uL MPV (9.5-12.2) fL Immature Gran % (Auto) % Neutrophils % % Lymphocytes % % Monocytes % % Eosinophils % % Basophils % % Immature Gran # (0.00-0.04) 10*3/uL Neutrophils # (1.80-7.70) 10*3/uL Lymphocytes # (0.90-5.00) 10*3/uL Monocytes # (0.20-1.00) 10*3/uL Eosinophils # (0.04-0.35) 10*3/uL Basophils # (0.00-0.10) 10*3/uL PT (10.0-12.5) sec INR (<1.2) APTT (22.0-30.0) sec Sodium (137-145) mmol/L Potassium (3.5-5.1) mmol/L Chloride (98-107) mmol/L Carbon Dioxide (22-30) mmol/L Anion Gap mmol/L BUN (9-20) mg/dL Creatinine (0.66-1.25) mg/dL Est GFR (CKD-EPI)AfAm (>60 ml/min/1.73 sqM) Est GFR (CKD-EPI)NonAf (>60 ml/min/1.73 sqM) Glucose (74-99) mg/dL Calcium (8.4-10.2) mg/dL Magnesium (1.6-2.3) mg/dL Total Bilirubin (0.2-1.3) mg/dL AST (17-59) U/L ALT (4-49) U/L Alkaline Phosphatase (38-126) U/L Troponin I 0.056 H* (0.000-0.034) ng/mL Total Protein (6.3-8.2) g/dL Albumin (3.5-5.0) g/dL Serum Alcohol mg/dL Disposition Clinical Impression: Alcohol withdrawal syndrome, NSTEMI (non-ST elevated myocardial infarction) Disposition: LEFT AGAINST MEDICAL ADVICE Condition: Undetermined Time of Disposition: 03:24
[2025-05-04] MEDS: HEPARIN SODIUM 1,000 UN/ML (10ML VL) IV ONE (04:09)
[2025-05-04] MEDS: HEPARIN SOD,PORK IN 0.45% NACL 25,000 UNIT in 0.45% NACL 1 250ML.BAG IV SCH (04:16)
[2025-05-04] MEDS: SODIUM CHLORIDE 0.9% 1,000 ML IV SCH (04:19)
--- NOTE | 2025-05-04 05:15 | XR ---
EXAM: XR Chest, 2 Views CLINICAL HISTORY: ITS.REASON XR Reason: Chest Pain TECHNIQUE: Frontal and lateral views of the chest. COMPARISON: No relevant prior studies available. FINDINGS: Lungs: No consolidation or mass. Pleural space: No effusion. Heart: No cardiomegaly. Bones/joints: No acute findings. IMPRESSION: No acute cardiopulmonary process.
[2025-05-04] MEDS: carvediloL 6.25 MG TAB PO SCH (07:14)
[2025-05-04] MEDS: ISOSORBIDE MONONITRATE ER 30 MG TAB.ER.24H PO SCH (08:58)
[2025-05-04] MEDS: NICOTINE 21MG/24HR PATCH TRANSDERM SCH (08:58)
[2025-05-04] MEDS: LISINOPRIL-HCTZ 20-25 MG 1 EACH TAB PO SCH (09:53)
[2025-05-04] MEDS: THIAMINE 100 MG TAB PO SCH (11:46)
[2025-05-04] MEDS ORDERED: ACETAMINOPHEN TAB 325 MG TAB PO PRN (11:59)
--- NOTE | 2025-05-04 12:11 | P.CRDCN ---
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 He has a past medical history of alcohol abuse, tobacco use and dependence, hypertension. Patient gives history that he was here and admitted on 04/29 and left AMA. Patient states he came into the hospital at that time due to high blood pressure. He signed himself out AMA and did not have any blood pressure medications to take at home. He came in for chest pain, elevated blood pressure and also he wanted to quit drinking alcohol. He drinks alcohol on a regular basis. He denies any drug use. He denies shortness of breath, no abdominal pain no nausea or vomiting. He does complain of sweating profusely. He is a smoker of 2 packs/day. He drinks 3 pints of alcohol per day. On this hospitalization, his blood pressure was 219/138 on arrival. He was started on the CIWA protocol, lisinopril hydrochlorothiazide, Coreg and heparin drip. Blood pressure is 139/77 at the time of this evaluation with heart rate 82, pulse ox 97% on room air. Patient is seen today in the emergency center waiting for a bed on the cardiac stepdown unit. -EKG: Sinus tachycardia 105 bpm, nonspecific ST changes in the lateral leads. -Chest x-ray: No acute process. -Laboratory studies: CBC unremarkable. Troponin 0.056, 0.073, 0.069. CO2 18, creatinine 0.87, potassium 3.9, magnesium 1.7. AST 283, ALT 215. Serum alcohol 136. -Home cardiac medications: None -Echocardi[facility] at [facility] 11[facility]06[facility]20[facility]: EF 55 to 60%, severe left ventricular hypertrophy, mild tricuspid regurgitation. Review Of Systems: At the time of my exam: CONSTITUTIONAL: Denies fever or chills. HEENT: Denies blurred vision, vision changes, or eye pain. Denies hemoptysis CARDIOVASCULAR: Denies chest pain. Denies orthopnea. Denies PND. Denies palpitations RESPIRATORY: Denies shortness of breath. GASTROINTESTINAL: Denies abdominal pain. Denies nausea or vomiting. HEMATOLOGIC: Denies bleeding disorders. GENITOURINARY: Denies any blood in urine. SKIN: Denies puritis. Denies rash. Physical examination: Gen: This is a 40-year-old male in no acute distress VS: reviewed HEENT: Head is atraumatic, normocephalic. Pupils equal, round. Sclerae is anicteric. NECK: Supple. No JVD. LUNGS: Clear to auscultation. No wheezes or rhonchi. No intercostal retractions. HEART: Regular rate and rhythm. No murmur. ABDOMEN: Soft No tenderness. EXTREMITIES: No pedal edema. No calf tenderness. NEUROLOGICAL: Patient is awake, alert and oriented x3. Assessment: Elevated troponins in a flat pattern not indicative of acute coronary syndrome. Elevated troponins most likely due to severe hypertension Hypertensive urgency Alcohol intoxication on [facility] protocol Tobacco use and dependence Plan: Continue current cardiac medications: Coreg 6.25 mg twice daily, lisinopril hydrochlorothiazide 2024 1 daily Start patient on Imdur 30 mg daily Discontinue heparin drip Obtain 2-D echocardiogram and Doppler study to assess cardiac structure and function Schedule patient for stress test on Sunday Hold beta-jaime Sunday night and Sunday N.p.o. after midnight Alcohol cessation Tobacco cessation: Patient will be provided the [facility] quit line information at discharge Further recommendations to follow based upon clinical course Thank you kindly for this consultation. Nurse practitioner note has been reviewed, I agree with documented findings and plan of care. Patient was seen and examined. Past Medical History Past Medical History: Hypertension Additional Past Medical History / Comment(s): Migraines, L lower extremity cellulitis/sepsis, pilonidal cysts/abscesses. History of Any Multi-Drug Resistant Organisms: MRSA Date of last positivie culture/infection: 07/26/21 MDRO Source:: Right Testicle Past Surgical History: Cholecystectomy, Orthopedic Surgery Additional Past Surgical History / Comment(s): I&D testicle, R tib/fib fracture repair with hardware. Past Anesthesia/Blood Transfusion Reactions: No Reported Reaction Past Psychological History: ADD/ADHD, Anxiety, Depression Smoking Status: Current every day smoker Past Alcohol Use History: Abuse, Daily, Heavy Past Drug Use History: Marijuana, Methamphetamine - Past Family History Mother Family Medical History: Cancer Additional Family Medical History / Comment(s): cervical cancer Father Family Medical History: Cancer Additional Family Medical History / Comment(s): Father in 1997 from lung and liver cancer Medications and Allergies Home Medications Medication Instructions Recorded Confirmed Type No Known Home Medications 05/04/25 05/04/25 History Allergies Allergy/AdvReac Type Severity Reaction Status Date / Time No Known Allergies Allergy Verified 05/04/25 07:47 Physical Exam Vitals: Vital Signs Temp Pulse Resp BP Pulse Ox 05/04/25 07:13 82 18 139/77 97 05/04/25 06:09 82 16 139/77 98 05/04/25 04:19 82 16 146/82 97 05/04/25 03:43 90 19 160/82 99 05/04/25 03:13 90 19 179/104 98 05/04/25 03:02 93 17 188/112 97 05/04/25 02:22 86 18 188/112 97 05/04/25 00:11 98.9 F 100 20 219/138 96 Intake and Output 05/03/25 05/04/25 05/04/25 22:59 06:59 14:59 Other: Weight 89.358 kg Results 05/04/25 02:01 05/04/25 02:01 Cardiac Enzymes 05/04/25 05/04/25 Range/Units 02:01 02:01 AST 283 H (17-59) U/L Troponin I 0.056 H* (0.000-0.034) ng/mL Coagulation 05/04/25 Range/Units 02:01 PT 10.9 (10.0-12.5) sec APTT 23.2 (22.0-30.0) sec CBC 05/04/25 Range/Units 02:01 WBC 7.07 (4.50-10.00) 10*3/uL RBC 4.64 (4.40-5.60) 10*6/uL Hgb 15.4 (13.0-17.0) g/dL Hct 42.6 (39.6-50.0) % Plt Count 183 (140-440) 10*3/uL Comprehensive Metabolic Panel 05/04/25 Range/Units 02:01 Sodium 141 (137-145) mmol/L Potassium 3.9 (3.5-5.1) mmol/L Chloride 109 H (98-107) mmol/L Carbon Dioxide 18 L (22-30) mmol/L BUN 14 (9-20) mg/dL Creatinine 0.87 (0.66-1.25) mg/dL Glucose 98 (74-99) mg/dL Calcium 9.0 (8.4-10.2) mg/dL AST 283 H (17-59) U/L ALT 215 H (4-49) U/L Alkaline Phosphatase 123 (38-126) U/L Total Protein 7.3 (6.3-8.2) g/dL Albumin 4.1 (3.5-5.0) g/dL Current Medications Generic Name Dose Route Start Last Admin Trade Name Freq PRN Reason Stop Dose Admin Carvedilol 6.25 mg 05/04/25 07:30 05/04/25 07:14 Carvedilol 6.25 Mg Tab PO Not Given BID-W/MEALS GIDEON Lisinopril/HCTZ 1 each 05/04/25 09:00 Lisinopril-Hctz 20-25 Mg 1 Each Tab PO DAILY GIDEON Heparin Sodium (Porcine) 0 unit 05/04/25 03:18 Heparin Sodium 1,000 Un/Ml (10ml Vl) IV PER PROTOCOL PRN Low PTT Protocol Heparin Sodium/Sodium Chloride 250 mls @ 10 mls/hr 05/04/25 03:30 05/04/25 0 4:16 25,000 unit/ Sodium Chloride IV 11.1909 units/kg/hr .Q24H GIDEON 10 mls/hr Administration Protocol 11.1909 UNITS/KG/HR Sodium Chloride 1,000 mls @ 75 mls/hr 05/04/25 03:30 05/04/25 04:19 Saline 0.9% IV 75 mls/hr .[id number] GIDEON Administration Lorazepam 1 mg 05/04/25 01:23 Lorazepam 1 Mg/0.5 Ml Vial IV Q1HR PRN CIWA 10 to 15 Lorazepam 1 mg 05/04/25 01:23 05/04/25 05:19 Lorazepam 1 Mg/0.5 Ml Vial IV 1 mg Q2HR PRN Administration CIWA 8 or 9 Lorazepam 2 mg 05/04/25 01:23 Lorazepam 1 Mg/0.5 Ml Vial IV 05/06/25 01:23 Q10M PRN CIWA 16 or higher Naloxone HCl 0.2 mg 05/04/25 03:21 Naloxone 0.4 Mg/Ml 1 Ml Vial IV Q2M PRN Opioid Reversal Nicotine 1 patch 05/04/25 09:00 Nicotine 21mg/24hr Patch TRANSDERM DAILY GIDEON Nitroglycerin 0.4 mg 05/04/25 03:06 05/04/25 03:13 Nitroglycerin Sl Tabs 0.4 Mg Tab SUBLINGUAL 0.4 mg Q5M PRN Administration Chest Pain Intake and Output 05/03/25 05/04/25 05/04/25 22:59 06:59 14:59 Other: Weight 89.358 kg 05/04/25 02:01 05/04/25 02:01
[2025-05-04 13:42] VITALS: BP 148/83; PULSE 73; RESP 16; TEMP 97.6
--- NOTE | 2025-05-04 15:40 | P.HPIM ---
History of Present Illness H&P Date: 05/04/25 Patient is a 40-year-old male with hypertension, migraine, anxiety, depression, ADD, history of MRSA (right testicle), daily heavy alcohol intake (no history of DTs or withdrawals) current daily smoker here for evaluation of chest pain and alcohol withdrawal. Patient reported that his last drink was around 3 PM on 05/03. He woke up with tremors and associated nausea and vomiting. He also reported chest tightness with radiation to the arm with associated dizziness. He denied abdominal pain, shortness of breath, palpitations, focal weakness, speech changes, vision changes. Noted increased stress in home life as he take care of his mom who is dying from cancer. On admission: Vitals: Temp 98.9 F, OH 100, RR 20, BP 219/138, O2 saturation 96% on room air Labs: WBC 7.07, hemoglobin 10.4, platelet count 1 93,000, sodium 141, potassium 3.9, bicarb 18, BUN 14, creatinine 0.87, mag 1.7, AST 283, ALT 215, alk phos 123. Initial troponin 0.056. Second troponin 0.073. Serum alcohol 136. Imaging: EKG independently interpreted showed sinus tachycardia with a rate of 105, left axis deviation, no ST-T changes, inverted T waves noted in V5 and V6 and aVL. QTc 402 MS. Chest x-ray showed no acute cardiopulmonary process ED documentation reviewed. Review of systems: Pertinent positives and negatives as discussed in HPI, a complete review of systems was performed and all other systems are negative. Social history: Tobacco: Current smoker. 2ppd for 13 years. Alcohol: Daily heavy intake. 3 pints peppermint schnapps daily for about 6 months. Intends to quit. Recreational drugs: History of faith for 10 years. meth for 5 years. quit about 2 years ago. Travel: no history of prolonged travel Physical examination: Vital signs reviewed General: non toxic, no distress, appears at stated age, room air Derm: no unusual rashes/lesions, warm, diaphoretic Head: atraumatic, normocephalic, symmetric Eyes: EOMI, anicteric sclera, pupils equal round reactive to light ENT: Nose and ears atraumatic Neck: No cervical lymphadenopathy, trachea midline, supple Mouth: no lip lesion, mucus membranes moist Cardiovascular: S1S2 reg, no murmur Lungs: CTA bilateral, no rhonchi, no rales, no accessory muscle use Abdominal: soft, nondistended, nontender to palpation, no guarding Ext: muscle strength 5 out of 5 in all 4 extremities grossly, no gross muscle atrophy, no contractures, positive dorsalis pedis pulse bilateral, no edema Neuro: CN II-XI grossly intact, no gross focal neuro deficits, tremors of upper extremity Psych: Alert and oriented x 3, appropriate affect and mood Assessment/Plan: The patient is admitted with an anticipated greater than 2 midnight stay for evaluation of alcohol intoxication with impending withdrawal and NSTEMI Active: #. Alcohol intoxication with impending withdrawal #. Elevated liver transaminases secondary to above #. Anion gap metabolic acidosis secondary to above Ativan per [facility] protocol IV fluids 0.9 normal saline 75 cc/h Initiate thiamine 100 mg p.o. daily #. NSTEMI -EKG independently interpreted showed sinus tachycardia with a rate of 105, left axis deviation, no ST-T changes, inverted T waves noted in V5 and V6 and aVL. QTc 402 MS -Cardiac monitoring -Supplemental oxygen as needed -Heart healthy diet -Trend troponin. Initial troponin 0.056. Second troponin 0.073. -EKG as needed -Given aspirin 325 mg once in the ED -Continue with aspirin 81 mg daily -Cardiology consulted #. Hypertensive urgency, improving BP 219/138 on admission. Now at 139/77 Continue to monitor BP Currently on Coreg and lisinopril-hydrochlorothiazide p.o. Chronic Conditions: #. Hypertension #. Migraine #. Anxiety #. Depression #. ADD No home medications as of this time DVT ppx: Heparin drip CODE STATUS: Full Discussed with: Patient Anticipated discharge place: Home Ирина Todd MD PGY-1 Internal Medicine Dictation was produced using [employer] dictation software. please excuse any grammatical, word or spelling errors. Attestation: I have seen and examined this patient with my resident, assessment and plan discussed with the resident, agree with assessment and plan as written above. Dr. Caceres Past Medical History Past Medical History: Hypertension Additional Past Medical History / Comment(s): Migraines, L lower extremity cellulitis/sepsis, pilonidal cysts/abscesses. History of Any Multi-Drug Resistant Organisms: MRSA Date of last positivie culture/infection: 07/26/21 MDRO Source:: Right Testicle Past Surgical History: Cholecystectomy, Orthopedic Surgery Additional Past Surgical History / Comment(s): I&D testicle, R tib/fib fracture repair with hardware. Past Anesthesia/Blood Transfusion Reactions: No Reported Reaction Past Psychological History: ADD/ADHD, Anxiety, Depression Smoking Status: Current every day smoker Past Alcohol Use History: Abuse, Daily, Heavy Past Drug Use History: Marijuana, Methamphetamine - Past Family History Mother Family Medical History: Cancer Additional Family Medical History / Comment(s): cervical cancer Father Family Medical History: Cancer Additional Family Medical History / Comment(s): Father in 1997 from lung and liver cancer Medications and Allergies Home Medications Medication Instructions Recorded Confirmed Type No Known Home Medications 05/04/25 05/04/25 History Allergies Allergy/AdvReac Type Severity Reaction Status Date / Time No Known Allergies Allergy Verified 05/04/25 07:47 Physical Exam Vitals: Vital Signs Temp Pulse Resp BP Pulse Ox 05/04/25 07:13 82 18 139/77 97 05/04/25 06:09 82 16 139/77 98 05/04/25 04:19 82 16 146/82 97 05/04/25 03:43 90 19 160/82 99 05/04/25 03:13 90 19 179/104 98 05/04/25 03:02 93 17 188/112 97 05/04/25 02:22 86 18 188/112 97 05/04/25 00:11 98.9 F 100 20 219/138 96 Intake and Output 05/03/25 05/04/25 05/04/25 22:59 06:59 14:59 Other: Weight 89.358 kg Results CBC & Chem 7: 05/04/25 02:01 05/04/25 02:01 Labs: Abnormal Lab Results - Last 24 Hours (Table) 05/04/25 05/04/25 05/04/25 Range/Units 02:01 02:01 02:01 MCH 33.2 H (27.0-32.0) pg Chloride 109 H (98-107) mmol/L Carbon Dioxide 18 L (22-30) mmol/L AST 283 H (17-59) U/L ALT 215 H (4-49) U/L Troponin I 0.056 H* (0.000-0.034) ng/mL
[2025-05-04] MEDS ORDERED: chlordiazePOXIDE 25 MG CAP PO SCH (16:00)
--- NOTE | 2025-05-04 17:37 | P.DS ---
Providers Date of admission: 05/04/25 03:22 Attending physician: Sai Mancera Consults: 05/04/25 04:58 Consult Physician Routine Consulting Provider: Fabián Palomo Consult Reason/Comments: Elevated troponin Do you want consulting provider notified?: Yes, Notify in am Primary care physician: Stated None Hospital Course: Hospital Course: Patient is a 40-year-old male with hypertension, migraine, anxiety, depression, ADD, history of MRSA (right testicle), daily heavy alcohol intake (no history of DTs or withdrawals) current daily smoker here for evaluation of chest pain and alcohol withdrawal. Patient reported that his last drink was around 3 PM on 05/03. He woke up with tremors and associated nausea and vomiting. He also reported chest tightness with radiation to the arm with associated dizziness. He denied abdominal pain, shortness of breath, palpitations, focal weakness, speech changes, vision changes. Noted increased stress in home life as he take care of his mom who is dying from cancer. On admission: Vitals: Temp 98.9 F, SD 100, RR 20, BP 219/138, O2 saturation 96% on room air Labs: WBC 7.07, hemoglobin 10.4, platelet count 1 93,000, sodium 141, potassium 3.9, bicarb 18, BUN 14, creatinine 0.87, mag 1.7, AST 283, ALT 215, alk phos 123. Initial troponin 0.056. Second troponin 0.073. Serum alcohol 136. Imaging: EKG independently interpreted showed sinus tachycardia with a rate of 105, left axis deviation, no ST-T changes, inverted T waves noted in V5 and V6 and aVL. QTc 402 MS. Chest x-ray showed no acute cardiopulmonary process Patient was admitted for the evaluation of alcohol intoxication with impending withdrawal and NSTEMI with hypertensive urgency. Patient was placed on IV heparin, Ativan per [facility] protocol, IV fluids, cardiac monitoring, supplemental oxygen and cardiology was consulted. Aspirin was initiated. Troponins were trended and peaked at 0.07 and then decreased to 0.06. Cardiology recommended to discontinue heparin drip and to obtain echocardiogram and stress test the following day however patient left AGAINST MEDICAL ADVICE today. Final Diagnosis: #. Alcohol intoxication with impending withdrawal #. Elevated liver transaminases secondary to above #. Anion gap metabolic acidosis secondary to above #. Unstable angina #. Hypertensive urgency, improving #. Migraine #. Anxiety #. Depression #. ADD #. Nicotine dependence #. Alcohol dependence Physical examination: Vital signs reviewed General: non toxic, no distress, appears at stated age, room air Derm: no unusual rashes/lesions, warm, diaphoretic Head: atraumatic, normocephalic, symmetric Eyes: EOMI, anicteric sclera, pupils equal round reactive to light ENT: Nose and ears atraumatic Neck: No cervical lymphadenopathy, trachea midline, supple Mouth: no lip lesion, mucus membranes moist Cardiovascular: S1S2 reg, no murmur Lungs: CTA bilateral, no rhonchi, no rales, no accessory muscle use Abdominal: soft, nondistended, nontender to palpation, no guarding Ext: muscle strength 5 out of 5 in all 4 extremities grossly, no gross muscle atrophy, no contractures, positive dorsalis pedis pulse bilateral, no edema Neuro: CN II-XI grossly intact, no gross focal neuro deficits, tremors of upper extremity Psych: Alert and oriented x 3, appropriate affect and mood Attestation: I have seen and examined this patient with my resident, assessment and plan discussed with the resident, agree with assessment and plan as written above. Dr. Caceres Patient Condition at Discharge: Undetermined Plan - Discharge Summary New Discharge Prescriptions: No Action No Known Home Medications Discharge Medication List No Known Home Medications 05/04/25 [History] Follow up Appointment(s)/Referral(s): None,Stated [Primary Care Provider] - 1-2 days Discharge Disposition: LEFT AGAINST MEDICAL ADVICE
[2025-05-05] MEDS ORDERED: DOBUTamine DRIP for NUC MED 500 MG in DEXTROSE/WATER 1 250ML.BAG IV PRN (06:00)
== END 2025-05-04 14:15 | disposition left against medical advice (07) | DRG 894 ==
LOC: EC 00:10 → 3SCARD 03:22 → OBSVTOIN 03:22 → 3SCARD 13:00
PROVIDERS: ADMIT Hospitalist; ATTEND Hospitalist
DX: F10.229 Alcohol dependence with intoxication, unspecified (principal); E87.20 Acidosis, unspecified; I20.0 Unstable angina; F10.239 Alcohol dependence with withdrawal, unspecified; F32.A Depression, unspecified; I11.9 Hypertensive heart disease without heart failure; I16.0 Hypertensive urgency; F17.210 Nicotine dependence, cigarettes, uncomplicated; R74.01 Elevation of levels of liver transaminase levels; G43.909 Migraine, unspecified, not intractable, without status migrainosus; F41.9 Anxiety disorder, unspecified; Y90.6 Blood alcohol level of 120-199 mg/100 ml; F90.9 Attention-deficit hyperactivity disorder, unspecified type; Z53.29 Procedure and treatment not carried out because of patient's decision for other reasons; Z86.14 Personal history of Methicillin resistant Staphylococcus aureus infection
CPT/HCPCS: 36415; 71046; 80053; 80320; 83735; 84484; 85025; 85610; 85730; 93005; 96361; 96365; 96366; 96375; 96376; 99285

== ENCOUNTER 2025-05-29 00:23 | Inpatient (IN) | payer MEDICAID, OTHER ==
[2025-05-29] MEDS: PANTOPRAZOLE 40 MG/10 ML VIAL IVP STA (01:00)
[2025-05-29] MEDS: ONDANSETRON 4 MG/2 ML VIAL IVP STA (01:01)
[2025-05-29] MEDS: SODIUM CHLORIDE 0.9% 1,000 ML IV ONE (01:01)
[2025-05-29 01:09] LABS: ALT 166 U/L (4-49); AST 141 U/L (17-59); African American GFR (CKD) >90 (>60 ml/min/1.73 sqM); Albumin 4.6 g/dL (3.5-5.0); Alkaline Phosphatase 160 U/L (38-126); Anion Gap 15 mmol/L; Blood Urea Nitrogen 14 mg/dL (9-20); Calcium 9.3 mg/dL (8.4-10.2); Carbon Dioxide 22 mmol/L (22-30); Chloride 106 mmol/L (98-107); Glucose 105 mg/dL (74-99); Magnesium 2.1 mg/dL (1.6-2.3); Non-African American GFR(CKD) >90 (>60 ml/min/1.73 sqM); Potassium 3.8 mmol/L (3.5-5.1); Sodium 143 mmol/L (137-145); Total Protein 8.6 g/dL (6.3-8.2)
[2025-05-29 01:15] LABS: Basophils # (A) 0.04 10*3/uL (0.00-0.10); Basophils % (A) 0.4 %; Eosinophils # (A) 0.06 10*3/uL (0.04-0.35); Eosinophils % (A) 0.6 %; HCT 48.0 % (39.6-50.0); HGB 17.7 g/dL (13.0-17.0); Lymphocytes # (A) 2.31 10*3/uL (0.90-5.00); Lymphocytes % (A) 22.4 %; MCH 33.3 pg (27.0-32.0); MCHC 36.9 g/dL (32.0-37.0); MCV 90.4 fL (80.0-97.0); Monocytes # (A) 0.67 10*3/uL (0.20-1.00); Monocytes % (A) 6.5 %; Neutrophils # (A) 7.19 10*3/uL (1.80-7.70); Neutrophils % (A) 69.9 %; Platelet Count 210 10*3/uL (140-440); RBC 5.31 10*6/uL (4.40-5.60); RDW 12.8 % (11.5-14.5); WBC 10.29 10*3/uL (4.50-10.00)
[2025-05-29] MEDS ORDERED: LORazepam 1 MG/0.5 ML VIAL IV PRN (02:23)
--- NOTE | 2025-05-29 04:37 | ED ---
General Adult HPI - General Source: patient, RN notes reviewed, old records reviewed Mode of arrival: EMS Limitations: no limitations <Darrell Lopez - Last Filed: 05/29/25 04:33> <Akira Stahl - Last Filed: 05/29/25 11:13> - General Chief complaint: Alcohol Stated complaint: ETOH Time Seen by Provider: 05/29/25 00:35 - History of Present Illness Initial comments: 40-year-old male who presents emergency department for psychiatric evaluation. States he is suicidal. Has been drinking alcohol as well. Has nonspecific suicidal ideations. States he thought of wanting to hang himself. Denies any attempts. Denies homicidal ideations, intents, plans. Denies any hallucinations. Has gone through alcohol withdrawals in the past. History of methamphetamine abuse as well as marijuana in addition to alcohol use. He has no acute complaints at this time. Presents for further evaluation. (Darrell Lopez) - Related Data Home Medications Medication Instructions Recorded Confirmed No Known Home Medications 05/04/25 05/04/25 Allergies Allergy/AdvReac Type Severity Reaction Status Date / Time No Known Allergies Allergy Verified 05/29/25 00:30 Review of Systems ROS Other: All systems not noted in ROS Statement are negative. <Darrell Lopez - Last Filed: 05/29/25 04:33> ROS Other: All systems not noted in ROS Statement are negative. <Akira Stahl - Last Filed: 05/29/25 11:13> ROS Statement: Those systems with pertinent positive or pertinent negative responses have been documented in the HPI. Review of Systems: CONST: Denies fever EYES: Denies blurry vision ENT: Denies nasal congestion C/V: Denies Chest pain RESP: Denies shortness of breath GI: Denies abdominal pain : Denies dysuria SKIN: Denies rash. MSK: Denies joint pain. NEURO: Denies headache (Darrell Lopez) Past Medical History Past Medical History: Hypertension Additional Past Medical History / Comment(s): Migraines, L lower extremity cellulitis/sepsis, pilonidal cysts/abscesses. History of Any Multi-Drug Resistant Organisms: MRSA Date of last positivie culture/infection: 07/26/21 MDRO Source:: Right Testicle Past Surgical History: Cholecystectomy, Orthopedic Surgery Additional Past Surgical History / Comment(s): I&D testicle, R tib/fib fracture repair with hardware. Past Anesthesia/Blood Transfusion Reactions: No Reported Reaction Past Psychological History: ADD/ADHD, Anxiety, Depression Smoking Status: Current every day smoker Past Alcohol Use History: Abuse, Daily, Heavy Past Drug Use History: Marijuana, Methamphetamine - Past Family History Mother Family Medical History: Cancer Additional Family Medical History / Comment(s): cervical cancer Father Family Medical History: Cancer Additional Family Medical History / Comment(s): Father in 1997 from lung and liver cancer <Darrell Lopez - Last Filed: 05/29/25 04:33> General Exam Limitations: no limitations <Darrell Lopez - Last Filed: 05/29/25 04:33> - General Exam Comments Initial Comments: General: Appears intoxicated with alcohol with no evidence of alcohol drawl at this time. HEAD: Normal with no signs of head trauma. EYES: PERRLA, EOMI, conjunctiva normal, no discharge. Pupils are 3 mm and equal bilaterally. ENT: Hearing grossly intact, normal oropharynx. RESPIRATORY: Clear breath sounds bilaterally. No wheezes, rales, or rhonchi. C/V: Regular rate and rhythm. S1 and S2 auscultated, no edema, peripheral pulses 2+ and intact throughout ABD: Abd is soft, nontender, nondistended EXT: No obvious deformity. SKIN: No rashes or lesions observed on exposed skin. NEURO: Alert and orient x 4. No focal deficits. (Darrell Lopez) Course Vital Signs 05/29/25 05/29/25 05/29/25 04:25 06:17 07:10 Temperature 97.7 F Pulse Rate 93 Respiratory 18 Rate Blood Pressure 185/119 171/112 165/93 O2 Sat by Pulse 98 Oximetry 05/29/25 10:12 Temperature Pulse Rate 97 Respiratory 18 Rate Blood Pressure 182/111 O2 Sat by Pulse 96 Oximetry Procedures - [facility] Protocol (Time Out) Nurse: Tomasz Jones <Darrell Lopez - Last Filed: 05/29/25 04:33> Medical Decision Making - Lab Data Result diagrams: 05/29/25 00:49 05/29/25 00:49 - EKG Data -: EKG Interpreted by Tn <Darrell Lopez - Last Filed: 05/29/25 04:33> - Lab Data Result diagrams: 05/29/25 00:49 05/29/25 00:49 <Akira Stahl - Last Filed: 05/29/25 11:13> - Medical Decision Making Was pt. sent in by a medical professional or institution (, DAMARI, COMMODITY DIRECTOR, urgent care, hospital, or retirement...) When possible be specific @ -No Did you speak to anyone other than the patient for history (EMS, parent, family, police, friend...)? What history was obtained from this source @ -No Did you review nursing and triage notes (agree or disagree)? Why? @ -I reviewed and agree with nursing and triage notes Were old charts reviewed (outside hosp., previous admission, EMS record, old EKG, old radiological studies, urgent care reports/EKG's, retirement records)? Report findings @ -Compared today's EKG with EKG from May 04, 2025 no significant acute change. Differential Diagnosis (chest pain, altered mental status, abdominal pain women, abdominal pain men, vaginal bleeding, weakness, fever, dyspnea, syncope, headache, dizziness, GI bleed, back pain, seizure, CVA, palpatations, mental health, musculoskeletal)? @ -Alcohol intoxication, differential Mental Health Depression, anxiety, bipolar, psychosis, schizophrenia, borderline personality, situational depression, adjustment disorder, behavioral disorder, brain tumor, malingering, substance abuse, encephalopathy, medication reaction, dementia, hypothyroidism, degenerative neurologic disorder, lupus.... This is not meant to be all-inclusive list EKG interpreted by me (3pts min.). @ -As above X-rays interpreted by me (1pt min.). @ -None done CT interpreted by me (1pt min.). @ -None done U/S interpreted by me (1pt. min.). @ -None done What testing was considered but not performed or refused? (CT, X-rays, U/S, labs)? Why? @ -None What meds were considered but not given or refused? Why? @ -None Did you discuss the management of the patient with other professionals (pr ofessionals i.e. DAMARI Newsome, COMMODITY DIRECTOR, lab, RT, psych nurse, social science professor, optical coating technician, teacher, booking police officer, patient case coordinator)? Give summary @ -EPS notified of the consult time of sobriety. Was smoking cessation discussed for >3mins.? @ -No Was critical care preformed (if so, how long)? @ -No Were there social determinants of health that impacted care today? How? (Homelessness, low income, unemployed, alcoholism, drug addiction, transportation, low edu. Level, literacy, decrease access to med. care, retirement, rehab)? @ -No Was there de-escalation of care discussed even if they declined (Discuss DNR or withdrawal of care, Hospice)? DNR status @ -No What co-morbidities impacted this encounter? (DM, HTN, Smoking, COPD, CAD, Cancer, CVA, ARF, Chemo, Hep., AIDS, mental health diagnosis, sleep apnea, morbid obesity)? @ -None Was patient admitted / discharged? Hospital course, mention meds given and route , prescriptions, significant lab abnormalities, going to OR and other pertinent info. @ -Based on patient's presentation and physical exam, presents intoxicated with alcohol with suicidal ideation. Suicide precautions ordered. BAT is elevated but we will obtain serum alcohol level. UDS is pending. Sitter ordered. Vitals within acceptable limits. Patient given IV fluids and Zofran as he was mildly nauseous. EKG shows no signs of acute ischemia. Labs remarkable for alcohol level of 230. Patient has chronically elevated LFTs and alk phos which are within baseline for him. Patient has a history of a cholecystectomy and therefore has no gallbladder. No other findings on workup. COVID swab negative. At this time, patient will be medically cleared upon sobriety. EPS will be contacted for evaluation at that time. Undiagnosed new problem with uncertain prognosis? @ -No Drug Therapy requiring intensive monitoring for toxicity (Heparin, Nitro, Insulin, Cardizem)? @ -No Were any procedures done? @ -No (Darrell Lopez) Was patient admitted / discharged? Hospital course, mention meds given and route, prescriptions, significant lab abnormalities, going to OR and other pertinent info. @ -Patient was evaluated by EPS and signed in for psychiatric treatment. Undiagnosed new problem with uncertain prognosis? @ -No Drug Therapy requiring intensive monitoring for toxicity (Heparin, Nitro, Insulin, Cardizem)? @ -No Were any procedures done? @ -No Diagnosis/symptom? @ -Depression, suicidal ideations Acute, or Chronic, or Acute on Chronic? @ -Default Uncomplicated (without systemic symptoms) or Complicated (systemic symptoms)? @ -Acute complicated Side effects of treatment? @ -No Exacerbation, Progression, or Severe Exacerbation? @ -No Poses a threat to life or bodily function? How? (Chest pain, [place], [place], pneumonia, PE, COPD, DKA, ARF, appy, cholecystitis, CVA, Diverticulitis, Homicidal, Suicidal, threat to staff... and all critical care pts) @ -No (Akira Stahl) - Lab Data Lab Results 05/29/25 05/29/25 05/29/25 Range/Units 00:35 00:49 00:49 WBC 10.29 H (4.50-10.00) 10*3/uL RBC 5.31 (4.40-5.60) 10*6/uL Hgb 17.7 H (13.0-17.0) g/dL Hct 48.0 (39.6-50.0) % MCV 90.4 (80.0-97.0) fL MCH 33.3 H (27.0-32.0) pg MCHC 36.9 (32.0-37.0) g/dL Plt Count 210 (140-440) 10*3/uL MPV 10.8 (9.5-12.2) fL Immature Gran % (Auto) 0.2 % Neutrophils % 69.9 % Lymphocytes % 22.4 % Monocytes % 6.5 % Eosinophils % 0.6 % Basophils % 0.4 % Immature Gran # 0.02 (0.00-0.04) 10*3/uL Neutrophils # 7.19 (1.80-7.70) 10*3/uL Lymphocytes # 2.31 (0.90-5.00) 10*3/uL Monocytes # 0.67 (0.20-1.00) 10*3/uL Eosinophils # 0.06 (0.04-0.35) 10*3/uL Basophils # 0.04 (0.00-0.10) 10*3/uL Sodium 143 (137-145) mmol/L Potassium 3.8 (3.5-5.1) mmol/L Chloride 106 (98-107) mmol/L Carbon Dioxide 22 (22-30) mmol/L Anion Gap 15 mmol/L BUN 14 (9-20) mg/dL Creatinine 0.95 (0.66-1.25) mg/dL Est GFR (CKD-EPI)AfAm >90 (>60 ml/min/1.73 sqM) Est GFR (CKD-EPI)NonAf >90 (>60 ml/min/1.73 sqM) Glucose 105 H (74-99) mg/dL Calcium 9.3 (8.4-10.2) mg/dL Magnesium 2.1 (1.6-2.3) mg/dL Total Bilirubin 0.8 (0.2-1.3) mg/dL AST 141 H (17-59) U/L ALT 166 H (4-49) U/L Alkaline Phosphatase 160 H (38-126) U/L Total Protein 8.6 H (6.3-8.2) g/dL Albumin 4.6 (3.5-5.0) g/dL Urine Color Colorless Urine Appearance Clear (Clear) Urine pH 6.0 (5.0-8.0) Ur Specific [place] 1.002 (1.001-1.035) Urine Protein Negative (Negative) Urine Glucose (UA) Negative (Negative) Urine Ketones Negative (Negative) Urine Blood Negative (Negative) Urine Nitrite Negative (Negative) Urine Bilirubin Negative (Negative) Urine Urobilinogen <2.0 (<2.0) mg/dL Ur Leukocyte Esterase Negative (Negative) Urine Opiates Screen Not Detected (NotDetected) Ur Oxycodone Screen Not Detected (NotDetected) Urine Methadone Screen Not Detected (NotDetected) Ur Barbiturates Screen Not Detected (NotDetected) U Tricyclic Antidepress Not Detected (NotDetected) Ur Phencyclidine Scrn Not Detected (NotDetected) Ur Amphetamines Screen Not Detected (NotDetected) U Methamphetamines Scrn Not Detected (NotDetected) U Benzodiazepines Scrn Not Detected (NotDetected) Urine Cocaine Screen Not Detected (NotDetected) U Marijuana (THC) Screen Not Detected (NotDetected) Serum Alcohol 230 H* mg/dL SARS-CoV-2 (PCR) (Not Detectd) 05/29/25 Range/Units 00:49 WBC (4.50-10.00) 10*3/uL RBC (4.40-5.60) 10*6/uL Hgb (13.0-17.0) g/dL Hct (39.6-50.0) % MCV (80.0-97.0) fL MCH (27.0-32.0) pg MCHC (32.0-37.0) g/dL Plt Count (140-440) 10*3/uL MPV (9.5-12.2) fL Immature Gran % (Auto) % Neutrophils % % Lymphocytes % % Monocytes % % Eosinophils % % Basophils % % Immature Gran # (0.00-0.04) 10*3/uL Neutrophils # (1.80-7.70) 10*3/uL Lymphocytes # (0.90-5.00) 10*3/uL Monocytes # (0.20-1.00) 10*3/uL Eosinophils # (0.04-0.35) 10*3/uL Basophils # (0.00-0.10) 10*3/uL Sodium (137-145) mmol/L Potassium (3.5-5.1) mmol/L Chloride (98-107) mmol/L Carbon Dioxide (22-30) mmol/L Anion Gap mmol/L BUN (9-20) mg/dL Creatinine (0.66-1.25) mg/dL Est GFR (CKD-EPI)AfAm (>60 ml/min/1.73 sqM) Est GFR (CKD-EPI)NonAf (>60 ml/min/1.73 sqM) Glucose (74-99) mg/dL Calcium (8.4-10.2) mg/dL Magnesium (1.6-2.3) mg/dL Total Bilirubin (0.2-1.3) mg/dL AST (17-59) U/L ALT (4-49) U/L Alkaline Phosphatase (38-126) U/L Total Protein (6.3-8.2) g/dL Albumin (3.5-5.0) g/dL Urine Color Urine Appearance (Clear) Urine pH (5.0-8.0) Ur Specific [place] (1.001-1.035) Urine Protein (Negative) Urine Glucose (UA) (Negative) Urine Ketones (Negative) Urine Blood (Negative) Urine Nitrite (Negative) Urine Bilirubin (Negative) Urine Urobilinogen (<2.0) mg/dL Ur Leukocyte Esterase (Negative) Urine Opiates Screen (NotDetected) Ur Oxycodone Screen (NotDetected) Urine Methadone Screen (NotDetected) Ur Barbiturates Screen (NotDetected) U Tricyclic Antidepress (NotDetected) Ur Phencyclidine Scrn (NotDetected) Ur Amphetamines Screen (NotDetected) U Methamphetamines Scrn (NotDetected) U Benzodiazepines Scrn (NotDetected) Urine Cocaine Screen (NotDetected) U Marijuana (THC) Screen (NotDetected) Serum Alcohol mg/dL SARS-CoV-2 (PCR) Not Detected (Not Detectd) - EKG Data EKG Comments: 12-lead Electrocardiogram Interpretation Note EKG was reviewed and interpreted by myself. 12-lead ECG performed at 0119 is interpreted by me as revealing normal sinus rhythm at a rate of 86 beats per minute. [place] is normal. SD interval is 151 ms, QRS duration is 113 ms, QTc is 437 ms.. There were no ST or T wave abnormalities to suggest myocardial ischemia or injury. R wave progression across the precordium was satisfactory. By my interpretation this EKG is non-diagnostic for acute ischemia. (Darrell Lopez) Disposition <Darrell Lopez - Last Filed: 05/29/25 04:33> Time of Disposition: 11:13 <Akira Stahl - Last Filed: 05/29/25 11:13> Clinical Impression: Depression, Suicidal ideation Disposition: ADMITTED IP TO THIS HOSP Referrals: None,Stated [Primary Care Provider] - 1-2 days
[2025-05-29] MEDS: SODIUM CHLORIDE 0.9% 1,000 ML IV SCH (04:43)
[2025-05-29] MEDS: LORazepam 1 MG/0.5 ML VIAL IV PRN ×2 (04:44→10:16)
[2025-05-29] MEDS: hydrALAZINE HCL 20 MG/ML 1 ML VIAL IVP STA ×4 (05:05→12:03)
[2025-05-29 09:03] LABS: Bilirubin,Urine Negative (Negative); Blood,Urine Negative (Negative); Color,Urine Colorless; Glucose,Urine (UA) Negative (Negative); Ketones,Urine Negative (Negative); Leukocyte Esterase,Urine Negative (Negative); Nitrite,Urine Negative (Negative); PH, Urine 6.0 (5.0-8.0); Protein,Urine Negative (Negative); Specific Gravity,Urine 1.002 (1.001-1.035); Urobilinogen,Urine <2.0 mg/dL (<2.0)
[2025-05-29 09:15] LABS: Barbiturate Screen,Urine Not Detected (NotDetected); Benzodiazepines Screen,Urine Not Detected (NotDetected); Opiate Screen,Urine Not Detected (NotDetected); Oxycodone Screen, Urine Not Detected (NotDetected); Phencyclidine Screen,Urine Not Detected (NotDetected); Tricyclic Antidepressant,Urine Not Detected (NotDetected); Urn Cannabinoid Scrn Not Detected (NotDetected)
[2025-05-29] MEDS: ACETAMINOPHEN TAB 500 MG TAB PO STA (13:08)
[2025-05-29] MEDS: NICOTINE 21MG/24HR PATCH TRANSDERM STA (20:36)
[2025-05-29] MEDS: LORazepam 1 MG/0.5 ML VIAL IV STA (20:42)
[2025-05-30] MEDS: LORazepam 1 MG/0.5 ML VIAL IV STA (00:32)
[2025-05-30] MEDS ORDERED: ACETAMINOPHEN TAB 325 MG TAB PO PRN (01:59)
[2025-05-30] MEDS ORDERED: MAG HYDROX/AL HYDROX/SIMETH 355 ML BOTTLE PO PRN (01:59)
[2025-05-30] MEDS ORDERED: MAGNESIUM HYDROXIDE 2,400 MG/30 ML CUP PO PRN (01:59)
[2025-05-30] MEDS ORDERED: IBUPROFEN 600 MG TAB PO PRN (01:59)
[2025-05-30] MEDS: NICOTINE GUM (POLACRILEX) 2 MG GUM BUCCAL PRN (03:22)
[2025-05-30] MEDS: LORazepam 1 MG TAB PO PRN (03:23)
[2025-05-30 08:39] LABS: Basophils # (A) 0.03 10*3/uL (0.00-0.10); Basophils % (A) 0.3 %; Eosinophils # (A) 0.10 10*3/uL (0.04-0.35); Eosinophils % (A) 1.1 %; HCT 43.5 % (39.6-50.0); HGB 16.0 g/dL (13.0-17.0); Lymphocytes # (A) 1.96 10*3/uL (0.90-5.00); Lymphocytes % (A) 20.9 %; MCH 33.8 pg (27.0-32.0); MCHC 36.8 g/dL (32.0-37.0); MCV 92.0 fL (80.0-97.0); Monocytes # (A) 0.83 10*3/uL (0.20-1.00); Monocytes % (A) 8.8 %; Neutrophils # (A) 6.46 10*3/uL (1.80-7.70); Neutrophils % (A) 68.7 %; Platelet Count 184 10*3/uL (140-440); RBC 4.73 10*6/uL (4.40-5.60); RDW 13.3 % (11.5-14.5); WBC 9.40 10*3/uL (4.50-10.00)
[2025-05-30] MEDS: diazePAM 5 MG TAB PO STA (08:47)
[2025-05-30] MEDS: LORazepam 1 MG TAB PO SCH (09:03)
[2025-05-30] MEDS: NICOTINE 14MG/24HR PATCH TRANSDERM SCH (09:08)
[2025-05-30 12:23] LABS: ALT 169.0 U/L (4-49); AST 137.0 U/L (17-59); Albumin 4.6 g/dL (3.5-5.0); Alkaline Phosphatase 158.0 U/L (38-126); Bilirubin, Delta 0.3 mg/dL (0.0-0.2); Bilirubin,Unconjugated 0.4 mg/dL (0.0-1.1); Total Protein 8.3 g/dL (6.3-8.2)
[2025-05-30 13:39] LABS: Cholesterol 122.00 mg/dL (0.00-200.00); HDL Cholesterol 77.70 mg/dL (40.00-60.00); LDL Cholesterol,Calculated 31.8 mg/dL (0.0-131.0); Triglycerides 62.50 mg/dL (0.00-149.00); VLDL Calculation 12.50 mg/dL (5.00-40.00)
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
[2025-05-30] MEDS: QUEtiapine 100 MG TAB PO SCH (20:46)
--- NOTE | 2025-05-31 18:18 | P.MDCNMH ---
History of Present Illness H&P Date: 05/31/25 Chief Complaint: Medical evaluation 40-year-old man with history of hypertension, alcohol dependence, nicotine dependence presented for medical evaluation. Patient has no active complaints at this time. Denies any active medical issues. Denies any chronic medical issues. He does not follow-up with a primary care doctor. Patient is afebrile, 165/95, heart rate 88, 98% on room air. CBC is unremarkable. Basic metabolic panel is unremarkable. Liver function test show elevated liver enzymes of AST to 137, ALT of 169, alkaline phosphatase to 158. Lipid panel shows LDL of 31. Urinalysis is unremarkable. Urine tox cream was negative. Alcohol level on admission was 230. COVID was negative. EKG on admission showed left axis deviation with mildly delayed R wave progression, otherwise sinus rhythm with no evidence of ischemia. All Systems reviewed and pertinent positives and negatives noted in HPI, all other symptoms are negative Gen: In NAD, non-toxic HEENT: normocephalic, atraumatic, hearing acuity is intant, mucous membranes moist CVS: perfusing all extremities well, no pitting edema, Respiratory: symmetric chest expansion, no accessory muscle use, GI: soft, NTTP, ND, : no suprapubic tenderness, no CVA tenderness MSK/Derm: no rashes, cyanosis Neuro: CN II-XII intact, no motor weakness, Psych: cooperative, euthymic mood, judgment and insight is intact Labs and imaging as above Assessment/plan: Hypertension, stage II -Initiate lisinopril, amlodipine - Monitor for improvement - Outpatient follow-up and referral to PCP Mildly overweight -Weight loss referral - Diet and exercise counseling - Outpatient follow-up Alcohol dependence - Ativan as needed Nicotine dependence - NRT Thank for this consult, please reach out with any further questions or concerns Past Medical History Past Medical History: Hypertension Additional Past Medical History / Comment(s): Migraines, L lower extremity cellulitis/sepsis, pilonidal cysts/abscesses. History of Any Multi-Drug Resistant Organisms: None Reported, MRSA Date of last positivie culture/infection: 07/26/21 MDRO Source:: Right Testicle Past Surgical History: Cholecystectomy, Orthopedic Surgery Additional Past Surgical History / Comment(s): I&D testicle, R tib/fib fracture repair with hardware. Past Anesthesia/Blood Transfusion Reactions: No Reported Reaction Smoking Status: Current every day smoker - Past Family History Mother Family Medical History: Cancer Additional Family Medical History / Comment(s): cervical cancer Father Family Medical History: Cancer Additional Family Medical History / Comment(s): Father in 1997 from lung and liver cancer Medications and Allergies Home Medications Medication Instructions Recorded Confirmed Type No Known Home Medications 05/04/25 05/29/25 History Allergies Allergy/AdvReac Type Severity Reaction Status Date / Time No Known Allergies Allergy Verified 05/29/25 00:30 Physical Exam Osteopathic Statement: *. No significant issues noted on an osteopathic structural exam other than those noted in the History and Physical/Consult. Vitals: Vital Signs Temp Pulse Resp BP Pulse Ox 05/31/25 12:46 97.8 F 88 16 165/95 98 05/30/25 21:00 97.6 F 86 18 167/93 96 Intake and Output 05/31/25 05/31/25 05/31/25 06:59 14:59 22:59 Other: Weight 82.2 kg Cranial Nerve Examination - Cranial Nerves Cranial Nerve II- Optic: Intact Cranial Nerve III- Oculomotor: Intact Cranial Nerve IV- Trochlear: Intact Cranial Nerve V- Trigeminal: Intact Cranial Nerve - Abducens: Intact Cranial Nerve VII- Facial: Intact Cranial Nerve VIII- Auditory: Intact Cranial Nerve IX- Glossopharyngeal: Intact Cranial Nerve X- Vagus: Intact Cranial Nerve XI- Accessory: Intact Cranial Nerve XII- Hypoglossal: Intact Results CBC & Chem 7: 05/30/25 08:02 05/29/25 00:49
[2025-05-31] MEDS: amLODIPine 10 MG TAB PO SCH (20:37)
--- NOTE | 2025-05-31 22:07 | P.PN ---
Progress Note - Text Progress Note Date: 05/31/25 Interval history: Patient was seen wandering the hallways and was directable and agreeable to sp rani with service writer. Yesterday he received Haldol 5 mg po x 2 for agitation, and has not required any PRN Haldol so far today. In total yesterday (05/30/25), he received Ativan 7 mg po and Ativan 1 mg IV for his alcohol withdrawal. So far today, he has only received the Ativan 1 mg po TID scheduled for alcohol withdrawal, and did not require any additional Ativan per [facility] protocol. His alcohol withdrawal appears well controlled, and his vitals today are stable. He reports his mood is better today, reports he slept well last night. At this time patient denies any suicidal or homicidal ideation, intent or plan. Denies any auditory or visual hallucinations. Patient denies any side effects from the medications and has been compliant with meds. Mental status exam: General Appearance: Patient appears to be slightly older than stated age, improving fair hygiene and grooming. Tattoos on arms and neck. Behavior: Patient is standing without any agitated behavior, appears more calm today Speech: Patient's speech is fluent and non-pressured. Mood/Affect: Patient reports their mood is better today, affect is congruent and constricted. Suicidality/Homicidality: Patient denies having any homicidal ideation intent or plan. Denies any suicidal ideations intent or plan Perceptions: Patient denies any visual hallucinations and denies any auditory hallucinations Though content/process: There is no evidence of any delusional thought content and thought process is linear and goal-directed. Memory and concentration: AOX3, grossly intact for the purposes of this session. Judgment and insight: Poor Assessment/Plan: Continue with current diagnosis. Patient continues to meet criteria for inpatient psychiatric admission for symptom stabilization and safety. Will decrease Ativan 1 mg TID scheduled for alcohol withdrawal to 0.5 mg TID scheduled starting tomorrow morning, with plan to continue to taper and discontinue prior to discharge. Continue Seroquel 100 mg QHS for mood/sleep. Monitor for medication compliance and for any psychotropic medication side effects. Will continue to monitor ongoing response to treatment. Encouraged participation in milieu.
[2025-05-31] MEDS: LORazepam 0.5 MG TAB PO SCH (22:18)
[2025-06-01] MEDS: LORazepam 1 MG TAB PO PRN (01:55)
--- NOTE | 2025-06-01 10:50 | P.PN ---
Progress Note - Text Progress Note Date: 06/01/25 Interval history: Patient was seen wandering the hallways and was directable and agreeable to s peak with story writer. Patient was fairly anxious and persistent on wanting to speak with story writer. He states that he is not suicidal and claims that he never was before coming in the hospital. He claims that he was dealing with an elevated blood pressure and did not know what to do. He did admit to drinking alcohol however was minimizing it, not reporting any withdrawals or any history of withdrawals. Claims that he did have issues with sleep last night due to her restlessness and was going to try Requip with the Seroquel. He was also agreeable to try Zoloft today. Denies any depression at this time. Denies any issues with appetite. Has been going to groups. At this time patient denies any suicidal or homicidal ideation, intent or plan. Denies any auditory or visual hallucinations. Patient denies any side effects from the medications and has been compliant with meds. Mental status exam: General Appearance: Patient appears to be slightly older than stated age, improving fair hygiene and grooming. Tattoos on arms and neck. Behavior: Patient is standing without any agitated behavior, appears more calm today Speech: Patient's speech is fluent and non-pressured. Mood/Affect: Patient reports their mood is better today, affect is congruent and constricted. Improving mildly Suicidality/Homicidality: Patient denies having any homicidal ideation intent or plan. Denies any suicidal ideations intent or plan Perceptions: Patient denies any visual hallucinations and denies any auditory hallucinations Though content/process: There is no evidence of any delusional thought content a nd thought process is linear and goal-directed. Focused on discharge Memory and concentration: AOX3, grossly intact for the purposes of this session. Judgment and insight: Chronically poor, improving mildly Assessment/Plan: Continue with current diagnosis. Patient continues to meet criteria for inpatient psychiatric admission for symptom stabilization and safety. Will decrease Ativan 1 mg BID scheduled for alcohol withdrawal and dc tomorrow. Continue Seroquel 100 mg QHS for mood/sleep. Added to Requip 0.5 mg nightly For restlessnes. Added Zoloft 50 mg daily for mood/anxiety. Monitor for medication compliance and for any psychotropic medication side effects. Will continue to monitor ongoing response to treatment. Encouraged participation in milieu. Likely discharge tomorrow patient is doing well. He is refusing rehab at this time.
[2025-06-01] MEDS: SERTRALINE 50 MG TAB PO SCH (11:02)
[2025-06-01] MEDS: LORazepam 0.5 MG TAB PO SCH (19:43)
[2025-06-01 20:16] VITALS: RESP 16
[2025-06-01] MEDS: hydroCHLOROthiazide 25 MG TAB PO SCH (20:33)
[2025-06-02 08:15] VITALS: PULSE 100; TEMP 97.3
[2025-06-02 09:07] VITALS: BP 154/99
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
== END 2025-06-02 12:45 | disposition home or self-care (01) | DRG 751 ==
LOC: EC 00:23 → 3MHU 05-30 01:56
PROVIDERS: ADMIT Psychiatry & Neurology Psychiatry; ATTEND Psychiatry & Neurology Psychiatry
DX: F39 Unspecified mood [affective] disorder (principal); F10.229 Alcohol dependence with intoxication, unspecified; F10.239 Alcohol dependence with withdrawal, unspecified; F11.11 Opioid abuse, in remission; F15.11 Other stimulant abuse, in remission; F17.210 Nicotine dependence, cigarettes, uncomplicated; F31.9 Bipolar disorder, unspecified; F41.9 Anxiety disorder, unspecified; G25.81 Restless legs syndrome; G47.00 Insomnia, unspecified; I10 Essential (primary) hypertension; R45.851 Suicidal ideations; Y90.7 Blood alcohol level of 200-239 mg/100 ml; Z65.3 Problems related to other legal circumstances; E66.3 Overweight; Z79.899 Other long term (current) drug therapy; Z11.52 Encounter for screening for COVID-19
CPT/HCPCS: 36415; 80053; 80061; 80076; 80306; 80320; 81003; 83036; 83735; 84443; 85025; 87635; 93005; 96361; 96374; 96375; 96376; 99285